=== PATIENT | female | born 1940 | race Caucasian/White ===

== ENCOUNTER 2020-11-16 15:15 | Emergency (ER) | payer MEDICARE, OTHER, SELFPAY ==
[2020-11-16 15:23] VITALS: BP 130/79; BP 136/78; PULSE 88; PULSE 90; RESP 20; TEMP 37.1; O2SAT 94; O2SAT 98; BMI 28.2
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
[2020-11-16 16:03] LABS: Basophils Percent Auto 0.2 % (0-2); Eosinophils Percent Auto 0.1 % (0-4); Hematocrit 34.3 % (37-47); Hemoglobin 11.1 g/dl (12.0-16.0); Imm Gran Abs Auto 0.04 X10*3/uL (0.00-0.03); Imm Gran Pct Auto 0.4 % (0.0-0.4); Lymphocytes Absolute Auto 0.5 X10*3/uL (1.2-4.9); Lymphocytes Percent Auto 5.9 % (20-40); MANUAL DIFF FLAG SCAN; Mean Corpuscular HGB Conc 32.4 g/dl (31.0-35.0); Mean Corpuscular Hemoglobin 31.4 pg (27.0-33.0); Mean Corpuscular Volume 96.9 fL (80-98); Mean Platelet Volume 9.4 fL (9.4-12.3); Monocytes Absolute Auto 0.5 X10*3/uL (0.1-1.2); Monocytes Percent Auto 5.6 % (2-11); Neutrophils Absolute Auto 8.1 X10*3/uL (2.0-8.3); Neutrophils Percent Auto 87.8 % (45-73); Platelet Count 226 X10*3/uL (160-400); Red Blood Count 3.54 X10*6/uL (4.20-5.50); SCAN SMEAR FLAG 1; White Blood Count 9.2 X10*3/uL (4.8-10.8)
[2020-11-16 16:23] LABS: SLIDE REVIEW VERIFIED
[2020-11-16 16:26] LABS: Prothrombin Time 118.8 SEC (10.8-13.0)
[2020-11-16 16:30] LABS: INTERNATIONAL NORM RATIO 9.8 (0.9-1.1); Partial Thromboplastin Time 73.5 SEC (24.1-38.0)
[2020-11-16 16:50] LABS: B Type Natriuretic Peptide 361 pg/mL (<100)
--- NOTE | 2020-11-16 16:56 | ECG_ITS ---
Test Reason : TACHYCARDIA Blood Pressure : / mmHG Vent. Rate : 103 BPM Atrial Rate : 141 BPM P-R Int : 000 ms QRS Dur : 148 ms QT Int : 406 ms P-R-T Axes : 000 083 -41 degrees QTc Int : 531 ms Atrial fibrillation with rapid ventricular response Right bundle branch block T wave abnormality, consider lateral ischemia Abnormal ECG No previous ECGs available Referred By: Shanique Ferguson Electronically Signed By:Dougie Mckeon
[2020-11-16 17:10] VITALS: BP 105/61; PULSE 107; RESP 20; O2SAT 95
[2020-11-16 17:25] VITALS: PULSE 125
[2020-11-16] MEDS: Metoprolol Tartrate 25 MG TABLET PO (17:25)
[2020-11-16] MEDS: Phytonadione (Vit K1) Oral 10 MG/ML AMPUL 2.5 MG PO (17:33)
[2020-11-16 18:17] VITALS: PULSE 99
--- NOTE | 2020-11-16 19:37 | MHC.CM.ED ---
Met with pt. Alert and orientated x3. Pt lives with and daughter in apartment with bedrooms and bathroom on second floor. States uses a walker ,cane and has a wheelchair. Has psoriastic arthritis. HAs difficulty with stairs and sometimes stays in her room upstairs and her family brings her food. Can ambulate short distance to BR. Pt states she has a very difficult time ambulating. Fell on stairs and bruised her elbow. INR 10. Thought she could rent a hospital bed for tomorrow. CM called [facility]- rental of hospital bed $185-$250/month. Can order through insurance, but that requires prescription, assessments and forms completed by PCP. Cannot deliver a bed to pt until Thursday or Thursday of next week. Pt agreeable to PT assessment in the am. Pt is homebound and will need VNA with INR checks every 2 days. Pt agreeable to [facility] and possible Home PT if recommended. Shanique SOSA aware and agreeable to plan. Will given hospital bed rental information to pt to consider. Pt unsure if she will rent or stay in her room upstairs. Pt tells CM they are looking for an apartment on one floor and her has an appointment with [facility] on Thursday for assistance. Pt requests an ambulance for transport home, so they can bring her into her room. Pt aware that insurance will not cover the cost of an ambulance home. Informed it could cost as much as $800. Pt states she will pay the bill. Referrals placed with [facility]. CM to follow for d/c needs.
[2020-11-16 20:45] VITALS: BP 115/67; PULSE 98; RESP 18; O2SAT 97
[2020-11-16 21:32] LABS: Alanine Aminotransferase 9 U/L (0-31); Albumin Level 3.1 g/dL (3.5-5.0); Alkaline Phosphatase 107 U/L (39-117); Anion Gap 12 (12-20); Aspartate Amino Transferase 15 U/L (5-31); Bilirubin Direct 0.3 mg/dL (0.0-0.5); Bilirubin Total 0.7 mg/dL (0.0-1.0); Blood Urea Nitrogen 23 mg/dL (9-16); Calcium 7.4 mg/dL (8.4-10.2); Carbon Dioxide 32 mmol/L (22-29); Chloride 99 mmol/L (96-108); Creatinine Clr Calc Pharmacy 55.9; Estimated Glomerular Filt Rate > 60; Glucose Random 142 mg/dL (60-115); Magnesium 1.8 mg/dL (1.6-2.6); Potassium 2.7 mmol/L (3.3-5.1); Sodium 140 mmol/L (135-145); Total Protein 5.6 g/dL (6.5-8.0)
--- NOTE | 2020-11-16 22:01 | MHC.CM.ED ---
Referrals made to [facility] for fci, INR checks every 2 days, medication management, chronic disease management and possible PT pending evaluation in am. Pt is homebound. Given CM contact card and information on hospital bed rentals from [facility]. Pt will need BLS transport home. Understands she may be billed. CM to follow for d/c needs.
[2020-11-17 00:39] VITALS: BP 101/54; PULSE 99; RESP 15; TEMP 37.1; O2SAT 96
[2020-11-17 00:46] LABS: Glucose Urine UA NEG (NEG); Leukocyte Esterase Urine 2+ (NEG); Nitrite Urine POS (NEG); Specific Gravity - Urine 1.015 (1.005-1.025); UACC Culture Trigger YES; Urine Blood TRACE (NEG); Urine Ketones NEG (NEG); Urine Protein NEG (NEG-TRACE)
[2020-11-17 00:47] LABS: Appearance Urine HAZY; Color Urine YELLOW
[2020-11-17 00:55] LABS: Bacteria Urine 3+ /LPF; RBC Urine 0-2 /HPF (0); Squamous Epithelial Cell Urine 1+ /LPF
[2020-11-17 00:56] LABS: Mucus Urine TRACE /LPF
[2020-11-17 02:00] VITALS: BP 101/54; PULSE 93; RESP 20; O2SAT 100
[2020-11-17 03:22] VITALS: BP 101/64; PULSE 90; RESP 18; O2SAT 100
[2020-11-17 04:00] VITALS: BP 84/53; PULSE 95; RESP 14; O2SAT 96
[2020-11-17 05:35] VITALS: BP 98/66; PULSE 100; RESP 16; O2SAT 96
[2020-11-17 06:30] LABS: MANUAL DIFF FLAG NO
[2020-11-17 06:32] LABS: Basophils Percent Auto 0.2 % (0-2); Eosinophils Absolute Auto 0.1 X10*3/uL (0.0-0.4); Eosinophils Percent Auto 1.5 % (0-4); Hemoglobin 9.9 g/dl (12.0-16.0); Imm Gran Abs Auto 0.01 X10*3/uL (0.00-0.03); Imm Gran Pct Auto 0.2 % (0.0-0.4); Lymphocytes Absolute Auto 0.8 X10*3/uL (1.2-4.9); Lymphocytes Percent Auto 13.2 % (20-40); Mean Corpuscular HGB Conc 31.9 g/dl (31.0-35.0); Mean Corpuscular Hemoglobin 31.2 pg (27.0-33.0); Mean Corpuscular Volume 97.8 fL (80-98); Mean Platelet Volume 9.3 fL (9.4-12.3); Monocytes Absolute Auto 0.5 X10*3/uL (0.1-1.2); Monocytes Percent Auto 9.3 % (2-11); Neutrophils Absolute Auto 4.4 X10*3/uL (2.0-8.3); Neutrophils Percent Auto 75.6 % (45-73); Platelet Count 197 X10*3/uL (160-400); Red Blood Count 3.17 X10*6/uL (4.20-5.50); White Blood Count 5.8 X10*3/uL (4.8-10.8)
[2020-11-17 06:37] LABS: INTERNATIONAL NORM RATIO 2.3 (0.9-1.1); Prothrombin Time 27.7 SEC (10.8-13.0)
[2020-11-17] MEDS: Bumetanide 1 MG TABLET 3 MG PO (10:21)
[2020-11-17] MEDS: Potassium Chloride ER 20 MEQ TAB.ER.PRT 40 MEQ PO ×2 (10:21)
[2020-11-17 10:22] VITALS: BP 110/62; PULSE 98
[2020-11-17] MEDS: Metoprolol Tartrate 25 MG TABLET PO (10:22)
[2020-11-17 11:26] LABS: INTERNATIONAL NORM RATIO 1.7 (0.9-1.1); Prothrombin Time 20.2 SEC (10.8-13.0)
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
[2020-11-17 13:48] LABS: Potassium 3.3 mmol/L (3.3-5.1)
== END 2020-11-17 16:13 | disposition home or self-care (01) ==
PROVIDERS: Physician Assistant; Emergency Provider Emergency Medicine
DX: R79.89 Other specified abnormal findings of blood chemistry (principal); M79.605 Pain in left leg; M79.604 Pain in right leg; F41.1 Generalized anxiety disorder; F43.0 Acute stress reaction; Z79.899 Other long term (current) drug therapy
CPT/HCPCS: 36415; 80048; 80076; 81001; 81003; 83735; 83880; 84132; 85025; 85610; 85730; 86850; 86900; 86901; 87086; 93005; 97162; 99285; J3430

== ENCOUNTER 2021-02-22 15:42 | Outpatient (REF) | payer MEDICARE, OTHER, SELFPAY ==
[2021-02-22 16:05] LABS: Potassium 3.4 mmol/L (3.3-5.1)
== END 2021-02-22 15:43 | disposition home or self-care (01) ==
LOC: HO.LNP 15:42
PROVIDERS: Visit Provider Family Medicine
DX: E78.6 Lipoprotein deficiency (principal)
CPT/HCPCS: 84132

== ENCOUNTER 2022-02-19 10:55 | Inpatient (IN) | payer MEDICARE, OTHER, SELFPAY ==
[2022-02-19] VITALS (8 sets, daily range): BP systolic 72–150; BP diastolic 29–90; PULSE 80–123; RESP 11–20; TEMP 36.8–36.9; O2SAT 92–98; BMI 28.9
--- NOTE | ~2022-02-19 | XR_ITS ---
EXAMINATION: XR CHEST CLINICAL INFORMATION: Weakness COMPARISON: 02/20/2022 and 11/22/2018 TECHNIQUE: AP and lateral in 4 parts FINDINGS: Persistent abnormal opacity in the lower left hemithorax. Hyperlucent left upper lung suggests partial collapse of the left lower lobe. Suspect a combination of left lower lobe disease and effusion. Right lung is grossly clear. Heart and mediastinum are prominent and shifted to the left but grossly stable. Old healed right rib fractures. XR/XR chest 2V IMPRESSION: Persistent abnormal opacity at the left lung base, likely consolidation, collapse and effusion.
--- NOTE | ~2022-02-19 | CT_ITS ---
EXAMINATION: CT ANGIOGRAM OF THE CHEST WITH AND WITHOUT CONTRAST (CT PULMONARY ANGIOGRAM FOR PE) CLINICAL INFORMATION: Reason for Exam r/o PE, SOB COMPARISON: CT chest 02/21/2022 TECHNIQUE: Prior to contrast administration, noncontrast localization images were obtained. Subsequently, multidetector volumetric imaging was performed from the thoracic inlet to below the diaphragms following the administration of 75 mL Omnipaque 350 intravenous contrast. No contrast reaction reported Sagittal, coronal, and MIP oblique sagittal reformatted images were obtained on the CT workstation, uploaded to PACS, and reviewed. This CT examination was performed using dose optimization techniques as appropriate, variously including the following: *Automated exposure control *Adjustment of mA and/or kV according to patient size (this includes techniques or standardized protocols for targeted exams where dose is matched to indication/reason for exam; i.e. extremities or head) *Use of iterative reconstruction technique Total exam dose-length product 573 mGy-cm FINDINGS: QUALITY OF STUDY/CONTRAST BOLUS: Satisfactory. PULMONARY ARTERIES: No central or segmental pulmonary emboli. Main pulmonary artery is 4.2 cm diameter suggesting pulmonary hypertension. THORACIC AORTA: No aneurysm or dissection. LUNGS and PLEURA: Bilateral pleural effusions are seen, increased in size since 02/21/2022. There is collapse of the entire left lower lobe with only a small amount of aerated lung remaining at the left apex, significantly worse when compared to 02/21/2022. Bullous formation is seen indicative of COPD. On the right, lower lobe atelectasis is present. The right upper lobe and right middle lobe aerated. No suspicious lung masses are seen. PLEURA: No pleural effusion or pneumothorax. MEDIASTINUM: Normal heart size. ET tube present about 2 cm above the ryan. No pericardial effusion. No hilar or mediastinal lymphadenopathy. No evidence of septal bowing or right heart strain. CHEST WALL/AXILLA: No axillary or internal mammary lymphadenopathy. OSSEOUS STRUCTURES: Marked kyphoscoliosis is seen with osteopenia and near vertebral plana involving the T12 vertebral body UPPER ABDOMEN: An NG tube is present with its tip beyond the [id number]. No reflux of contrast into the hepatic veins to suggest elevated right heart pressures. CT/CT angio chest PE protocol IMPRESSION: 1. No evidence of pulmonary emboli. 2. Bilateral pleural effusions with complete collapse of the left lower lobe and partial atelectasis right lower lobe. 3. Underlying COPD. VTE: negative.
--- NOTE | ~2022-02-19 | CT_ITS ---
EXAMINATION: CT CHEST WITHOUT CONTRAST CLINICAL INFORMATION: Bacteremia. Abnormal chest x-ray. COMPARISON: Previous chest x-ray most recent from yesterday TECHNIQUE: Multidetector volumetric CT imaging of the chest was done. Axial MIP volume rendering provided. Sagittal and coronal reformatted images were obtained. This CT examination was performed using dose optimization techniques as appropriate, variously including the following: *Automated exposure control *Adjustment of mA and/or kV according to patient size (this includes techniques or standardized protocols for targeted exams where dose is matched to indication/reason for exam; i.e. extremities or head) *Use of iterative reconstruction technique DLP: 268 mGy-cm FINDINGS: LUNGS: There is volume loss to the left hemithorax with shift of the central mediastinal structures to the left. There is angular atelectasis/consolidation. There are patchy areas of left lower lobe atelectasis and consolidation. No endobronchial or endotracheal lesion is. There is right apical pleural thickening. There are small clustered nodules in the superior segment of the right lower lobe that are partially calcified, largest measuring 3 mm axial image 158 series 8. There are larger clustered calcified and noncalcified right lower lobe nodules, largest measuring 7 mm axial image 412 series 8. Clustered appearance favors an infectious or inflammatory process. MEDIASTINUM: There is a small nodule in the lower left thyroid lobe measuring 1 cm. There is question of a larger 2 x 3 cm nodule lower pole of the right lobe.. The heart is enlarged. There is coronary artery calcification. There is no pericardial effusion. Pulmonary arteries are enlarged, main pulmonary artery measuring 4.5 cm suggestive of pulmonary artery hypertension. There are small mediastinal lymph nodes. Evaluation for hilar adenopathy is limited without contrast. PLEURA: There is a tiny left pleural effusion. There is no right pleural effusion. AXILLA: No lymphadenopathy. UPPER ABDOMEN: There is a small stone in the upper pole of the right kidney. There may be fatty infiltration of the pancreas. There is a small left adrenal calcification. The left adrenal gland appears enlarged and low in attenuation suggestive of adenomatous change or hyperplasia. OSSEOUS STRUCTURES: There is increased thoracic kyphosis. There is a severe old-appearing T12 vertebral body compression fracture. There is an old mild compression fracture of the L2 vertebral body. There is question of an old manubrial fracture versus motion artifact. There is arthritis at the shoulders. CT/CT chest wo con IMPRESSION: Volume loss left hemithorax with shift of the central mediastinal structures to the left. Patchy areas of lingula and left lower lobe atelectasis/consolidation and tiny left pleural effusion. Small clustered calcified and noncalcified right pulmonary nodules in the right upper and right lower lobes. Clustered appearance favors an infectious or inflammatory process. Enlarged heart. Coronary artery calcification. Enlarged pulmonary arteries suggestive of pulmonary artery hypertension. Question bilateral thyroid nodules. Follow-up thyroid ultrasound should be considered. Increased thoracic kyphosis. T12 severe vertebral body compression fracture. Question old manubrial fracture. Fleischner guidelines were followed.
--- NOTE | ~2022-02-19 | XR_ITS ---
EXAMINATION: XR CHEST CLINICAL INFORMATION: Left lung collapse. COMPARISON: Chest radiograph dated 05/11/2022 and 02/20/2022, chest CT scan dated 02/21/2022. TECHNIQUE: Frontal view of the chest was obtained. FINDINGS: Endotracheal tube with tip terminating approximately 4.5 cm proximal to ryan. Right-sided internal jugular catheter with tip terminating in the superior vena cava. Rotated and kyphotic positioning is suboptimal. There are increased pulmonary vascular markings with mild bibasilar opacification. Cardiomegaly mediastinal shift to left is again seen with mild cardiac enlargement. XR/XR chest 1V IMPRESSION: 1. Left lung volume loss with atelectasis seen on the previous CT scan. Overall appearance is similar. 2. Increased pulmonary vascular markings with small bilateral pleural effusions similar to the previous study suggesting CHF. This represents interval worsening from the [facility] radiograph.
--- NOTE | ~2022-02-19 | XR_ITS ---
EXAMINATION: XR CHEST CLINICAL INFORMATION: Post right thoracentesis. COMPARISON: May 12, 2022. TECHNIQUE: Portable AP view of the chest was obtained. XR/XR chest 1V FINDINGS/IMPRESSION: The study is limited by portable technique, rotation, low lung volumes, and patient body habitus. Findings suggest decreased pleural fluid compared with 4 days prior. No gross pneumothorax is seen, reportedly status post right thoracentesis. Moderate left basilar hazy density suggests pleural fluid, atelectasis, infiltrate, and/or mass, unchanged. The cardiac silhouette is poorly evaluated. The aorta is atherosclerotic. There are old, healed right rib fractures. The tip of a presumed right internal jugular central venous line projects over the junction of the superior vena cava and right atrium.
--- NOTE | ~2022-02-19 | XR_ITS ---
EXAMINATION: XR CHEST CLINICAL INFORMATION: Shortness of breath. COMPARISON: 11/22/2018 TECHNIQUE: Frontal AP portable view of the chest was obtained. FINDINGS: Patient is rotated to the left on both images. Assessment of the left lung base is limited as a result. Opacification of the left base may be due to a combination of overlying structures and elevation of the hemidiaphragm. Consolidation and left-sided effusion are possible. The right lung is hyperexpanded with flattened a flattened hemidiaphragm, consistent with COPD. No pneumothoraces. No right-sided pleural effusion. Calcific atherosclerosis is present in the thoracic aorta. Cardiac silhouette appears prominent, though assessment is limited by positioning. Bones are osteopenic. No acute osseous findings. XR/XR chest 1V IMPRESSION: Opacification of the left lung base which may correspond to a combination of overlying structures, effusion, atelectasis, or consolidation. Assessment is limited by the patient rotation. Consider repeat PA and lateral views when able.
--- NOTE | ~2022-02-19 | XR_ITS ---
EXAMINATION: XR CHEST CLINICAL INFORMATION: Intubation and orogastric tube placement. COMPARISON: Multiple priors with the last chest x-ray of 02/20/[address] of 02/21/2022. TECHNIQUE: Frontal view of the chest was obtained. FINDINGS: The patient is rotated to the left. An endotracheal tube terminates 2.9 cm above the ryan. An enteric tube courses below the diaphragm, the tip is external to the field of view. Right central venous catheter tip projects over the expected location of the lower SVC considering patient's rotation. Considering significant patient rotation, the cardiomediastinal silhouette is likely unchanged. Diffuse haziness with patchy interstitial and airspace opacities are noted in the right lung with apparent worsened aeration. The visualized left upper lung zone demonstrates mild vascular prominence. No pneumothorax is noted in the visualized chest. No acute osseous abnormality. XR/XR chest 1V IMPRESSION: An endotracheal tube terminates 2.9 cm above the ryan. An orogastric tube courses below the diaphragm, the tip is external to the [id number]. Significant leftward rotation of the patient somewhat limits evaluation. There is haziness with decreased aeration in the right lung compared to the last study. Cardiomegaly. Recommend repeat chest x-ray with proper patient positioning.
--- NOTE | ~2022-02-19 | US_ITS ---
EXAMINATION: ULTRASOUND-GUIDED PORTABLE DIAGNOSTIC RIGHT THORACENTESIS CLINICAL INFORMATION: Loculated right pleural effusion. COMPARISON: None. TECHNIQUE: Following explaining ultrasound-guided right thoracentesis procedure, benefits and risks, a written consent was obtained from the patient's son by phone in presence of ultrasound technologists [place]. Patient was lying in semi-(this view on ICU bed with preliminary ultrasound imaging was obtained through the right posterior chest. An optimal site was selected, marked and draped in usual sterile manner. 1% lidocaine was injected along the marked site posterolateral a. Through a small skin incision a 4 [place] Yueh catheter was advanced into the pleural space. Moderate amount of fluid was removed in a suction bottle. Following drainage of fluid and observing normal fluid return, catheter was withdrawn and complete hemostasis achieved at the puncture site. Sterile dressing was applied postprocedure. Patient tolerated the procedure extremely well. Chest x-ray inspiration and expiration was obtained. FINDINGS: On preliminary ultrasound imaging there is moderate right pleural effusion. Approximately 500 mL of clear yellowish pleural fluid was removed. All of this fluid was held in patients known for fluid to be sent to lab part of physicians orders. US/US thoracentesis IMPRESSION: Successful ultrasound-guided portable right thoracentesis was performed with approximately 500 mL of yellowish fluid removed.
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
[2022-02-19 11:46] LABS: MANUAL DIFF FLAG NO
[2022-02-19 11:50] LABS: Basophils Percent Auto 0.4 % (0-2); Eosinophils Absolute Auto 0.1 X10*3/uL (0.0-0.4); Eosinophils Percent Auto 0.9 % (0-4); Hematocrit 36.6 % (37.0-47.0); Hemoglobin 12.1 g/dl (12.0-16.0); Imm Gran Abs Auto 0.01 X10*3/uL (0.00-0.03); Imm Gran Pct Auto 0.2 % (0.0-0.4); Lymphocytes Absolute Auto 0.9 X10*3/uL (1.2-4.9); Lymphocytes Percent Auto 16.1 % (20-40); Mean Corpuscular HGB Conc 33.1 g/dl (31.0-35.0); Mean Corpuscular Hemoglobin 30.1 pg (27.0-33.0); Mean Platelet Volume 9.2 fL (9.4-12.3); Monocytes Absolute Auto 0.4 X10*3/uL (0.1-1.2); Neutrophils Absolute Auto 4.1 x10*3/uL (2.0-8.3); Neutrophils Percent Auto 75.4 % (45-73); Platelet Count 232 X10*3/uL (160-400); Red Blood Count 4.02 X10*6/uL (4.20-5.50); Red Cell Distribution Width 12.9 % (11.0-16.0); White Blood Count 5.4 X10*3/uL (4.8-10.8)
[2022-02-19 11:52] LABS: INTERNATIONAL NORM RATIO 3.3 (0.9-1.1); Prothrombin Time 39.3 SEC (10.0-13.1)
[2022-02-19 12:00] LABS: COVID-19 Test Negative (Negative); IDNOW Serial# 16C4AD1C
[2022-02-19 12:19] LABS: Alanine Aminotransferase < 6 U/L (0-31); Alkaline Phosphatase 58 U/L (39-117); Anion Gap 14 (12-20); Aspartate Amino Transferase 11 U/L (5-31); Bilirubin Direct 0.3 mg/dL (0.0-0.5); Bilirubin Total 0.5 mg/dL (0.0-1.0); Blood Urea Nitrogen 18 mg/dL (9-16); Calcium 7.6 mg/dL (8.4-10.2); Carbon Dioxide 33 mmol/L (22-29); Chloride 99 mmol/L (96-108); Creatinine Clr Calc Pharmacy 60.5; Estimated Glomerular Filt Rate > 60; Glucose Random 110 mg/dL (60-115); Magnesium 1.5 mg/dL (1.6-2.6); Potassium 2.8 mmol/L (3.3-5.1); Sodium 143 mmol/L (135-145); Total Protein 5.5 g/dL (6.5-8.0)
--- NOTE | 2022-02-19 12:25 | ECG_ITS ---
Test Reason : Weakness Blood Pressure : / mmHG Vent. Rate : 104 BPM Atrial Rate : 000 BPM P-R Int : 000 ms QRS Dur : 168 ms QT Int : 408 ms P-R-T Axes : 000 082 -10 degrees QTc Int : 536 ms Atrial fibrillation with rapid ventricular response with premature ventricular or aberrantly conducted complexes Right bundle branch block Abnormal ECG When compared with ECG of 16-NOV-2020 16:46, No significant change was found Referred By: Liana Summers Electronically Signed By:HERI MOORE
[2022-02-19] MEDS: Potassium Chloride/H20 10 MEQ/100 ML PIGGYBACK 100 MEQ IV ×2 (12:45→15:00)
[2022-02-19] MEDS: Potassium Chloride ER 20 MEQ TAB.ER.PRT 40 MEQ PO (12:45)
--- NOTE | 2022-02-19 12:46 | PHA.MEDREC ---
Pharmacy Consult ? Medication Reconciliation Pharmacy has completed the medication reconciliation.
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
[2022-02-19] MEDS: HYDROcodone Bit/Acetam 5/325 TABLET 1 TAB PO (14:17)
[2022-02-19] MEDS: 0.9 % Sodium Chloride 1,000 ML 999 ML IVCONT (16:46)
[2022-02-19] MEDS: Magnesium Sulfate/H2O 2 GM/50 ML PIGGYBACK IV (17:35)
--- NOTE | 2022-02-19 18:41 | PC.NURSE ---
Pt was changed and repositioned @1842
[2022-02-19 19:06] LABS: Appearance Urine Clear; Color Urine Dark Yellow; Glucose Urine UA Negative (Negative); Leukocyte Esterase Urine Moderate (2+) (Negative); Nitrite Urine Positive (Negative); UACC Culture Trigger YES; Urine Blood Moderate (2+) (Negative); Urine Ketones Trace mg/dL (Negative); Urine Protein Trace mg/dL (Neg-Trace)
[2022-02-19 19:13] LABS: Bacteria Urine 3+ (None Seen); Hyaline Casts Urine 0-2 /LPF (0-2)
[2022-02-19 19:15] LABS: WBC Urine 21-50 /HPF (0-5)
[2022-02-19 21:51] LABS: Magnesium 1.9 mg/dL (1.6-2.6); Potassium 3.1 mmol/L (3.3-5.1)
[2022-02-19] MEDS: traMADoL HCL 50 MG TABLET PO (22:55)
[2022-02-19] MEDS: Potassium Chloride Packet 20 MEQ PACKET 40 MEQ PO (22:57)
--- NOTE | 2022-02-19 22:59 | PC.NURSE ---
Soft BP readings reported to Dr. Wilson 72-109/36-70, P 90-94-per MD continue to monitor BP's and pulse report to MD systolic BP below 85.
[2022-02-20] VITALS: BP 94/49; PULSE 127; RESP 17; TEMP 36.7; O2SAT 97
[2022-02-20 00:18] LABS: Potassium 3.7 mmol/L (3.3-5.1)
[2022-02-20 02:54] VITALS: BP 90/44; PULSE 85; RESP 16; TEMP 36.1; O2SAT 93
[2022-02-20 03:50] LABS: Anion Gap 16 (12-20); Blood Urea Nitrogen 19 mg/dL (9-16); Calcium 7.6 mg/dL (8.4-10.2); Carbon Dioxide 30 mmol/L (22-29); Chloride 102 mmol/L (96-108); Creatinine Clr Calc Pharmacy 58.3; Estimated Glomerular Filt Rate > 60; Glucose Random 93 mg/dL (60-115); Potassium 3.6 mmol/L (3.3-5.1); Sodium 144 mmol/L (135-145)
[2022-02-20] MEDS: 0.9 % Sodium Chloride 500 ML 999 ML IV (05:11)
[2022-02-20] MEDS: cefTRIAXone sodium 1 GM in 0.9 % Sodium Chloride 50 ML IV (05:53)
[2022-02-20 05:54] VITALS: BP 100/47; PULSE 83; RESP 16; TEMP 36.7; O2SAT 96
[2022-02-20 06:01] LABS: Lactic Acid 1.7 mmol/L (0.5-2.0)
[2022-02-20 06:12] LABS: B Type Natriuretic Peptide 141 pg/mL (<100); Troponin-I High Sensitivity 17.2 ng/L (<3.5-17.0)
[2022-02-20 08:00] VITALS: BP 97/45; PULSE 100; RESP 16; O2SAT 98
[2022-02-20] MEDS: Bumetanide 1 MG TABLET 3 MG PO (08:29)
[2022-02-20] MEDS: cephALEXin 500 MG CAPSULE PO (08:29)
[2022-02-20] MEDS: Metoprolol Tartrate 25 MG TABLET PO (08:30)
[2022-02-20] MEDS: traMADoL HCL 50 MG TABLET 25 MG PO (08:30)
[2022-02-20] MEDS: Potassium Chloride ER 20 MEQ TAB.ER.PRT 60 MEQ PO (08:30)
[2022-02-20 08:45] LABS: INTERNATIONAL NORM RATIO 2.9 (0.9-1.1); Prothrombin Time 34.7 SEC (10.0-13.1)
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
--- NOTE | 2022-02-20 11:11 | P.HPHOSP_ITS ---
History of Present Illness Date of Service: 02/20/22 Chief Complaint: anxiety / home stress This is a 81 yo F with a PMH of A. fib (presumed persistent), CHF (unspecified), amongst others who is bed bound presented to [facility] ED on 02/19/22 with complaints of anxiety and increased stress relating to her who is current is a resident at local alf facility. She reports that her is to be released from SNF soon and that has increased her anxiety (see case mgmt note for full details). She presented seeking inability to care for herself at home. She reports she currently lives alone, but her daughter helps out. Medically, she reports that she has been bed bound for >1 year now. She reports she is reliant on all ADLs. She denies any current complaints, but when asked specifically about symptoms, she reports incontinence but denies any dysuria/urgency/frequency. She denies any fevers or chills. She reports a decreased appetite. She was worked up in the ED with plans for case mgmt consult for placement. However, on the morning of admission, she was noted to be hypotensive with a p ositive UA. Hence, she will be admitted for further treatment. Review of Systems Review of Systems: negative except HPI [facility] Medical History (Updated 02/20/22 @ 10:05 by SHEILA Lowery) Afib Anxiety CHF (congestive heart failure) Pertinent family history: CAD in mother and father Surgical History (Updated 02/20/22 @ 11:18 by Willem Grayson MD) H/O hernia repair History of orthopedic surgery Social History (Updated 02/20/22 @ 11:18 by Willem Grayson MD) Alcohol intake: never Patient Tobacco Use Status: Never used Tobacco Use of substances other than those prescribed or required for medical reasons: No Advance Directives: No Advance Directives Information Provided: Yes Meds Allergies Allergy/AdvReac Type Severity Reaction Status Date / Time No Known Allergies Allergy Unverified 03/22/20 19:41 [No Known Allergies*] Active Medications: Current Medications Acetaminophen (Acetaminophen 325 Mg Tablet) 650 mg PO Q6H PRN PRN Reason: Pain, Mild (Pain Scale 1-3) Bumetanide (Bumetanide 1 Mg Tablet) 3 mg PO BID COUNTS INCLUDE 234 BEDS AT THE [facility]; Protocol Last Admin: 02/20/22 08:29 Dose: 3 mg Cephalexin HCl (Cephalexin 500 Mg Capsule) 500 mg PO Q12H COUNTS INCLUDE 234 BEDS AT THE [facility] Stop: 02/25/22 07:29 Last Admin: 02/20/22 08:29 Dose: 500 mg Metoprolol Tartrate (Metoprolol Tartrate 25 Mg Tablet) 25 mg PO BID COUNTS INCLUDE 234 BEDS AT THE [facility]; Protocol Last Admin: 02/20/22 08:30 Dose: 25 mg Ondansetron HCl (Ondansetron Hcl 4 Mg/2 Ml Vial) 4 mg IVPUSH Q8H PRN PRN Reason: Nausea and Vomiting Pharmacy Consult (Consult Rx Perform Med Rec) 1 each MISCELLANE ONCE PRN PRN Reason: Consult order Potassium Chloride (Potassium Chloride Er 20 Meq Tab.Er.Prt) 60 meq PO DAILY COUNTS INCLUDE 234 BEDS AT THE [facility] Last Admin: 02/20/22 08:30 Dose: 60 meq Sertraline HCl (Sertraline Hcl 100 Mg Tablet) 100 mg PO BEDTIME COUNTS INCLUDE 234 BEDS AT THE [facility] Sodium Chloride (0.9 % Sodium Chloride Flush 3 Ml Syringe) 3 ml IVFLUSH QSHIFT COUNTS INCLUDE 234 BEDS AT THE [facility] Warfarin Sodium (Warfarin Sodium 1 Mg Tablet) 1 mg PO MOTUWETHFR@1800 COUNTS INCLUDE 234 BEDS AT THE [facility] Warfarin Sodium (Warfarin Sodium 2 Mg Tablet) 2 mg PO SUSA@1800 COUNTS INCLUDE 234 BEDS AT THE [facility] Home Medications Medication Instructions Recorded Confirmed Last Taken Type bumetanide 1 mg tablet 3 mg PO BID 11/16/20 02/19/22 02/18/22 History metoprolol tartrate 25 mg tablet 25 mg PO BID 11/16/20 02/19/22 02/18/22 History potassium chloride 20 mEq 3 tab PO DAILY 11/16/20 02/19/22 02/18/22 History tablet,extended release(part/cryst) sertraline 100 mg tablet 1 tab PO BEDTIME 11/16/20 02/19/22 02/18/22 History warfarin 1 mg tablet 1 mg PO MOTUWETHFR@1800 11/16/20 02/19/22 02/18/22 History acetaminophen 325 mg tablet 650 mg PO Q6H PRN Pain 02/19/22 02/19/22 Unknown History (Tylenol) cranberry fruit concentrate 250 mg 250 mg PO TID 02/19/22 02/19/22 Unknown History chewable tablet (Azo Cranberry) loperamide 2 mg tablet 2 mg PO Q6H PRN Diarrhea 02/19/22 02/19/22 Unknown History warfarin 1 mg tablet 2 mg PO SUSA@1800 02/19/22 02/19/22 02/16/22 History Physical Exam Vital Signs and Narrative: Vital Signs: Last Vital Signs Temp 98.1 F 02/20/22 05:54 Pulse 100 02/20/22 08:00 Resp 16 02/20/22 08:00 BP 97/45 L 02/20/22 08:00 Pulse Ox 98 02/20/22 08:00 O2 Del Method 02/20/22 08:00 BMI result Body Mass Index 28.9 Const: Other: Constitutional - Awake and Alert, No apparent distress Eyes - PERRLA, EOMI Cardiovascular - IRR, S1S2; no JVD appreciated Respiratory - Normal lung expansion, Normal respiratory effort, No respiratory distress, CTA bilaterally Gastrointestinal - NT / ND; +BS; No rebound or guarding - No CVA tenderness Extremities - no calf tenderness bilaterally, no swelling Musculoskeletal - contracted b/l LE Skin - Warm/Dry, no decub ulcers Neurological - Alert & oriented x3, No focal deficit Psychological - Appropriate affect Results Labs CBC and Chem 7: 02/19/22 11:41 02/20/22 03:27 Labs: Laboratory Results - last 24 hr 02/19/22 02/19/22 02/19/22 11:41 11:41 11:41 MCV 91.0 MCH 30.1 MCHC 33.1 RDW 12.9 Plt Count 232 MPV 9.2 L Immature Gran % (Auto) 0.2 Neut % (Auto) 75.4 H Lymph % (Auto) 16.1 L Phillips % (Auto) 7.0 Eos % (Auto) 0.9 Baso % (Auto) 0.4 Lymph # (Auto) 0.9 L Phillips # (Auto) 0.4 Eos # (Auto) 0.1 Baso # (Auto) 0.0 Abs Immat Gran (auto) 0.01 Absolute Neuts (auto) 4.1 Absolute Nucleated RBC 0.000 Nucleated RBC % (auto) 0.0 PT 39.3 H INR 3.3 H Anion Gap 14 Estim Creat Clear Calc 60.5 Estimated GFR > 60 Random Glucose 110 Lactic Acid Calcium 7.6 L Magnesium 1.5 L Total Bilirubin 0.5 Direct Bilirubin 0.3 AST 11 ALT < 6 Alkaline Phosphatase 58 D B-Natriuretic Peptide Total Protein 5.5 L Albumin 3.0 L Urine Color Urine Appearance Urine pH Ur Specific Colony Urine Protein Urine Glucose (UA) Urine Ketones Urine Blood Urine Nitrite Ur Leukocyte Esterase Urine RBC Urine WBC Ur Squamous Epith Cells Urine Bacteria Hyaline Casts COVID-19 (JASWANT) COVID-19 Clin Com 02/19/22 02/19/22 02/19/22 11:41 18:54 21:23 MCV MCH MCHC RDW Plt Count MPV Immature Gran % (Auto) Neut % (Auto) Lymph % (Auto) Phillips % (Auto) Eos % (Auto) Baso % (Auto) Lymph # (Auto) Phillips # (Auto) Eos # (Auto) Baso # (Auto) Abs Immat Gran (auto) Absolute Neuts (auto) Absolute Nucleated RBC Nucleated RBC % (auto) PT INR Anion Gap Estim Creat Clear Calc Estimated GFR Random Glucose Lactic Acid Calcium Magnesium 1.9 Total Bilirubin Direct Bilirubin AST ALT Alkaline Phosphatase B-Natriuretic Peptide Total Protein Albumin Urine Color Dark Yellow Urine Appearance Clear Urine pH 6.0 Ur Specific Colony 1.020 Urine Protein Trace Urine Glucose (UA) Negative Urine Ketones Trace Urine Blood Moderate (2+) H Urine Nitrite Positive H Ur Leukocyte Esterase Moderate (2+) H Urine RBC 11-20 H Urine WBC 21-50 H Ur Squamous Epith Cells 6-10 Urine Bacteria 3+ Hyaline Casts 0-2 COVID-19 (JASWANT) Negative COVID-19 [employer] [place] Com See Note 02/20/22 02/20/22 02/20/22 03:27 05:41 05:42 MCV MCH MCHC RDW Plt Count MPV Immature Gran % (Auto) Neut % (Auto) Lymph % (Auto) Phillips % (Auto) Eos % (Auto) Baso % (Auto) Lymph # (Auto) Phillips # (Auto) Eos # (Auto) Baso # (Auto) Abs Immat Gran (auto) Absolute Neuts (auto) Absolute Nucleated RBC Nucleated RBC % (auto) PT INR Anion Gap 16 Estim Creat Clear Calc 58.3 Estimated GFR > 60 Random Glucose 93 Lactic Acid 1.7 Calcium 7.6 L Magnesium Total Bilirubin Direct Bilirubin AST ALT Alkaline Phosphatase B-Natriuretic Peptide 141 H Total Protein Albumin Urine Color Urine Appearance Urine pH Ur Specific Colony Urine Protein Urine Glucose (UA) Urine Ketones Urine Blood Urine Nitrite Ur Leukocyte Esterase Urine RBC Urine WBC Ur Squamous Epith Cells Urine Bacteria Hyaline Casts COVID-19 (JASWANT) COVID-19 Clin Com 02/20/22 08:28 MCV MCH MCHC RDW Plt Count MPV Immature Gran % (Auto) Neut % (Auto) Lymph % (Auto) Phillips % (Auto) Eos % (Auto) Baso % (Auto) Lymph # (Auto) Phillips # (Auto) Eos # (Auto) Baso # (Auto) Abs Immat Gran (auto) Absolute Neuts (auto) Absolute Nucleated RBC Nucleated RBC % (auto) PT 34.7 H INR 2.9 H Anion Gap Estim Creat Clear Calc Estimated GFR Random Glucose Lactic Acid Calcium Magnesium Total Bilirubin Direct Bilirubin AST ALT Alkaline Phosphatase B-Natriuretic Peptide Total Protein Albumin Urine Color Urine Appearance Urine pH Ur Specific Colony Urine Protein Urine Glucose (UA) Urine Ketones Urine Blood Urine Nitrite Ur Leukocyte Esterase Urine RBC Urine WBC Ur Squamous Epith Cells Urine Bacteria Hyaline Casts COVID-19 (JASWANT) COVID-19 Clin Com Imaging Radiologist's Impressions: Impressions Chest X-Ray 02/20/22 05:06 IMPRESSION: Opacification of the left lung base which may correspond to a combination of overlying structures, effusion, atelectasis, or consolidation. Assessment is limited by the patient rotation. Consider repeat PA and lateral views when able. Assessment and Plan (1) Acute UTI: Status: Acute (2) Acute hypotension: Status: Acute Plan This is a 81 year old female with a PMH of A. fib (presumed persistent), chronic CHF (no recent echo in system), anxiety who presented to [facility] ED on 02/19/22 initially for psychosocial reasons. She was initially a case mgmt consult for placement but she has become increasing hypotensive with a positive UA. Hence, she will be admitted for further care. 1. Hypotension asymptomatic and improving suspected hypovoluemic and no due to severe sepsis/septic shock has been given 2L IVF since ED arrival, will given gentle hydration in light of her CHF history 2. UTI UA positive and symptoms of incontinence IV rocephin f/u cultures pt is not severely septic at this time 3. A. Fib (presumed persistent) continue coumadin -- INR daily hold metoprolol in light of her hyoptension if RVR, may need dig / cardiology consult 4. Chronic CHF, unspecified hold bumex monitor respiratory status judiciously while receiving IVF 5. Mood continue baseline meds 6. HypoK/hypoMg repleted and improved monitor daily continue baseline potassium Full Code DVT pptx Endorses her daughter as her HCP. Due to the patients baseline history of CHF and current hypotension + UTI, I anticipate she will require judicious use of IVF so as to not put her in fluid overload. Furthermore, she will require IV antitibiotics for UTI and bacteremia will need to be ruled out. Due to these reasons, I anticipiate she will need a medically necessary inpatient hospitalization which is likely to require at least 2 midnights in the hospital. This cannot be completed in a less acute setting. Quality Stroke Does the patient have a stroke diagnosis?: No VTE Prior VTE?: No VTE Risk Level:: Medical - moderate - high VTE Device Contraindication: Treatment Not Indicated VTE Drug Contraindication: Treatment Not Indicated
[2022-02-20 11:41] LABS: Troponin-I High Sensitivity 13.5 ng/L (<3.5-17.0)
[2022-02-20 13:58] VITALS: BP 100/44; PULSE 98; RESP 16; O2SAT 94
[2022-02-20] MEDS: HYDROcodone Bit/Acetam 5/325 TABLET 1 TAB PO (15:36)
[2022-02-20] MEDS: 0.9 % Sodium Chloride Flush 3 ML SYRINGE IVFLUSH (15:37)
--- NOTE | 2022-02-20 17:07 | PC.NURSE ---
Pt placed in hospital bed.
[2022-02-20] MEDS: Warfarin Sodium 1 MG TABLET PO (20:21)
[2022-02-20] MEDS: Sertraline HCL 100 MG TABLET PO (20:21)
[2022-02-20 23:51] VITALS: BP 94/51; PULSE 96; RESP 16; TEMP 36.5; O2SAT 94
[2022-02-21] VITALS (9 sets, daily range): BP systolic 95–112; BP diastolic 42–74; PULSE 96–142; RESP 14–20; TEMP 36.4–36.7; O2SAT 90–96; BMI 28.9
[2022-02-21] MEDS: cefTRIAXone sodium 1 GM in 0.9 % Sodium Chloride 50 ML IV (05:32)
[2022-02-21 07:14] LABS: Anion Gap 13 (12-20); Blood Urea Nitrogen 20 mg/dL (9-16); Calcium 8.1 mg/dL (8.4-10.2); Carbon Dioxide 31 mmol/L (22-29); Chloride 104 mmol/L (96-108); Creatinine Clr Calc Pharmacy 52.1; Estimated Glomerular Filt Rate 57; Glucose Random 91 mg/dL (60-115); Potassium 4.2 mmol/L (3.3-5.1); Sodium 144 mmol/L (135-145)
--- NOTE | 2022-02-21 08:47 | PC.NURSE ---
Lab called to report blood culture results: Gram positive cocci & clusters on 2nd set of cultures.
[2022-02-21] MEDS: Potassium Chloride ER 20 MEQ TAB.ER.PRT 60 MEQ PO (09:20)
[2022-02-21] MEDS: 0.9 % Sodium Chloride Flush 3 ML SYRINGE IVFLUSH ×2 (09:20→20:13)
[2022-02-21 09:29] LABS: INTERNATIONAL NORM RATIO 2.2 (0.9-1.1); Prothrombin Time 26.1 SEC (10.0-13.1)
[2022-02-21] MEDS: Acetaminophen 325 MG TABLET 650 MG PO ×3 (10:10→22:27)
[2022-02-21] MEDS: traMADoL HCL 50 MG TABLET 25 MG PO ×3 (11:16→22:28)
[2022-02-21] MEDS: vancomycin HCL 1,500 MG in 0.9 % Sodium Chloride 500 ML 333.33 MG IV (11:17)
--- NOTE | 2022-02-21 12:18 | MHC.CM.PN ---
Lab reports + blood cultures: pt on IV ATB. PT eval does not support skilled rehab needs noting pt has developing contractures and is a desi transfer. Pt has been bedbound for over a year and states it was easier for her dtr to care for her if she remained in bed. STR referrals are pending - no offers as yet. Pt may be more appropriate for LTC however, she lacks a secondary payor. [facility] financial has been contacted. Pt will need to provide financial documents - her spouse is a resident of [facility] and her daughter is unable to be reached by phone despite messages left daily. CM to continue to contact dtr Haley to discuss d/c options and to assist with documents needed for [employer] application. CM will update SNF referrals with PT eval and + blood cx results.
--- NOTE | 2022-02-21 12:54 | P.PNIM_ITS ---
Subjective Subjective Date of Service: 02/21/22 Interval History: seen and examined this morning Follow-up for possible UTI, inability care for herself Now with positive blood cultures Denies abdominal pain, nausea, vomiting, fever, chills Does report lower extremity pain which he reports is chronic in nature Review of Systems Review of Systems: Yes all other systems are reviewed and are negative Constitutional Constitutional: Denies chills and Denies fever(s) Cardiovascular Cardiovascular: Denies chest pain, Denies palpitations and Denies dyspnea Respiratory Respiratory: Denies cough and Denies dyspnea Gastrointestinal Gastrointestinal: Denies abdominal pain, Denies nausea and Denies vomiting Genitourinary Genitourinary: Denies dysuria Endocrine Endocrine: Denies palpitations Physical Exam Vital Signs: Vital Signs: Last Vital Signs Temp 98.1 F 02/21/22 07:32 Pulse 97 02/21/22 11:52 Resp 18 02/21/22 11:52 BP 101/59 L 02/21/22 11:52 Pulse Ox 94 02/21/22 11:52 O2 Del Method 02/21/22 11:52 BMI result Body Mass Index 28.9 Const: General: comfortable, alert and awake Nutritional Appearance: overweight Orientation/consciousness: patient oriented x3 Resp: Effort & Inspection: normal respiratory effort and able to speak in complete sentences Auscultation: clear to auscultation bilaterally Cardio: Rate: regular rate Heart sounds: S1 normal heart sound present and S2 normal heart sound present GI: Inspection: No distended Palpation (GI): not soft and nontender Neuro: General: patient oriented x3 and CN's II-XI intact bilaterally Extrem: Other: left foot deformity -chronic Objective Data Active Medications Acetaminophen (Acetaminophen 325 Mg Tablet) 650 mg PO Q6H PRN PRN Reason: Pain, Mild (Pain Scale 1-3) Last Admin: 02/21/22 10:10 Dose: 650 mg Documented By: CHELA Bumetanide (Bumetanide 1 Mg Tablet) 3 mg PO BID [facility]; Protocol Last Admin: 02/20/22 08:29 Dose: 3 mg Documented By: MIMA Ceftriaxone Sodium 1 gm/ (Sodium Chloride) 50 mls @ 100 mls/hr IV Q24H [facility] Last Infusion: 02/21/22 06:11 Dose: 100 mls/hr Documented By: ERICKSON Vancomycin HCl 1,000 mg/ (Sodium Chloride) 270 mls @ 270 mls/hr IV Q24H [facility] Metoprolol Tartrate (Metoprolol Tartrate 25 Mg Tablet) 25 mg PO BID [facility]; Protocol Last Admin: 02/20/22 08:30 Dose: 25 mg Documented By: MIMA Ondansetron HCl (Ondansetron Hcl 4 Mg/2 Ml Vial) 4 mg IVPUSH Q8H PRN PRN Reason: Nausea and Vomiting Pharmacy Consult (Consult Rx Perform Med Rec) 1 each MISCELLANE ONCE PRN PRN Reason: Consult order Pharmacy Consult (Consult Rx Vancomycin Dosing) 1 each MISCELLANE DAILY PRN PRN Reason: Consult order Potassium Chloride (Potassium Chloride Er 20 Meq Tab.Er.Prt) 60 meq PO DAILY [facility] Last Admin: 02/21/22 09:20 Dose: 60 meq Documented By: CHELA Comments: I had scanned the meds and submitted it, but it did not save for some reason. Sertraline HCl (Sertraline Hcl 100 Mg Tablet) 100 mg PO BEDTIME [facility] Last Admin: 02/20/22 20:21 Dose: 100 mg Documented By: CARLOS Sodium Chloride (0.9 % Sodium Chloride Flush 3 Ml Syringe) 3 ml IVFLUSH QSHIFT [facility] Last Admin: 02/21/22 09:20 Dose: 3 ml Documented By: CHELA Comments: scanned, but system didn't save. unknown reason. Tramadol HCl (Tramadol Hcl 50 Mg Tablet) 25 mg PO Q6H PRN PRN Reason: Pain, Moderate (Pain Scale 4-6 Last Admin: 02/21/22 11:16 Dose: 25 mg Documented By: CHELA Warfarin Sodium (Warfarin Sodium 1 Mg Tablet) 1 mg PO MOTUWETHFR@1800 [facility] Last Admin: 02/20/22 20:21 Dose: 1 mg Warfarin Sodium (Warfarin Sodium 2 Mg Tablet) 2 mg PO SUSA@1800 [facility] Labs CBC & Chem 7: 02/19/22 11:41 02/21/22 06:02 Labs: Laboratory Results - last 24 hr 02/21/22 02/21/22 06:02 09:05 PT 26.1 H INR 2.2 H Anion Gap 13 Estim Creat Clear Calc 52.1 Estimated GFR 57 Random Glucose 91 Calcium 8.1 L D Microbiology Microbiology Results: Microbiology 02/19/22 18:54 Urine Culture - Final Urine clean catch - Urine cardona top 02/20/22 05:43 Blood Culture - Preliminary Blood - Venous Prelim: GPC Gram Stain only 02/20/22 05:43 Blood Culture - Preliminary Blood - Venous Prelim: GPC Gram Stain only Assessment and Plan (1) Acute hypokalemia: Status: Acute (2) Gram-positive bacteremia: Status: Acute Plan This is a 81 year old female with a PMH of A. fib (presumed persistent), chronic CHF (no recent echo in system), anxiety who presented to [facility] [place] on 02/19/22 initially for psychosocial reasons. She was initially a case mgmt consult for placement but she has become increasing hypotensive with a positive UA. Hence, she will be admitted for further care. gram-positive cocci bacteremia empiric dose of vanco given no skin infection seen; cxr showing opacity at left lung base, pt asymptomatic - will obtain chest CT for further characterization - echo pending - ID consult pending Hypotension asymptomatic and improving suspected hypovoluemia and not due to severe sepsis/septic shock BP improving UTI UA positive and symptoms of incontinence urine culture-mixed bacterial carlos a characteristic of contamination - d/c ceftriaxone A. Fib (presumed persistent) continue coumadin -- INR daily hold metoprolol in light of her hyoptension - resume SBP about if RVR, may need dig / cardiology consult Chronic CHF, unspecified hold bumex- resume as BP allows monitor respiratory status Mood continue baseline meds HypoK/hypoMg repleted and improved monitor daily continue baseline potassium Full Code DVT pptx - coumadin Endorses her daughter as her HCP. attending - dr. romero requires ongoing inpatient hospitalization due to Gram-positive bacteremia and management for the same Quality Stroke Does the patient have a stroke diagnosis?: No VTE Prior VTE?: No VTE Risk Level:: Medical - moderate - high VTE Device Contraindication: Treatment Not Indicated VTE Drug Contraindication: Treatment Not Indicated
--- NOTE | 2022-02-21 13:03 | CA_ITS ---
Transthoracic Echocardiogram Patient (Last, First, Middle): Tobias Anguiano, Gender: Female Date of : 1940 Age: 81 Procedure Date: 02/21/2022 Procedure Type: Transthoracic Echocardiogram Location: ER Height: 167.64 cm Weight: 81.19 kg BSA: 1.91 m2 Heart Rate: 119 bpm BP: 101 / 58 mmHg Counterintelligence Agent: SB Referring MD: Alexandria SOSA Symptoms: gram + bacteremia Study Quality: Adequate ECG Rhythm: Atrial Fibrillation Conclusions: - Normal left ventricular size and systolic function. There is mildly increased left ventricular wall thickness. The visually estimated ejection fraction is between 60-65%. - Normal right ventricular cavity size and systolic function. - The left atrium is severely dilated. The right atrium is mildly dilated. Findings Left Ventricle Normal left ventricular size and systolic function. There is mildly increased left ventricular wall thickness. The visually estimated ejection fraction is between 60-65%. There is no evidence of regional wall motion abnormalities. Diastolic function is indeterminate on the basis of available data. There is severe septal asymmetric hypertrophy. Right Ventricle Normal right ventricular cavity size and systolic function. Atria The left atrium is severely dilated. The right atrium is mildly dilated. Aortic Valve The aortic valve was not well visualized. There is no aortic valve stenosis. There is no aortic valve regurgitation. Mitral Valve Normal mitral valve structure and function. There is trace mitral valve regurgitation. There is no mitral valve stenosis. Pulmonic Valve The pulmonic valve is likely normal. Tricuspid Valve Likely normal tricuspid valve structure and function. Normal right atrial pressure. There is no evidence of pulmonary hypertension. Great Vessels There is mild dilatation of the ascending aorta measuring 3.60 cm. Venous The inferior vena cava is normal in size and collapses greater than 50% with inspiration. Pericardium/Pleural There is no evidence of pericardial effusion. Prior Study Comparison No prior study available for comparison. Measurements 2D Linear Measurements IVSd: 1.43 0.6-0.9/0.6-1.0 cm LVIDd: 4.28 3.9-5.3/4.2-5.9 cm LVIDd Index: 2.24 2.4-3.2/2.2-3.1 cm/m2 LVIDs: 2.28 2.0-3.6 cm LVPWd: 0.96 0.7-1.1 cm LA Diam: 5.10 2.7-3.8/3.0-4.0 cm LAIDs Index: 2.67 1.5-2.3 cm/m2 LV Mass: 227.63 67-162/88-224 g LV Mass Index: 119.18 43-95/49-115 g/m2 LVOT Diam: 2.10 3.0+(-)1.3 cm 2D Systolic Function EF 4C: 67.70 >55% EF 2C: 58.00 >55% EF BiP: 63.60 >55% Mitral Valve MV Pk E: 0.91 Aortic Valve AoV Pk Kota: 1.27 AoV Mn Kota: 0.88 AoV VTI: 0.19 AoV Pk Grad: 6.00 Aov Mn Grad: 4.00 ARTHUR Cont.VTI: 2.81 LVOT LVOT Pk Kota: 0.93 LVOT Mn Kota: 0.59 LVOT VTI: 0.15 LVOT Pk Grad: 3.00 LVOT Mn Grad: 2.00 LVOT Diam: 2.10 LVOT Area: 3.46 Diastolic Function MV Pk E: 0.91 Right Ventricle TAPSE (mm): 7.00 TVS' Kota: 6.40 Tricuspid Valve TR Pk Kota: 2.89 TR Pk Grad: 33.00 RA Press: 3.00 RVSP: 36.00 Great Vessels Aorta Sinus of Valsalva: 3.10 2.0-3.5 cm Ao Asc: 3.60 2.1-3.4 cm Pulmonary Valve PV Pk Kota: 0.93 Peak PV Grad: 3.00 Updated in Other Vendor System with Status of Final Dougie Mckeon MD electronically signed on 02/22/2022 11:26:13 PM with status of Final
--- NOTE | 2022-02-21 15:47 | MHC.CM.PN ---
Received call from pt's dtr, Haley. Updated her on d/c plans for pt including + blood cx results, PT eval and barriers to placement. Prior to [facility] admission, pt resided with dtr who served as her primary career advisor 26/01 - not compensated. Pt remained in bed and was incontinent x 2 d/t inability to use a bedpan. Conversation was extremely difficult d/t Haley's extremes in behavior. When hearing information that she found upsetting, she would yell, become paranoid (stated this CM was conspiring with [facility] to refuse rehab for pt) and threatening to pursue litigation. At other times, she was apologetic and understanding. Conversation had to be continuously redirected to focus on the pt's needs and barriers and not Haley's. Haley states she cannot care for pt at home and cannot afford private care services. She said she would not provide incontinence care or use a desi to transfer pt. She needs to be in a assisted, what more can I tell you! She had [facility] and [facility] in the past but states she refused services for various reasons including concerns of safety and theft. Haley informs CM that pt has 2 sons - one is estranged and the other is useless Haley admits to a restraining order against her father (pt's spouse) who is presently in a SNF. She is d/t return to court for a continuance soon. Haley states she is willing to assist [facility] financial with documents to [facility]. She understands that a SNF search may need to broaden to include [place] and [facility] or out of state. Pt is also aware of this d/t current barriers. Pt continues to meet INPT LOC at this time and efforts for placement are ongoing. No offers for SNF as of this note. Clinical updated to show + Blood CX. CM to follow.
--- NOTE | 2022-02-21 16:19 | PC.NURSE ---
PATIENT WAS HELP TO BEDPAN ,BUT DID NOT DO ANYTHING .
--- NOTE | 2022-02-21 16:53 | P.CNID_ITS ---
History of Present Illness Data of Consult Service Date: 02/21/22 Requesting physician: Alexandria Grigsby Primary Care Provider: Unknown Physician HPI Reason for consult: bacteremia She presents to hospital with fatigue and chills. She has gram positive cocci. There is LLL infiltrates. Review of Systems Review of Systems: Yes all other systems are reviewed and are negative PMFSH Past Medical History Medical History Afib Anxiety CHF (congestive heart failure) Family History Family history: reviewed and not pertinent Surgical History Surgical History H/O hernia repair History of orthopedic surgery Social History Social History Alcohol intake: never Patient Tobacco Use Status: Never used Tobacco Use of substances other than those prescribed or required for medical reasons: No Advance Directives: No Advance Directives Information Provided: Yes service: No Current occupational status: retired [employer] Allergies Allergy/AdvReac Type Severity Reaction Status Date / Time No Known Allergies Allergy Unverified 03/22/20 19:41 [No Known Allergies*] Active Medications: Current Medications Acetaminophen (Acetaminophen 325 Mg Tablet) 650 mg PO Q6H PRN PRN Reason: Pain, Mild (Pain Scale 1-3) Last Admin: 02/21/22 15:41 Dose: 650 mg Bumetanide (Bumetanide 1 Mg Tablet) 3 mg PO BID [facility]; Protocol Last Admin: 02/20/22 08:29 Dose: 3 mg Vancomycin HCl 1,000 mg/ (Sodium Chloride) 270 mls @ 270 mls/hr IV Q24H [facility] Metoprolol Tartrate (Metoprolol Tartrate 25 Mg Tablet) 25 mg PO BID [facility]; Protocol Last Admin: 02/20/22 08:30 Dose: 25 mg Ondansetron HCl (Ondansetron Hcl 4 Mg/2 Ml Vial) 4 mg IVPUSH Q8H PRN PRN Reason: Nausea and Vomiting Pharmacy Consult (Consult Rx Perform Med Rec) 1 each MISCELLANE ONCE PRN PRN Reason: Consult order Pharmacy Consult (Consult Rx Vancomycin Dosing) 1 each MISCELLANE DAILY PRN PRN Reason: Consult order Potassium Chloride (Potassium Chloride Er 20 Meq Tab.Er.Prt) 60 meq PO DAILY [facility] Last Admin: 02/21/22 09:20 Dose: 60 meq Sertraline HCl (Sertraline Hcl 100 Mg Tablet) 100 mg PO BEDTIME [facility] Last Admin: 02/20/22 20:21 Dose: 100 mg Sodium Chloride (0.9 % Sodium Chloride Flush 3 Ml Syringe) 3 ml IVFLUSH QSHIFT [facility] Last Admin: 02/21/22 15:35 Dose: Not Given Tramadol HCl (Tramadol Hcl 50 Mg Tablet) 25 mg PO Q6H PRN PRN Reason: Pain, Moderate (Pain Scale 4-6 Last Admin: 02/21/22 11:16 Dose: 25 mg Warfarin Sodium (Warfarin Sodium 1 Mg Tablet) 1 mg PO MOTUWETHFR@1800 [facility] Last Admin: 02/20/22 20:21 Dose: 1 mg Warfarin Sodium (Warfarin Sodium 2 Mg Tablet) 2 mg PO SUSA@1800 [facility] Home Medications Medication Instructions Recorded Confirmed Last Taken Type bumetanide 1 mg tablet 3 mg PO BID 11/16/20 02/19/22 02/18/22 History metoprolol tartrate 25 mg tablet 25 mg PO BID 11/16/20 02/19/22 02/18/22 History potassium chloride 20 mEq 3 tab PO DAILY 11/16/20 02/19/22 02/18/22 History tablet,extended release(part/cryst) sertraline 100 mg tablet 1 tab PO BEDTIME 11/16/20 02/19/22 02/18/22 History warfarin 1 mg tablet 1 mg PO MOTUWETHFR@1800 11/16/20 02/19/22 02/18/22 History acetaminophen 325 mg tablet 650 mg PO Q6H PRN Pain 02/19/22 02/19/22 Unknown History (Tylenol) cranberry fruit concentrate 250 mg 250 mg PO TID 02/19/22 02/19/22 Unknown History chewable tablet (Azo Cranberry) loperamide 2 mg tablet 2 mg PO Q6H PRN Diarrhea 02/19/22 02/19/22 Unknown History warfarin 1 mg tablet 2 mg PO SUSA@1800 02/19/22 02/19/22 02/16/22 History Physical Exam Vital Signs: Vital Signs: Last Vital Signs Temp 97.6 F 02/21/22 16:00 Pulse 104 H 02/21/22 16:00 Resp 16 02/21/22 16:00 BP 105/58 L 02/21/22 16:00 Pulse Ox 96 02/21/22 16:00 O2 Del Method 02/21/22 16:00 BMI result Body Mass Index 28.9 Const: General: cooperative HEENT: Head: Yes normal to inspection Face and sinus: Yes normal facial exam Mouth: Normal oral and palatal mucosa present Teeth and gingiva: dentition normal Eyes: General: appearance normal, both eyes and all related structures Pupils: Equal, round and reactive pupils present Resp: Other: decreased respiratory effort Effort & Inspection: normal respiratory effort Cardio: Rate: regular rate Rhythm: regular rhythm GI: Palpation (GI): Soft to palpation and nontender : General: Yes no CVA tenderness Back/Spine/Pelvis: Back: no CVA tenderness Skin: General skin exam: no rashes or lesions noted Neuro: General: moves all extremities Cranial nerves: Yes Equal, round and reactive pupils present Extrem: General: Yes normal to inspection Psych: Appearance: grossly normal Results Labs CBC & Chem 7: 02/19/22 11:41 02/21/22 06:02 Labs: BMP 02/21/22 06:02 Sodium 144 Potassium 4.2 Chloride 104 Carbon Dioxide 31 H BUN 20 H Creatinine 0.94 Calcium 8.1 L D Microbiology Microbiology Results: Microbiology 02/19/22 18:54 Urine clean catch - Urine cardona top Urine Culture - Final 02/20/22 05:43 Blood - Venous Blood Culture - Preliminary Prelim: GPC Gram Stain only 02/20/22 05:43 Blood - Venous Blood Culture - Preliminary Prelim: GPC Gram Stain only Assessment and Plan (1) Gram-positive bacteremia: Status: Acute She has lung probable source. (2) Anxiety: Status: Acute Plan Continue current antibiotics Await cultures.
[2022-02-21] MEDS: Warfarin Sodium 1 MG TABLET PO (18:04)
[2022-02-21] MEDS: Sertraline HCL 100 MG TABLET PO (20:13)
[2022-02-22 03:47] VITALS: BP 92/56; PULSE 100; RESP 20; TEMP 36.7; O2SAT 97
[2022-02-22 06:57] LABS: INTERNATIONAL NORM RATIO 1.7 (0.9-1.1)
[2022-02-22 07:11] LABS: Creatinine Clr Calc Pharmacy 61.3; Estimated Glomerular Filt Rate > 60
[2022-02-22 07:15] VITALS: BP 125/66; PULSE 101; RESP 20; TEMP 37; O2SAT 93
--- NOTE | 2022-02-22 08:05 | HE.PHANOTE ---
PT cr improved, 1gm q24 provides therapeutic auc of 424 and trough of 11.3
[2022-02-22] MEDS: traMADoL HCL 50 MG TABLET 25 MG PO ×2 (09:14→15:07)
[2022-02-22] MEDS: 0.9 % Sodium Chloride Flush 3 ML SYRINGE IVFLUSH ×3 (09:14→20:06)
[2022-02-22] MEDS: Potassium Chloride ER 20 MEQ TAB.ER.PRT 60 MEQ PO (09:15)
[2022-02-22 12:00] VITALS: BP 117/68; PULSE 100; RESP 20; TEMP 37; O2SAT 95
--- NOTE | 2022-02-22 12:09 | ECG_ITS ---
Test Reason : cp Blood Pressure : / mmHG Vent. Rate : 109 BPM Atrial Rate : 000 BPM P-R Int : 000 ms QRS Dur : 140 ms QT Int : 382 ms P-R-T Axes : 000 078 022 degrees QTc Int : 514 ms Atrial fibrillation with rapid ventricular response Right bundle branch block Abnormal ECG When compared with ECG of 19-FEB-2022 13:22, QRS duration has decreased Referred By: Ann-Marie Henderson Electronically Signed By:HERI MOORE
[2022-02-22] MEDS: vancomycin HCL 1,000 MG in 0.9 % Sodium Chloride 250 ML 270 MG IV (12:34)
[2022-02-22] MEDS: Acetaminophen 325 MG TABLET 650 MG PO (15:08)
--- NOTE | 2022-02-22 15:15 | P.PNIM_ITS ---
Subjective Subjective Date of Service: 02/22/22 Review of Systems Follow up Gram pos bacteremia Pain in back and left leg denies chest pain, sob, cough Physical Exam Vital Signs: Vital Signs: Last Vital Signs Temp 98.6 F 02/22/22 12:00 Pulse 100 02/22/22 12:00 Resp 20 02/22/22 12:00 BP 117/68 02/22/22 12:00 Pulse Ox 95 02/22/22 12:00 O2 Del Method 02/22/22 12:00 FiO2 99 02/22/22 03:47 BMI result Body Mass Index 28.9 Appearing in no acute distress lung sounds are clear to auscultation heart regular rate rhythm, clear S1, S2 positive bowel sounds, abdomen is soft, nontender neuro patient is alert x3, no focal deficits contracted LE limbs Objective Data Active Medications Acetaminophen (Acetaminophen 325 Mg Tablet) 650 mg PO Q6H PRN PRN Reason: Pain, Mild (Pain Scale 1-3) Last Admin: 02/21/22 22:27 Dose: 650 mg Documented By: MAJO Bumetanide (Bumetanide 1 Mg Tablet) 3 mg PO BID [facility]; Protocol Last Admin: 02/20/22 08:29 Dose: 3 mg Documented By: MIMA Vancomycin HCl 1,000 mg/ (Sodium Chloride) 270 mls @ 270 mls/hr IV Q24H [facility] Last Infusion: 02/22/22 14:22 Dose: 0 mls/hr Documented By: RON Metoprolol Tartrate (Metoprolol Tartrate 25 Mg Tablet) 25 mg PO BID [facility]; Protocol Last Admin: 02/20/22 08:30 Dose: 25 mg Documented By: MIMA Ondansetron HCl (Ondansetron Hcl 4 Mg/2 Ml Vial) 4 mg IVPUSH Q8H PRN PRN Reason: Nausea and Vomiting Pharmacy Consult (Consult Rx Perform Med Rec) 1 each MISCELLANE ONCE PRN PRN Reason: Consult order Pharmacy Consult (Consult Rx Vancomycin Dosing) 1 each MISCELLANE DAILY PRN PRN Reason: Consult order Potassium Chloride (Potassium Chloride Er 20 Meq Tab.Er.Prt) 60 meq PO DAILY [facility] Last Admin: 02/22/22 09:15 Dose: 60 meq Documented By: SANDRA Sertraline HCl (Sertraline Hcl 100 Mg Tablet) 100 mg PO BEDTIME [facility] Last Admin: 02/21/22 20:13 Dose: 100 mg Documented By: EMILIANO Sodium Chloride (0.9 % Sodium Chloride Flush 3 Ml Syringe) 3 ml IVFLUSH QSHIFT [facility] Last Admin: 02/22/22 09:14 Dose: 3 ml Documented By: SANDRA Tramadol HCl (Tramadol Hcl 50 Mg Tablet) 25 mg PO Q6H PRN PRN Reason: Pain, Moderate (Pain Scale 4-6 Last Admin: 02/22/22 09:14 Dose: 25 mg Documented By: SANDRA Warfarin Sodium (Warfarin Sodium 1 Mg Tablet) 1 mg PO MOTUWETHFR@1800 [facility] Last Admin: 02/21/22 18:04 Dose: 1 mg Documented By: MICHELLE Warfarin Sodium (Warfarin Sodium 2 Mg Tablet) 2 mg PO SUSA@1800 [facility] Labs CBC & Chem 7: 02/19/22 11:41 02/22/22 06:36 Labs: Laboratory Results - last 24 hr 02/22/22 02/22/22 06:36 06:36 PT 20.0 H INR 1.7 H Estim Creat Clear Calc 61.3 Estimated GFR > 60 Microbiology Microbiology Results: Microbiology 02/21/22 12:42 Blood Culture - Preliminary Blood - Venous No growth after 24 hours. 02/21/22 12:36 Blood Culture - Preliminary Blood - Venous No growth after 24 hours. 02/20/22 05:43 Blood Culture - Preliminary Blood - Venous Staphylococcus species 02/20/22 05:43 Blood Culture - Preliminary Blood - Venous Staphylococcus species Assessment and Plan (1) Acute hypokalemia: Status: Acute (2) Gram-positive bacteremia: Status: Acute Plan This is a 81 year old female with a PMH of A. fib (presumed persistent), chronic CHF (no recent echo in system), anxiety who presented to [facility] ED on 02/19/22 initially for psychosocial reasons. She was initially a case mgmt consult for placement but she has become increasing hypotensive with a positive UA. Hence, she will be admitted for further care. Gram-positive cocci bacteremia/staph species follow final cx continue vancomycin for now no skin infection seen; cxr showing opacity at left lung base, pt asymptomatic - will obtain chest CT for further characterization echo pending ID consult pending Hypotension asymptomatic and improving suspected hypovolemia and not due to severe sepsis/septic shock BP improving UTI UA positive and symptoms of incontinence urine culture-mixed bacterial carlos a characteristic of contamination - d/c ceftriaxone A. Fib (presumed persistent) with RVR HR up and down continue coumadin -- INR daily continue metoprolol may need dig in light of hypotension / cardiology consult Chronic CHF, unspecified hold bumex- resume as BP allows monitor respiratory status Mood continue baseline meds HypoK/hypoMg repleted and improved monitor daily continue baseline potassium Full Code DVT pptx - coumadin attending - dr. Alvarez requires ongoing inpatient hospitalization due to Gram-positive bacteremia and management for the same, pending cx Quality Stroke Does the patient have a stroke diagnosis?: No VTE Prior VTE?: No VTE Risk Level:: Medical - moderate - high VTE Device Contraindication: Treatment Not Indicated VTE Drug Contraindication: Treatment Not Indicated
[2022-02-22 15:20] VITALS: BP 93/65; PULSE 94; RESP 20; TEMP 37.3; O2SAT 93
[2022-02-22] MEDS: Warfarin Sodium 2 MG TABLET PO (17:05)
[2022-02-22] MEDS: HYDROcodone Bit/Acetam 5/325 TABLET 1 TAB PO ×2 (18:34→22:48)
[2022-02-22 18:55] VITALS: BP 101/60; PULSE 112; RESP 20; TEMP 37.6; O2SAT 96
[2022-02-22] MEDS: Metoprolol Tartrate 25 MG TABLET PO (20:06)
[2022-02-22] MEDS: Sertraline HCL 100 MG TABLET PO (20:06)
[2022-02-23] VITALS: BP 155/69; PULSE 70; RESP 20; TEMP 36.6; O2SAT 92
[2022-02-23] MEDS: traMADoL HCL 50 MG TABLET 25 MG PO ×2 (01:00→21:09)
[2022-02-23 03:11] VITALS: BP 166/55; PULSE 83; RESP 20; TEMP 36.9; O2SAT 92
[2022-02-23] MEDS: HYDROcodone Bit/Acetam 5/325 TABLET 1 TAB PO ×4 (06:09→21:11)
[2022-02-23 06:34] LABS: INTERNATIONAL NORM RATIO 1.3 (0.9-1.1); Prothrombin Time 14.9 SEC (10.0-13.1)
[2022-02-23 07:00] LABS: Creatinine Clr Calc Pharmacy 53.3; Estimated Glomerular Filt Rate 59
[2022-02-23] MEDS: Potassium Chloride ER 20 MEQ TAB.ER.PRT 60 MEQ PO (07:33)
[2022-02-23 07:40] VITALS: BP 113/64; PULSE 77; RESP 16; TEMP 36.8; O2SAT 94
[2022-02-23] MEDS: Metoprolol Tartrate 25 MG TABLET PO ×2 (07:41→21:11)
--- NOTE | 2022-02-23 07:57 | HE.PHANOTE ---
Patient cr increased slighlty 0.8->0.92, auc still within range 478, trough tomorrow 02/24@0900
[2022-02-23] MEDS: 0.9 % Sodium Chloride Flush 3 ML SYRINGE IVFLUSH ×3 (09:57→21:12)
--- NOTE | 2022-02-23 11:24 | HO.PM.IMPN ---
Subjective Subjective Date of Service: 02/23/22 Review of Systems Follow up Gram pos bacteremia Pain in back and left leg denies chest pain, sob, cough Physical Exam Vital Signs: Vital Signs: Last Vital Signs Temp 98.3 F 02/23/22 07:40 Pulse 77 02/23/22 07:40 Resp 16 02/23/22 07:40 BP 113/64 02/23/22 07:40 Pulse Ox 94 02/23/22 07:40 O2 Del Method 02/23/22 07:40 FiO2 99 02/22/22 03:47 BMI result Body Mass Index 28.9 Appearing in no acute distress lung sounds are clear to auscultation heart regular rate rhythm, clear S1, S2 positive bowel sounds, abdomen is soft, nontender neuro patient is alert x3, no focal deficits Bilat leg contractures Objective Data Active Medications Acetaminophen (Acetaminophen 325 Mg Tablet) 650 mg PO Q6H PRN PRN Reason: Pain, Mild (Pain Scale 1-3) Last Admin: 02/22/22 15:08 Dose: 650 mg Documented By: RON Hydrocodone Bitart/Acetaminophen (Hydrocodone Bit/Acetam 5/325 Tablet) 1 tab PO Q4H PRN PRN Reason: Pain, Moderate (Pain Scale 4-6 Last Admin: 02/23/22 06:09 Dose: 1 tab Documented By: TIMOTHY Bumetanide (Bumetanide 1 Mg Tablet) 3 mg PO BID [facility]; Protocol Last Admin: 02/20/22 08:29 Dose: 3 mg Documented By: MIMA Vancomycin HCl 1,000 mg/ (Sodium Chloride) 270 mls @ 270 mls/hr IV Q24H [facility] Last Infusion: 02/22/22 14:22 Dose: 0 mls/hr Documented By: RON Metoprolol Tartrate (Metoprolol Tartrate 25 Mg Tablet) 25 mg PO BID [facility]; Protocol Last Admin: 02/23/22 07:41 Dose: 25 mg Documented By: SANDAR Ondansetron HCl (Ondansetron Hcl 4 Mg/2 Ml Vial) 4 mg IVPUSH Q8H PRN PRN Reason: Nausea and Vomiting Pharmacy Consult (Consult Rx Perform Med Rec) 1 each MISCELLANE ONCE PRN PRN Reason: Consult order Pharmacy Consult (Consult Rx Vancomycin Dosing) 1 each MISCELLANE DAILY PRN PRN Reason: Consult order Potassium Chloride (Potassium Chloride Er 20 Meq Tab.Er.Prt) 60 meq PO DAILY [facility] Last Admin: 02/23/22 07:33 Dose: 60 meq Documented By: SANDRA Sertraline HCl (Sertraline Hcl 100 Mg Tablet) 100 mg PO BEDTIME [facility] Last Admin: 02/22/22 20:06 Dose: 100 mg Documented By: CHELLE Sodium Chloride (0.9 % Sodium Chloride Flush 3 Ml Syringe) 3 ml IVFLUSH QSHIFT [facility] Last Admin: 02/23/22 09:57 Dose: 3 ml Documented By: RON Tramadol HCl (Tramadol Hcl 50 Mg Tablet) 25 mg PO Q6H PRN PRN Reason: Pain, Moderate (Pain Scale 4-6 Last Admin: 02/23/22 01:00 Dose: 25 mg Documented By: FABRIZIO Warfarin Sodium (Warfarin Sodium 1 Mg Tablet) 1.5 mg PO MOTUWETHFR@1800 [facility] Warfarin Sodium (Warfarin Sodium 2 Mg Tablet) 2 mg PO SUSA@1800 [facility] Warfarin Sodium (Warfarin Sodium 3 Mg Tablet) 3 mg PO ONCE@1800 ONE Stop: 02/23/22 18:01 Labs CBC & Chem 7: 02/19/22 11:41 02/23/22 06:17 Labs: Laboratory Results - last 24 hr 02/23/22 02/23/22 06:17 06:17 PT 14.9 H INR 1.3 H Estim Creat Clear Calc 53.3 Estimated GFR 59 Microbiology Microbiology Results: Microbiology 02/20/22 05:43 Blood Culture - Final Blood - Venous Coag negative Staphylococcus 02/20/22 05:43 Blood Culture - Final Blood - Venous Coag negative Staphylococcus 02/21/22 12:42 Blood Culture - Preliminary Blood - Venous No growth after 24 hours. 02/21/22 12:36 Blood Culture - Preliminary Blood - Venous No growth after 24 hours. Assessment and Plan (1) Acute hypokalemia: Status: Acute (2) Gram-positive bacteremia: Status: Acute Plan This is a 81 year old female with a PMH of A. fib (presumed persistent), chronic CHF (no recent echo in system), anxiety who presented to [facility] ED on 02/19/22 initially for psychosocial reasons. She was initially a case mgmt consult for placement but she has become increasing hypotensive with a positive UA. Hence, she will be admitted for further care. Gram-positive cocci bacteremia/staph species follow final cx continue vancomycin for now no skin infection seen; cxr showing opacity at left lung base, pt asymptomatic - will obtain chest CT for further characterization echo normal EF, no vegetation ID following Hypotension. Better today asymptomatic and improving suspected hypovolemia and not due to severe sepsis/septic shock UTI UA positive and symptoms of incontinence urine culture-mixed bacterial carlos a characteristic of contamination - d/c ceftriaxone A. Fib (presumed persistent) with RVR HR up and down but better today continue coumadin -- INR daily continue metoprolol may need dig in light of hypotension / cardiology consult Chronic CHF, unspecified hold bumex- resume as BP allows monitor respiratory status Mood continue baseline meds HypoK/hypoMg repleted and improved monitor daily continue baseline potassium Full Code DVT pptx - coumadin attending - dr. Montenegro requires ongoing inpatient hospitalization due to Gram-positive bacteremia and management for the same, pending cx Quality Stroke Does the patient have a stroke diagnosis?: No VTE Prior VTE?: No VTE Risk Level:: Medical - moderate - high VTE Device Contraindication: Treatment Not Indicated VTE Drug Contraindication: Treatment Not Indicated
[2022-02-23 11:49] VITALS: BP 102/58; PULSE 83; RESP 16; TEMP 36.5; O2SAT 95
--- NOTE | 2022-02-23 12:02 | PM.CNCAR ---
History of Present Illness History of Present Illness Date of Service: 02/23/22 Requesting physician: Ann-Marie Henderson Chief complaint: Afib Narrative: 81-year-old female with background history of atrial fibrillation on Coumadin, diastolic heart failure who presented with fevers and chills and has been found to have Gram-positive bacteremia. She also has a left lower lobe infiltrate on x-ray and is being treated for that with antibiotics. Her blood pressures were soft and given atrial fibrillation we were asked to help manage AFib. Patient is denying any palpitations and in fact does not feel when she develops atrial fibrillation. Currently he is unclear whether she has persistent atrial fibrillation or this is paroxysmal. She is saying her breathing is better. Her medications were on hold but her blood pressure is better now and she is receiving beta-tony now. Her Bumex is still on hold currently. INR is 1.3. [facility] Past Medical History Medical History (Updated 02/23/22 @ 12:50 by Dougie Mckeon MD) Afib Anxiety CHF (congestive heart failure) Family History Family history: reviewed and not pertinent Surgical History Surgical History H/O hernia repair History of orthopedic surgery Social History Social History Household Members: Spouse and Children Do you presently have visiting nurse or other home services: No Alcohol intake: never Patient Tobacco Use Status: Never used Tobacco service: No Current occupational status: retired Meds Allergies Allergy/AdvReac Type Severity Reaction Status Date / Time No Known Allergies Allergy Unverified 03/22/20 19:41 [No Known Allergies*] Active Medications: Current Medications Acetaminophen (Acetaminophen 325 Mg Tablet) 650 mg PO Q6H PRN PRN Reason: Pain, Mild (Pain Scale 1-3) Last Admin: 02/22/22 15:08 Dose: 650 mg Hydrocodone Bitart/Acetaminophen (Hydrocodone Bit/Acetam 5/325 Tablet) 1 tab PO Q4H PRN PRN Reason: Pain, Moderate (Pain Scale 4-6 Last Admin: 02/23/22 06:09 Dose: 1 tab Bumetanide (Bumetanide 1 Mg Tablet) 3 mg PO BID [facility]; Protocol Last Admin: 02/20/22 08:29 Dose: 3 mg Vancomycin HCl 1,000 mg/ (Sodium Chloride) 270 mls @ 270 mls/hr IV Q24H [facility] Last Infusion: 02/22/22 14:22 Dose: Infused Metoprolol Tartrate (Metoprolol Tartrate 25 Mg Tablet) 25 mg PO BID [facility]; Protocol Last Admin: 02/23/22 07:41 Dose: 25 mg Ondansetron HCl (Ondansetron Hcl 4 Mg/2 Ml Vial) 4 mg IVPUSH Q8H PRN PRN Reason: Nausea and Vomiting Pharmacy Consult (Consult Rx Perform Med Rec) 1 each MISCELLANE ONCE PRN PRN Reason: Consult order Pharmacy Consult (Consult Rx Vancomycin Dosing) 1 each MISCELLANE DAILY PRN PRN Reason: Consult order Potassium Chloride (Potassium Chloride Er 20 Meq Tab.Er.Prt) 60 meq PO DAILY [facility] Last Admin: 02/23/22 07:33 Dose: 60 meq Sertraline HCl (Sertraline Hcl 100 Mg Tablet) 100 mg PO BEDTIME [facility] Last Admin: 02/22/22 20:06 Dose: 100 mg Sodium Chloride (0.9 % Sodium Chloride Flush 3 Ml Syringe) 3 ml IVFLUSH QSHIFT [facility] Last Admin: 02/23/22 09:57 Dose: 3 ml Tramadol HCl (Tramadol Hcl 50 Mg Tablet) 25 mg PO Q6H PRN PRN Reason: Pain, Moderate (Pain Scale 4-6 Last Admin: 02/23/22 01:00 Dose: 25 mg Warfarin Sodium (Warfarin Sodium 1 Mg Tablet) 1.5 mg PO MOTUWETHFR@1800 [facility] Warfarin Sodium (Warfarin Sodium 2 Mg Tablet) 2 mg PO SUSA@1800 [facility] Warfarin Sodium (Warfarin Sodium 3 Mg Tablet) 3 mg PO ONCE@1800 ONE Stop: 02/23/22 18:01 Home Medications Medication Instructions Recorded Confirmed Last Taken Type bumetanide 1 mg tablet 3 mg PO BID 11/16/20 02/19/22 02/18/22 History metoprolol tartrate 25 mg tablet 25 mg PO BID 11/16/20 02/19/22 02/18/22 History potassium chloride 20 mEq 3 tab PO DAILY 11/16/20 02/19/22 02/18/22 History tablet,extended release(part/cryst) sertraline 100 mg tablet 1 tab PO BEDTIME 11/16/20 02/19/22 02/18/22 History warfarin 1 mg tablet 1 mg PO MOTUWETHFR@1800 11/16/20 02/19/22 02/18/22 History acetaminophen 325 mg tablet 650 mg PO Q6H PRN Pain 02/19/22 02/19/22 Unknown History (Tylenol) cranberry fruit concentrate 250 mg 250 mg PO TID 02/19/22 02/19/22 Unknown History chewable tablet (Azo Cranberry) loperamide 2 mg tablet 2 mg PO Q6H PRN Diarrhea 02/19/22 02/19/22 Unknown History warfarin 1 mg tablet 2 mg PO SUSA@1800 02/19/22 02/19/22 02/16/22 History Physical Exam Vital Signs: Vital Signs: Last Vital Signs Temp 97.7 F 02/23/22 11:49 Pulse 83 02/23/22 11:49 Resp 16 02/23/22 11:49 BP 102/58 L 02/23/22 11:49 Pulse Ox 95 02/23/22 11:49 O2 Del Method 02/23/22 11:49 FiO2 99 02/22/22 03:47 BMI result Body Mass Index 28.9 GENERAL APPEARANCE: in no acute distress, significant joint deformities due to psoriatic arthritis. NECK: no carotid bruit, while jugular venous distention. SKIN: no suspicious lesions, warm and dry. HEART: no murmurs, irregularly irregular rhythm. LUNGS: clear to auscultation anteriorly. ABDOMEN: soft, nontender. EXTREMITIES: no edema. PERIPHERAL PULSES: equal. NEUROLOGIC: No gross deficits, AAO X 3 Objective Labs and Meds Result diagrams: 02/19/22 11:41 02/23/22 06:17 Lab results: Laboratory Results - last 24 hr 02/23/22 02/23/22 06:17 06:17 PT 14.9 H INR 1.3 H Creatinine 0.92 Estim Creat Clear Calc 53.3 Estimated GFR 59 Assessment and Plan (1) Gram-positive bacteremia: Status: Acute (2) Afib: Status: Acute (3) Chronic heart failure: Status: Acute Plan Pleasant 81 year female who has chronic diastolic heart failure, atrial fibrillation and psoriatic arthritis. She is presenting for fevers and Gram-positive organism in her blood. She is on antibiotics appropriately. There is a left lower lobe infiltrate. She was hypotensive due to sepsis. With antibiotics her blood pressure is improving. Agree with resuming beta-tony. She has mild JVD and I think Bumex can be resumed at a little lower dose of 2 mg twice a day. Overall does not look in overt heart failure currently but would need close monitoring given sepsis and risk of decompensation. Heart rate is well controlled with blockers currently. No further changes in medication required. Thank you for allowing me to participate in the care of your patient. Please feel free to contact me if you have any questions. Procedures Date of Service Date of Service: 02/23/22
[2022-02-23] MEDS: vancomycin HCL 1,000 MG in 0.9 % Sodium Chloride 250 ML 270 MG IV (12:17)
[2022-02-23 16:00] VITALS: BP 112/72; PULSE 88; RESP 16; TEMP 36.8; O2SAT 93
[2022-02-23] MEDS: Warfarin Sodium 3 MG TABLET PO (16:45)
[2022-02-23] MEDS: Sertraline HCL 100 MG TABLET PO (21:09)
[2022-02-23 23:09] VITALS: BP 123/81; PULSE 81; RESP 18; TEMP 36.8; O2SAT 95
[2022-02-24] MEDS: HYDROcodone Bit/Acetam 5/325 TABLET 1 TAB PO ×3 (01:00→10:57)
[2022-02-24 03:45] VITALS: BP 132/67; PULSE 78; RESP 20; TEMP 36.5; O2SAT 92
[2022-02-24 07:37] LABS: Estimated Glomerular Filt Rate 55
[2022-02-24 07:39] LABS: INTERNATIONAL NORM RATIO 1.3 (0.9-1.1); Prothrombin Time 15.1 SEC (10.0-13.1)
[2022-02-24 08:00] VITALS: BP 92/59; PULSE 93; RESP 20; TEMP 36.4; O2SAT 93
[2022-02-24] MEDS: traMADoL HCL 50 MG TABLET 25 MG PO ×2 (09:03→15:28)
[2022-02-24] MEDS: Potassium Chloride ER 20 MEQ TAB.ER.PRT 60 MEQ PO (09:04)
[2022-02-24] MEDS: 0.9 % Sodium Chloride Flush 3 ML SYRINGE IVFLUSH ×3 (09:05→21:02)
[2022-02-24] MEDS: Metoprolol Tartrate 25 MG TABLET PO ×2 (09:05→20:59)
[2022-02-24] MEDS: Bumetanide 1 MG TABLET 2 MG PO ×2 (09:09→21:00)
--- NOTE | 2022-02-24 10:06 | P.PNIM_ITS ---
Subjective Subjective Date of Service: 02/24/22 Review of Systems Follow up Gram pos bacteremia/coag neg staph Pain in back and left leg denies chest pain, sob, cough Physical Exam Vital Signs: Vital Signs: Last Vital Signs Temp 97.5 F 02/24/22 08:00 Pulse 93 02/24/22 08:00 Resp 20 02/24/22 08:00 BP 92/59 L 02/24/22 08:00 Pulse Ox 93 02/24/22 08:00 O2 Del Method 02/24/22 08:00 FiO2 99 02/22/22 03:47 BMI result Body Mass Index 28.9 Appearing in no acute distress lung sounds are clear to auscultation heart regular rate rhythm, clear S1, S2 positive bowel sounds, abdomen is soft, nontender neuro patient is alert x3, no focal deficits MSK contractures to LE Objective Data Active Medications Acetaminophen (Acetaminophen 325 Mg Tablet) 650 mg PO Q6H PRN PRN Reason: Pain, Mild (Pain Scale 1-3) Last Admin: 02/22/22 15:08 Dose: 650 mg Documented By: RON Hydrocodone Bitart/Acetaminophen (Hydrocodone Bit/Acetam 5/325 Tablet) 1 tab PO Q4H PRN PRN Reason: Pain, Moderate (Pain Scale 4-6 Last Admin: 02/24/22 05:35 Dose: 1 tab Documented By: MARANDA Bumetanide (Bumetanide 1 Mg Tablet) 2 mg PO BID [facility]; Protocol Last Admin: 02/24/22 09:09 Dose: 2 mg Documented By: MICHELLE Comments: recheck BP 114/69 Metoprolol Tartrate (Metoprolol Tartrate 25 Mg Tablet) 25 mg PO BID [facility]; Protocol Last Admin: 02/24/22 09:05 Dose: 25 mg Documented By: MICHELLE Ondansetron HCl (Ondansetron Hcl 4 Mg/2 Ml Vial) 4 mg IVPUSH Q8H PRN PRN Reason: Nausea and Vomiting Pharmacy Consult (Consult Rx Perform Med Rec) 1 each MISCELLANE ONCE PRN PRN Reason: Consult order Pharmacy Consult (Consult Rx Vancomycin Dosing) 1 each MISCELLANE DAILY PRN PRN Reason: Consult order Potassium Chloride (Potassium Chloride Er 20 Meq Tab.Er.Prt) 60 meq PO DAILY [facility] Last Admin: 02/24/22 09:04 Dose: 60 meq Documented By: MICHELLE Sertraline HCl (Sertraline Hcl 100 Mg Tablet) 100 mg PO BEDTIME [facility] Last Admin: 02/23/22 21:09 Dose: 100 mg Documented By: MARANDA Sodium Chloride (0.9 % Sodium Chloride Flush 3 Ml Syringe) 3 ml IVFLUSH QSHIFT [facility] Last Admin: 02/24/22 09:05 Dose: 3 ml Documented By: MICHELLE Tramadol HCl (Tramadol Hcl 50 Mg Tablet) 25 mg PO Q6H PRN PRN Reason: Pain, Moderate (Pain Scale 4-6 Last Admin: 02/24/22 09:03 Dose: 25 mg Documented By: MICHELLE Warfarin Sodium (Warfarin Sodium 1 Mg Tablet) 1.5 mg PO MOTUWETHFR@1800 [facility] Warfarin Sodium (Warfarin Sodium 2 Mg Tablet) 2 mg PO SUSA@1800 [facility] Labs CBC & Chem 7: 02/19/22 11:41 02/24/22 06:48 Labs: Laboratory Results - last 24 hr 02/24/22 02/24/22 06:48 06:48 PT 15.1 H INR 1.3 H Estim Creat Clear Calc 50.0 Estimated GFR 55 Microbiology Microbiology Results: Microbiology 02/21/22 12:42 Blood Culture - Preliminary Blood - Venous No growth after 48 hours. 02/21/22 12:36 Blood Culture - Preliminary Blood - Venous No growth after 48 hours. 02/20/22 05:43 Blood Culture - Final Blood - Venous Coag negative Staphylococcus 02/20/22 05:43 Blood Culture - Final Blood - Venous Coag negative Staphylococcus Assessment and Plan (1) Acute hypokalemia: Status: Acute (2) Gram-positive bacteremia: Status: Acute Plan This is a 81 year old female with a PMH of A. fib (presumed persistent), chronic CHF (no recent echo in system), anxiety who presented to [facility] on 02/19/22 initially for psychosocial reasons. She was initially a case mgmt consult for placement but she has become increasing hypotensive with a positive UA. Hence, she will be admitted for further care. Coag negative staph stop vancomycin no skin infection seen; cxr showing opacity at left lung base, pt asymptomatic echo normal EF, no vegetation ID following Hypotension. Better today asymptomatic and improving suspected hypovolemia and not due to severe sepsis/septic shock UTI UA positive and symptoms of incontinence urine culture-mixed bacterial carlos a characteristic of contamination - d/c ceftriaxone subtherapeutic INR 1.3 Increase warfarin Follow-up PT INR daily A. Fib (presumed persistent) with RVR HR up and down but better today continue coumadin -- INR daily continue metoprolol may need dig in light of hypotension / cardiology consult Chronic HFpEF, unspecified no exacerbation bumex resumed, blood pressure more stable Mood continue baseline meds HypoK/hypoMg repleted and improved monitor daily continue baseline potassium Full Code DVT pptx - coumadin attending - Dr. Grayson DISPO PT rec LTC as patient is unable to participate in PT (she is bedbound). [facility], Daughter is stating that she is unable to care for her at home and patient is unable to care for herself requires ongoing inpatient hospitalization due to Gram-positive bacteremia and management for the same, pending cx and safe discharge Quality Stroke Does the patient have a stroke diagnosis?: No VTE Prior VTE?: No VTE Risk Level:: Medical - moderate - high VTE Device Contraindication: Treatment Not Indicated VTE Drug Contraindication: Treatment Not Indicated
[2022-02-24 11:29] VITALS: BP 90/58; PULSE 92; RESP 20; TEMP 36.7; O2SAT 92
--- NOTE | 2022-02-24 11:59 | MHC.CM.PN ---
Per ROUNDS discussion, Patient is medically cleared for dc to SNF/LTC(PT'S RECOMMENDATION). Per Financial/Brandi, she awaits a return call from Daughter/HCP/Haley @ [phone] to assist her complete the LTC/[facility] that will be needed before Patient can dc to LTC. CM will follow.
[2022-02-24] MEDS: Acetaminophen 325 MG TABLET 650 MG PO (13:27)
--- NOTE | 2022-02-24 13:41 | MHC.CLN ---
NUTRITION DIET CHANGED FROM REGULAR TO CARDIAC. PATIENT WITH HX CHF AND TAKES BUMEX. STAGE II WOULD TO LEFT BUTTOCK. ADDING ENSURE BID TO PROMOTE WOUND HEALING. PROVIDES ADDITIONAL 700 KCALS, 40 G PROTEIN.
[2022-02-24 13:44] VITALS: BMI 28.9
[2022-02-24 15:15] VITALS: BP 103/49; PULSE 78; RESP 18; TEMP 36.7; O2SAT 97
[2022-02-24 16:12] LABS: Glucose, Whole Blood 86 mg/dL (60-115)
[2022-02-24] MEDS: Warfarin Sodium 2 MG TABLET PO (17:57)
[2022-02-24] MEDS: LORazepam 0.5 MG TABLET 0.25 MG PO (17:57)
[2022-02-24] MEDS: oxyCODONE HCl Immed Release 5 MG TABLET PO (17:59)
[2022-02-24 20:00] VITALS: BP 119/70; PULSE 79; RESP 18; TEMP 36.4; O2SAT 94
[2022-02-24] MEDS: Sertraline HCL 100 MG TABLET PO (20:59)
[2022-02-25] MEDS: LORazepam 0.5 MG TABLET 0.25 MG PO ×3 (01:40→22:11)
[2022-02-25] MEDS: oxyCODONE HCl Immed Release 5 MG TABLET PO ×3 (01:41→22:12)
[2022-02-25 03:57] VITALS: BP 95/53; PULSE 88; RESP 20; TEMP 36.6; O2SAT 95
--- NOTE | 2022-02-25 07:03 | P.CDIC_ITS ---
CDI Concurrent Query Documentation Clarification: PHYSICIAN'S DOCUMENTATION REQUEST Date of Query: 02/25/22 0704 Patient Name: Tobias Anguiano Admit Date: 02/20/22 Dear Doctor, A review of the medical record indicates additional documentation may be needed. Please review below and update the documentation accordingly. Clinical Indicators: The following diagnoses or signs and symptoms were noted in the patient record: Risk Factors/Clinical Indicators/Treatments per MD note 02/24/22: patient is unable to participate in PT (she is bedbound) contractures to LE per nursing flow sheets, requires total ADL assist PT recommendation is for LTC Which, if any, of the following is a likely etiology of the above abnormalities and treatment rendered: * Functional quadriplegia (complete immobility due to severe physical disability or [id number] cause) * Age related weakness or frailty - without complete immobility * Generalized weakness - indicate known or suspected etiology * Other etiology ? please specify * Unable to determine Use of terms such as suspected, likely, concern for, or probable (associated with a specific diagnosis that is being evaluated, monitored, or treated as if it exists) are acceptable and can be coded in the inpatient setting, when documented at the time of discharge. Thank you, Sania Dash RN Extension: [phone] Please use your independent medical judgment in providing your response. THIS QUERY IS PART OF THE PERMANENT MEDICAL RECORD Other Diagnosis: Other
--- NOTE | 2022-02-25 07:14 | P.CDIC_ITS ---
CDI Concurrent Query Documentation Clarification: PHYSICIAN'S DOCUMENTATION REQUEST Date of Query: 02/25/22 0715 Patient Name: Tobias Anguiano Admit Date: 02/20/22 Dear Doctor, A review of the medical record indicates additional documentation may be indicated. Please review below and update the documentation accordingly. Clinical Indicators: Risk Factors/Clinical Indicators/Treatments Per nursing wound assessment 02/22/22 -02/25/22 stage 2 L buttock noted 02/22/22 foam dsg Based on the above, could you please provide, in the Progress Notes, further information regarding the ulcer/wound: * Location of the ulcer/wound, including laterality * Type (etiology) of ulcer/wound * Pressure (decubitus) ulcer * Traumatic wound * Other * Unable to determine * For a non-pressure ulcer, please indicate the depth/severity: * Limited to the breakdown of skin * With fat layer exposed * With necrosis of muscle * With necrosis of bone * Other * Unable to determine * If a pressure ulcer, please also include the stage* of the ulcer: * Stage 1 - Skin intact, non-blanchable redness * Stage 2 - Partial thickness loss of dermis, includes intact or open blister * Stage 3 - Full thickness tissue not including bone, tendon, or muscle * Stage 4 - Full thickness tissue loss, including exposed bones, tendon, or muscle * Unstageable - Full thickness tissue loss in which the base of the ulcer is covered by slough (yellow, gaines, cardona, green or brown) and/or eschar (gaines, brown, or black) in the wound bed. * Suspected deep tissue injury - Purple or maroon localized area of discolored intact skin or blood-filled blister due to damage of underlying soft tissues from pressure and/or shear. The area may be preceded by tissue that is painful, firm, mushy, boggy, warmer, or cooler as compare to adjacent tissue. * Unable to determine *Source: National Pressure Ulcer Advisory Panel (NPUAP) Use of terms such as suspected, likely, concern for, or probable (associated with a specific diagnosis that is being evaluated, monitored, or treated as if it exists) are acceptable and can be coded in the inpatient setting, when documented at the time of discharge. Thank you, Sania Dash RN Extension: [phone] Please use your independent medical judgment in providing your response. THIS QUERY IS PART OF THE PERMANENT MEDICAL RECORD Other Diagnosis: pressure ulcer
--- NOTE | 2022-02-25 07:14 | MHC.CDI.CONC ---
CDI Concurrent Query Documentation Clarification: PHYSICIAN'S DOCUMENTATION REQUEST Date of Query: 02/25/22 0715 Patient Name: Tobias Anguiano Admit Date: 02/20/22 Dear Doctor, A review of the medical record indicates additional documentation may be indicated. Please review below and update the documentation accordingly. Clinical Indicators: Risk Factors/Clinical Indicators/Treatments Per nursing wound assessment 02/22/22 -02/25/22 stage 2 L buttock noted 02/22/22 foam dsg Based on the above, could you please provide, in the Progress Notes, further information regarding the ulcer/wound: Location of the ulcer/wound, including laterality Type (etiology) of ulcer/wound Pressure (decubitus) ulcer Traumatic wound Other Unable to determine For a non-pressure ulcer, please indicate the depth/severity: Limited to the breakdown of skin With fat layer exposed With necrosis of muscle With necrosis of bone Other Unable to determine If a pressure ulcer, please also include the stage* of the ulcer: Stage 1 - Skin intact, non-blanchable redness Stage 2 - Partial thickness loss of dermis, includes intact or open blister Stage 3 - Full thickness tissue not including bone, tendon, or muscle Stage 4 - Full thickness tissue loss, including exposed bones, tendon, or muscle Unstageable - Full thickness tissue loss in which the base of the ulcer is covered by slough (yellow, gaines, cardona, green or brown) and/or eschar (gaines, brown, or black) in the wound bed. Suspected deep tissue injury - Purple or maroon localized area of discolored intact skin or blood-filled blister due to damage of underlying soft tissues from pressure and/or shear. The area may be preceded by tissue that is painful, firm, mushy, boggy, warmer, or cooler as compare to adjacent tissue. Unable to determine *Source: National Pressure Ulcer Advisory Panel (NPUAP) Use of terms such as suspected, likely, concern for, or probable (associated with a specific diagnosis that is being evaluated, monitored, or treated as if it exists) are acceptable and can be coded in the inpatient setting, when documented at the time of discharge. Thank you, Sania Dash RN Extension: [phone] Please use your independent medical judgment in providing your response. THIS QUERY IS PART OF THE PERMANENT MEDICAL RECORD Other Diagnosis: pressure ulcer
[2022-02-25 08:00] VITALS: BP 115/78; PULSE 79; RESP 20; TEMP 36.5; O2SAT 99
[2022-02-25] MEDS: Potassium Chloride ER 20 MEQ TAB.ER.PRT 60 MEQ PO (10:44)
[2022-02-25] MEDS: Metoprolol Tartrate 25 MG TABLET PO ×2 (10:44→22:13)
[2022-02-25] MEDS: Bumetanide 1 MG TABLET 2 MG PO ×2 (10:44→22:13)
[2022-02-25] MEDS: 0.9 % Sodium Chloride Flush 3 ML SYRINGE IVFLUSH ×3 (10:45→22:14)
[2022-02-25 11:13] LABS: INTERNATIONAL NORM RATIO 1.5 (0.9-1.1); Prothrombin Time 17.4 SEC (10.0-13.1)
--- NOTE | 2022-02-25 11:20 | P.PNIM_ITS ---
Subjective Subjective Date of Service: 02/25/22 Review of Systems Follow up Gram pos bacteremia/coag neg staph Pain in back and left leg denies chest pain, sob, cough Physical Exam Vital Signs: Vital Signs: Last Vital Signs Temp 97.7 F 02/25/22 08:00 Pulse 79 02/25/22 08:00 Resp 20 02/25/22 08:00 BP 115/78 02/25/22 08:00 Pulse Ox 99 02/25/22 08:00 O2 Del Method 02/25/22 08:00 O2 Flow Rate 2 02/25/22 03:57 FiO2 99 02/22/22 03:47 BMI result Body Mass Index 28.9 Appearing in no acute distress lung sounds are clear to auscultation heart regular rate rhythm, clear S1, S2 positive bowel sounds, abdomen is soft, nontender neuro patient is alert x3, no focal deficits contractures of lower extremities Objective Data Active Medications Acetaminophen (Acetaminophen 325 Mg Tablet) 650 mg PO Q6H PRN PRN Reason: Pain, Mild (Pain Scale 1-3) Last Admin: 02/24/22 13:27 Dose: 650 mg Documented By: MICHELLE Bumetanide (Bumetanide 1 Mg Tablet) 2 mg PO BID [facility]; Protocol Last Admin: 02/25/22 10:44 Dose: 2 mg Documented By: EUGENIO Lorazepam (Lorazepam 0.5 Mg Tablet) 0.25 mg PO Q8H PRN PRN Reason: anxiety Last Admin: 02/25/22 01:40 Dose: 0.25 mg Documented By: MARANDA Metoprolol Tartrate (Metoprolol Tartrate 25 Mg Tablet) 25 mg PO BID [facility]; Protocol Last Admin: 02/25/22 10:44 Dose: 25 mg Documented By: EUGENIO Ondansetron HCl (Ondansetron Hcl 4 Mg/2 Ml Vial) 4 mg IVPUSH Q8H PRN PRN Reason: Nausea and Vomiting Oxycodone HCl (Oxycodone Hcl Immed Release 5 Mg Tablet) 5 mg PO Q6H PRN PRN Reason: Pain, Moderate (Pain Scale 4-6 Last Admin: 02/25/22 10:48 Dose: 5 mg Documented By: EUGENIO Pharmacy Consult (Consult Rx Perform Med Rec) 1 each MISCELLANE ONCE PRN PRN Reason: Consult order Pharmacy Consult (Consult Rx Vancomycin Dosing) 1 each MISCELLANE DAILY PRN PRN Reason: Consult order Potassium Chloride (Potassium Chloride Er 20 Meq Tab.Er.Prt) 60 meq PO DAILY [facility] Last Admin: 02/25/22 10:44 Dose: 60 meq Documented By: EUGENIO Sertraline HCl (Sertraline Hcl 100 Mg Tablet) 100 mg PO BEDTIME [facility] Last Admin: 02/24/22 20:59 Dose: 100 mg Documented By: MARANDA Sodium Chloride (0.9 % Sodium Chloride Flush 3 Ml Syringe) 3 ml IVFLUSH QSHIFT [facility] Last Admin: 02/25/22 10:45 Dose: 3 ml Documented By: EUGENIO Tramadol HCl (Tramadol Hcl 50 Mg Tablet) 25 mg PO Q6H PRN PRN Reason: Pain, Moderate (Pain Scale 4-6 Last Admin: 02/24/22 15:28 Dose: 25 mg Documented By: MICHELLE Warfarin Sodium (Warfarin Sodium 2 Mg Tablet) 2 mg PO SUSA@1800 [facility] Warfarin Sodium (Warfarin Sodium 2 Mg Tablet) 2 mg PO MOTUWETHFR@1800 [facility] Last Admin: 02/24/22 17:57 Dose: 2 mg Documented By: MICHELLE Labs CBC & Chem 7: 02/19/22 11:41 02/24/22 06:48 Labs: Laboratory Results - last 24 hr 02/24/22 02/25/22 03:54 10:28 PT 17.4 H INR 1.5 H POC Glucose 86 Assessment and Plan (1) Acute hypokalemia: Status: Acute (2) Gram-positive bacteremia: Status: Acute Plan This is a 81 year old female with a PMH of A. fib (presumed persistent), chronic CHF (no recent echo in system), anxiety who presented to [facility] [place] on 02/19/22 initially for psychosocial reasons. She was initially a case mgmt consult for placement but she has become increasing hypotensive with a positive UA. Hence, she will be admitted for further care. Coag negative staph stop vancomycin no skin infection seen; cxr showing opacity at left lung base, pt asymptomatic echo normal EF, no vegetation ID following Hypotension. Better today asymptomatic and improving suspected hypovolemia and not due to severe sepsis/septic shock UTI UA positive and symptoms of incontinence urine culture-mixed bacterial carlos a characteristic of contamination - d/c ceftriaxone subtherapeutic INR 1.5 Increase warfarin Follow-up PT INR daily A. Fib (presumed persistent) with RVR HR up and down but better today continue coumadin -- INR daily continue metoprolol may need dig in light of hypotension / cardiology consult Chronic HFpEF, unspecified no exacerbation bumex resumed, blood pressure more stable Mood continue baseline meds HypoK/hypoMg repleted and improved monitor daily continue baseline potassium Full Code DVT pptx - coumadin attending - Dr. Grayson DISPO PT rec LTC as patient is unable to participate in PT (she is bedbound). She needs [employer] coverage for LTC, Daughter is stating that she is unable to care for her at home and patient is unable to care for herself requires ongoing inpatient hospitalization due to Gram-positive bacteremia and management for the same, pending cx and safe discharge Quality Stroke Does the patient have a stroke diagnosis?: No VTE Prior VTE?: No VTE Risk Level:: Medical - moderate - high VTE Device Contraindication: Treatment Not Indicated VTE Drug Contraindication: Treatment Not Indicated
[2022-02-25 11:21] LABS: Creatinine Clr Calc Pharmacy 59.1; Estimated Glomerular Filt Rate > 60
[2022-02-25 11:40] VITALS: BP 124/74; PULSE 99; RESP 20; TEMP 36.4; O2SAT 96
[2022-02-25] MEDS: traMADoL HCL 50 MG TABLET 25 MG PO ×2 (12:22→22:11)
[2022-02-25 14:57] VITALS: BP 102/58; PULSE 80; RESP 18; TEMP 36.4; O2SAT 95
[2022-02-25] MEDS: Warfarin Sodium 2 MG TABLET PO (18:10)
[2022-02-25 19:23] VITALS: BP 94/55; PULSE 97; RESP 17; TEMP 36.6; O2SAT 99
[2022-02-25] MEDS: Sertraline HCL 100 MG TABLET PO (22:12)
[2022-02-25] MEDS: Acetaminophen 325 MG TABLET 650 MG PO (22:13)
[2022-02-25 23:48] VITALS: BP 95/52; PULSE 67; RESP 20; TEMP 36.7; O2SAT 96
[2022-02-26] MEDS: oxyCODONE HCl Immed Release 5 MG TABLET PO ×2 (04:12→10:17)
[2022-02-26] MEDS: Acetaminophen 325 MG TABLET 650 MG PO ×2 (06:06→13:29)
[2022-02-26] MEDS: traMADoL HCL 50 MG TABLET 25 MG PO (06:06)
[2022-02-26 06:59] LABS: INTERNATIONAL NORM RATIO 1.4 (0.9-1.1); Prothrombin Time 16.6 SEC (10.0-13.1)
[2022-02-26 07:25] LABS: Creatinine Clr Calc Pharmacy 52.1; Estimated Glomerular Filt Rate 57
[2022-02-26 07:34] VITALS: BP 108/60; PULSE 88; RESP 17; TEMP 37.3; O2SAT 97
[2022-02-26 09:09] LABS: Magnesium 1.8 mg/dL (1.6-2.6); Potassium 4.5 mmol/L (3.3-5.1)
[2022-02-26] MEDS: Potassium Chloride ER 20 MEQ TAB.ER.PRT 60 MEQ PO (10:07)
[2022-02-26] MEDS: 0.9 % Sodium Chloride Flush 3 ML SYRINGE IVFLUSH ×2 (10:07→16:50)
[2022-02-26] MEDS: Bumetanide 1 MG TABLET 2 MG PO ×2 (10:07→21:14)
[2022-02-26] MEDS: Metoprolol Tartrate 25 MG TABLET PO ×2 (10:07→21:15)
--- NOTE | 2022-02-26 10:19 | MHC.CM.PN ---
CM Note 02/26/22 Female 81 DX AFIB PT recommends LTC. Multiple referrals have been sent out. All of the facilities have declined the patient. She does not have a secondary payor for LTC. She does not qualify for STR. Financial services working with the pt's son, to complete the [employer] application. DP LTC via BLS.
[2022-02-26 11:04] VITALS: BP 109/65; PULSE 74; RESP 17; TEMP 36.7; O2SAT 97
--- NOTE | 2022-02-26 14:17 | P.PNIM_ITS ---
Subjective Subjective Date of Service: 02/26/22 Interval History: ventricular rate controlled no chest pain, palpitations, lightheadedness, or dyspnea c/o pain in feet and hands from psoriatic arthritis Review of Systems Review of Systems: Yes all other systems are reviewed and are negative Physical Exam Vital Signs: Vital Signs: Last Vital Signs Temp 98.1 F 02/26/22 11:04 Pulse 74 02/26/22 11:04 Resp 17 02/26/22 11:04 BP 109/65 02/26/22 11:04 Pulse Ox 97 02/26/22 11:04 O2 Del Method 02/26/22 11:04 O2 Flow Rate 2 02/26/22 11:04 FiO2 99 02/22/22 03:47 BMI result Body Mass Index 28.9 Gen: in no acute distress HEENT: sclera anicteric, moist mucus membranes Neck: supple Lungs: clear to auscultation bilaterally Heart: irregularly irregular Abd: soft, non-tender, non-distended Ext: deformities in joints of hands and feet Skin: warm/well-perfused Neuro: alert and oriented x3, no focal findings Psych: appropriate affect Objective Data Active Medications Acetaminophen (Acetaminophen 325 Mg Tablet) 650 mg PO Q6H PRN PRN Reason: Pain, Mild (Pain Scale 1-3) Last Admin: 02/26/22 13:29 Dose: 650 mg Documented By: GINNA Bumetanide (Bumetanide 1 Mg Tablet) 2 mg PO BID [facility]; Protocol Last Admin: 02/26/22 10:07 Dose: 2 mg Documented By: GINNA Comments: BP-108/60 Lorazepam (Lorazepam 0.5 Mg Tablet) 0.25 mg PO Q8H PRN PRN Reason: anxiety Last Admin: 02/25/22 22:11 Dose: 0.25 mg Documented By: CANDACE Metoprolol Tartrate (Metoprolol Tartrate 25 Mg Tablet) 25 mg PO BID [facility]; Protocol Last Admin: 02/26/22 10:07 Dose: 25 mg Documented By: GINNA Comments: BP-108/60 Ondansetron HCl (Ondansetron Hcl 4 Mg/2 Ml Vial) 4 mg IVPUSH Q8H PRN PRN Reason: Nausea and Vomiting Oxycodone HCl (Oxycodone Hcl Immed Release 5 Mg Tablet) 5 mg PO Q6H PRN PRN Reason: Pain, Moderate (Pain Scale 4-6 Last Admin: 02/26/22 10:17 Dose: 5 mg Documented By: GINNA Pharmacy Consult (Consult Rx Perform Med Rec) 1 each MISCELLANE ONCE PRN PRN Reason: Consult order Pharmacy Consult (Consult Rx Vancomycin Dosing) 1 each MISCELLANE DAILY PRN PRN Reason: Consult order Potassium Chloride (Potassium Chloride Er 20 Meq Tab.Er.Prt) 60 meq PO DAILY [facility] Last Admin: 02/26/22 10:07 Dose: 60 meq Documented By: GINNA Sertraline HCl (Sertraline Hcl 100 Mg Tablet) 100 mg PO BEDTIME [facility] Last Admin: 02/25/22 22:12 Dose: 100 mg Documented By: CANDACE Sodium Chloride (0.9 % Sodium Chloride Flush 3 Ml Syringe) 3 ml IVFLUSH QSHIFT [facility] Last Admin: 02/26/22 10:07 Dose: 3 ml Documented By: GINNA Warfarin Sodium (Warfarin Sodium 2 Mg Tablet) 2 mg PO SUSA@1800 [facility] Warfarin Sodium (Warfarin Sodium 2 Mg Tablet) 2 mg PO MOTUWETHFR@1800 [facility] Last Admin: 02/25/22 18:10 Dose: 2 mg Documented By: EUGENIO Labs CBC & Chem 7: 02/19/22 11:41 02/26/22 06:33 Labs: Laboratory Results - last 24 hr 02/26/22 02/26/22 06:11 06:33 PT 16.6 H INR 1.4 H Estim Creat Clear Calc 52.1 Estimated GFR 57 Magnesium 1.8 Assessment and Plan (1) Acute hypokalemia: Status: Acute (2) Gram-positive bacteremia: Status: Acute Plan hospital d#7 81yo F with AF (persistent?) + HFpEF, initially was awaiting for LTC placement but became hypotensive and had positive UA concerning for infection, though ultimately grew coag-neg staph from urine and blood thought to be contaminant # hypotension - improved after IV fluids, suspect hypovolemia, not sepsis # AF - continue metoprolol for rate control - INR subtherapeutic, will increase warfarin and follow INR daily # chronic HFpEF - continue bumetanide, metoprolol # hypoK - repleted # hypoMg - repleted # anxiety - continue lorazepam # psoriatic arthritis - prn oxycodone- increase dose # VTE ppx: warfarin In my clinical judgment, the patient requires continued hospitalization for the following reasons: LTC placement, safe disposition Quality Stroke Does the patient have a stroke diagnosis?: No VTE Prior VTE?: No VTE Risk Level:: Medical - moderate - high VTE Device Contraindication: Treatment Not Indicated VTE Drug Contraindication: Treatment Not Indicated
[2022-02-26 15:36] VITALS: BP 113/52; PULSE 88; RESP 20; TEMP 36.1; O2SAT 96
[2022-02-26] MEDS: Warfarin Sodium 2 MG TABLET PO (16:50)
[2022-02-26] MEDS: oxyCODONE HCl Immed Release 5 MG TABLET 7.5 MG PO (18:52)
[2022-02-26 19:17] VITALS: BP 162/85; PULSE 88; RESP 20; TEMP 36.6; O2SAT 95
--- NOTE | 2022-02-26 20:09 | MHC.CLN ---
F/U DIET=CARDIAC. PATIENT WITH HX CHF AND TAKES BUMEX. STAGE II WOULD TO LEFT BUTTOCK. SUPPLEMENT BID TO PROMOTE WOUND HEALING (700 KCALS, 40 G PROTEIN). FOLLOW FOR INTAKE AND WOUND.
[2022-02-26] MEDS: Sertraline HCL 100 MG TABLET PO (21:14)
[2022-02-26 23:19] VITALS: BP 103/51; PULSE 80; RESP 18; TEMP 36.6; O2SAT 97
[2022-02-27] VITALS (7 sets, daily range): BP systolic 90–125; BP diastolic 48–66; PULSE 75–95; RESP 16–20; TEMP 36.5–37.3; O2SAT 92–97
[2022-02-27 06:20] LABS: INTERNATIONAL NORM RATIO 1.7 (0.9-1.1); Prothrombin Time 19.6 SEC (10.0-13.1)
[2022-02-27 06:45] LABS: Creatinine Clr Calc Pharmacy 55.1; Estimated Glomerular Filt Rate > 60
[2022-02-27] MEDS: oxyCODONE HCl Immed Release 5 MG TABLET 7.5 MG PO ×2 (08:35→14:56)
[2022-02-27] MEDS: Potassium Chloride ER 20 MEQ TAB.ER.PRT 60 MEQ PO (08:37)
[2022-02-27] MEDS: Metoprolol Tartrate 25 MG TABLET PO (08:37)
[2022-02-27] MEDS: 0.9 % Sodium Chloride Flush 3 ML SYRINGE IVFLUSH ×3 (08:37→23:40)
[2022-02-27] MEDS: Bumetanide 1 MG TABLET 2 MG PO (08:37)
[2022-02-27] MEDS: LORazepam 0.5 MG TABLET 0.25 MG PO (12:07)
[2022-02-27] MEDS: Lidocaine 4 % Patch ADH..PATCH 1 PATCH TRANSDERMA (12:08)
--- NOTE | 2022-02-27 12:41 | HO.PM.IMPN ---
Subjective Subjective Date of Service: 02/27/22 Interval History: no lightheadedness no palpitations hand and foot pain slightly better but worst in L foot Review of Systems Review of Systems: Yes all other systems are reviewed and are negative Physical Exam Vital Signs: Vital Signs: Last Vital Signs Temp 97.8 F 02/27/22 11:03 Pulse 78 02/27/22 11:03 Resp 20 02/27/22 11:03 BP 121/60 02/27/22 11:03 Pulse Ox 92 02/27/22 11:03 O2 Del Method 02/27/22 11:03 O2 Flow Rate 2 02/27/22 11:03 FiO2 99 02/22/22 03:47 BMI result Body Mass Index 28.9 Gen: in no acute distress HEENT: sclera anicteric, moist mucus membranes Neck: supple Lungs: clear to auscultation bilaterally Heart: irregularly irregular Abd: soft, non-tender, non-distended Ext: deformities in joints of hands and feet Skin: warm/well-perfused Neuro: alert and oriented x3, no focal findings Psych: appropriate affect Objective Data Active Medications Acetaminophen (Acetaminophen 325 Mg Tablet) 650 mg PO Q6H PRN PRN Reason: Pain, Mild (Pain Scale 1-3) Last Admin: 02/26/22 13:29 Dose: 650 mg Documented By: GINNA Bumetanide (Bumetanide 1 Mg Tablet) 2 mg PO BID [facility]; Protocol Last Admin: 02/27/22 08:37 Dose: 2 mg Documented By: RON Lidocaine (Lidocaine 4 % Patch Adh..Patch) 1 patch TRANSDERMA DAILY [facility]; Protocol Last Admin: 02/27/22 12:08 Dose: 1 patch Documented By: RON Lorazepam (Lorazepam 0.5 Mg Tablet) 0.25 mg PO Q8H PRN PRN Reason: anxiety Last Admin: 02/27/22 12:07 Dose: 0.25 mg Documented By: RON Metoprolol Tartrate (Metoprolol Tartrate 25 Mg Tablet) 25 mg PO BID [facility]; Protocol Last Admin: 02/27/22 08:37 Dose: 25 mg Documented By: RON Ondansetron HCl (Ondansetron Hcl 4 Mg/2 Ml Vial) 4 mg IVPUSH Q8H PRN PRN Reason: Nausea and Vomiting Oxycodone HCl (Oxycodone Hcl Immed Release 5 Mg Tablet) 7.5 mg PO Q6H PRN PRN Reason: Pain, Moderate (Pain Scale 4-6 Last Admin: 02/27/22 08:35 Dose: 7.5 mg Documented By: RON Pharmacy Consult (Consult Rx Perform Med Rec) 1 each MISCELLANE ONCE PRN PRN Reason: Consult order Pharmacy Consult (Consult Rx Vancomycin Dosing) 1 each MISCELLANE DAILY PRN PRN Reason: Consult order Potassium Chloride (Potassium Chloride Er 20 Meq Tab.Er.Prt) 60 meq PO DAILY [facility] Last Admin: 02/27/22 08:37 Dose: 60 meq Documented By: RON Sertraline HCl (Sertraline Hcl 100 Mg Tablet) 100 mg PO BEDTIME [facility] Last Admin: 02/26/22 21:14 Dose: 100 mg Documented By: EUGENIO Sodium Chloride (0.9 % Sodium Chloride Flush 3 Ml Syringe) 3 ml IVFLUSH QSHIFT [facility] Last Admin: 02/27/22 08:37 Dose: 3 ml Documented By: RON Warfarin Sodium (Warfarin Sodium 2 Mg Tablet) 2 mg PO SUSA@1800 [facility] Warfarin Sodium (Warfarin Sodium 2 Mg Tablet) 2 mg PO MOTUWETHFR@1800 [facility] Last Admin: 02/26/22 16:50 Dose: 2 mg Documented By: CHAN Labs CBC & Chem 7: 02/19/22 11:41 02/27/22 05:51 Labs: Laboratory Results - last 24 hr 02/27/22 02/27/22 05:51 05:51 PT 19.6 H INR 1.7 H Estim Creat Clear Calc 55.1 Estimated GFR > 60 Microbiology Microbiology Results: Microbiology 02/21/22 12:42 Blood Culture - Final Blood - Venous No growth after 5 days. 02/21/22 12:36 Blood Culture - Final Blood - Venous No growth after 5 days. Assessment and Plan (1) Acute hypokalemia: Status: Acute (2) Gram-positive bacteremia: Status: Acute Plan hospital d#8 81yo F with AF (persistent?) + HFpEF, initially was awaiting for LTC placement but became hypotensive and had positive UA concerning for infection, though ultimately grew coag-neg staph from urine and blood thought to be contaminant # hypotension - resolved after IV fluids, suspect hypovolemia, not sepsis # AF - continue metoprolol for rate control - warfarin resumed, INR not quite yet therapeutic # chronic HFpEF - continue bumetanide, metoprolol # hypoK - repleted # hypoMg - repleted # anxiety - continue lorazepam # psoriatic arthritis - prn oxycodone, add lidocaine patch # VTE ppx: warfarin In my clinical judgment, the patient requires continued hospitalization for the following reasons: LTC placement, safe disposition Quality Stroke Does the patient have a stroke diagnosis?: No VTE Prior VTE?: No VTE Risk Level:: Medical - moderate - high VTE Device Contraindication: Treatment Not Indicated VTE Drug Contraindication: Treatment Not Indicated
[2022-02-27] MEDS: Acetaminophen 325 MG TABLET 650 MG PO ×2 (14:56→23:35)
[2022-02-27] MEDS: Warfarin Sodium 2 MG TABLET PO ×2 (16:41→17:27)
[2022-02-28 03:37] VITALS: RESP 17
[2022-02-28 04:06] VITALS: BP 106/58; PULSE 108; RESP 19; TEMP 36.8; O2SAT 93
[2022-02-28 06:46] LABS: INTERNATIONAL NORM RATIO 1.7 (0.9-1.1); Prothrombin Time 19.5 SEC (10.0-13.1)
[2022-02-28 07:45] VITALS: BP 121/58; PULSE 82; RESP 20; TEMP 36.2; O2SAT 98
[2022-02-28] MEDS: 0.9 % Sodium Chloride Flush 3 ML SYRINGE IVFLUSH ×3 (09:43→20:26)
[2022-02-28] MEDS: Lidocaine 4 % Patch ADH..PATCH 1 PATCH TRANSDERMA (09:43)
[2022-02-28] MEDS: Bumetanide 1 MG TABLET 2 MG PO (09:44)
[2022-02-28] MEDS: Metoprolol Tartrate 25 MG TABLET PO (09:44)
[2022-02-28] MEDS: Potassium Chloride ER 20 MEQ TAB.ER.PRT 60 MEQ PO (09:44)
[2022-02-28] MEDS: oxyCODONE HCl Immed Release 5 MG TABLET 7.5 MG PO ×3 (09:57→23:22)
[2022-02-28 11:34] VITALS: BP 102/62; PULSE 84; RESP 16; TEMP 36.7; O2SAT 96
--- NOTE | 2022-02-28 12:24 | P.PNIM_ITS ---
Subjective Subjective Date of Service: 02/28/22 Interval History: HR controlled foot pain improved Review of Systems Review of Systems: Yes all other systems are reviewed and are negative Physical Exam Vital Signs: Vital Signs: Last Vital Signs Temp 98.0 F 02/28/22 11:34 Pulse 84 02/28/22 11:34 Resp 16 02/28/22 11:34 BP 102/62 02/28/22 11:34 Pulse Ox 96 02/28/22 11:34 O2 Del Method 02/28/22 11:34 O2 Flow Rate 2 02/28/22 11:34 FiO2 99 02/22/22 03:47 BMI result Body Mass Index 28.9 Gen: in no acute distress HEENT: sclera anicteric, moist mucus membranes Neck: supple Lungs: clear to auscultation bilaterally Heart: irregularly irregular Abd: soft, non-tender, non-distended Ext: deformities in joints of hands and feet Skin: warm/well-perfused Neuro: alert and oriented x3, no focal findings Psych: appropriate affect Objective Data Active Medications Acetaminophen (Acetaminophen 325 Mg Tablet) 650 mg PO Q6H PRN PRN Reason: Pain, Mild (Pain Scale 1-3) Last Admin: 02/27/22 23:35 Dose: 650 mg Documented By: MAJO Bumetanide (Bumetanide 1 Mg Tablet) 2 mg PO BID [facility]; Protocol Last Admin: 02/28/22 09:44 Dose: 2 mg Documented By: TASHA Lidocaine (Lidocaine 4 % Patch Adh..Patch) 1 patch TRANSDERMA DAILY [facility]; Protocol Last Admin: 02/28/22 09:43 Dose: 1 patch Documented By: TASHA Lorazepam (Lorazepam 0.5 Mg Tablet) 0.25 mg PO Q8H PRN PRN Reason: anxiety Last Admin: 02/27/22 12:07 Dose: 0.25 mg Documented By: RON Metoprolol Tartrate (Metoprolol Tartrate 25 Mg Tablet) 25 mg PO BID [facility]; Protocol Last Admin: 02/28/22 09:44 Dose: 25 mg Documented By: TASHA Ondansetron HCl (Ondansetron Hcl 4 Mg/2 Ml Vial) 4 mg IVPUSH Q8H PRN PRN Reason: Nausea and Vomiting Oxycodone HCl (Oxycodone Hcl Immed Release 5 Mg Tablet) 7.5 mg PO Q6H PRN PRN Reason: Pain, Moderate (Pain Scale 4-6 Last Admin: 02/28/22 09:57 Dose: 7.5 mg Documented By: TASHA Pharmacy Consult (Consult Rx Perform Med Rec) 1 each MISCELLANE ONCE PRN PRN Reason: Consult order Pharmacy Consult (Consult Rx Vancomycin Dosing) 1 each MISCELLANE DAILY PRN PRN Reason: Consult order Potassium Chloride (Potassium Chloride Er 20 Meq Tab.Er.Prt) 60 meq PO DAILY [facility] Last Admin: 02/28/22 09:44 Dose: 60 meq Documented By: TASHA Sertraline HCl (Sertraline Hcl 100 Mg Tablet) 100 mg PO BEDTIME [facility] Last Admin: 02/27/22 21:02 Dose: Not Given Documented By: MAJO Non-Admin Reason: Decreased Blood Pressure Sodium Chloride (0.9 % Sodium Chloride Flush 3 Ml Syringe) 3 ml IVFLUSH QSHIFT [facility] Last Admin: 02/28/22 09:43 Dose: 3 ml Documented By: TASHA Warfarin Sodium (Warfarin Sodium 2 Mg Tablet) 2 mg PO MOTUWETHFR@1800 [facility] Last Admin: 02/27/22 17:27 Dose: 2 mg Documented By: RON Warfarin Sodium (Warfarin Sodium 3 Mg Tablet) 3 mg PO SUSA@1800 [facility] Labs CBC & Chem 7: 02/19/22 11:41 02/27/22 05:51 Labs: Laboratory Results - last 24 hr 02/28/22 06:16 PT 19.5 H INR 1.7 H Assessment and Plan (1) Acute hypokalemia: Status: Acute (2) Gram-positive bacteremia: Status: Acute Plan hospital d#9 81yo F with AF (persistent?) + HFpEF, initially was awaiting for LTC placement but became hypotensive and had positive UA concerning for infection, though ultimately grew coag-neg staph from urine and blood thought to be contaminant # hypotension - resolved after IV fluids, suspect hypovolemia, not sepsis # AF - continue metoprolol for rate control - warfarin resumed, INR not quite yet therapeutic # chronic HFpEF - continue bumetanide, metoprolol # hypoK - repleted # hypoMg - repleted # anxiety - continue lorazepam # psoriatic arthritis - prn oxycodone, add lidocaine patch # VTE ppx: warfarin In my clinical judgment, the patient requires continued hospitalization for the following reasons: LTC placement, safe disposition Quality Stroke Does the patient have a stroke diagnosis?: No VTE Prior VTE?: No VTE Risk Level:: Medical - moderate - high VTE Device Contraindication: Treatment Not Indicated VTE Drug Contraindication: Treatment Not Indicated
--- NOTE | 2022-02-28 13:36 | MHC.CLN ---
F/U DIET=CARDIAC-APPROPRIATE. VARIABLE INTAKE, 25-75%. STAGE II WOULD TO LEFT BUTTOCK. SUPPLEMENT ENSURE BID TO PROMOTE WOUND HEALING (700 KCALS, 40 G PROTEIN). FOLLOW FOR INTAKE AND WOUND.
--- NOTE | 2022-02-28 15:30 | MHC.CM.PN ---
Addendum entered by Alma Fournier 02/28/22 16:07: T/W called dtr Haley this afternoon. Haley states that she has obtained all of the info that has been requested. A [place] text has been sent to Deepika with Jean contact info. Original Note: DP Per PT rec LTC. Patient does not have a secondary payor. Financial [place] consult in progress. Update from Kitty. requested. Deepika reports that She has not been able to reach the pts dtr. She plans to reach out again today.
[2022-02-28 15:35] VITALS: BP 113/60; PULSE 102; RESP 16; TEMP 36.4; O2SAT 90
[2022-02-28] MEDS: Warfarin Sodium 2 MG TABLET PO (18:15)
[2022-02-28 19:25] VITALS: BP 99/54; PULSE 88; RESP 18; TEMP 37.2; O2SAT 96
[2022-02-28] MEDS: Sertraline HCL 100 MG TABLET PO (20:23)
[2022-02-28] MEDS: LORazepam 0.5 MG TABLET 0.25 MG PO (20:24)
[2022-02-28] MEDS: Acetaminophen 325 MG TABLET 650 MG PO (20:24)
[2022-03-01] VITALS: BP 90/53; PULSE 90; RESP 20; TEMP 36.4; O2SAT 97
[2022-03-01 07:40] VITALS: BP 103/61; PULSE 97; RESP 20; TEMP 36.6; O2SAT 95
[2022-03-01] MEDS: LORazepam 0.5 MG TABLET 0.25 MG PO (09:31)
[2022-03-01] MEDS: Bumetanide 1 MG TABLET 2 MG PO ×2 (09:31→21:08)
[2022-03-01] MEDS: Potassium Chloride ER 20 MEQ TAB.ER.PRT 60 MEQ PO (09:31)
[2022-03-01] MEDS: Metoprolol Tartrate 25 MG TABLET PO ×2 (09:31→21:11)
[2022-03-01] MEDS: 0.9 % Sodium Chloride Flush 3 ML SYRINGE IVFLUSH ×2 (09:32→15:10)
[2022-03-01] MEDS: oxyCODONE HCl Immed Release 5 MG TABLET 7.5 MG PO ×3 (09:32→21:08)
[2022-03-01] MEDS: Lidocaine 4 % Patch ADH..PATCH 1 PATCH TRANSDERMA (09:33)
[2022-03-01 09:55] LABS: INTERNATIONAL NORM RATIO 1.6 (0.9-1.1); Prothrombin Time 19.3 SEC (10.0-13.1)
--- NOTE | 2022-03-01 11:38 | P.PNIM_ITS ---
Subjective Subjective Date of Service: 03/01/22 Interval History: c/o foot pain no palpitations no chest pain no dyspnea Review of Systems Review of Systems: Yes all other systems are reviewed and are negative Physical Exam Vital Signs: Vital Signs: Last Vital Signs Temp 97.9 F 03/01/22 07:40 Pulse 97 03/01/22 07:40 Resp 20 03/01/22 07:40 BP 103/61 03/01/22 07:40 Pulse Ox 95 03/01/22 07:40 O2 Del Method 03/01/22 07:40 O2 Flow Rate 2.0 02/28/22 19:25 FiO2 99 02/22/22 03:47 BMI result Body Mass Index 28.9 Gen: in no acute distress HEENT: sclera anicteric, moist mucus membranes Neck: supple Lungs: clear to auscultation bilaterally Heart: irregularly irregular Abd: soft, non-tender, non-distended Ext: deformities in joints of hands and feet Skin: warm/well-perfused Neuro: alert and oriented x3, no focal findings Psych: appropriate affect Objective Data Active Medications Acetaminophen (Acetaminophen 325 Mg Tablet) 650 mg PO Q6H PRN PRN Reason: Pain, Mild (Pain Scale 1-3) Last Admin: 02/28/22 20:24 Dose: 650 mg Documented By: MARANDA Bumetanide (Bumetanide 1 Mg Tablet) 2 mg PO BID [facility]; Protocol Last Admin: 03/01/22 09:31 Dose: 2 mg Documented By: ABIMAEL Lidocaine (Lidocaine 4 % Patch Adh..Patch) 1 patch TRANSDERMA DAILY [facility]; Protocol Last Admin: 03/01/22 09:33 Dose: 1 patch Documented By: ABIMAEL Lorazepam (Lorazepam 0.5 Mg Tablet) 0.25 mg PO Q8H PRN PRN Reason: anxiety Last Admin: 03/01/22 09:31 Dose: 0.25 mg Documented By: ABIMAEL Metoprolol Tartrate (Metoprolol Tartrate 25 Mg Tablet) 25 mg PO BID [facility]; Protocol Last Admin: 03/01/22 09:31 Dose: 25 mg Documented By: ABIMAEL Ondansetron HCl (Ondansetron Hcl 4 Mg/2 Ml Vial) 4 mg IVPUSH Q8H PRN PRN Reason: Nausea and Vomiting Oxycodone HCl (Oxycodone Hcl Immed Release 5 Mg Tablet) 7.5 mg PO Q6H PRN PRN Reason: Pain, Moderate (Pain Scale 4-6 Last Admin: 03/01/22 09:32 Dose: 7.5 mg Documented By: ABIMAEL Pharmacy Consult (Consult Rx Perform Med Rec) 1 each MISCELLANE ONCE PRN PRN Reason: Consult order Pharmacy Consult (Consult Rx Vancomycin Dosing) 1 each MISCELLANE DAILY PRN PRN Reason: Consult order Potassium Chloride (Potassium Chloride Er 20 Meq Tab.Er.Prt) 60 meq PO DAILY [facility] Last Admin: 03/01/22 09:31 Dose: 60 meq Documented By: ABIMAEL Sertraline HCl (Sertraline Hcl 100 Mg Tablet) 100 mg PO BEDTIME [facility] Last Admin: 02/28/22 20:23 Dose: 100 mg Documented By: MARANDA Sodium Chloride (0.9 % Sodium Chloride Flush 3 Ml Syringe) 3 ml IVFLUSH QSHIFT [facility] Last Admin: 03/01/22 09:32 Dose: 3 ml Documented By: ABIMAEL Warfarin Sodium (Warfarin Sodium 2 Mg Tablet) 2 mg PO MOTUWETHFR@1800 [facility] Last Admin: 02/28/22 18:15 Dose: 2 mg Documented By: TASHA Warfarin Sodium (Warfarin Sodium 3 Mg Tablet) 3 mg PO SUSA@1800 [facility] Labs CBC & Chem 7: 02/19/22 11:41 02/27/22 05:51 Labs: Laboratory Results - last 24 hr 03/01/22 09:38 PT 19.3 H INR 1.6 H Assessment and Plan (1) Acute hypokalemia: Status: Acute (2) Gram-positive bacteremia: Status: Acute Plan hospital d#10 81yo F with AF (persistent?) + HFpEF, initially was awaiting for LTC placement but became hypotensive and had positive UA concerning for infection, though ultimately grew coag-neg staph from urine and blood determined to be contaminant # hypotension - resolved after IV fluids, suspect hypovolemia, not sepsis # AF - continue metoprolol for rate control - warfarin resumed, INR not quite yet therapeutic # chronic HFpEF - continue bumetanide, metoprolol # hypoK - repleted # hypoMg - repleted # anxiety - continue lorazepam # psoriatic arthritis - prn oxycodone, lidocaine patch # VTE ppx: warfarin In my clinical judgment, the patient requires continued hospitalization for the following reasons: LTC placement, safe disposition Quality Stroke Does the patient have a stroke diagnosis?: No VTE Prior VTE?: No VTE Risk Level:: Medical - moderate - high VTE Device Contraindication: Treatment Not Indicated VTE Drug Contraindication: Treatment Not Indicated
[2022-03-01 12:00] VITALS: BP 102/70; PULSE 90; RESP 22; TEMP 36.8; O2SAT 97
[2022-03-01 15:14] VITALS: BP 105/71; PULSE 101; RESP 18; TEMP 36.7; O2SAT 96
[2022-03-01] MEDS: Nystatin Powder 15 GM BOTTLE 1 APPL TOPICAL (18:57)
[2022-03-01 19:09] VITALS: BP 99/51; PULSE 82; RESP 18; TEMP 36.7; O2SAT 96
[2022-03-01] MEDS: Warfarin Sodium 3 MG TABLET PO (19:28)
[2022-03-01] MEDS: Sertraline HCL 100 MG TABLET PO (21:08)
[2022-03-01 23:13] VITALS: BP 99/54; PULSE 60; RESP 18; TEMP 36.7; O2SAT 97
[2022-03-02] VITALS (7 sets, daily range): BP systolic 90–122; BP diastolic 52–74; PULSE 76–93; RESP 16–20; TEMP 36.1–37.1; O2SAT 92–98
[2022-03-02] MEDS: oxyCODONE HCl Immed Release 5 MG TABLET 7.5 MG PO ×3 (02:28→18:31)
[2022-03-02] MEDS: 0.9 % Sodium Chloride Flush 3 ML SYRINGE IVFLUSH ×4 (02:31→23:54)
[2022-03-02 07:38] LABS: INTERNATIONAL NORM RATIO 1.6 (0.9-1.1)
[2022-03-02] MEDS: Lidocaine 4 % Patch ADH..PATCH 1 PATCH TRANSDERMA (07:56)
[2022-03-02] MEDS: Potassium Chloride ER 20 MEQ TAB.ER.PRT 60 MEQ PO (07:57)
[2022-03-02] MEDS: Bumetanide 1 MG TABLET 2 MG PO ×2 (07:57→21:02)
[2022-03-02] MEDS: Metoprolol Tartrate 25 MG TABLET PO ×2 (07:57→21:02)
[2022-03-02] MEDS: Nystatin Powder 15 GM BOTTLE 1 APPL TOPICAL ×2 (08:08→21:02)
--- NOTE | 2022-03-02 10:30 | P.PNIM_ITS ---
Subjective Subjective Date of Service: 03/02/22 Interval History: Chronic foot pain No cardiac complaints Review of Systems Review of Systems: Yes all other systems are reviewed and are negative Physical Exam Vital Signs: Vital Signs: Last Vital Signs Temp 97.5 F 03/02/22 08:42 Pulse 83 03/02/22 08:42 Resp 16 03/02/22 08:42 BP 99/55 L 03/02/22 08:42 Pulse Ox 98 03/02/22 08:42 O2 Del Method 03/02/22 08:42 O2 Flow Rate 2 03/02/22 07:09 FiO2 99 02/22/22 03:47 BMI result Body Mass Index 28.9 Gen: in no acute distress HEENT: sclera anicteric, moist mucus membranes Neck: supple Lungs: clear to auscultation bilaterally Heart: irregularly irregular, rate-controlled Abd: soft, non-tender, non-distended Ext: deformities in joints of hands and feet Skin: warm/well-perfused Neuro: alert and oriented x3, no focal findings Psych: appropriate affect Objective Data Active Medications Acetaminophen (Acetaminophen 325 Mg Tablet) 650 mg PO Q6H PRN PRN Reason: Pain, Mild (Pain Scale 1-3) Last Admin: 02/28/22 20:24 Dose: 650 mg Documented By: MARANDA Bumetanide (Bumetanide 1 Mg Tablet) 2 mg PO BID [facility]; Protocol Last Admin: 03/02/22 07:57 Dose: 2 mg Documented By: NAGA Lidocaine (Lidocaine 4 % Patch Adh..Patch) 1 patch TRANSDERMA DAILY [facility]; Protocol Last Admin: 03/02/22 07:56 Dose: 1 patch Documented By: NAGA Metoprolol Tartrate (Metoprolol Tartrate 25 Mg Tablet) 25 mg PO BID [facility]; Protocol Last Admin: 03/02/22 07:57 Dose: 25 mg Documented By: NAGA Nystatin (Nystatin Powder 15 Gm Bottle) 1 appl TOPICAL TID [facility]; Protocol Last Admin: 03/02/22 08:08 Dose: 1 appl Documented By: NAGA Ondansetron HCl (Ondansetron Hcl 4 Mg/2 Ml Vial) 4 mg IVPUSH Q8H PRN PRN Reason: Nausea and Vomiting Oxycodone HCl (Oxycodone Hcl Immed Release 5 Mg Tablet) 7.5 mg PO Q6H PRN PRN Reason: Pain, Moderate (Pain Scale 4-6 Last Admin: 03/02/22 02:28 Dose: 7.5 mg Documented By: KRUNAL Pharmacy Consult (Consult Rx Perform Med Rec) 1 each MISCELLANE ONCE PRN PRN Reason: Consult order Pharmacy Consult (Consult Rx Vancomycin Dosing) 1 each MISCELLANE DAILY PRN PRN Reason: Consult order Potassium Chloride (Potassium Chloride Er 20 Meq Tab.Er.Prt) 60 meq PO DAILY [facility] Last Admin: 03/02/22 07:57 Dose: 60 meq Documented By: NAGA Sertraline HCl (Sertraline Hcl 100 Mg Tablet) 100 mg PO BEDTIME [facility] Last Admin: 03/01/22 21:08 Dose: 100 mg Documented By: CHAN Sodium Chloride (0.9 % Sodium Chloride Flush 3 Ml Syringe) 3 ml IVFLUSH QSHIFT [facility] Last Admin: 03/02/22 07:56 Dose: 3 ml Documented By: NAGA Warfarin Sodium (Warfarin Sodium 2 Mg Tablet) 2 mg PO MOTUWETHFR@1800 [facility] Last Admin: 02/28/22 18:15 Dose: 2 mg Documented By: TASHA Warfarin Sodium (Warfarin Sodium 3 Mg Tablet) 3 mg PO SUSA@1800 [facility] Last Admin: 03/01/22 19:28 Dose: 3 mg Documented By: CHAN Labs CBC & Chem 7: 02/19/22 11:41 02/27/22 05:51 Labs: Laboratory Results - last 24 hr 03/02/22 06:37 PT 19.0 H INR 1.6 H Assessment and Plan (1) Acute hypokalemia: Status: Acute (2) Gram-positive bacteremia: Status: Acute Plan hospital d#11 81yo F with AF (persistent?) + HFpEF, initially was awaiting for LTC placement but became hypotensive and had positive UA concerning for infection, though ultimately grew coag-neg staph from urine and blood determined to be contaminant # hypotension - resolved after IV fluids, suspect hypovolemia, not sepsis # AF - continue metoprolol for rate control - warfarin resumed, INR not quite yet therapeutic, increase dose # chronic HFpEF - continue bumetanide, metoprolol # hypoK - repleted # hypoMg - repleted # anxiety - continue lorazepam # psoriatic arthritis - prn oxycodone, lidocaine patch # VTE ppx: warfarin In my clinical judgment, the patient requires continued hospitalization for the following reasons: LTC placement, safe disposition Quality Stroke Does the patient have a stroke diagnosis?: No VTE Prior VTE?: No VTE Risk Level:: Medical - moderate - high VTE Device Contraindication: Treatment Not Indicated VTE Drug Contraindication: Treatment Not Indicated
[2022-03-02] MEDS: Acetaminophen 325 MG TABLET 650 MG PO ×2 (11:46→18:30)
[2022-03-02] MEDS: Warfarin Sodium 4 MG TABLET PO (17:47)
[2022-03-02] MEDS: Sertraline HCL 100 MG TABLET PO (21:02)
[2022-03-03] MEDS: oxyCODONE HCl Immed Release 5 MG TABLET 7.5 MG PO ×3 (00:50→20:17)
[2022-03-03 04:00] VITALS: BP 107/55; PULSE 91; RESP 16; TEMP 36.2; O2SAT 92
[2022-03-03 06:14] LABS: INTERNATIONAL NORM RATIO 2.1 (0.9-1.1); Prothrombin Time 24.8 SEC (10.0-13.1)
[2022-03-03 08:00] VITALS: BP 130/71; PULSE 78; RESP 20; TEMP 36.4; O2SAT 92
[2022-03-03] MEDS: 0.9 % Sodium Chloride Flush 3 ML SYRINGE IVFLUSH ×3 (09:31→20:18)
[2022-03-03] MEDS: Metoprolol Tartrate 25 MG TABLET PO ×2 (09:32→20:17)
[2022-03-03] MEDS: Potassium Chloride ER 20 MEQ TAB.ER.PRT 60 MEQ PO (09:32)
--- NOTE | 2022-03-03 09:32 | MHC.CM.PN ---
Female 81 DX AFIB. Patient is cleared to discharge. Spoke with dtr Thursday. She states that she has all info needed. [facility] notified that the Dtr is waiting for call. Contact info provided. Anticipate DC early this week if application complete.
[2022-03-03] MEDS: Lidocaine 4 % Patch ADH..PATCH 1 PATCH TRANSDERMA (09:33)
[2022-03-03] MEDS: Nystatin Powder 15 GM BOTTLE 1 APPL TOPICAL ×3 (09:33→20:18)
[2022-03-03] MEDS: Bumetanide 1 MG TABLET 2 MG PO (09:42)
[2022-03-03 11:52] VITALS: BP 99/57; PULSE 87; RESP 20; TEMP 36.6; O2SAT 94
--- NOTE | 2022-03-03 13:17 | HO.PM.IMPN ---
Subjective Subjective Date of Service: 03/03/22 Interval History: complaining of left foot pain on oxycodone 7.5 every 6 hours, denies shortness of breath, no dizziness, no headache, complaining of significant stress related to her daughter, tolerating diet no nausea , no vomiting. Review of Systems Review of Systems: Yes all other systems are reviewed and are negative Physical Exam Vital Signs: Vital Signs: Last Vital Signs Temp 97.9 F 03/03/22 11:52 Pulse 87 03/03/22 11:52 Resp 20 03/03/22 11:52 BP 99/57 L 03/03/22 11:52 Pulse Ox 94 03/03/22 11:52 O2 Del Method 03/03/22 11:52 O2 Flow Rate 94 03/02/22 12:00 FiO2 99 02/22/22 03:47 BMI result Body Mass Index 28.9 Const: Other: Gen: in no acute distress Neck: supple Lungs: clear to auscultation bilaterally Heart: irregularly irregular, rate-controlled Abd: soft, non-tender, non-distended Ext: significant deformities in joints of hands and feet Skin: warm/well-perfused Neuro: alert and oriented x3, no focal findings Psych: appropriate affect ? Objective Data Active Medications Acetaminophen (Acetaminophen 325 Mg Tablet) 650 mg PO Q6H PRN PRN Reason: Pain, Mild (Pain Scale 1-3) Last Admin: 03/02/22 18:30 Dose: 650 mg Documented By: NAGA Bumetanide (Bumetanide 1 Mg Tablet) 2 mg PO BID [facility]; Protocol Last Admin: 03/03/22 09:42 Dose: 2 mg Documented By: TASHA Lidocaine (Lidocaine 4 % Patch Adh..Patch) 1 patch TRANSDERMA DAILY [facility]; Protocol Last Admin: 03/03/22 09:33 Dose: 1 patch Documented By: TASHA Metoprolol Tartrate (Metoprolol Tartrate 25 Mg Tablet) 25 mg PO BID [facility]; Protocol Last Admin: 03/03/22 09:32 Dose: 25 mg Documented By: TASHA Nystatin (Nystatin Powder 15 Gm Bottle) 1 appl TOPICAL TID [facility]; Protocol Last Admin: 03/03/22 09:33 Dose: 1 appl Documented By: TASHA Ondansetron HCl (Ondansetron Hcl 4 Mg/2 Ml Vial) 4 mg IVPUSH Q8H PRN PRN Reason: Nausea and Vomiting Oxycodone HCl (Oxycodone Hcl Immed Release 5 Mg Tablet) 7.5 mg PO Q6H PRN PRN Reason: Pain, Moderate (Pain Scale 4-6 Last Admin: 03/03/22 09:31 Dose: 7.5 mg Documented By: TASHA Pharmacy Consult (Consult Rx Perform Med Rec) 1 each MISCELLANE ONCE PRN PRN Reason: Consult order Potassium Chloride (Potassium Chloride Er 20 Meq Tab.Er.Prt) 60 meq PO DAILY [facility] Last Admin: 03/03/22 09:32 Dose: 60 meq Documented By: TASHA Sertraline HCl (Sertraline Hcl 100 Mg Tablet) 100 mg PO BEDTIME [facility] Last Admin: 03/02/22 21:02 Dose: 100 mg Documented By: CHAN Sodium Chloride (0.9 % Sodium Chloride Flush 3 Ml Syringe) 3 ml IVFLUSH QSHIFT [facility] Last Admin: 03/03/22 09:31 Dose: 3 ml Documented By: TASHA Warfarin Sodium (Warfarin Sodium 2 Mg Tablet) 2 mg PO MOTUWETHFR@1800 [facility] Last Admin: 02/28/22 18:15 Dose: 2 mg Documented By: TASHA Warfarin Sodium (Warfarin Sodium 4 Mg Tablet) 4 mg PO SUSA@1800 [facility] Last Admin: 03/02/22 17:47 Dose: 4 mg Documented By: NAGA Labs CBC & Chem 7: 02/19/22 11:41 02/27/22 05:51 Labs: Laboratory Results - last 24 hr 03/03/22 05:41 PT 24.8 H INR 2.1 H Assessment and Plan (1) Acute hypokalemia: Status: Acute (2) Gram-positive bacteremia: Status: Acute Plan hospital d#11 81yo F with AF (persistent?) + HFpEF, initially was awaiting for LTC placement but became hypotensive and had positive UA concerning for infection, though ultimately grew coag-neg staph from urine and blood determined to be contaminant # hypotension resolved status post IV fluid - noted to have soft blood pressures will reduce dose of Bumex # AF - continue metoprolol for rate control - warfarin resumed, INR 2.1 continue current dose and follow PT INR # chronic HFpEF - appears euvolemic ,continue bumetanide dose reduced to 2 mg daily, continue, metoprolol # hypoK - repleted # hypoMg - repleted # anxiety - will add as needed Xanax # psoriatic arthritis - prn oxycodone, lidocaine patch and add prn celebrex # VTE ppx: warfarin In my clinical judgment, the patient requires continued hospitalization for the following reasons: LTC placement, safe disposition Quality Stroke Does the patient have a stroke diagnosis?: No VTE Prior VTE?: No VTE Risk Level:: Medical - moderate - high VTE Device Contraindication: Treatment Not Indicated VTE Drug Contraindication: Treatment Not Indicated
--- NOTE | 2022-03-03 14:38 | MHC.CLN ---
F/U PO INTAKE 25-50% DIET RX: CARDIAC-APPROPRIATE SUPPLEMENT ENSURE BID IN PLACE TO PROMOTE WOUND HEALING PROVIDES 700 KCALS, 40 G PROTEIN MONITOR PO INTAKE CLOSELY
[2022-03-03] MEDS: Celecoxib 100 MG CAPSULE PO (14:58)
[2022-03-03 15:16] VITALS: BP 94/56; PULSE 80; RESP 18; TEMP 36.4; O2SAT 94
[2022-03-03] MEDS: Warfarin Sodium 2 MG TABLET PO (18:30)
[2022-03-03 19:16] VITALS: BP 109/50; PULSE 114; RESP 18; TEMP 36.1; O2SAT 96
[2022-03-03] MEDS: Sertraline HCL 100 MG TABLET PO (20:17)
[2022-03-04] VITALS: BP 93/51; PULSE 90; RESP 17; TEMP 36.7; O2SAT 97
[2022-03-04] MEDS: Acetaminophen 325 MG TABLET 650 MG PO ×2 (01:28→13:40)
[2022-03-04] MEDS: ALPRAZolam 0.25 MG TABLET 0.125 MG PO ×2 (01:28→13:41)
[2022-03-04] MEDS: oxyCODONE HCl Immed Release 5 MG TABLET 7.5 MG PO ×2 (04:21→11:00)
[2022-03-04 07:05] LABS: INTERNATIONAL NORM RATIO 2.4 (0.9-1.1)
[2022-03-04 07:18] VITALS: BP 91/54; PULSE 74; RESP 17; TEMP 36.3; O2SAT 97
[2022-03-04 10:54] VITALS: BP 101/54; PULSE 93
[2022-03-04 10:56] VITALS: BP 101/54; PULSE 82; RESP 17; TEMP 36.9; O2SAT 96
[2022-03-04] MEDS: Potassium Chloride ER 20 MEQ TAB.ER.PRT 60 MEQ PO (11:02)
[2022-03-04] MEDS: Metoprolol Tartrate 25 MG TABLET PO (11:03)
[2022-03-04] MEDS: Bumetanide 1 MG TABLET 2 MG PO (11:04)
[2022-03-04] MEDS: Lidocaine 4 % Patch ADH..PATCH 1 PATCH TRANSDERMA (11:04)
[2022-03-04] MEDS: 0.9 % Sodium Chloride Flush 3 ML SYRINGE IVFLUSH ×2 (11:05→15:39)
[2022-03-04] MEDS: Nystatin Powder 15 GM BOTTLE 1 APPL TOPICAL ×2 (11:08→15:39)
--- NOTE | 2022-03-04 13:19 | P.PNIM_ITS ---
Subjective Subjective Date of Service: 03/04/22 Interval History: Complaining of pain few hours after effect of oxycodone wears off, otherwise no other acute issues, is not on home oxygen, wishes to be weaned off of O2 has been using incentive spirometry, has been bed-bound for 1 year. Review of Systems Review of Systems: Yes all other systems are reviewed and are negative Physical Exam Vital Signs: Vital Signs: Last Vital Signs Temp 98.4 F 03/04/22 10:56 Pulse 82 03/04/22 10:56 Resp 17 03/04/22 10:56 BP 101/54 L 03/04/22 10:56 Pulse Ox 96 03/04/22 10:56 O2 Del Method 03/04/22 10:56 O2 Flow Rate 2 03/04/22 10:56 FiO2 99 02/22/22 03:47 BMI result Body Mass Index 28.9 Const: Other: Gen: in no acute distress Neck: supple Lungs: clear to auscultation bilaterally Heart: irregularly irregular, rate-controlled Abd: soft, non-tender, non-distended Ext:? significant deformities in joints of hands and feet Skin: warm/well-perfused Neuro: alert and oriented x3, no focal findings Psych: appropriate affect Objective Data Active Medications Acetaminophen (Acetaminophen 325 Mg Tablet) 650 mg PO Q6H PRN PRN Reason: Pain, Mild (Pain Scale 1-3) Last Admin: 03/04/22 01:28 Dose: 650 mg Documented By: CANDACE Hydrocodone Bitart/Acetaminophen (Hydrocodone Bit/Acetam 7.5/325 Tablet) 1 tab PO Q6H PRN PRN Reason: Pain, Severe (Pain Scale 7-10) Alprazolam (Alprazolam 0.25 Mg Tablet) 0.125 mg PO BID PRN PRN Reason: Anxiety Last Admin: 03/04/22 01:28 Dose: 0.125 mg Documented By: CANDACE Bumetanide (Bumetanide 1 Mg Tablet) 2 mg PO DAILY [facility]; Protocol Last Admin: 03/04/22 11:04 Dose: 2 mg Documented By: SANDRA Lidocaine (Lidocaine 4 % Patch Adh..Patch) 1 patch TRANSDERMA DAILY [facility]; Protocol Last Admin: 03/04/22 11:04 Dose: 1 patch Documented By: SANDRA Metoprolol Tartrate (Metoprolol Tartrate 25 Mg Tablet) 25 mg PO BID [facility]; Protocol Last Admin: 03/04/22 11:03 Dose: 25 mg Documented By: SANDRA Nystatin (Nystatin Powder 15 Gm Bottle) 1 appl TOPICAL TID [facility]; Protocol Last Admin: 03/04/22 11:08 Dose: 1 appl Documented By: SANDRA Ondansetron HCl (Ondansetron Hcl 4 Mg/2 Ml Vial) 4 mg IVPUSH Q8H PRN PRN Reason: Nausea and Vomiting Pharmacy Consult (Consult Rx Perform Med Rec) 1 each MISCELLANE ONCE PRN PRN Reason: Consult order Potassium Chloride (Potassium Chloride Er 20 Meq Tab.Er.Prt) 60 meq PO DAILY [facility] Last Admin: 03/04/22 11:02 Dose: 60 meq Documented By: SANDRA Sertraline HCl (Sertraline Hcl 100 Mg Tablet) 100 mg PO BEDTIME [facility] Last Admin: 03/03/22 20:17 Dose: 100 mg Documented By: CANDACE Sodium Chloride (0.9 % Sodium Chloride Flush 3 Ml Syringe) 3 ml IVFLUSH QSHIFT [facility] Last Admin: 03/04/22 11:05 Dose: 3 ml Documented By: SANDRA Warfarin Sodium (Warfarin Sodium 2 Mg Tablet) 2 mg PO MOTUWETHFR@1800 [facility] Last Admin: 03/03/22 18:30 Dose: 2 mg Documented By: TASHA Warfarin Sodium (Warfarin Sodium 4 Mg Tablet) 4 mg PO SUSA@1800 [facility] Last Admin: 03/02/22 17:47 Dose: 4 mg Documented By: NAGA Labs CBC & Chem 7: 02/19/22 11:41 02/27/22 05:51 Labs: Laboratory Results - last 24 hr 03/04/22 06:52 PT 29.0 H INR 2.4 H Assessment and Plan (1) Acute hypokalemia: Status: Acute (2) Gram-positive bacteremia: Status: Acute Plan 81yo F with AF (persistent?) + HFpEF, initially was awaiting for LTC placement but became hypotensive and had positive UA concerning for infection, though ultimately grew coag-neg staph from urine and blood determined to be contaminant # hypotension resolved status post IV fluid - noted to have soft blood pressures , dose of Bumex changed to 2 mg once daily, continue to follow BP closely # AF - continue metoprolol for rate control - warfarin resumed, INR 2.4 continue current dose and follow PT INR daily noted to have significant jump in INR will reduce dose of Coumadin # chronic HFpEF - appears euvolemic ,continue bumetanide dose reduced to 2 mg daily, continue, metoprolol # hypoK - repleted # hypoMg - repleted # anxiety - will add as needed Xanax # psoriatic arthritis - will change oxycodone to Lorcet 7.5/325, continue lidocaine patch and prn celebrex # VTE ppx: warfarin In my clinical judgment, the patient requires continued hospitalization for the following reasons: LTC placement, safe disposition Quality Stroke Does the patient have a stroke diagnosis?: No VTE Prior VTE?: No VTE Risk Level:: Medical - moderate - high VTE Device Contraindication: Treatment Not Indicated VTE Drug Contraindication: Treatment Not Indicated
[2022-03-04 15:28] VITALS: BP 98/51; PULSE 82; RESP 18; TEMP 36.4; O2SAT 95
[2022-03-04] MEDS: HYDROcodone Bit/Acetam 7.5/325 TABLET 1 TAB PO (15:36)
[2022-03-04] MEDS: Warfarin Sodium 2 MG TABLET PO (17:19)
[2022-03-04 20:00] VITALS: PULSE 77; RESP 17
[2022-03-05 02:56] VITALS: BP 105/59; PULSE 86; RESP 16; TEMP 36.8; O2SAT 99
[2022-03-05] MEDS: HYDROcodone Bit/Acetam 7.5/325 TABLET 1 TAB PO ×4 (03:46→22:16)
[2022-03-05 07:01] LABS: INTERNATIONAL NORM RATIO 2.2 (0.9-1.1); Prothrombin Time 26.1 SEC (10.0-13.1)
[2022-03-05 07:05] LABS: Hematocrit 31.6 % (37.0-47.0); Hemoglobin 10.1 g/dl (12.0-16.0); Mean Corpuscular Hemoglobin 30.7 pg (27.0-33.0); Mean Platelet Volume 9.6 fL (9.4-12.3); Platelet Count 189 X10*3/uL (160-400); Red Blood Count 3.29 X10*6/uL (4.20-5.50); Red Cell Distribution Width 13.5 % (11.0-16.0); White Blood Count 5.7 X10*3/uL (4.8-10.8)
[2022-03-05 07:10] LABS: Anion Gap 13 (12-20); Blood Urea Nitrogen 33 mg/dL (9-16); Calcium 8.1 mg/dL (8.4-10.2); Carbon Dioxide 30 mmol/L (22-29); Chloride 104 mmol/L (96-108); Creatinine Clr Calc Pharmacy 45.4; Estimated Glomerular Filt Rate 49; Glucose Random 120 mg/dL (60-115); Potassium 4.8 mmol/L (3.3-5.1); Sodium 142 mmol/L (135-145)
[2022-03-05 07:16] VITALS: BP 100/62; PULSE 83; RESP 19; TEMP 36.7; O2SAT 99
[2022-03-05] MEDS: Lidocaine 4 % Patch ADH..PATCH 1 PATCH TRANSDERMA (08:52)
[2022-03-05] MEDS: Nystatin Powder 15 GM BOTTLE 1 APPL TOPICAL ×2 (08:53→16:04)
[2022-03-05] MEDS: Potassium Chloride ER 20 MEQ TAB.ER.PRT 60 MEQ PO (08:53)
[2022-03-05] MEDS: Bumetanide 1 MG TABLET 2 MG PO (08:53)
[2022-03-05] MEDS: Metoprolol Tartrate 25 MG TABLET PO (08:53)
[2022-03-05] MEDS: 0.9 % Sodium Chloride Flush 3 ML SYRINGE IVFLUSH ×2 (08:54→18:51)
--- NOTE | 2022-03-05 11:16 | HO.PM.IMPN ---
Subjective Subjective Date of Service: 03/05/22 Interval History: Complaining of left foot pain, requesting for podiatry, no other acute events overnight, oxygenation remains stable, tolerating diet. Wishes to be seen by Psychiatry for ongoing anxiety although does not want medications that will affect her cognition. Review of Systems [employer] no headache no dizziness CVS no chest pain Respiratory no cough, no shortness of breath Review of Systems: Yes all other systems are reviewed and are negative Physical Exam Vital Signs: Vital Signs: Last Vital Signs Temp 98.1 F 03/05/22 07:16 Pulse 83 03/05/22 07:16 Resp 19 03/05/22 07:16 BP 100/62 03/05/22 07:16 Pulse Ox 99 03/05/22 07:16 O2 Del Method 03/05/22 07:16 O2 Flow Rate 2.5 03/05/22 07:16 FiO2 99 02/22/22 03:47 BMI result Body Mass Index 28.9 Const: Other: Gen: in no acute distress Neck: supple Lungs: clear to auscultation bilaterally Heart: irregularly irregular, rate-controlled Abd: soft, non-tender, non-distended Ext:? significant deformities in joints of hands and feet Skin: warm/well-perfused Neuro: alert and oriented x3, no focal findings Psych: appropriate affect Objective Data Active Medications Acetaminophen (Acetaminophen 325 Mg Tablet) 650 mg PO Q6H PRN PRN Reason: Pain, Mild (Pain Scale 1-3) Last Admin: 03/04/22 13:40 Dose: 650 mg Documented By: RON Hydrocodone Bitart/Acetaminophen (Hydrocodone Bit/Acetam 7.5/325 Tablet) 1 tab PO Q6H PRN PRN Reason: Pain, Severe (Pain Scale 7-10) Last Admin: 03/05/22 09:51 Dose: 1 tab Documented By: GURPREET Alprazolam (Alprazolam 0.25 Mg Tablet) 0.125 mg PO BID PRN PRN Reason: Anxiety Last Admin: 03/04/22 13:41 Dose: 0.125 mg Documented By: RON Bumetanide (Bumetanide 1 Mg Tablet) 2 mg PO DAILY [facility]; Protocol Last Admin: 03/05/22 08:53 Dose: 2 mg Documented By: GURPREET Lidocaine (Lidocaine 4 % Patch Adh..Patch) 1 patch TRANSDERMA DAILY [facility]; Protocol Last Admin: 03/05/22 08:52 Dose: 1 patch Documented By: GURPREET Metoprolol Tartrate (Metoprolol Tartrate 25 Mg Tablet) 25 mg PO BID [facility]; Protocol Last Admin: 03/05/22 08:53 Dose: 25 mg Documented By: GURPREET Nystatin (Nystatin Powder 15 Gm Bottle) 1 appl TOPICAL TID [facility]; Protocol Last Admin: 03/05/22 08:53 Dose: 1 appl Documented By: GURPREET Ondansetron HCl (Ondansetron Hcl 4 Mg/2 Ml Vial) 4 mg IVPUSH Q8H PRN PRN Reason: Nausea and Vomiting Pharmacy Consult (Consult Rx Perform Med Rec) 1 each MISCELLANE ONCE PRN PRN Reason: Consult order Potassium Chloride (Potassium Chloride Er 20 Meq Tab.Er.Prt) 60 meq PO DAILY [facility] Last Admin: 03/05/22 08:53 Dose: 60 meq Documented By: GURPREET Sertraline HCl (Sertraline Hcl 100 Mg Tablet) 100 mg PO BEDTIME [facility] Last Admin: 03/05/22 03:29 Dose: Not Given Documented By: CANDACE Non-Admin Reason: Patient Refused Sodium Chloride (0.9 % Sodium Chloride Flush 3 Ml Syringe) 3 ml IVFLUSH QSHIFT [facility] Last Admin: 03/05/22 08:54 Dose: 3 ml Documented By: GURPREET Warfarin Sodium (Warfarin Sodium 2 Mg Tablet) 2 mg PO MOTUWETHFR@1800 [facility] Last Admin: 03/04/22 17:19 Dose: 2 mg Documented By: SANDRA Warfarin Sodium (Warfarin Sodium 4 Mg Tablet) 4 mg PO SUSA@1800 [facility] Last Admin: 03/02/22 17:47 Dose: 4 mg Documented By: NAGA Labs CBC & Chem 7: 03/05/22 06:20 03/05/22 06:20 Labs: Laboratory Results - last 24 hr 03/05/22 03/05/22 03/05/22 06:20 06:20 06:20 MCV 96.0 MCH 30.7 MCHC 32.0 RDW 13.5 Plt Count 189 MPV 9.6 Absolute Nucleated RBC 0.000 Nucleated RBC % (auto) 0.0 PT 26.1 H INR 2.2 H Anion Gap 13 Estim Creat Clear Calc 45.4 Estimated GFR 49 Random Glucose 120 H Calcium 8.1 L Assessment and Plan (1) Acute hypokalemia: Status: Acute (2) Gram-positive bacteremia: Status: Acute Plan 81yo F with AF (persistent?) + HFpEF, initially was awaiting for LTC placement but became hypotensive and had positive UA concerning for infection, though ultimately grew coag-neg staph from urine and blood determined to be contaminant # hypotension resolved status post IV fluid - BP remains soft, continue Bumex 2 mg appears euvolemic, follow BP # AF - continue metoprolol for rate control - warfarin resumed, INR 2.2 continue current dose and follow PT INR daily # chronic HFpEF - appears euvolemic ,continue bumetanide dose reduced to 2 mg daily, continue, metoprolol # hypoK - repleted, will reduce dose of potassium to 40 mg since dose of Bumex reduced # hypoMg - repleted # anxiety - patient wishes to be seen by psych, continue Xanax as needed , psych consult obtain # psoriatic arthritis - on Lorcet 7.5/325, continue lidocaine patch and prn celebrex, obtain OT eval # VTE ppx: warfarin In my clinical judgment, the patient requires continued hospitalization for LTC placement, safe disposition Quality Stroke Does the patient have a stroke diagnosis?: No VTE Prior VTE?: No VTE Risk Level:: Medical - moderate - high VTE Device Contraindication: Treatment Not Indicated VTE Drug Contraindication: Treatment Not Indicated
[2022-03-05 11:36] VITALS: BP 110/69; PULSE 83; RESP 18; TEMP 36.9; O2SAT 98
--- NOTE | 2022-03-05 11:55 | MHC.CLN ---
F/U PO INTAKE 50% DIET RX: CARDIAC-APPROPRIATE SUPPLEMENT ENSURE BID IN PLACE TO PROMOTE WOUND HEALING PROVIDES 700 KCALS, 40 G PROTEIN CONTINUE TO MONITOR PO INTAKE CLOSELY
--- NOTE | 2022-03-05 12:06 | MHC.CM.PN ---
Female 81 reported to T/W that she is anxious and overwhelmed. She requested to speak with someone. Dr Plasencia was notified . She stated that she would order psych eval. Patient's dtr Haley met with the Financial field assembly supervisor yesterday afternoon. Per F.C. The patients dtr may have difficulty obtaining the info needed. F.C. plans to contact [facility], the facility where the Pts spouse is admitted. She plans to obtain the info thru the patients .
[2022-03-05] MEDS: Acetaminophen 325 MG TABLET 650 MG PO (14:39)
[2022-03-05 15:11] VITALS: BP 94/52; PULSE 89; RESP 16; TEMP 37; O2SAT 96
--- NOTE | 2022-03-05 18:17 | P.CNPS_ITS ---
History of Present Illness Date of Service: 03/05/2022 Chief Complaint: Afib Reason for Consult: medication Requesting physician: Colin Plasencia Discussed with referring provider: Yes Sources of Information: patient interviewed and chart reviewed HPI Narrative: Tobias is a 81 yo female with a PMH of afib on coumadin, psoriatic arthritis, CHF, bed bound x over a year. Pt arrived to [facility] ED requesting placement, as she states she resides at home with her daughter and while her daughter takes care of her, she is nervous because her abusive is coming back home from a local [facility] facility. Pt is reliant on all ADLs. While in the ED, pt was found to be hypotensive with a positive UA. She was admitted for further treatment. She was given fluids and started on bumex for hypotension. Continued on metoprolol for afib, warfarin.? Consult placed for anxiety, as pt is highly anxious, called 911 while inpatient saying no one is helping her, seeking out staff frequently. She was started on low dose xanax PRN and is continued on sertraline 100 mg.? I spoke with pt this evening and she reports ?I have awful anxiety.? She reports multiple stressors, including that her daughter is bipolar and unmedicated and her has extensive medical issues. For her daughter, pt says ?I just worry about her.? She has been manic, says she recently paid 16,[address] a [address] in [place]. Sleep is ?not that great,? but says she doesnt like sleeping pills, has had nightmares on hypnotics, ?causes me more distress.? Denies fatigue in the day. Says she has been on zoloft for ?quite a while? and ?I dont think it does anything.? Denies efficacy on xanax. Pt is perseverative on her worried thoughts about her daughter. Says she is ?absolutely depressed? and ?waiting for god to take me somewhere else.? Denies active SI/SIB and says she feels safe.? Medical Evaluation Reviewed: Yes [facility] Medical History (Updated 02/23/22 @ 12:50 by Dougie Mckeon MD) Afib Anxiety CHF (congestive heart failure) Surgical History H/O hernia repair History of orthopedic surgery Diagnostics Vital Signs (24Hr): Vital Signs - 24 hr 03/04/22 20:00 03/05/22 02:56 03/05/22 07:16 Temperature 98.2 F 98.1 F Pulse Rate 77 86 83 Respiratory Rate 17 16 19 Blood Pressure 105/59 L 100/62 Pulse Oximetry 99 99 Oxygen Delivery Method Nasal Cannula Nasal Cannula Oxygen Flow Rate 2.5 2.5 03/05/22 11:36 03/05/22 15:11 Temperature 98.5 F 98.6 F Pulse Rate 83 89 Respiratory Rate 18 16 Blood Pressure 110/69 94/52 L Pulse Oximetry 98 96 Oxygen Delivery Method Nasal Cannula Nasal Cannula Oxygen Flow Rate 2.5 BMI result Body Mass Index 28.9 Labs Results: 03/05/22 06:20 03/05/22 06:20 Labs: Laboratory Results - last 48 hr 03/04/22 03/05/22 03/05/22 06:52 06:20 06:20 WBC 5.7 RBC 3.29 L Hgb 10.1 L Hct 31.6 L MCV 96.0 MCH 30.7 MCHC 32.0 RDW 13.5 Plt Count 189 MPV 9.6 Absolute Nucleated RBC 0.000 Nucleated RBC % (auto) 0.0 PT 29.0 H 26.1 H INR 2.4 H 2.2 H Sodium Potassium Chloride Carbon Dioxide Anion Gap BUN Creatinine Estim Creat Clear Calc Estimated GFR Random Glucose Calcium 03/05/22 06:20 WBC RBC Hgb Hct MCV MCH MCHC RDW Plt Count MPV Absolute Nucleated RBC Nucleated RBC % (auto) PT INR Sodium 142 Potassium 4.8 Chloride 104 Carbon Dioxide 30 H Anion Gap 13 BUN 33 H D Creatinine 1.08 Estim Creat Clear Calc 45.4 Estimated GFR 49 Random Glucose 120 H Calcium 8.1 L Imaging Radiology Impressions: ITS Impressions Chest X-Ray 02/20/22 05:06 IMPRESSION: Opacification of the left lung base which may correspond to a combination of overlying structures, effusion, atelectasis, or consolidation. Assessment is limited by the patient rotation. Consider repeat PA and lateral views when able. Chest X-Ray 02/20/22 11:27 IMPRESSION: Persistent abnormal opacity at the left lung base, likely consolidation, collapse and effusion. Chest CT 02/21/22 14:07 IMPRESSION: Volume loss left hemithorax with shift of the central mediastinal structures to the left. Patchy areas of lingula and left lower lobe atelectasis/consolidation and tiny left pleural effusion. Small clustered calcified and noncalcified right pulmonary nodules in the right upper and right lower lobes. Clustered appearance favors an infectious or inflammatory process. Enlarged heart. Coronary artery calcification. Enlarged pulmonary arteries suggestive of pulmonary artery hypertension. Question bilateral thyroid nodules. Follow-up thyroid ultrasound should be considered. Increased thoracic kyphosis. T12 severe vertebral body compression fracture. Question old manubrial fracture. Fleischner guidelines were followed. Mental Status Exam Mental Status Exam Narrative: A&O. In hospital attire, overweight, appears older than stated age. Good eye contact, attentive. Has tremors. No abnormal involuntary movements. Anxious, cooperative, engaged. Non-pressured speech, spontaneous with regular rate and rhythm, normal volume and prosody. No prolonged speech latency or dysarthria. Mood is ?anxious, depressed,? affect is congruent. Denies active SI/SIB/HI upon inquiry. Denies A/VH or delusional thought content. Thoughts are persever ative. No known cognitive or memory impairment. Insight/ Judgment limited. Medications Medications Current Medications Acetaminophen (Acetaminophen 325 Mg Tablet) 650 mg PO Q6H PRN PRN Reason: Pain, Mild (Pain Scale 1-3) Last Admin: 03/05/22 14:39 Dose: 650 mg Hydrocodone Bitart/Acetaminophen (Hydrocodone Bit/Acetam 7.5/325 Tablet) 1 tab PO Q6H PRN PRN Reason: Pain, Severe (Pain Scale 7-10) Last Admin: 03/05/22 15:57 Dose: 1 tab Alprazolam (Alprazolam 0.25 Mg Tablet) 0.125 mg PO BID PRN PRN Reason: Anxiety Last Admin: 03/04/22 13:41 Dose: 0.125 mg Bumetanide (Bumetanide 1 Mg Tablet) 2 mg PO DAILY [facility]; Protocol Last Admin: 03/05/22 08:53 Dose: 2 mg Lidocaine (Lidocaine 4 % Patch Adh..Patch) 1 patch TRANSDERMA DAILY [facility]; Pr otocol Last Admin: 03/05/22 08:52 Dose: 1 patch Metoprolol Tartrate (Metoprolol Tartrate 25 Mg Tablet) 25 mg PO BID [facility]; Protocol Last Admin: 03/05/22 08:53 Dose: 25 mg Nystatin (Nystatin Powder 15 Gm Bottle) 1 appl TOPICAL TID [facility]; Protocol Last Admin: 03/05/22 16:04 Dose: 1 appl Ondansetron HCl (Ondansetron Hcl 4 Mg/2 Ml Vial) 4 mg IVPUSH Q8H PRN PRN Reason: Nausea and Vomiting Pharmacy Consult (Consult Rx Perform Med Rec) 1 each MISCELLANE ONCE PRN PRN Reason: Consult order Potassium Chloride (Potassium Chloride Er 20 Meq Tab.Er.Prt) 40 meq PO DAILY [facility] Sertraline HCl (Sertraline Hcl 100 Mg Tablet) 100 mg PO BEDTIME [facility] Last Admin: 03/05/22 03:29 Dose: Not Given Sodium Chloride (0.9 % Sodium Chloride Flush 3 Ml Syringe) 3 ml IVFLUSH QSHIFT [facility] Last Admin: 03/05/22 08:54 Dose: 3 ml Warfarin Sodium (Warfarin Sodium 2 Mg Tablet) 2 mg PO MOTUWETHFR@1800 [facility] Last Admin: 03/04/22 17:19 Dose: 2 mg Warfarin Sodium (Warfarin Sodium 4 Mg Tablet) 4 mg PO SUSA@1800 [facility] Last Admin: 03/02/22 17:47 Dose: 4 mg Allergies Allergies Allergy/AdvReac Type Severity Reaction Status Date / Time No Known Allergies Allergy Unverified 03/22/20 19:41 [No Known Allergies*] Assessment & Plan Assessment & Plan (1) Chronic heart failure: Status: Acute Code(s): I50.9 - Heart failure, unspecified (2) Afib: Status: Acute Code(s): I48.91 - Unspecified atrial fibrillation Plan Plan: D/C sertraline 100 mg and start escitalopram 10 mg for depression and anxiety. Start seroquel 12.5 mg BID PRN for anxiety, poor sleep. I have shared this with Dr. Plasencia Thank you for this consultation. If you have any questions or concerns, please do not hesitate to contact psychiatry service. I spent minutes with the patient and/or on the patient floor today, greater than?50% of which was spent counseling/coordinating care. Patient educated on: diagnosis, medication risk/benefits and therapeutic strategies
[2022-03-05] MEDS: Warfarin Sodium 2 MG TABLET PO (18:50)
[2022-03-05 19:04] VITALS: BP 85/54; PULSE 87; RESP 20; TEMP 37.2; O2SAT 96
[2022-03-05] MEDS: QUEtiapine Fumarate 25 MG TABLET 12.5 MG PO (22:32)
[2022-03-06] VITALS: BP 87/53; PULSE 93; RESP 16; TEMP 36.8; O2SAT 94
[2022-03-06 06:54] LABS: INTERNATIONAL NORM RATIO 2.2 (0.9-1.1); Prothrombin Time 26.6 SEC (10.0-13.1)
[2022-03-06 07:21] VITALS: BP 94/50; PULSE 83; RESP 17; TEMP 36.4; O2SAT 97
[2022-03-06] MEDS: Lidocaine 4 % Patch ADH..PATCH 1 PATCH TRANSDERMA (09:22)
[2022-03-06] MEDS: Potassium Chloride ER 20 MEQ TAB.ER.PRT 40 MEQ PO (09:22)
[2022-03-06] MEDS: HYDROcodone Bit/Acetam 7.5/325 TABLET 1 TAB PO ×3 (09:23→20:48)
[2022-03-06] MEDS: QUEtiapine Fumarate 25 MG TABLET 12.5 MG PO ×2 (09:23→20:47)
[2022-03-06] MEDS: Escitalopram Oxalate 10 MG TABLET PO (09:23)
[2022-03-06] MEDS: 0.9 % Sodium Chloride Flush 3 ML SYRINGE IVFLUSH ×3 (09:23→20:48)
[2022-03-06] MEDS: Metoprolol Tartrate 25 MG TABLET PO ×2 (09:24→20:48)
[2022-03-06] MEDS: Nystatin Powder 15 GM BOTTLE 1 APPL TOPICAL ×3 (09:25→20:48)
[2022-03-06 11:10] VITALS: BP 83/53; PULSE 84; RESP 16; TEMP 36.7; O2SAT 93
--- NOTE | 2022-03-06 14:55 | P.PNIM_ITS ---
Subjective Subjective Date of Service: 03/06/22 Interval History: Offers no acute complaints this morning, resting comfortably, stable foot pain, no acute issues overnight, complaining of anxiety. Review of Systems [employer] no headache no dizziness CVS no chest pain, no palpitation Respiratory no shortness of breath Review of Systems: Yes all other systems are reviewed and are negative Physical Exam Vital Signs: Vital Signs: Last Vital Signs Temp 98.0 F 03/06/22 11:10 Pulse 84 03/06/22 11:10 Resp 16 03/06/22 11:10 BP 83/53 L 03/06/22 11:10 Pulse Ox 93 03/06/22 11:10 O2 Del Method 03/06/22 11:10 O2 Flow Rate 2 03/06/22 11:10 FiO2 99 02/22/22 03:47 BMI result Body Mass Index 28.9 Const: Other: Gen: in no acute d istress Neck: supp le Lungs: clear to auscultation bila terally Heart: irr egularly irregular , rate-controlled Abd: soft, non-ten car, non-distended Ext:? significant deformities in leonard ints of hands and feet Skin: warm/we ll-perfused Neuro: alert and oriente d x3, no focal fin dings Psych: appro priate affect Objective Data Active Medications Acetaminophen (Acetaminophen 325 Mg Tablet) 650 mg PO Q6H PRN PRN Reason: Pain, Mild (Pain Scale 1-3) Last Admin: 03/05/22 14:39 Dose: 650 mg Documented By: SARAH Hydrocodone Bitart/Acetaminophen (Hydrocodone Bit/Acetam 7.5/325 Tablet) 1 tab PO Q6H PRN PRN Reason: Pain, Severe (Pain Scale 7-10) Last Admin: 03/06/22 09:23 Dose: 1 tab Documented By: ABIMAEL Bumetanide (Bumetanide 1 Mg Tablet) 2 mg PO DAILY [facility]; Protocol Last Admin: 03/05/22 08:53 Dose: 2 mg Documented By: GURPREET Escitalopram Oxalate (Escitalopram Oxalate 10 Mg Tablet) 10 mg PO DAILY [facility] Last Admin: 03/06/22 09:23 Dose: 10 mg Documented By: ABIMAEL Lidocaine (Lidocaine 4 % Patch Adh..Patch) 1 patch TRANSDERMA DAILY [facility]; Protocol Last Admin: 03/06/22 09:22 Dose: 1 patch Documented By: ABIMAEL Metoprolol Tartrate (Metoprolol Tartrate 25 Mg Tablet) 25 mg PO BID [facility]; Protocol Last Admin: 03/06/22 09:24 Dose: 25 mg Documented By: ABIMAEL Nystatin (Nystatin Powder 15 Gm Bottle) 1 appl TOPICAL TID [facility]; Protocol Last Admin: 03/06/22 09:25 Dose: 1 appl Documented By: ABIMAEL Ondansetron HCl (Ondansetron Hcl 4 Mg/2 Ml Vial) 4 mg IVPUSH Q8H PRN PRN Reason: Nausea and Vomiting Pharmacy Consult (Consult Rx Perform Med Rec) 1 each MISCELLANE ONCE PRN PRN Reason: Consult order Potassium Chloride (Potassium Chloride Er 20 Meq Tab.Er.Prt) 40 meq PO DAILY [facility] Last Admin: 03/06/22 09:22 Dose: 40 meq Documented By: ABIMAEL Quetiapine Fumarate (Quetiapine Fumarate 25 Mg Tablet) 12.5 mg PO BID PRN PRN Reason: anxiety, agitation Last Admin: 03/06/22 09:23 Dose: 12.5 mg Documented By: ABIMAEL Sodium Chloride (0.9 % Sodium Chloride Flush 3 Ml Syringe) 3 ml IVFLUSH QSHIFT [facility] Last Admin: 03/06/22 09:23 Dose: 3 ml Documented By: ABIMAEL Warfarin Sodium (Warfarin Sodium 2 Mg Tablet) 2 mg PO MOTUWETHFR@1800 [facility] Last Admin: 03/05/22 18:50 Dose: 2 mg Documented By: BROAldo Warfarin Sodium (Warfarin Sodium 4 Mg Tablet) 4 mg PO SUSA@1800 [facility] Last Admin: 03/02/22 17:47 Dose: 4 mg Documented By: NAGA Labs CBC & Chem 7: 03/05/22 06:20 03/05/22 06:20 Labs: Laboratory Results - last 24 hr 03/06/22 06:25 PT 26.6 H INR 2.2 H Assessment and Plan (1) Acute hypokalemia: Status: Acute (2) Gram-positive bacteremia: Status: Acute Plan 81yo F with AF (persistent?) + HFpEF, initially was awaiting for LTC placement but became hypotensive and had positive UA concerning for infection, though ultimately grew coag-neg staph from urine and blood determined to be contaminant # hypotension noted to have low blood pressures, will hold Bumex give IV fluid follow BP closely # AF - continue metoprolol for rate control - warfarin resumed, INR 2.2 continue current dose and follow PT INR closely # chronic HFpEF - appears euvolemic , BUN trending up with low blood pressure therefore will hold Bumex, continue metoprolol # hypoK - repleted, on potassium 40 mg follow BMP # hypoMg - repleted # anxiety - seen by Psychiatry follow the recommendation # psoriatic arthritis - on Lorcet 7.5/325, continue lidocaine patch , follow OT eval # VTE ppx: warfarin In my clinical judgment, the patient requires continued hospitalization for LTC placement, safe disposition Quality Stroke Does the patient have a stroke diagnosis?: No VTE Prior VTE?: No VTE Risk Level:: Medical - moderate - high VTE Device Contraindication: Treatment Not Indicated VTE Drug Contraindication: Treatment Not Indicated
[2022-03-06] MEDS: 0.9 % Sodium Chloride 1,000 ML 80 ML IVCONT (15:06)
[2022-03-06 15:27] VITALS: BP 114/63; PULSE 107; RESP 18; TEMP 37.3; O2SAT 95
[2022-03-06] MEDS: Warfarin Sodium 2 MG TABLET PO (17:24)
[2022-03-06 19:27] VITALS: BP 91/54; PULSE 101; RESP 17; TEMP 36.9; O2SAT 96
[2022-03-07] VITALS (8 sets, daily range): BP systolic 89–136; BP diastolic 52–67; PULSE 74–98; RESP 18–20; TEMP 36.2–36.8; O2SAT 93–99
[2022-03-07] MEDS: HYDROcodone Bit/Acetam 7.5/325 TABLET 1 TAB PO ×4 (04:26→21:27)
[2022-03-07 07:23] LABS: Anion Gap 14 (12-20); Blood Urea Nitrogen 34 mg/dL (9-16); Calcium 8.1 mg/dL (8.4-10.2); Carbon Dioxide 25 mmol/L (22-29); Chloride 107 mmol/L (96-108); Estimated Glomerular Filt Rate 52; Glucose Random 90 mg/dL (60-115); Potassium 4.8 mmol/L (3.3-5.1); Sodium 141 mmol/L (135-145)
[2022-03-07] MEDS: Potassium Chloride ER 20 MEQ TAB.ER.PRT 40 MEQ PO (09:10)
[2022-03-07] MEDS: QUEtiapine Fumarate 25 MG TABLET 12.5 MG PO (09:10)
[2022-03-07] MEDS: Lidocaine 4 % Patch ADH..PATCH 1 PATCH TRANSDERMA (09:10)
[2022-03-07] MEDS: 0.9 % Sodium Chloride Flush 3 ML SYRINGE IVFLUSH ×3 (09:10→21:31)
[2022-03-07] MEDS: Nystatin Powder 15 GM BOTTLE 1 APPL TOPICAL ×3 (09:11→21:30)
[2022-03-07] MEDS: Metoprolol Tartrate 25 MG TABLET PO (09:11)
[2022-03-07] MEDS: Escitalopram Oxalate 10 MG TABLET PO (09:11)
--- NOTE | 2022-03-07 11:21 | HO.PM.IMPN ---
Subjective Subjective Date of Service: 03/07/22 Interval History: No new complaints this morning complain of persistent foot pain, no bowel and bladder issues, BP improved after 1 L of fluid, no acute overnight events. Review of Systems [employer] no headache no dizziness CVS no chest pain, no palpitation Respiratory no shortness of breath, no cough Review of Systems: Yes all other systems are reviewed and are negative Physical Exam Vital Signs: Vital Signs: Last Vital Signs Temp 98.1 F 03/07/22 07:48 Pulse 92 03/07/22 07:48 Resp 18 03/07/22 07:48 BP 100/66 03/07/22 07:48 Pulse Ox 95 03/07/22 07:48 O2 Del Method 03/07/22 07:48 O2 Flow Rate 1 03/07/22 07:48 FiO2 99 02/22/22 03:47 BMI result Body Mass Index 28.9 Const: Other: Gen: in no acute distress Neck: supple Lungs: clear to auscultation bilaterally Heart: irregularly irregular, rate-controlled Abd: soft, non-tender, non-distended Ext:? significant deformities in joints of hands and feet Skin: warm/well-perfused Neuro: alert and oriented x3, no focal findings Psych: appropriate affect Objective Data Active Medications Acetaminophen (Acetaminophen 325 Mg Tablet) 650 mg PO Q6H PRN PRN Reason: Pain, Mild (Pain Scale 1-3) Last Admin: 03/05/22 14:39 Dose: 650 mg Documented By: SARAH Hydrocodone Bitart/Acetaminophen (Hydrocodone Bit/Acetam 7.5/325 Tablet) 1 tab PO Q6H PRN PRN Reason: Pain, Severe (Pain Scale 7-10) Last Admin: 03/07/22 09:11 Dose: 1 tab Documented By: ABIMAEL Bumetanide (Bumetanide 1 Mg Tablet) 2 mg PO DAILY [facility]; Protocol Last Admin: 03/05/22 08:53 Dose: 2 mg Documented By: GURPREET Escitalopram Oxalate (Escitalopram Oxalate 10 Mg Tablet) 10 mg PO DAILY [facility] Last Admin: 03/07/22 09:11 Dose: 10 mg Documented By: ABIMAEL Lidocaine (Lidocaine 4 % Patch Adh..Patch) 1 patch TRANSDERMA DAILY [facility]; Protocol Last Admin: 03/07/22 09:10 Dose: 1 patch Documented By: ABIMAEL Metoprolol Tartrate (Metoprolol Tartrate 25 Mg Tablet) 25 mg PO BID [facility]; Protocol Last Admin: 03/07/22 09:11 Dose: 25 mg Documented By: ABIMAEL Nystatin (Nystatin Powder 15 Gm Bottle) 1 appl TOPICAL TID [facility]; Protocol Last Admin: 03/07/22 09:11 Dose: 1 appl Documented By: ABIMAEL Ondansetron HCl (Ondansetron Hcl 4 Mg/2 Ml Vial) 4 mg IVPUSH Q8H PRN PRN Reason: Nausea and Vomiting Pharmacy Consult (Consult Rx Perform Med Rec) 1 each MISCELLANE ONCE PRN PRN Reason: Consult order Potassium Chloride (Potassium Chloride Er 20 Meq Tab.Er.Prt) 40 meq PO DAILY [facility] Last Admin: 03/07/22 09:10 Dose: 40 meq Documented By: ABIMAEL Quetiapine Fumarate (Quetiapine Fumarate 25 Mg Tablet) 12.5 mg PO BID PRN PRN Reason: anxiety, agitation Last Admin: 03/07/22 09:10 Dose: 12.5 mg Documented By: ABIMAEL Sodium Chloride (0.9 % Sodium Chloride Flush 3 Ml Syringe) 3 ml IVFLUSH QSHIFT [facility] Last Admin: 03/07/22 09:10 Dose: 3 ml Documented By: ABIMAEL Warfarin Sodium (Warfarin Sodium 2 Mg Tablet) 2 mg PO DAILY@1800 [facility] Last Admin: 03/06/22 17:24 Dose: 2 mg Documented By: ABIMAEL Labs CBC & Chem 7: 03/05/22 06:20 03/07/22 06:22 Labs: Laboratory Results - last 24 hr 03/07/22 06:22 Anion Gap 14 Estim Creat Clear Calc 48.0 Estimated GFR 52 Random Glucose 90 Calcium 8.1 L Assessment and Plan (1) Acute hypokalemia: Status: Acute (2) Gram-positive bacteremia: Status: Acute Plan 81yo F with AF (persistent?) + HFpEF, initially was awaiting for LTC placement but became hypotensive and had positive UA concerning for infection, though ultimately grew coag-neg staph from urine and blood determined to be contaminant # hypotension resolved BP improved status post IV fluids Bumex 2 mg by mouth daily resumed, previously was on 2 mg b.i.d. # AF - continue metoprolol for rate control - warfarin resumed, INR 2.2 continue current dose and follow PT INR closely # chronic HFpEF - appears euvolemic , continue Bumex 2 mg daily and continue metoprolol, dose of Bumex reduced from 2 mg b.i.d. due to low blood pressure and elevated BUN # hypoK - repleted, on potassium 40 mg follow BMP, potassium 4.8 # hypoMg - repleted # anxiety - seen by Psychiatry started on Lexapro 10 mg daily Seroquel discontinued and placed on Seroquel b.i.d. as needed # psoriatic arthritis - persistent foot pain on Lorcet 7.5/325, pain reoccurs after few hours of Lorcet therefore will change dose to Q 4h, continue lidocaine patch , follow OT eval # VTE ppx: warfarin In my clinical judgment, the patient requires continued hospitalization for LTC placement, safe disposition Quality Stroke Does the patient have a stroke diagnosis?: No VTE Prior VTE?: No VTE Risk Level:: Medical - moderate - high VTE Device Contraindication: Treatment Not Indicated VTE Drug Contraindication: Treatment Not Indicated
--- NOTE | 2022-03-07 11:27 | MHC.CM.BRN ---
[facility] has continued to update CM regarding [facility] application progress. CM awaits word that [facility] is in place, with goal of LTC placement.
--- NOTE | 2022-03-07 12:39 | MHC.CLN ---
F/U PO INTAKE 50%-100%; SLIGHTLY IMPROVED DIET RX: CARDIAC-APPROPRIATE SUPPLEMENT ENSURE BID IN PLACE TO PROMOTE WOUND HEALING PROVIDES 700 KCALS, 40 G PROTEIN CONTINUE TO MONITOR PO INTAKE CLOSELY
[2022-03-07] MEDS: Warfarin Sodium 2 MG TABLET PO (18:39)
[2022-03-08] VITALS (7 sets, daily range): BP systolic 88–123; BP diastolic 51–82; PULSE 80–99; RESP 14–20; TEMP 36.6–37.3; O2SAT 94–98
[2022-03-08] MEDS: HYDROcodone Bit/Acetam 7.5/325 TABLET 1 TAB PO ×4 (02:22→21:46)
[2022-03-08] MEDS: Metoprolol Tartrate 25 MG TABLET PO ×2 (09:13→19:55)
[2022-03-08] MEDS: Potassium Chloride ER 20 MEQ TAB.ER.PRT 40 MEQ PO (09:13)
[2022-03-08] MEDS: Escitalopram Oxalate 10 MG TABLET PO (09:13)
[2022-03-08] MEDS: Nystatin Powder 15 GM BOTTLE 1 APPL TOPICAL ×3 (09:14→19:55)
[2022-03-08] MEDS: Lidocaine 4 % Patch ADH..PATCH 1 PATCH TRANSDERMA (09:14)
[2022-03-08] MEDS: 0.9 % Sodium Chloride Flush 3 ML SYRINGE IVFLUSH ×3 (09:14→19:55)
--- NOTE | 2022-03-08 12:44 | HO.PM.IMPN ---
Subjective Subjective Date of Service: 03/08/22 Interval History: Feeling better this morning less foot pain no other acute issues overnight, denies fever chills admits to have chronically low blood pressure below 100 at baseline, denies lightheadedness or dizziness, no shortness of breath no PND, no orthopnea. Review of Systems Review of Systems: Yes all other systems are reviewed and are negative Physical Exam Vital Signs: Vital Signs: Last Vital Signs Temp 98.3 F 03/08/22 11:36 Pulse 80 03/08/22 11:36 Resp 16 03/08/22 11:36 BP 123/82 03/08/22 11:36 Pulse Ox 96 03/08/22 11:36 O2 Del Method 03/08/22 11:36 O2 Flow Rate 1 03/08/22 11:36 FiO2 99 02/22/22 03:47 BMI result Body Mass Index 28.9 Const: Other: Gen: in no acute d istress Neck: supp le Lungs: clear to auscultation bila terally Heart: irr egularly irregular , rate-controlled Abd: soft, non-ten car, non-distended Ext:? significant deformities in leonard ints of hands and feet Long toe nail s, left foot flexi on deformity of to es, small growth i n between 3rd and 4th dose question callus versus wart Skin: warm/well-p erfused Neuro: shellie rt and oriented x3 , no focal finding s Psych: appropria te affect Objective Data Active Medications Acetaminophen (Acetaminophen 325 Mg Tablet) 650 mg PO Q6H PRN PRN Reason: Pain, Mild (Pain Scale 1-3) Last Admin: 03/05/22 14:39 Dose: 650 mg Documented By: SARAH Hydrocodone Bitart/Acetaminophen (Hydrocodone Bit/Acetam 7.5/325 Tablet) 1 tab PO Q4H PRN PRN Reason: Pain, Severe (Pain Scale 7-10) Last Admin: 03/08/22 09:13 Dose: 1 tab Documented By: RODNEY Bumetanide (Bumetanide 1 Mg Tablet) 1 mg PO DAILY [facility]; Protocol Escitalopram Oxalate (Escitalopram Oxalate 10 Mg Tablet) 10 mg PO DAILY [facility] Last Admin: 03/08/22 09:13 Dose: 10 mg Documented By: RODNEY Lidocaine (Lidocaine 4 % Patch Adh..Patch) 1 patch TRANSDERMA DAILY [facility]; Protocol Last Admin: 03/08/22 09:14 Dose: 1 patch Documented By: RODNEY Metoprolol Tartrate (Metoprolol Tartrate 25 Mg Tablet) 25 mg PO BID [facility]; Protocol Last Admin: 03/08/22 09:13 Dose: 25 mg Documented By: RODNEY Nystatin (Nystatin Powder 15 Gm Bottle) 1 appl TOPICAL TID [facility]; Protocol Last Admin: 03/08/22 09:14 Dose: 1 appl Documented By: RODNEY Ondansetron HCl (Ondansetron Hcl 4 Mg/2 Ml Vial) 4 mg IVPUSH Q8H PRN PRN Reason: Nausea and Vomiting Pharmacy Consult (Consult Rx Perform Med Rec) 1 each MISCELLANE ONCE PRN PRN Reason: Consult order Potassium Chloride (Potassium Chloride Er 20 Meq Tab.Er.Prt) 40 meq PO DAILY [facility] Last Admin: 03/08/22 09:13 Dose: 40 meq Documented By: RODNEY Quetiapine Fumarate (Quetiapine Fumarate 25 Mg Tablet) 12.5 mg PO BID PRN PRN Reason: anxiety, agitation Last Admin: 03/07/22 09:10 Dose: 12.5 mg Documented By: ABIMAEL Sodium Chloride (0.9 % Sodium Chloride Flush 3 Ml Syringe) 3 ml IVFLUSH QSHIFT [facility] Last Admin: 03/08/22 09:14 Dose: 3 ml Documented By: RODNEY Warfarin Sodium (Warfarin Sodium 2 Mg Tablet) 2 mg PO DAILY@1800 [facility] Last Admin: 03/07/22 18:39 Dose: 2 mg Documented By: ABIMAEL Labs CBC & Chem 7: 03/05/22 06:20 03/07/22 06:22 Assessment and Plan (1) Acute hypokalemia: Status: Acute (2) Gram-positive bacteremia: Status: Acute Plan 81yo F with AF (persistent?) + HFpEF, initially was awaiting for LTC placement but became hypotensive and had positive UA concerning for infection, though ultimately grew coag-neg staph from urine and blood determined to be contaminant # hypotension seems chronic, on metoprolol 25 mg b.i.d. and Bumex 2 mg daily will reduce dose to 1 mg daily since appear dry. As per patient was on Bumex 2 mg twice daily for last 3 years was given a prescription of 3 mg twice daily PCP # AF - continue metoprolol for rate control - warfarin resumed, INR 2.2 continue current dose Coumadin 2 mg daily, and follow PT INR closely # chronic HFpEF - appears euvolemic /dry, lying flat with no symptoms of shortness of breath, no orthopnea, no PND will reduce dose of Bumex to 1 mg daily, follow clinical course Echo showed EF 60-65% dilated left atrium, indeterminate diastolic function no wall motion abnormality # hypoK - repleted, on potassium 40 mg follow BMP, potassium 4.8, follow potassium closely since dose of Bumex being gradually lowered # hypoMg - repleted # anxiety - seen by Psychiatry started on Lexapro 10 mg daily zoloftl discontinued and placed on Seroquel b.i.d. as needed # psoriatic arthritis - persistent foot pain on Lorcet 7.5/325 q.4 hours as needed, continue lidocaine patch , seen by PT they recommend long-term care since patient unable to return to living independently , since not appropriate for skilled therapy Patient is bed ridden for [address] patient on OxyContin 10 mg daily at bedtime to minimize use of as needed meds # VTE ppx: warfarin In my clinical judgment, the patient requires continued hospitalization for LTC placement, safe disposition Quality Stroke Does the patient have a stroke diagnosis?: No VTE Prior VTE?: No VTE Risk Level:: Medical - moderate - high VTE Device Contraindication: Treatment Not Indicated VTE Drug Contraindication: Treatment Not Indicated
[2022-03-08 14:39] LABS: INTERNATIONAL NORM RATIO 1.5 (0.9-1.1); Prothrombin Time 17.6 SEC (10.0-13.1)
[2022-03-08] MEDS: Warfarin Sodium 2.5 MG TABLET PO (18:33)
[2022-03-08] MEDS: oxyCODONE HCl ER 10 MG TAB.ER.12H PO (19:54)
[2022-03-08] MEDS: QUEtiapine Fumarate 25 MG TABLET 12.5 MG PO (20:43)
[2022-03-09] VITALS (8 sets, daily range): BP systolic 97–120; BP diastolic 53–75; PULSE 76–80; RESP 16–18; TEMP 36.3–36.8; O2SAT 91–98
[2022-03-09] MEDS: HYDROcodone Bit/Acetam 7.5/325 TABLET 1 TAB PO ×4 (03:41→21:33)
[2022-03-09 07:01] LABS: INTERNATIONAL NORM RATIO 1.6 (0.9-1.1); Prothrombin Time 18.2 SEC (10.0-13.1)
[2022-03-09 07:27] LABS: Anion Gap 12 (12-20); Blood Urea Nitrogen 28 mg/dL (9-16); Calcium 8.2 mg/dL (8.4-10.2); Carbon Dioxide 25 mmol/L (22-29); Chloride 109 mmol/L (96-108); Creatinine Clr Calc Pharmacy 53.9; Estimated Glomerular Filt Rate 60; Glucose Random 80 mg/dL (60-115); Potassium 4.9 mmol/L (3.3-5.1); Sodium 141 mmol/L (135-145)
[2022-03-09] MEDS: Metoprolol Tartrate 25 MG TABLET PO ×2 (09:10→21:32)
[2022-03-09] MEDS: 0.9 % Sodium Chloride Flush 3 ML SYRINGE IVFLUSH ×3 (09:10→21:33)
[2022-03-09] MEDS: Lidocaine 4 % Patch ADH..PATCH 1 PATCH TRANSDERMA (09:11)
[2022-03-09] MEDS: Bumetanide 1 MG TABLET PO (09:12)
[2022-03-09] MEDS: Escitalopram Oxalate 10 MG TABLET PO (09:12)
[2022-03-09] MEDS: Nystatin Powder 15 GM BOTTLE 1 APPL TOPICAL ×3 (09:20→21:39)
[2022-03-09] MEDS: Potassium Chloride ER 20 MEQ TAB.ER.PRT 40 MEQ PO (09:27)
--- NOTE | 2022-03-09 15:14 | HO.PM.IMPN ---
Subjective Subjective Date of Service: 03/09/22 Interval History: no acute issues overnight Review of Systems denies chest pain Denies fever chills Denies shortness of breath Denies nausea vomiting diarrhea Physical Exam Vital Signs: Vital Signs: Last Vital Signs Temp 98.3 F 03/09/22 12:00 Pulse 77 03/09/22 12:00 Resp 16 03/09/22 12:00 BP 98/53 L 03/09/22 12:00 Pulse Ox 96 03/09/22 12:00 O2 Del Method 03/09/22 12:00 O2 Flow Rate 2 03/09/22 12:00 FiO2 99 02/22/22 03:47 BMI result Body Mass Index 28.9 Const: Other: no acute issue Resp: Other: clear to auscultation bilaterally no rales rhonchi or wheezes Cardio: Other: no S4; positive S1-S2; no S3 murmurs rubs or gallops Extrem: Other: no edema bilateral Objective Data Active Medications Acetaminophen (Acetaminophen 325 Mg Tablet) 650 mg PO Q6H PRN PRN Reason: Pain, Mild (Pain Scale 1-3) Last Admin: 03/05/22 14:39 Dose: 650 mg Documented By: SARAH Hydrocodone Bitart/Acetaminophen (Hydrocodone Bit/Acetam 7.5/325 Tablet) 1 tab PO Q5H PRN PRN Reason: Pain, Severe (Pain Scale 7-10) Last Admin: 03/09/22 15:00 Dose: 1 tab Documented By: RODNEY Bumetanide (Bumetanide 1 Mg Tablet) 1 mg PO DAILY [facility]; Protocol Last Admin: 03/09/22 09:12 Dose: 1 mg Documented By: RODNEY Escitalopram Oxalate (Escitalopram Oxalate 10 Mg Tablet) 10 mg PO DAILY [facility] Last Admin: 03/09/22 09:12 Dose: 10 mg Documented By: RODNEY Lidocaine (Lidocaine 4 % Patch Adh..Patch) 1 patch TRANSDERMA DAILY [facility]; Protocol Last Admin: 03/09/22 09:11 Dose: 1 patch Documented By: RODNEY Metoprolol Tartrate (Metoprolol Tartrate 25 Mg Tablet) 25 mg PO BID [facility]; Protocol Last Admin: 03/09/22 09:10 Dose: 25 mg Documented By: RODNEY Nystatin (Nystatin Powder 15 Gm Bottle) 1 appl TOPICAL TID [facility]; Protocol Last Admin: 03/09/22 15:01 Dose: 1 appl Documented By: RODNEY Ondansetron HCl (Ondansetron Hcl 4 Mg/2 Ml Vial) 4 mg IVPUSH Q8H PRN PRN Reason: Nausea and Vomiting Oxycodone HCl (Oxycodone Hcl Er 10 Mg Tab.Er.12h) 10 mg PO BEDTIME [facility] Last Admin: 03/08/22 19:54 Dose: 10 mg Documented By: FABRIZIO Pharmacy Consult (Consult Rx Perform Med Rec) 1 each MISCELLANE ONCE PRN PRN Reason: Consult order Potassium Chloride (Potassium Chloride Er 20 Meq Tab.Er.Prt) 40 meq PO DAILY [facility] Last Admin: 03/09/22 09:27 Dose: 40 meq Documented By: RODNEY Quetiapine Fumarate (Quetiapine Fumarate 25 Mg Tablet) 12.5 mg PO BID PRN PRN Reason: anxiety, agitation Last Admin: 03/08/22 20:43 Dose: 12.5 mg Documented By: FABRIZIO Sodium Chloride (0.9 % Sodium Chloride Flush 3 Ml Syringe) 3 ml IVFLUSH QSHIFT [facility] Last Admin: 03/09/22 15:01 Dose: 3 ml Documented By: RODNEY Warfarin Sodium (Warfarin Sodium 2.5 Mg Tablet) 2.5 mg PO DAILY@1800 [facility] Last Admin: 03/08/22 18:33 Dose: 2.5 mg Documented By: RODNEY Labs CBC & Chem 7: 03/05/22 06:20 03/09/22 06:35 Labs: Laboratory Results - last 24 hr 03/09/22 03/09/22 06:35 06:35 PT 18.2 H INR 1.6 H Anion Gap 12 Estim Creat Clear Calc 53.9 Estimated GFR 60 Random Glucose 80 Calcium 8.2 L Assessment and Plan (1) Afib: Status: Acute (2) Chronic heart failure: Status: Acute Plan 81yo F with AF (persistent?) + HFpEF, initially was awaiting for LTC placement but became hypotensive and had positive UA concerning for infection, though ultimately grew coag-neg staph from urine and blood determined to be contaminant 1.Hypotension (chronic) -meds adjusted...follow clinically 2.Chronic AFib - acceptable rate control on beta blockade - warfarin resumed, INR 2.2 continue current dose Coumadin 2 mg daily- -PT/ INR daily 3.Chronic HFpEF - asymptomatic - continue current therapies 4.Psoriatic arthritis - Lorcet 7.5/325 q.4 hours as needed, -adjust as indicated VTE ppx: warfarin In my clinical judgment, the patient requires continued hospitalization for LTC placement, safe disposition Quality Stroke Does the patient have a stroke diagnosis?: No VTE Prior VTE?: No VTE Risk Level:: Medical - moderate - high VTE Device Contraindication: Treatment Not Indicated VTE Drug Contraindication: Treatment Not Indicated
[2022-03-09] MEDS: Warfarin Sodium 2.5 MG TABLET PO (18:51)
[2022-03-09] MEDS: oxyCODONE HCl ER 10 MG TAB.ER.12H PO (21:33)
[2022-03-09] MEDS: QUEtiapine Fumarate 25 MG TABLET 12.5 MG PO (21:33)
[2022-03-10 03:53] VITALS: BP 88/52; PULSE 68; RESP 20; TEMP 37; O2SAT 97
[2022-03-10 06:34] LABS: INTERNATIONAL NORM RATIO 1.7 (0.9-1.1); Prothrombin Time 19.7 SEC (10.0-13.1)
[2022-03-10 07:45] VITALS: BP 114/61; PULSE 71; RESP 16; TEMP 36.4; O2SAT 98
[2022-03-10] MEDS: Lidocaine 4 % Patch ADH..PATCH 1 PATCH TRANSDERMA (09:15)
[2022-03-10] MEDS: HYDROcodone Bit/Acetam 7.5/325 TABLET 1 TAB PO ×2 (09:15→18:28)
[2022-03-10] MEDS: Bumetanide 1 MG TABLET PO (09:16)
[2022-03-10] MEDS: Escitalopram Oxalate 10 MG TABLET PO (09:16)
[2022-03-10] MEDS: Potassium Chloride ER 20 MEQ TAB.ER.PRT 40 MEQ PO (09:16)
[2022-03-10] MEDS: 0.9 % Sodium Chloride Flush 3 ML SYRINGE IVFLUSH ×2 (09:17→21:14)
[2022-03-10] MEDS: Metoprolol Tartrate 25 MG TABLET PO ×2 (09:17→21:13)
[2022-03-10] MEDS: QUEtiapine Fumarate 25 MG TABLET 12.5 MG PO ×2 (09:17→21:12)
[2022-03-10] MEDS: Nystatin Powder 15 GM BOTTLE 1 APPL TOPICAL ×2 (09:35→21:11)
[2022-03-10 11:55] VITALS: BP 100/55; PULSE 84; RESP 16; TEMP 36.7; O2SAT 99
--- NOTE | 2022-03-10 12:33 | HO.PM.IMPN ---
Subjective Subjective Date of Service: 03/10/22 Interval History: no acute issues overnight Review of Systems denies chest pain Denies fever chills Denies shortness of breath Denies nausea vomiting diarrhea Physical Exam Vital Signs: Vital Signs: Last Vital Signs Temp 98.1 F 03/10/22 11:55 Pulse 84 03/10/22 11:55 Resp 16 03/10/22 11:55 BP 100/55 L 03/10/22 11:55 Pulse Ox 99 03/10/22 11:55 O2 Del Method 03/10/22 11:55 O2 Flow Rate 2 03/10/22 11:55 FiO2 99 02/22/22 03:47 BMI result Body Mass Index 28.9 Const: Other: no acute issue Resp: Other: clear to auscultation bilaterally no rales rhonchi or wheezes Cardio: Other: no S4; positive S1-S2; no S3 murmurs rubs or gallops Extrem: Other: no edema bilateral Objective Data Active Medications Acetaminophen (Acetaminophen 325 Mg Tablet) 650 mg PO Q6H PRN PRN Reason: Pain, Mild (Pain Scale 1-3) Last Admin: 03/05/22 14:39 Dose: 650 mg Documented By: SARAH Hydrocodone Bitart/Acetaminophen (Hydrocodone Bit/Acetam 7.5/325 Tablet) 1 tab PO Q5H PRN PRN Reason: Pain, Severe (Pain Scale 7-10) Last Admin: 03/10/22 09:15 Dose: 1 tab Documented By: JOHN Bumetanide (Bumetanide 1 Mg Tablet) 1 mg PO DAILY [facility]; Protocol Last Admin: 03/10/22 09:16 Dose: 1 mg Documented By: JOHN Escitalopram Oxalate (Escitalopram Oxalate 10 Mg Tablet) 10 mg PO DAILY [facility] Last Admin: 03/10/22 09:16 Dose: 10 mg Documented By: JOHN Lidocaine (Lidocaine 4 % Patch Adh..Patch) 1 patch TRANSDERMA DAILY [facility]; Protocol Last Admin: 03/10/22 09:15 Dose: 1 patch Documented By: JOHN Metoprolol Tartrate (Metoprolol Tartrate 25 Mg Tablet) 25 mg PO BID [facility]; Protocol Last Admin: 03/10/22 09:17 Dose: 25 mg Documented By: JOHN Nystatin (Nystatin Powder 15 Gm Bottle) 1 appl TOPICAL TID [facility]; Protocol Last Admin: 03/10/22 09:35 Dose: 1 appl Documented By: JOHN Ondansetron HCl (Ondansetron Hcl 4 Mg/2 Ml Vial) 4 mg IVPUSH Q8H PRN PRN Reason: Nausea and Vomiting Oxycodone HCl (Oxycodone Hcl Er 10 Mg Tab.Er.12h) 10 mg PO BEDTIME [facility] Last Admin: 03/09/22 21:33 Dose: 10 mg Documented By: ANTOIC Pharmacy Consult (Consult Rx Perform Med Rec) 1 each MISCELLANE ONCE PRN PRN Reason: Consult order Potassium Chloride (Potassium Chloride Er 20 Meq Tab.Er.Prt) 40 meq PO DAILY [facility] Last Admin: 03/10/22 09:16 Dose: 40 meq Documented By: JOHN Quetiapine Fumarate (Quetiapine Fumarate 25 Mg Tablet) 12.5 mg PO BID PRN PRN Reason: anxiety, agitation Last Admin: 03/10/22 09:17 Dose: 12.5 mg Documented By: JOHN Sodium Chloride (0.9 % Sodium Chloride Flush 3 Ml Syringe) 3 ml IVFLUSH QSHIFT [facility] Last Admin: 03/10/22 09:17 Dose: 3 ml Documented By: JOHN Warfarin Sodium (Warfarin Sodium 3 Mg Tablet) 3 mg PO DAILY@1800 [facility] Labs CBC & Chem 7: 03/05/22 06:20 03/09/22 06:35 Labs: Laboratory Results - last 24 hr 03/10/22 06:18 PT 19.7 H INR 1.7 H Assessment and Plan (1) Acute hypotension: Status: Acute (2) Chronic heart failure: Status: Acute (3) Afib: Status: Acute Plan 81yo F with AF (persistent?) + HFpEF, initially was awaiting for LTC placement but became hypotensive and had positive UA concerning for infection, though ultimately grew coag-neg staph from urine and blood determined to be contaminant 1.Hypotension (chronic) -meds adjusted...follow clinically 2.Chronic AFib - acceptable rate control on beta blockade - warfarin resumed, INR 1.7 Coumadin adjusted -PT/ INR daily 3.Chronic HFpEF - asymptomatic - continue current therapies 4.Psoriatic arthritis - Lorcet 7.5/325 q.4 hours as needed, -adjust as indicated VTE ppx: warfarin In my clinical judgment, the patient requires continued hospitalization for LTC placement, safe disposition Quality Stroke Does the patient have a stroke diagnosis?: No VTE Prior VTE?: No VTE Risk Level:: Medical - moderate - high VTE Device Contraindication: Treatment Not Indicated VTE Drug Contraindication: Treatment Not Indicated
[2022-03-10 16:00] VITALS: BP 91/54; PULSE 77; RESP 17; TEMP 37.2; O2SAT 98
[2022-03-10] MEDS: Warfarin Sodium 3 MG TABLET PO (17:34)
[2022-03-10 19:25] VITALS: BP 103/57; PULSE 85; RESP 18; TEMP 37; O2SAT 96
[2022-03-10] MEDS: oxyCODONE HCl ER 10 MG TAB.ER.12H PO (21:13)
[2022-03-11] MEDS: HYDROcodone Bit/Acetam 7.5/325 TABLET 1 TAB PO ×4 (02:03→20:21)
[2022-03-11 06:14] VITALS: BP 117/72; PULSE 85; RESP 18; TEMP 37.1; O2SAT 98
[2022-03-11 07:08] LABS: Prothrombin Time 23.5 SEC (10.0-13.1)
[2022-03-11] MEDS: Lidocaine 4 % Patch ADH..PATCH 1 PATCH TRANSDERMA (07:27)
[2022-03-11] MEDS: Bumetanide 1 MG TABLET PO (07:28)
[2022-03-11] MEDS: Escitalopram Oxalate 10 MG TABLET PO (07:28)
[2022-03-11] MEDS: Metoprolol Tartrate 25 MG TABLET PO ×2 (07:28→20:22)
[2022-03-11] MEDS: Potassium Chloride ER 20 MEQ TAB.ER.PRT 40 MEQ PO (07:28)
[2022-03-11 08:00] VITALS: BP 99/63; PULSE 82; RESP 20; TEMP 36.7; O2SAT 100
[2022-03-11] MEDS: Nystatin Powder 15 GM BOTTLE 1 APPL TOPICAL ×2 (10:14→20:25)
[2022-03-11 11:47] VITALS: BP 103/59; PULSE 83; RESP 20; TEMP 36.8; O2SAT 99
--- NOTE | 2022-03-11 13:38 | MHC.CLN ---
F/U PO INTAKE 75-100% DIET RX: CARDIAC-APPROPRIATE SUPPLEMENT ENSURE BID IN PLACE TO PROMOTE WOUND HEALING PROVIDES 700 KCALS, 40 G PROTEIN CONTINUE TO MONITOR PO INTAKE CLOSELY
[2022-03-11 15:47] VITALS: BP 112/59; PULSE 85; RESP 18; TEMP 37; O2SAT 93
--- NOTE | 2022-03-11 16:09 | HO.PM.IMPN ---
Subjective Subjective Date of Service: 03/11/22 Interval History: no acute issues overnight Review of Systems denies chest pain Denies fever chills Denies shortness of breath Denies nausea vomiting diarrhea Physical Exam Vital Signs: Vital Signs: Last Vital Signs Temp 98.6 F 03/11/22 15:47 Pulse 85 03/11/22 15:47 Resp 18 03/11/22 15:47 BP 112/59 L 03/11/22 15:47 Pulse Ox 93 03/11/22 15:47 O2 Del Method 03/11/22 15:47 O2 Flow Rate 2 03/11/22 11:47 FiO2 99 02/22/22 03:47 BMI result Body Mass Index 28.9 Const: Other: no acute issue Resp: Other: clear to auscultation bilaterally no rales rhonchi or wheezes Cardio: Other: no S4; positive S1-S2; no S3 murmurs rubs or gallops Extrem: Other: no edema bilateral Objective Data Active Medications Acetaminophen (Acetaminophen 325 Mg Tablet) 650 mg PO Q6H PRN PRN Reason: Pain, Mild (Pain Scale 1-3) Last Admin: 03/05/22 14:39 Dose: 650 mg Documented By: SARAH Hydrocodone Bitart/Acetaminophen (Hydrocodone Bit/Acetam 7.5/325 Tablet) 1 tab PO Q5H PRN PRN Reason: Pain, Severe (Pain Scale 7-10) Last Admin: 03/11/22 14:19 Dose: 1 tab Documented By: TASHA Bumetanide (Bumetanide 1 Mg Tablet) 1 mg PO DAILY [facility]; Protocol Last Admin: 03/11/22 07:28 Dose: 1 mg Documented By: TASHA Escitalopram Oxalate (Escitalopram Oxalate 10 Mg Tablet) 10 mg PO DAILY [facility] Last Admin: 03/11/22 07:28 Dose: 10 mg Documented By: TASHA Lidocaine (Lidocaine 4 % Patch Adh..Patch) 1 patch TRANSDERMA DAILY [facility]; Protocol Last Admin: 03/11/22 07:27 Dose: 1 patch Documented By: TASHA Metoprolol Tartrate (Metoprolol Tartrate 25 Mg Tablet) 25 mg PO BID [facility]; Protocol Last Admin: 03/11/22 07:28 Dose: 25 mg Documented By: TASHA Nystatin (Nystatin Powder 15 Gm Bottle) 1 appl TOPICAL TID [facility]; Protocol Last Admin: 03/11/22 10:14 Dose: 1 appl Documented By: TASHA Ondansetron HCl (Ondansetron Hcl 4 Mg/2 Ml Vial) 4 mg IVPUSH Q8H PRN PRN Reason: Nausea and Vomiting Oxycodone HCl (Oxycodone Hcl Er 10 Mg Tab.Er.12h) 10 mg PO BEDTIME [facility] Last Admin: 03/10/22 21:13 Dose: 10 mg Documented By: MARANDA Pharmacy Consult (Consult Rx Perform Med Rec) 1 each MISCELLANE ONCE PRN PRN Reason: Consult order Potassium Chloride (Potassium Chloride Er 20 Meq Tab.Er.Prt) 40 meq PO DAILY [facility] Last Admin: 03/11/22 07:28 Dose: 40 meq Documented By: TASHA Quetiapine Fumarate (Quetiapine Fumarate 25 Mg Tablet) 12.5 mg PO BID PRN PRN Reason: anxiety, agitation Last Admin: 03/10/22 21:12 Dose: 12.5 mg Documented By: MARANDA Sodium Chloride (0.9 % Sodium Chloride Flush 3 Ml Syringe) 3 ml IVFLUSH QSHIFT [facility] Last Admin: 03/11/22 09:09 Dose: Not Given Documented By: TASHA Non-Admin Reason: No Access Warfarin Sodium (Warfarin Sodium 3 Mg Tablet) 3 mg PO DAILY@1800 [facility] Last Admin: 03/10/22 17:34 Dose: 3 mg Documented By: JOHN Labs CBC & Chem 7: 03/05/22 06:20 03/09/22 06:35 Labs: Laboratory Results - last 24 hr 03/11/22 06:29 PT 23.5 H INR 2.0 H Assessment and Plan (1) Acute hypotension: Status: Acute (2) Afib: Status: Acute (3) Chronic heart failure: Status: Acute Plan 81yo F with AF (persistent?) + HFpEF, initially was awaiting for LTC placement but became hypotensive and had positive UA concerning for infection, though ultimately grew coag-neg staph from urine and blood determined to be contaminant 1.Hypotension (chronic) -meds adjusted...follow clinically 2.Chronic AFib - acceptable rate control on beta blockade - warfarin resumed, INR 1.7 Coumadin adjusted -PT/ INR daily 3.Chronic HFpEF - asymptomatic - continue current therapies 4.Psoriatic arthritis - Lorcet 7.5/325 q.4 hours as needed, -adjust as indicated VTE ppx: warfarin In my clinical judgment, the patient requires continued hospitalization for LTC placement, safe disposition Quality Stroke Does the patient have a stroke diagnosis?: No VTE Prior VTE?: No VTE Risk Level:: Medical - moderate - high VTE Device Contraindication: Treatment Not Indicated VTE Drug Contraindication: Treatment Not Indicated
[2022-03-11] MEDS: Warfarin Sodium 3 MG TABLET PO (18:07)
[2022-03-11 20:00] VITALS: BP 110/70; PULSE 91; RESP 18; TEMP 37; O2SAT 95
[2022-03-11] MEDS: QUEtiapine Fumarate 25 MG TABLET 12.5 MG PO (20:21)
[2022-03-11] MEDS: oxyCODONE HCl ER 10 MG TAB.ER.12H PO (20:21)
[2022-03-11] MEDS: 0.9 % Sodium Chloride Flush 3 ML SYRINGE IVFLUSH (20:23)
[2022-03-11 23:31] VITALS: BP 133/68; PULSE 83; RESP 18; TEMP 37.1; O2SAT 98
[2022-03-12] MEDS: HYDROcodone Bit/Acetam 7.5/325 TABLET 1 TAB PO (02:24)
[2022-03-12 03:31] VITALS: BP 118/76; PULSE 84; RESP 20; TEMP 37.1; O2SAT 96
[2022-03-12 06:57] LABS: INTERNATIONAL NORM RATIO 2.4 (0.9-1.1); Prothrombin Time 29.1 SEC (10.0-13.1)
[2022-03-12 07:31] VITALS: BP 104/55; PULSE 109; RESP 18; TEMP 36.7; O2SAT 98
[2022-03-12] MEDS: Lidocaine 4 % Patch ADH..PATCH 1 PATCH TRANSDERMA (08:04)
[2022-03-12] MEDS: Bumetanide 1 MG TABLET PO (08:04)
[2022-03-12] MEDS: Potassium Chloride ER 20 MEQ TAB.ER.PRT 40 MEQ PO (08:04)
[2022-03-12] MEDS: Escitalopram Oxalate 10 MG TABLET PO (08:04)
[2022-03-12] MEDS: Metoprolol Tartrate 25 MG TABLET PO ×2 (08:04→20:26)
[2022-03-12 10:29] VITALS: BP 96/58; PULSE 86; RESP 17; TEMP 5375; TEMP 9707; O2SAT 96
[2022-03-12] MEDS: Acetaminophen 325 MG TABLET 650 MG PO (10:40)
[2022-03-12] MEDS: Nystatin Powder 15 GM BOTTLE 1 APPL TOPICAL ×2 (10:41→20:29)
[2022-03-12 11:08] VITALS: BP 126/64; PULSE 92; RESP 18; TEMP 37.1; O2SAT 92
--- NOTE | 2022-03-12 13:13 | MHC.CLN ---
F/U PO INTAKE CONSISTENTLY 75-100% DIET RX: CARDIAC-APPROPRIATE SUPPLEMENT ENSURE BID IN PLACE TO PROMOTE WOUND HEALING PROVIDES 700 KCALS, 40 G PROTEIN (PT PREFERS [facility]) CONTINUE TO MONITOR PO INTAKE CLOSELY
--- NOTE | 2022-03-12 13:18 | MHC.CM.PN ---
[facility] [employer] continues to work with family toward completing the [employer] that Patient will need for the recommended LTC. CM will follow.
--- NOTE | 2022-03-12 14:12 | P.PNIM_ITS ---
Subjective Subjective Date of Service: 03/12/22 Interval History: no acute events overnight Review of Systems denies chest pain Denies fever chills Denies shortness of breath Denies nausea vomiting diarrhea Physical Exam Vital Signs: Vital Signs: Last Vital Signs Temp 98.7 F 03/12/22 11:08 Pulse 92 03/12/22 11:08 Resp 18 03/12/22 11:08 BP 126/64 03/12/22 11:08 Pulse Ox 92 03/12/22 11:08 O2 Del Method 03/12/22 11:08 O2 Flow Rate 2 03/11/22 11:47 FiO2 99 02/22/22 03:47 BMI result Body Mass Index 28.9 Const: Other: no acute issue Resp: Other: clear to auscultation bilaterally no rales rhonchi or wheezes Cardio: Other: no S4; positive S1-S2; no S3 murmurs rubs or gallops Extrem: Other: no edema bilateral Objective Data Active Medications Acetaminophen (Acetaminophen 325 Mg Tablet) 650 mg PO Q6H PRN PRN Reason: Pain, Mild (Pain Scale 1-3) Last Admin: 03/12/22 10:40 Dose: 650 mg Documented By: SARAH Hydrocodone Bitart/Acetaminophen (Hydrocodone Bit/Acetam 7.5/325 Tablet) 1 tab PO Q5H PRN PRN Reason: Pain, Severe (Pain Scale 7-10) Last Admin: 03/12/22 02:24 Dose: 1 tab Documented By: MARANDA Bumetanide (Bumetanide 1 Mg Tablet) 1 mg PO DAILY [facility]; Protocol Last Admin: 03/12/22 08:04 Dose: 1 mg Documented By: SARAH Escitalopram Oxalate (Escitalopram Oxalate 10 Mg Tablet) 10 mg PO DAILY [facility] Last Admin: 03/12/22 08:04 Dose: 10 mg Documented By: SARAH Lidocaine (Lidocaine 4 % Patch Adh..Patch) 1 patch TRANSDERMA DAILY [facility]; Protocol Last Admin: 03/12/22 08:04 Dose: 1 patch Documented By: SARAH Metoprolol Tartrate (Metoprolol Tartrate 25 Mg Tablet) 25 mg PO BID [facility]; Protocol Last Admin: 03/12/22 08:04 Dose: 25 mg Documented By: SARAH Nystatin (Nystatin Powder 15 Gm Bottle) 1 appl TOPICAL TID [facility]; Protocol Last Admin: 03/12/22 10:41 Dose: 1 appl Documented By: SARAH Ondansetron HCl (Ondansetron Hcl 4 Mg/2 Ml Vial) 4 mg IVPUSH Q8H PRN PRN Reason: Nausea and Vomiting Oxycodone HCl (Oxycodone Hcl Er 10 Mg Tab.Er.12h) 10 mg PO BEDTIME [facility] Last Admin: 03/11/22 20:21 Dose: 10 mg Documented By: MARANDA Pharmacy Consult (Consult Rx Perform Med Rec) 1 each MISCELLANE ONCE PRN PRN Reason: Consult order Potassium Chloride (Potassium Chloride Er 20 Meq Tab.Er.Prt) 40 meq PO DAILY [facility] Last Admin: 03/12/22 08:04 Dose: 40 meq Documented By: SARAH Quetiapine Fumarate (Quetiapine Fumarate 25 Mg Tablet) 12.5 mg PO BID PRN PRN Reason: anxiety, agitation Last Admin: 03/11/22 20:21 Dose: 12.5 mg Documented By: MARANDA Sodium Chloride (0.9 % Sodium Chloride Flush 3 Ml Syringe) 3 ml IVFLUSH QSHIFT [facility] Last Admin: 03/12/22 08:05 Dose: Not Given Documented By: SARAH Non-Admin Reason: No Access Warfarin Sodium (Warfarin Sodium 3 Mg Tablet) 3 mg PO DAILY@1800 [facility] Last Admin: 03/11/22 18:07 Dose: 3 mg Documented By: TASHA Labs CBC & Chem 7: 03/05/22 06:20 03/09/22 06:35 Labs: Laboratory Results - last 24 hr 03/12/22 05:58 PT 29.1 H INR 2.4 H Assessment and Plan (1) Acute hypotension: Status: Acute (2) Chronic atrial fibrillation: Status: Acute (3) Chronic heart failure: Status: Acute Plan 81yo F with AF (persistent?) + HFpEF, initially was awaiting for LTC placement but became hypotensive and had positive UA concerning for infection, though ultimately grew coag-neg staph from urine and blood determined to be contaminant 1.Hypotension (chronic) -meds adjusted...follow clinically 2.Chronic AFib - acceptable rate control on beta blockade - warfarin resumed, INR 2.4... no changes -PT/ INR daily 3.Chronic HFpEF - asymptomatic - continue current therapies 4.Psoriatic arthritis - Lorcet 7.5/325 q.4 hours as needed, -adjust as indicated VTE ppx: warfarin In my clinical judgment, the patient requires continued hospitalization for LTC placement, safe disposition Quality Stroke Does the patient have a stroke diagnosis?: No VTE Prior VTE?: No VTE Risk Level:: Medical - moderate - high VTE Device Contraindication: Treatment Not Indicated VTE Drug Contraindication: Treatment Not Indicated
[2022-03-12 15:42] VITALS: BP 133/82; PULSE 131; RESP 18; TEMP 36.7; O2SAT 93
[2022-03-12] MEDS: Warfarin Sodium 3 MG TABLET PO (17:18)
[2022-03-12] MEDS: QUEtiapine Fumarate 25 MG TABLET PO (17:19)
[2022-03-12 20:00] VITALS: BP 137/80; PULSE 96; RESP 18; TEMP 36.7; O2SAT 99
[2022-03-12] MEDS: oxyCODONE HCl ER 10 MG TAB.ER.12H PO (20:26)
[2022-03-12] MEDS: QUEtiapine Fumarate 25 MG TABLET 12.5 MG PO (20:30)
[2022-03-13] VITALS (7 sets, daily range): BP systolic 96–136; BP diastolic 58–83; PULSE 80–106; RESP 16–18; TEMP 36.3–36.9; O2SAT 92–99
[2022-03-13] MEDS: HYDROcodone Bit/Acetam 7.5/325 TABLET 1 TAB PO ×2 (02:53→11:31)
[2022-03-13 06:53] LABS: INTERNATIONAL NORM RATIO 3.2 (0.9-1.1); Prothrombin Time 38.6 SEC (10.0-13.1)
[2022-03-13] MEDS: Bumetanide 1 MG TABLET PO (11:30)
[2022-03-13] MEDS: Lidocaine 4 % Patch ADH..PATCH 1 PATCH TRANSDERMA (11:30)
[2022-03-13] MEDS: Nystatin Powder 15 GM BOTTLE 1 APPL TOPICAL ×2 (11:31→21:50)
[2022-03-13] MEDS: Escitalopram Oxalate 10 MG TABLET PO (11:31)
[2022-03-13] MEDS: Metoprolol Tartrate 25 MG TABLET PO ×2 (11:31→21:50)
[2022-03-13] MEDS: Potassium Chloride ER 20 MEQ TAB.ER.PRT 40 MEQ PO (11:31)
[2022-03-13] MEDS: 0.9 % Sodium Chloride Flush 3 ML SYRINGE IVFLUSH ×2 (11:41→21:52)
--- NOTE | 2022-03-13 14:15 | P.PNIM_ITS ---
Subjective Subjective Date of Service: 03/13/22 Interval History: No acute issues overnight Review of Systems denies chest pain Denies fever chills Denies shortness of breath Denies nausea vomiting diarrhea Physical Exam Vital Signs: Vital Signs: Last Vital Signs Temp 98.5 F 03/13/22 10:59 Pulse 80 03/13/22 10:59 Resp 18 03/13/22 10:59 BP 136/73 03/13/22 10:59 Pulse Ox 95 03/13/22 10:59 O2 Del Method 03/13/22 10:59 O2 Flow Rate 2 03/13/22 01:25 FiO2 99 02/22/22 03:47 BMI result Body Mass Index 28.9 Const: Other: no acute issue Resp: Other: clear to auscultation bilaterally no rales rhonchi or wheezes Cardio: Other: no S4; positive S1-S2; no S3 murmurs rubs or gallops Extrem: Other: no edema bilateral Objective Data Active Medications Acetaminophen (Acetaminophen 325 Mg Tablet) 650 mg PO Q6H PRN PRN Reason: Pain, Mild (Pain Scale 1-3) Last Admin: 03/12/22 10:40 Dose: 650 mg Documented By: SARAH Bumetanide (Bumetanide 1 Mg Tablet) 1 mg PO DAILY [facility]; Protocol Last Admin: 03/13/22 11:30 Dose: 1 mg Documented By: COLT Escitalopram Oxalate (Escitalopram Oxalate 10 Mg Tablet) 10 mg PO DAILY [facility] Last Admin: 03/13/22 11:31 Dose: 10 mg Documented By: COLT Lidocaine (Lidocaine 4 % Patch Adh..Patch) 1 patch TRANSDERMA DAILY [facility]; Protocol Last Admin: 03/13/22 11:30 Dose: 1 patch Documented By: COLT Metoprolol Tartrate (Metoprolol Tartrate 25 Mg Tablet) 25 mg PO BID [facility]; Protocol Last Admin: 03/13/22 11:31 Dose: 25 mg Documented By: COLT Nystatin (Nystatin Powder 15 Gm Bottle) 1 appl TOPICAL TID [facility]; Protocol Last Admin: 03/13/22 11:31 Dose: 1 appl Documented By: COLT Ondansetron HCl (Ondansetron Hcl 4 Mg/2 Ml Vial) 4 mg IVPUSH Q8H PRN PRN Reason: Nausea and Vomiting Oxycodone HCl (Oxycodone Hcl Er 10 Mg Tab.Er.12h) 10 mg PO BEDTIME [facility] Last Admin: 03/12/22 20:26 Dose: 10 mg Documented By: TIMOTHY Pharmacy Consult (Consult Rx Perform Med Rec) 1 each MISCELLANE ONCE PRN PRN Reason: Consult order Potassium Chloride (Potassium Chloride Er 20 Meq Tab.Er.Prt) 40 meq PO DAILY [facility] Last Admin: 03/13/22 11:31 Dose: 40 meq Documented By: COLT Quetiapine Fumarate (Quetiapine Fumarate 25 Mg Tablet) 12.5 mg PO BID PRN PRN Reason: anxiety, agitation Last Admin: 03/12/22 20:30 Dose: 12.5 mg Documented By: TIMOTHY Sodium Chloride (0.9 % Sodium Chloride Flush 3 Ml Syringe) 3 ml IVFLUSH QSHIFT [facility] Last Admin: 03/13/22 11:41 Dose: 3 ml Documented By: COLT Warfarin Sodium (Warfarin Sodium 3 Mg Tablet) 3 mg PO DAILY@1800 [facility] Last Admin: 03/12/22 17:18 Dose: 3 mg Documented By: SARAH Warfarin Sodium (Warfarin Sodium 0.5 Mg Halftab) 1.5 mg PO ONCE ONE Stop: 03/13/22 18:01 Labs CBC & Chem 7: 03/05/22 06:20 03/09/22 06:35 Labs: Laboratory Results - last 24 hr 03/13/22 05:50 PT 38.6 H INR 3.2 H Assessment and Plan (1) Acute hypotension: Status: Acute (2) Chronic atrial fibrillation: Status: Acute (3) Chronic heart failure: Status: Acute Plan 81yo F with AF (persistent?) + HFpEF, initially was awaiting for LTC placement but became hypotensive and had positive UA concerning for infection, though ultimately grew coag-neg staph from urine and blood determined to be contaminant 1.Hypotension (chronic) -meds adjusted...follow clinically 2.Chronic AFib - acceptable rate control on beta blockade - warfarin resumed, INR 2.4... no changes -PT/ INR daily 3.Chronic HFpEF - asymptomatic - continue current therapies 4.Psoriatic arthritis - Lorcet 7.5/325 q.4 hours as needed, -adjust as indicated VTE ppx: warfarin In my clinical judgment, the patient requires continued hospitalization for LTC placement, safe disposition Quality Stroke Does the patient have a stroke diagnosis?: No VTE Prior VTE?: No VTE Risk Level:: Medical - moderate - high VTE Device Contraindication: Treatment Not Indicated VTE Drug Contraindication: Treatment Not Indicated
--- NOTE | 2022-03-13 15:01 | MHC.CM.PN ---
CM met with Patient at bedside to updated her on the dc plan. Patient is in agreement with LTC and is aware that her Daughter is working with [facility] [employer] to secure a Payer/[facility] [employer] for LTC. CM will continue to follow.
[2022-03-13] MEDS: Warfarin Sodium 0.5 MG HALFTAB 1.5 MG PO (18:43)
[2022-03-13] MEDS: oxyCODONE HCl ER 10 MG TAB.ER.12H PO (21:49)
[2022-03-13] MEDS: polyethylene glycoL 3350 17 GM POWD.PACK PO (21:59)
[2022-03-13] MEDS: QUEtiapine Fumarate 25 MG TABLET 12.5 MG PO (22:43)
[2022-03-13] MEDS: HYDROcodone Bit/Acetam 5/325 TABLET 1 TAB PO (22:46)
[2022-03-14] MEDS: HYDROcodone Bit/Acetam 5/325 TABLET 1 TAB PO ×4 (06:26→22:47)
[2022-03-14 06:55] LABS: Prothrombin Time 23.9 SEC (10.0-13.1)
[2022-03-14 07:50] VITALS: BP 109/67; PULSE 90; RESP 20; TEMP 37; O2SAT 94
[2022-03-14] MEDS: Potassium Chloride ER 20 MEQ TAB.ER.PRT 40 MEQ PO (10:10)
[2022-03-14] MEDS: Lidocaine 4 % Patch ADH..PATCH 1 PATCH TRANSDERMA (10:10)
[2022-03-14] MEDS: Bumetanide 1 MG TABLET PO (10:10)
[2022-03-14] MEDS: Escitalopram Oxalate 10 MG TABLET PO (10:11)
[2022-03-14] MEDS: Nystatin Powder 15 GM BOTTLE 1 APPL TOPICAL ×2 (10:11→19:27)
[2022-03-14] MEDS: Metoprolol Tartrate 25 MG TABLET PO ×2 (10:11→19:26)
[2022-03-14 11:45] VITALS: BP 110/70; PULSE 90; RESP 20; TEMP 36.4; O2SAT 95
--- NOTE | 2022-03-14 11:49 | MHC.CLN ---
F/U PO INTAKE REMAINS CONSISTENTLY 75-100% DIET RX: CARDIAC-APPROPRIATE SUPPLEMENT ENSURE BID IN PLACE TO PROMOTE WOUND HEALING PROVIDES 700 KCALS, 40 G PROTEIN (PT PREFERS VANILLA) CONTINUE TO MONITOR PO INTAKE CLOSELY GOAL IMPROVED WOUND HEALING RD TO FOLLOW WEEKLY
--- NOTE | 2022-03-14 11:55 | MHC.CM.PN ---
PT AWAITING [facility] COVERAGE FOR LTC PLACEMENT
--- NOTE | 2022-03-14 14:16 | HO.PM.IMPN ---
Subjective Subjective Date of Service: 03/14/22 Interval History: No acute issues overnight Review of Systems denies chest pain Denies fever chills Denies shortness of breath Denies nausea vomiting diarrhea Physical Exam Vital Signs: Vital Signs: Last Vital Signs Temp 97.6 F 03/14/22 11:45 Pulse 90 03/14/22 11:45 Resp 20 03/14/22 11:45 BP 110/70 03/14/22 11:45 Pulse Ox 95 03/14/22 11:45 O2 Del Method 03/14/22 11:45 O2 Flow Rate 2 03/13/22 23:09 FiO2 99 02/22/22 03:47 BMI result Body Mass Index 28.9 Const: Other: no acute issue Resp: Other: clear to auscultation bilaterally no rales rhonchi or wheezes Cardio: Other: no S4; positive S1-S2; no S3 murmurs rubs or gallops Extrem: Other: no edema bilateral Objective Data Active Medications Acetaminophen (Acetaminophen 325 Mg Tablet) 650 mg PO Q6H PRN PRN Reason: Pain, Mild (Pain Scale 1-3) Last Admin: 03/12/22 10:40 Dose: 650 mg Documented By: SARAH Hydrocodone Bitart/Acetaminophen (Hydrocodone Bit/Acetam 5/325 Tablet) 1 tab PO Q4H PRN PRN Reason: Pain, Severe (Pain Scale 7-10) Last Admin: 03/14/22 13:17 Dose: 1 tab Documented By: TASHA Bumetanide (Bumetanide 1 Mg Tablet) 1 mg PO DAILY [facility]; Protocol Last Admin: 03/14/22 10:10 Dose: 1 mg Documented By: TASHA Escitalopram Oxalate (Escitalopram Oxalate 10 Mg Tablet) 10 mg PO DAILY [facility] Last Admin: 03/14/22 10:11 Dose: 10 mg Documented By: TASHA Lidocaine (Lidocaine 4 % Patch Adh..Patch) 1 patch TRANSDERMA DAILY [facility]; Protocol Last Admin: 03/14/22 10:10 Dose: 1 patch Documented By: TASHA Metoprolol Tartrate (Metoprolol Tartrate 25 Mg Tablet) 25 mg PO BID [facility]; Protocol Last Admin: 03/14/22 10:11 Dose: 25 mg Documented By: TASHA Nystatin (Nystatin Powder 15 Gm Bottle) 1 appl TOPICAL TID [facility]; Protocol Last Admin: 03/14/22 10:11 Dose: 1 appl Documented By: TASHA Ondansetron HCl (Ondansetron Hcl 4 Mg/2 Ml Vial) 4 mg IVPUSH Q8H PRN PRN Reason: Nausea and Vomiting Oxycodone HCl (Oxycodone Hcl Er 10 Mg Tab.Er.12h) 10 mg PO BEDTIME [facility] Last Admin: 03/13/22 21:49 Dose: 10 mg Documented By: FABRIZIO Pharmacy Consult (Consult Rx Perform Med Rec) 1 each MISCELLANE ONCE PRN PRN Reason: Consult order Polyethylene Glycol (Polyethylene Glycol 3350 17 Gm Powd.Pack) 17 gm PO DAILY PRN PRN Reason: constipation Last Admin: 03/13/22 21:59 Dose: 17 gm Documented By: FABRIZIO Potassium Chloride (Potassium Chloride Er 20 Meq Tab.Er.Prt) 40 meq PO DAILY [facility] Last Admin: 03/14/22 10:10 Dose: 40 meq Documented By: TASHA Quetiapine Fumarate (Quetiapine Fumarate 25 Mg Tablet) 12.5 mg PO BID PRN PRN Reason: anxiety, agitation Last Admin: 03/13/22 22:43 Dose: 12.5 mg Documented By: FABRIZIO Sodium Chloride (0.9 % Sodium Chloride Flush 3 Ml Syringe) 3 ml IVFLUSH QSHIFT [facility] Last Admin: 03/14/22 10:06 Dose: Not Given Documented By: TASHA Non-Admin Reason: No Access Warfarin Sodium (Warfarin Sodium 3 Mg Tablet) 3 mg PO DAILY@1800 [facility] Last Admin: 03/12/22 17:18 Dose: 3 mg Documented By: SARAH Labs CBC & Chem 7: 03/05/22 06:20 03/09/22 06:35 Labs: Laboratory Results - last 24 hr 03/14/22 05:58 PT 23.9 H INR 2.0 H Assessment and Plan (1) Acute hypotension: Status: Acute (2) Chronic atrial fibrillation: Status: Acute (3) Chronic heart failure: Status: Acute Plan 81yo F with AF (persistent?) + HFpEF, initially was awaiting for LTC placement but became hypotensive and had positive UA concerning for infection, though ultimately grew coag-neg staph from urine and blood determined to be contaminant 1.Hypotension (chronic) -meds adjusted...follow clinically 2.Chronic AFib - acceptable rate control on beta blockade - warfarin resumed, INR 2.4... no changes -PT/ INR daily 3.Chronic HFpEF - asymptomatic - continue current therapies 4.Psoriatic arthritis - Lorcet 7.5/325 q.4 hours as needed, -adjust as indicated VTE ppx: warfarin In my clinical judgment, the patient requires continued hospitalization for LTC placement, safe disposition Quality Stroke Does the patient have a stroke diagnosis?: No VTE Prior VTE?: No VTE Risk Level:: Medical - moderate - high VTE Device Contraindication: Treatment Not Indicated VTE Drug Contraindication: Treatment Not Indicated
[2022-03-14 16:00] VITALS: BP 124/74; PULSE 90; RESP 16; TEMP 36.6; O2SAT 91
[2022-03-14] MEDS: Warfarin Sodium 3 MG TABLET PO (18:18)
[2022-03-14 19:12] VITALS: BP 120/64; PULSE 102; RESP 20; TEMP 37.2; O2SAT 93
[2022-03-14] MEDS: oxyCODONE HCl ER 10 MG TAB.ER.12H PO (19:26)
[2022-03-14] MEDS: QUEtiapine Fumarate 25 MG TABLET 12.5 MG PO (22:47)
[2022-03-14 23:27] VITALS: BP 99/71; PULSE 89; RESP 20; TEMP 36.6; O2SAT 95
[2022-03-15] VITALS (7 sets, daily range): BP systolic 98–106; BP diastolic 54–69; PULSE 71–111; RESP 16–20; TEMP 36.3–36.9; O2SAT 91–96
[2022-03-15] MEDS: HYDROcodone Bit/Acetam 5/325 TABLET 1 TAB PO ×2 (06:30→11:30)
[2022-03-15 07:18] LABS: INTERNATIONAL NORM RATIO 1.9 (0.9-1.1); Prothrombin Time 22.3 SEC (10.0-13.1)
[2022-03-15] MEDS: Lidocaine 4 % Patch ADH..PATCH 1 PATCH TRANSDERMA (10:00)
[2022-03-15] MEDS: Nystatin Powder 15 GM BOTTLE 1 APPL TOPICAL ×3 (10:02→21:23)
[2022-03-15] MEDS: Potassium Chloride ER 20 MEQ TAB.ER.PRT 40 MEQ PO (10:02)
[2022-03-15] MEDS: Metoprolol Tartrate 25 MG TABLET PO ×2 (10:02→21:23)
[2022-03-15] MEDS: Escitalopram Oxalate 10 MG TABLET PO (10:02)
[2022-03-15] MEDS: Bumetanide 1 MG TABLET PO (10:03)
[2022-03-15] MEDS: 0.9 % Sodium Chloride Flush 3 ML SYRINGE IVFLUSH (10:03)
--- NOTE | 2022-03-15 12:24 | HO.PM.IMPN ---
Subjective Subjective Date of Service: 03/15/22 Interval History: no palpitations or lightheadedness Physical Exam Vital Signs: Vital Signs: Last Vital Signs Temp 97.3 F 03/15/22 08:00 Pulse 93 03/15/22 08:00 Resp 20 03/15/22 08:00 BP 106/69 03/15/22 08:00 Pulse Ox 93 03/15/22 08:00 O2 Del Method 03/15/22 08:00 O2 Flow Rate 2 03/13/22 23:09 FiO2 99 02/22/22 03:47 BMI result Body Mass Index 28.9 Gen: in no acute distress Lungs: clear to auscultation bilaterally Heart: irregularly irregular, rate-controlled Abd: soft, non-tender, non-distended Ext: deformities in joints of hands and feet Skin: warm/well-perfused Neuro: alert and oriented x3, no focal findings Psych: appropriate affect Objective Data Active Medications Acetaminophen (Acetaminophen 325 Mg Tablet) 650 mg PO Q6H PRN PRN Reason: Pain, Mild (Pain Scale 1-3) Last Admin: 03/12/22 10:40 Dose: 650 mg Documented By: SARAH Hydrocodone Bitart/Acetaminophen (Hydrocodone Bit/Acetam 5/325 Tablet) 1 tab PO Q4H PRN PRN Reason: Pain, Severe (Pain Scale 7-10) Last Admin: 03/15/22 11:30 Dose: 1 tab Documented By: RU Bumetanide (Bumetanide 1 Mg Tablet) 1 mg PO DAILY [facility]; Protocol Last Admin: 03/15/22 10:03 Dose: 1 mg Documented By: RU Escitalopram Oxalate (Escitalopram Oxalate 10 Mg Tablet) 10 mg PO DAILY [facility] Last Admin: 03/15/22 10:02 Dose: 10 mg Documented By: RU Lidocaine (Lidocaine 4 % Patch Adh..Patch) 1 patch TRANSDERMA DAILY [facility]; Protocol Last Admin: 03/15/22 10:00 Dose: 1 patch Documented By: RU Metoprolol Tartrate (Metoprolol Tartrate 25 Mg Tablet) 25 mg PO BID [facility]; Protocol Last Admin: 03/15/22 10:02 Dose: 25 mg Documented By: RU Nystatin (Nystatin Powder 15 Gm Bottle) 1 appl TOPICAL TID [facility]; Protocol Last Admin: 03/15/22 10:02 Dose: 1 appl Documented By: RU Ondansetron HCl (Ondansetron Hcl 4 Mg/2 Ml Vial) 4 mg IVPUSH Q8H PRN PRN Reason: Nausea and Vomiting Oxycodone HCl (Oxycodone Hcl Er 10 Mg Tab.Er.12h) 10 mg PO BEDTIME [facility] Last Admin: 03/14/22 19:26 Dose: 10 mg Documented By: LATHA Pharmacy Consult (Consult Rx Perform Med Rec) 1 each MISCELLANE ONCE PRN PRN Reason: Consult order Polyethylene Glycol (Polyethylene Glycol 3350 17 Gm Powd.Pack) 17 gm PO DAILY PRN PRN Reason: constipation Last Admin: 03/13/22 21:59 Dose: 17 gm Documented By: FABRIZIO Potassium Chloride (Potassium Chloride Er 20 Meq Tab.Er.Prt) 40 meq PO DAILY [facility] Last Admin: 03/15/22 10:02 Dose: 40 meq Documented By: RU Quetiapine Fumarate (Quetiapine Fumarate 25 Mg Tablet) 12.5 mg PO BID PRN PRN Reason: anxiety, agitation Last Admin: 03/14/22 22:47 Dose: 12.5 mg Documented By: LATHA Sodium Chloride (0.9 % Sodium Chloride Flush 3 Ml Syringe) 3 ml IVFLUSH QSHIFT [facility] Last Admin: 03/15/22 10:03 Dose: 3 ml Documented By: RU Warfarin Sodium (Warfarin Sodium 3 Mg Tablet) 3 mg PO DAILY@1800 [facility] Last Admin: 03/14/22 18:18 Dose: 3 mg Documented By: TASHA Labs CBC & Chem 7: 03/05/22 06:20 03/09/22 06:35 Labs: Laboratory Results - last 24 hr 03/15/22 06:01 PT 22.3 H INR 1.9 H Assessment and Plan (1) Chronic atrial fibrillation: Status: Acute Plan hospital d#24 81yo F with AF (persistent?) + HFpEF, initially was awaiting for LTC placement but became hypotensive and had positive UA concerning for infection, though ultimately grew coag-neg staph from urine and blood determined to be contaminant # hypotension - resolved after IV fluids, suspect hypovolemia, not sepsis, runs slightly low chronically # AF - continue metoprolol for rate control - warfarin; daily INR monitoring # chronic HFpEF - continue bumetanide, metoprolol # hypoK - repleted # hypoMg - repleted # anxiety - continue lorazepam # psoriatic arthritis - prn oxycodone, lidocaine patch # VTE ppx: warfarin In my clinical judgment, the patient requires continued hospitalization for the following reasons: LTC placement, safe disposition Quality Stroke Does the patient have a stroke diagnosis?: No VTE Prior VTE?: No VTE Risk Level:: Medical - moderate - high VTE Device Contraindication: Treatment Not Indicated VTE Drug Contraindication: Treatment Not Indicated
[2022-03-15] MEDS: QUEtiapine Fumarate 25 MG TABLET 12.5 MG PO (17:22)
[2022-03-15] MEDS: Warfarin Sodium 3 MG TABLET PO (17:23)
[2022-03-15] MEDS: oxyCODONE HCl Immed Release 5 MG TABLET 10 MG PO (18:31)
[2022-03-16] MEDS: HYDROcodone Bit/Acetam 5/325 TABLET 1 TAB PO ×4 (00:59→22:43)
[2022-03-16 03:38] VITALS: BP 110/60; PULSE 84; RESP 20; TEMP 37.1; O2SAT 95
[2022-03-16] MEDS: oxyCODONE HCl Immed Release 5 MG TABLET 10 MG PO ×2 (05:24→14:53)
[2022-03-16 06:52] LABS: INTERNATIONAL NORM RATIO 2.1 (0.9-1.1); Prothrombin Time 25.3 SEC (10.0-13.1)
[2022-03-16 07:24] VITALS: BP 94/58; PULSE 73; RESP 20; TEMP 36.4; O2SAT 93
[2022-03-16] MEDS: Lidocaine 4 % Patch ADH..PATCH 1 PATCH TRANSDERMA (10:31)
[2022-03-16] MEDS: Potassium Chloride ER 20 MEQ TAB.ER.PRT 40 MEQ PO (10:32)
[2022-03-16] MEDS: Metoprolol Tartrate 25 MG TABLET PO ×2 (10:32→21:34)
[2022-03-16] MEDS: Escitalopram Oxalate 10 MG TABLET PO (10:32)
[2022-03-16] MEDS: Bumetanide 1 MG TABLET PO (10:32)
[2022-03-16] MEDS: Nystatin Powder 15 GM BOTTLE 1 APPL TOPICAL ×3 (10:33→22:43)
[2022-03-16 11:42] VITALS: BP 120/64; PULSE 100; RESP 20; TEMP 36.9; O2SAT 96
--- NOTE | 2022-03-16 11:57 | P.PNIM_ITS ---
Subjective Subjective Date of Service: 03/16/22 Interval History: no new complaints no chest pain or palpitations Review of Systems Review of Systems: Yes all other systems are reviewed and are negative Physical Exam Vital Signs: Vital Signs: Last Vital Signs Temp 98.4 F 03/16/22 11:42 Pulse 100 03/16/22 11:42 Resp 20 03/16/22 11:42 BP 120/64 03/16/22 11:42 Pulse Ox 96 03/16/22 11:42 O2 Del Method 03/16/22 11:42 O2 Flow Rate 2 03/13/22 23:09 FiO2 99 02/22/22 03:47 BMI result Body Mass Index 28.9 Gen: in no acute distress Lungs: clear to auscultation bilaterally Heart: irregularly irregular, rate-controlled Abd: soft, non-tender, non-distended Ext: deformities in joints of hands and feet Skin: warm/well-perfused Neuro: alert and oriented x3, no focal findings Psych: appropriate affect Objective Data Active Medications Acetaminophen (Acetaminophen 325 Mg Tablet) 650 mg PO Q6H PRN PRN Reason: Pain, Mild (Pain Scale 1-3) Last Admin: 03/12/22 10:40 Dose: 650 mg Documented By: SARAH Hydrocodone Bitart/Acetaminophen (Hydrocodone Bit/Acetam 5/325 Tablet) 1 tab PO Q4H PRN PRN Reason: Pain, Severe (Pain Scale 7-10) Last Admin: 03/16/22 10:31 Dose: 1 tab Documented By: RU Bumetanide (Bumetanide 1 Mg Tablet) 1 mg PO DAILY [facility]; Protocol Last Admin: 03/16/22 10:32 Dose: 1 mg Documented By: RU Escitalopram Oxalate (Escitalopram Oxalate 10 Mg Tablet) 10 mg PO DAILY [facility] Last Admin: 03/16/22 10:32 Dose: 10 mg Documented By: RU Lidocaine (Lidocaine 4 % Patch Adh..Patch) 1 patch TRANSDERMA DAILY [facility]; Pro tocol Last Admin: 03/16/22 10:31 Dose: 1 patch Documented By: RU Metoprolol Tartrate (Metoprolol Tartrate 25 Mg Tablet) 25 mg PO BID [facility]; Protocol Last Admin: 03/16/22 10:32 Dose: 25 mg Documented By: RU Nystatin (Nystatin Powder 15 Gm Bottle) 1 appl TOPICAL TID [facility]; Protocol Last Admin: 03/16/22 10:33 Dose: 1 appl Documented By: RU Ondansetron HCl (Ondansetron Hcl 4 Mg/2 Ml Vial) 4 mg IVPUSH Q8H PRN PRN Reason: Nausea and Vomiting Oxycodone HCl (Oxycodone Hcl Immed Release 5 Mg Tablet) 10 mg PO Q8H PRN PRN Reason: severe pain Last Admin: 03/16/22 05:24 Dose: 10 mg Documented By: NIA Pharmacy Consult (Consult Rx Perform Med Rec) 1 each MISCELLANE ONCE PRN PRN Reason: Consult order Polyethylene Glycol (Polyethylene Glycol 3350 17 Gm Powd.Pack) 17 gm PO DAILY PRN PRN Reason: constipation Last Admin: 03/13/22 21:59 Dose: 17 gm Documented By: FABRIZIO Potassium Chloride (Potassium Chloride Er 20 Meq Tab.Er.Prt) 40 meq PO DAILY [facility] Last Admin: 03/16/22 10:32 Dose: 40 meq Documented By: RU Quetiapine Fumarate (Quetiapine Fumarate 25 Mg Tablet) 12.5 mg PO BID PRN PRN Reason: anxiety, agitation Last Admin: 03/15/22 17:22 Dose: 12.5 mg Documented By: RU Sodium Chloride (0.9 % Sodium Chloride Flush 3 Ml Syringe) 3 ml IVFLUSH QSHIFT [facility] Last Admin: 03/16/22 10:33 Dose: Not Given Documented By: RU Non-Admin Reason: No Access Warfarin Sodium (Warfarin Sodium 3 Mg Tablet) 3 mg PO DAILY@1800 [facility] Last Admin: 03/15/22 17:23 Dose: 3 mg Documented By: RU Labs CBC & Chem 7: 03/05/22 06:20 03/09/22 06:35 Labs: Laboratory Results - last 24 hr 03/16/22 06:01 PT 25.3 H INR 2.1 H Assessment and Plan (1) Chronic atrial fibrillation: Status: Acute Plan hospital d#24 81yo F with AF (persistent?) + HFpEF, initially was awaiting for LTC placement but became hypotensive and had positive UA concerning for infection, though ultimately grew coag-neg staph from urine and blood determined to be contaminant # hypotension - resolved after IV fluids, suspect hypovolemia, not sepsis, runs slightly low chronically # AF - continue metoprolol for rate control - warfarin; daily INR monitoring, therapeutic today # chronic HFpEF - continue bumetanide, metoprolol # hypoK - repleted # hypoMg - repleted # anxiety - continue lorazepam # psoriatic arthritis - prn oxycodone, lidocaine patch # VTE ppx: warfarin In my clinical judgment, the patient requires continued hospitalization for the following reasons: LTC placement, safe disposition Quality Stroke Does the patient have a stroke diagnosis?: No VTE Prior VTE?: No VTE Risk Level:: Medical - moderate - high VTE Device Contraindication: Treatment Not Indicated VTE Drug Contraindication: Treatment Not Indicated
[2022-03-16 16:00] VITALS: BP 135/65; PULSE 105; RESP 18; TEMP 36.7; O2SAT 93
[2022-03-16] MEDS: Warfarin Sodium 3 MG TABLET PO (17:22)
[2022-03-16] MEDS: QUEtiapine Fumarate 25 MG TABLET 12.5 MG PO (19:30)
[2022-03-16 20:00] VITALS: BP 115/72; PULSE 95; RESP 19; TEMP 36.6; O2SAT 95
[2022-03-16] MEDS: Acetaminophen 325 MG TABLET 650 MG PO (21:34)
[2022-03-17] VITALS (7 sets, daily range): BP systolic 89–118; BP diastolic 47–70; PULSE 69–96; RESP 16–20; TEMP 35.7–36.9; O2SAT 93–98
[2022-03-17] MEDS: HYDROcodone Bit/Acetam 5/325 TABLET 1 TAB PO ×4 (05:13→20:06)
[2022-03-17 06:21] LABS: INTERNATIONAL NORM RATIO 2.4 (0.9-1.1); Prothrombin Time 28.9 SEC (10.0-13.1)
[2022-03-17] MEDS: Bumetanide 1 MG TABLET PO (08:51)
[2022-03-17] MEDS: Potassium Chloride ER 20 MEQ TAB.ER.PRT 40 MEQ PO (08:51)
[2022-03-17] MEDS: Metoprolol Tartrate 25 MG TABLET PO (08:51)
[2022-03-17] MEDS: Escitalopram Oxalate 10 MG TABLET PO (08:51)
[2022-03-17] MEDS: Lidocaine 4 % Patch ADH..PATCH 1 PATCH TRANSDERMA (08:51)
[2022-03-17] MEDS: Nystatin Powder 15 GM BOTTLE 1 APPL TOPICAL ×3 (08:52→20:09)
--- NOTE | 2022-03-17 10:00 | P.PNIM_ITS ---
Subjective Subjective Date of Service: 03/17/22 Interval History: no palpitations no dyspnea Review of Systems Review of Systems: Yes all other systems are reviewed and are negative Physical Exam Vital Signs: Vital Signs: Last Vital Signs Temp 97.6 F 03/17/22 07:35 Pulse 82 03/17/22 07:35 Resp 19 03/17/22 07:35 BP 118/59 L 03/17/22 07:35 Pulse Ox 97 03/17/22 07:35 O2 Del Method 03/17/22 07:35 O2 Flow Rate 2 03/17/22 07:35 FiO2 99 02/22/22 03:47 BMI result Body Mass Index 28.9 Gen: in no acute distress Lungs: clear to auscultation bilaterally Heart: irregularly irregular, rate-controlled Abd: soft, non-tender, non-distended Ext: deformities in joints of hands and feet Skin: warm/well-perfused Neuro: alert and oriented x3, no focal findings Psych: appropriate affect Objective Data Active Medications Acetaminophen (Acetaminophen 325 Mg Tablet) 650 mg PO Q6H PRN PRN Reason: Pain, Mild (Pain Scale 1-3) Last Admin: 03/16/22 21:34 Dose: 650 mg Documented By: HOLLY Hydrocodone Bitart/Acetaminophen (Hydrocodone Bit/Acetam 5/325 Tablet) 1 tab PO Q4H PRN PRN Reason: Pain, Severe (Pain Scale 7-10) Last Admin: 03/17/22 05:13 Dose: 1 tab Documented By: RADHA Bumetanide (Bumetanide 1 Mg Tablet) 1 mg PO DAILY [facility]; Protocol Last Admin: 03/17/22 08:51 Dose: 1 mg Documented By: SHAN Escitalopram Oxalate (Escitalopram Oxalate 10 Mg Tablet) 10 mg PO DAILY [facility] Last Admin: 03/17/22 08:51 Dose: 10 mg Documented By: SHAN Lidocaine (Lidocaine 4 % Patch Adh..Patch) 1 patch TRANSDERMA DAILY [facility]; Protocol Last Admin: 03/17/22 08:51 Dose: 1 patch Documented By: SHAN Metoprolol Tartrate (Metoprolol Tartrate 25 Mg Tablet) 25 mg PO BID [facility]; Protocol Last Admin: 03/17/22 08:51 Dose: 25 mg Documented By: SHAN Nystatin (Nystatin Powder 15 Gm Bottle) 1 appl TOPICAL TID [facility]; Protocol Last Admin: 03/17/22 08:52 Dose: 1 appl Documented By: SHAN Ondansetron HCl (Ondansetron Hcl 4 Mg/2 Ml Vial) 4 mg IVPUSH Q8H PRN PRN Reason: Nausea and Vomiting Oxycodone HCl (Oxycodone Hcl Immed Release 5 Mg Tablet) 10 mg PO Q8H PRN PRN Reason: severe pain Last Admin: 03/16/22 14:53 Dose: 10 mg Documented By: RU Pharmacy Consult (Consult Rx Perform Med Rec) 1 each MISCELLANE ONCE PRN PRN Reason: Consult order Polyethylene Glycol (Polyethylene Glycol 3350 17 Gm Powd.Pack) 17 gm PO DAILY PRN PRN Reason: constipation Last Admin: 03/13/22 21:59 Dose: 17 gm Documented By: FABRIZIO Potassium Chloride (Potassium Chloride Er 20 Meq Tab.Er.Prt) 40 meq PO DAILY [facility] Last Admin: 03/17/22 08:51 Dose: 40 meq Documented By: SHAN Quetiapine Fumarate (Quetiapine Fumarate 25 Mg Tablet) 12.5 mg PO BID PRN PRN Reason: anxiety, agitation Last Admin: 03/16/22 19:30 Dose: 12.5 mg Documented By: MITCH Sodium Chloride (0.9 % Sodium Chloride Flush 3 Ml Syringe) 3 ml IVFLUSH QSHIFT [facility] Last Admin: 03/17/22 07:27 Dose: Not Given Documented By: SHAN Non-Admin Reason: No Access Warfarin Sodium (Warfarin Sodium 3 Mg Tablet) 3 mg PO DAILY@1800 [facility] Last Admin: 03/16/22 17:22 Dose: 3 mg Documented By: HOLLY Labs CBC & Chem 7: 03/05/22 06:20 03/09/22 06:35 Labs: Laboratory Results - last 24 hr 03/17/22 05:22 PT 28.9 H INR 2.4 H Assessment and Plan (1) Chronic atrial fibrillation: Status: Acute Plan hospital d#26 81yo F with AF + HFpEF, initially was awaiting for LTC placement but became hypotensive and had positive UA concerning for infection, though ultimately grew coag-neg staph from urine and blood determined to be contaminant # hypotension - resolved after IV fluids, suspect hypovolemia, not sepsis, runs slightly low chronically # persistent AF - continue metoprolol for rate control - warfarin; weekly INR monitoring, therapeutic today # chronic HFpEF - continue bumetanide, metoprolol # hypoK - repleted # hypoMg - repleted # anxiety - continue lorazepam # psoriatic arthritis - prn oxycodone, lidocaine patch # VTE ppx: warfarin In my clinical judgment, the patient requires continued hospitalization for the following reasons: LTC placement, safe disposition Quality Stroke Does the patient have a stroke diagnosis?: No VTE Prior VTE?: No VTE Risk Level:: Medical - moderate - high VTE Device Contraindication: Treatment Not Indicated VTE Drug Contraindication: Treatment Not Indicated
[2022-03-17] MEDS: oxyCODONE HCl Immed Release 5 MG TABLET 10 MG PO ×2 (12:32→21:07)
[2022-03-17] MEDS: polyethylene glycoL 3350 17 GM POWD.PACK PO (12:33)
[2022-03-17] MEDS: QUEtiapine Fumarate 25 MG TABLET 12.5 MG PO ×2 (12:37→21:07)
--- NOTE | 2022-03-17 12:52 | MHC.CM.PN ---
CONTINUE TO WAIT FOR [facility] FOR LTC PLACEMENT/SAFE DISPOSITION. DAUGHTER WORKING WITH [employer] [facility] [place] [employer]. CM WILL CONTINUE TO FOLLOW FOR D/C NEEDS.
[2022-03-17] MEDS: Warfarin Sodium 3 MG TABLET PO (18:08)
[2022-03-17] MEDS: Acetaminophen 325 MG TABLET 650 MG PO (18:08)
[2022-03-18] VITALS (7 sets, daily range): BP systolic 85–135; BP diastolic 52–85; PULSE 65–98; RESP 13–20; TEMP 36.1–36.9; O2SAT 95–98
[2022-03-18 06:03] LABS: INTERNATIONAL NORM RATIO 2.5 (0.9-1.1); Prothrombin Time 29.5 SEC (10.0-13.1)
[2022-03-18] MEDS: HYDROcodone Bit/Acetam 5/325 TABLET 1 TAB PO (07:38)
[2022-03-18] MEDS: Escitalopram Oxalate 10 MG TABLET PO (07:38)
[2022-03-18] MEDS: Potassium Chloride ER 20 MEQ TAB.ER.PRT 40 MEQ PO (07:38)
[2022-03-18] MEDS: Lidocaine 4 % Patch ADH..PATCH 1 PATCH TRANSDERMA (07:40)
[2022-03-18] MEDS: Nystatin Powder 15 GM BOTTLE 1 APPL TOPICAL ×3 (07:40→20:42)
[2022-03-18] MEDS: Metoprolol Tartrate 25 MG TABLET PO (09:48)
--- NOTE | 2022-03-18 10:23 | HO.PM.IMPN ---
Subjective Subjective Date of Service: 03/18/22 Interval History: BP a little low overnight a little lightheaded c/o joint pain Review of Systems Review of Systems: Yes all other systems are reviewed and are negative Physical Exam Vital Signs: Vital Signs: Last Vital Signs Temp 97.5 F 03/18/22 07:22 Pulse 98 03/18/22 07:22 Resp 20 03/18/22 07:22 BP 96/52 L 03/18/22 07:22 Pulse Ox 95 03/18/22 07:22 O2 Del Method 03/18/22 07:22 O2 Flow Rate 2 03/18/22 07:22 FiO2 99 02/22/22 03:47 BMI result Body Mass Index 28.9 Gen: in no acute distress Lungs: clear to auscultation bilaterally Heart: irregularly irregular, rate-controlled Abd: soft, non-tender, non-distended Ext: deformities in joints of hands and feet Skin: warm/well-perfused Neuro: alert and oriented x3, no focal findings Psych: appropriate affect Objective Data Active Medications Acetaminophen (Acetaminophen 325 Mg Tablet) 650 mg PO Q6H PRN PRN Reason: Pain, Mild (Pain Scale 1-3) Last Admin: 03/17/22 18:08 Dose: 650 mg Documented By: SHAN Hydrocodone Bitart/Acetaminophen (Hydrocodone Bit/Acetam 5/325 Tablet) 1 tab PO Q4H PRN PRN Reason: Pain, Severe (Pain Scale 7-10) Last Admin: 03/18/22 07:38 Dose: 1 tab Documented By: SHAN Bumetanide (Bumetanide 1 Mg Tablet) 1 mg PO DAILY [facility]; Protocol Last Admin: 03/18/22 09:49 Dose: Not Given Documented By: SHAN Non-Admin Reason: Physician Approved Escitalopram Oxalate (Escitalopram Oxalate 10 Mg Tablet) 10 mg PO DAILY [facility] Last Admin: 03/18/22 07:38 Dose: 10 mg Documented By: SHAN Lidocaine (Lidocaine 4 % Patch Adh..Patch) 1 patch TRANSDERMA DAILY [facility]; Protocol Last Admin: 03/18/22 07:40 Dose: 1 patch Documented By: SHAN Metoprolol Tartrate (Metoprolol Tartrate 25 Mg Tablet) 25 mg PO BID [facility]; Protocol Last Admin: 03/18/22 09:48 Dose: 25 mg Documented By: SHAN Nystatin (Nystatin Powder 15 Gm Bottle) 1 appl TOPICAL TID [facility]; Protocol Last Admin: 03/18/22 07:40 Dose: 1 appl Documented By: SHAN Ondansetron HCl (Ondansetron Hcl 4 Mg/2 Ml Vial) 4 mg IVPUSH Q8H PRN PRN Reason: Nausea and Vomiting Oxycodone HCl (Oxycodone Hcl Immed Release 5 Mg Tablet) 10 mg PO Q8H PRN PRN Reason: severe pain Last Admin: 03/17/22 21:07 Dose: 10 mg Documented By: MITCH Pharmacy Consult (Consult Rx Perform Med Rec) 1 each MISCELLANE ONCE PRN PRN Reason: Consult order Polyethylene Glycol (Polyethylene Glycol 3350 17 Gm Powd.Pack) 17 gm PO DAILY PRN PRN Reason: constipation Last Admin: 03/17/22 12:33 Dose: 17 gm Documented By: SHAN Potassium Chloride (Potassium Chloride Er 20 Meq Tab.Er.Prt) 40 meq PO DAILY [facility] Last Admin: 03/18/22 07:38 Dose: 40 meq Documented By: SHAN Quetiapine Fumarate (Quetiapine Fumarate 25 Mg Tablet) 12.5 mg PO BID PRN PRN Reason: anxiety, agitation Last Admin: 03/17/22 21:07 Dose: 12.5 mg Documented By: MITCH Sodium Chloride (0.9 % Sodium Chloride Flush 3 Ml Syringe) 3 ml IVFLUSH QSHIFT [facility] Last Admin: 03/18/22 07:17 Dose: Not Given Documented By: SHAN Non-Admin Reason: No Access Warfarin Sodium (Warfarin Sodium 3 Mg Tablet) 3 mg PO DAILY@1800 [facility] Last Admin: 03/17/22 18:08 Dose: 3 mg Documented By: SHAN Labs CBC & Chem 7: 03/05/22 06:20 03/09/22 06:35 Labs: Laboratory Results - last 24 hr 03/18/22 05:44 PT 29.5 H INR 2.5 H Assessment and Plan (1) Chronic atrial fibrillation: Status: Acute Plan hospital d#27 81yo F with AF + HFpEF, initially was awaiting for LTC placement but became hypotensive and had positive UA concerning for infection, though ultimately grew coag-neg staph from urine and blood determined to be contaminant # hypotension - will hold diuretic today and give 500 mL NS and recheck BP # persistent AF - continue metoprolol for rate control - warfarin; weekly INR monitoring, therapeutic today # chronic HFpEF - hold bumetanide, continue metoprolol # hypoK - repleted # hypoMg - repleted # anxiety - continue lorazepam # psoriatic arthritis - prn oxycodone, lidocaine patch # VTE ppx: warfarin In my clinical judgment, the patient requires continued hospitalization for the following reasons: LTC placement, safe disposition Quality Stroke Does the patient have a stroke diagnosis?: No VTE Prior VTE?: No VTE Risk Level:: Medical - moderate - high VTE Device Contraindication: Treatment Not Indicated VTE Drug Contraindication: Treatment Not Indicated
[2022-03-18] MEDS: 0.9 % Sodium Chloride 500 ML 250 ML IVCONT (10:59)
[2022-03-18] MEDS: oxyCODONE HCl Immed Release 5 MG TABLET 10 MG PO ×2 (11:47→20:42)
[2022-03-18] MEDS: QUEtiapine Fumarate 25 MG TABLET 12.5 MG PO ×2 (11:47→22:41)
--- NOTE | 2022-03-18 14:37 | MHC.CM.PN ---
PATIENT'S DAUGHTER REQUESTED TO SPEAK WITH CM... DAUGHTER CRYING AND SOUNDED FRUSTRATED WITH SITUATION. REPORTS ON ONE HAS CALLED HER TO GIVE HER AN UPDATE ON HER MOM. NURSE INFORMED HER HE HAS REACHED OUT TO THE MD FOLLOWING PATIENT AND HE WILL BE BY TO SPEAK WITH HER IN A FEW MINUTES. SHE REPORTS SHE HAS PROVIDED, SHERYL, FROM FINAN[employer] THE DOCUMENTATION FOR [employer]; HOWEVER, SHERYL IS ON VACATION THIS WEEK AND WON'T GET TO IT UNTIL NEXT WEEK. SHE REPORTS SHE IS OKAY WITH THAT. SHE WANTED TO TALK ABOUT EVERYTHING SHE HAS DONE FOR HER MOTHER, BEGAN TO CRY SHE CONTINUED TO SHARE FAMILY DYNAMICS. CM REASSURED HER MOM WAS IN GOOD HANDS. CM PROVIDED HER WITH TIME, UNDERSTANDING, AND EMPATHY.
[2022-03-18] MEDS: Acetaminophen 325 MG TABLET 650 MG PO ×2 (16:19→22:37)
[2022-03-18] MEDS: 0.9 % Sodium Chloride Flush 3 ML SYRINGE IVFLUSH (16:20)
[2022-03-18] MEDS: Warfarin Sodium 3 MG TABLET PO (17:30)
[2022-03-18] MEDS: Metoprolol Tartrate 12.5 MG HALFTAB PO (20:41)
[2022-03-19 04:00] VITALS: BP 125/60; PULSE 75; RESP 17; TEMP 36.7; O2SAT 97
[2022-03-19 06:20] LABS: Anion Gap 13 (12-20); Blood Urea Nitrogen 23 mg/dL (9-16); Carbon Dioxide 29 mmol/L (22-29); Chloride 106 mmol/L (96-108); Creatinine Clr Calc Pharmacy 53.3; Estimated Glomerular Filt Rate 59; Glucose Random 84 mg/dL (60-115); Potassium 5.8 mmol/L (3.3-5.1); Sodium 142 mmol/L (135-145)
[2022-03-19 07:12] VITALS: BP 98/50; PULSE 91; RESP 18; TEMP 36.8; O2SAT 97
[2022-03-19 09:37] LABS: INTERNATIONAL NORM RATIO 2.1 (0.9-1.1); Prothrombin Time 25.2 SEC (10.0-13.1)
--- NOTE | 2022-03-19 09:42 | P.PNIM_ITS ---
Subjective Subjective Date of Service: 03/19/22 Interval History: BP improved not lightheaded no chest pain no dyspnea anxious K slightly high at 5.8 Review of Systems Review of Systems: Yes all other systems are reviewed and are negative Physical Exam Vital Signs: Vital Signs: Last Vital Signs Temp 98.3 F 03/19/22 07:12 Pulse 91 03/19/22 07:12 Resp 18 03/19/22 07:12 BP 98/50 L 03/19/22 07:12 Pulse Ox 97 03/19/22 07:12 O2 Del Method 03/19/22 07:12 O2 Flow Rate 2 03/19/22 07:12 FiO2 99 02/22/22 03:47 BMI result Body Mass Index 28.9 Gen: in no acute distress Lungs: clear to auscultation bilaterally Heart: irregularly irregular, rate-controlled Abd: soft, non-tender, non-distended Ext: deformities in joints of hands and feet Skin: warm/well-perfused Neuro: alert and oriented x3, no focal findings Psych: appropriate affect Objective Data Active Medications Acetaminophen (Acetaminophen 325 Mg Tablet) 650 mg PO Q6H PRN PRN Reason: Pain, Mild (Pain Scale 1-3) Last Admin: 03/18/22 22:37 Dose: 650 mg Documented By: HOLLY Bumetanide (Bumetanide 1 Mg Tablet) 1 mg PO DAILY [facility]; Protocol Last Admin: 03/18/22 09:49 Dose: Not Given Documented By: SHAN Non-Admin Reason: Physician Approved Escitalopram Oxalate (Escitalopram Oxalate 10 Mg Tablet) 10 mg PO DAILY [facility] Last Admin: 03/18/22 07:38 Dose: 10 mg Documented By: SHAN Lidocaine (Lidocaine 4 % Patch Adh..Patch) 1 patch TRANSDERMA DAILY [facility]; Protocol Last Admin: 03/18/22 07:40 Dose: 1 patch Documented By: SHAN Metoprolol Tartrate (Metoprolol Tartrate 12.5 Mg Halftab) 12.5 mg PO BID [facility]; Protocol Last Admin: 03/18/22 20:41 Dose: 12.5 mg Documented By: HOLLY Nystatin (Nystatin Powder 15 Gm Bottle) 1 appl TOPICAL TID [facility]; Protocol Last Admin: 03/18/22 20:42 Dose: 1 appl Documented By: HOLLY Ondansetron HCl (Ondansetron Hcl 4 Mg/2 Ml Vial) 4 mg IVPUSH Q8H PRN PRN Reason: Nausea and Vomiting Oxycodone HCl (Oxycodone Hcl Immed Release 5 Mg Tablet) 10 mg PO Q6H PRN PRN Reason: severe pain Last Admin: 03/18/22 20:42 Dose: 10 mg Documented By: HOLLY Pharmacy Consult (Consult Rx Perform Med Rec) 1 each MISCELLANE ONCE PRN PRN Reason: Consult order Polyethylene Glycol (Polyethylene Glycol 3350 17 Gm Powd.Pack) 17 gm PO DAILY PRN PRN Reason: constipation Last Admin: 03/17/22 12:33 Dose: 17 gm Documented By: SHAN Potassium Chloride (Potassium Chloride Er 20 Meq Tab.Er.Prt) 40 meq PO DAILY [facility] Last Admin: 03/18/22 07:38 Dose: 40 meq Documented By: HSAN Quetiapine Fumarate (Quetiapine Fumarate 25 Mg Tablet) 12.5 mg PO BID PRN PRN Reason: anxiety, agitation Last Admin: 03/18/22 22:41 Dose: 12.5 mg Documented By: HOLLY Sodium Chloride (0.9 % Sodium Chloride Flush 3 Ml Syringe) 3 ml IVFLUSH QSHIFT [facility] Last Admin: 03/19/22 00:17 Dose: Not Given Documented By: NIA Non-Admin Reason: No Access Warfarin Sodium (Warfarin Sodium 3 Mg Tablet) 3 mg PO DAILY@1800 [facility] Last Admin: 03/18/22 17:30 Dose: 3 mg Documented By: JOSE LUIS Labs CBC & Chem 7: 03/05/22 06:20 03/19/22 05:19 Labs: Laboratory Results - last 24 hr 03/19/22 03/19/22 05:19 09:20 PT 25.2 H INR 2.1 H Anion Gap 13 Estim Creat Clear Calc 53.3 Estimated GFR 59 Random Glucose 84 Calcium 8.0 L Assessment and Plan (1) Chronic atrial fibrillation: Status: Acute Plan hospital d#28 81yo F with AF + HFpEF, initially was awaiting for LTC placement but became hypotensive and had positive UA concerning for infection, though ultimately grew coag-neg staph from urine and blood determined to be contaminant # hypotension - runs chronically slightly low, held diuretic yesterday and given 500 mL NS, resume diuretic today and monitor carefully # hyperK, mild [previously hypokalemic] - give 1 dose SZC + recheck BMP in AM; d/c K supplementation # persistent AF - continue metoprolol for rate control - warfarin; weekly INR monitoring, therapeutic today # chronic HFpEF - hold bumetanide, continue metoprolol # hypoMg - repleted # anxiety - continue lorazepam # psoriatic arthritis - prn oxycodone, lidocaine patch # VTE ppx: warfarin In my clinical judgment, the patient requires continued hospitalization for the following reasons: LTC placement, safe disposition Pt's daughter Haley updated at bedside yesterday Quality Stroke Does the patient have a stroke diagnosis?: No VTE Prior VTE?: No VTE Risk Level:: Medical - moderate - high VTE Device Contraindication: Treatment Not Indicated VTE Drug Contraindication: Treatment Not Indicated
[2022-03-19] MEDS: Sodium Zirconium Cyclosilicate 10 GM POWD.PACK PO (09:50)
[2022-03-19] MEDS: Escitalopram Oxalate 10 MG TABLET PO (09:51)
[2022-03-19] MEDS: Lidocaine 4 % Patch ADH..PATCH 1 PATCH TRANSDERMA (09:51)
[2022-03-19] MEDS: oxyCODONE HCl Immed Release 5 MG TABLET 10 MG PO ×2 (09:51→18:51)
[2022-03-19] MEDS: Bumetanide 1 MG TABLET PO (09:51)
[2022-03-19] MEDS: Metoprolol Tartrate 12.5 MG HALFTAB PO ×2 (09:51→21:40)
[2022-03-19] MEDS: 0.9 % Sodium Chloride Flush 3 ML SYRINGE IVFLUSH ×3 (09:52→23:38)
[2022-03-19] MEDS: Nystatin Powder 15 GM BOTTLE 1 APPL TOPICAL ×3 (10:03→21:41)
[2022-03-19 11:06] VITALS: BP 97/52; PULSE 94; RESP 18; TEMP 36.6; O2SAT 96
--- NOTE | 2022-03-19 11:57 | MHC.CLN ---
NUTRITION CONSULT CONSULT FOR SKIN ISSUE. STAGE II RIGHT BUTTOCK IDENTIFIED 03/19. STAGE II LEFT BUTTOCK IDENTIFIED 02/22. DIET=CARDIAC-APPROPRIATE SUPPLEMENT ENSURE BID IN PLACE TO PROMOTE WOUND HEALING. PROVIDES 700 KCALS, 40 G PROTEIN (PT PREFERS VANILLA). INTAKE AT MEALS VARIABLE, 25-100%. CONTINUE TO FOLLOW FOR INTAKE AND WOUND HEALING. RD TO FOLLOW WEEKLY.
--- NOTE | 2022-03-19 14:17 | MHC.CM.PN ---
Spoke with patient's daughter today who expressed concerns that she was not being called regularly by care team for updates. Informed daughter that @ this time patient is still her own person and the team will continue to discuss plan with patient. Daughter can be called n per request by patient. This automotive service writer spoke with Brandi Ayala in financial services, she is still awaiting paperwork from daughter for [employer] application and placed call to her today w/ reminders re: information needed.
[2022-03-19] MEDS: Acetaminophen 325 MG TABLET 650 MG PO (14:25)
[2022-03-19 16:00] VITALS: BP 107/65; PULSE 97; RESP 16; TEMP 36.9; O2SAT 97
[2022-03-19] MEDS: Warfarin Sodium 3 MG TABLET PO (18:12)
[2022-03-19 19:48] VITALS: BP 139/73; PULSE 96; RESP 18; TEMP 36.4; O2SAT 95
[2022-03-19 23:30] VITALS: BP 98/55; PULSE 95; RESP 20; TEMP 36.2; O2SAT 95
[2022-03-20] MEDS: oxyCODONE HCl Immed Release 5 MG TABLET 10 MG PO ×3 (02:13→22:26)
[2022-03-20 04:00] VITALS: BP 108/57; PULSE 94; RESP 16; TEMP 36.4; O2SAT 99
[2022-03-20 06:45] LABS: Anion Gap 11 (12-20); Blood Urea Nitrogen 23 mg/dL (9-16); Calcium 8.2 mg/dL (8.4-10.2); Carbon Dioxide 32 mmol/L (22-29); Chloride 103 mmol/L (96-108); Creatinine Clr Calc Pharmacy 59.8; Estimated Glomerular Filt Rate > 60; Glucose Random 103 mg/dL (60-115); Potassium 4.7 mmol/L (3.3-5.1); Sodium 141 mmol/L (135-145)
[2022-03-20 07:27] VITALS: BP 120/67; PULSE 109; RESP 18; TEMP 36.7; O2SAT 99
[2022-03-20 09:29] LABS: Prothrombin Time 23.8 SEC (10.0-13.1)
[2022-03-20] MEDS: Potassium Chloride ER 20 MEQ TAB.ER.PRT 40 MEQ PO (10:15)
[2022-03-20] MEDS: Lidocaine 4 % Patch ADH..PATCH 1 PATCH TRANSDERMA (10:16)
[2022-03-20] MEDS: Metoprolol Tartrate 12.5 MG HALFTAB PO ×2 (10:16→20:53)
[2022-03-20] MEDS: Bumetanide 1 MG TABLET PO (10:16)
[2022-03-20] MEDS: Escitalopram Oxalate 10 MG TABLET PO (10:16)
[2022-03-20] MEDS: 0.9 % Sodium Chloride Flush 3 ML SYRINGE IVFLUSH ×2 (10:17→20:54)
[2022-03-20] MEDS: Nystatin Powder 15 GM BOTTLE 1 APPL TOPICAL ×3 (10:26→20:53)
[2022-03-20 11:42] VITALS: BP 132/67; PULSE 106; RESP 18; TEMP 36.6; O2SAT 99
--- NOTE | 2022-03-20 13:52 | HO.PM.IMPN ---
Subjective Subjective Date of Service: 03/20/22 Interval History: No acute issues Review of Systems Denies chest pain Denies shortness of breath Denies nausea vomiting diarrhea Denies fever chills Physical Exam Vital Signs: Vital Signs: Last Vital Signs Temp 97.9 F 03/20/22 11:42 Pulse 106 H 03/20/22 11:42 Resp 18 03/20/22 11:42 BP 132/67 03/20/22 11:42 Pulse Ox 99 03/20/22 11:42 O2 Del Method 03/20/22 11:42 O2 Flow Rate 4 03/20/22 11:42 FiO2 99 02/22/22 03:47 BMI result Body Mass Index 28.9 Const: Other: no acute issue Resp: Other: clear to auscultation bilaterally no rales rhonchi or wheezes Cardio: Other: no S4; positive S1-S2; no S3 murmurs rubs or gallops Extrem: Other: no edema bilateral Objective Data Active Medications Acetaminophen (Acetaminophen 325 Mg Tablet) 650 mg PO Q6H PRN PRN Reason: Pain, Mild (Pain Scale 1-3) Last Admin: 03/19/22 14:25 Dose: 650 mg Documented By: SIERRA Bumetanide (Bumetanide 1 Mg Tablet) 1 mg PO DAILY [facility]; Protocol Last Admin: 03/20/22 10:16 Dose: 1 mg Documented By: JENNYFER Escitalopram Oxalate (Escitalopram Oxalate 10 Mg Tablet) 10 mg PO DAILY [facility] Last Admin: 03/20/22 10:16 Dose: 10 mg Documented By: JENNYFER Lidocaine (Lidocaine 4 % Patch Adh..Patch) 1 patch TRANSDERMA DAILY [facility]; Protocol Last Admin: 03/20/22 10:16 Dose: 1 patch Documented By: JENNYFER Metoprolol Tartrate (Metoprolol Tartrate 12.5 Mg Halftab) 12.5 mg PO BID [facility]; Protocol Last Admin: 03/20/22 10:16 Dose: 12.5 mg Documented By: JENNYFER Nystatin (Nystatin Powder 15 Gm Bottle) 1 appl TOPICAL TID [facility]; Protocol Last Admin: 03/20/22 10:26 Dose: 1 appl Documented By: JENNYFER Ondansetron HCl (Ondansetron Hcl 4 Mg/2 Ml Vial) 4 mg IVPUSH Q8H PRN PRN Reason: Nausea and Vomiting Oxycodone HCl (Oxycodone Hcl Immed Release 5 Mg Tablet) 10 mg PO Q6H PRN PRN Reason: severe pain Last Admin: 03/20/22 02:13 Dose: 10 mg Documented By: NIA Pharmacy Consult (Consult Rx Perform Med Rec) 1 each MISCELLANE ONCE PRN PRN Reason: Consult order Polyethylene Glycol (Polyethylene Glycol 3350 17 Gm Powd.Pack) 17 gm PO DAILY PRN PRN Reason: constipation Last Admin: 03/17/22 12:33 Dose: 17 gm Documented By: SHAN Potassium Chloride (Potassium Chloride Er 20 Meq Tab.Er.Prt) 40 meq PO DAILY [facility] Last Admin: 03/20/22 10:15 Dose: 40 meq Documented By: JENNYFER Quetiapine Fumarate (Quetiapine Fumarate 25 Mg Tablet) 12.5 mg PO BID PRN PRN Reason: anxiety, agitation Last Admin: 03/18/22 22:41 Dose: 12.5 mg Documented By: HOLLY Sodium Chloride (0.9 % Sodium Chloride Flush 3 Ml Syringe) 3 ml IVFLUSH QSHIFT [facility] Last Admin: 03/20/22 10:17 Dose: 3 ml Documented By: JENNYFER Warfarin Sodium (Warfarin Sodium 3 Mg Tablet) 3 mg PO DAILY@1800 [facility] Last Admin: 03/19/22 18:12 Dose: 3 mg Documented By: CHAN Labs CBC & Chem 7: 03/05/22 06:20 03/20/22 05:27 Labs: Laboratory Results - last 24 hr 03/20/22 03/20/22 05:27 07:51 PT 23.8 H INR 2.0 H Anion Gap 11 L Estim Creat Clear Calc 59.8 Estimated GFR > 60 Random Glucose 103 Calcium 8.2 L Assessment and Plan (1) Acute hypotension: Status: Acute (2) Chronic atrial fibrillation: Status: Acute (3) Chronic heart failure: Status: Acute Plan 81yo F with AF (persistent?) + HFpEF, initially was awaiting for LTC placement but became hypotensive and had positive UA concerning for infection, though ultimately grew coag-neg staph from urine and blood determined to be contaminant 1.Hypotension (chronic) -meds adjusted...follow clinically 2.Chronic AFib - acceptable rate control on beta blockade - warfarin resumed, INR 2.4... no changes -PT/ INR daily 3.Chronic HFpEF - asymptomatic - continue current therapies 4.Psoriatic arthritis - Lorcet 7.5/325 q.4 hours as needed, -adjust as indicated VTE ppx: warfarin In my clinical judgment, the patient requires continued hospitalization for LTC placement, safe disposition Quality Stroke Does the patient have a stroke diagnosis?: No VTE Prior VTE?: No VTE Risk Level:: Medical - moderate - high VTE Device Contraindication: Treatment Not Indicated VTE Drug Contraindication: Treatment Not Indicated
[2022-03-20 15:22] VITALS: BP 101/61; PULSE 94; RESP 15; TEMP 36.4; O2SAT 98
[2022-03-20] MEDS: Warfarin Sodium 3 MG TABLET PO (18:22)
[2022-03-20 19:38] VITALS: BP 97/53; PULSE 99; RESP 16; TEMP 36.1; O2SAT 100
[2022-03-20] MEDS: Acetaminophen 325 MG TABLET 650 MG PO (22:25)
[2022-03-20 23:37] VITALS: BP 98/51; PULSE 88; RESP 18; TEMP 36.4; O2SAT 94
[2022-03-21] VITALS (8 sets, daily range): BP systolic 88–171; BP diastolic 52–87; PULSE 88–114; RESP 16–19; TEMP 36.1–36.6; O2SAT 91–99
[2022-03-21 06:30] LABS: INTERNATIONAL NORM RATIO 2.3 (0.9-1.1); Prothrombin Time 27.7 SEC (10.0-13.1)
[2022-03-21] MEDS: oxyCODONE HCl Immed Release 5 MG TABLET 10 MG PO ×3 (09:09→23:26)
[2022-03-21] MEDS: Potassium Chloride ER 20 MEQ TAB.ER.PRT 40 MEQ PO (09:10)
[2022-03-21] MEDS: Lidocaine 4 % Patch ADH..PATCH 1 PATCH TRANSDERMA (09:10)
[2022-03-21] MEDS: Metoprolol Tartrate 12.5 MG HALFTAB PO (09:10)
[2022-03-21] MEDS: Bumetanide 1 MG TABLET PO (09:10)
[2022-03-21] MEDS: Acetaminophen 325 MG TABLET 650 MG PO ×2 (09:10→15:59)
[2022-03-21] MEDS: Escitalopram Oxalate 10 MG TABLET PO (09:11)
[2022-03-21] MEDS: Nystatin Powder 15 GM BOTTLE 1 APPL TOPICAL ×2 (09:11→21:33)
[2022-03-21] MEDS: 0.9 % Sodium Chloride Flush 3 ML SYRINGE IVFLUSH (09:11)
--- NOTE | 2022-03-21 11:34 | HO.PM.IMPN ---
Subjective Subjective Date of Service: 03/21/22 Interval History: No acute issues overnight Review of Systems Denies chest pain Denies shortness of breath Denies nausea vomiting diarrhea Denies fever chills Physical Exam Vital Signs: Vital Signs: Last Vital Signs Temp 97.0 F 03/21/22 08:00 Pulse 88 03/21/22 09:30 Resp 18 03/21/22 08:00 BP 122/61 03/21/22 09:30 Pulse Ox 99 03/21/22 08:00 O2 Del Method Nasal Cannula 03/21/22 08:00 O2 Flow Rate 4 03/20/22 23:37 FiO2 99 02/22/22 03:47 BMI result Body Mass Index 28.9 Const: Other: no acute issue Resp: Other: clear to auscultation bilaterally no rales rhonchi or wheezes Cardio: Other: no S4; positive S1-S2; no S3 murmurs rubs or gallops Extrem: Other: no edema bilateral Objective Data Active Medications Acetaminophen (Acetaminophen 325 Mg Tablet) 650 mg PO Q6H PRN PRN Reason: Pain, Mild (Pain Scale 1-3) Last Admin: 03/21/22 09:10 Dose: 650 mg Documented By: SIERRA Bumetanide (Bumetanide 1 Mg Tablet) 1 mg PO DAILY [facility]; Protocol Last Admin: 03/21/22 09:10 Dose: 1 mg Documented By: SIERRA Escitalopram Oxalate (Escitalopram Oxalate 10 Mg Tablet) 10 mg PO DAILY [facility] Last Admin: 03/21/22 09:11 Dose: 10 mg Documented By: SIERRA Lidocaine (Lidocaine 4 % Patch Adh..Patch) 1 patch TRANSDERMA DAILY [facility]; Protocol Last Admin: 03/21/22 09:10 Dose: 1 patch Documented By: SIERRA Metoprolol Tartrate (Metoprolol Tartrate 12.5 Mg Halftab) 12.5 mg PO BID [facility]; Protocol Last Admin: 03/21/22 09:10 Dose: 12.5 mg Documented By: SIERRA Nystatin (Nystatin Powder 15 Gm Bottle) 1 appl TOPICAL TID [facility]; Protocol Last Admin: 03/21/22 09:11 Dose: 1 appl Documented By: SIERRA Ondansetron HCl (Ondansetron Hcl 4 Mg/2 Ml Vial) 4 mg IVPUSH Q8H PRN PRN Reason: Nausea and Vomiting Oxycodone HCl (Oxycodone Hcl Immed Release 5 Mg Tablet) 10 mg PO Q6H PRN PRN Reason: severe pain Last Admin: 03/21/22 09:09 Dose: 10 mg Documented By: SIERRA Pharmacy Consult (Consult Rx Perform Med Rec) 1 each MISCELLANE ONCE PRN PRN Reason: Consult order Polyethylene Glycol (Polyethylene Glycol 3350 17 Gm Powd.Pack) 17 gm PO DAILY PRN PRN Reason: constipation Last Admin: 03/17/22 12:33 Dose: 17 gm Documented By: SHAN Potassium Chloride (Potassium Chloride Er 20 Meq Tab.Er.Prt) 40 meq PO DAILY [facility] Last Admin: 03/21/22 09:10 Dose: 40 meq Documented By: SIERRA Quetiapine Fumarate (Quetiapine Fumarate 25 Mg Tablet) 12.5 mg PO BID PRN PRN Reason: anxiety, agitation Last Admin: 03/18/22 22:41 Dose: 12.5 mg Documented By: HOLLY Sodium Chloride (0.9 % Sodium Chloride Flush 3 Ml Syringe) 3 ml IVFLUSH QSHIFT [facility] Last Admin: 03/21/22 09:11 Dose: 3 ml Documented By: SIERRA Warfarin Sodium (Warfarin Sodium 3 Mg Tablet) 3 mg PO DAILY@1800 [facility] Last Admin: 03/20/22 18:22 Dose: 3 mg Documented By: CHAN Labs CBC & Chem 7: 03/05/22 06:20 03/20/22 05:27 Labs: Laboratory Results - last 24 hr 03/21/22 05:25 PT 27.7 H INR 2.3 H Assessment and Plan (1) Chronic atrial fibrillation: Status: Acute (2) Chronic heart failure: Status: Acute (3) Psoriatic arthritis: Status: Acute Plan 81yo F with AF (persistent?) + HFpEF, initially was awaiting for LTC placement but became hypotensive and had positive UA concerning for infection, though ultimately grew coag-neg staph from urine and blood determined to be contaminant 1Chronic AFib -acceptable rate control on beta blockade -warfarin resumed, INR 2.3... no changes -PT/ INR daily 2.Chronic HFpEF - asymptomatic - continue current therapies 4.Psoriatic arthritis - Lorcet 7.5/325 q.4 hours as needed, -adjust as indicated VTE ppx: warfarin In my clinical judgment, the patient requires continued hospitalization for LTC placement, safe disposition Quality Stroke Does the patient have a stroke diagnosis?: No VTE Prior VTE?: No VTE Risk Level:: Medical - moderate - high VTE Device Contraindication: Treatment Not Indicated VTE Drug Contraindication: Treatment Not Indicated
[2022-03-21] MEDS: Warfarin Sodium 3 MG TABLET PO (18:29)
[2022-03-22 03:48] VITALS: BP 102/56; PULSE 107; RESP 17; TEMP 36.1; O2SAT 97
[2022-03-22 06:18] LABS: INTERNATIONAL NORM RATIO 2.8 (0.9-1.1)
[2022-03-22 07:45] VITALS: BP 124/72; PULSE 97; RESP 18; TEMP 36.6; O2SAT 99
--- NOTE | 2022-03-22 07:48 | P.PNIM_ITS ---
Subjective Subjective Date of Service: 03/22/22 Interval History: No acute issues overnight Review of Systems Denies chest pain Denies shortness of breath Denies nausea vomiting diarrhea Denies fever chills Physical Exam Vital Signs: Vital Signs: Last Vital Signs Temp 98 F 03/22/22 07:45 Pulse 97 03/22/22 07:45 Resp 18 03/22/22 07:45 BP 124/72 03/22/22 07:45 Pulse Ox 99 03/22/22 07:45 O2 Del Method 03/22/22 07:45 O2 Flow Rate 2 03/22/22 07:45 FiO2 99 02/22/22 03:47 BMI result Body Mass Index 28.9 Const: Other: no acute issue Resp: Other: clear to auscultation bilaterally no rales rhonchi or wheezes Cardio: Other: no S4; positive S1-S2; no S3 murmurs rubs or gallops Extrem: Other: no edema bilateral Objective Data Active Medications Acetaminophen (Acetaminophen 325 Mg Tablet) 650 mg PO Q6H PRN PRN Reason: Pain, Mild (Pain Scale 1-3) Last Admin: 03/21/22 15:59 Dose: 650 mg Documented By: HOLLY Bumetanide (Bumetanide 1 Mg Tablet) 1 mg PO DAILY [facility]; Protocol Last Admin: 03/21/22 09:10 Dose: 1 mg Documented By: SIERRA Escitalopram Oxalate (Escitalopram Oxalate 10 Mg Tablet) 10 mg PO DAILY [facility] Last Admin: 03/21/22 09:11 Dose: 10 mg Documented By: SIERRA Lidocaine (Lidocaine 4 % Patch Adh..Patch) 1 patch TRANSDERMA DAILY [facility]; Protocol Last Admin: 03/21/22 09:10 Dose: 1 patch Documented By: SIERRA Metoprolol Tartrate (Metoprolol Tartrate 12.5 Mg Halftab) 12.5 mg PO BID [facility]; Protocol Last Admin: 03/21/22 21:40 Dose: Not Given Documented By: HOLLY Non-Admin Reason: BP 92/54 pulse 91,hold per dr. Bledsoe Nystatin (Nystatin Powder 15 Gm Bottle) 1 appl TOPICAL TID [facility]; Protocol Last Admin: 03/21/22 21:33 Dose: 1 appl Documented By: HOLLY Ondansetron HCl (Ondansetron Hcl 4 Mg/2 Ml Vial) 4 mg IVPUSH Q8H PRN PRN Reason: Nausea and Vomiting Oxycodone HCl (Oxycodone Hcl Immed Release 5 Mg Tablet) 10 mg PO Q6H PRN PRN Reason: severe pain Last Admin: 03/21/22 23:26 Dose: 10 mg Documented By: FRANCISCO Pharmacy Consult (Consult Rx Perform Med Rec) 1 each MISCELLANE ONCE PRN PRN Reason: Consult order Polyethylene Glycol (Polyethylene Glycol 3350 17 Gm Powd.Pack) 17 gm PO DAILY PRN PRN Reason: constipation Last Admin: 03/17/22 12:33 Dose: 17 gm Documented By: SHAN Potassium Chloride (Potassium Chloride Er 20 Meq Tab.Er.Prt) 40 meq PO DAILY [facility] Last Admin: 03/21/22 09:10 Dose: 40 meq Documented By: SIERRA Quetiapine Fumarate (Quetiapine Fumarate 25 Mg Tablet) 12.5 mg PO BID PRN PRN Reason: anxiety, agitation Last Admin: 03/18/22 22:41 Dose: 12.5 mg Documented By: HOLLY Sodium Chloride (0.9 % Sodium Chloride Flush 3 Ml Syringe) 3 ml IVFLUSH QSHIFT [facility] Last Admin: 03/22/22 02:16 Dose: Not Given Documented By: FRANCISCO Non-Admin Reason: No Access Warfarin Sodium (Warfarin Sodium 3 Mg Tablet) 3 mg PO DAILY@1800 [facility] Last Admin: 03/21/22 18:29 Dose: 3 mg Documented By: HOLLY Labs CBC & Chem 7: 03/05/22 06:20 03/20/22 05:27 Labs: Laboratory Results - last 24 hr 03/22/22 05:58 PT 33.0 H INR 2.8 H Assessment and Plan (1) Chronic atrial fibrillation: Status: Acute (2) Chronic heart failure: Status: Acute (3) Psoriatic arthritis: Status: Acute Plan 81yo F with AF (persistent?) + HFpEF, initially was awaiting for LTC placement but became hypotensive and had positive UA concerning for infection, though ultimately grew coag-neg staph from urine and blood determined to be contaminant 1Chronic AFib -acceptable rate control on beta blockade -warfarin resumed, INR 2.8... no changes -PT/ INR daily 2.Chronic HFpEF - asymptomatic - continue current therapies 3.Psoriatic arthritis - Lorcet 7.5/325 q.4 hours as needed, -adjust as indicated VTE ppx: warfarin In my clinical judgment, the patient requires continued hospitalization for LTC placement, safe disposition Quality Stroke Does the patient have a stroke diagnosis?: No VTE Prior VTE?: No VTE Risk Level:: Medical - moderate - high VTE Device Contraindication: Treatment Not Indicated VTE Drug Contraindication: Treatment Not Indicated
[2022-03-22] MEDS: Lidocaine 4 % Patch ADH..PATCH 1 PATCH TRANSDERMA (08:52)
[2022-03-22] MEDS: Bumetanide 1 MG TABLET PO (08:52)
[2022-03-22] MEDS: Escitalopram Oxalate 10 MG TABLET PO (08:52)
[2022-03-22] MEDS: Potassium Chloride ER 20 MEQ TAB.ER.PRT 40 MEQ PO (08:52)
[2022-03-22] MEDS: Metoprolol Tartrate 12.5 MG HALFTAB PO ×2 (08:52→20:35)
[2022-03-22] MEDS: Nystatin Powder 15 GM BOTTLE 1 APPL TOPICAL ×3 (08:53→20:35)
[2022-03-22 10:59] VITALS: BP 98/58; PULSE 95; RESP 19; TEMP 36.1; O2SAT 99
[2022-03-22] MEDS: oxyCODONE HCl Immed Release 5 MG TABLET 10 MG PO ×2 (11:00→17:55)
[2022-03-22] MEDS: polyethylene glycoL 3350 17 GM POWD.PACK PO (11:01)
[2022-03-22 15:21] VITALS: BP 108/58; PULSE 110; RESP 14; TEMP 36.3; O2SAT 95
[2022-03-22] MEDS: Acetaminophen 325 MG TABLET 650 MG PO (15:40)
[2022-03-22] MEDS: Warfarin Sodium 3 MG TABLET PO (18:00)
[2022-03-22 19:31] VITALS: BP 108/62; PULSE 121; RESP 18; TEMP 36.2; O2SAT 96
[2022-03-22 23:39] VITALS: BP 112/58; PULSE 92; RESP 18; TEMP 36.3; O2SAT 98
[2022-03-23] MEDS: oxyCODONE HCl Immed Release 5 MG TABLET 10 MG PO (01:13)
[2022-03-23] MEDS: 0.9 % Sodium Chloride Flush 3 ML SYRINGE IVFLUSH (03:49)
[2022-03-23 03:53] VITALS: BP 99/57; PULSE 109; RESP 18; TEMP 36.3; O2SAT 98
[2022-03-23 06:11] LABS: INTERNATIONAL NORM RATIO 2.3 (0.9-1.1); Prothrombin Time 27.9 SEC (10.0-13.1)
[2022-03-23 07:39] VITALS: BP 99/61; PULSE 99; RESP 19; TEMP 36.1; O2SAT 97
[2022-03-23] MEDS: Acetaminophen 325 MG TABLET 650 MG PO ×2 (08:27→16:42)
[2022-03-23] MEDS: Escitalopram Oxalate 10 MG TABLET PO (08:27)
[2022-03-23] MEDS: Potassium Chloride ER 20 MEQ TAB.ER.PRT 40 MEQ PO (08:27)
[2022-03-23] MEDS: Bumetanide 1 MG TABLET PO (08:27)
[2022-03-23] MEDS: Nystatin Powder 15 GM BOTTLE 1 APPL TOPICAL ×3 (08:28→21:03)
[2022-03-23] MEDS: Lidocaine 4 % Patch ADH..PATCH 1 PATCH TRANSDERMA (08:28)
[2022-03-23] MEDS: Metoprolol Tartrate 12.5 MG HALFTAB PO ×2 (08:28→21:03)
[2022-03-23 11:12] VITALS: BP 108/63; PULSE 109; RESP 19; TEMP 36.3; O2SAT 98
[2022-03-23] MEDS: QUEtiapine Fumarate 25 MG TABLET 12.5 MG PO (13:42)
--- NOTE | 2022-03-23 13:59 | HO.PM.IMPN ---
Subjective Subjective Date of Service: 03/23/22 Interval History: No acute issues overnight Review of Systems Denies chest pain Denies shortness of breath Denies nausea vomiting diarrhea Denies fever chills Physical Exam Vital Signs: Vital Signs: Last Vital Signs Temp 97.4 F 03/23/22 11:12 Pulse 109 H 03/23/22 11:12 Resp 19 03/23/22 11:12 BP 108/63 03/23/22 11:12 Pulse Ox 98 03/23/22 11:12 O2 Del Method 03/23/22 11:12 O2 Flow Rate 2 03/23/22 07:39 FiO2 99 02/22/22 03:47 BMI result Body Mass Index 28.9 Const: Other: no acute issue Resp: Other: clear to auscultation bilaterally no rales rhonchi or wheezes Cardio: Other: no S4; positive S1-S2; no S3 murmurs rubs or gallops Extrem: Other: no edema bilateral Objective Data Active Medications Acetaminophen (Acetaminophen 325 Mg Tablet) 650 mg PO Q6H PRN PRN Reason: Pain, Mild (Pain Scale 1-3) Last Admin: 03/23/22 08:27 Dose: 650 mg Documented By: SHAN Bumetanide (Bumetanide 1 Mg Tablet) 1 mg PO DAILY [facility]; Protocol Last Admin: 03/23/22 08:27 Dose: 1 mg Documented By: SHAN Escitalopram Oxalate (Escitalopram Oxalate 10 Mg Tablet) 10 mg PO DAILY [facility] Last Admin: 03/23/22 08:27 Dose: 10 mg Documented By: SHAN Lidocaine (Lidocaine 4 % Patch Adh..Patch) 1 patch TRANSDERMA DAILY [facility]; Protocol Last Admin: 03/23/22 08:28 Dose: 1 patch Documented By: SHAN Metoprolol Tartrate (Metoprolol Tartrate 12.5 Mg Halftab) 12.5 mg PO BID [facility]; Protocol Last Admin: 03/23/22 08:28 Dose: 12.5 mg Documented By: SHAN Nystatin (Nystatin Powder 15 Gm Bottle) 1 appl TOPICAL TID [facility]; Protocol Last Admin: 03/23/22 08:28 Dose: 1 appl Documented By: SHAN Ondansetron HCl (Ondansetron Odt 4 Mg Tab.Rapdis) 4 mg TRANSLINGU Q6H PRN PRN Reason: Nausea and Vomiting Pharmacy Consult (Consult Rx Perform Med Rec) 1 each MISCELLANE ONCE PRN PRN Reason: Consult order Polyethylene Glycol (Polyethylene Glycol 3350 17 Gm Powd.Pack) 17 gm PO DAILY PRN PRN Reason: constipation Last Admin: 03/22/22 11:01 Dose: 17 gm Documented By: SHAN Potassium Chloride (Potassium Chloride Er 20 Meq Tab.Er.Prt) 40 meq PO DAILY [facility] Last Admin: 03/23/22 08:27 Dose: 40 meq Documented By: SHAN Quetiapine Fumarate (Quetiapine Fumarate 25 Mg Tablet) 12.5 mg PO BID PRN PRN Reason: anxiety, agitation Last Admin: 03/23/22 13:42 Dose: 12.5 mg Documented By: SHAN Sodium Chloride (0.9 % Sodium Chloride Flush 3 Ml Syringe) 3 ml IVFLUSH QSHIFT [facility] Last Admin: 03/23/22 08:18 Dose: Not Given Documented By: SHAN Non-Admin Reason: No Access Warfarin Sodium (Warfarin Sodium 3 Mg Tablet) 3 mg PO DAILY@1800 [facility] Last Admin: 03/22/22 18:00 Dose: 3 mg Documented By: SHAN Labs CBC & Chem 7: 03/05/22 06:20 03/20/22 05:27 Labs: Laboratory Results - last 24 hr 03/23/22 05:32 PT 27.9 H INR 2.3 H Assessment and Plan (1) Chronic atrial fibrillation: Status: Acute (2) Chronic heart failure: Status: Acute (3) Psoriatic arthritis: Status: Acute Plan 81yo F with AF (persistent?) + HFpEF, initially was awaiting for LTC placement but became hypotensive and had positive UA concerning for infection, though ultimately grew coag-neg staph from urine and blood determined to be contaminant 1Chronic AFib -acceptable rate control on beta blockade -warfarin resumed, INR 2.3... no changes -PT/ INR daily 2.Chronic HFpEF - asymptomatic - continue current therapies 3.Psoriatic arthritis - Lorcet 7.5/325 q.4 hours as needed, -adjust as indicated VTE ppx: warfarin In my clinical judgment, the patient requires continued hospitalization for LTC placement, safe disposition Quality Stroke Does the patient have a stroke diagnosis?: No VTE Prior VTE?: No VTE Risk Level:: Medical - moderate - high VTE Device Contraindication: Treatment Not Indicated VTE Drug Contraindication: Treatment Not Indicated
--- NOTE | 2022-03-23 14:54 | MHC.CM.PN ---
PATIENT REPORTEDLY FEELING SOME EMOTIONAL UPSET FOLLOWING A VISIT FROM DAUGHTER RUDDY. PATIENT AGREES TO SPEAK WITH T/W PATIENT STATES THERE IS NOTHING I CAN DO FOR HER UNTIL I GET OUT OF HERE PATIENT REPORTS THAT RUDDY LIVES WITH HER AND HER SPOUSE, BUT THAT SPOUSE IS CURRENTLY AT [facility] [place] ([facility]) PATIENT IS AWARE THAT IF AT ANYTIME DURING HER STAY, SHE FEELS THAT SHE DOES NOT WANT ANY VISITORS, SHE CAN INFORM ANY STAFF MEMBER TO NOTIFY THE UNIT SHE IS ALSO AWARE THAT T/W WILL INFORM COVERING MANUFACTURING DIRECTOR OF CONVERSATION AND PATIENT IS AGREEABLE TO THIS PLAN.
[2022-03-23 16:00] VITALS: BP 122/66; PULSE 108; RESP 19; TEMP 37.1; O2SAT 96
[2022-03-23] MEDS: oxyCODONE HCl Immed Release 5 MG TABLET PO ×2 (16:43→21:03)
[2022-03-23] MEDS: Warfarin Sodium 3 MG TABLET PO (16:43)
[2022-03-23 19:28] VITALS: BP 100/52; PULSE 96; RESP 17; TEMP 37.1; O2SAT 96
[2022-03-23 23:40] VITALS: BP 98/61; PULSE 90; RESP 18; TEMP 36; O2SAT 99
[2022-03-24 04:00] VITALS: BP 110/64; PULSE 88; RESP 18; TEMP 36.3; O2SAT 93
[2022-03-24] MEDS: oxyCODONE HCl Immed Release 5 MG TABLET PO ×3 (05:37→20:07)
[2022-03-24 06:34] LABS: INTERNATIONAL NORM RATIO 2.3 (0.9-1.1); Prothrombin Time 27.1 SEC (10.0-13.1)
[2022-03-24 07:48] VITALS: BP 102/65; PULSE 90; RESP 16; TEMP 36.4; O2SAT 99
[2022-03-24] MEDS: Potassium Chloride ER 20 MEQ TAB.ER.PRT 40 MEQ PO (07:57)
[2022-03-24] MEDS: Bumetanide 1 MG TABLET PO (07:57)
[2022-03-24] MEDS: Metoprolol Tartrate 12.5 MG HALFTAB PO (07:57)
[2022-03-24] MEDS: Escitalopram Oxalate 10 MG TABLET PO (07:57)
[2022-03-24] MEDS: Nystatin Powder 15 GM BOTTLE 1 APPL TOPICAL ×3 (07:57→20:08)
[2022-03-24] MEDS: Lidocaine 4 % Patch ADH..PATCH 1 PATCH TRANSDERMA (07:58)
--- NOTE | 2022-03-24 10:27 | P.PNIM_ITS ---
Subjective Subjective Date of Service: 03/24/22 Interval History: No acute issues overnight Review of Systems Denies chest pain Denies shortness of breath Denies nausea vomiting diarrhea Denies fever chills Physical Exam Vital Signs: Vital Signs: Last Vital Signs Temp 97.5 F 03/24/22 07:48 Pulse 90 03/24/22 07:48 Resp 16 03/24/22 07:48 BP 102/65 03/24/22 07:48 Pulse Ox 99 03/24/22 07:48 O2 Del Method 03/24/22 07:48 O2 Flow Rate 2 03/24/22 07:48 FiO2 99 02/22/22 03:47 BMI result Body Mass Index 28.9 Const: Other: no acute issue Resp: Other: clear to auscultation bilaterally no rales rhonchi or wheezes Cardio: Other: no S4; positive S1-S2; no S3 murmurs rubs or gallops Extrem: Other: no edema bilateral Objective Data Active Medications Acetaminophen (Acetaminophen 325 Mg Tablet) 650 mg PO Q6H PRN PRN Reason: Pain, Mild (Pain Scale 1-3) Last Admin: 03/23/22 16:42 Dose: 650 mg Documented By: SHAN Bumetanide (Bumetanide 1 Mg Tablet) 1 mg PO DAILY [facility]; Protocol Last Admin: 03/24/22 07:57 Dose: 1 mg Documented By: DIMPLE Escitalopram Oxalate (Escitalopram Oxalate 10 Mg Tablet) 10 mg PO DAILY [facility] Last Admin: 03/24/22 07:57 Dose: 10 mg Documented By: DIMPLE Lidocaine (Lidocaine 4 % Patch Adh..Patch) 1 patch TRANSDERMA DAILY [facility]; Protocol Last Admin: 03/24/22 07:58 Dose: 1 patch Documented By: DIMPLE Metoprolol Tartrate (Metoprolol Tartrate 12.5 Mg Halftab) 12.5 mg PO BID [facility]; Protocol Last Admin: 03/24/22 07:57 Dose: 12.5 mg Documented By: DIMPLE Nystatin (Nystatin Powder 15 Gm Bottle) 1 appl TOPICAL TID [facility]; Protocol Last Admin: 03/24/22 07:57 Dose: 1 appl Documented By: DIMPLE Ondansetron HCl (Ondansetron Odt 4 Mg Tab.Rapdis) 4 mg TRANSLINGU Q6H PRN PRN Reason: Nausea and Vomiting Oxycodone HCl (Oxycodone Hcl Immed Release 5 Mg Tablet) 5 mg PO Q4H PRN PRN Reason: Pain, Moderate (Pain Scale 4-6 Last Admin: 03/24/22 05:37 Dose: 5 mg Documented By: FRANCISCO Pharmacy Consult (Consult Rx Perform Med Rec) 1 each MISCELLANE ONCE PRN PRN Reason: Consult order Polyethylene Glycol (Polyethylene Glycol 3350 17 Gm Powd.Pack) 17 gm PO DAILY PRN PRN Reason: constipation Last Admin: 03/22/22 11:01 Dose: 17 gm Documented By: SHAN Potassium Chloride (Potassium Chloride Er 20 Meq Tab.Er.Prt) 40 meq PO DAILY [facility] Last Admin: 03/24/22 07:57 Dose: 40 meq Documented By: DIMPLE Quetiapine Fumarate (Quetiapine Fumarate 25 Mg Tablet) 12.5 mg PO BID PRN PRN Reason: anxiety, agitation Last Admin: 03/23/22 13:42 Dose: 12.5 mg Documented By: SHAN Sodium Chloride (0.9 % Sodium Chloride Flush 3 Ml Syringe) 3 ml IVFLUSH QSHIFT [facility] Last Admin: 03/24/22 08:09 Dose: Not Given Documented By: DIMPLE Non-Admin Reason: No Access Warfarin Sodium (Warfarin Sodium 3 Mg Tablet) 3 mg PO DAILY@1800 [facility] Last Admin: 03/23/22 16:43 Dose: 3 mg Documented By: SHAN Labs CBC & Chem 7: 03/05/22 06:20 03/20/22 05:27 Labs: Laboratory Results - last 24 hr 03/24/22 05:22 PT 27.1 H INR 2.3 H Assessment and Plan (1) Chronic atrial fibrillation: Status: Acute (2) Chronic heart failure: Status: Acute (3) Psoriatic arthritis: Status: Acute Plan 81yo F with AF (persistent?) + HFpEF, initially was awaiting for LTC placement but became hypotensive and had positive UA concerning for infection, though ultimately grew coag-neg staph from urine and blood determined to be contaminant 1Chronic AFib -acceptable rate control on beta blockade -warfarin resumed, INR 2.3... no changes -PT/ INR daily 2.Chronic HFpEF - asymptomatic - continue current therapies 3.Psoriatic arthritis - Lorcet 7.5/325 q.4 hours as needed, -adjust as indicated VTE ppx: warfarin In my clinical judgment, the patient requires continued hospitalization for LTC placement, safe disposition Quality Stroke Does the patient have a stroke diagnosis?: No VTE Prior VTE?: No VTE Risk Level:: Medical - moderate - high VTE Device Contraindication: Treatment Not Indicated VTE Drug Contraindication: Treatment Not Indicated
[2022-03-24 11:07] VITALS: BP 96/58; PULSE 86; RESP 18; TEMP 36.1; O2SAT 98
--- NOTE | 2022-03-24 13:59 | MHC.CM.PN ---
EMR REVIEWED, PER HOSPITALIST PLAN FOR LTC AND SAFE D/C PLAN, SNF REFERRAL UPDATED, NO BED OFFERS AT THIS TIME, CM WILL CONT TO FOLLOW D/C NEEDS.
[2022-03-24 15:16] VITALS: BP 107/61; PULSE 97; RESP 16; TEMP 36.4; O2SAT 97
[2022-03-24] MEDS: Warfarin Sodium 3 MG TABLET PO (17:57)
[2022-03-24 19:32] VITALS: BP 94/54; PULSE 95; RESP 18; TEMP 36.7; O2SAT 97
[2022-03-24] MEDS: Acetaminophen 325 MG TABLET 650 MG PO (20:07)
[2022-03-24] MEDS: QUEtiapine Fumarate 25 MG TABLET 12.5 MG PO (20:08)
[2022-03-24 23:46] VITALS: BP 100/62; PULSE 57; RESP 18; TEMP 36.1; O2SAT 100
[2022-03-25 03:34] VITALS: BP 103/53; PULSE 78; RESP 18; TEMP 36.1; O2SAT 96
[2022-03-25] MEDS: oxyCODONE HCl Immed Release 5 MG TABLET PO ×4 (05:38→22:23)
[2022-03-25 06:35] LABS: INTERNATIONAL NORM RATIO 2.6 (0.9-1.1); Prothrombin Time 30.6 SEC (10.0-13.1)
[2022-03-25 07:09] VITALS: BP 103/52; PULSE 84; RESP 18; TEMP 36; O2SAT 99
[2022-03-25] MEDS: Lidocaine 4 % Patch ADH..PATCH 1 PATCH TRANSDERMA (08:54)
[2022-03-25] MEDS: Bumetanide 1 MG TABLET PO (08:55)
[2022-03-25] MEDS: Metoprolol Tartrate 12.5 MG HALFTAB PO ×2 (08:55→21:03)
[2022-03-25] MEDS: Escitalopram Oxalate 10 MG TABLET PO (08:55)
[2022-03-25] MEDS: Nystatin Powder 15 GM BOTTLE 1 APPL TOPICAL ×3 (08:56→21:33)
[2022-03-25] MEDS: 0.9 % Sodium Chloride Flush 3 ML SYRINGE IVFLUSH ×2 (08:56→16:43)
[2022-03-25 12:00] VITALS: BP 123/65; PULSE 87; RESP 19; TEMP 36.4; O2SAT 95
--- NOTE | 2022-03-25 13:07 | P.PNIM_ITS ---
Subjective Subjective Date of Service: 03/26/22 Interval History: no new issues. Review of Systems Denies any chest pain or shortness of breath or abdominal pain. Physical Exam Vital Signs: Vital Signs: Last Vital Signs Temp 97.6 F 03/25/22 12:00 Pulse 87 03/25/22 12:00 Resp 19 03/25/22 12:00 BP 123/65 03/25/22 12:00 Pulse Ox 95 03/25/22 12:00 O2 Del Method 03/25/22 12:00 O2 Flow Rate 2 03/25/22 12:00 FiO2 99 02/22/22 03:47 BMI result Body Mass Index 28.9 Appearance: Alert.? Oriented,? not in distress.? cvs: [id number], [id number] res: fair air entry, no rales or wheezing abd: no rebound or guarding ,nt, bs present. ext pulses present , no cyanosis . Objective Data Active Medications Acetaminophen (Acetaminophen 325 Mg Tablet) 650 mg PO Q6H PRN PRN Reason: Pain, Mild (Pain Scale 1-3) Last Admin: 03/24/22 20:07 Dose: 650 mg Documented By: MITCH Bumetanide (Bumetanide 1 Mg Tablet) 1 mg PO DAILY [facility]; Protocol Last Admin: 03/25/22 08:55 Dose: 1 mg Documented By: ROSALINE Escitalopram Oxalate (Escitalopram Oxalate 10 Mg Tablet) 10 mg PO DAILY [facility] Last Admin: 03/25/22 08:55 Dose: 10 mg Documented By: ROSALINE Lidocaine (Lidocaine 4 % Patch Adh..Patch) 1 patch TRANSDERMA DAILY [facility]; Protocol Last Admin: 03/25/22 08:54 Dose: 1 patch Documented By: ROSALINE Metoprolol Tartrate (Metoprolol Tartrate 12.5 Mg Halftab) 12.5 mg PO BID [facility]; Protocol Last Admin: 03/25/22 08:55 Dose: 12.5 mg Documented By: ROSALINE Nystatin (Nystatin Powder 15 Gm Bottle) 1 appl TOPICAL TID [facility]; Protocol Last Admin: 03/25/22 08:56 Dose: 1 appl Documented By: ROSALINE Ondansetron HCl (Ondansetron Odt 4 Mg Tab.Rapdis) 4 mg TRANSLINGU Q6H PRN PRN Reason: Nausea and Vomiting Oxycodone HCl (Oxycodone Hcl Immed Release 5 Mg Tablet) 5 mg PO Q4H PRN PRN Reason: Pain, Moderate (Pain Scale 4-6 Last Admin: 03/25/22 11:43 Dose: 5 mg Documented By: ROSALINE Pharmacy Consult (Consult Rx Perform Med Rec) 1 each MISCELLANE ONCE PRN PRN Reason: Consult order Polyethylene Glycol (Polyethylene Glycol 3350 17 Gm Powd.Pack) 17 gm PO DAILY PRN PRN Reason: constipation Last Admin: 03/22/22 11:01 Dose: 17 gm Documented By: SHAN Potassium Chloride (Potassium Chloride Er 20 Meq Tab.Er.Prt) 40 meq PO DAILY [facility] Last Admin: 03/24/22 07:57 Dose: 40 meq Documented By: DIMPLE Quetiapine Fumarate (Quetiapine Fumarate 25 Mg Tablet) 12.5 mg PO BID PRN PRN Reason: anxiety, agitation Last Admin: 03/24/22 20:08 Dose: 12.5 mg Documented By: MITCH Sodium Chloride (0.9 % Sodium Chloride Flush 3 Ml Syringe) 3 ml IVFLUSH QSHIFT [facility] Last Admin: 03/25/22 08:56 Dose: 3 ml Documented By: ROSALINE Warfarin Sodium (Warfarin Sodium 3 Mg Tablet) 3 mg PO DAILY@1800 [facility] Last Admin: 03/24/22 17:57 Dose: 3 mg Documented By: DIMPLE Labs CBC & Chem 7: 03/05/22 06:20 03/20/22 05:27 Labs: Laboratory Results - last 24 hr 03/25/22 05:46 PT 30.6 H INR 2.6 H Assessment and Plan (1) Chronic atrial fibrillation: Status: Acute (2) Chronic heart failure: Status: Acute (3) Psoriatic arthritis: Status: Acute Plan 81yo F with AF (persistent?) + HFpEF, initially was awaiting for LTC placement but became hypotensive and had positive UA concerning for infection, though ultimately grew coag-neg staph from urine and blood determined to be contaminant 1Chronic AFib -acceptable rate control on beta blockade -warfarin resumed, INR 2.3... no changes -PT/ INR daily 2.Chronic HFpEF - asymptomatic - continue current therapies 3.Psoriatic arthritis - Lorcet 7.5/325 q.4 hours as needed, -adjust as indicated VTE ppx: warfarin inpatient need: LTC placement, safe disposition Quality Stroke Does the patient have a stroke diagnosis?: No VTE Prior VTE?: No VTE Risk Level:: Medical - moderate - high VTE Device Contraindication: Treatment Not Indicated VTE Drug Contraindication: Treatment Not Indicated
[2022-03-25] MEDS: Acetaminophen 325 MG TABLET 650 MG PO ×2 (13:51→21:36)
[2022-03-25 16:00] VITALS: BP 149/85; PULSE 85; RESP 16; TEMP 36.8; O2SAT 96
[2022-03-25] MEDS: Warfarin Sodium 3 MG TABLET PO (17:43)
[2022-03-25 20:00] VITALS: BP 105/58; PULSE 87; RESP 18; TEMP 36.4; O2SAT 99
[2022-03-25 23:26] VITALS: BP 95/55; PULSE 98; RESP 16; TEMP 36.2; O2SAT 97
[2022-03-26] MEDS: QUEtiapine Fumarate 25 MG TABLET 12.5 MG PO ×2 (00:16→16:37)
[2022-03-26 03:18] VITALS: BP 107/65; PULSE 79; RESP 16; TEMP 36; O2SAT 95
[2022-03-26 06:33] LABS: INTERNATIONAL NORM RATIO 2.7 (0.9-1.1); Prothrombin Time 32.5 SEC (10.0-13.1)
[2022-03-26 07:20] VITALS: BP 110/58; PULSE 84; RESP 16; TEMP 36.2; O2SAT 97
[2022-03-26] MEDS: Lidocaine 4 % Patch ADH..PATCH 1 PATCH TRANSDERMA (08:53)
[2022-03-26] MEDS: Metoprolol Tartrate 12.5 MG HALFTAB PO ×2 (08:54→21:31)
[2022-03-26] MEDS: Escitalopram Oxalate 10 MG TABLET PO (08:54)
[2022-03-26] MEDS: Bumetanide 1 MG TABLET PO (08:54)
[2022-03-26] MEDS: Nystatin Powder 15 GM BOTTLE 1 APPL TOPICAL ×3 (08:54→21:35)
[2022-03-26] MEDS: oxyCODONE HCl Immed Release 5 MG TABLET PO ×4 (08:54→21:31)
--- NOTE | 2022-03-26 11:03 | MHC.CLN ---
F/U DIET=CARDIAC. SUPPLEMENT ENSURE BID PROVIDES ADDITIONAL 700 KCALS, 40 G PROTEIN. SKIN WITH STGE II TO BILATEAL BUTTOCKS. SUPPLEMENT APPROPROITE TO PROMOTE WOUND HEALING. INTAKE APPEARS GOOD WITH MOST MEALS 75-100%. CONTINUE TO FOLLOW FOR INTAKE AND WOUND HEALING. RD TO FOLLOW WEEKLY.
[2022-03-26 11:23] VITALS: BP 116/68; PULSE 93; RESP 18; TEMP 36.2; O2SAT 98
--- NOTE | 2022-03-26 12:52 | P.PNIM_ITS ---
Subjective Subjective Date of Service: 03/26/22 Interval History: no new issues. Review of Systems Denies any chest pain or shortness of breath or abdominal pain. Physical Exam Vital Signs: Vital Signs: Last Vital Signs Temp 97.1 F 03/26/22 11:23 Pulse 93 03/26/22 11:23 Resp 18 03/26/22 11:23 BP 116/68 03/26/22 11:23 Pulse Ox 98 03/26/22 11:23 O2 Del Method 03/26/22 11:23 O2 Flow Rate 2 03/26/22 11:23 FiO2 99 02/22/22 03:47 BMI result Body Mass Index 28.9 Appearance: Alert.? Oriented,? not in distress.? cvs: [id number], [id number] res: fair air entry, no rales or wheezing abd: no rebound or guarding ,nt, bs present. ext pulses present , no cyanosis . ? Objective Data Active Medications Acetaminophen (Acetaminophen 325 Mg Tablet) 650 mg PO Q6H PRN PRN Reason: Pain, Mild (Pain Scale 1-3) Last Admin: 03/25/22 21:36 Dose: 650 mg Documented By: OMEGA Bumetanide (Bumetanide 1 Mg Tablet) 1 mg PO DAILY [facility]; Protocol Last Admin: 03/26/22 08:54 Dose: 1 mg Documented By: ROSALINE Escitalopram Oxalate (Escitalopram Oxalate 10 Mg Tablet) 10 mg PO DAILY [facility] Last Admin: 03/26/22 08:54 Dose: 10 mg Documented By: ROSALINE Lidocaine (Lidocaine 4 % Patch Adh..Patch) 1 patch TRANSDERMA DAILY [facility]; Protocol Last Admin: 03/26/22 08:53 Dose: 1 patch Documented By: ROSALINE Metoprolol Tartrate (Metoprolol Tartrate 12.5 Mg Halftab) 12.5 mg PO BID [facility]; Protocol Last Admin: 03/26/22 08:54 Dose: 12.5 mg Documented By: ROSALINE Nystatin (Nystatin Powder 15 Gm Bottle) 1 appl TOPICAL TID [facility]; Protocol Last Admin: 03/26/22 08:54 Dose: 1 appl Documented By: ROSALINE Ondansetron HCl (Ondansetron Odt 4 Mg Tab.Rapdis) 4 mg TRANSLINGU Q6H PRN PRN Reason: Nausea and Vomiting Oxycodone HCl (Oxycodone Hcl Immed Release 5 Mg Tablet) 5 mg PO Q4H PRN PRN Reason: Pain, Moderate (Pain Scale 4-6 Last Admin: 03/26/22 08:54 Dose: 5 mg Documented By: ROSALINE Pharmacy Consult (Consult Rx Perform Med Rec) 1 each MISCELLANE ONCE PRN PRN Reason: Consult order Polyethylene Glycol (Polyethylene Glycol 3350 17 Gm Powd.Pack) 17 gm PO DAILY PRN PRN Reason: constipation Last Admin: 03/22/22 11:01 Dose: 17 gm Documented By: SHAN Potassium Chloride (Potassium Chloride Er 20 Meq Tab.Er.Prt) 40 meq PO DAILY [facility] Last Admin: 03/24/22 07:57 Dose: 40 meq Documented By: DIMPLE Quetiapine Fumarate (Quetiapine Fumarate 25 Mg Tablet) 12.5 mg PO BID PRN PRN Reason: anxiety, agitation Last Admin: 03/26/22 00:16 Dose: 12.5 mg Documented By: CHANDRAKANTRINDalila Sodium Chloride (0.9 % Sodium Chloride Flush 3 Ml Syringe) 3 ml IVFLUSH QSHIFT [facility] Last Admin: 03/26/22 08:59 Dose: Not Given Documented By: ROSALINE Non-Admin Reason: No Access Warfarin Sodium (Warfarin Sodium 3 Mg Tablet) 3 mg PO DAILY@1800 [facility] Last Admin: 03/25/22 17:43 Dose: 3 mg Documented By: ROSALINE Labs CBC & Chem 7: 03/05/22 06:20 03/20/22 05:27 Labs: Laboratory Results - last 24 hr 03/26/22 05:31 PT 32.5 H INR 2.7 H Assessment and Plan (1) Chronic atrial fibrillation: Status: Acute Plan 81yo F with AF (persistent?) + HFpEF, initially was awaiting for LTC placement but became hypotensive and had positive UA concerning for infection, though ultimately grew coag-neg staph from urine and blood determined to be contaminant 1Chronic AFib -acceptable rate control on beta blockade -warfarin resumed, INR 2.3... no changes -PT/ INR daily 2.Chronic HFpEF -? asymptomatic - continue current therapies 3.Psoriatic arthritis - Lorcet 7.5/325 q.4 hours as needed, -adjust as indicated VTE ppx: warfarin inpatient need: LTC placement, safe disposition Quality Stroke Does the patient have a stroke diagnosis?: No VTE Prior VTE?: No VTE Risk Level:: Medical - moderate - high VTE Device Contraindication: Treatment Not Indicated VTE Drug Contraindication: Treatment Not Indicated
--- NOTE | 2022-03-26 14:50 | MHC.CM.PN ---
Addendum entered by Ashwini Cardoso 03/26/22 15:57: PER SHERYL MALONE IN FINANCIAL, STILL AWAITING COMPLETED DOCUMENTS FROM FAMILY FOR MH APPLICATION Original Note: EMR REVIEWED PT STILL AWAITING LTC BED OFFER, CM AWAITING RESPONSE FROM FINANCIAL SERVICES ON STATUS OF MH APPLICATION
[2022-03-26 15:14] VITALS: BP 85/58; PULSE 85; RESP 17; TEMP 36.1; O2SAT 92
[2022-03-26] MEDS: Warfarin Sodium 3 MG TABLET PO (17:33)
[2022-03-26 19:53] VITALS: BP 146/82; PULSE 82; RESP 20; TEMP 36.3; O2SAT 92
[2022-03-26] MEDS: Erythromycin Base 0.5% Oph Oin 1 GM TUBE 1 CM EYE-LEFT (21:31)
[2022-03-27] VITALS (7 sets, daily range): BP systolic 88–108; BP diastolic 50–60; PULSE 56–82; RESP 16–19; TEMP 35.9–37.1; O2SAT 94–99
[2022-03-27] MEDS: oxyCODONE HCl Immed Release 5 MG TABLET PO ×5 (01:27→21:54)
[2022-03-27 06:34] LABS: INTERNATIONAL NORM RATIO 2.8 (0.9-1.1); Prothrombin Time 33.9 SEC (10.0-13.1)
[2022-03-27] MEDS: Bumetanide 1 MG TABLET PO (07:55)
[2022-03-27] MEDS: Metoprolol Tartrate 12.5 MG HALFTAB PO (07:55)
[2022-03-27] MEDS: Escitalopram Oxalate 10 MG TABLET PO (07:56)
[2022-03-27] MEDS: Lidocaine 4 % Patch ADH..PATCH 1 PATCH TRANSDERMA (07:56)
[2022-03-27] MEDS: Erythromycin Base 0.5% Oph Oin 1 GM TUBE 1 CM EYE-LEFT ×4 (07:57→20:35)
[2022-03-27] MEDS: Nystatin Powder 15 GM BOTTLE 1 APPL TOPICAL ×3 (07:57→20:35)
--- NOTE | 2022-03-27 12:32 | HO.PM.IMPN ---
Subjective Subjective Date of Service: 03/27/22 Interval History: no new issues. Review of Systems Denies any chest pain or shortness of breath or abdominal pain. left eye possible subconjuctval haemorrage due to cough Physical Exam Vital Signs: Vital Signs: Last Vital Signs Temp 97.0 F 03/27/22 11:44 Pulse 73 03/27/22 11:44 Resp 18 03/27/22 11:44 BP 93/52 L 03/27/22 11:44 Pulse Ox 99 03/27/22 11:44 O2 Del Method 03/27/22 11:44 O2 Flow Rate 2 03/27/22 11:44 FiO2 99 02/22/22 03:47 BMI result Body Mass Index 28.9 ?Appearance: Alert.? Oriented,? not in distress.? eye : left eye possible subconjuctval haemorrage cvs: [id number], [id number] res: fair air entry, no rales or wheezing abd: no rebound or guarding ,nt, bs present. ext pulses present , no cyanosis . ? Objective Data Active Medications Acetaminophen (Acetaminophen 325 Mg Tablet) 650 mg PO Q6H PRN PRN Reason: Pain, Mild (Pain Scale 1-3) Last Admin: 03/25/22 21:36 Dose: 650 mg Documented By: CHANDRAKANTRINDalila Bumetanide (Bumetanide 1 Mg Tablet) 1 mg PO DAILY [facility]; Protocol Last Admin: 03/27/22 07:55 Dose: 1 mg Documented By: VALDEZ Erythromycin (Erythromycin Base 0.5% Oph Oin 1 Gm Tube) 1 cm EYE-LEFT QID [facility] Stop: 04/02/22 17:01 Last Admin: 03/27/22 07:57 Dose: 1 cm Documented By: VALDEZ Escitalopram Oxalate (Escitalopram Oxalate 10 Mg Tablet) 10 mg PO DAILY [facility] Last Admin: 03/27/22 07:56 Dose: 10 mg Documented By: VALDEZ Lidocaine (Lidocaine 4 % Patch Adh..Patch) 1 patch TRANSDERMA DAILY [facility]; Protocol Last Admin: 03/27/22 07:56 Dose: 1 patch Documented By: VALDEZ Metoprolol Tartrate (Metoprolol Tartrate 12.5 Mg Halftab) 12.5 mg PO BID [facility]; Protocol Last Admin: 03/27/22 07:55 Dose: 12.5 mg Documented By: VALDEZ Nystatin (Nystatin Powder 15 Gm Bottle) 1 appl TOPICAL TID [facility]; Protocol Last Admin: 03/27/22 07:57 Dose: 1 appl Documented By: VALDEZ Ondansetron HCl (Ondansetron Odt 4 Mg Tab.Rapdis) 4 mg TRANSLINGU Q6H PRN PRN Reason: Nausea and Vomiting Oxycodone HCl (Oxycodone Hcl Immed Release 5 Mg Tablet) 5 mg PO Q4H PRN PRN Reason: Pain, Moderate (Pain Scale 4-6 Last Admin: 03/27/22 08:56 Dose: 5 mg Documented By: VALDEZ Pharmacy Consult (Consult Rx Perform Med Rec) 1 each MISCELLANE ONCE PRN PRN Reason: Consult order Polyethylene Glycol (Polyethylene Glycol 3350 17 Gm Powd.Pack) 17 gm PO DAILY PRN PRN Reason: constipation Last Admin: 03/22/22 11:01 Dose: 17 gm Documented By: SHAN Potassium Chloride (Potassium Chloride Er 20 Meq Tab.Er.Prt) 40 meq PO DAILY [facility] Last Admin: 03/24/22 07:57 Dose: 40 meq Documented By: DIMPLE Quetiapine Fumarate (Quetiapine Fumarate 25 Mg Tablet) 12.5 mg PO BID PRN PRN Reason: anxiety, agitation Last Admin: 03/26/22 16:37 Dose: 12.5 mg Documented By: ROSALINE Sodium Chloride (0.9 % Sodium Chloride Flush 3 Ml Syringe) 3 ml IVFLUSH QSHIFT [facility] Last Admin: 03/27/22 07:57 Dose: Not Given Documented By: VALDEZ Non-Admin Reason: No Access Warfarin Sodium (Warfarin Sodium 3 Mg Tablet) 3 mg PO DAILY@1800 [facility] Last Admin: 03/26/22 17:33 Dose: 3 mg Documented By: ROSALINE Labs CBC & Chem 7: 03/05/22 06:20 03/20/22 05:27 Labs: Laboratory Results - last 24 hr 03/27/22 05:36 PT 33.9 H INR 2.8 H Assessment and Plan (1) Chronic atrial fibrillation: Status: Acute (2) Subconjunctival hemorrhage: Status: Acute Plan 81yo F with AF (persistent?) + HFpEF, initially was awaiting for LTC placement but became hypotensive and had positive UA concerning for infection, though ultimately grew coag-neg staph from urine and blood determined to be contaminant 1Chronic AFib -acceptable rate control on beta blockade -warfarin resumed, INR 2.3... no changes -PT/ INR daily 2.Chronic HFpEF -? asymptomatic - continue current therapies 3.Psoriatic arthritis - Lorcet 7.5/325 q.4 hours as needed, -adjust as indicated 4. left eye possible subconjuctval haemorrage : asymptomatic continue to moniter VTE ppx: warfarin inpatient need: LTC placement, safe disposition Quality Stroke Does the patient have a stroke diagnosis?: No VTE Prior VTE?: No VTE Risk Level:: Medical - moderate - high VTE Device Contraindication: Treatment Not Indicated VTE Drug Contraindication: Treatment Not Indicated
[2022-03-27] MEDS: Warfarin Sodium 3 MG TABLET PO (17:37)
[2022-03-28] VITALS (7 sets, daily range): BP systolic 88–114; BP diastolic 53–72; PULSE 71–96; RESP 16–20; TEMP 36–36.7; O2SAT 96–99
[2022-03-28] MEDS: oxyCODONE HCl Immed Release 5 MG TABLET PO ×5 (02:00→22:27)
[2022-03-28 06:34] LABS: INTERNATIONAL NORM RATIO 2.4 (0.9-1.1); Prothrombin Time 28.6 SEC (10.0-13.1)
[2022-03-28] MEDS: Metoprolol Tartrate 12.5 MG HALFTAB PO ×2 (07:48→20:43)
[2022-03-28] MEDS: Escitalopram Oxalate 10 MG TABLET PO (07:49)
[2022-03-28] MEDS: Bumetanide 1 MG TABLET PO (07:49)
[2022-03-28] MEDS: Lidocaine 4 % Patch ADH..PATCH 1 PATCH TRANSDERMA (07:50)
[2022-03-28] MEDS: Erythromycin Base 0.5% Oph Oin 1 GM TUBE 1 CM EYE-LEFT (07:50)
[2022-03-28 08:41] LABS: Anion Gap 13 (12-20); Blood Urea Nitrogen 19 mg/dL (9-16); Carbon Dioxide 32 mmol/L (22-29); Chloride 101 mmol/L (96-108); Creatinine Clr Calc Pharmacy 68.1; Estimated Glomerular Filt Rate > 60; Glucose Random 90 mg/dL (60-115); Potassium 3.9 mmol/L (3.3-5.1); Sodium 142 mmol/L (135-145)
[2022-03-28] MEDS: Nystatin Powder 15 GM BOTTLE 1 APPL TOPICAL ×3 (09:39→20:45)
--- NOTE | 2022-03-28 13:58 | MHC.CM.PN ---
CM MET WITH PT TODAY WHO REPORTS BEING CONCERNED ABOUT HER MH APPLICATION CM EXPLAINED THERE WERE NO UPDATES AT THIS TIME SHE REPORTS SHE JUST WANTED TO BE SURE THAT THERE WAS NOTHING SHE NEEDED TO DO CM ASSURED HER IF THERE WAS ANYTHING NEEDED, SHE WOULD BE INFORMED CURRENT PLAN IS SNF PLACEMENT PENDING MH ACCEPTANCE
--- NOTE | 2022-03-28 15:32 | HO.PM.IMPN ---
Subjective Subjective Date of Service: 03/28/22 Interval History: no new issues. Review of Systems Denies any chest pain or shortness of breath or abdominal pain. left eye possible subconjuctval haemorrage improving Physical Exam Vital Signs: Vital Signs: Last Vital Signs Temp 97.5 F 03/28/22 11:36 Pulse 77 03/28/22 11:36 Resp 18 03/28/22 11:36 BP 108/63 03/28/22 11:36 Pulse Ox 98 03/28/22 11:36 O2 Del Method 03/28/22 11:36 O2 Flow Rate 2 03/28/22 11:36 FiO2 99 02/22/22 03:47 BMI result Body Mass Index 28.9 Appearance: Alert.? Oriented,? not in distress.? eye : left eye possible subconjuctval haemorrage cvs: [id number], [id number] res: fair air entry, no rales or wheezing abd: no rebound or guarding ,nt, bs present. ext pulses present , no cyanosis . ? Objective Data Active Medications Acetaminophen (Acetaminophen 325 Mg Tablet) 650 mg PO Q6H PRN PRN Reason: Pain, Mild (Pain Scale 1-3) Last Admin: 03/25/22 21:36 Dose: 650 mg Documented By: MORRINL Bumetanide (Bumetanide 1 Mg Tablet) 1 mg PO DAILY [facility]; Protocol Last Admin: 03/28/22 07:49 Dose: 1 mg Documented By: VALDEZ Erythromycin (Erythromycin Base 0.5% Oph Oin 1 Gm Tube) 1 cm EYE-LEFT QID [facility] Stop: 04/02/22 17:01 Last Admin: 03/28/22 07:50 Dose: 1 cm Documented By: VALDEZ Escitalopram Oxalate (Escitalopram Oxalate 10 Mg Tablet) 10 mg PO DAILY [facility] Last Admin: 03/28/22 07:49 Dose: 10 mg Documented By: VALDEZ Lidocaine (Lidocaine 4 % Patch Adh..Patch) 1 patch TRANSDERMA DAILY [facility]; Protocol Last Admin: 03/28/22 07:50 Dose: 1 patch Documented By: VALDEZ Metoprolol Tartrate (Metoprolol Tartrate 12.5 Mg Halftab) 12.5 mg PO BID [facility]; Protocol Last Admin: 03/28/22 07:48 Dose: 12.5 mg Documented By: VALDEZ Nystatin (Nystatin Powder 15 Gm Bottle) 1 appl TOPICAL TID [facility]; Protocol Last Admin: 03/28/22 09:39 Dose: 1 appl Documented By: VALDEZ Ondansetron HCl (Ondansetron Odt 4 Mg Tab.Rapdis) 4 mg TRANSLINGU Q6H PRN PRN Reason: Nausea and Vomiting Oxycodone HCl (Oxycodone Hcl Immed Release 5 Mg Tablet) 5 mg PO Q4H PRN PRN Reason: Pain, Moderate (Pain Scale 4-6 Last Admin: 03/28/22 13:53 Dose: 5 mg Documented By: VALDEZ Pharmacy Consult (Consult Rx Perform Med Rec) 1 each MISCELLANE ONCE PRN PRN Reason: Consult order Polyethylene Glycol (Polyethylene Glycol 3350 17 Gm Powd.Pack) 17 gm PO DAILY PRN PRN Reason: constipation Last Admin: 03/22/22 11:01 Dose: 17 gm Documented By: SHAN Potassium Chloride (Potassium Chloride Er 20 Meq Tab.Er.Prt) 40 meq PO DAILY [facility] Last Admin: 03/24/22 07:57 Dose: 40 meq Documented By: DIMPLE Quetiapine Fumarate (Quetiapine Fumarate 25 Mg Tablet) 12.5 mg PO BID PRN PRN Reason: anxiety, agitation Last Admin: 03/26/22 16:37 Dose: 12.5 mg Documented By: ROSALINE Sodium Chloride (0.9 % Sodium Chloride Flush 3 Ml Syringe) 3 ml IVFLUSH QSHIFT [facility] Last Admin: 03/28/22 07:48 Dose: Not Given Documented By: VALDEZ Non-Admin Reason: No Access Warfarin Sodium (Warfarin Sodium 3 Mg Tablet) 3 mg PO DAILY@1800 [facility] Last Admin: 03/27/22 17:37 Dose: 3 mg Documented By: VALDEZ Labs CBC & Chem 7: 03/05/22 06:20 03/28/22 07:46 Labs: Laboratory Results - last 24 hr 03/28/22 03/28/22 05:38 07:46 PT 28.6 H INR 2.4 H Anion Gap 13 Estim Creat Clear Calc 68.1 Estimated GFR > 60 Random Glucose 90 Calcium 8.0 L Assessment and Plan (1) Subconjunctival hemorrhage: Status: Acute (2) Chronic atrial fibrillation: Status: Acute Plan 81yo F with AF (persistent?) + HFpEF, initially was awaiting for LTC placement but became hypotensive and had positive UA concerning for infection, though ultimately grew coag-neg staph from urine and blood determined to be contaminant 1Chronic AFib -acceptable rate control on beta blockade -warfarin resumed, INR 2.3... no changes -PT/ INR daily 2.Chronic HFpEF -? asymptomatic - continue current therapies 3.Psoriatic arthritis - Lorcet 7.5/325 q.4 hours as needed, -adjust as indicated 4. left eye possible subconjuctval haemorrage : asymptomatic continue to moniter, tearop. VTE ppx: warfarin inpatient need: LTC placement, safe disposition Quality Stroke Does the patient have a stroke diagnosis?: No VTE Prior VTE?: No VTE Risk Level:: Medical - moderate - high VTE Device Contraindication: Treatment Not Indicated VTE Drug Contraindication: Treatment Not Indicated
[2022-03-28] MEDS: Warfarin Sodium 3 MG TABLET PO (17:52)
[2022-03-28] MEDS: Acetaminophen 325 MG TABLET 650 MG PO (20:43)
[2022-03-28] MEDS: QUEtiapine Fumarate 25 MG TABLET 12.5 MG PO (20:44)
[2022-03-29 03:10] VITALS: BP 115/55; PULSE 88; RESP 16; TEMP 36.2; O2SAT 98
[2022-03-29] MEDS: Acetaminophen 325 MG TABLET 650 MG PO ×3 (03:53→15:13)
[2022-03-29] MEDS: oxyCODONE HCl Immed Release 5 MG TABLET PO ×5 (05:47→22:51)
[2022-03-29 05:57] LABS: INTERNATIONAL NORM RATIO 2.5 (0.9-1.1); Prothrombin Time 30.4 SEC (10.0-13.1)
[2022-03-29 07:47] VITALS: BP 99/58; PULSE 77; RESP 17; TEMP 36.4; O2SAT 98
[2022-03-29] MEDS: Lidocaine 4 % Patch ADH..PATCH 1 PATCH TRANSDERMA (07:47)
[2022-03-29] MEDS: Nystatin Powder 15 GM BOTTLE 1 APPL TOPICAL ×3 (07:48→21:08)
[2022-03-29] MEDS: Escitalopram Oxalate 10 MG TABLET PO (07:49)
[2022-03-29] MEDS: Bumetanide 1 MG TABLET PO (07:51)
[2022-03-29] MEDS: Metoprolol Tartrate 12.5 MG HALFTAB PO (07:51)
--- NOTE | 2022-03-29 10:27 | HO.PM.IMPN ---
Subjective Subjective Date of Service: 03/29/22 Interval History: no new issues. Review of Systems Denies any chest pain or shortness of breath or abdominal pain. left eye possible subconjuctval haemorrage improving Physical Exam Vital Signs: Vital Signs: Last Vital Signs Temp 97.5 F 03/29/22 07:47 Pulse 77 03/29/22 07:47 Resp 17 03/29/22 07:47 BP 99/58 L 03/29/22 07:47 Pulse Ox 98 03/29/22 07:47 O2 Del Method 03/29/22 07:47 O2 Flow Rate 2.0 03/29/22 07:47 FiO2 99 02/22/22 03:47 BMI result Body Mass Index 28.9 Appearance: Alert.? Oriented,? not in distress.? eye : left eye possible subconjuctval haemorrage seems improving cvs: [id number], [id number] res: fair air entry, no rales or wheezing abd: no rebound or guarding ,nt, bs present. ext pulses present , no cyanosis . Objective Data Active Medications Acetaminophen (Acetaminophen 325 Mg Tablet) 650 mg PO Q6H PRN PRN Reason: Pain, Mild (Pain Scale 1-3) Last Admin: 03/29/22 09:33 Dose: 650 mg Documented By: JOHN Artificial Tears (Artificial Tears 15 Ml Drops) 1 drop EYE-BOTH Q4H PRN PRN Reason: Dry Eyes Bumetanide (Bumetanide 1 Mg Tablet) 1 mg PO DAILY [facility]; Protocol Last Admin: 03/29/22 07:51 Dose: 1 mg Documented By: JOHN Escitalopram Oxalate (Escitalopram Oxalate 10 Mg Tablet) 10 mg PO DAILY [facility] Last Admin: 03/29/22 07:49 Dose: 10 mg Documented By: JOHN Lidocaine (Lidocaine 4 % Patch Adh..Patch) 1 patch TRANSDERMA DAILY [facility]; Protocol Last Admin: 03/29/22 07:47 Dose: 1 patch Documented By: JOHN Metoprolol Tartrate (Metoprolol Tartrate 12.5 Mg Halftab) 12.5 mg PO BID [facility]; Protocol Last Admin: 03/29/22 07:51 Dose: 12.5 mg Documented By: JOHN Nystatin (Nystatin Powder 15 Gm Bottle) 1 appl TOPICAL TID [facility]; Protocol Last Admin: 03/29/22 07:48 Dose: 1 appl Documented By: JOHN Ondansetron HCl (Ondansetron Odt 4 Mg Tab.Rapdis) 4 mg TRANSLINGU Q6H PRN PRN Reason: Nausea and Vomiting Oxycodone HCl (Oxycodone Hcl Immed Release 5 Mg Tablet) 5 mg PO Q4H PRN PRN Reason: Pain, Moderate (Pain Scale 4-6 Last Admin: 03/29/22 09:33 Dose: 5 mg Documented By: JOHN Pharmacy Consult (Consult Rx Perform Med Rec) 1 each MISCELLANE ONCE PRN PRN Reason: Consult order Polyethylene Glycol (Polyethylene Glycol 3350 17 Gm Powd.Pack) 17 gm PO DAILY PRN PRN Reason: constipation Last Admin: 03/22/22 11:01 Dose: 17 gm Documented By: SHAN Potassium Chloride (Potassium Chloride Er 20 Meq Tab.Er.Prt) 40 meq PO DAILY [facility] Last Admin: 03/24/22 07:57 Dose: 40 meq Documented By: DIMPLE Quetiapine Fumarate (Quetiapine Fumarate 25 Mg Tablet) 12.5 mg PO BID PRN PRN Reason: anxiety, agitation Last Admin: 03/28/22 20:44 Dose: 12.5 mg Documented By: CASTILGenevieve Sodium Chloride (0.9 % Sodium Chloride Flush 3 Ml Syringe) 3 ml IVFLUSH QSHIFT [facility] Last Admin: 03/29/22 07:48 Dose: Not Given Documented By: JOHN Non-Admin Reason: No Access Warfarin Sodium (Warfarin Sodium 3 Mg Tablet) 3 mg PO DAILY@1800 [facility] Last Admin: 03/28/22 17:52 Dose: 3 mg Documented By: VALDEZ Labs CBC & Chem 7: 03/05/22 06:20 03/28/22 07:46 Labs: Laboratory Results - last 24 hr 03/29/22 05:27 PT 30.4 H INR 2.5 H Assessment and Plan (1) Subconjunctival hemorrhage: Status: Acute (2) Chronic atrial fibrillation: Status: Acute Plan 81yo F with AF (persistent?) + HFpEF, initially was awaiting for LTC placement but became hypotensive and had positive UA concerning for infection, though ultimately grew coag-neg staph from urine and blood determined to be contaminant 1Chronic AFib -acceptable rate control on beta blockade -warfarin resumed, INR 2.3... no changes -PT/ INR daily 2.Chronic HFpEF -? asymptomatic - continue current therapies 3.Psoriatic arthritis - Lorcet 7.5/325 q.4 hours as needed, -adjust as indicated 4. left eye possible subconjuctval haemorrage : asymptomatic continue to moniter, teardrop. VTE ppx: warfarin inpatient need: LTC placement, safe disposition Quality Stroke Does the patient have a stroke diagnosis?: No VTE Prior VTE?: No VTE Risk Level:: Medical - moderate - high VTE Device Contraindication: Treatment Not Indicated VTE Drug Contraindication: Treatment Not Indicated
[2022-03-29 11:34] VITALS: BP 89/50; PULSE 76; RESP 15; TEMP 36.6; O2SAT 98
[2022-03-29 15:21] VITALS: BP 92/52; PULSE 87; RESP 18; TEMP 36.4; O2SAT 91
[2022-03-29] MEDS: Warfarin Sodium 3 MG TABLET PO (17:20)
[2022-03-29 19:28] VITALS: BP 93/50; PULSE 80; RESP 17; TEMP 36.2; O2SAT 93
[2022-03-29] MEDS: QUEtiapine Fumarate 25 MG TABLET 12.5 MG PO (20:50)
[2022-03-29] MEDS: polyethylene glycoL 3350 17 GM POWD.PACK PO (23:02)
--- NOTE | 2022-03-29 23:29 | PC.NURSE ---
Noted pt's BP with systolic on the 90s since 7a, and 1 x 80s at noon, rest of vitals WNL, Dr. Shearer was informed whether or not to give scheduled Metoprolol, Manfred Weinstein said to hold med, encouraged po fluids. Pt also noticed to be asking for bedpan frequently to move her bowels but unsuccessful, Dr. Dhillon was notified, Miralax prn ordered, pt complied, awaiting for good effect.
[2022-03-30] VITALS (8 sets, daily range): BP systolic 90–118; BP diastolic 34–68; PULSE 75–99; RESP 14–18; TEMP 36.1–37.4; O2SAT 95–99
[2022-03-30] MEDS: oxyCODONE HCl Immed Release 5 MG TABLET PO ×5 (04:47→20:57)
[2022-03-30 07:20] LABS: INTERNATIONAL NORM RATIO 2.6 (0.9-1.1); Prothrombin Time 31.6 SEC (10.0-13.1)
[2022-03-30 08:20] LABS: INTERNATIONAL NORM RATIO 2.5 (0.9-1.1)
[2022-03-30] MEDS: Lidocaine 4 % Patch ADH..PATCH 1 PATCH TRANSDERMA (08:36)
[2022-03-30] MEDS: Metoprolol Tartrate 12.5 MG HALFTAB PO (08:36)
[2022-03-30] MEDS: Bumetanide 1 MG TABLET PO (08:36)
[2022-03-30] MEDS: Escitalopram Oxalate 10 MG TABLET PO (08:36)
[2022-03-30] MEDS: Nystatin Powder 15 GM BOTTLE 1 APPL TOPICAL ×3 (08:41→20:58)
--- NOTE | 2022-03-30 12:07 | P.PNIM_ITS ---
Subjective Subjective Date of Service: 03/30/22 Interval History: no new issues. Review of Systems Denies any chest pain or shortness of breath or abdominal pain. left eye possible subconjuctval haemorrage improving Physical Exam Vital Signs: Vital Signs: Last Vital Signs Temp 97.9 F 03/30/22 11:21 Pulse 75 03/30/22 11:21 Resp 18 03/30/22 11:21 BP 98/68 03/30/22 11:21 Pulse Ox 97 03/30/22 11:21 O2 Del Method 03/30/22 11:21 O2 Flow Rate 2.0 03/30/22 11:21 FiO2 99 02/22/22 03:47 BMI result Body Mass Index 28.9 Appearance: Alert.? Oriented,? not in distress.? eye : left eye possible subconjuctval haemorrage seems improving cvs: [id number], [id number] res: fair air entry, no rales or wheezing abd: no rebound or guarding ,nt, bs present. ext pulses present , no cyanosis . Objective Data Active Medications Acetaminophen (Acetaminophen 325 Mg Tablet) 650 mg PO Q6H PRN PRN Reason: Pain, Mild (Pain Scale 1-3) Last Admin: 03/29/22 15:13 Dose: 650 mg Documented By: JOHN Artificial Tears (Artificial Tears 15 Ml Drops) 1 drop EYE-BOTH Q4H PRN PRN Reason: Dry Eyes Bumetanide (Bumetanide 1 Mg Tablet) 1 mg PO DAILY [facility]; Protocol Last Admin: 03/30/22 08:36 Dose: 1 mg Documented By: ROSALINE Escitalopram Oxalate (Escitalopram Oxalate 10 Mg Tablet) 10 mg PO DAILY [facility] Last Admin: 03/30/22 08:36 Dose: 10 mg Documented By: ROSALINE Lidocaine (Lidocaine 4 % Patch Adh..Patch) 1 patch TRANSDERMA DAILY [facility]; Protocol Last Admin: 03/30/22 08:36 Dose: 1 patch Documented By: ROSALINE Metoprolol Tartrate (Metoprolol Tartrate 12.5 Mg Halftab) 12.5 mg PO BID [facility]; Protocol Last Admin: 03/30/22 08:36 Dose: 12.5 mg Documented By: ROSALINE Nystatin (Nystatin Powder 15 Gm Bottle) 1 appl TOPICAL TID [facility]; Protocol Last Admin: 03/30/22 08:41 Dose: 1 appl Documented By: ROSALINE Ondansetron HCl (Ondansetron Odt 4 Mg Tab.Rapdis) 4 mg TRANSLINGU Q6H PRN PRN Reason: Nausea and Vomiting Oxycodone HCl (Oxycodone Hcl Immed Release 5 Mg Tablet) 5 mg PO Q4H PRN PRN Reason: Pain, Moderate (Pain Scale 4-6 Last Admin: 03/30/22 08:36 Dose: 5 mg Documented By: ROSALINE Pharmacy Consult (Consult Rx Perform Med Rec) 1 each MISCELLANE ONCE PRN PRN Reason: Consult order Polyethylene Glycol (Polyethylene Glycol 3350 17 Gm Powd.Pack) 17 gm PO DAILY PRN PRN Reason: constipation Last Admin: 03/29/22 23:02 Dose: 17 gm Documented By: YOVANY Polyethylene Glycol (Polyethylene Glycol 3350 17 Gm Powd.Pack) 17 gm PO DAILY PRN PRN Reason: Constipation Potassium Chloride (Potassium Chloride Er 20 Meq Tab.Er.Prt) 40 meq PO DAILY [facility] Last Admin: 03/24/22 07:57 Dose: 40 meq Documented By: DIMPLE Quetiapine Fumarate (Quetiapine Fumarate 25 Mg Tablet) 12.5 mg PO BID PRN PRN Reason: anxiety, agitation Last Admin: 03/29/22 20:50 Dose: 12.5 mg Documented By: YOVANY Sodium Chloride (0.9 % Sodium Chloride Flush 3 Ml Syringe) 3 ml IVFLUSH QSHIFT [facility] Last Admin: 03/30/22 09:09 Dose: Not Given Documented By: ROSALINE Non-Admin Reason: No Access Warfarin Sodium (Warfarin Sodium 3 Mg Tablet) 3 mg PO DAILY@1800 [facility] Last Admin: 03/29/22 17:20 Dose: 3 mg Documented By: JOHN Labs CBC & Chem 7: 03/05/22 06:20 03/28/22 07:46 Labs: Laboratory Results - last 24 hr 03/30/22 03/30/22 06:02 07:49 PT 31.6 H 30.0 H INR 2.6 H 2.5 H Assessment and Plan (1) Subconjunctival hemorrhage: Status: Acute (2) Chronic atrial fibrillation: Status: Acute Plan 81yo F with AF (persistent?) + HFpEF, initially was awaiting for LTC placement but became hypotensive and had positive UA concerning for infection, though ultimately grew coag-neg staph from urine and blood determined to be contaminant 1Chronic AFib -acceptable rate control on beta blockade -warfarin resumed, INR 2.3... no changes -PT/ INR daily 2.Chronic HFpEF -? asymptomatic - continue current therapies 3.Psoriatic arthritis - Lorcet 7.5/325 q.4 hours as needed, -adjust as indicated 4. left eye possible subconjuctval haemorrage : asymptomatic continue to moniter, teardrop. VTE ppx: warfarin inpatient need: LTC placement, safe disposition Quality Stroke Does the patient have a stroke diagnosis?: No VTE Prior VTE?: No VTE Risk Level:: Medical - moderate - high VTE Device Contraindication: Treatment Not Indicated VTE Drug Contraindication: Treatment Not Indicated
[2022-03-30] MEDS: Acetaminophen 325 MG TABLET 650 MG PO ×2 (13:59→23:55)
[2022-03-30] MEDS: Warfarin Sodium 3 MG TABLET PO (17:11)
[2022-03-31] VITALS (7 sets, daily range): BP systolic 95–113; BP diastolic 51–65; PULSE 74–96; RESP 16–18; TEMP 36.3–36.8; O2SAT 94–97
[2022-03-31] MEDS: oxyCODONE HCl Immed Release 5 MG TABLET PO ×5 (01:01→20:18)
[2022-03-31 07:04] LABS: INTERNATIONAL NORM RATIO 2.5 (0.9-1.1); Prothrombin Time 30.1 SEC (10.0-13.1)
[2022-03-31] MEDS: Escitalopram Oxalate 10 MG TABLET PO (08:57)
[2022-03-31] MEDS: Bumetanide 1 MG TABLET PO (08:58)
[2022-03-31] MEDS: Lidocaine 4 % Patch ADH..PATCH 1 PATCH TRANSDERMA (08:58)
[2022-03-31] MEDS: Nystatin Powder 15 GM BOTTLE 1 APPL TOPICAL ×3 (08:59→20:55)
--- NOTE | 2022-03-31 11:05 | HO.PM.IMPN ---
Subjective Subjective Date of Service: 03/31/22 Interval History: no new issues. Review of Systems Denies any chest pain or shortness of breath or abdominal pain. left eye possible subconjuctval haemorrage improving Physical Exam Vital Signs: Vital Signs: Last Vital Signs Temp 97.8 F 03/31/22 07:19 Pulse 86 03/31/22 07:19 Resp 18 03/31/22 07:19 BP 95/51 L 03/31/22 07:19 Pulse Ox 97 03/31/22 07:19 O2 Del Method 03/31/22 07:19 O2 Flow Rate 2 03/31/22 07:19 FiO2 99 02/22/22 03:47 BMI result Body Mass Index 28.9 Appearance: Alert.? Oriented,? not in distress.? eye : left eye possible subconjuctval haemorrage seems improving cvs: [id number], [id number] res: fair air entry, no rales or wheezing abd: no rebound or guarding ,nt, bs present. ext pulses present , no cyanosis . Objective Data Active Medications Acetaminophen (Acetaminophen 325 Mg Tablet) 650 mg PO Q6H PRN PRN Reason: Pain, Mild (Pain Scale 1-3) Last Admin: 03/30/22 23:55 Dose: 650 mg Documented By: DEREK Artificial Tears (Artificial Tears 15 Ml Drops) 1 drop EYE-BOTH Q4H PRN PRN Reason: Dry Eyes Bumetanide (Bumetanide 1 Mg Tablet) 1 mg PO DAILY [facility]; Protocol Last Admin: 03/31/22 08:58 Dose: 1 mg Documented By: VALDEZ Escitalopram Oxalate (Escitalopram Oxalate 10 Mg Tablet) 10 mg PO DAILY [facility] Last Admin: 03/31/22 08:57 Dose: 10 mg Documented By: VALDEZ Lidocaine (Lidocaine 4 % Patch Adh..Patch) 1 patch TRANSDERMA DAILY [facility]; Protocol Last Admin: 03/31/22 08:58 Dose: 1 patch Documented By: VALDEZ Metoprolol Tartrate (Metoprolol Tartrate 12.5 Mg Halftab) 12.5 mg PO BID [facility]; Protocol Last Admin: 03/31/22 08:58 Dose: Not Given Documented By: VALDEZ Non-Admin Reason: BP decreased Nystatin (Nystatin Powder 15 Gm Bottle) 1 appl TOPICAL TID [facility]; Protocol Last Admin: 03/31/22 08:59 Dose: 1 appl Documented By: VALDEZ Ondansetron HCl (Ondansetron Odt 4 Mg Tab.Rapdis) 4 mg TRANSLINGU Q6H PRN PRN Reason: Nausea and Vomiting Oxycodone HCl (Oxycodone Hcl Immed Release 5 Mg Tablet) 5 mg PO Q4H PRN PRN Reason: Pain, Moderate (Pain Scale 4-6 Last Admin: 03/31/22 08:57 Dose: 5 mg Documented By: VALDEZ Pharmacy Consult (Consult Rx Perform Med Rec) 1 each MISCELLANE ONCE PRN PRN Reason: Consult order Polyethylene Glycol (Polyethylene Glycol 3350 17 Gm Powd.Pack) 17 gm PO DAILY PRN PRN Reason: constipation Last Admin: 03/29/22 23:02 Dose: 17 gm Documented By: YOVANY Polyethylene Glycol (Polyethylene Glycol 3350 17 Gm Powd.Pack) 17 gm PO DAILY PRN PRN Reason: Constipation Potassium Chloride (Potassium Chloride Er 20 Meq Tab.Er.Prt) 40 meq PO DAILY [facility] Last Admin: 03/24/22 07:57 Dose: 40 meq Documented By: DIMPLE Quetiapine Fumarate (Quetiapine Fumarate 25 Mg Tablet) 12.5 mg PO BID PRN PRN Reason: anxiety, agitation Last Admin: 03/29/22 20:50 Dose: 12.5 mg Documented By: YOVANY Sodium Chloride (0.9 % Sodium Chloride Flush 3 Ml Syringe) 3 ml IVFLUSH QSHIFT [facility] Last Admin: 03/31/22 07:30 Dose: Not Given Documented By: VALDEZ Non-Admin Reason: No Access Warfarin Sodium (Warfarin Sodium 3 Mg Tablet) 3 mg PO DAILY@1800 [facility] Last Admin: 03/30/22 17:11 Dose: 3 mg Documented By: ROSALINE Labs CBC & Chem 7: 03/05/22 06:20 03/28/22 07:46 Labs: Laboratory Results - last 24 hr 03/31/22 05:11 PT 30.1 H INR 2.5 H Assessment and Plan (1) Subconjunctival hemorrhage: Status: Acute (2) Chronic atrial fibrillation: Status: Acute Plan 81yo F with AF (persistent?) + HFpEF, initially was awaiting for LTC placement but became hypotensive and had positive UA concerning for infection, though ultimately grew coag-neg staph from urine and blood determined to be contaminant 1Chronic AFib -acceptable rate control on beta blockade -warfarin resumed, INR 2.3... no changes -PT/ INR daily 2.Chronic HFpEF -? asymptomatic - continue current therapies 3.Psoriatic arthritis - Lorcet 7.5/325 q.4 hours as needed, -adjust as indicated 4. left eye possible subconjuctval haemorrage : asymptomatic continue to valarie garcia. VTE ppx: warfarin inpatient need: LTC placement, safe disposition Quality Stroke Does the patient have a stroke diagnosis?: No VTE Prior VTE?: No VTE Risk Level:: Medical - moderate - high VTE Device Contraindication: Treatment Not Indicated VTE Drug Contraindication: Treatment Not Indicated
[2022-03-31] MEDS: Warfarin Sodium 3 MG TABLET PO (17:40)
[2022-03-31] MEDS: Acetaminophen 325 MG TABLET 650 MG PO (19:29)
[2022-03-31] MEDS: Metoprolol Tartrate 12.5 MG HALFTAB PO (20:55)
[2022-03-31] MEDS: polyethylene glycoL 3350 17 GM POWD.PACK PO (21:38)
[2022-04-01] MEDS: oxyCODONE HCl Immed Release 5 MG TABLET PO ×4 (00:57→21:28)
[2022-04-01 03:54] VITALS: BP 115/60; PULSE 52; RESP 17; TEMP 36.3; O2SAT 95
[2022-04-01 06:23] LABS: INTERNATIONAL NORM RATIO 2.4 (0.9-1.1); Prothrombin Time 28.3 SEC (10.0-13.1)
[2022-04-01 07:13] VITALS: BP 102/59; PULSE 83; RESP 18; TEMP 36.2; O2SAT 98
[2022-04-01] MEDS: Metoprolol Tartrate 12.5 MG HALFTAB PO (08:57)
[2022-04-01] MEDS: Escitalopram Oxalate 10 MG TABLET PO (08:58)
[2022-04-01] MEDS: Bumetanide 1 MG TABLET PO (08:58)
[2022-04-01] MEDS: Lidocaine 4 % Patch ADH..PATCH 1 PATCH TRANSDERMA (08:58)
[2022-04-01] MEDS: 0.9 % Sodium Chloride Flush 3 ML SYRINGE IVFLUSH (08:59)
[2022-04-01] MEDS: Nystatin Powder 15 GM BOTTLE 1 APPL TOPICAL ×3 (08:59→21:34)
--- NOTE | 2022-04-01 10:21 | HO.PM.IMPN ---
Subjective Subjective Date of Service: 04/01/22 Interval History: the patient was seen and evaluated this morning Laying in bed, feels comfortable Denies shortness of breath, take care of the oxygen and monitor No reported other overnight events. Systemic review: No fever, chills or weakness No chest pain, palpitation No shortness of breath or coughing No abdominal pain, nausea or vomiting No urinary symptoms No any rash or wounds Physical Exam Vital Signs: Vital Signs: Last Vital Signs Temp 97.1 F 04/01/22 07:13 Pulse 83 04/01/22 07:13 Resp 18 04/01/22 07:13 BP 102/59 L 04/01/22 07:13 Pulse Ox 98 04/01/22 07:13 O2 Del Method 04/01/22 07:13 O2 Flow Rate 2 04/01/22 07:13 FiO2 99 02/22/22 03:47 BMI result Body Mass Index 28.9 Const: Other: Constitutional : Alert, interactive, not in distress Neck : Normal inspection, Supple Cardiovascular : RRR, no JVP, no lower extremity edema Respiratory : fair bilateral air entry, no crackles, wheezes or rhonchi, with oxygen supplement Gastrointestinal: soft, lax, Normal bowel sounds, Non tender Skin : Warm, Dry skin Neurological : Alert & oriented to self and place, No focal deficit Objective Data Active Medications Acetaminophen (Acetaminophen 325 Mg Tablet) 650 mg PO Q6H PRN PRN Reason: Pain, Mild (Pain Scale 1-3) Last Admin: 03/31/22 19:29 Dose: 650 mg Documented By: DEREK Artificial Tears (Artificial Tears 15 Ml Drops) 1 drop EYE-BOTH Q4H PRN PRN Reason: Dry Eyes Bumetanide (Bumetanide 1 Mg Tablet) 1 mg PO DAILY [facility]; Protocol Last Admin: 04/01/22 08:58 Dose: 1 mg Documented By: VALDEZ Escitalopram Oxalate (Escitalopram Oxalate 10 Mg Tablet) 10 mg PO DAILY NORM Last Admin: 04/01/22 08:58 Dose: 10 mg Documented By: VALDEZ Lidocaine (Lidocaine 4 % Patch Adh..Patch) 1 patch TRANSDERMA DAILY [facility]; Protocol Last Admin: 04/01/22 08:58 Dose: 1 patch Documented By: VALDEZ Metoprolol Tartrate (Metoprolol Tartrate 12.5 Mg Halftab) 12.5 mg PO BID [facility]; Protocol Last Admin: 04/01/22 08:57 Dose: 12.5 mg Documented By: VALDEZ Nystatin (Nystatin Powder 15 Gm Bottle) 1 appl TOPICAL TID [facility]; Protocol Last Admin: 04/01/22 08:59 Dose: 1 appl Documented By: VALDEZ Ondansetron HCl (Ondansetron Odt 4 Mg Tab.Rapdis) 4 mg TRANSLINGU Q6H PRN PRN Reason: Nausea and Vomiting Oxycodone HCl (Oxycodone Hcl Immed Release 5 Mg Tablet) 5 mg PO Q4H PRN PRN Reason: Pain, Moderate (Pain Scale 4-6 Last Admin: 04/01/22 08:57 Dose: 5 mg Documented By: VALDEZ Pharmacy Consult (Consult Rx Perform Med Rec) 1 each MISCELLANE ONCE PRN PRN Reason: Consult order Polyethylene Glycol (Polyethylene Glycol 3350 17 Gm Powd.Pack) 17 gm PO DAILY PRN PRN Reason: constipation Last Admin: 03/31/22 21:38 Dose: 17 gm Documented By: DEREK Polyethylene Glycol (Polyethylene Glycol 3350 17 Gm Powd.Pack) 17 gm PO DAILY PRN PRN Reason: Constipation Potassium Chloride (Potassium Chloride Er 20 Meq Tab.Er.Prt) 40 meq PO DAILY [facility] Last Admin: 03/24/22 07:57 Dose: 40 meq Documented By: DIMPLE Quetiapine Fumarate (Quetiapine Fumarate 25 Mg Tablet) 12.5 mg PO BID PRN PRN Reason: anxiety, agitation Last Admin: 03/29/22 20:50 Dose: 12.5 mg Documented By: YOVANY Sodium Chloride (0.9 % Sodium Chloride Flush 3 Ml Syringe) 3 ml IVFLUSH QSHIFT [facility] Last Admin: 04/01/22 08:59 Dose: 3 ml Documented By: VALDEZ Warfarin Sodium (Warfarin Sodium 3 Mg Tablet) 3 mg PO DAILY@1800 [facility] Last Admin: 03/31/22 17:40 Dose: 3 mg Documented By: VALDEZ Labs CBC & Chem 7: 03/05/22 06:20 03/28/22 07:46 Labs: Laboratory Results - last 24 hr 04/01/22 04/01/22 05:20 05:20 PT 29.0 H 28.3 H INR 2.4 H 2.4 H Assessment and Plan (1) Subconjunctival hemorrhage: Status: Acute (2) Psoriatic arthritis: Status: Acute (3) Chronic atrial fibrillation: Status: Acute Plan 81yo F with AF (persistent?) + HFpEF, initially was awaiting for LTC placement but became hypotensive and had positive UA concerning for infection, though ultimately grew coag-neg staph from urine and blood determined to be contaminant # Chronic AFib Rate controlled on beta blockade Continue warfarin PT/ INR daily # Chronic HFpEF Not in exacerbation Bumex dose decreased to 1 mg daily from 3 mg b.i.d. at home for more than 3 weeks now continue current therapies # Psoriatic arthritis Pain medication as needed adjust as indicated # left eye possible subconjuctval haemorrage asymptomatic continue to moniter, teardrop. VTE ppx warfarin inpatient need: LTC placement, safe disposition Quality Stroke Does the patient have a stroke diagnosis?: No VTE Prior VTE?: No VTE Risk Level:: Medical - moderate - high VTE Device Contraindication: Treatment Not Indicated VTE Drug Contraindication: Treatment Not Indicated
[2022-04-01 11:28] VITALS: BP 104/52; PULSE 90; RESP 18; TEMP 37.1; O2SAT 92
[2022-04-01] MEDS: Acetaminophen 325 MG TABLET 650 MG PO ×2 (12:03→17:54)
[2022-04-01 15:20] VITALS: BP 92/58; PULSE 83; RESP 18; TEMP 37; O2SAT 95
[2022-04-01] MEDS: Warfarin Sodium 3 MG TABLET PO (17:54)
[2022-04-01 20:00] VITALS: BP 99/53; PULSE 93; RESP 17; TEMP 36.3; O2SAT 95
[2022-04-02] VITALS: BP 120/61; PULSE 87; RESP 17; TEMP 36.1; O2SAT 95
[2022-04-02] MEDS: Acetaminophen 325 MG TABLET 650 MG PO ×2 (00:51→22:04)
[2022-04-02] MEDS: oxyCODONE HCl Immed Release 5 MG TABLET PO ×3 (02:01→16:03)
[2022-04-02 06:04] LABS: INTERNATIONAL NORM RATIO 3.1 (0.9-1.1); Prothrombin Time 37.6 SEC (10.0-13.1)
[2022-04-02 07:30] VITALS: BP 115/62; PULSE 82; RESP 18; TEMP 37.1; O2SAT 94
--- NOTE | 2022-04-02 08:48 | MHC.CLN ---
F/U DIET=CARDIAC. SUPPLEMENT ENSURE BID PROVIDES ADDITIONAL 700 KCALS, 40 G PROTEIN. SKIN WITH STAGE II TO BILATERAL BUTTOCKS. SUPPLEMENT APPROPRIATE TO PROMOTE WOUND HEALING. INTAKE APPEARS GOOD WITH MOST MEALS 75-100%. CONTINUE TO FOLLOW FOR INTAKE AND WOUND HEALING. RD TO FOLLOW WEEKLY.
[2022-04-02] MEDS: polyethylene glycoL 3350 17 GM POWD.PACK PO (10:33)
[2022-04-02] MEDS: Bumetanide 1 MG TABLET PO (10:34)
[2022-04-02] MEDS: Lidocaine 4 % Patch ADH..PATCH 1 PATCH TRANSDERMA (10:34)
[2022-04-02] MEDS: Metoprolol Tartrate 12.5 MG HALFTAB PO ×2 (10:34→22:02)
[2022-04-02] MEDS: Escitalopram Oxalate 10 MG TABLET PO (10:34)
[2022-04-02] MEDS: Nystatin Powder 15 GM BOTTLE 1 APPL TOPICAL ×3 (10:35→22:04)
[2022-04-02 11:09] VITALS: BP 120/68; PULSE 89; RESP 18; TEMP 36.8; O2SAT 93
--- NOTE | 2022-04-02 11:20 | HO.PM.IMPN ---
Subjective Subjective Date of Service: 04/02/22 Interval History: the patient was seen and evaluated this morning Laying in bed, feels comfortable Denies shortness of breath, take care of the oxygen and monitor No reported other overnight events. Systemic review: No fever, chills or weakness No chest pain, palpitation No shortness of breath or coughing No abdominal pain, nausea or vomiting No urinary symptoms No any rash or wounds Physical Exam Vital Signs: Vital Signs: Last Vital Signs Temp 98.2 F 04/02/22 11:09 Pulse 89 04/02/22 11:09 Resp 18 04/02/22 11:09 BP 120/68 04/02/22 11:09 Pulse Ox 93 04/02/22 11:09 O2 Del Method 04/02/22 11:09 O2 Flow Rate 2 04/02/22 00:00 FiO2 99 02/22/22 03:47 BMI result Body Mass Index 28.9 Const: Other: Constitutional : Alert, interactive, not in distress Neck : Normal inspection, Supple Cardiovascular : RRR, no JVP, no lower extremity edema Respiratory : fair bilateral air entry, no crackles, wheezes or rhonchi, with oxygen supplement Gastrointestinal: soft, lax, Normal bowel sounds, Non tender Skin : Warm, Dry skin Neurological : Alert & oriented to self and place, No focal deficit Objective Data Active Medications Acetaminophen (Acetaminophen 325 Mg Tablet) 650 mg PO Q6H PRN PRN Reason: Pain, Mild (Pain Scale 1-3) Last Admin: 04/02/22 00:51 Dose: 650 mg Documented By: BA Artificial Tears (Artificial Tears 15 Ml Drops) 1 drop EYE-BOTH Q4H PRN PRN Reason: Dry Eyes Bumetanide (Bumetanide 1 Mg Tablet) 1 mg PO DAILY [facility]; Protocol Last Admin: 04/02/22 10:34 Dose: 1 mg Documented By: SIERRA Escitalopram Oxalate (Escitalopram Oxalate 10 Mg Tablet) 10 mg PO DAILY NORM Last Admin: 04/02/22 10:34 Dose: 10 mg Documented By: SIERRA Lidocaine (Lidocaine 4 % Patch Adh..Patch) 1 patch TRANSDERMA DAILY [facility]; Protocol Last Admin: 04/02/22 10:34 Dose: 1 patch Documented By: SIERRA Metoprolol Tartrate (Metoprolol Tartrate 12.5 Mg Halftab) 12.5 mg PO BID [facility]; Protocol Last Admin: 04/02/22 10:34 Dose: 12.5 mg Documented By: SIERRA Nystatin (Nystatin Powder 15 Gm Bottle) 1 appl TOPICAL TID [facility]; Protocol Last Admin: 04/02/22 10:35 Dose: 1 appl Documented By: SIERRA Ondansetron HCl (Ondansetron Odt 4 Mg Tab.Rapdis) 4 mg TRANSLINGU Q6H PRN PRN Reason: Nausea and Vomiting Oxycodone HCl (Oxycodone Hcl Immed Release 5 Mg Tablet) 5 mg PO Q4H PRN PRN Reason: Pain, Moderate (Pain Scale 4-6 Last Admin: 04/02/22 10:34 Dose: 5 mg Documented By: SIERRA Pharmacy Consult (Consult Rx Perform Med Rec) 1 each MISCELLANE ONCE PRN PRN Reason: Consult order Polyethylene Glycol (Polyethylene Glycol 3350 17 Gm Powd.Pack) 17 gm PO DAILY PRN PRN Reason: constipation Last Admin: 04/02/22 10:33 Dose: 17 gm Documented By: SIERRA Polyethylene Glycol (Polyethylene Glycol 3350 17 Gm Powd.Pack) 17 gm PO DAILY PRN PRN Reason: Constipation Potassium Chloride (Potassium Chloride Er 20 Meq Tab.Er.Prt) 40 meq PO DAILY [facility] Last Admin: 03/24/22 07:57 Dose: 40 meq Documented By: DIMPLE Quetiapine Fumarate (Quetiapine Fumarate 25 Mg Tablet) 12.5 mg PO BID PRN PRN Reason: anxiety, agitation Last Admin: 03/29/22 20:50 Dose: 12.5 mg Documented By: YOVANY Sodium Chloride (0.9 % Sodium Chloride Flush 3 Ml Syringe) 3 ml IVFLUSH QSHIFT [facility] Last Admin: 04/02/22 10:27 Dose: Not Given Documented By: SIERRA Non-Admin Reason: No Access Warfarin Sodium (Warfarin Sodium 3 Mg Tablet) 3 mg PO DAILY@1800 [facility] Last Admin: 04/01/22 17:54 Dose: 3 mg Documented By: VALDEZ Warfarin Sodium (Warfarin Sodium 0.5 Mg Halftab) 1.5 mg PO ONCE@1800 ONE Stop: 04/02/22 18:01 Labs CBC & Chem 7: 03/05/22 06:20 03/28/22 07:46 Labs: Laboratory Results - last 24 hr 04/02/22 05:26 PT 37.6 H INR 3.1 H Assessment and Plan (1) Subconjunctival hemorrhage: Status: Acute (2) Psoriatic arthritis: Status: Acute (3) Chronic atrial fibrillation: Status: Acute Plan 81yo F with AF (persistent?) + HFpEF, initially was awaiting for LTC placement but became hypotensive and had positive UA concerning for infection, though ultimately grew coag-neg staph from urine and blood determined to be contaminant # Chronic AFib Rate controlled on beta blockade Continue warfarin PT/ INR daily # Chronic HFpEF Not in exacerbation Bumex dose decreased to 1 mg daily from 3 mg b.i.d. at home continue current therapies # Psoriatic arthritis Pain medication as needed adjust as indicated # left eye possible subconjuctval haemorrage asymptomatic continue to moniter, teardrop. VTE ppx warfarin inpatient need: LTC placement, safe disposition Quality Stroke Does the patient have a stroke diagnosis?: No VTE Prior VTE?: No VTE Risk Level:: Medical - moderate - high VTE Device Contraindication: Treatment Not Indicated VTE Drug Contraindication: Treatment Not Indicated
--- NOTE | 2022-04-02 15:06 | MHC.CM.PN ---
VICENTE SPOKE WITH SHERYL DELGADILLO FROM [employer] WHO REPORTS SHE HAS NOT RECEIVED ANY OF THE NECESSARY PAPERWORK FROM PT'S DAUGHTER TO COMPLETE MH APPLICATION. PER CM DIRECTOR D/T HER DAUGHTER NOT PROVIDING THE FINANCIAL DOCUMENTS NEEDED AFTER 5 WEEKS, [facility] WILL BE GOING FOR CONSERVATORSHIP
[2022-04-02 15:27] VITALS: BP 114/64; PULSE 99; RESP 18; TEMP 36.1; O2SAT 94
[2022-04-02] MEDS: Warfarin Sodium 0.5 MG HALFTAB 1.5 MG PO (17:39)
[2022-04-02 19:21] VITALS: BP 117/71; RESP 89; TEMP 36.7; O2SAT 93
[2022-04-02 23:16] VITALS: BP 104/55; PULSE 110; RESP 16; TEMP 36.1; O2SAT 94
[2022-04-03] VITALS (7 sets, daily range): BP systolic 96–137; BP diastolic 51–91; PULSE 69–97; RESP 16–18; TEMP 36–37.1; O2SAT 92–97
[2022-04-03] MEDS: QUEtiapine Fumarate 25 MG TABLET 12.5 MG PO (00:23)
[2022-04-03] MEDS: 0.9 % Sodium Chloride Flush 3 ML SYRINGE IVFLUSH (00:59)
[2022-04-03] MEDS: Ondansetron ODT 4 MG TAB.RAPDIS TRANSLINGU (04:51)
[2022-04-03 06:25] LABS: INTERNATIONAL NORM RATIO 2.2 (0.9-1.1); Prothrombin Time 25.8 SEC (10.0-13.1)
--- NOTE | 2022-04-03 09:37 | HO.PM.IMPN ---
Subjective Subjective Date of Service: 04/03/22 Interval History: the patient was seen and evaluated this morning Laying in bed, feels comfortable Denies shortness of breath, take care of the oxygen and monitor No reported other overnight events. Systemic review: No fever, chills or weakness No chest pain, palpitation No shortness of breath or coughing No abdominal pain, nausea or vomiting No urinary symptoms No any rash or wounds Physical Exam Vital Signs: Vital Signs: Last Vital Signs Temp 96.9 F 04/03/22 07:26 Pulse 85 04/03/22 07:26 Resp 18 04/03/22 07:26 BP 121/71 04/03/22 07:26 Pulse Ox 97 04/03/22 07:26 O2 Del Method 04/03/22 07:26 O2 Flow Rate 1 04/03/22 07:26 FiO2 99 02/22/22 03:47 BMI result Body Mass Index 28.9 Const: Other: Constitutional : Alert, interactive, not in distress Neck : Normal inspection, Supple Cardiovascular : RRR, no JVP, no lower extremity edema Respiratory : fair bilateral air entry, no crackles, wheezes or rhonchi, with oxygen supplement Gastrointestinal: soft, lax, Normal bowel sounds, Non tender Skin : Warm, Dry skin Neurological : Alert & oriented to self and place, No focal deficit Objective Data Active Medications Acetaminophen (Acetaminophen 325 Mg Tablet) 650 mg PO Q6H PRN PRN Reason: Pain, Mild (Pain Scale 1-3) Last Admin: 04/02/22 22:04 Dose: 650 mg Documented By: HOLLY Artificial Tears (Artificial Tears 15 Ml Drops) 1 drop EYE-BOTH Q4H PRN PRN Reason: Dry Eyes Bumetanide (Bumetanide 1 Mg Tablet) 1 mg PO DAILY [facility]; Protocol Last Admin: 04/02/22 10:34 Dose: 1 mg Documented By: SIERRA Escitalopram Oxalate (Escitalopram Oxalate 10 Mg Tablet) 10 mg PO DAILY [facility] Last Admin: 04/02/22 10:34 Dose: 10 mg Documented By: SIERRA Lidocaine (Lidocaine 4 % Patch Adh..Patch) 1 patch TRANSDERMA DAILY [facility]; Protocol Last Admin: 04/02/22 10:34 Dose: 1 patch Documented By: SIERRA Metoprolol Tartrate (Metoprolol Tartrate 12.5 Mg Halftab) 12.5 mg PO BID [facility]; Protocol Last Admin: 04/02/22 22:02 Dose: 12.5 mg Documented By: HOLLY Nystatin (Nystatin Powder 15 Gm Bottle) 1 appl TOPICAL TID [facility]; Protocol Last Admin: 04/02/22 22:04 Dose: 1 appl Documented By: HOLLY Ondansetron HCl (Ondansetron Odt 4 Mg Tab.Rapdis) 4 mg TRANSLINGU Q6H PRN PRN Reason: Nausea and Vomiting Last Admin: 04/03/22 04:51 Dose: 4 mg Documented By: DANE Pharmacy Consult (Consult Rx Perform Med Rec) 1 each MISCELLANE ONCE PRN PRN Reason: Consult order Polyethylene Glycol (Polyethylene Glycol 3350 17 Gm Powd.Pack) 17 gm PO DAILY PRN PRN Reason: constipation Last Admin: 04/02/22 10:33 Dose: 17 gm Documented By: SIERRA Polyethylene Glycol (Polyethylene Glycol 3350 17 Gm Powd.Pack) 17 gm PO DAILY PRN PRN Reason: Constipation Potassium Chloride (Potassium Chloride Er 20 Meq Tab.Er.Prt) 40 meq PO DAILY [facility] Last Admin: 03/24/22 07:57 Dose: 40 meq Documented By: DIMPLE Quetiapine Fumarate (Quetiapine Fumarate 25 Mg Tablet) 12.5 mg PO BID PRN PRN Reason: anxiety, agitation Last Admin: 04/03/22 00:23 Dose: 12.5 mg Documented By: DANE Sodium Chloride (0.9 % Sodium Chloride Flush 3 Ml Syringe) 3 ml IVFLUSH QSHIFT [facility] Last Admin: 04/03/22 09:05 Dose: Not Given Documented By: SIERRA Non-Admin Reason: No Access Warfarin Sodium (Warfarin Sodium 3 Mg Tablet) 3 mg PO DAILY@1800 [facility] Last Admin: 04/01/22 17:54 Dose: 3 mg Documented By: VALDEZ Labs CBC & Chem 7: 03/05/22 06:20 03/28/22 07:46 Labs: Laboratory Results - last 24 hr 04/03/22 05:45 PT 25.8 H INR 2.2 H Assessment and Plan (1) Subconjunctival hemorrhage: Status: Acute (2) Psoriatic arthritis: Status: Acute (3) Chronic atrial fibrillation: Status: Acute Plan 81yo F with AF (persistent?) + HFpEF, initially was awaiting for LTC placement but became hypotensive and had positive UA concerning for infection, though ultimately grew coag-neg staph from urine and blood determined to be contaminant # Chronic AFib Rate controlled on beta blockade Continue warfarin PT/ INR daily # Chronic HFpEF Not in exacerbation Bumex dose decreased to 1 mg daily from 3 mg b.i.d. at home continue current therapies # Psoriatic arthritis Pain medication as needed adjust as indicated # left eye possible subconjuctval haemorrage asymptomatic continue to [employer]. VTE ppx warfarin inpatient need: LTC placement, safe disposition Quality Stroke Does the patient have a stroke diagnosis?: No VTE Prior VTE?: No VTE Risk Level:: Medical - moderate - high VTE Device Contraindication: Treatment Not Indicated VTE Drug Contraindication: Treatment Not Indicated
[2022-04-03] MEDS: Metoprolol Tartrate 12.5 MG HALFTAB PO ×2 (10:13→20:33)
[2022-04-03] MEDS: Bumetanide 1 MG TABLET PO (10:13)
[2022-04-03] MEDS: Lidocaine 4 % Patch ADH..PATCH 1 PATCH TRANSDERMA (10:13)
[2022-04-03] MEDS: Escitalopram Oxalate 10 MG TABLET PO (10:13)
[2022-04-03] MEDS: Nystatin Powder 15 GM BOTTLE 1 APPL TOPICAL ×2 (10:17→20:34)
[2022-04-03] MEDS: oxyCODONE HCl Immed Release 5 MG TABLET PO ×3 (12:06→20:33)
[2022-04-03] MEDS: Acetaminophen 325 MG TABLET 650 MG PO (14:02)
[2022-04-03] MEDS: Warfarin Sodium 3 MG TABLET PO (16:37)
[2022-04-04 04:00] VITALS: BP 103/59; PULSE 76; RESP 18; TEMP 36; O2SAT 95
[2022-04-04] MEDS: oxyCODONE HCl Immed Release 5 MG TABLET PO ×4 (06:37→22:41)
[2022-04-04 06:42] LABS: INTERNATIONAL NORM RATIO 2.3 (0.9-1.1); Prothrombin Time 27.4 SEC (10.0-13.1)
[2022-04-04 07:18] VITALS: BP 104/62; PULSE 83; RESP 16; TEMP 36; O2SAT 98
[2022-04-04] MEDS: Acetaminophen 325 MG TABLET 650 MG PO ×2 (09:04→21:52)
[2022-04-04] MEDS: Bumetanide 1 MG TABLET PO (09:04)
[2022-04-04] MEDS: Escitalopram Oxalate 10 MG TABLET PO (09:04)
[2022-04-04] MEDS: Metoprolol Tartrate 12.5 MG HALFTAB PO (09:04)
[2022-04-04] MEDS: Lidocaine 4 % Patch ADH..PATCH 1 PATCH TRANSDERMA (09:05)
[2022-04-04] MEDS: Nystatin Powder 15 GM BOTTLE 1 APPL TOPICAL ×3 (09:06→19:59)
[2022-04-04 11:20] VITALS: BP 117/65; PULSE 76; RESP 18; TEMP 36.2; O2SAT 97
--- NOTE | 2022-04-04 11:33 | HO.PM.IMPN ---
Subjective Subjective Date of Service: 04/04/22 Interval History: the patient was seen and evaluated this morning Laying in bed, feels comfortable Denies shortness of breath, take care of the oxygen and monitor No reported other overnight events. Systemic review: No fever, chills or weakness No chest pain, palpitation No shortness of breath or coughing No abdominal pain, nausea or vomiting No urinary symptoms No any rash or wounds Physical Exam Vital Signs: Vital Signs: Last Vital Signs Temp 97.1 F 04/04/22 11:20 Pulse 76 04/04/22 11:20 Resp 70 H 04/04/22 11:20 BP 117/65 04/04/22 11:20 Pulse Ox 97 04/04/22 11:20 O2 Del Method 04/04/22 11:20 O2 Flow Rate 1 04/04/22 11:20 FiO2 99 02/22/22 03:47 BMI result Body Mass Index 28.9 Const: Other: Constitutional : Alert, interactive, not in distress Neck : Normal inspection, Supple Cardiovascular : RRR, no JVP, no lower extremity edema Respiratory : fair bilateral air entry, no crackles, wheezes or rhonchi, with oxygen supplement Gastrointestinal: soft, lax, Normal bowel sounds, Non tender Skin : Warm, Dry skin Neurological : Alert & oriented to self and place, No focal deficit Objective Data Active Medications Acetaminophen (Acetaminophen 325 Mg Tablet) 650 mg PO Q6H PRN PRN Reason: Pain, Mild (Pain Scale 1-3) Last Admin: 04/04/22 09:04 Dose: 650 mg Documented By: MILLIE Artificial Tears (Artificial Tears 15 Ml Drops) 1 drop EYE-BOTH Q4H PRN PRN Reason: Dry Eyes Bumetanide (Bumetanide 1 Mg Tablet) 1 mg PO DAILY [facility]; Protocol Last Admin: 04/04/22 09:04 Dose: 1 mg Documented By: MILLIE Escitalopram Oxalate (Escitalopram Oxalate 10 Mg Tablet) 10 mg PO DAILY [facility] Last Admin: 04/04/22 09:04 Dose: 10 mg Documented By: MILLIE Lidocaine (Lidocaine 4 % Patch Adh..Patch) 1 patch TRANSDERMA DAILY [facility]; Protocol Last Admin: 04/04/22 09:05 Dose: 1 patch Documented By: MILLIE Metoprolol Tartrate (Metoprolol Tartrate 12.5 Mg Halftab) 12.5 mg PO BID [facility]; Protocol Last Admin: 04/04/22 09:04 Dose: 12.5 mg Documented By: MILLIE Nystatin (Nystatin Powder 15 Gm Bottle) 1 appl TOPICAL TID [facility]; Protocol Last Admin: 04/04/22 09:06 Dose: 1 appl Documented By: MILLIE Ondansetron HCl (Ondansetron Odt 4 Mg Tab.Rapdis) 4 mg TRANSLINGU Q6H PRN PRN Reason: Nausea and Vomiting Last Admin: 04/03/22 04:51 Dose: 4 mg Documented By: DANE Oxycodone HCl (Oxycodone Hcl Immed Release 5 Mg Tablet) 5 mg PO Q4H PRN PRN Reason: moderate pain Last Admin: 04/04/22 06:37 Dose: 5 mg Documented By: ERICKSON Pharmacy Consult (Consult Rx Perform Med Rec) 1 each MISCELLANE ONCE PRN PRN Reason: Consult order Polyethylene Glycol (Polyethylene Glycol 3350 17 Gm Powd.Pack) 17 gm PO DAILY PRN PRN Reason: constipation Last Admin: 04/02/22 10:33 Dose: 17 gm Documented By: SIERRA Polyethylene Glycol (Polyethylene Glycol 3350 17 Gm Powd.Pack) 17 gm PO DAILY PRN PRN Reason: Constipation Potassium Chloride (Potassium Chloride Er 20 Meq Tab.Er.Prt) 40 meq PO DAILY [facility] Last Admin: 03/24/22 07:57 Dose: 40 meq Documented By: DIMPLE Quetiapine Fumarate (Quetiapine Fumarate 25 Mg Tablet) 12.5 mg PO BID PRN PRN Reason: anxiety, agitation Last Admin: 04/03/22 00:23 Dose: 12.5 mg Documented By: DANE Sodium Chloride (0.9 % Sodium Chloride Flush 3 Ml Syringe) 3 ml IVFLUSH QSHIFT [facility] Last Admin: 04/04/22 09:05 Dose: Not Given Documented By: MILLIE Non-Admin Reason: No Access Warfarin Sodium (Warfarin Sodium 3 Mg Tablet) 3 mg PO DAILY@1800 [facility] Last Admin: 04/03/22 16:37 Dose: 3 mg Documented By: HOLLY Labs CBC & Chem 7: 03/05/22 06:20 03/28/22 07:46 Labs: Laboratory Results - last 24 hr 04/04/22 05:35 PT 27.4 H INR 2.3 H Assessment and Plan (1) Subconjunctival hemorrhage: Status: Acute (2) Psoriatic arthritis: Status: Acute (3) Chronic atrial fibrillation: Status: Acute Plan 81yo F with AF (persistent?) + HFpEF, initially was awaiting for LTC placement but became hypotensive and had positive UA concerning for infection, though ultimately grew coag-neg staph from urine and blood determined to be contaminant # Chronic AFib Rate controlled on beta blockade Continue warfarin PT/ INR daily # Chronic HFpEF Not in exacerbation Bumex dose decreased to 1 mg daily from 3 mg b.i.d. at home continue current therapies # Psoriatic arthritis Pain medication as needed adjust as indicated # left eye possible subconjuctval haemorrage asymptomatic continue to monit[employer]. VTE ppx warfarin inpatient need: LTC placement, safe disposition Quality Stroke Does the patient have a stroke diagnosis?: No VTE Prior VTE?: No VTE Risk Level:: Medical - moderate - high VTE Device Contraindication: Treatment Not Indicated VTE Drug Contraindication: Treatment Not Indicated
--- NOTE | 2022-04-04 13:56 | MHC.CM.PN ---
CM MET W/PT TO DISCUSS DISPO HER IS AT [facility] AND D/T DTRS RESTRAINING ORDER AGAINST PT'S DTR WOULD NOT BE ABLE TO VISIT, PER PT SHE DOES NOT WANT TO BE IN THE SAME SNF HER AND WILL WANT TO GO SOMEWHERE HER DTR IS ABLE TO VISIT, PT ALSO REPORTS HER DTR DID SUBMIT DOCUMENTS TO AND CM AWAITING TO HEAR FROM FS THEY HAD PREVIOUSLY REPORTED NOTHING HAD BEEN SUBMITTED, PER CM DIRECTOR IF PAPERWORK NOT SUBMITTED [facility] WILL GO FOR CONSERVATORSHIP. CM WILL CONT TO FOLLOW
[2022-04-04 15:21] VITALS: BP 106/58; PULSE 98; RESP 19; TEMP 36.2; O2SAT 95
[2022-04-04] MEDS: Warfarin Sodium 3 MG TABLET PO (18:12)
[2022-04-04 19:36] VITALS: BP 93/55; PULSE 79; RESP 17; TEMP 36.6; O2SAT 97
[2022-04-04 23:31] VITALS: BP 93/53; PULSE 82; RESP 17; TEMP 36.3; O2SAT 96
[2022-04-05 04:00] VITALS: RESP 18
[2022-04-05] MEDS: oxyCODONE HCl Immed Release 5 MG TABLET PO ×4 (06:03→20:54)
[2022-04-05 07:26] VITALS: BP 100/55; PULSE 81; RESP 18; TEMP 36.1; O2SAT 97
--- NOTE | 2022-04-05 09:02 | P.PNIM_ITS ---
Subjective Subjective Date of Service: 04/05/22 Interval History: the patient was seen and evaluated this morning Laying in bed, feels comfortable Denies shortness of breath, take care of the oxygen and monitor No reported other overnight events. Systemic review: No fever, chills or weakness No chest pain, palpitation No shortness of breath or coughing No abdominal pain, nausea or vomiting No urinary symptoms No any rash or wounds Physical Exam Vital Signs: Vital Signs: Last Vital Signs Temp 96.9 F 04/05/22 07:26 Pulse 81 04/05/22 07:26 Resp 18 04/05/22 07:26 BP 100/55 L 04/05/22 07:26 Pulse Ox 97 04/05/22 07:26 O2 Del Method 04/05/22 07:26 O2 Flow Rate 1 04/05/22 07:26 FiO2 99 02/22/22 03:47 BMI result Body Mass Index 28.9 Const: Other: Constitutional : Alert, interactive, not in distress Neck : Normal inspection, Supple Cardiovascular : RRR, no JVP, no lower extremity edema Respiratory : fair bilateral air entry, no crackles, wheezes or rhonchi, with oxygen supplement Gastrointestinal: soft, lax, Normal bowel sounds, Non tender Skin : Warm, Dry skin Neurological : Alert & oriented to self and place, No focal deficit Objective Data Active Medications Acetaminophen (Acetaminophen 325 Mg Tablet) 650 mg PO Q6H PRN PRN Reason: Pain, Mild (Pain Scale 1-3) Last Admin: 04/04/22 21:52 Dose: 650 mg Documented By: ERICKSON Artificial Tears (Artificial Tears 15 Ml Drops) 1 drop EYE-BOTH Q4H PRN PRN Reason: Dry Eyes Bumetanide (Bumetanide 1 Mg Tablet) 1 mg PO DAILY [facility]; Protocol Last Admin: 04/04/22 09:04 Dose: 1 mg Documented By: MILLIE Escitalopram Oxalate (Escitalopram Oxalate 10 Mg Tablet) 10 mg PO DAILY [facility] Last Admin: 04/04/22 09:04 Dose: 10 mg Documented By: MILLIE Lidocaine (Lidocaine 4 % Patch Adh..Patch) 1 patch TRANSDERMA DAILY [facility]; Protocol Last Admin: 04/04/22 09:05 Dose: 1 patch Documented By: MILLIE Metoprolol Tartrate (Metoprolol Tartrate 12.5 Mg Halftab) 12.5 mg PO BID [facility]; Protocol Last Admin: 04/04/22 20:44 Dose: Not Given Documented By: ERICKSON Non-Admin Reason: low bps Nystatin (Nystatin Powder 15 Gm Bottle) 1 appl TOPICAL TID [facility]; Protocol Last Admin: 04/04/22 19:59 Dose: 1 appl Documented By: ERICKSON Ondansetron HCl (Ondansetron Odt 4 Mg Tab.Rapdis) 4 mg TRANSLINGU Q6H PRN PRN Reason: Nausea and Vomiting Last Admin: 04/03/22 04:51 Dose: 4 mg Documented By: DANE Oxycodone HCl (Oxycodone Hcl Immed Release 5 Mg Tablet) 5 mg PO Q4H PRN PRN Reason: moderate pain Last Admin: 04/05/22 06:03 Dose: 5 mg Documented By: ERICKSON Pharmacy Consult (Consult Rx Perform Med Rec) 1 each MISCELLANE ONCE PRN PRN Reason: Consult order Polyethylene Glycol (Polyethylene Glycol 3350 17 Gm Powd.Pack) 17 gm PO DAILY PRN PRN Reason: constipation Last Admin: 04/02/22 10:33 Dose: 17 gm Documented By: SIERRA Polyethylene Glycol (Polyethylene Glycol 3350 17 Gm Powd.Pack) 17 gm PO DAILY PRN PRN Reason: Constipation Potassium Chloride (Potassium Chloride Er 20 Meq Tab.Er.Prt) 40 meq PO DAILY [facility] Last Admin: 03/24/22 07:57 Dose: 40 meq Documented By: DIMPLE Quetiapine Fumarate (Quetiapine Fumarate 25 Mg Tablet) 12.5 mg PO BID PRN PRN Reason: anxiety, agitation Last Admin: 04/03/22 00:23 Dose: 12.5 mg Documented By: DANE Sodium Chloride (0.9 % Sodium Chloride Flush 3 Ml Syringe) 3 ml IVFLUSH QSHIFT [facility] Last Admin: 04/04/22 20:56 Dose: Not Given Documented By: ERICKSON Non-Admin Reason: on iv access Warfarin Sodium (Warfarin Sodium 3 Mg Tablet) 3 mg PO DAILY@1800 [facility] Last Admin: 04/04/22 18:12 Dose: 3 mg Documented By: MILLIE Labs CBC & Chem 7: 03/05/22 06:20 03/28/22 07:46 Labs: Laboratory Results - last 24 hr 04/05/22 05:47 PT 36.0 H INR 3.0 H Assessment and Plan (1) Subconjunctival hemorrhage: Status: Acute (2) Psoriatic arthritis: Status: Acute (3) Chronic atrial fibrillation: Status: Acute Plan 81yo F with AF (persistent?) + HFpEF, initially was awaiting for LTC placement but became hypotensive and had positive UA concerning for infection, though ultimately grew coag-neg staph from urine and blood determined to be contaminant # Chronic AFib Rate controlled on beta blockade Continue warfarin PT/ INR daily # Chronic HFpEF Not in exacerbation Bumex dose decreased to 1 mg daily from 3 mg b.i.d. at home continue current therapies # Psoriatic arthritis Pain medication as needed adjust as indicated # left eye possible subconjuctval haemorrage asymptomatic continue to moniter, teardrop. VTE ppx warfarin inpatient need: LTC placement, safe disposition Quality Stroke Does the patient have a stroke diagnosis?: No VTE Prior VTE?: No VTE Risk Level:: Medical - moderate - high VTE Device Contraindication: Treatment Not Indicated VTE Drug Contraindication: Treatment Not Indicated
[2022-04-05] MEDS: Lidocaine 4 % Patch ADH..PATCH 1 PATCH TRANSDERMA (09:22)
[2022-04-05] MEDS: Metoprolol Tartrate 12.5 MG HALFTAB PO ×2 (09:22→20:52)
[2022-04-05] MEDS: Bumetanide 1 MG TABLET PO (09:22)
[2022-04-05] MEDS: Escitalopram Oxalate 10 MG TABLET PO (09:22)
[2022-04-05] MEDS: 0.9 % Sodium Chloride Flush 3 ML SYRINGE IVFLUSH ×2 (09:23→17:04)
[2022-04-05] MEDS: Nystatin Powder 15 GM BOTTLE 1 APPL TOPICAL ×3 (09:30→20:59)
[2022-04-05 11:34] VITALS: BP 98/58; PULSE 87; RESP 18; TEMP 36.1; O2SAT 99
[2022-04-05 15:47] VITALS: BP 92/53; PULSE 89; RESP 18; TEMP 36.1; O2SAT 98
[2022-04-05] MEDS: Warfarin Sodium 3 MG TABLET PO (17:04)
[2022-04-05 20:01] VITALS: BP 103/58; PULSE 75; RESP 19; TEMP 36.7; O2SAT 98
[2022-04-05] MEDS: QUEtiapine Fumarate 25 MG TABLET 12.5 MG PO (20:52)
[2022-04-06] VITALS: BP 92/50; PULSE 76; RESP 18; TEMP 36.6; O2SAT 98
[2022-04-06] MEDS: oxyCODONE HCl Immed Release 5 MG TABLET PO ×3 (03:40→18:13)
[2022-04-06] MEDS: Acetaminophen 325 MG TABLET 650 MG PO (06:10)
[2022-04-06 06:16] LABS: INTERNATIONAL NORM RATIO 3.2 (0.9-1.1); Prothrombin Time 38.3 SEC (10.0-13.1)
[2022-04-06 07:31] VITALS: BP 104/59; PULSE 74; RESP 18; TEMP 36.3; O2SAT 98
--- NOTE | 2022-04-06 08:27 | HO.PM.IMPN ---
Subjective Subjective Date of Service: 04/06/22 Interval History: the patient was seen and evaluated this morning Laying in bed, feels comfortable Denies shortness of breath, take care of the oxygen and monitor No reported other overnight events. Systemic review: No fever, chills or weakness No chest pain, palpitation No shortness of breath or coughing No abdominal pain, nausea or vomiting No urinary symptoms No any rash or wounds Physical Exam Vital Signs: Vital Signs: Last Vital Signs Temp 97.3 F 04/06/22 07:31 Pulse 74 04/06/22 07:31 Resp 18 04/06/22 07:31 BP 104/59 L 04/06/22 07:31 Pulse Ox 98 04/06/22 07:31 O2 Del Method 04/06/22 07:31 O2 Flow Rate 1 04/06/22 07:31 FiO2 99 02/22/22 03:47 BMI result Body Mass Index 28.9 Const: Other: Constitutional : Alert, interactive, not in distress Neck : Normal inspection, Supple Cardiovascular : RRR, no JVP, no lower extremity edema Respiratory : fair bilateral air entry, no crackles, wheezes or rhonchi, with oxygen supplement Gastrointestinal: soft, lax, Normal bowel sounds, Non tender Skin : Warm, Dry skin Neurological : Alert & oriented to self and place, No focal deficit Objective Data Active Medications Acetaminophen (Acetaminophen 325 Mg Tablet) 650 mg PO Q6H PRN PRN Reason: Pain, Mild (Pain Scale 1-3) Last Admin: 04/06/22 06:10 Dose: 650 mg Documented By: ERICKSON Artificial Tears (Artificial Tears 15 Ml Drops) 1 drop EYE-BOTH Q4H PRN PRN Reason: Dry Eyes Bumetanide (Bumetanide 1 Mg Tablet) 1 mg PO DAILY [facility]; Protocol Last Admin: 04/05/22 09:22 Dose: 1 mg Documented By: PIPE Escitalopram Oxalate (Escitalopram Oxalate 10 Mg Tablet) 10 mg PO DAILY [facility] Last Admin: 04/05/22 09:22 Dose: 10 mg Documented By: PIPE Lidocaine (Lidocaine 4 % Patch Adh..Patch) 1 patch TRANSDERMA DAILY [facility]; Protocol Last Admin: 04/05/22 09:22 Dose: 1 patch Documented By: PIPE Metoprolol Tartrate (Metoprolol Tartrate 12.5 Mg Halftab) 12.5 mg PO BID [facility]; Protocol Last Admin: 04/05/22 20:52 Dose: 12.5 mg Documented By: ERICKSON Nystatin (Nystatin Powder 15 Gm Bottle) 1 appl TOPICAL TID [facility]; Protocol Last Admin: 04/05/22 20:59 Dose: 1 appl Documented By: ERICKSON Ondansetron HCl (Ondansetron Odt 4 Mg Tab.Rapdis) 4 mg TRANSLINGU Q6H PRN PRN Reason: Nausea and Vomiting Last Admin: 04/03/22 04:51 Dose: 4 mg Documented By: DANE Oxycodone HCl (Oxycodone Hcl Immed Release 5 Mg Tablet) 5 mg PO Q4H PRN PRN Reason: moderate pain Last Admin: 04/06/22 03:40 Dose: 5 mg Documented By: ERICKSON Pharmacy Consult (Consult Rx Perform Med Rec) 1 each MISCELLANE ONCE PRN PRN Reason: Consult order Polyethylene Glycol (Polyethylene Glycol 3350 17 Gm Powd.Pack) 17 gm PO DAILY PRN PRN Reason: constipation Last Admin: 04/02/22 10:33 Dose: 17 gm Documented By: SIERRA Polyethylene Glycol (Polyethylene Glycol 3350 17 Gm Powd.Pack) 17 gm PO DAILY PRN PRN Reason: Constipation Potassium Chloride (Potassium Chloride Er 20 Meq Tab.Er.Prt) 40 meq PO DAILY [facility] Last Admin: 03/24/22 07:57 Dose: 40 meq Documented By: DIMPLE Quetiapine Fumarate (Quetiapine Fumarate 25 Mg Tablet) 12.5 mg PO BID PRN PRN Reason: anxiety, agitation Last Admin: 04/05/22 20:52 Dose: 12.5 mg Documented By: ERICKSON Sodium Chloride (0.9 % Sodium Chloride Flush 3 Ml Syringe) 3 ml IVFLUSH QSHIFT [facility] Last Admin: 04/05/22 23:21 Dose: Not Given Documented By: ERICKSON Non-Admin Reason: No Access Warfarin Sodium (Warfarin Sodium 3 Mg Tablet) 3 mg PO DAILY@1800 [facility] Last Admin: 04/05/22 17:04 Dose: 3 mg Documented By: PIPE Labs CBC & Chem 7: 03/05/22 06:20 03/28/22 07:46 Labs: Laboratory Results - last 24 hr 04/06/22 05:55 PT 38.3 H INR 3.2 H Assessment and Plan (1) Subconjunctival hemorrhage: Status: Acute (2) Psoriatic arthritis: Status: Acute (3) Chronic atrial fibrillation: Status: Acute Plan 81yo F with AF (persistent?) + HFpEF, initially was awaiting for LTC placement but became hypotensive and had positive UA concerning for infection, though ultimately grew coag-neg staph from urine and blood determined to be contaminant # Chronic AFib Rate controlled on beta blockade Continue warfarin PT/ INR daily # Chronic HFpEF Not in exacerbation Bumex dose decreased to 1 mg daily from 3 mg b.i.d. at home continue current therapies # Psoriatic arthritis Pain medication as needed adjust as indicated # left eye possible subconjuctval haemorrage asymptomatic continue to moniter, teardrop. VTE ppx warfarin inpatient need: LTC placement, safe disposition Quality Stroke Does the patient have a stroke diagnosis?: No VTE Prior VTE?: No VTE Risk Level:: Medical - moderate - high VTE Device Contraindication: Treatment Not Indicated VTE Drug Contraindication: Treatment Not Indicated
[2022-04-06] MEDS: Bumetanide 1 MG TABLET PO (09:18)
[2022-04-06] MEDS: Metoprolol Tartrate 12.5 MG HALFTAB PO ×2 (09:18→19:40)
[2022-04-06] MEDS: Escitalopram Oxalate 10 MG TABLET PO (09:18)
[2022-04-06] MEDS: Lidocaine 4 % Patch ADH..PATCH 1 PATCH TRANSDERMA (09:18)
[2022-04-06] MEDS: Nystatin Powder 15 GM BOTTLE 1 APPL TOPICAL ×3 (09:19→21:12)
[2022-04-06 11:47] VITALS: BP 104/55; PULSE 78; RESP 18; TEMP 36.5; O2SAT 96
[2022-04-06 15:26] VITALS: BP 106/70; PULSE 75; RESP 19; TEMP 36.6; O2SAT 96
[2022-04-06 19:27] VITALS: BP 109/59; PULSE 87; RESP 16; TEMP 36.4; O2SAT 97
[2022-04-06] MEDS: QUEtiapine Fumarate 25 MG TABLET 12.5 MG PO (19:40)
[2022-04-06 23:22] VITALS: BP 101/58; PULSE 81; RESP 16; TEMP 36.2; O2SAT 96
[2022-04-07 03:17] VITALS: BP 101/52; PULSE 75; RESP 16; TEMP 36.2; O2SAT 95
[2022-04-07] MEDS: oxyCODONE HCl Immed Release 5 MG TABLET PO ×3 (06:42→17:11)
[2022-04-07 06:54] LABS: Prothrombin Time 36.2 SEC (10.0-13.1)
[2022-04-07 07:34] VITALS: BP 100/65; PULSE 90; RESP 18; TEMP 36.4; O2SAT 96
[2022-04-07] MEDS: Lidocaine 4 % Patch ADH..PATCH 1 PATCH TRANSDERMA (07:43)
[2022-04-07] MEDS: Escitalopram Oxalate 10 MG TABLET PO (07:43)
[2022-04-07] MEDS: Metoprolol Tartrate 12.5 MG HALFTAB PO ×2 (07:43→19:26)
[2022-04-07] MEDS: Bumetanide 1 MG TABLET PO (07:43)
[2022-04-07] MEDS: Nystatin Powder 15 GM BOTTLE 1 APPL TOPICAL ×3 (07:45→19:27)
--- NOTE | 2022-04-07 08:44 | HO.PM.IMPN ---
Subjective Subjective Date of Service: 04/07/22 Interval History: the patient was seen and evaluated this morning Laying in bed, feels comfortable Denies shortness of breath, take care of the oxygen and monitor No reported other overnight events. Systemic review: No fever, chills or weakness No chest pain, palpitation No shortness of breath or coughing No abdominal pain, nausea or vomiting No urinary symptoms No any rash or wounds Physical Exam Vital Signs: Vital Signs: Last Vital Signs Temp 97.6 F 04/07/22 07:34 Pulse 90 04/07/22 07:34 Resp 18 04/07/22 07:34 BP 100/65 04/07/22 07:34 Pulse Ox 96 04/07/22 07:34 O2 Del Method 04/07/22 07:34 O2 Flow Rate 1 04/07/22 07:34 FiO2 99 02/22/22 03:47 BMI result Body Mass Index 28.9 Const: Other: Constitutional : Alert, interactive, not in distress Neck : Normal inspection, Supple Cardiovascular : RRR, no JVP, no lower extremity edema Respiratory : fair bilateral air entry, no crackles, wheezes or rhonchi, with oxygen supplement Gastrointestinal: soft, lax, Normal bowel sounds, Non tender Skin : Warm, Dry skin Neurological : Alert & oriented to self and place, No focal deficit Objective Data Active Medications Acetaminophen (Acetaminophen 325 Mg Tablet) 650 mg PO Q6H PRN PRN Reason: Pain, Mild (Pain Scale 1-3) Last Admin: 04/06/22 06:10 Dose: 650 mg Documented By: ERICKSON Artificial Tears (Artificial Tears 15 Ml Drops) 1 drop EYE-BOTH Q4H PRN PRN Reason: Dry Eyes Bumetanide (Bumetanide 1 Mg Tablet) 1 mg PO DAILY [facility]; Protocol Last Admin: 04/07/22 07:43 Dose: 1 mg Documented By: MILLIE Escitalopram Oxalate (Escitalopram Oxalate 10 Mg Tablet) 10 mg PO DAILY [facility] Last Admin: 04/07/22 07:43 Dose: 10 mg Documented By: MILLIE Lidocaine (Lidocaine 4 % Patch Adh..Patch) 1 patch TRANSDERMA DAILY [facility]; Protocol Last Admin: 04/07/22 07:43 Dose: 1 patch Documented By: MILLIE Metoprolol Tartrate (Metoprolol Tartrate 12.5 Mg Halftab) 12.5 mg PO BID [facility]; Protocol Last Admin: 04/07/22 07:43 Dose: 12.5 mg Documented By: MILLIE Nystatin (Nystatin Powder 15 Gm Bottle) 1 appl TOPICAL TID [facility]; Protocol Last Admin: 04/07/22 07:45 Dose: 1 appl Documented By: MILLIE Ondansetron HCl (Ondansetron Odt 4 Mg Tab.Rapdis) 4 mg TRANSLINGU Q6H PRN PRN Reason: Nausea and Vomiting Last Admin: 04/03/22 04:51 Dose: 4 mg Documented By: DANE Oxycodone HCl (Oxycodone Hcl Immed Release 5 Mg Tablet) 5 mg PO Q4H PRN PRN Reason: moderate pain Last Admin: 04/07/22 06:42 Dose: 5 mg Documented By: YOVANY Pharmacy Consult (Consult Rx Perform Med Rec) 1 each MISCELLANE ONCE PRN PRN Reason: Consult order Polyethylene Glycol (Polyethylene Glycol 3350 17 Gm Powd.Pack) 17 gm PO DAILY PRN PRN Reason: constipation Last Admin: 04/02/22 10:33 Dose: 17 gm Documented By: SIERRA Polyethylene Glycol (Polyethylene Glycol 3350 17 Gm Powd.Pack) 17 gm PO DAILY PRN PRN Reason: Constipation Potassium Chloride (Potassium Chloride Er 20 Meq Tab.Er.Prt) 40 meq PO DAILY [facility] Last Admin: 03/24/22 07:57 Dose: 40 meq Documented By: DIMPLE Quetiapine Fumarate (Quetiapine Fumarate 25 Mg Tablet) 12.5 mg PO BID PRN PRN Reason: anxiety, agitation Last Admin: 04/06/22 19:40 Dose: 12.5 mg Documented By: YOVANY Sodium Chloride (0.9 % Sodium Chloride Flush 3 Ml Syringe) 3 ml IVFLUSH QSHIFT [facility] Last Admin: 04/07/22 07:14 Dose: Not Given Documented By: MILLIE Non-Admin Reason: No Access Warfarin Sodium (Warfarin Sodium 3 Mg Tablet) 3 mg PO DAILY@1800 [facility] Last Admin: 04/06/22 15:40 Dose: Not Given Documented By: VALDEZ Non-Admin Reason: INR 3.2 MD aware Labs CBC & Chem 7: 03/05/22 06:20 03/28/22 07:46 Labs: Laboratory Results - last 24 hr 04/07/22 05:39 PT 36.2 H INR 3.0 H Assessment and Plan (1) Subconjunctival hemorrhage: Status: Acute (2) Psoriatic arthritis: Status: Acute (3) Chronic atrial fibrillation: Status: Acute Plan 81yo F with AF (persistent?) + HFpEF, initially was awaiting for LTC placement but became hypotensive and had positive UA concerning for infection, though ultimately grew coag-neg staph from urine and blood determined to be contaminant # Chronic AFib Rate controlled on beta blockade Continue warfarin PT/ INR daily # Chronic HFpEF Not in exacerbation Bumex dose decreased to 1 mg daily from 3 mg b.i.d. at home continue current therapies # Psoriatic arthritis Pain medication as needed adjust as indicated # left eye possible subconjuctval haemorrage asymptomatic continue to moniter, teardrop. VTE ppx warfarin inpatient need: LTC placement, safe disposition Quality Stroke Does the patient have a stroke diagnosis?: No VTE Prior VTE?: No VTE Risk Level:: Medical - moderate - high VTE Device Contraindication: Treatment Not Indicated VTE Drug Contraindication: Treatment Not Indicated
[2022-04-07 11:20] VITALS: BP 109/57; PULSE 77; RESP 18; TEMP 36.3; O2SAT 94
[2022-04-07 15:06] VITALS: BP 106/51; PULSE 76; RESP 15; TEMP 37.1; O2SAT 98
[2022-04-07] MEDS: 0.9 % Sodium Chloride Flush 3 ML SYRINGE IVFLUSH (16:18)
[2022-04-07] MEDS: Warfarin Sodium 3 MG TABLET PO (17:11)
[2022-04-07 19:02] VITALS: BP 113/51; PULSE 81; RESP 15; TEMP 36.7; O2SAT 97
[2022-04-07] MEDS: QUEtiapine Fumarate 25 MG TABLET 12.5 MG PO (19:27)
[2022-04-07 23:20] VITALS: BP 99/58; PULSE 65; RESP 16; TEMP 36.1; O2SAT 96
[2022-04-08 02:53] VITALS: BP 110/52; PULSE 75; RESP 18; TEMP 36.8; O2SAT 96
[2022-04-08] MEDS: oxyCODONE HCl Immed Release 5 MG TABLET PO ×4 (05:07→22:07)
--- NOTE | 2022-04-08 06:57 | HO.PM.IMPN ---
Subjective Subjective Date of Service: 04/08/22 Interval History: the patient was seen and evaluated this morning Laying in bed, feels comfortable Denies shortness of breath, take care of the oxygen and monitor No reported other overnight events. Systemic review: No fever, chills or weakness No chest pain, palpitation No shortness of breath or coughing No abdominal pain, nausea or vomiting No urinary symptoms No any rash or wounds Physical Exam Vital Signs: Vital Signs: Last Vital Signs Temp 98.3 F 04/08/22 02:53 Pulse 75 04/08/22 02:53 Resp 18 04/08/22 02:53 BP 110/52 L 04/08/22 02:53 Pulse Ox 96 04/08/22 02:53 O2 Del Method 04/08/22 02:53 O2 Flow Rate 1 04/08/22 02:53 FiO2 99 02/22/22 03:47 BMI result Body Mass Index 28.9 Const: Other: Constitutional : Alert, interactive, not in distress Neck : Normal inspection, Supple Cardiovascular : RRR, no JVP, no lower extremity edema Respiratory : fair bilateral air entry, no crackles, wheezes or rhonchi, with oxygen supplement Gastrointestinal: soft, lax, Normal bowel sounds, Non tender Skin : Warm, Dry skin Neurological : Alert & oriented to self and place, No focal deficit Objective Data Active Medications Acetaminophen (Acetaminophen 325 Mg Tablet) 650 mg PO Q6H PRN PRN Reason: Pain, Mild (Pain Scale 1-3) Last Admin: 04/06/22 06:10 Dose: 650 mg Documented By: ERICKSON Artificial Tears (Artificial Tears 15 Ml Drops) 1 drop EYE-BOTH Q4H PRN PRN Reason: Dry Eyes Bumetanide (Bumetanide 1 Mg Tablet) 1 mg PO DAILY [facility]; Protocol Last Admin: 04/07/22 07:43 Dose: 1 mg Documented By: MILLIE Escitalopram Oxalate (Escitalopram Oxalate 10 Mg Tablet) 10 mg PO DAILY [facility] Last Admin: 04/07/22 07:43 Dose: 10 mg Documented By: MILLIE Lidocaine (Lidocaine 4 % Patch Adh..Patch) 1 patch TRANSDERMA DAILY [facility]; Protocol Last Admin: 04/07/22 07:43 Dose: 1 patch Documented By: MILLIE Metoprolol Tartrate (Metoprolol Tartrate 12.5 Mg Halftab) 12.5 mg PO BID [facility]; Protocol Last Admin: 04/07/22 19:26 Dose: 12.5 mg Documented By: YOVANY Comments: eo=079/51 h=83 Nystatin (Nystatin Powder 15 Gm Bottle) 1 appl TOPICAL TID [facility]; Protocol Last Admin: 04/07/22 19:27 Dose: 1 appl Documented By: YOVANY Ondansetron HCl (Ondansetron Odt 4 Mg Tab.Rapdis) 4 mg TRANSLINGU Q6H PRN PRN Reason: Nausea and Vomiting Last Admin: 04/03/22 04:51 Dose: 4 mg Documented By: DANE Oxycodone HCl (Oxycodone Hcl Immed Release 5 Mg Tablet) 5 mg PO Q4H PRN PRN Reason: moderate pain Last Admin: 04/08/22 05:07 Dose: 5 mg Documented By: YOVANY Pharmacy Consult (Consult Rx Perform Med Rec) 1 each MISCELLANE ONCE PRN PRN Reason: Consult order Polyethylene Glycol (Polyethylene Glycol 3350 17 Gm Powd.Pack) 17 gm PO DAILY PRN PRN Reason: constipation Last Admin: 04/02/22 10:33 Dose: 17 gm Documented By: SIERRA Polyethylene Glycol (Polyethylene Glycol 3350 17 Gm Powd.Pack) 17 gm PO DAILY PRN PRN Reason: Constipation Potassium Chloride (Potassium Chloride Er 20 Meq Tab.Er.Prt) 40 meq PO DAILY [facility] Last Admin: 03/24/22 07:57 Dose: 40 meq Documented By: DIMPLE Quetiapine Fumarate (Quetiapine Fumarate 25 Mg Tablet) 12.5 mg PO BID PRN PRN Reason: anxiety, agitation Last Admin: 04/07/22 19:27 Dose: 12.5 mg Documented By: YOVANY Sodium Chloride (0.9 % Sodium Chloride Flush 3 Ml Syringe) 3 ml IVFLUSH QSHIFT [facility] Last Admin: 04/08/22 01:01 Dose: Not Given Documented By: YOVANY Non-Admin Reason: No Access Warfarin Sodium (Warfarin Sodium 3 Mg Tablet) 3 mg PO DAILY@1800 [facility] Last Admin: 04/07/22 17:11 Dose: 3 mg Documented By: MILLIE Labs CBC & Chem 7: 03/05/22 06:03/28/22 07:46 Assessment and Plan (1) Subconjunctival hemorrhage: Status: Acute (2) Psoriatic arthritis: Status: Acute (3) Chronic atrial fibrillation: Status: Acute Plan 81yo F with AF (persistent?) + HFpEF, initially was awaiting for LTC placement but became hypotensive and had positive UA concerning for infection, though ultimately grew coag-neg staph from urine and blood determined to be contaminant # Chronic AFib Rate controlled on beta blockade Continue warfarin PT/ INR daily # Chronic HFpEF Not in exacerbation Bumex dose decreased to 1 mg daily from 3 mg b.i.d. at home continue current therapies # Psoriatic arthritis Pain medication as needed adjust as indicated # left eye possible subconjuctval haemorrage asymptomatic continue to moniter, tearop. VTE ppx warfarin inpatient need: LTC placement, safe disposition Quality Stroke Does the patient have a stroke diagnosis?: No VTE Prior VTE?: No VTE Risk Level:: Medical - moderate - high VTE Device Contraindication: Treatment Not Indicated VTE Drug Contraindication: Treatment Not Indicated
[2022-04-08 07:01] LABS: INTERNATIONAL NORM RATIO 2.5 (0.9-1.1); Prothrombin Time 30.3 SEC (10.0-13.1)
[2022-04-08 07:14] VITALS: BP 113/58; PULSE 74; RESP 18; TEMP 36.6; O2SAT 99
[2022-04-08] MEDS: Escitalopram Oxalate 10 MG TABLET PO (08:15)
[2022-04-08] MEDS: Metoprolol Tartrate 12.5 MG HALFTAB PO ×2 (08:15→19:58)
[2022-04-08] MEDS: Lidocaine 4 % Patch ADH..PATCH 1 PATCH TRANSDERMA (08:15)
[2022-04-08] MEDS: Bumetanide 1 MG TABLET PO (08:15)
[2022-04-08] MEDS: Nystatin Powder 15 GM BOTTLE 1 APPL TOPICAL ×3 (08:17→20:00)
[2022-04-08 11:33] VITALS: BP 120/64; PULSE 77; RESP 18; TEMP 36.8; O2SAT 99
[2022-04-08 15:36] VITALS: BP 95/50; PULSE 70; RESP 17; TEMP 36.2; O2SAT 95
[2022-04-08] MEDS: Warfarin Sodium 3 MG TABLET PO (18:04)
[2022-04-08 18:46] VITALS: BP 108/55; PULSE 82; RESP 18; TEMP 36.9; O2SAT 97
[2022-04-08] MEDS: 0.9 % Sodium Chloride Flush 3 ML SYRINGE IVFLUSH (20:02)
[2022-04-08 23:11] VITALS: BP 90/52; PULSE 72; RESP 18; TEMP 36.6; O2SAT 94
[2022-04-09] MEDS: oxyCODONE HCl Immed Release 5 MG TABLET PO ×5 (02:02→21:45)
[2022-04-09 03:26] VITALS: BP 89/50; PULSE 77; RESP 18; TEMP 36.6; O2SAT 95
[2022-04-09 06:25] LABS: INTERNATIONAL NORM RATIO 2.3 (0.9-1.1); Prothrombin Time 27.6 SEC (10.0-13.1)
[2022-04-09] MEDS: Metoprolol Tartrate 12.5 MG HALFTAB PO ×2 (07:31→21:45)
[2022-04-09] MEDS: Escitalopram Oxalate 10 MG TABLET PO (07:32)
[2022-04-09] MEDS: Bumetanide 1 MG TABLET PO (07:32)
[2022-04-09] MEDS: Lidocaine 4 % Patch ADH..PATCH 1 PATCH TRANSDERMA (07:32)
[2022-04-09] MEDS: Nystatin Powder 15 GM BOTTLE 1 APPL TOPICAL ×3 (07:33→21:45)
[2022-04-09 07:45] VITALS: BP 101/57; PULSE 78; RESP 18; TEMP 36.8; O2SAT 93
--- NOTE | 2022-04-09 09:56 | MHC.CLN ---
F/U DIET=CARDIAC. SUPPLEMENT ENSURE BID PROVIDES ADDITIONAL 700 KCALS, 40 G PROTEIN. SKIN WITH STAGE II TO BILATERAL BUTTOCKS. SUPPLEMENT APPROPRIATE TO PROMOTE WOUND HEALING. INTAKE APPEARS GOOD WITH MOST MEALS 100%. INTAKE OCCASIONALLY LOWER. CONTINUE TO FOLLOW FOR INTAKE AND WOUND HEALING. RD TO FOLLOW WEEKLY.
--- NOTE | 2022-04-09 11:06 | MHC.CM.PN ---
Cm received call from [facility] and they reported dtr has yet to submit required documentation for pt's MH application, cm met w/pt and pt is aware she will not likely be able to txfr to LTC until FS receives documents and MH ezio submitted, referrals have been placed however no bed offers at this time and not likely until ltc payer in place.
[2022-04-09 11:15] VITALS: BP 92/50; PULSE 75; RESP 18; TEMP 36.7; O2SAT 96
--- NOTE | 2022-04-09 12:31 | P.PNIM_ITS ---
Subjective Subjective Date of Service: 04/09/22 Interval History: the patient was seen and evaluated this morning Laying in bed, feels comfortable Daughter at the bedside Denies shortness of breath, On 1 L oxygen supplement No reported other overnight events. Systemic review: No fever, chills or weakness No chest pain, palpitation No shortness of breath or coughing No abdominal pain, nausea or vomiting No urinary symptoms No any rash or wounds Physical Exam Vital Signs: Vital Signs: Last Vital Signs Temp 98.1 F 04/09/22 11:15 Pulse 75 04/09/22 11:15 Resp 18 04/09/22 11:15 BP 92/50 L 04/09/22 11:15 Pulse Ox 96 04/09/22 11:15 O2 Del Method 04/09/22 11:15 O2 Flow Rate 1 04/09/22 11:15 FiO2 99 02/22/22 03:47 BMI result Body Mass Index 28.9 Const: Other: Constitutional : Alert, interactive, not in distress Neck : Normal inspection, Supple Cardiovascular : RRR, no JVP, no lower extremity edema Respiratory : fair bilateral air entry, no crackles, wheezes or rhonchi, with oxygen supplement Gastrointestinal: soft, lax, Normal bowel sounds, Non tender Skin : Warm, Dry skin Extremities: no erythema or swelling noted, chronic deformity to left ankle and foot Neurological : Alert & oriented to self and place, No focal deficit Objective Data Active Medications Acetaminophen (Acetaminophen 325 Mg Tablet) 650 mg PO Q6H PRN PRN Reason: Pain, Mild (Pain Scale 1-3) Last Admin: 04/06/22 06:10 Dose: 650 mg Documented By: ERICKSON Artificial Tears (Artificial Tears 15 Ml Drops) 1 drop EYE-BOTH Q4H PRN PRN Reason: Dry Eyes Bumetanide (Bumetanide 1 Mg Tablet) 1 mg PO DAILY [facility]; Protocol Last Admin: 04/09/22 07:32 Dose: 1 mg Documented By: DIMPLE Escitalopram Oxalate (Escitalopram Oxalate 10 Mg Tablet) 10 mg PO DAILY [facility] Last Admin: 04/09/22 07:32 Dose: 10 mg Documented By: DIMPLE Lidocaine (Lidocaine 4 % Patch Adh..Patch) 1 patch TRANSDERMA DAILY [facility]; Protocol Last Admin: 04/09/22 07:32 Dose: 1 patch Documented By: DIMPLE Metoprolol Tartrate (Metoprolol Tartrate 12.5 Mg Halftab) 12.5 mg PO BID [facility]; Protocol Last Admin: 04/09/22 07:31 Dose: 12.5 mg Documented By: DIMPLE Nystatin (Nystatin Powder 15 Gm Bottle) 1 appl TOPICAL TID [facility]; Protocol Last Admin: 04/09/22 07:33 Dose: 1 appl Documented By: DIMPLE Ondansetron HCl (Ondansetron Odt 4 Mg Tab.Rapdis) 4 mg TRANSLINGU Q6H PRN PRN Reason: Nausea and Vomiting Last Admin: 04/03/22 04:51 Dose: 4 mg Documented By: DANE Oxycodone HCl (Oxycodone Hcl Immed Release 5 Mg Tablet) 5 mg PO Q4H PRN PRN Reason: moderate pain Last Admin: 04/09/22 06:35 Dose: 5 mg Documented By: ALLIE Pharmacy Consult (Consult Rx Perform Med Rec) 1 each MISCELLANE ONCE PRN PRN Reason: Consult order Polyethylene Glycol (Polyethylene Glycol 3350 17 Gm Powd.Pack) 17 gm PO DAILY PRN PRN Reason: constipation Last Admin: 04/02/22 10:33 Dose: 17 gm Documented By: SIERRA Polyethylene Glycol (Polyethylene Glycol 3350 17 Gm Powd.Pack) 17 gm PO DAILY PRN PRN Reason: Constipation Potassium Chloride (Potassium Chloride Er 20 Meq Tab.Er.Prt) 40 meq PO DAILY [facility] Last Admin: 03/24/22 07:57 Dose: 40 meq Documented By: DIMPLE Quetiapine Fumarate (Quetiapine Fumarate 25 Mg Tablet) 12.5 mg PO BID PRN PRN Reason: anxiety, agitation Last Admin: 04/07/22 19:27 Dose: 12.5 mg Documented By: CASTILGenevieve Sodium Chloride (0.9 % Sodium Chloride Flush 3 Ml Syringe) [facility] Last Admin: 04/09/22 07:41 Dose: Not Given Documented By: DIMPLE Non-Admin Reason: No Access Warfarin Sodium (Warfarin Sodium 3 Mg Tablet) 3 mg PO DAILY@1800 [facility] Last Admin: 04/08/22 18:04 Dose: 3 mg Documented By: MILLIE Labs CBC & Chem 7: 03/05/22 06:20 09/23/22 07:46 Labs: Laboratory Results - last 24 hr 04/09/22 05:25 PT 27.6 H INR 2.3 H Assessment and Plan (1) Psoriatic arthritis: Status: Acute (2) Hypomagnesemia: Status: Acute (3) Acute hypotension: Status: Acute Plan 81yo F with AF (persistent?) + HFpEF, initially was awaiting for LTC placement but became hypotensive and had positive UA concerning for infection, though ultimately grew coag-neg staph from urine and blood determined to be contaminant # hypertension Seems asymptomatic, chronically solved looking back Likely related to decrease body tune and being on beta-tony and diuretics continue to monitor and consider midodrine # Chronic AFib Rate controlled on beta blockade Continue warfarin PT/ INR daily # Chronic HFpEF Not in exacerbation Bumex dose decreased to 1 mg daily from 3 mg b.i.d. at home continue current therapies # Psoriatic arthritis Pain medication as needed adjust as indicated # left eye possible subconjuctval haemorrage asymptomatic continue to moniter, teardrop. VTE ppx warfarin inpatient need: LTC placement, safe disposition Quality Stroke Does the patient have a stroke diagnosis?: No VTE Prior VTE?: No VTE Risk Level:: Medical - moderate - high VTE Device Contraindication: Treatment Not Indicated VTE Drug Contraindication: Treatment Not Indicated
[2022-04-09 15:05] VITALS: BP 111/60; PULSE 82; RESP 18; TEMP 37.1; O2SAT 98
[2022-04-09] MEDS: Warfarin Sodium 3 MG TABLET PO (17:25)
[2022-04-09 19:19] VITALS: BP 149/66; PULSE 76; RESP 18; TEMP 36.7; O2SAT 95
[2022-04-09 23:58] VITALS: BP 106/55; PULSE 77; RESP 18; TEMP 36.5; O2SAT 97
[2022-04-10] MEDS: oxyCODONE HCl Immed Release 5 MG TABLET PO ×4 (02:41→20:10)
[2022-04-10 04:00] VITALS: BP 93/58; PULSE 70; RESP 18; TEMP 36.3; O2SAT 97
[2022-04-10 07:56] VITALS: BP 110/58; PULSE 70; RESP 18; TEMP 36.3; O2SAT 98
[2022-04-10] MEDS: Lidocaine 4 % Patch ADH..PATCH 1 PATCH TRANSDERMA (09:20)
[2022-04-10] MEDS: Escitalopram Oxalate 10 MG TABLET PO (09:21)
[2022-04-10] MEDS: Bumetanide 1 MG TABLET PO (09:21)
[2022-04-10] MEDS: Metoprolol Tartrate 12.5 MG HALFTAB PO ×2 (09:21→22:35)
[2022-04-10] MEDS: Nystatin Powder 15 GM BOTTLE 1 APPL TOPICAL ×3 (09:21→22:36)
[2022-04-10 11:18] VITALS: BP 154/98; PULSE 70; RESP 18; TEMP 36.8; O2SAT 94
[2022-04-10 11:31] LABS: INTERNATIONAL NORM RATIO 2.2 (0.9-1.1); Prothrombin Time 26.4 SEC (10.0-13.1)
--- NOTE | 2022-04-10 11:58 | HO.PM.IMPN ---
Subjective Subjective Date of Service: 04/10/22 Interval History: the patient was seen and evaluated this morning Laying? in bed, feels comfortable Daughter at the bedside Denies shortness of breath, taken off oxygen No reported other overnight events. Systemic review: No fever, chills or weakness No chest pain, palpitation No shortness of breath or coughing No abdominal pain, nausea or vomiting No urinary symptoms No any rash or wounds Physical Exam Vital Signs: Vital Signs: Last Vital Signs Temp 98.2 F 04/10/22 11:18 Pulse 70 04/10/22 11:18 Resp 18 04/10/22 11:18 BP 154/98 H 04/10/22 11:18 Pulse Ox 94 04/10/22 11:18 O2 Del Method 04/10/22 11:18 O2 Flow Rate 1 04/10/22 11:18 FiO2 99 02/22/22 03:47 BMI result Body Mass Index 28.9 Const: Other: Constitutional : Alert, interactive, not in distress Neck : Normal inspection, Supple Cardiovascular : RRR, no JVP, no lower extremity edema Respiratory : fair bilateral air entry,? no crackles, wheezes or rhonchi, with oxygen supplement Gastrointestinal:? soft, lax, Normal bowel sounds, Non tender Skin : Warm, Dry skin Extremities:? no erythema or swelling noted, chronic deformity to left ankle and foot Neurological : Alert & oriented to self and place, not moving lower extremity use much weaker on the left side Objective Data Active Medications Acetaminophen (Acetaminophen 325 Mg Tablet) 650 mg PO Q6H PRN PRN Reason: Pain, Mild (Pain Scale 1-3) Last Admin: 04/06/22 06:10 Dose: 650 mg Documented By: ERICKSON Artificial Tears (Artificial Tears 15 Ml Drops) 1 drop EYE-BOTH Q4H PRN PRN Reason: Dry Eyes Bumetanide (Bumetanide 1 Mg Tablet) 1 mg PO DAILY [facility]; Protocol Last Admin: 04/10/22 09:21 Dose: 1 mg Documented By: VALDEZ Escitalopram Oxalate (Escitalopram Oxalate 10 Mg Tablet) 10 mg PO DAILY [facility] Last Admin: 04/10/22 09:21 Dose: 10 mg Documented By: VALDEZ Lidocaine (Lidocaine 4 % Patch Adh..Patch) 1 patch TRANSDERMA DAILY [facility]; Protocol Last Admin: 04/10/22 09:20 Dose: 1 patch Documented By: VALDEZ Metoprolol Tartrate (Metoprolol Tartrate 12.5 Mg Halftab) 12.5 mg PO BID [facility]; Protocol Last Admin: 04/10/22 09:21 Dose: 12.5 mg Documented By: VALDEZ Nystatin (Nystatin Powder 15 Gm Bottle) 1 appl TOPICAL TID [facility]; Protocol Last Admin: 04/10/22 09:21 Dose: 1 appl Documented By: VALDEZ Ondansetron HCl (Ondansetron Odt 4 Mg Tab.Rapdis) 4 mg TRANSLINGU Q6H PRN PRN Reason: Nausea and Vomiting Last Admin: 04/03/22 04:51 Dose: 4 mg Documented By: DANE Oxycodone HCl (Oxycodone Hcl Immed Release 5 Mg Tablet) 5 mg PO Q4H PRN PRN Reason: moderate pain Last Admin: 04/10/22 10:03 Dose: 5 mg Documented By: VALDEZ Pharmacy Consult (Consult Rx Perform Med Rec) 1 each MISCELLANE ONCE PRN PRN Reason: Consult order Polyethylene Glycol (Polyethylene Glycol 3350 17 Gm Powd.Pack) 17 gm PO DAILY PRN PRN Reason: constipation Last Admin: 04/02/22 10:33 Dose: 17 gm Documented By: SIERRA Polyethylene Glycol (Polyethylene Glycol 3350 17 Gm Powd.Pack) 17 gm PO DAILY PRN PRN Reason: Constipation Potassium Chloride (Potassium Chloride Er 20 Meq Tab.Er.Prt) 40 meq PO DAILY [facility] Last Admin: 03/24/22 07:57 Dose: 40 meq Documented By: DIMPLE Quetiapine Fumarate (Quetiapine Fumarate 25 Mg Tablet) 12.5 mg PO BID PRN PRN Reason: anxiety, agitation Last Admin: 04/07/22 19:27 Dose: 12.5 mg Documented By: CASTILGenevieve Sodium Chloride (0.9 % Sodium Chloride Flush 3 Ml Syringe) 3 ml IVFLUSH QSHIFT [facility] Last Admin: 04/10/22 09:21 Dose: Not Given Documented By: VALDEZ Non-Admin Reason: No Access Warfarin Sodium (Warfarin Sodium 3 Mg Tablet) 3 mg PO DAILY@1800 [facility] Last Admin: 04/09/22 17:25 Dose: 3 mg Documented By: DIMPLE Labs CBC & Chem 7: 03/05/22 06:20 03/28/22 07:46 Labs: Laboratory Results - last 24 hr 04/10/22 11:14 PT 26.4 H INR 2.2 H Assessment and Plan (1) Psoriatic arthritis: Status: Acute (2) Chronic heart failure: Status: Acute Plan 81yo F with AF (persistent?) + HFpEF, initially was awaiting for LTC placement but became hypotensive and had positive UA concerning for infection, though ultimately grew coag-neg staph from urine and blood determined to be contaminant #? hypertension Seems asymptomatic, chronically? solved looking back Likely related to decrease body tune and being on beta-tony and? diuretics continue to monitor and consider midodrine # Chronic AFib Rate controlled on beta blockade Continue warfarin PT/ INR daily # Chronic HFpEF Not in exacerbation Bumex dose decreased to 1 mg daily from 3 mg b.i.d. at home continue current therapies # Psoriatic arthritis Pain medication as needed adjust as indicated # left eye subconjuctval haemorrage asymptomatic, resolved VTE ppx warfarin inpatient need: pending LTC placement, safe disposition Quality Stroke Does the patient have a stroke diagnosis?: No VTE Prior VTE?: No VTE Risk Level:: Medical - moderate - high VTE Device Contraindication: Treatment Not Indicated VTE Drug Contraindication: Treatment Not Indicated
--- NOTE | 2022-04-10 12:54 | P.CDIC_ITS ---
CDI Concurrent Query Documentation Clarification: PHYSICIAN'S DOCUMENTATION REQUEST Date of Query: 04/10/22 1255 Patient Name: Tobias Anguiano Admit Date: 02/20/22 Dear Doctor, A review of the medical record indicates additional documentation may be indicated. Please review below and update the documentation accordingly. Clinical Indicators: Risk Factors/Clinical Indicators/Treatments Per nursing note 03/16/22: R buttock wound, foam dressing intact Based on the above, could you please provide, in the Progress Notes, further information regarding the ulcer/wound: * Location of the ulcer/wound, including laterality * Type (etiology) of ulcer/wound: * Pressure (decubitus) ulcer * Other * Unable to determine * For a non-pressure ulcer, please indicate the depth/severity: * Limited to the breakdown of skin * With fat layer exposed * With necrosis of muscle * With necrosis of bone * Other * Unable to determine * If a pressure ulcer, please also include the stage* of the ulcer: * Stage 1 - Skin intact, non-blanchable redness * Stage 2 - Partial thickness loss of dermis, includes intact or open blister * Stage 3 - Full thickness tissue not including bone, tendon, or muscle * Stage 4 - Full thickness tissue loss, including exposed bones, tendon, or muscle * Unstageable - Full thickness tissue loss in which the base of the ulcer is covered by slough (yellow, gaines, cardona, green or brown) and/or eschar (gaines, brown, or black) in the wound bed. * Suspected deep tissue injury - Purple or maroon localized area of discolored intact skin or blood-filled blister due to damage of underlying soft tissues from pressure and/or shear. The area may be preceded by tissue that is painful, firm, mushy, boggy, warmer, or cooler as compare to adjacent tissue. * Unable to determine *Source: National Pressure Ulcer Advisory Panel (NPUAP) Use of terms such as suspected, likely, concern for, or probable (associated with a specific diagnosis that is being evaluated, monitored, or treated as if it exists) are acceptable and can be coded in the inpatient setting, when documented at the time of discharge. Thank you, Sania Dash RN Extension: [phone] Please use your independent medical judgment in providing your response. THIS QUERY IS PART OF THE PERMANENT MEDICAL RECORD Provider Response: Other Other Diagnosis: stage I pressure wound right buttock
--- NOTE | 2022-04-10 12:54 | MHC.CDI.CONC ---
CDI Concurrent Query Documentation Clarification: PHYSICIAN'S DOCUMENTATION REQUEST Date of Query: 04/10/22 1255 Patient Name: Tobias Anguiano Admit Date: 02/20/22 Dear Doctor, A review of the medical record indicates additional documentation may be indicated. Please review below and update the documentation accordingly. Clinical Indicators: Risk Factors/Clinical Indicators/Treatments Per nursing note 03/16/22: R buttock wound, foam dressing intact Based on the above, could you please provide, in the Progress Notes, further information regarding the ulcer/wound: Location of the ulcer/wound, including laterality Type (etiology) of ulcer/wound: Pressure (decubitus) ulcer Other Unable to determine For a non-pressure ulcer, please indicate the depth/severity: Limited to the breakdown of skin With fat layer exposed With necrosis of muscle With necrosis of bone Other Unable to determine If a pressure ulcer, please also include the stage* of the ulcer: Stage 1 - Skin intact, non-blanchable redness Stage 2 - Partial thickness loss of dermis, includes intact or open blister Stage 3 - Full thickness tissue not including bone, tendon, or muscle Stage 4 - Full thickness tissue loss, including exposed bones, tendon, or muscle Unstageable - Full thickness tissue loss in which the base of the ulcer is covered by slough (yellow, gaines, cardona, green or brown) and/or eschar (gaines, brown, or black) in the wound bed. Suspected deep tissue injury - Purple or maroon localized area of discolored intact skin or blood-filled blister due to damage of underlying soft tissues from pressure and/or shear. The area may be preceded by tissue that is painful, firm, mushy, boggy, warmer, or cooler as compare to adjacent tissue. Unable to determine *Source: National Pressure Ulcer Advisory Panel (NPUAP) Use of terms such as suspected, likely, concern for, or probable (associated with a specific diagnosis that is being evaluated, monitored, or treated as if it exists) are acceptable and can be coded in the inpatient setting, when documented at the time of discharge. Thank you, Sania Dash RN Extension: [phone] Please use your independent medical judgment in providing your response. THIS QUERY IS PART OF THE PERMANENT MEDICAL RECORD Provider Response: Other Other Diagnosis: stage I pressure wound right buttock
[2022-04-10] MEDS: Acetaminophen 325 MG TABLET 650 MG PO (13:37)
[2022-04-10 15:18] VITALS: BP 109/53; PULSE 79; RESP 18; TEMP 36.8; O2SAT 96
[2022-04-10] MEDS: Warfarin Sodium 3 MG TABLET PO (18:32)
[2022-04-10 19:36] VITALS: BP 136/75; PULSE 72; RESP 18; TEMP 36.8; O2SAT 93
[2022-04-11] VITALS (7 sets, daily range): BP systolic 97–120; BP diastolic 52–71; PULSE 64–96; RESP 16–18; TEMP 36–36.9; O2SAT 92–98
[2022-04-11] MEDS: oxyCODONE HCl Immed Release 5 MG TABLET PO ×5 (01:04→21:09)
[2022-04-11] MEDS: Acetaminophen 325 MG TABLET 650 MG PO (02:57)
[2022-04-11 06:08] LABS: INTERNATIONAL NORM RATIO 2.4 (0.9-1.1); Prothrombin Time 28.9 SEC (10.0-13.1)
[2022-04-11 06:21] LABS: Anion Gap 11 (12-20); Blood Urea Nitrogen 21 mg/dL (9-16); Calcium 8.2 mg/dL (8.4-10.2); Carbon Dioxide 36 mmol/L (22-29); Chloride 97 mmol/L (96-108); Creatinine Clr Calc Pharmacy 65.4; Estimated Glomerular Filt Rate > 60; Glucose Random 84 mg/dL (60-115); Potassium 3.4 mmol/L (3.3-5.1); Sodium 141 mmol/L (135-145)
[2022-04-11] MEDS: Lidocaine 4 % Patch ADH..PATCH 1 PATCH TRANSDERMA (11:18)
[2022-04-11] MEDS: Metoprolol Tartrate 12.5 MG HALFTAB PO ×2 (11:19→19:29)
[2022-04-11] MEDS: Bumetanide 1 MG TABLET PO (11:19)
[2022-04-11] MEDS: Escitalopram Oxalate 10 MG TABLET PO (11:20)
[2022-04-11] MEDS: Nystatin Powder 15 GM BOTTLE 1 APPL TOPICAL ×3 (11:20→19:36)
--- NOTE | 2022-04-11 13:27 | MHC.CM.PN ---
EMR REVIEWED, PT MEDICALLY CLEARED FOR D/C HOWEVER IN NEED OF LTC PLACEMENT, PER PT HER SON HERI ARIAS [phone] IS WILLING TO BE POA AND ASSIST W/DOCUMENTS NEEDED DTR HAD NOT BROUGHT IN NEEDED DOCUMENTS/PROVIDED INFO FOR [facility], PLAN FOR SON HERI TO COME IN NEXT THURSDAY AT 2PM TO SIGN POA W/ADVERTISING DIRECTOR. CM WILL EMAIL HERI AT . CM WAS ABLE TO CONTACT FS LIAISON REPORTED THAT DTR DID BRING IN SOME DOCUMENTS AND COMPLETED MAJORITY OF [facility] HOWEVER STILL NEEDS 5YRS OF BANK STATEMENTS OF PT'S BANK ACCT AND JOINT ACCT W/PT'S AND TO ANSWER MORE QUESTIONS. CM REQUESTED FS CONTACT PT'S SON HERI TO ANSWER REMAINDER OF QUESTIONS. CM WILL CONT TO FOLLOW.
--- NOTE | 2022-04-11 13:43 | P.PNIM_ITS ---
Subjective Subjective Date of Service: 04/11/22 Interval History: the patient was seen and evaluated this morning Laying? in bed, feels comfortable Denies shortness of breath No reported other overnight events. Systemic review: No fever, chills or weakness No chest pain, palpitation No shortness of breath or coughing No abdominal pain, nausea or vomiting No urinary symptoms No any rash or wounds Physical Exam Vital Signs: Vital Signs: Last Vital Signs Temp 96.9 F 04/11/22 12:00 Pulse 96 04/11/22 12:00 Resp 18 04/11/22 12:00 BP 120/60 04/11/22 12:00 Pulse Ox 92 04/11/22 12:00 O2 Del Method 04/11/22 12:00 O2 Flow Rate 1 04/11/22 12:00 FiO2 99 02/22/22 03:47 BMI result Body Mass Index 28.9 Const: Other: Constitutional : Alert, interactive, not in distress Neck : Normal inspection, Supple Cardiovascular : RRR, no JVP, no lower extremity edema Respiratory : fair bilateral air entry,? no crackles, wheezes or rhonchi, with oxygen supplement Gastrointestinal:? soft, lax, Normal bowel sounds, Non tender Skin : Warm, Dry skin Extremities:? no erythema or swelling noted, chronic deformity to left ankle and foot Neurological : Alert & oriented to self and place, not moving lower extremity use much weaker on the left side Objective Data Active Medications Acetaminophen (Acetaminophen 325 Mg Tablet) 650 mg PO Q6H PRN PRN Reason: Pain, Mild (Pain Scale 1-3) Last Admin: 04/11/22 02:57 Dose: 650 mg Documented By: DEREK Artificial Tears (Artificial Tears 15 Ml Drops) 1 drop EYE-BOTH Q4H PRN PRN Reason: Dry Eyes Bumetanide (Bumetanide 1 Mg Tablet) 1 mg PO DAILY [facility]; Protocol Last Admin: 04/11/22 11:19 Dose: 1 mg Documented By: VALDEZ Escitalopram Oxalate (Escitalopram Oxalate 10 Mg Tablet) 10 mg PO DAILY [facility] Last Admin: 04/11/22 11:20 Dose: 10 mg Documented By: VALDEZ Lidocaine (Lidocaine 4 % Patch Adh..Patch) 1 patch TRANSDERMA DAILY [facility]; Protocol Last Admin: 04/11/22 11:18 Dose: 1 patch Documented By: VALDEZ Metoprolol Tartrate (Metoprolol Tartrate 12.5 Mg Halftab) 12.5 mg PO BID [facility]; Protocol Last Admin: 04/11/22 11:19 Dose: 12.5 mg Documented By: VALDEZ Nystatin (Nystatin Powder 15 Gm Bottle) 1 appl TOPICAL TID [facility]; Protocol Last Admin: 04/11/22 11:20 Dose: 1 appl Documented By: VALDEZ Ondansetron HCl (Ondansetron Odt 4 Mg Tab.Rapdis) 4 mg TRANSLINGU Q6H PRN PRN Reason: Nausea and Vomiting Last Admin: 04/03/22 04:51 Dose: 4 mg Documented By: DANE Oxycodone HCl (Oxycodone Hcl Immed Release 5 Mg Tablet) 5 mg PO Q4H PRN PRN Reason: moderate pain Last Admin: 04/11/22 11:19 Dose: 5 mg Documented By: VALDEZ Pharmacy Consult (Consult Rx Perform Med Rec) 1 each MISCELLANE ONCE PRN PRN Reason: Consult order Polyethylene Glycol (Polyethylene Glycol 3350 17 Gm Powd.Pack) 17 gm PO DAILY PRN PRN Reason: constipation Last Admin: 04/02/22 10:33 Dose: 17 gm Documented By: SIERRA Polyethylene Glycol (Polyethylene Glycol 3350 17 Gm Powd.Pack) 17 gm PO DAILY PRN PRN Reason: Constipation Potassium Chloride (Potassium Chloride Er 20 Meq Tab.Er.Prt) 40 meq PO DAILY [facility] Last Admin: 03/24/22 07:57 Dose: 40 meq Documented By: DIMPLE Quetiapine Fumarate (Quetiapine Fumarate 25 Mg Tablet) 12.5 mg PO BID PRN PRN Reason: anxiety, agitation Last Admin: 04/07/22 19:27 Dose: 12.5 mg Documented By: CASTILGenevieve Sodium Chloride (0.9 % Sodium Chloride Flush 3 Ml Syringe) 3 ml IVFLUSH QSHIFT [facility] Last Admin: 04/11/22 07:04 Dose: Not Given Documented By: VALDEZ Non-Admin Reason: No Access Warfarin Sodium (Warfarin Sodium 3 Mg Tablet) 3 mg PO DAILY@1800 [facility] Last Admin: 04/10/22 18:32 Dose: 3 mg Documented By: VALDEZ Labs CBC & Chem 7: 03/05/22 06:20 04/11/22 05:21 Labs: Laboratory Results - last 24 hr 04/11/22 04/11/22 05:21 05:21 PT 28.9 H INR 2.4 H Anion Gap 11 L Estim Creat Clear Calc 65.4 Estimated GFR > 60 Random Glucose 84 Calcium 8.2 L Assessment and Plan (1) Chronic heart failure: Status: Acute (2) Psoriatic arthritis: Status: Acute Plan 81yo F with AF (persistent?) + HFpEF, initially was awaiting for LTC placement but became hypotensive and had positive UA concerning for infection, though ultimately grew coag-neg staph from urine and blood determined to be contaminant #? hypertension Seems asymptomatic, chronically? solved looking back Likely related to decrease body tune and being on beta-tony and? diuretics continue to monitor and consider midodrine # Chronic AFib Rate controlled on beta blockade Continue warfarin PT/ INR daily # Chronic HFpEF Not in exacerbation Bumex dose decreased to 1 mg daily from 3 mg b.i.d. at home continue current therapies # Psoriatic arthritis Pain medication as needed adjust as indicated # left eye subconjuctval haemorrage asymptomatic, resolved VTE ppx warfarin inpatient need: pending LTC placement, safe disposition Quality Stroke Does the patient have a stroke diagnosis?: No VTE Prior VTE?: No VTE Risk Level:: Medical - moderate - high VTE Device Contraindication: Treatment Not Indicated VTE Drug Contraindication: Treatment Not Indicated
[2022-04-11] MEDS: Warfarin Sodium 3 MG TABLET PO (19:28)
[2022-04-11] MEDS: QUEtiapine Fumarate 25 MG TABLET 12.5 MG PO (19:29)
[2022-04-12 03:34] VITALS: BP 108/58; PULSE 73; RESP 17; TEMP 37.1; O2SAT 97
[2022-04-12] MEDS: oxyCODONE HCl Immed Release 5 MG TABLET PO (04:57)
[2022-04-12 07:40] VITALS: BP 127/67; PULSE 71; RESP 17; TEMP 36.7; O2SAT 100
[2022-04-12] MEDS: Metoprolol Tartrate 12.5 MG HALFTAB PO ×2 (08:53→22:20)
[2022-04-12] MEDS: Lidocaine 4 % Patch ADH..PATCH 1 PATCH TRANSDERMA (08:53)
[2022-04-12] MEDS: Bumetanide 1 MG TABLET PO (08:53)
[2022-04-12] MEDS: Escitalopram Oxalate 10 MG TABLET PO (08:53)
[2022-04-12] MEDS: Nystatin Powder 15 GM BOTTLE 1 APPL TOPICAL ×2 (08:56→22:21)
[2022-04-12] MEDS: Acetaminophen 325 MG TABLET 650 MG PO (10:29)
--- NOTE | 2022-04-12 10:34 | HO.PM.IMPN ---
Subjective Subjective Date of Service: 04/12/22 Interval History: the patient was seen and evaluated this morning Laying? in bed, feels comfortable Denies shortness of breath No reported other overnight events. Systemic review: No fever, chills or weakness No chest pain, palpitation No shortness of breath or coughing No abdominal pain, nausea or vomiting No urinary symptoms No any rash or wounds Physical Exam Vital Signs: Vital Signs: Last Vital Signs Temp 98.1 F 04/12/22 07:40 Pulse 71 04/12/22 07:40 Resp 17 04/12/22 07:40 BP 127/67 04/12/22 07:40 Pulse Ox 100 04/12/22 07:40 O2 Del Method 04/12/22 07:40 O2 Flow Rate 2.0 04/12/22 07:40 FiO2 99 02/22/22 03:47 BMI result Body Mass Index 28.9 Const: Other: Constitutional : Alert, interactive, not in distress Neck : Normal inspection, Supple Cardiovascular : RRR, no JVP, no lower extremity edema Respiratory : fair bilateral air entry,? no crackles, wheezes or rhonchi, with oxygen supplement Gastrointestinal:? soft, lax, Normal bowel sounds, Non tender Skin : Warm, Dry skin Extremities:? no erythema or swelling noted, chronic deformity to left ankle and foot Neurological : Alert & oriented to self and place, not moving lower extremity use much weaker on the left side Objective Data Active Medications Acetaminophen (Acetaminophen 325 Mg Tablet) 650 mg PO Q6H PRN PRN Reason: Pain, Mild (Pain Scale 1-3) Last Admin: 04/11/22 02:57 Dose: 650 mg Documented By: DEREK Artificial Tears (Artificial Tears 15 Ml Drops) 1 drop EYE-BOTH Q4H PRN PRN Reason: Dry Eyes Bumetanide (Bumetanide 1 Mg Tablet) 1 mg PO DAILY [facility]; Protocol Last Admin: 04/12/22 08:53 Dose: 1 mg Documented By: ASHELY Escitalopram Oxalate (Escitalopram Oxalate 10 Mg Tablet) 10 mg PO DAILY [facility] Last Admin: 04/12/22 08:53 Dose: 10 mg Documented By: ASHELY Lidocaine (Lidocaine 4 % Patch Adh..Patch) 1 patch TRANSDERMA DAILY [facility]; Protocol Last Admin: 04/12/22 08:53 Dose: 1 patch Documented By: ASHELY Metoprolol Tartrate (Metoprolol Tartrate 12.5 Mg Halftab) 12.5 mg PO BID [facility]; Protocol Last Admin: 04/12/22 08:53 Dose: 12.5 mg Documented By: ASHELY Nystatin (Nystatin Powder 15 Gm Bottle) 1 appl TOPICAL TID [facility]; Protocol Last Admin: 04/12/22 08:56 Dose: 1 appl Documented By: ASHELY Ondansetron HCl (Ondansetron Odt 4 Mg Tab.Rapdis) 4 mg TRANSLINGU Q6H PRN PRN Reason: Nausea and Vomiting Last Admin: 04/03/22 04:51 Dose: 4 mg Documented By: DANE Pharmacy Consult (Consult Rx Perform Med Rec) 1 each MISCELLANE ONCE PRN PRN Reason: Consult order Polyethylene Glycol (Polyethylene Glycol 3350 17 Gm Powd.Pack) 17 gm PO DAILY PRN PRN Reason: constipation Last Admin: 04/02/22 10:33 Dose: 17 gm Documented By: SIERRA Polyethylene Glycol (Polyethylene Glycol 3350 17 Gm Powd.Pack) 17 gm PO DAILY PRN PRN Reason: Constipation Potassium Chloride (Potassium Chloride Er 20 Meq Tab.Er.Prt) 40 meq PO DAILY [facility] Last Admin: 03/24/22 07:57 Dose: 40 meq Documented By: DIMPLE Quetiapine Fumarate (Quetiapine Fumarate 25 Mg Tablet) 12.5 mg PO BID PRN PRN Reason: anxiety, agitation Last Admin: 04/11/22 19:29 Dose: 12.5 mg Documented By: YOVANY Warfarin Sodium (Warfarin Sodium 3 Mg Tablet) 3 mg PO DAILY@1800 [facility] Last Admin: 04/11/22 19:28 Dose: 3 mg Documented By: YOVANY Comments: not given by previous RN as verified, INR=2.4 Labs CBC & Chem 7: 03/05/22 06:20 04/11/22 05:21 Assessment and Plan (1) Chronic heart failure: Status: Acute (2) Acute UTI: Status: Acute Plan 81yo F with AF (persistent?) + HFpEF, initially was awaiting for LTC placement but became hypotensive and had positive UA concerning for infection, though ultimately grew coag-neg staph from urine and blood determined to be contaminant # UTI finished antibiotic course #? hypertension Seems asymptomatic, chronically? solved looking back Likely related to decrease body tune and being on beta-tony and? diuretics continue to monitor and consider midodrine # Chronic AFib Rate controlled on beta blockade Continue warfarin PT/ INR daily # Chronic HFpEF Not in exacerbation Bumex dose decreased to 1 mg daily from 3 mg b.i.d. at home continue current therapies # Psoriatic arthritis Pain medication as needed adjust as indicated # left eye subconjuctval haemorrage asymptomatic, resolved VTE ppx warfarin inpatient need: pending LTC placement, safe disposition Quality Stroke Does the patient have a stroke diagnosis?: No VTE Prior VTE?: No VTE Risk Level:: Medical - moderate - high VTE Device Contraindication: Treatment Not Indicated VTE Drug Contraindication: Treatment Not Indicated
[2022-04-12] MEDS: oxyCODONE HCl Immed Release 5 MG TABLET 2.5 MG PO ×3 (10:53→23:58)
[2022-04-12 11:05] LABS: INTERNATIONAL NORM RATIO 2.3 (0.9-1.1)
[2022-04-12 11:35] VITALS: BP 114/65; PULSE 70; RESP 18; TEMP 36.8; O2SAT 95
[2022-04-12] MEDS: Gabapentin 100 MG CAPSULE PO ×2 (14:38→22:21)
[2022-04-12 15:27] VITALS: BP 112/57; PULSE 76; RESP 16; TEMP 36.6; O2SAT 93
[2022-04-12] MEDS: Warfarin Sodium 3 MG TABLET PO (17:20)
[2022-04-12 19:53] VITALS: BP 115/59; PULSE 71; RESP 17; TEMP 36.5; O2SAT 95
[2022-04-12] MEDS: QUEtiapine Fumarate 25 MG TABLET 12.5 MG PO (22:20)
[2022-04-12 23:47] VITALS: BP 154/56; PULSE 82; RESP 17; TEMP 36.2; O2SAT 93
[2022-04-13] VITALS (7 sets, daily range): BP systolic 98–135; BP diastolic 56–82; PULSE 68–88; RESP 16–20; TEMP 36.2–37; O2SAT 84–97
[2022-04-13 06:19] LABS: INTERNATIONAL NORM RATIO 2.5 (0.9-1.1); Prothrombin Time 29.3 SEC (10.0-13.1)
[2022-04-13] MEDS: Bumetanide 1 MG TABLET PO (07:23)
[2022-04-13] MEDS: Escitalopram Oxalate 10 MG TABLET PO (07:24)
[2022-04-13] MEDS: Gabapentin 100 MG CAPSULE PO ×2 (07:24→22:40)
[2022-04-13] MEDS: Metoprolol Tartrate 12.5 MG HALFTAB PO ×2 (07:24→22:43)
[2022-04-13] MEDS: Acetaminophen 325 MG TABLET 650 MG PO ×3 (07:24→22:39)
[2022-04-13] MEDS: QUEtiapine Fumarate 25 MG TABLET 12.5 MG PO (07:25)
[2022-04-13] MEDS: oxyCODONE HCl Immed Release 5 MG TABLET 2.5 MG PO ×3 (07:26→22:39)
--- NOTE | 2022-04-13 11:11 | HO.PM.IMPN ---
Subjective Subjective Date of Service: 04/13/22 Interval History: the patient was seen and evaluated this morning Laying? in bed, feels comfortable but complaining of ankle pain Denies shortness of breath No reported other overnight events. Systemic review: No fever, chills or weakness No chest pain, palpitation No shortness of breath or coughing No abdominal pain, nausea or vomiting No urinary symptoms No any rash or wounds Physical Exam Vital Signs: Vital Signs: Last Vital Signs Temp 97.1 F 04/13/22 08:00 Pulse 68 04/13/22 08:00 Resp 18 04/13/22 08:00 BP 106/61 04/13/22 08:00 Pulse Ox 90 L 04/13/22 08:00 O2 Del Method 04/13/22 08:00 O2 Flow Rate 1 04/13/22 03:29 FiO2 99 02/22/22 03:47 BMI result Body Mass Index 28.9 Const: Other: Constitutional : Alert, interactive, not in distress Neck : Normal inspection, Supple Cardiovascular : RRR, no JVP, no lower extremity edema Respiratory : fair bilateral air entry,? no crackles, wheezes or rhonchi, with oxygen supplement Gastrointestinal:? soft, lax, Normal bowel sounds, Non tender Skin : Warm, Dry skin Extremities:? no erythema or swelling noted, chronic deformity to left ankle and foot Neurological : Alert & oriented to self and place, not moving lower extremity use much weaker on the left side Objective Data Active Medications Acetaminophen (Acetaminophen 325 Mg Tablet) 650 mg PO Q6H PRN PRN Reason: Pain, Mild (Pain Scale 1-3) Last Admin: 04/13/22 07:24 Dose: 650 mg Documented By: ASHELY Artificial Tears (Artificial Tears 15 Ml Drops) 1 drop EYE-BOTH Q4H PRN PRN Reason: Dry Eyes Bumetanide (Bumetanide 1 Mg Tablet) 1 mg PO DAILY [facility]; Protocol Last Admin: 04/13/22 07:23 Dose: 1 mg Documented By: ASHELY Escitalopram Oxalate (Escitalopram Oxalate 10 Mg Tablet) 10 mg PO DAILY [facility] Last Admin: 04/13/22 07:24 Dose: 10 mg Documented By: ASHELY Gabapentin (Gabapentin 100 Mg Capsule) 100 mg PO BID [facility] Last Admin: 04/13/22 07:24 Dose: 100 mg Documented By: ASHELY Lidocaine (Lidocaine 4 % Patch Adh..Patch) 1 patch TRANSDERMA DAILY [facility]; Protocol Last Admin: 04/13/22 07:29 Dose: Not Given Documented By: ASHELY Non-Admin Reason: Patient Refused Metoprolol Tartrate (Metoprolol Tartrate 12.5 Mg Halftab) 12.5 mg PO BID [facility]; Protocol Last Admin: 04/13/22 07:24 Dose: 12.5 mg Documented By: ASHELY Nystatin (Nystatin Powder 15 Gm Bottle) 1 appl TOPICAL TID [facility]; Protocol Last Admin: 04/13/22 07:28 Dose: Not Given Documented By: ASHELY Non-Admin Reason: no rash Ondansetron HCl (Ondansetron Odt 4 Mg Tab.Rapdis) 4 mg TRANSLINGU Q6H PRN PRN Reason: Nausea and Vomiting Last Admin: 04/03/22 04:51 Dose: 4 mg Documented By: DANE Oxycodone HCl (Oxycodone Hcl Immed Release 5 Mg Tablet) 2.5 mg PO Q6H PRN PRN Reason: Pain, Severe (Pain Scale 7-10) Last Admin: 04/13/22 07:26 Dose: 2.5 mg Documented By: ASHELY Pharmacy Consult (Consult Rx Perform Med Rec) 1 each MISCELLANE ONCE PRN PRN Reason: Consult order Polyethylene Glycol (Polyethylene Glycol 3350 17 Gm Powd.Pack) 17 gm PO DAILY PRN PRN Reason: constipation Last Admin: 04/02/22 10:33 Dose: 17 gm Documented By: SIERRA Polyethylene Glycol (Polyethylene Glycol 3350 17 Gm Powd.Pack) 17 gm PO DAILY PRN PRN Reason: Constipation Potassium Chloride (Potassium Chloride Er 20 Meq Tab.Er.Prt) 40 meq PO DAILY [facility] Last Admin: 03/24/22 07:57 Dose: 40 meq Documented By: DIMPLE Quetiapine Fumarate (Quetiapine Fumarate 25 Mg Tablet) 12.5 mg PO BID PRN PRN Reason: anxiety, agitation Last Admin: 04/13/22 07:25 Dose: 12.5 mg Documented By: ASHELY Warfarin Sodium (Warfarin Sodium 3 Mg Tablet) 3 mg PO DAILY@1800 [facility] Last Admin: 04/12/22 17:20 Dose: 3 mg Documented By: JOSE LUIS Labs CBC & Chem 7: 03/05/22 06:20 04/11/22 05:21 Labs: Laboratory Results - last 24 hr 04/13/22 05:46 PT 29.3 H INR 2.5 H Assessment and Plan (1) Psoriatic arthritis: Status: Acute (2) Chronic heart failure: Status: Acute Plan 81yo F with AF (persistent?) + HFpEF, initially was awaiting for LTC placement but became hypotensive and had positive UA concerning for infection, though ultimately grew coag-neg staph from urine and blood determined to be contaminant # UTI finished antibiotic course #? hypertension Seems asymptomatic, chronically? solved looking back Likely related to decrease body tune and being on beta-tony and? diuretics continue to monitor and consider midodrine # Chronic AFib Rate controlled on beta blockade Continue warfarin PT/ INR daily # Chronic HFpEF Not in exacerbation Bumex dose decreased to 1 mg daily from 3 mg b.i.d. at home continue current therapies # Psoriatic arthritis Pain medication as needed adjust as indicated # left eye subconjuctval haemorrage asymptomatic, resolved # ankle pain Started gabapentin 100 mg b.i.d. Oxycodone 2.5 mg q.i.d. as needed VTE ppx warfarin inpatient need: pending LTC placement, safe disposition Quality Stroke Does the patient have a stroke diagnosis?: No VTE Prior VTE?: No VTE Risk Level:: Medical - moderate - high VTE Device Contraindication: Treatment Not Indicated VTE Drug Contraindication: Treatment Not Indicated
[2022-04-13] MEDS: Warfarin Sodium 3 MG TABLET PO (17:46)
[2022-04-14 03:15] VITALS: BP 91/50; PULSE 62; RESP 18; TEMP 36.4; O2SAT 94
[2022-04-14 05:55] VITALS: BP 103/57; PULSE 80
[2022-04-14] MEDS: oxyCODONE HCl Immed Release 5 MG TABLET 2.5 MG PO ×3 (05:58→20:47)
[2022-04-14 08:00] VITALS: BP 122/58; PULSE 82; RESP 16; TEMP 36.3; O2SAT 92
[2022-04-14] MEDS: Bumetanide 1 MG TABLET PO (09:14)
[2022-04-14] MEDS: Lidocaine 4 % Patch ADH..PATCH 1 PATCH TRANSDERMA (09:15)
[2022-04-14] MEDS: Gabapentin 100 MG CAPSULE PO (09:15)
[2022-04-14] MEDS: Escitalopram Oxalate 10 MG TABLET PO (09:15)
[2022-04-14] MEDS: Metoprolol Tartrate 12.5 MG HALFTAB PO ×2 (09:15→20:48)
[2022-04-14] MEDS: polyethylene glycoL 3350 17 GM POWD.PACK PO (09:23)
[2022-04-14 10:27] LABS: INTERNATIONAL NORM RATIO 2.9 (0.9-1.1); Prothrombin Time 35.3 SEC (10.0-13.1)
--- NOTE | 2022-04-14 11:13 | P.PNIM_ITS ---
Subjective Subjective Date of Service: 04/14/22 Interval History: the patient was seen and evaluated this morning Laying? in bed, feels comfortable but complaining of ankle pain Denies shortness of breath No reported other overnight events. Systemic review: No fever, chills or weakness No chest pain, palpitation No shortness of breath or coughing No abdominal pain, nausea or vomiting No urinary symptoms No any rash or wounds Physical Exam Vital Signs: Vital Signs: Last Vital Signs Temp 97.4 F 04/14/22 08:00 Pulse 82 04/14/22 08:00 Resp 16 04/14/22 08:00 BP 122/58 L 04/14/22 08:00 Pulse Ox 92 04/14/22 08:00 O2 Del Method 04/14/22 08:00 O2 Flow Rate 1 04/13/22 22:51 FiO2 99 02/22/22 03:47 BMI result Body Mass Index 28.9 Const: Other: Constitutional : Alert, interactive, not in distress Neck : Normal inspection, Supple Cardiovascular : RRR, no JVP, no lower extremity edema Respiratory : fair bilateral air entry,? no crackles, wheezes or rhonchi, with oxygen supplement Gastrointestinal:? soft, lax, Normal bowel sounds, Non tender Skin : Warm, Dry skin Extremities:? no erythema or swelling noted, chronic deformity to left ankle and foot Neurological : Alert & oriented to self and place, not moving lower extremity use much weaker on the left side Objective Data Active Medications Acetaminophen (Acetaminophen 325 Mg Tablet) 650 mg PO Q6H PRN PRN Reason: Pain, Mild (Pain Scale 1-3) Last Admin: 04/13/22 22:39 Dose: 650 mg Documented By: KEKE Artificial Tears (Artificial Tears 15 Ml Drops) 1 drop EYE-BOTH Q4H PRN PRN Reason: Dry Eyes Bumetanide (Bumetanide 1 Mg Tablet) 1 mg PO DAILY [facility]; Protocol Last Admin: 04/14/22 09:14 Dose: 1 mg Documented By: MILLIE Escitalopram Oxalate (Escitalopram Oxalate 10 Mg Tablet) 10 mg PO DAILY [facility] Last Admin: 04/14/22 09:15 Dose: 10 mg Documented By: MILLIE Gabapentin (Gabapentin 100 Mg Capsule) 200 mg PO BID [facility] Lidocaine (Lidocaine 4 % Patch Adh..Patch) 1 patch TRANSDERMA DAILY [facility]; Protocol Last Admin: 04/14/22 09:15 Dose: 1 patch Documented By: MILLIE Metoprolol Tartrate (Metoprolol Tartrate 12.5 Mg Halftab) 12.5 mg PO BID [facility]; Protocol Last Admin: 04/14/22 09:15 Dose: 12.5 mg Documented By: MILLIE Nystatin (Nystatin Powder 15 Gm Bottle) 1 appl TOPICAL TID [facility]; Protocol Last Admin: 04/14/22 09:16 Dose: Not Given Documented By: MILLIE Non-Admin Reason: rash improved Ondansetron HCl (Ondansetron Odt 4 Mg Tab.Rapdis) 4 mg TRANSLINGU Q6H PRN PRN Reason: Nausea and Vomiting Last Admin: 04/03/22 04:51 Dose: 4 mg Documented By: DANE Oxycodone HCl (Oxycodone Hcl Immed Release 5 Mg Tablet) 2.5 mg PO Q6H PRN PRN Reason: Pain, Severe (Pain Scale 7-10) Last Admin: 04/14/22 05:58 Dose: 2.5 mg Documented By: KEKE Pharmacy Consult (Consult Rx Perform Med Rec) 1 each MISCELLANE ONCE PRN PRN Reason: Consult order Polyethylene Glycol (Polyethylene Glycol 3350 17 Gm Powd.Pack) 17 gm PO DAILY PRN PRN Reason: constipation Last Admin: 04/14/22 09:23 Dose: 17 gm Documented By: MILLIE Polyethylene Glycol (Polyethylene Glycol 3350 17 Gm Powd.Pack) 17 gm PO DAILY PRN PRN Reason: Constipation Quetiapine Fumarate (Quetiapine Fumarate 25 Mg Tablet) 12.5 mg PO BID PRN PRN Reason: anxiety, agitation Last Admin: 04/13/22 07:25 Dose: 12.5 mg Documented By: ASHELY Warfarin Sodium (Warfarin Sodium 3 Mg Tablet) 3 mg PO DAILY@1800 [facility] Last Admin: 04/13/22 17:46 Dose: 3 mg Documented By: DESIREE Labs CBC & Chem 7: 03/05/22 06:20 04/11/22 05:21 Labs: Laboratory Results - last 24 hr 04/14/22 10:02 PT 35.3 H INR 2.9 H Assessment and Plan (1) Chronic heart failure: Status: Acute (2) Chronic atrial fibrillation: Status: Acute Plan 81yo F with AF (persistent?) + HFpEF, initially was awaiting for LTC placement but became hypotensive and had positive UA concerning for infection, though ultimately grew coag-neg staph from urine and blood determined to be contaminant # ankle pain increase gabapentin to 200 mg b.i.d. Oxycodone 2.5 mg q.i.d. as needed # UTI finished antibiotic course #? hypertension Seems asymptomatic, chronically? solved looking back Likely related to decrease body tune and being on beta-tony and? diuretics continue to monitor and consider midodrine # Chronic AFib Rate controlled on beta blockade Continue warfarin PT/ INR daily # Chronic HFpEF Not in exacerbation Bumex dose decreased to 1 mg daily from 3 mg b.i.d. at home continue current therapies # Psoriatic arthritis Pain medication as needed adjust as indicated # left eye subconjuctval haemorrage asymptomatic, resolved VTE ppx warfarin inpatient need: pending LTC placement, safe disposition Quality Stroke Does the patient have a stroke diagnosis?: No VTE Prior VTE?: No VTE Risk Level:: Medical - moderate - high VTE Device Contraindication: Treatment Not Indicated VTE Drug Contraindication: Treatment Not Indicated
[2022-04-14 12:00] VITALS: BP 140/77; PULSE 74; RESP 17; TEMP 36.3; O2SAT 95
[2022-04-14] MEDS: Acetaminophen 325 MG TABLET 650 MG PO (15:43)
[2022-04-14 15:58] VITALS: BP 118/61; PULSE 86; RESP 16; TEMP 36.6; O2SAT 94
[2022-04-14] MEDS: Warfarin Sodium 3 MG TABLET PO (17:49)
[2022-04-14 19:16] VITALS: BP 106/55; PULSE 85; RESP 17; TEMP 36.7; O2SAT 98
[2022-04-14] MEDS: Gabapentin 100 MG CAPSULE 200 MG PO (20:47)
[2022-04-15] VITALS: BP 109/59; PULSE 74; RESP 17; TEMP 36.6; O2SAT 94
[2022-04-15 03:54] VITALS: BP 105/56; PULSE 84; RESP 17; TEMP 36.1; O2SAT 94
[2022-04-15 06:41] LABS: INTERNATIONAL NORM RATIO 2.1 (0.9-1.1); Prothrombin Time 25.1 SEC (10.0-13.1)
[2022-04-15 08:00] VITALS: BP 127/61; PULSE 69; RESP 16; TEMP 36.2; O2SAT 95
[2022-04-15] MEDS: Gabapentin 100 MG CAPSULE 200 MG PO ×2 (08:46→20:24)
[2022-04-15] MEDS: Escitalopram Oxalate 10 MG TABLET PO (08:46)
[2022-04-15] MEDS: Bumetanide 1 MG TABLET PO (08:46)
[2022-04-15] MEDS: Metoprolol Tartrate 12.5 MG HALFTAB PO (08:47)
--- NOTE | 2022-04-15 10:58 | P.PNIM_ITS ---
Subjective Subjective Date of Service: 04/15/22 Interval History: the patient was seen and evaluated this morning Laying? in bed, feels comfortable complaining of ankle pain left leg No reported other overnight events. Systemic review: No fever, chills or weakness No chest pain, palpitation No shortness of breath or coughing No abdominal pain, nausea or vomiting No urinary symptoms No any rash or wounds Physical Exam Vital Signs: Vital Signs: Last Vital Signs Temp 97.1 F 04/15/22 08:00 Pulse 69 04/15/22 08:00 Resp 16 04/15/22 08:00 BP 127/61 04/15/22 08:00 Pulse Ox 95 04/15/22 08:00 O2 Del Method 04/15/22 08:00 O2 Flow Rate 1 04/15/22 03:54 FiO2 99 02/22/22 03:47 BMI result Body Mass Index 28.9 Const: Other: Constitutional : Alert, interactive, not in distress Neck : Normal inspection, Supple Cardiovascular : RRR, no JVP, no lower extremity edema Respiratory : fair bilateral air entry,? no crackles, wheezes or rhonchi, on room air Gastrointestinal:? soft, lax, Normal bowel sounds, Non tender Skin : Warm, Dry skin Extremities:? no erythema or swelling noted, chronic deformity to left ankle and foot Neurological : Alert & oriented to self and place, not moving lower extremity use much weaker on the left side Objective Data Active Medications Acetaminophen (Acetaminophen 325 Mg Tablet) 650 mg PO Q6H PRN PRN Reason: Pain, Mild (Pain Scale 1-3) Last Admin: 04/14/22 15:43 Dose: 650 mg Documented By: MILLIE Artificial Tears (Artificial Tears 15 Ml Drops) 1 drop EYE-BOTH Q4H PRN PRN Reason: Dry Eyes Bumetanide (Bumetanide 1 Mg Tablet) 1 mg PO DAILY [facility]; Protocol Last Admin: 04/15/22 08:46 Dose: 1 mg Documented By: JOSE LUIS Escitalopram Oxalate (Escitalopram Oxalate 10 Mg Tablet) 10 mg PO DAILY [facility] Last Admin: 04/15/22 08:46 Dose: 10 mg Documented By: JOSE LUIS Gabapentin (Gabapentin 100 Mg Capsule) 200 mg PO BID [facility] Last Admin: 04/15/22 08:46 Dose: 200 mg Documented By: JOSE LUIS Lidocaine (Lidocaine 4 % Patch Adh..Patch) 1 patch TRANSDERMA DAILY [facility]; Protocol Last Admin: 04/15/22 09:50 Dose: Not Given Documented By: JOSE LUIS Non-Admin Reason: Patient Refused Metoprolol Tartrate (Metoprolol Tartrate 12.5 Mg Halftab) 12.5 mg PO BID [facility]; Protocol Last Admin: 04/15/22 08:47 Dose: 12.5 mg Documented By: JOSE LUIS Nystatin (Nystatin Powder 15 Gm Bottle) 1 appl TOPICAL TID [facility]; Protocol Last Admin: 04/15/22 09:50 Dose: Not Given Documented By: JOSE LUIS Non-Admin Reason: Patient Refused Ondansetron HCl (Ondansetron Odt 4 Mg Tab.Rapdis) 4 mg TRANSLINGU Q6H PRN PRN Reason: Nausea and Vomiting Last Admin: 04/03/22 04:51 Dose: 4 mg Documented By: DANE Oxycodone HCl (Oxycodone Hcl Immed Release 5 Mg Tablet) 2.5 mg PO Q6H PRN PRN Reason: Pain, Severe (Pain Scale 7-10) Last Admin: 04/14/22 20:47 Dose: 2.5 mg Documented By: RAYMOND Pharmacy Consult (Consult Rx Perform Med Rec) 1 each MISCELLANE ONCE PRN PRN Reason: Consult order Polyethylene Glycol (Polyethylene Glycol 3350 17 Gm Powd.Pack) 17 gm PO DAILY PRN PRN Reason: constipation Last Admin: 04/14/22 09:23 Dose: 17 gm Documented By: MILLIE Polyethylene Glycol (Polyethylene Glycol 3350 17 Gm Powd.Pack) 17 gm PO DAILY PRN PRN Reason: Constipation Quetiapine Fumarate (Quetiapine Fumarate 25 Mg Tablet) 12.5 mg PO BID PRN PRN Reason: anxiety, agitation Last Admin: 04/13/22 07:25 Dose: 12.5 mg Documented By: ASHELY Warfarin Sodium (Warfarin Sodium 3 Mg Tablet) 3 mg PO DAILY@1800 [facility] Last Admin: 04/14/22 17:49 Dose: 3 mg Documented By: MILLIE Labs CBC & Chem 7: 03/05/22 06:20 04/11/22 05:21 Labs: Laboratory Results - last 24 hr 04/15/22 05:55 PT 25.1 H INR 2.1 H Assessment and Plan (1) Chronic heart failure: Status: Acute (2) Psoriatic arthritis: Status: Acute Plan 81yo F with AF (persistent?) + HFpEF, initially was awaiting for LTC placement but became hypotensive and had positive UA concerning for infection, though ultimately grew coag-neg staph from urine and blood determined to be contaminant # ankle pain increase gabapentin to 200 mg b.i.d. Oxycodone 2.5 mg q.i.d. as needed # UTI finished antibiotic course #? hypertension Seems asymptomatic, chronically? solved looking back Likely related to decrease body tune and being on beta-tony and? diuretics continue to monitor and consider midodrine # Chronic AFib Rate controlled on beta blockade Continue warfarin PT/ INR daily # Chronic HFpEF Not in exacerbation Bumex dose decreased to 1 mg daily from 3 mg b.i.d. at home continue current therapies # Psoriatic arthritis Pain medication as needed adjust as indicated # left eye subconjuctval haemorrage asymptomatic, resolved VTE ppx warfarin inpatient need: pending LTC placement, safe disposition Quality Stroke Does the patient have a stroke diagnosis?: No VTE Prior VTE?: No VTE Risk Level:: Medical - moderate - high VTE Device Contraindication: Treatment Not Indicated VTE Drug Contraindication: Treatment Not Indicated
[2022-04-15] MEDS: oxyCODONE HCl Immed Release 5 MG TABLET 2.5 MG PO ×3 (11:02→23:37)
[2022-04-15 11:55] VITALS: BP 135/64; PULSE 73; RESP 16; TEMP 37.1; O2SAT 95
[2022-04-15 15:08] VITALS: BP 97/55; PULSE 78; RESP 17; TEMP 36.8; O2SAT 94
--- NOTE | 2022-04-15 16:18 | MHC.CM.PN ---
CM MET W/SON ON UNIT, SON REPORTS HE DID NOT READ CM'S EMAIL WITH REQUEST FOR HIM TO COME IN MONDAY 04/16 INSTEAD OF THURSDAY, HERI REPORTS HE CAN NOT MAKE IT TOMORROW HOWEVER HE WILL CALL CM TOMORROW W/KEYANA, HERI AWARE WE ARE LOOKING FOR THE LAST 5YRS OF BANK STATEMENTS FOR PT'S ACCT AND PT'S JOINT ACCOUNT W/, HERI REPORTS HE WILL ATTEMPT TO ASSIST HIS SISTER IN OBTAINING RECORDS. PT CONT'S TO HAVE NO BED OFFERS SHE HAS NO LTC PAYOR.
[2022-04-15] MEDS: Warfarin Sodium 3 MG TABLET PO (17:08)
[2022-04-15 19:37] VITALS: BP 109/51; PULSE 69; RESP 17; TEMP 36.6; O2SAT 95
[2022-04-15] MEDS: Acetaminophen 325 MG TABLET 650 MG PO (23:35)
[2022-04-16] VITALS: BP 109/57; PULSE 80; RESP 17; TEMP 36.4; O2SAT 96
[2022-04-16 04:00] VITALS: BP 102/58; PULSE 70; RESP 18; TEMP 36.4; O2SAT 98
[2022-04-16] MEDS: Acetaminophen 325 MG TABLET 650 MG PO (06:11)
[2022-04-16 07:13] VITALS: BP 97/53; PULSE 66; RESP 16; TEMP 35.9; O2SAT 97
[2022-04-16 07:17] LABS: INTERNATIONAL NORM RATIO 2.4 (0.9-1.1); Prothrombin Time 28.8 SEC (10.0-13.1)
[2022-04-16] MEDS: Bumetanide 1 MG TABLET PO (08:55)
[2022-04-16] MEDS: Metoprolol Tartrate 12.5 MG HALFTAB PO ×2 (08:55→20:22)
[2022-04-16] MEDS: Escitalopram Oxalate 10 MG TABLET PO (08:55)
[2022-04-16] MEDS: Gabapentin 100 MG CAPSULE 200 MG PO ×2 (08:55→20:23)
--- NOTE | 2022-04-16 09:52 | HO.PM.IMPN ---
Subjective Subjective Date of Service: 04/16/22 Interval History: the patient was seen and evaluated this morning Laying? in bed, feels comfortable complaining of ankle pain left leg No reported other overnight events. Systemic review: No fever, chills or weakness No chest pain, palpitation No shortness of breath or coughing No abdominal pain, nausea or vomiting No urinary symptoms No any rash or wounds Physical Exam Vital Signs: Vital Signs: Last Vital Signs Temp 96.6 F L 04/16/22 07:13 Pulse 66 04/16/22 07:13 Resp 16 04/16/22 07:13 BP 97/53 L 04/16/22 07:13 Pulse Ox 97 04/16/22 07:13 O2 Del Method 04/16/22 07:13 O2 Flow Rate 1 04/16/22 07:13 FiO2 99 02/22/22 03:47 BMI result Body Mass Index 28.9 Const: Other: Constitutional : Alert, interactive, not in distress Neck : Normal inspection, Supple Cardiovascular : RRR, no JVP, no lower extremity edema Respiratory : fair bilateral air entry,? no crackles, wheezes or rhonchi, on room air Gastrointestinal:? soft, lax, Normal bowel sounds, Non tender Skin : Warm, Dry skin Extremities:? no erythema or swelling noted, chronic deformity to left ankle and foot Neurological : Alert & oriented to self and place, not moving lower extremity use much weaker on the left side Objective Data Active Medications Acetaminophen (Acetaminophen 325 Mg Tablet) 650 mg PO Q6H PRN PRN Reason: Pain, Mild (Pain Scale 1-3) Last Admin: 04/16/22 06:11 Dose: 650 mg Documented By: TACOS Artificial Tears (Artificial Tears 15 Ml Drops) 1 drop EYE-BOTH Q4H PRN PRN Reason: Dry Eyes Bumetanide (Bumetanide 1 Mg Tablet) 1 mg PO DAILY [facility]; Protocol Last Admin: 04/16/22 08:55 Dose: 1 mg Documented By: JOSE LUIS Escitalopram Oxalate (Escitalopram Oxalate 10 Mg Tablet) 10 mg PO DAILY [facility] Last Admin: 04/16/22 08:55 Dose: 10 mg Documented By: JOSE LUIS Gabapentin (Gabapentin 100 Mg Capsule) 200 mg PO BID [facility] Last Admin: 04/16/22 08:55 Dose: 200 mg Documented By: JOSE LUIS Lidocaine (Lidocaine 4 % Patch Adh..Patch) 1 patch TRANSDERMA DAILY [facility]; Protocol Last Admin: 04/16/22 08:56 Dose: Not Given Documented By: JOSE LUIS Non-Admin Reason: Patient Refused Metoprolol Tartrate (Metoprolol Tartrate 12.5 Mg Halftab) 12.5 mg PO BID [facility]; Protocol Last Admin: 04/16/22 08:55 Dose: 12.5 mg Documented By: JOSE LUIS Nystatin (Nystatin Powder 15 Gm Bottle) 1 appl TOPICAL TID [facility]; Protocol Last Admin: 04/16/22 08:57 Dose: Not Given Documented By: JOSE LUIS Non-Admin Reason: Patient Refused Ondansetron HCl (Ondansetron Odt 4 Mg Tab.Rapdis) 4 mg TRANSLINGU Q6H PRN PRN Reason: Nausea and Vomiting Last Admin: 04/03/22 04:51 Dose: 4 mg Documented By: DANE Oxycodone HCl (Oxycodone Hcl Immed Release 5 Mg Tablet) 2.5 mg PO Q6H PRN PRN Reason: Pain, Severe (Pain Scale 7-10) Last Admin: 04/15/22 23:37 Dose: 2.5 mg Documented By: TACOS Pharmacy Consult (Consult Rx Perform Med Rec) 1 each MISCELLANE ONCE PRN PRN Reason: Consult order Polyethylene Glycol (Polyethylene Glycol 3350 17 Gm Powd.Pack) 17 gm PO DAILY PRN PRN Reason: constipation Last Admin: 04/14/22 09:23 Dose: 17 gm Documented By: MILLIE Polyethylene Glycol (Polyethylene Glycol 3350 17 Gm Powd.Pack) 17 gm PO DAILY PRN PRN Reason: Constipation Quetiapine Fumarate (Quetiapine Fumarate 25 Mg Tablet) 12.5 mg PO BID PRN PRN Reason: anxiety, agitation Last Admin: 04/13/22 07:25 Dose: 12.5 mg Documented By: ASHELY Warfarin Sodium (Warfarin Sodium 3 Mg Tablet) 3 mg PO DAILY@1800 [facility] Last Admin: 04/15/22 17:08 Dose: 3 mg Documented By: JOSE LUIS Labs CBC & Chem 7: 03/05/22 06:20 04/11/22 05:21 Labs: Laboratory Results - last 24 hr 04/16/22 06:11 PT 28.8 H INR 2.4 H Assessment and Plan (1) Chronic heart failure: Status: Acute (2) Psoriatic arthritis: Status: Acute Plan 81yo F with AF (persistent?) + HFpEF, initially was awaiting for LTC placement but became hypotensive and had positive UA concerning for infection, though ultimately grew coag-neg staph from urine and blood determined to be contaminant ankle pain increase gabapentin to 200 mg b.i.d. Oxycodone 2.5 mg q.i.d. as needed UTI finished antibiotic course hypotension Seems asymptomatic, chronically? solved looking back Likely related to decrease body tune and being on beta-tony and?diuretics Chronic AFib Rate controlled on beta blockade Continue warfarin PT/ INR daily Chronic HFpEF Not in exacerbation Bumex dose decreased to 1 mg daily from 3 mg b.i.d. at home continue current therapies Psoriatic arthritis Pain medication as needed adjust as indicated left eye subconjuctval haemorrage asymptomatic, resolved VTE ppx warfarin inpatient need: pending LTC placement, safe disposition Quality Stroke Does the patient have a stroke diagnosis?: No VTE Prior VTE?: No VTE Risk Level:: Medical - moderate - high VTE Device Contraindication: Treatment Not Indicated VTE Drug Contraindication: Treatment Not Indicated
[2022-04-16 11:30] VITALS: BP 106/60; PULSE 75; RESP 17; TEMP 36.7; O2SAT 97
--- NOTE | 2022-04-16 12:53 | MHC.CLN ---
F/U DIET=CARDIAC. SUPPLEMENT ENSURE BID PROVIDES ADDITIONAL 700 KCALS, 40 G PROTEIN. SKIN NOW WITH REDNESS TO BUTTOCKS. SUPPLEMENT APPROPRIATE TO PROMOTE SKIN INTEGRITY. INTAKE APPEARS GOOD WITH MOST MEALS 100%. CONTINUE TO FOLLOW FOR INTAKE AND SKIN INTEGRITY. RD TO FOLLOW WEEKLY.
[2022-04-16 15:27] VITALS: BP 115/57; PULSE 78; RESP 17; TEMP 36.3; O2SAT 98
[2022-04-16] MEDS: Warfarin Sodium 3 MG TABLET PO (17:44)
[2022-04-16] MEDS: oxyCODONE HCl Immed Release 5 MG TABLET 2.5 MG PO (18:41)
[2022-04-16 19:11] VITALS: BP 130/65; PULSE 86; RESP 16; TEMP 36.6; O2SAT 96
[2022-04-17] VITALS: BP 95/53; PULSE 69; RESP 17; TEMP 36.4; O2SAT 96
[2022-04-17] MEDS: Acetaminophen 325 MG TABLET 650 MG PO ×3 (03:26→17:42)
[2022-04-17] MEDS: oxyCODONE HCl Immed Release 5 MG TABLET 2.5 MG PO ×2 (03:27→10:33)
[2022-04-17 05:59] LABS: Hematocrit 29.3 % (37.0-47.0); Hemoglobin 9.3 g/dl (12.0-16.0); Mean Corpuscular HGB Conc 31.7 g/dl (31.0-35.0); Mean Corpuscular Hemoglobin 30.7 pg (27.0-33.0); Mean Corpuscular Volume 96.7 fL (80.0-98.0); Mean Platelet Volume 9.3 fL (9.4-12.3); Platelet Count 179 X10*3/uL (160-400); Red Blood Count 3.03 X10*6/uL (4.20-5.50); Red Cell Distribution Width 14.6 % (11.0-16.0); White Blood Count 4.5 X10*3/uL (4.8-10.8)
[2022-04-17 06:05] LABS: INTERNATIONAL NORM RATIO 2.7 (0.9-1.1); Prothrombin Time 32.7 SEC (10.0-13.1)
[2022-04-17 06:20] LABS: Anion Gap 9 (12-20); Blood Urea Nitrogen 21 mg/dL (9-16); Calcium 7.8 mg/dL (8.4-10.2); Carbon Dioxide 37 mmol/L (22-29); Chloride 99 mmol/L (96-108); Creatinine Clr Calc Pharmacy 62.1; Estimated Glomerular Filt Rate > 60; Glucose Fasting 99 mg/dL (60-99); Sodium 142 mmol/L (135-145)
[2022-04-17 07:43] VITALS: BP 108/56; PULSE 80; RESP 18; TEMP 36.2; O2SAT 92
[2022-04-17] MEDS: Lidocaine 4 % Patch ADH..PATCH 1 PATCH TRANSDERMA (08:51)
[2022-04-17] MEDS: Bumetanide 1 MG TABLET PO (08:51)
[2022-04-17] MEDS: Gabapentin 100 MG CAPSULE 200 MG PO ×2 (08:51→19:35)
[2022-04-17] MEDS: Escitalopram Oxalate 10 MG TABLET PO (08:51)
[2022-04-17] MEDS: Metoprolol Tartrate 12.5 MG HALFTAB PO ×2 (08:51→19:36)
--- NOTE | 2022-04-17 08:54 | P.PNIM_ITS ---
Subjective Subjective Date of Service: 04/17/22 Interval History: the patient was seen and evaluated this morning Laying? in bed, feels comfortable No reported other overnight events. Systemic review: No fever, chills or weakness No chest pain, palpitation No shortness of breath or coughing No abdominal pain, nausea or vomiting No urinary symptoms No any rash or wounds Physical Exam Vital Signs: Vital Signs: Last Vital Signs Temp 97.1 F 04/17/22 07:43 Pulse 80 04/17/22 07:43 Resp 18 04/17/22 07:43 BP 108/56 L 04/17/22 07:43 Pulse Ox 92 04/17/22 07:43 O2 Del Method 04/17/22 07:43 O2 Flow Rate 1 04/17/22 07:43 FiO2 99 02/22/22 03:47 BMI result Body Mass Index 28.9 Const: Other: Constitutional : Alert, interactive, not in distress Neck : Normal inspection, Supple Cardiovascular : RRR, no JVP, no lower extremity edema Respiratory : fair bilateral air entry,? no crackles, wheezes or rhonchi, on room air Gastrointestinal:? soft, lax, Normal bowel sounds, Non tender Skin : Warm, Dry skin Extremities:? no erythema or swelling noted, chronic deformity to left ankle and foot Neurological : Alert & oriented to self and place, not moving lower extremity use much weaker on the left side Objective Data Active Medications Acetaminophen (Acetaminophen 325 Mg Tablet) 650 mg PO Q6H PRN PRN Reason: Pain, Mild (Pain Scale 1-3) Last Admin: 04/17/22 03:26 Dose: 650 mg Documented By: BA Artificial Tears (Artificial Tears 15 Ml Drops) 1 drop EYE-BOTH Q4H PRN PRN Reason: Dry Eyes Bumetanide (Bumetanide 1 Mg Tablet) 1 mg PO DAILY [facility]; Protocol Last Admin: 04/17/22 08:51 Dose: 1 mg Documented By: DESIREE Escitalopram Oxalate (Escitalopram Oxalate 10 Mg Tablet) 10 mg PO DAILY [facility] Last Admin: 04/17/22 08:51 Dose: 10 mg Documented By: DSEIREE Gabapentin (Gabapentin 100 Mg Capsule) 200 mg PO BID [facility] Last Admin: 04/17/22 08:51 Dose: 200 mg Documented By: DESIREE Lidocaine (Lidocaine 4 % Patch Adh..Patch) 1 patch TRANSDERMA DAILY [facility]; Protocol Last Admin: 04/17/22 08:51 Dose: 1 patch Documented By: DESIREE Metoprolol Tartrate (Metoprolol Tartrate 12.5 Mg Halftab) 12.5 mg PO BID [facility]; Protocol Last Admin: 04/17/22 08:51 Dose: 12.5 mg Documented By: DESIREE Nystatin (Nystatin Powder 15 Gm Bottle) 1 appl TOPICAL TID [facility]; Protocol Last Admin: 04/17/22 08:52 Dose: Not Given Documented By: DESIREE Non-Admin Reason: Patient Refused Ondansetron HCl (Ondansetron Odt 4 Mg Tab.Rapdis) 4 mg TRANSLINGU Q6H PRN PRN Reason: Nausea and Vomiting Last Admin: 04/03/22 04:51 Dose: 4 mg Documented By: DANE Oxycodone HCl (Oxycodone Hcl Immed Release 5 Mg Tablet) 2.5 mg PO Q6H PRN PRN Reason: Pain, Severe (Pain Scale 7-10) Last Admin: 04/17/22 03:27 Dose: 2.5 mg Documented By: BA Pharmacy Consult (Consult Rx Perform Med Rec) 1 each MISCELLANE ONCE PRN PRN Reason: Consult order Polyethylene Glycol (Polyethylene Glycol 3350 17 Gm Powd.Pack) 17 gm PO DAILY PRN PRN Reason: constipation Last Admin: 04/14/22 09:23 Dose: 17 gm Documented By: MILLIE Polyethylene Glycol (Polyethylene Glycol 3350 17 Gm Powd.Pack) 17 gm PO DAILY PRN PRN Reason: Constipation Quetiapine Fumarate (Quetiapine Fumarate 25 Mg Tablet) 12.5 mg PO BID PRN PRN Reason: anxiety, agitation Last Admin: 04/13/22 07:25 Dose: 12.5 mg Documented By: ASHELY Warfarin Sodium (Warfarin Sodium 3 Mg Tablet) 3 mg PO DAILY@1800 N[facility] Last Admin: 04/16/22 17:44 Dose: 3 mg Documented By: JOSE LUIS Labs CBC & Chem 7: 04/17/22 05:13 04/17/22 05:13 Labs: Laboratory Results - last 24 hr 04/17/22 04/17/22 04/17/22 05:13 05:13 05:13 MCV 96.7 MCH 30.7 MCHC 31.7 RDW 14.6 Plt Count 179 MPV 9.3 L Absolute Nucleated RBC 0.000 Nucleated RBC % (auto) 0.0 PT 32.7 H INR 2.7 H Anion Gap 9 L Estim Creat Clear Calc 62.1 Estimated GFR > 60 Fasting Glucose 99 Calcium 7.8 L Assessment and Plan (1) Chronic heart failure: Status: Acute (2) Psoriatic arthritis: Status: Acute Plan 81yo F with AF (persistent?) + HFpEF, initially was awaiting for LTC placement but became hypotensive and had positive UA concerning for infection, though ultimately grew coag-neg staph from urine and blood determined to be contaminant ankle pain increase gabapentin to 200 mg b.i.d. Oxycodone 2.5 mg q.i.d. as needed UTI finished antibiotic course hypotension Seems asymptomatic, chronically? solved looking back Likely related to decrease body tune and being on beta-tony and?diuretics Chronic AFib Rate controlled on beta blockade Continue warfarin PT/ INR daily Chronic HFpEF Not in exacerbation Bumex dose decreased to 1 mg daily from 3 mg b.i.d. at home continue current therapies Psoriatic arthritis Pain medication as needed adjust as indicated left eye subconjuctval haemorrage asymptomatic, resolved VTE ppx warfarin inpatient need: pending LTC placement, safe disposition Quality Stroke Does the patient have a stroke diagnosis?: No VTE Prior VTE?: No VTE Risk Level:: Medical - moderate - high VTE Device Contraindication: Treatment Not Indicated VTE Drug Contraindication: Treatment Not Indicated
[2022-04-17 11:05] VITALS: BP 96/54; PULSE 70; RESP 18; TEMP 36.2; O2SAT 98
--- NOTE | 2022-04-17 13:45 | MHC.CM.PN ---
EMR REVIEWED, PER [employer] NEITHER SON NOR DTR HAS BROUGHT IN ADDITIONAL BANK STATEMENTS FOR PT, SON HERI WAS SUPPOSED TO FOLLOW UP W/CM YESTERDAY 04/16 REGARDING SCHEDULE HOWEVER DID NOT, CM ATTEMPTED TO CONTACT HERI AT 1:45PM AT NUMBER ON FILE W/NO ANSWER, MESSAGE LEFT W/CM CONTACT INFO. CM WILL CONT TO FOLLOW.
[2022-04-17 15:13] VITALS: BP 114/60; PULSE 101; RESP 18; TEMP 36.3; O2SAT 93
[2022-04-17] MEDS: Warfarin Sodium 3 MG TABLET PO (17:20)
[2022-04-17 19:34] VITALS: BP 115/57; PULSE 100; RESP 18; TEMP 36.7; O2SAT 97
[2022-04-17] MEDS: oxyCODONE HCl Immed Release 15 MG TABLET 2.5 MG PO (20:30)
[2022-04-18] VITALS (9 sets, daily range): BP systolic 87–115; BP diastolic 50–67; PULSE 63–97; RESP 16–18; TEMP 36.6–37.1; O2SAT 95–98
[2022-04-18 06:22] LABS: INTERNATIONAL NORM RATIO 2.4 (0.9-1.1); Prothrombin Time 28.6 SEC (10.0-13.1)
[2022-04-18] MEDS: Acetaminophen 325 MG TABLET 650 MG PO (06:38)
[2022-04-18] MEDS: Bumetanide 1 MG TABLET PO (08:33)
[2022-04-18] MEDS: Gabapentin 100 MG CAPSULE 200 MG PO ×2 (08:34→21:34)
[2022-04-18] MEDS: Escitalopram Oxalate 10 MG TABLET PO (08:34)
[2022-04-18] MEDS: Metoprolol Tartrate 12.5 MG HALFTAB PO ×2 (08:34→21:34)
--- NOTE | 2022-04-18 08:42 | P.PNIM_ITS ---
Subjective Subjective Date of Service: 04/18/22 Interval History: the patient was seen and evaluated this morning Laying? in bed, feels comfortable No reported other overnight events. Systemic review: No fever, chills or weakness No chest pain, palpitation No shortness of breath or coughing No abdominal pain, nausea or vomiting No urinary symptoms No any rash or wounds Physical Exam Vital Signs: Vital Signs: Last Vital Signs Temp 98.4 F 04/18/22 07:46 Pulse 77 04/18/22 07:46 Resp 16 04/18/22 07:46 BP 115/64 04/18/22 07:46 Pulse Ox 96 04/18/22 07:46 O2 Del Method 04/18/22 07:46 O2 Flow Rate 1.0 04/18/22 07:46 FiO2 99 02/22/22 03:47 BMI result Body Mass Index 28.9 Const: Other: Constitutional : Alert, interactive, not in distress Neck : Normal inspection, Supple Cardiovascular : RRR, no JVP, no lower extremity edema Respiratory : fair bilateral air entry,? no crackles, wheezes or rhonchi, on room air Gastrointestinal:? soft, lax, Normal bowel sounds, Non tender Skin : Warm, Dry skin Extremities:? no erythema or swelling noted, chronic deformity to left ankle and foot Neurological : Alert & oriented to self and place, not moving lower extremity use much weaker on the left side Objective Data Active Medications Acetaminophen (Acetaminophen 325 Mg Tablet) 650 mg PO Q6H PRN PRN Reason: Pain, Mild (Pain Scale 1-3) Last Admin: 04/18/22 06:38 Dose: 650 mg Documented By: CHARI Artificial Tears (Artificial Tears 15 Ml Drops) 1 drop EYE-BOTH Q4H PRN PRN Reason: Dry Eyes Bumetanide (Bumetanide 1 Mg Tablet) 1 mg PO DAILY [facility]; Protocol Last Admin: 04/18/22 08:33 Dose: 1 mg Documented By: AAKASH Escitalopram Oxalate (Escitalopram Oxalate 10 Mg Tablet) 10 mg PO DAILY [facility] Last Admin: 04/18/22 08:34 Dose: 10 mg Documented By: AAKASH Gabapentin (Gabapentin 100 Mg Capsule) 200 mg PO BID [facility] Last Admin: 04/18/22 08:34 Dose: 200 mg Documented By: AAKASH Lidocaine (Lidocaine 4 % Patch Adh..Patch) 1 patch TRANSDERMA DAILY [facility]; Protocol Last Admin: 04/18/22 08:34 Dose: Not Given Documented By: AAKASH Non-Admin Reason: Patient Refused Metoprolol Tartrate (Metoprolol Tartrate 12.5 Mg Halftab) 12.5 mg PO BID [facility]; Protocol Last Admin: 04/18/22 08:34 Dose: 12.5 mg Documented By: AAKASH Nystatin (Nystatin Powder 15 Gm Bottle) 1 appl TOPICAL TID [facility]; Protocol Last Admin: 04/18/22 08:41 Dose: Not Given Documented By: AAKASH Non-Admin Reason: Patient Refused Ondansetron HCl (Ondansetron Odt 4 Mg Tab.Rapdis) 4 mg TRANSLINGU Q6H PRN PRN Reason: Nausea and Vomiting Last Admin: 04/03/22 04:51 Dose: 4 mg Documented By: DANE Oxycodone HCl (Oxycodone Hcl Immed Release 15 Mg Tablet) 2.5 mg PO Q6H PRN PRN Reason: Pain, Moderate (Pain Scale 4-6 Last Admin: 04/17/22 20:30 Dose: 2.5 mg Documented By: CHARI Pharmacy Consult (Consult Rx Perform Med Rec) 1 each MISCELLANE ONCE PRN PRN Reason: Consult order Polyethylene Glycol (Polyethylene Glycol 3350 17 Gm Powd.Pack) 17 gm PO DAILY PRN PRN Reason: constipation Last Admin: 04/14/22 09:23 Dose: 17 gm Documented By: MILLIE Polyethylene Glycol (Polyethylene Glycol 3350 17 Gm Powd.Pack) 17 gm PO DAILY PRN PRN Reason: Constipation Quetiapine Fumarate (Quetiapine Fumarate 25 Mg Tablet) 12.5 mg PO BID PRN PRN Reason: anxiety, agitation Last Admin: 04/13/22 07:25 Dose: 12.5 mg Documented By: ASHELY Warfarin Sodium (Warfarin Sodium 3 Mg Tablet) 3 mg PO DAILY@1800 [facility] Last Admin: 04/17/22 17:20 Dose: 3 mg Documented By: DESIREE Labs CBC & Chem 7: 04/17/22 05:13 04/17/22 05:13 Labs: Laboratory Results - last 24 hr 04/18/22 05:48 PT 28.6 H INR 2.4 H Assessment and Plan (1) Chronic heart failure: Status: Acute (2) Psoriatic arthritis: Status: Acute Plan 81yo F with AF (persistent?) + HFpEF, initially was awaiting for LTC placement but became hypotensive and had positive UA concerning for infection, though ultimately grew coag-neg staph from urine and blood determined to be contaminant ankle pain increase gabapentin to 200 mg b.i.d. Oxycodone 2.5 mg q.i.d. as needed UTI finished antibiotic course hypotension Seems asymptomatic, chronically? solved looking back Likely related to decrease body tune and being on beta-tony and?diuretics Chronic AFib Rate controlled on beta blockade Continue warfarin PT/ INR daily Chronic HFpEF Not in exacerbation Bumex dose decreased to 1 mg daily from 3 mg b.i.d. at home continue current therapies Psoriatic arthritis Pain medication as needed adjust as indicated left eye subconjuctval haemorrage asymptomatic, resolved VTE ppx warfarin inpatient need: pending LTC placement, safe disposition Quality Stroke Does the patient have a stroke diagnosis?: No VTE Prior VTE?: No VTE Risk Level:: Medical - moderate - high VTE Device Contraindication: Treatment Not Indicated VTE Drug Contraindication: Treatment Not Indicated
[2022-04-18] MEDS: oxyCODONE HCl Immed Release 5 MG TABLET 2.5 MG PO ×2 (15:44→21:55)
[2022-04-18] MEDS: Warfarin Sodium 3 MG TABLET PO (17:38)
[2022-04-18] MEDS: Nystatin Powder 15 GM BOTTLE 1 APPL TOPICAL (21:42)
[2022-04-19] VITALS (8 sets, daily range): BP systolic 95–115; BP diastolic 55–65; PULSE 72–88; RESP 17–18; TEMP 36.2–37; O2SAT 96–99
[2022-04-19 05:59] LABS: INTERNATIONAL NORM RATIO 2.2 (0.9-1.1); Prothrombin Time 26.4 SEC (10.0-13.1)
[2022-04-19] MEDS: Metoprolol Tartrate 12.5 MG HALFTAB PO ×2 (08:46→20:21)
[2022-04-19] MEDS: Bumetanide 1 MG TABLET PO (08:46)
[2022-04-19] MEDS: Gabapentin 100 MG CAPSULE 200 MG PO ×2 (08:46→21:05)
[2022-04-19] MEDS: Escitalopram Oxalate 10 MG TABLET PO (08:46)
--- NOTE | 2022-04-19 09:53 | HO.PM.IMPN ---
Subjective Subjective Date of Service: 04/19/22 Interval History: the patient was seen and evaluated this morning Laying? in bed, feels comfortable No reported other overnight events. Systemic review: No fever, chills or weakness No chest pain, palpitation No shortness of breath or coughing No abdominal pain, nausea or vomiting No urinary symptoms No any rash or wounds Physical Exam Vital Signs: Vital Signs: Last Vital Signs Temp 98.6 F 04/19/22 08:00 Pulse 80 04/19/22 08:00 Resp 18 04/19/22 08:00 BP 114/57 L 04/19/22 08:00 Pulse Ox 98 04/19/22 08:00 O2 Del Method 04/19/22 08:00 O2 Flow Rate 1 04/19/22 08:00 FiO2 99 02/22/22 03:47 BMI result Body Mass Index 28.9 Const: Other: Constitutional : Alert, interactive, not in distress Neck : Normal inspection, Supple Cardiovascular : RRR, no JVP, no lower extremity edema Respiratory : fair bilateral air entry,? no crackles, wheezes or rhonchi, on room air Gastrointestinal:? soft, lax, Normal bowel sounds, Non tender Skin : Warm, Dry skin Extremities:? no erythema or swelling noted, chronic deformity to left ankle and foot Neurological : Alert & oriented to self and place, not moving lower extremity use much weaker on the left side Objective Data Active Medications Acetaminophen (Acetaminophen 325 Mg Tablet) 650 mg PO Q6H PRN PRN Reason: Pain, Mild (Pain Scale 1-3) Last Admin: 04/18/22 06:38 Dose: 650 mg Documented By: CHARI Artificial Tears (Artificial Tears 15 Ml Drops) 1 drop EYE-BOTH Q4H PRN PRN Reason: Dry Eyes Bumetanide (Bumetanide 1 Mg Tablet) 1 mg PO DAILY [facility]; Protocol Last Admin: 04/19/22 08:46 Dose: 1 mg Documented By: JOSE LUIS Escitalopram Oxalate (Escitalopram Oxalate 10 Mg Tablet) 10 mg PO DAILY [facility] Last Admin: 04/19/22 08:46 Dose: 10 mg Documented By: JOSE LUIS Gabapentin (Gabapentin 100 Mg Capsule) 200 mg PO BID [facility] Last Admin: 04/19/22 08:46 Dose: 200 mg Documented By: JOSE LUIS Lidocaine (Lidocaine 4 % Patch Adh..Patch) 1 patch TRANSDERMA DAILY [facility]; Protocol Last Admin: 04/19/22 08:50 Dose: Not Given Documented By: JOSE LUIS Non-Admin Reason: Patient Refused Metoprolol Tartrate (Metoprolol Tartrate 12.5 Mg Halftab) 12.5 mg PO BID [facility]; Protocol Last Admin: 04/19/22 08:46 Dose: 12.5 mg Documented By: JOSE LUIS Nystatin (Nystatin Powder 15 Gm Bottle) 1 appl TOPICAL TID [facility]; Protocol Last Admin: 04/19/22 08:46 Dose: Not Given Documented By: JOSE LUIS Non-Admin Reason: Patient Refused Ondansetron HCl (Ondansetron Odt 4 Mg Tab.Rapdis) 4 mg TRANSLINGU Q6H PRN PRN Reason: Nausea and Vomiting Last Admin: 04/03/22 04:51 Dose: 4 mg Documented By: DANE Oxycodone HCl (Oxycodone Hcl Immed Release 5 Mg Tablet) 2.5 mg PO Q6H PRN PRN Reason: Pain, Moderate (Pain Scale 4-6 Last Admin: 04/18/22 21:55 Dose: 2.5 mg Documented By: DEREK Oxycodone HCl (Oxycodone Hcl Immed Release 5 Mg Tablet) 2.5 mg PO Q6H PRN PRN Reason: Pain, Moderate (Pain Scale 4-6 Pharmacy Consult (Consult Rx Perform Med Rec) 1 each MISCELLANE ONCE PRN PRN Reason: Consult order Polyethylene Glycol (Polyethylene Glycol 3350 17 Gm Powd.Pack) 17 gm PO DAILY PRN PRN Reason: constipation Last Admin: 04/14/22 09:23 Dose: 17 gm Documented By: MILLIE Polyethylene Glycol (Polyethylene Glycol 3350 17 Gm Powd.Pack) 17 gm PO DAILY PRN PRN Reason: Constipation Quetiapine Fumarate (Quetiapine Fumarate 25 Mg Tablet) 12.5 mg PO BID PRN PRN Reason: anxiety, agitation Last Admin: 04/13/22 07:25 Dose: 12.5 mg Documented By: ASHELY Warfarin Sodium (Warfarin Sodium 3 Mg Tablet) 3 mg PO DAILY@1800 NORM Last Admin: 04/18/22 17:38 Dose: 3 mg Documented By: AAKASH Labs CBC & Chem 7: 04/17/22 05:13 04/17/22 05:13 Labs: Laboratory Results - last 24 hr 04/19/22 05:43 PT 26.4 H INR 2.2 H Assessment and Plan (1) Chronic heart failure: Status: Acute (2) Psoriatic arthritis: Status: Acute Plan 81yo F with AF (persistent?) + HFpEF, initially was awaiting for LTC placement but became hypotensive and had positive UA concerning for infection, though ultimately grew coag-neg staph from urine and blood determined to be contaminant ankle pain increase gabapentin to 200 mg b.i.d. Oxycodone 2.5 mg q.i.d. as needed UTI finished antibiotic course hypotension Seems asymptomatic, chronically? solved looking back Likely related to decrease body tune and being on beta-tony and?diuretics Chronic AFib Rate controlled on beta blockade Continue warfarin PT/ INR daily Chronic HFpEF Not in exacerbation Bumex dose decreased to 1 mg daily from 3 mg b.i.d. at home continue current therapies Psoriatic arthritis Pain medication as needed adjust as indicated left eye subconjuctval haemorrage asymptomatic, resolved VTE ppx warfarin inpatient need: pending LTC placement, safe disposition Quality Stroke Does the patient have a stroke diagnosis?: No VTE Prior VTE?: No VTE Risk Level:: Medical - moderate - high VTE Device Contraindication: Treatment Not Indicated VTE Drug Contraindication: Treatment Not Indicated
[2022-04-19] MEDS: oxyCODONE HCl Immed Release 5 MG TABLET 2.5 MG PO (16:58)
[2022-04-19] MEDS: Warfarin Sodium 3 MG TABLET PO (16:59)
[2022-04-19] MEDS: Nystatin Powder 15 GM BOTTLE 1 APPL TOPICAL (21:05)
[2022-04-20] VITALS: BP 103/50; PULSE 82; RESP 17; TEMP 36.1; O2SAT 96
[2022-04-20] MEDS: QUEtiapine Fumarate 25 MG TABLET 12.5 MG PO (00:02)
[2022-04-20] MEDS: oxyCODONE HCl Immed Release 5 MG TABLET 2.5 MG PO ×3 (00:03→17:38)
[2022-04-20 06:18] LABS: INTERNATIONAL NORM RATIO 2.2 (0.9-1.1); Prothrombin Time 25.5 SEC (10.0-13.1)
[2022-04-20 08:00] VITALS: BP 107/57; PULSE 84; RESP 18; TEMP 36.7; O2SAT 94
--- NOTE | 2022-04-20 08:12 | P.PNIM_ITS ---
Subjective Subjective Date of Service: 04/20/22 Interval History: the patient was seen and evaluated this morning Laying? in bed, feels comfortable No reported other overnight events. Systemic review: No fever, chills or weakness No chest pain, palpitation No shortness of breath or coughing No abdominal pain, nausea or vomiting No urinary symptoms No any rash or wounds Physical Exam Vital Signs: Vital Signs: Last Vital Signs Temp 97 F 04/20/22 00:00 Pulse 82 04/20/22 00:00 Resp 17 04/20/22 00:00 BP 103/50 L 04/20/22 00:00 Pulse Ox 96 04/20/22 00:00 O2 Del Method 04/20/22 00:00 O2 Flow Rate 1 04/20/22 00:00 FiO2 99 02/22/22 03:47 BMI result Body Mass Index 28.9 Const: Other: Constitutional : Alert, interactive, not in distress Neck : Normal inspection, Supple Cardiovascular : RRR, no JVP, no lower extremity edema Respiratory : fair bilateral air entry,? no crackles, wheezes or rhonchi, on room air Gastrointestinal:? soft, lax, Normal bowel sounds, Non tender Skin : Warm, Dry skin Extremities:? no erythema or swelling noted, chronic deformity to left ankle and foot Neurological : Alert & oriented to self and place, not moving lower extremity use much weaker on the left side Objective Data Active Medications Acetaminophen (Acetaminophen 325 Mg Tablet) 650 mg PO Q6H PRN PRN Reason: Pain, Mild (Pain Scale 1-3) Last Admin: 04/18/22 06:38 Dose: 650 mg Documented By: CHARI Artificial Tears (Artificial Tears 15 Ml Drops) 1 drop EYE-BOTH Q4H PRN PRN Reason: Dry Eyes Bumetanide (Bumetanide 1 Mg Tablet) 1 mg PO DAILY [facility]; Protocol Last Admin: 04/19/22 08:46 Dose: 1 mg Documented By: JOSE LUIS Escitalopram Oxalate (Escitalopram Oxalate 10 Mg Tablet) 10 mg PO DAILY [facility] Last Admin: 04/19/22 08:46 Dose: 10 mg Documented By: JOSE LUIS Gabapentin (Gabapentin 100 Mg Capsule) 200 mg PO BID [facility] Last Admin: 04/19/22 21:05 Dose: 200 mg Documented By: MEKHI Lidocaine (Lidocaine 4 % Patch Adh..Patch) 1 patch TRANSDERMA DAILY [facility]; Protocol Last Admin: 04/19/22 08:50 Dose: Not Given Documented By: JOSE LUIS Non-Admin Reason: Patient Refused Metoprolol Tartrate (Metoprolol Tartrate 12.5 Mg Halftab) 12.5 mg PO BID [facility]; Protocol Last Admin: 04/19/22 20:36 Dose: 12.5 mg Documented By: MEKHI Nystatin (Nystatin Powder 15 Gm Bottle) 1 appl TOPICAL TID [facility]; Protocol Last Admin: 04/19/22 21:05 Dose: 1 appl Documented By: MEKHI Ondansetron HCl (Ondansetron Odt 4 Mg Tab.Rapdis) 4 mg TRANSLINGU Q6H PRN PRN Reason: Nausea and Vomiting Last Admin: 04/03/22 04:51 Dose: 4 mg Documented By: DANE Oxycodone HCl (Oxycodone Hcl Immed Release 5 Mg Tablet) 2.5 mg PO Q6H PRN PRN Reason: Pain, Moderate (Pain Scale 4-6 Last Admin: 04/20/22 00:03 Dose: 2.5 mg Documented By: MEKHI Oxycodone HCl (Oxycodone Hcl Immed Release 5 Mg Tablet) 2.5 mg PO Q6H PRN PRN Reason: Pain, Moderate (Pain Scale 4-6 Pharmacy Consult (Consult Rx Perform Med Rec) 1 each MISCELLANE ONCE PRN PRN Reason: Consult order Polyethylene Glycol (Polyethylene Glycol 3350 17 Gm Powd.Pack) 17 gm PO DAILY PRN PRN Reason: constipation Last Admin: 04/14/22 09:23 Dose: 17 gm Documented By: MILLIE Polyethylene Glycol (Polyethylene Glycol 3350 17 Gm Powd.Pack) 17 gm PO DAILY PRN PRN Reason: Constipation Quetiapine Fumarate (Quetiapine Fumarate 25 Mg Tablet) 12.5 mg PO BID PRN PRN Reason: anxiety, agitation Last Admin: 04/20/22 00:02 Dose: 12.5 mg Documented By: MEKHI Warfarin Sodium (Warfarin Sodium 3 Mg Tablet) 3 mg PO DAILY@1800 [facility] Last Admin: 04/19/22 16:59 Dose: 3 mg Documented By: JOSE LUIS Labs CBC & Chem 7: 04/17/22 05:13 04/17/22 05:13 Labs: Laboratory Results - last 24 hr 04/20/22 06:05 PT 25.5 H INR 2.2 H Assessment and Plan (1) Chronic heart failure: Status: Acute (2) Psoriatic arthritis: Status: Acute Plan 81yo F with AF (persistent?) + HFpEF, initially was awaiting for LTC placement but became hypotensive and had positive UA concerning for infection, though ultimately grew coag-neg staph from urine and blood determined to be contaminant ankle pain increase gabapentin to 200 mg b.i.d. Oxycodone 2.5 mg q.i.d. as needed UTI finished antibiotic course hypotension Seems asymptomatic, chronically? solved looking back Likely related to decrease body tune and being on beta-tony and?diuretics Chronic AFib Rate controlled on beta blockade Continue warfarin PT/ INR daily Chronic HFpEF Not in exacerbation Bumex dose decreased to 1 mg daily from 3 mg b.i.d. at home continue current therapies Psoriatic arthritis Pain medication as needed adjust as indicated left eye subconjuctval haemorrage asymptomatic, resolved VTE ppx warfarin inpatient need: pending LTC placement, safe disposition Quality Stroke Does the patient have a stroke diagnosis?: No VTE Prior VTE?: No VTE Risk Level:: Medical - moderate - high VTE Device Contraindication: Treatment Not Indicated VTE Drug Contraindication: Treatment Not Indicated
[2022-04-20] MEDS: Bumetanide 1 MG TABLET PO (09:18)
[2022-04-20] MEDS: Gabapentin 100 MG CAPSULE 200 MG PO ×2 (09:18→19:22)
[2022-04-20] MEDS: Escitalopram Oxalate 10 MG TABLET PO (09:18)
[2022-04-20] MEDS: Nystatin Powder 15 GM BOTTLE 1 APPL TOPICAL ×2 (09:22→19:24)
[2022-04-20] MEDS: Metoprolol Tartrate 12.5 MG HALFTAB PO ×2 (09:44→19:22)
[2022-04-20 11:39] VITALS: BP 106/57; PULSE 76; RESP 18; TEMP 36; O2SAT 100
[2022-04-20 15:42] VITALS: BP 117/56; PULSE 70; RESP 16; TEMP 36.3; O2SAT 94
[2022-04-20] MEDS: Warfarin Sodium 3 MG TABLET PO (17:08)
[2022-04-20 19:20] VITALS: BP 102/69; PULSE 72; RESP 17; TEMP 36.5; O2SAT 90
[2022-04-20] MEDS: Acetaminophen 325 MG TABLET 650 MG PO (19:22)
[2022-04-21] VITALS (7 sets, daily range): BP systolic 99–118; BP diastolic 50–70; PULSE 63–87; RESP 16–20; TEMP 36.1–36.9; O2SAT 94–100
[2022-04-21] MEDS: oxyCODONE HCl Immed Release 5 MG TABLET 2.5 MG PO ×2 (02:22→18:17)
[2022-04-21 05:53] LABS: INTERNATIONAL NORM RATIO 2.7 (0.9-1.1); Prothrombin Time 32.8 SEC (10.0-13.1)
[2022-04-21] MEDS: Acetaminophen 325 MG TABLET 650 MG PO ×2 (05:58→23:22)
--- NOTE | 2022-04-21 08:41 | P.PNIM_ITS ---
Subjective Subjective Date of Service: 04/21/22 Interval History: the patient was seen and evaluated this morning Laying? in bed, feels comfortable No reported other overnight events. Systemic review: No fever, chills or weakness No chest pain, palpitation No shortness of breath or coughing No abdominal pain, nausea or vomiting No urinary symptoms No any rash or wounds Physical Exam Vital Signs: Vital Signs: Last Vital Signs Temp 97.6 F 04/21/22 07:40 Pulse 63 04/21/22 07:40 Resp 20 04/21/22 07:40 BP 118/60 04/21/22 07:40 Pulse Ox 98 04/21/22 07:40 O2 Del Method 04/21/22 07:40 O2 Flow Rate 1 04/21/22 07:40 FiO2 99 02/22/22 03:47 BMI result Body Mass Index 28.9 Const: Other: Constitutional : Alert, interactive, not in distress Neck : Normal inspection, Supple Cardiovascular : RRR, no JVP, no lower extremity edema Respiratory : fair bilateral air entry,? no crackles, wheezes or rhonchi, on room air Gastrointestinal:? soft, lax, Normal bowel sounds, Non tender Skin : Warm, Dry skin Extremities:? no erythema or swelling noted, chronic deformity to left ankle and foot Neurological : Alert & oriented to self and place, not moving lower extremity use much weaker on the left side Objective Data Active Medications Acetaminophen (Acetaminophen 325 Mg Tablet) 650 mg PO Q6H PRN PRN Reason: Pain, Mild (Pain Scale 1-3) Last Admin: 04/21/22 05:58 Dose: 650 mg Documented By: ERICKSON Artificial Tears (Artificial Tears 15 Ml Drops) 1 drop EYE-BOTH Q4H PRN PRN Reason: Dry Eyes Bumetanide (Bumetanide 1 Mg Tablet) 1 mg PO DAILY [facility]; Protocol Last Admin: 04/20/22 09:18 Dose: 1 mg Documented By: JOSE LUIS Escitalopram Oxalate (Escitalopram Oxalate 10 Mg Tablet) 10 mg PO DAILY [facility] Last Admin: 04/20/22 09:18 Dose: 10 mg Documented By: JOSE LUIS Gabapentin (Gabapentin 100 Mg Capsule) 200 mg PO BID [facility] Last Admin: 04/20/22 19:22 Dose: 200 mg Documented By: ERICKSON Lidocaine (Lidocaine 4 % Patch Adh..Patch) 1 patch TRANSDERMA DAILY [facility]; Protocol Last Admin: 04/20/22 09:23 Dose: Not Given Documented By: JOSE LUIS Non-Admin Reason: Patient Refused Metoprolol Tartrate (Metoprolol Tartrate 12.5 Mg Halftab) 12.5 mg PO BID [facility]; Protocol Last Admin: 04/20/22 19:22 Dose: 12.5 mg Documented By: ERICKSON Comments: pt is awake now Nystatin (Nystatin Powder 15 Gm Bottle) 1 appl TOPICAL TID [facility]; Protocol Last Admin: 04/20/22 19:24 Dose: 1 appl Documented By: ERICKSON Ondansetron HCl (Ondansetron Odt 4 Mg Tab.Rapdis) 4 mg TRANSLINGU Q6H PRN PRN Reason: Nausea and Vomiting Last Admin: 04/03/22 04:51 Dose: 4 mg Documented By: DANE Oxycodone HCl (Oxycodone Hcl Immed Release 5 Mg Tablet) 2.5 mg PO Q6H PRN PRN Reason: Pain, Moderate (Pain Scale 4-6 Last Admin: 04/21/22 02:22 Dose: 2.5 mg Documented By: ERICKSON Oxycodone HCl (Oxycodone Hcl Immed Release 5 Mg Tablet) 2.5 mg PO Q6H PRN PRN Reason: Pain, Moderate (Pain Scale 4-6 Pharmacy Consult (Consult Rx Perform Med Rec) 1 each MISCELLANE ONCE PRN PRN Reason: Consult order Polyethylene Glycol (Polyethylene Glycol 3350 17 Gm Powd.Pack) 17 gm PO DAILY PRN PRN Reason: constipation Last Admin: 04/14/22 09:23 Dose: 17 gm Documented By: MILLIE Polyethylene Glycol (Polyethylene Glycol 3350 17 Gm Powd.Pack) 17 gm PO DAILY PRN PRN Reason: Constipation Quetiapine Fumarate (Quetiapine Fumarate 25 Mg Tablet) 12.5 mg PO BID PRN PRN Reason: anxiety, agitation Last Admin: 04/20/22 00:02 Dose: 12.5 mg Documented By: MEKHI Warfarin Sodium (Warfarin Sodium 3 Mg Tablet) 3 mg PO DAILY@1800 NORM Last Admin: 04/20/22 17:08 Dose: 3 mg Documented By: JOSE LUIS Labs CBC & Chem 7: 04/17/22 05:13 04/17/22 05:13 Labs: Laboratory Results - last 24 hr 04/21/22 05:19 PT 32.8 H INR 2.7 H Assessment and Plan (1) Chronic heart failure: Status: Acute (2) Psoriatic arthritis: Status: Acute Plan 81yo F with AF (persistent?) + HFpEF, initially was awaiting for LTC placement but became hypotensive and had positive UA concerning for infection, though ultimately grew coag-neg staph from urine and blood determined to be contaminant ankle pain increase gabapentin to 200 mg b.i.d. Oxycodone 2.5 mg q.i.d. as needed UTI finished antibiotic course hypotension Seems asymptomatic, chronically? solved looking back Likely related to decrease body tune and being on beta-tony and?diuretics Chronic AFib Rate controlled on beta blockade Continue warfarin PT/ INR daily Chronic HFpEF Not in exacerbation Bumex dose decreased to 1 mg daily from 3 mg b.i.d. at home continue current therapies Psoriatic arthritis Pain medication as needed adjust as indicated left eye subconjuctval haemorrage asymptomatic, resolved VTE ppx warfarin inpatient need: pending LTC placement, safe disposition Quality Stroke Does the patient have a stroke diagnosis?: No VTE Prior VTE?: No VTE Risk Level:: Medical - moderate - high VTE Device Contraindication: Treatment Not Indicated VTE Drug Contraindication: Treatment Not Indicated
[2022-04-21] MEDS: Bumetanide 1 MG TABLET PO (10:22)
[2022-04-21] MEDS: Metoprolol Tartrate 12.5 MG HALFTAB PO (10:22)
[2022-04-21] MEDS: Lidocaine 4 % Patch ADH..PATCH 1 PATCH TRANSDERMA (10:23)
[2022-04-21] MEDS: Gabapentin 100 MG CAPSULE 200 MG PO ×2 (10:23→19:24)
[2022-04-21] MEDS: Escitalopram Oxalate 10 MG TABLET PO (10:23)
[2022-04-21] MEDS: Nystatin Powder 15 GM BOTTLE 1 APPL TOPICAL ×2 (14:47→19:26)
--- NOTE | 2022-04-21 16:21 | MHC.CM.PN ---
EMR REVIEWED, PT REMAINS MEDICALLY STABLE FOR D/C HOWEVER FS STILL AWAITING FAMILY TO BRING IN BANK STATEMENTS, PT'S SON HERI REPORTED HE IS HAVING DIFFICULTY GETTING BANK STATEMENTS ON THURSDAY AND NEVER CALLED TO RESCHEDULE MTG W/PT AND NOTAR PUBLIC FROM MISSED APPT LAST WEEK. CM WILL FOLLOW UP IN AM. PT WILL NOT BE PLACEABLE UNTIL [facility] IS AT LEAST PENDING
[2022-04-21] MEDS: Warfarin Sodium 3 MG TABLET PO (18:14)
[2022-04-21] MEDS: QUEtiapine Fumarate 25 MG TABLET 12.5 MG PO (19:23)
[2022-04-22] MEDS: oxyCODONE HCl Immed Release 5 MG TABLET 2.5 MG PO ×3 (01:13→19:30)
[2022-04-22 05:54] LABS: INTERNATIONAL NORM RATIO 3.4 (0.9-1.1); Prothrombin Time 40.7 SEC (10.0-13.1)
[2022-04-22 07:37] VITALS: BP 108/53; PULSE 81; RESP 17; TEMP 36.3; O2SAT 99
[2022-04-22] MEDS: Bumetanide 1 MG TABLET PO (08:19)
[2022-04-22] MEDS: Escitalopram Oxalate 10 MG TABLET PO (08:19)
[2022-04-22] MEDS: Gabapentin 100 MG CAPSULE 200 MG PO ×2 (08:19→19:17)
[2022-04-22] MEDS: Metoprolol Tartrate 12.5 MG HALFTAB PO (08:20)
[2022-04-22] MEDS: Nystatin Powder 15 GM BOTTLE 1 APPL TOPICAL ×3 (08:21→19:26)
--- NOTE | 2022-04-22 09:14 | P.PNIM_ITS ---
Subjective Subjective Date of Service: 04/22/22 Interval History: the patient was seen and evaluated this morning Laying? in bed, feels comfortable No reported other overnight events. Systemic review: No fever, chills or weakness No chest pain, palpitation No shortness of breath or coughing No abdominal pain, nausea or vomiting No urinary symptoms No any rash or wounds Physical Exam Vital Signs: Vital Signs: Last Vital Signs Temp 97.4 F 04/22/22 07:37 Pulse 81 04/22/22 07:37 Resp 17 04/22/22 07:37 BP 108/53 L 04/22/22 07:37 Pulse Ox 99 04/22/22 07:37 O2 Del Method 04/22/22 07:37 O2 Flow Rate 1.0 04/22/22 07:37 FiO2 99 02/22/22 03:47 BMI result Body Mass Index 28.9 Const: Other: Constitutional : Alert, interactive, not in distress Neck : Normal inspection, Supple Cardiovascular : RRR, no JVP, no lower extremity edema Respiratory : fair bilateral air entry,? no crackles, wheezes or rhonchi, on room air Gastrointestinal:? soft, lax, Normal bowel sounds, Non tender Skin : Warm, Dry skin Extremities:? no erythema or swelling noted, chronic deformity to left ankle and foot Neurological : Alert & oriented to self and place, not moving lower extremity use much weaker on the left side Objective Data Active Medications Acetaminophen (Acetaminophen 325 Mg Tablet) 650 mg PO Q6H PRN PRN Reason: Pain, Mild (Pain Scale 1-3) Last Admin: 04/21/22 23:22 Dose: 650 mg Documented By: AB Artificial Tears (Artificial Tears 15 Ml Drops) 1 drop EYE-BOTH Q4H PRN PRN Reason: Dry Eyes Bumetanide (Bumetanide 1 Mg Tablet) 1 mg PO DAILY [facility]; Protocol Last Admin: 04/22/22 08:19 Dose: 1 mg Documented By: MILLIE Escitalopram Oxalate (Escitalopram Oxalate 10 Mg Tablet) 10 mg PO DAILY [facility] Last Admin: 04/22/22 08:19 Dose: 10 mg Documented By: MILLIE Gabapentin (Gabapentin 100 Mg Capsule) 200 mg PO BID [facility] Last Admin: 04/22/22 08:19 Dose: 200 mg Documented By: MILLIE Lidocaine (Lidocaine 4 % Patch Adh..Patch) 1 patch TRANSDERMA DAILY [facility]; Protocol Last Admin: 04/22/22 08:23 Dose: Not Given Documented By: MILLIE Non-Admin Reason: Patient Refused Metoprolol Tartrate (Metoprolol Tartrate 12.5 Mg Halftab) 12.5 mg PO BID [facility]; Protocol Last Admin: 04/22/22 08:20 Dose: 12.5 mg Documented By: MILLIE Nystatin (Nystatin Powder 15 Gm Bottle) 1 appl TOPICAL TID [facility]; Protocol Last Admin: 04/22/22 08:21 Dose: 1 appl Documented By: MILLIE Ondansetron HCl (Ondansetron Odt 4 Mg Tab.Rapdis) 4 mg TRANSLINGU Q6H PRN PRN Reason: Nausea and Vomiting Last Admin: 04/03/22 04:51 Dose: 4 mg Documented By: DANE Oxycodone HCl (Oxycodone Hcl Immed Release 5 Mg Tablet) 2.5 mg PO Q6H PRN PRN Reason: Pain, Moderate (Pain Scale 4-6 Last Admin: 04/22/22 01:13 Dose: 2.5 mg Documented By: BA Oxycodone HCl (Oxycodone Hcl Immed Release 5 Mg Tablet) 2.5 mg PO Q6H PRN PRN Reason: Pain, Moderate (Pain Scale 4-6 Pharmacy Consult (Consult Rx Perform Med Rec) 1 each MISCELLANE ONCE PRN PRN Reason: Consult order Polyethylene Glycol (Polyethylene Glycol 3350 17 Gm Powd.Pack) 17 gm PO DAILY PRN PRN Reason: constipation Last Admin: 04/14/22 09:23 Dose: 17 gm Documented By: MILLIE Polyethylene Glycol (Polyethylene Glycol 3350 17 Gm Powd.Pack) 17 gm PO DAILY PRN PRN Reason: Constipation Quetiapine Fumarate (Quetiapine Fumarate 25 Mg Tablet) 12.5 mg PO BID PRN PRN Reason: anxiety, agitation Last Admin: 04/21/22 19:23 Dose: 12.5 mg Documented By: BA Warfarin Sodium (Warfarin Sodium 3 Mg Tablet) 3 mg PO DAILY@1800 NORM Last Admin: 04/21/22 18:14 Dose: 3 mg Documented By: MILLIE Labs CBC & Chem 7: 04/17/22 05:13 04/17/22 05:13 Labs: Laboratory Results - last 24 hr 04/22/22 05:20 PT 40.7 H INR 3.4 H Assessment and Plan (1) Chronic heart failure: Status: Acute (2) Psoriatic arthritis: Status: Acute Plan 81yo F with AF (persistent?) + HFpEF, initially was awaiting for LTC placement but became hypotensive and had positive UA concerning for infection, though ultimately grew coag-neg staph from urine and blood determined to be contaminant ankle pain increase gabapentin to 200 mg b.i.d. Oxycodone 2.5 mg q.i.d. as needed UTI finished antibiotic course hypotension Seems asymptomatic, chronically? solved looking back Likely related to decrease body tune and being on beta-tony and?diuretics Chronic AFib Rate controlled on beta blockade Continue warfarin PT/ INR daily Chronic HFpEF Not in exacerbation Bumex dose decreased to 1 mg daily from 3 mg b.i.d. at home continue current therapies Psoriatic arthritis Pain medication as needed adjust as indicated left eye subconjuctval haemorrage asymptomatic, resolved VTE ppx warfarin inpatient need: pending LTC placement, safe disposition Quality Stroke Does the patient have a stroke diagnosis?: No VTE Prior VTE?: No VTE Risk Level:: Medical - moderate - high VTE Device Contraindication: Treatment Not Indicated VTE Drug Contraindication: Treatment Not Indicated
[2022-04-22 12:00] VITALS: BP 104/58; PULSE 79; RESP 16; TEMP 36.6; O2SAT 99
[2022-04-22 15:14] VITALS: BP 98/56; PULSE 76; RESP 16; TEMP 36.9; O2SAT 98
[2022-04-22 18:57] VITALS: BP 102/57; PULSE 90; RESP 16; TEMP 37; O2SAT 97
[2022-04-22] MEDS: Acetaminophen 325 MG TABLET 650 MG PO (19:24)
[2022-04-23] VITALS: BP 100/44; PULSE 60; RESP 16; TEMP 36.3; O2SAT 96
[2022-04-23] MEDS: Acetaminophen 325 MG TABLET 650 MG PO ×3 (01:24→20:35)
[2022-04-23] MEDS: oxyCODONE HCl Immed Release 5 MG TABLET 2.5 MG PO ×4 (01:25→23:01)
[2022-04-23 06:35] LABS: Prothrombin Time 36.5 SEC (10.0-13.1)
[2022-04-23 07:34] VITALS: BP 117/69; PULSE 68; RESP 18; TEMP 36.2; O2SAT 96
[2022-04-23] MEDS: Bumetanide 1 MG TABLET PO (09:50)
[2022-04-23] MEDS: Metoprolol Tartrate 12.5 MG HALFTAB PO (09:50)
[2022-04-23] MEDS: Escitalopram Oxalate 10 MG TABLET PO (09:50)
[2022-04-23] MEDS: Nystatin Powder 15 GM BOTTLE 1 APPL TOPICAL ×3 (09:51→20:36)
[2022-04-23] MEDS: Gabapentin 100 MG CAPSULE 200 MG PO ×2 (09:51→20:35)
--- NOTE | 2022-04-23 10:26 | MHC.CLN ---
F/U DIET=CARDIAC. SUPPLEMENT ENSURE BID PROVIDES ADDITIONAL 700 KCALS, 40 G PROTEIN. SKIN WITH REDNESS TO BUTTOCKS. SUPPLEMENT APPROPRIATE TO PROMOTE SKIN INTEGRITY. INTAKE APPEARS GOOD WITH MOST MEALS 100%. CONTINUE TO FOLLOW FOR INTAKE AND SKIN INTEGRITY. RD TO FOLLOW WEEKLY.
--- NOTE | 2022-04-23 10:43 | HO.PM.IMPN ---
Subjective Subjective Date of Service: 04/23/22 Interval History: the patient was seen and evaluated this morning Laying? in bed, feels comfortable but still complaining of ankle pain left leg No reported other overnight events. Systemic review: No fever, chills or weakness No chest pain, palpitation No shortness of breath or coughing No abdominal pain, nausea or vomiting No urinary symptoms No rash Physical Exam Vital Signs: Vital Signs: Last Vital Signs Temp 97.2 F 04/23/22 07:34 Pulse 68 04/23/22 07:34 Resp 18 04/23/22 07:34 BP 117/69 04/23/22 07:34 Pulse Ox 96 04/23/22 07:34 O2 Del Method 04/23/22 07:34 O2 Flow Rate 1 04/23/22 07:34 FiO2 99 02/22/22 03:47 BMI result Body Mass Index 28.9 Const: Other: Constitutional : Alert, interactive, not in distress Neck : Normal inspection, Supple Cardiovascular : RRR, no JVP, no lower extremity edema Respiratory : fair bilateral air entry,? no crackles, wheezes or rhonchi, on room air Gastrointestinal:? soft, lax, Normal bowel sounds, Non tender Skin : Warm, Dry skin Extremities:? no erythema or swelling noted, chronic deformity to left ankle and foot Neurological : Alert & oriented to self and place, not moving lower extremity use much weaker on the left side Objective Data Active Medications Acetaminophen (Acetaminophen 325 Mg Tablet) 650 mg PO Q6H PRN PRN Reason: Pain, Mild (Pain Scale 1-3) Last Admin: 04/23/22 01:24 Dose: 650 mg Documented By: BA Artificial Tears (Artificial Tears 15 Ml Drops) 1 drop EYE-BOTH Q4H PRN PRN Reason: Dry Eyes Bumetanide (Bumetanide 1 Mg Tablet) 1 mg PO DAILY [facility]; Protocol Last Admin: 04/23/22 09:50 Dose: 1 mg Documented By: VALDEZ Escitalopram Oxalate (Escitalopram Oxalate 10 Mg Tablet) 10 mg PO DAILY [facility] Last Admin: 04/23/22 09:50 Dose: 10 mg Documented By: VALDEZ Gabapentin (Gabapentin 100 Mg Capsule) 200 mg PO BID [facility] Last Admin: 04/23/22 09:51 Dose: 200 mg Documented By: VALDEZ Lidocaine (Lidocaine 4 % Patch Adh..Patch) 1 patch TRANSDERMA DAILY [facility]; Protocol Last Admin: 04/23/22 09:51 Dose: Not Given Documented By: VALDEZ Non-Admin Reason: Patient Refused Metoprolol Tartrate (Metoprolol Tartrate 12.5 Mg Halftab) 12.5 mg PO BID [facility]; Protocol Last Admin: 04/23/22 09:50 Dose: 12.5 mg Documented By: VALDEZ Nystatin (Nystatin Powder 15 Gm Bottle) 1 appl TOPICAL TID [facility]; Protocol Last Admin: 04/23/22 09:51 Dose: 1 appl Documented By: VALDEZ Ondansetron HCl (Ondansetron Odt 4 Mg Tab.Rapdis) 4 mg TRANSLINGU Q6H PRN PRN Reason: Nausea and Vomiting Last Admin: 04/03/22 04:51 Dose: 4 mg Documented By: DANE Oxycodone HCl (Oxycodone Hcl Immed Release 5 Mg Tablet) 2.5 mg PO Q6H PRN PRN Reason: Pain, Moderate (Pain Scale 4-6 Last Admin: 04/23/22 09:49 Dose: 2.5 mg Documented By: VALDEZ Oxycodone HCl (Oxycodone Hcl Immed Release 5 Mg Tablet) 2.5 mg PO Q6H PRN PRN Reason: Pain, Moderate (Pain Scale 4-6 Pharmacy Consult (Consult Rx Perform Med Rec) 1 each MISCELLANE ONCE PRN PRN Reason: Consult order Polyethylene Glycol (Polyethylene Glycol 3350 17 Gm Powd.Pack) 17 gm PO DAILY PRN PRN Reason: constipation Last Admin: 04/14/22 09:23 Dose: 17 gm Documented By: MILLIE Polyethylene Glycol (Polyethylene Glycol 3350 17 Gm Powd.Pack) 17 gm PO DAILY PRN PRN Reason: Constipation Quetiapine Fumarate (Quetiapine Fumarate 25 Mg Tablet) 12.5 mg PO BID PRN PRN Reason: anxiety, agitation Last Admin: 04/21/22 19:23 Dose: 12.5 mg Documented By: BA Warfarin Sodium (Warfarin Sodium 3 Mg Tablet) 3 mg PO DAILY@1800 NORM Last Admin: 04/21/22 18:14 Dose: 3 mg Documented By: MILLIE Labs CBC & Chem 7: 04/17/22 05:13 10/13/22 05:13 Labs: Laboratory Results - last 24 hr 04/23/22 05:49 PT 36.5 H INR 3.0 H Assessment and Plan (1) Psoriatic arthritis: Status: Acute (2) Chronic heart failure: Status: Acute (3) Chronic atrial fibrillation: Status: Acute Plan 81yo F with AF (persistent?) + HFpEF, initially was awaiting for LTC placement but became hypotensive and had positive UA concerning for infection, though ultimately grew coag-neg staph from urine and blood determined to be contaminant ankle pain increase gabapentin to 200 mg b.i.d. Oxycodone 2.5 mg q.i.d. as needed UTI finished antibiotic course hypotension asymptomatic, chronic Likely related to decrease body tune and being on beta-tony and?diuretics Chronic AFib Rate controlled on beta blockade Continue warfarin PT/ INR daily Chronic HFpEF Not in exacerbation Bumex dose decreased to 1 mg daily from 3 mg b.i.d. at home continue current therapies Psoriatic arthritis Pain medication as needed adjust as indicated left eye subconjuctval haemorrage asymptomatic, resolved VTE ppx warfarin inpatient need: pending LTC placement, safe disposition Quality Stroke Does the patient have a stroke diagnosis?: No VTE Prior VTE?: No VTE Risk Level:: Medical - moderate - high VTE Device Contraindication: Treatment Not Indicated VTE Drug Contraindication: Treatment Not Indicated
[2022-04-23 11:18] VITALS: BP 112/65; PULSE 67; RESP 16; TEMP 36.1; O2SAT 95
[2022-04-23 15:28] VITALS: BP 116/73; PULSE 91; RESP 16; TEMP 36.9; O2SAT 96
[2022-04-23 19:15] VITALS: BP 99/55; PULSE 90; RESP 16; TEMP 36.4; O2SAT 97
[2022-04-24] VITALS (7 sets, daily range): BP systolic 92–125; BP diastolic 50–73; PULSE 67–86; RESP 16–18; TEMP 36.1–37.1; O2SAT 94–97
[2022-04-24] MEDS: oxyCODONE HCl Immed Release 5 MG TABLET 2.5 MG PO ×3 (04:46→19:12)
[2022-04-24 05:56] LABS: INTERNATIONAL NORM RATIO 2.1 (0.9-1.1); Prothrombin Time 24.6 SEC (10.0-13.1)
[2022-04-24] MEDS: Bumetanide 1 MG TABLET PO (09:14)
[2022-04-24] MEDS: Escitalopram Oxalate 10 MG TABLET PO (09:14)
[2022-04-24] MEDS: Acetaminophen 325 MG TABLET 650 MG PO ×2 (09:14→19:12)
[2022-04-24] MEDS: Gabapentin 100 MG CAPSULE 200 MG PO ×2 (09:14→20:08)
[2022-04-24] MEDS: Metoprolol Tartrate 12.5 MG HALFTAB PO ×2 (09:14→20:08)
[2022-04-24] MEDS: Lidocaine 4 % Patch ADH..PATCH 1 PATCH TRANSDERMA (09:15)
[2022-04-24] MEDS: Nystatin Powder 15 GM BOTTLE 1 APPL TOPICAL ×3 (09:16→20:17)
--- NOTE | 2022-04-24 09:39 | P.PNIM_ITS ---
Subjective Subjective Date of Service: 04/24/22 Interval History: the patient was seen and evaluated this morning Laying? in bed, sleepy but reports feeling ok ankle pain No reported other overnight events. Systemic review: No fever, chills or weakness No chest pain, palpitation No shortness of breath or coughing No abdominal pain, nausea or vomiting No urinary symptoms No rash Physical Exam Vital Signs: Vital Signs: Last Vital Signs Temp 96.9 F 04/24/22 07:34 Pulse 73 04/24/22 07:34 Resp 16 04/24/22 07:34 BP 125/73 04/24/22 07:34 Pulse Ox 95 04/24/22 07:34 O2 Del Method 04/24/22 07:34 O2 Flow Rate 1 04/24/22 07:34 FiO2 99 02/22/22 03:47 BMI result Body Mass Index 28.9 Const: Other: Constitutional : Alert, interactive, not in distress Neck : Normal inspection, Supple Cardiovascular : RRR, no JVP, no lower extremity edema Respiratory : fair bilateral air entry,? no crackles, wheezes or rhonchi, on room air Gastrointestinal:? soft, lax, Normal bowel sounds, Non tender Skin : Warm, Dry skin Extremities:? no erythema or swelling noted, chronic deformity to left ankle and foot Neurological : Alert & oriented to self and place, weaker on the left lower extremity Objective Data Active Medications Acetaminophen (Acetaminophen 325 Mg Tablet) 650 mg PO Q6H PRN PRN Reason: Pain, Mild (Pain Scale 1-3) Last Admin: 04/24/22 09:14 Dose: 650 mg Documented By: CELESTINE Artificial Tears (Artificial Tears 15 Ml Drops) 1 drop EYE-BOTH Q4H PRN PRN Reason: Dry Eyes Bumetanide (Bumetanide 1 Mg Tablet) 1 mg PO DAILY [facility]; Protocol Last Admin: 04/24/22 09:14 Dose: 1 mg Documented By: CELESTINE Escitalopram Oxalate (Escitalopram Oxalate 10 Mg Tablet) 10 mg PO DAILY [facility] Last Admin: 04/24/22 09:14 Dose: 10 mg Documented By: CELESTINE Gabapentin (Gabapentin 100 Mg Capsule) 200 mg PO BID [facility] Last Admin: 04/24/22 09:14 Dose: 200 mg Documented By: CELESTINE Lidocaine (Lidocaine 4 % Patch Adh..Patch) 1 patch TRANSDERMA DAILY [facility]; Protocol Last Admin: 04/24/22 09:15 Dose: 1 patch Documented By: CELESTINE Metoprolol Tartrate (Metoprolol Tartrate 12.5 Mg Halftab) 12.5 mg PO BID [facility]; Protocol Last Admin: 04/24/22 09:14 Dose: 12.5 mg Documented By: CELESTINE Nystatin (Nystatin Powder 15 Gm Bottle) 1 appl TOPICAL TID [facility]; Protocol Last Admin: 04/24/22 09:16 Dose: 1 appl Documented By: CELESTINE Ondansetron HCl (Ondansetron Odt 4 Mg Tab.Rapdis) 4 mg TRANSLINGU Q6H PRN PRN Reason: Nausea and Vomiting Last Admin: 04/03/22 04:51 Dose: 4 mg Documented By: DANE Oxycodone HCl (Oxycodone Hcl Immed Release 5 Mg Tablet) 2.5 mg PO Q6H PRN PRN Reason: Pain, Moderate (Pain Scale 4-6 Last Admin: 04/24/22 04:46 Dose: 2.5 mg Documented By: ALLIE Oxycodone HCl (Oxycodone Hcl Immed Release 5 Mg Tablet) 2.5 mg PO Q6H PRN PRN Reason: Pain, Moderate (Pain Scale 4-6 Pharmacy Consult (Consult Rx Perform Med Rec) 1 each MISCELLANE ONCE PRN PRN Reason: Consult order Polyethylene Glycol (Polyethylene Glycol 3350 17 Gm Powd.Pack) 17 gm PO DAILY PRN PRN Reason: constipation Last Admin: 04/14/22 09:23 Dose: 17 gm Documented By: MILLIE Polyethylene Glycol (Polyethylene Glycol 3350 17 Gm Powd.Pack) 17 gm PO DAILY PRN PRN Reason: Constipation Quetiapine Fumarate (Quetiapine Fumarate 25 Mg Tablet) 12.5 mg PO BID PRN PRN Reason: anxiety, agitation Last Admin: 04/21/22 19:23 Dose: 12.5 mg Documented By: BA Warfarin Sodium (Warfarin Sodium 3 Mg Tablet) 3 mg PO DAILY@1800 [facility] Last Admin: 04/21/22 18:14 Dose: 3 mg Documented By: MILLIE Labs CBC & Chem 7: 04/17/22 05:13 04/17/22 05:13 Labs: Laboratory Results - last 24 hr 04/24/22 05:29 PT 24.6 H INR 2.1 H Assessment and Plan (1) Chronic atrial fibrillation: Status: Acute (2) Chronic heart failure: Status: Acute (3) Ankle pain: Status: Acute Plan 81yo F with AF (persistent?) + HFpEF, initially was awaiting for LTC placement but became hypotensive and had positive UA concerning for infection, though ultimately grew coag-neg staph from urine and blood determined to be contaminant ankle pain increase gabapentin to 200 mg b.i.d. Oxycodone 2.5 mg q.i.d. as needed UTI finished antibiotic course hypotension asymptomatic, chronic Likely related to decrease body tune and being on beta-tony and?diuretics Chronic AFib Rate controlled on beta blockade Continue warfarin PT/ INR daily Chronic HFpEF Not in exacerbation Bumex dose decreased to 1 mg daily from 3 mg b.i.d. at home continue current therapies Psoriatic arthritis Pain medication as needed adjust as indicated left eye subconjuctval haemorrage asymptomatic, resolved VTE ppx warfarin inpatient need: pending LTC placement, safe disposition Quality Stroke Does the patient have a stroke diagnosis?: No VTE Prior VTE?: No VTE Risk Level:: Medical - moderate - high VTE Device Contraindication: Treatment Not Indicated VTE Drug Contraindication: Treatment Not Indicated
[2022-04-24] MEDS: Warfarin Sodium 3 MG TABLET PO (18:27)
[2022-04-25] MEDS: Acetaminophen 325 MG TABLET 650 MG PO ×4 (01:31→20:32)
[2022-04-25] MEDS: oxyCODONE HCl Immed Release 5 MG TABLET 2.5 MG PO ×4 (01:31→20:31)
[2022-04-25 05:58] LABS: INTERNATIONAL NORM RATIO 1.7 (0.9-1.1)
[2022-04-25 07:20] VITALS: BP 142/74; PULSE 72; RESP 19; TEMP 36.7; O2SAT 96
[2022-04-25] MEDS: Bumetanide 1 MG TABLET PO (08:06)
[2022-04-25] MEDS: Gabapentin 100 MG CAPSULE 200 MG PO ×2 (08:07→20:32)
[2022-04-25] MEDS: Metoprolol Tartrate 12.5 MG HALFTAB PO ×2 (08:08→20:32)
[2022-04-25] MEDS: Escitalopram Oxalate 10 MG TABLET PO (08:08)
[2022-04-25] MEDS: Lidocaine 4 % Patch ADH..PATCH 1 PATCH TRANSDERMA (08:11)
[2022-04-25 11:05] VITALS: BP 100/58; PULSE 82; RESP 19; TEMP 36.7; O2SAT 97
[2022-04-25] MEDS: polyethylene glycoL 3350 17 GM POWD.PACK PO (13:03)
[2022-04-25] MEDS: Nystatin Powder 15 GM BOTTLE 1 APPL TOPICAL ×2 (13:11→22:11)
--- NOTE | 2022-04-25 14:54 | HO.PM.IMPN ---
Subjective Subjective Date of Service: 04/25/22 Interval History: the patient was seen and evaluated this morning Laying? in bed, complaining of constipation Reporting ankle pain No reported other overnight events. Systemic review: No fever, chills or weakness No chest pain, palpitation No shortness of breath or coughing No abdominal pain, nausea or vomiting No urinary symptoms No rash Physical Exam Vital Signs: Vital Signs: Last Vital Signs Temp 98.1 F 04/25/22 11:05 Pulse 82 04/25/22 11:05 Resp 19 04/25/22 11:05 BP 100/58 L 04/25/22 11:05 Pulse Ox 97 04/25/22 11:05 O2 Del Method 04/25/22 11:05 O2 Flow Rate 2 04/25/22 11:05 FiO2 99 02/22/22 03:47 BMI result Body Mass Index 28.9 Const: Other: Constitutional : Alert, interactive, not in distress Neck : Normal inspection, Supple Cardiovascular : RRR, no JVP, no lower extremity edema Respiratory : fair bilateral air entry,? no crackles, wheezes or rhonchi, on room air Gastrointestinal:? soft, lax, Normal bowel sounds, Non tender Skin : Warm, Dry skin Extremities:? no erythema or swelling noted, chronic deformity to left ankle and foot Neurological : Alert & oriented to self and place, weaker on the left lower extremity Objective Data Active Medications Acetaminophen (Acetaminophen 325 Mg Tablet) 650 mg PO Q6H PRN PRN Reason: Pain, Mild (Pain Scale 1-3) Last Admin: 04/25/22 14:50 Dose: 650 mg Documented By: ELDA Artificial Tears (Artificial Tears 15 Ml Drops) 1 drop EYE-BOTH Q4H PRN PRN Reason: Dry Eyes Bumetanide (Bumetanide 1 Mg Tablet) 1 mg PO DAILY [facility]; Protocol Last Admin: 04/25/22 08:06 Dose: 1 mg Documented By: ELDA Escitalopram Oxalate (Escitalopram Oxalate 10 Mg Tablet) 10 mg PO DAILY [facility] Last Admin: 04/25/22 08:08 Dose: 10 mg Documented By: ELDA Gabapentin (Gabapentin 100 Mg Capsule) 200 mg PO BID [facility] Last Admin: 04/25/22 08:07 Dose: 200 mg Documented By: ELDA Lidocaine (Lidocaine 4 % Patch Adh..Patch) 1 patch TRANSDERMA DAILY [facility]; Protocol Last Admin: 04/25/22 08:11 Dose: 1 patch Documented By: ELDA Metoprolol Tartrate (Metoprolol Tartrate 12.5 Mg Halftab) 12.5 mg PO BID [facility]; Protocol Last Admin: 04/25/22 08:08 Dose: 12.5 mg Documented By: ELDA Nystatin (Nystatin Powder 15 Gm Bottle) 1 appl TOPICAL TID [facility]; Protocol Last Admin: 04/25/22 13:11 Dose: 1 appl Documented By: ELDA Ondansetron HCl (Ondansetron Odt 4 Mg Tab.Rapdis) 4 mg TRANSLINGU Q6H PRN PRN Reason: Nausea and Vomiting Last Admin: 04/03/22 04:51 Dose: 4 mg Documented By: DANE Oxycodone HCl (Oxycodone Hcl Immed Release 5 Mg Tablet) 2.5 mg PO Q6H PRN PRN Reason: Pain, Moderate (Pain Scale 4-6 Last Admin: 04/25/22 14:51 Dose: 2.5 mg Documented By: ELDA Pharmacy Consult (Consult Rx Perform Med Rec) 1 each MISCELLANE ONCE PRN PRN Reason: Consult order Polyethylene Glycol (Polyethylene Glycol 3350 17 Gm Powd.Pack) 17 gm PO DAILY PRN PRN Reason: constipation Last Admin: 04/14/22 09:23 Dose: 17 gm Documented By: MILLIE Polyethylene Glycol (Polyethylene Glycol 3350 17 Gm Powd.Pack) 17 gm PO DAILY PRN PRN Reason: Constipation Polyethylene Glycol (Polyethylene Glycol 3350 17 Gm Powd.Pack) 17 gm PO DAILY [facility] Last Admin: 04/25/22 13:03 Dose: 17 gm Documented By: ELDA Quetiapine Fumarate (Quetiapine Fumarate 25 Mg Tablet) 12.5 mg PO BID PRN PRN Reason: anxiety, agitation Last Admin: 04/21/22 19:23 Dose: 12.5 mg Documented By: BA Warfarin Sodium (Warfarin Sodium 3 Mg Tablet) 3 mg PO DAILY@1800 [facility] Last Admin: 04/24/22 18:27 Dose: 3 mg Documented By: JOSE LUIS Labs CBC & Chem 7: 04/17/22 05:13 04/17/22 05:13 Labs: Laboratory Results - last 24 hr 04/25/22 05:26 PT 20.0 H INR 1.7 H Assessment and Plan (1) Ankle pain: Status: Acute (2) Chronic heart failure: Status: Acute Plan 81yo F with AF (persistent?) + HFpEF, initially was awaiting for LTC placement but became hypotensive and had positive UA concerning for infection, though ultimately grew coag-neg staph from urine and blood determined to be contaminant ankle pain increase gabapentin to 200 mg b.i.d. Oxycodone 2.5 mg q.i.d. as needed MiraLax for constipation UTI finished antibiotic course hypotension asymptomatic, chronic Likely related to decrease body tune and being on beta-tony and?diuretics Chronic AFib Rate controlled on beta blockade Continue warfarin PT/ INR daily Chronic HFpEF Not in exacerbation Bumex dose decreased to 1 mg daily from 3 mg b.i.d. at home continue current therapies Psoriatic arthritis Pain medication as needed adjust as indicated left eye subconjuctval haemorrage asymptomatic, resolved VTE ppx warfarin inpatient need: pending LTC placement, safe disposition Quality Stroke Does the patient have a stroke diagnosis?: No VTE Prior VTE?: No VTE Risk Level:: Medical - moderate - high VTE Device Contraindication: Treatment Not Indicated VTE Drug Contraindication: Treatment Not Indicated
--- NOTE | 2022-04-25 15:39 | MHC.CM.PN ---
EMR REVIEWED, PER FS INITIAL MH MARCOS SENT AND FS SPOKE W/MH REP WHO REPORTS PT WILL BE ASSIGNED A MORTGAGE LOAN SPECIALIST IN THE NEXT FEW DAYS AND FS WILL FOLLOW UP W/MH ON SATURDAY 04/28, FS DID CC CM ON EMIAL TO PT'S SON VIOLETA WHO HAS BEEN TRYING TO OBTAIN BANK STATEMENTS, CM WILL FOLLOW FOR D/C NEEDS.
[2022-04-25 15:48] VITALS: BP 101/71; PULSE 83; RESP 19; TEMP 37.1; O2SAT 95
[2022-04-25] MEDS: Warfarin Sodium 3 MG TABLET PO (17:55)
[2022-04-25 19:36] VITALS: BP 112/54; PULSE 77; RESP 16; TEMP 37; O2SAT 96
[2022-04-25] MEDS: QUEtiapine Fumarate 25 MG TABLET 12.5 MG PO (20:32)
[2022-04-25 23:40] VITALS: BP 106/58; PULSE 83; RESP 16; TEMP 36.3; O2SAT 97
[2022-04-26 02:34] VITALS: PULSE 79; O2SAT 97
[2022-04-26 09:27] VITALS: BP 141/95; PULSE 91; RESP 18; O2SAT 93
[2022-04-26] MEDS: oxyCODONE HCl Immed Release 5 MG TABLET 2.5 MG PO ×3 (10:57→23:26)
[2022-04-26] MEDS: Metoprolol Tartrate 12.5 MG HALFTAB PO ×2 (10:58→21:47)
[2022-04-26] MEDS: Escitalopram Oxalate 10 MG TABLET PO (10:58)
[2022-04-26] MEDS: Lidocaine 4 % Patch ADH..PATCH 1 PATCH TRANSDERMA (10:58)
[2022-04-26] MEDS: Gabapentin 100 MG CAPSULE 200 MG PO ×2 (10:58→21:47)
[2022-04-26] MEDS: polyethylene glycoL 3350 17 GM POWD.PACK PO ×2 (10:58→11:01)
[2022-04-26] MEDS: Bumetanide 1 MG TABLET PO (10:58)
[2022-04-26] MEDS: Nystatin Powder 15 GM BOTTLE 1 APPL TOPICAL ×3 (11:01→21:50)
[2022-04-26 11:48] VITALS: BP 124/61; PULSE 90; RESP 20; TEMP 36.8; O2SAT 92
--- NOTE | 2022-04-26 13:14 | P.PNIM_ITS ---
Subjective Subjective Date of Service: 04/26/22 Interval History: the patient was seen and evaluated this morning Laying? in bed, waking up Reporting ankle pain fluctuates during day and night No reported other overnight events. Systemic review: No fever, chills or weakness No chest pain, palpitation No shortness of breath or coughing No abdominal pain, nausea or vomiting No urinary symptoms No rash Physical Exam Vital Signs: Vital Signs: Last Vital Signs Temp 98.3 F 04/26/22 11:48 Pulse 90 04/26/22 11:48 Resp 20 04/26/22 11:48 BP 124/61 04/26/22 11:48 Pulse Ox 92 04/26/22 11:48 O2 Del Method 04/26/22 11:48 O2 Flow Rate 1 04/26/22 11:48 FiO2 99 02/22/22 03:47 BMI result Body Mass Index 28.9 Const: Other: Constitutional : Alert, interactive, not in distress Neck : Normal inspection, Supple Cardiovascular : RRR, no JVP, no lower extremity edema Respiratory : fair bilateral air entry,? no crackles, wheezes or rhonchi, on room air Gastrointestinal:? soft, lax, Normal bowel sounds, Non tender Skin : Warm, Dry skin Extremities:? no erythema or swelling noted, chronic deformity to left ankle and foot Neurological : Alert & oriented to self and place, weaker on the left lower extremity Objective Data Active Medications Acetaminophen (Acetaminophen 325 Mg Tablet) 650 mg PO Q6H PRN PRN Reason: Pain, Mild (Pain Scale 1-3) Last Admin: 04/25/22 20:32 Dose: 650 mg Documented By: YOVANY Artificial Tears (Artificial Tears 15 Ml Drops) 1 drop EYE-BOTH Q4H PRN PRN Reason: Dry Eyes Bumetanide (Bumetanide 1 Mg Tablet) 1 mg PO DAILY [facility]; Protocol Last Admin: 04/26/22 10:58 Dose: 1 mg Documented By: SIERRA Escitalopram Oxalate (Escitalopram Oxalate 10 Mg Tablet) 10 mg PO DAILY [facility] Last Admin: 04/26/22 10:58 Dose: 10 mg Documented By: SIERRA Gabapentin (Gabapentin 100 Mg Capsule) 200 mg PO BID [facility] Last Admin: 04/26/22 10:58 Dose: 200 mg Documented By: SIERRA Lidocaine (Lidocaine 4 % Patch Adh..Patch) 1 patch TRANSDERMA DAILY [facility]; Protocol Last Admin: 04/26/22 10:58 Dose: 1 patch Documented By: SIERRA Metoprolol Tartrate (Metoprolol Tartrate 12.5 Mg Halftab) 12.5 mg PO BID [facility]; Protocol Last Admin: 04/26/22 10:58 Dose: 12.5 mg Documented By: SIERRA Nystatin (Nystatin Powder 15 Gm Bottle) 1 appl TOPICAL TID [facility]; Protocol Last Admin: 04/26/22 11:01 Dose: 1 appl Documented By: SIERRA Ondansetron HCl (Ondansetron Odt 4 Mg Tab.Rapdis) 4 mg TRANSLINGU Q6H PRN PRN Reason: Nausea and Vomiting Last Admin: 04/03/22 04:51 Dose: 4 mg Documented By: DANE Oxycodone HCl (Oxycodone Hcl Immed Release 5 Mg Tablet) 2.5 mg PO Q6H PRN PRN Reason: Pain, Moderate (Pain Scale 4-6 Last Admin: 04/26/22 10:57 Dose: 2.5 mg Documented By: SIERRA Pharmacy Consult (Consult Rx Perform Med Rec) 1 each MISCELLANE ONCE PRN PRN Reason: Consult order Polyethylene Glycol (Polyethylene Glycol 3350 17 Gm Powd.Pack) 17 gm PO DAILY PRN PRN Reason: constipation Last Admin: 04/26/22 10:58 Dose: 17 gm Documented By: SIERRA Polyethylene Glycol (Polyethylene Glycol 3350 17 Gm Powd.Pack) 17 gm PO DAILY PRN PRN Reason: Constipation Polyethylene Glycol (Polyethylene Glycol 3350 17 Gm Powd.Pack) 17 gm PO DAILY [facility] Last Admin: 04/26/22 11:01 Dose: 17 gm Documented By: SIERRA Quetiapine Fumarate (Quetiapine Fumarate 25 Mg Tablet) 12.5 mg PO BID PRN PRN Reason: anxiety, agitation Last Admin: 04/25/22 20:32 Dose: 12.5 mg Documented By: YOVANY Warfarin Sodium (Warfarin Sodium 3 Mg Tablet) 3 mg PO DAILY@1800 [facility] Last Admin: 04/25/22 17:55 Dose: 3 mg Documented By: JOSE LUIS Labs CBC & Chem 7: 04/17/22 05:13 04/17/22 05:13 Assessment and Plan (1) Ankle pain: Status: Acute Plan 81yo F with AF (persistent?) + HFpEF, initially was awaiting for LTC placement but became hypotensive and had positive UA concerning for infection, though ultimately grew coag-neg staph from urine and blood determined to be contaminant ankle pain increase gabapentin to 200 mg b.i.d. Oxycodone 2.5 mg q.i.d. as needed MiraLax for constipation UTI finished antibiotic course hypotension asymptomatic, chronic Likely related to decrease body tune and being on beta-tony and?diuretics Chronic AFib Rate controlled on beta blockade Continue warfarin PT/ INR daily Chronic HFpEF Not in exacerbation Bumex dose decreased to 1 mg daily from 3 mg b.i.d. at home continue current therapies Psoriatic arthritis Pain medication as needed adjust as indicated left eye subconjuctval haemorrage asymptomatic, resolved VTE ppx warfarin inpatient need: pending LTC placement, safe disposition Quality Stroke Does the patient have a stroke diagnosis?: No VTE Prior VTE?: No VTE Risk Level:: Medical - moderate - high VTE Device Contraindication: Treatment Not Indicated VTE Drug Contraindication: Treatment Not Indicated
[2022-04-26 13:48] LABS: INTERNATIONAL NORM RATIO 1.7 (0.9-1.1); Prothrombin Time 19.7 SEC (10.0-13.1)
[2022-04-26 16:00] VITALS: BP 98/56; PULSE 71; RESP 16; TEMP 36.7; O2SAT 97
[2022-04-26] MEDS: Warfarin Sodium 3 MG TABLET PO (16:32)
[2022-04-26 19:15] VITALS: BP 113/58; PULSE 95; RESP 18; TEMP 36.9; O2SAT 98
[2022-04-26] MEDS: Acetaminophen 325 MG TABLET 650 MG PO (23:36)
[2022-04-27] VITALS: BP 107/64; PULSE 99; RESP 16; TEMP 36.6; O2SAT 96
[2022-04-27 03:17] VITALS: BP 103/58; PULSE 82; RESP 16; TEMP 36.5; O2SAT 98
[2022-04-27 06:28] LABS: INTERNATIONAL NORM RATIO 1.9 (0.9-1.1); Prothrombin Time 21.9 SEC (10.0-13.1)
[2022-04-27 07:04] VITALS: BP 121/64; PULSE 90; RESP 18; TEMP 36.5; O2SAT 97
[2022-04-27] MEDS: oxyCODONE HCl Immed Release 5 MG TABLET 2.5 MG PO ×2 (08:46→21:03)
[2022-04-27] MEDS: Bumetanide 1 MG TABLET PO (08:47)
[2022-04-27] MEDS: Escitalopram Oxalate 10 MG TABLET PO (08:47)
[2022-04-27] MEDS: Lidocaine 4 % Patch ADH..PATCH 1 PATCH TRANSDERMA (08:47)
[2022-04-27] MEDS: Nystatin Powder 15 GM BOTTLE 1 APPL TOPICAL ×2 (08:47→21:14)
[2022-04-27] MEDS: polyethylene glycoL 3350 17 GM POWD.PACK PO (08:47)
[2022-04-27] MEDS: Gabapentin 100 MG CAPSULE 200 MG PO ×2 (08:47→20:59)
[2022-04-27] MEDS: Metoprolol Tartrate 12.5 MG HALFTAB PO ×2 (08:47→20:59)
--- NOTE | 2022-04-27 10:29 | P.PNIM_ITS ---
Subjective Subjective Date of Service: 04/27/22 Interval History: the patient was seen and evaluated this morning Laying? in bed, feels comfortable Reporting ankle pain No reported other overnight events. Systemic review: No fever, chills or weakness No chest pain, palpitation No shortness of breath or coughing No abdominal pain, nausea or vomiting No urinary symptoms No rash Physical Exam Vital Signs: Vital Signs: Last Vital Signs Temp 97.7 F 04/27/22 07:04 Pulse 90 04/27/22 07:04 Resp 18 04/27/22 07:04 BP 121/64 04/27/22 07:04 Pulse Ox 97 04/27/22 07:04 O2 Del Method 04/27/22 07:04 O2 Flow Rate 1 04/27/22 07:04 FiO2 99 02/22/22 03:47 BMI result Body Mass Index 28.9 Const: Other: Constitutional : Alert, interactive, not in distress Neck : Normal inspection, Supple Cardiovascular : RRR, no JVP, no lower extremity edema Respiratory : fair bilateral air entry,? no crackles, wheezes or rhonchi, on room air Gastrointestinal:? soft, lax, Normal bowel sounds, Non tender Skin : Warm, Dry skin Extremities:? no erythema or swelling noted, chronic deformity to left ankle and foot Neurological : Alert & oriented to self and place, weaker on the left lower extremity Objective Data Active Medications Acetaminophen (Acetaminophen 325 Mg Tablet) 650 mg PO Q6H PRN PRN Reason: Pain, Mild (Pain Scale 1-3) Last Admin: 04/26/22 23:36 Dose: 650 mg Documented By: CHELY Artificial Tears (Artificial Tears 15 Ml Drops) 1 drop EYE-BOTH Q4H PRN PRN Reason: Dry Eyes Bumetanide (Bumetanide 1 Mg Tablet) 1 mg PO DAILY [facility]; Protocol Last Admin: 04/27/22 08:47 Dose: 1 mg Documented By: SIERRA Escitalopram Oxalate (Escitalopram Oxalate 10 Mg Tablet) 10 mg PO DAILY [facility] Last Admin: 04/27/22 08:47 Dose: 10 mg Documented By: SIERRA Gabapentin (Gabapentin 100 Mg Capsule) 200 mg PO BID [facility] Last Admin: 04/27/22 08:47 Dose: 200 mg Documented By: SIERRA Lidocaine (Lidocaine 4 % Patch Adh..Patch) 1 patch TRANSDERMA DAILY [facility]; Protocol Last Admin: 04/27/22 08:47 Dose: 1 patch Documented By: SIERRA Metoprolol Tartrate (Metoprolol Tartrate 12.5 Mg Halftab) 12.5 mg PO BID [facility]; Protocol Last Admin: 04/27/22 08:47 Dose: 12.5 mg Documented By: SIERRA Nystatin (Nystatin Powder 15 Gm Bottle) 1 appl TOPICAL TID [facility]; Protocol Last Admin: 04/27/22 08:47 Dose: 1 appl Documented By: SIERRA Ondansetron HCl (Ondansetron Odt 4 Mg Tab.Rapdis) 4 mg TRANSLINGU Q6H PRN PRN Reason: Nausea and Vomiting Last Admin: 04/03/22 04:51 Dose: 4 mg Documented By: DANE Oxycodone HCl (Oxycodone Hcl Immed Release 5 Mg Tablet) 2.5 mg PO Q6H PRN PRN Reason: Pain, Moderate (Pain Scale 4-6 Last Admin: 04/27/22 08:46 Dose: 2.5 mg Documented By: SIERRA Pharmacy Consult (Consult Rx Perform Med Rec) 1 each MISCELLANE ONCE PRN PRN Reason: Consult order Polyethylene Glycol (Polyethylene Glycol 3350 17 Gm Powd.Pack) 17 gm PO DAILY PRN PRN Reason: constipation Last Admin: 04/26/22 10:58 Dose: 17 gm Documented By: SIERRA Polyethylene Glycol (Polyethylene Glycol 3350 17 Gm Powd.Pack) 17 gm PO DAILY PRN PRN Reason: Constipation Polyethylene Glycol (Polyethylene Glycol 3350 17 Gm Powd.Pack) 17 gm PO DAILY [facility] Last Admin: 04/27/22 08:47 Dose: 17 gm Documented By: SIERRA Quetiapine Fumarate (Quetiapine Fumarate 25 Mg Tablet) 12.5 mg PO BID PRN PRN Reason: anxiety, agitation Last Admin: 04/25/22 20:32 Dose: 12.5 mg Documented By: YOVANY Warfarin Sodium (Warfarin Sodium 3 Mg Tablet) 3 mg PO DAILY@1800 [facility] Last Admin: 04/26/22 16:32 Dose: 3 mg Documented By: SIERRA Labs CBC & Chem 7: 04/17/22 05:13 04/17/22 05:13 Labs: Laboratory Results - last 24 hr 04/26/22 04/27/22 13:12 05:50 PT 19.7 H 21.9 H INR 1.7 H 1.9 H Assessment and Plan (1) Ankle pain: Status: Acute (2) Chronic heart failure: Status: Acute Plan 81yo F with AF (persistent?) + HFpEF, initially was awaiting for LTC placement but became hypotensive and had positive UA concerning for infection, though ulti kennyly grew coag-neg staph from urine and blood determined to be contaminant ankle pain increase gabapentin to 200 mg b.i.d. Oxycodone 2.5 mg q.i.d. as needed MiraLax for constipation UTI finished antibiotic course hypotension asymptomatic, chronic Likely related to decrease body tune and being on beta-tony and?diuretics Chronic AFib Rate controlled on beta blockade Continue warfarin PT/ INR daily Chronic HFpEF Not in exacerbation Bumex dose decreased to 1 mg daily from 3 mg b.i.d. at home continue current therapies Psoriatic arthritis Pain medication as needed adjust as indicated left eye subconjuctval haemorrage asymptomatic, resolved VTE ppx warfarin inpatient need: pending LTC placement, safe disposition Quality Stroke Does the patient have a stroke diagnosis?: No VTE Prior VTE?: No VTE Risk Level:: Medical - moderate - high VTE Device Contraindication: Treatment Not Indicated VTE Drug Contraindication: Treatment Not Indicated
[2022-04-27 12:00] VITALS: BP 114/67; PULSE 69; RESP 18; TEMP 36.2; O2SAT 94
[2022-04-27] MEDS: Acetaminophen 325 MG TABLET 650 MG PO ×2 (12:39→17:54)
[2022-04-27 15:25] VITALS: BP 124/79; PULSE 92; RESP 18; TEMP 37.1; O2SAT 97
[2022-04-27] MEDS: Warfarin Sodium 3 MG TABLET PO (17:51)
--- NOTE | 2022-04-27 18:31 | PC.NURSE ---
pharmacy notified of 1.9 INR, noted it has been stable to maintain dose of 3mg
[2022-04-27 19:34] VITALS: BP 105/48; PULSE 100; RESP 18; TEMP 36.8; O2SAT 97
[2022-04-28] VITALS: BP 116/66; PULSE 85; RESP 17; TEMP 36.2; O2SAT 96
[2022-04-28] MEDS: oxyCODONE HCl Immed Release 5 MG TABLET 2.5 MG PO ×2 (05:00→17:25)
[2022-04-28 05:47] LABS: INTERNATIONAL NORM RATIO 2.2 (0.9-1.1); Prothrombin Time 25.8 SEC (10.0-13.1)
[2022-04-28 07:33] VITALS: BP 129/72; PULSE 95; RESP 18; TEMP 36.4; O2SAT 97
[2022-04-28] MEDS: Lidocaine 4 % Patch ADH..PATCH 1 PATCH TRANSDERMA (09:20)
[2022-04-28] MEDS: Bumetanide 1 MG TABLET PO (09:20)
[2022-04-28] MEDS: Metoprolol Tartrate 12.5 MG HALFTAB PO ×2 (09:20→21:21)
[2022-04-28] MEDS: Gabapentin 100 MG CAPSULE 200 MG PO ×2 (09:20→21:21)
[2022-04-28] MEDS: Escitalopram Oxalate 10 MG TABLET PO (09:20)
[2022-04-28 11:21] VITALS: BP 122/78; PULSE 69; RESP 18; TEMP 36.4; O2SAT 95
--- NOTE | 2022-04-28 12:54 | HO.PM.IMPN ---
Subjective Subjective Date of Service: 04/28/22 Interval History: the patient was seen and evaluated this morning Laying? in bed, feels comfortable Reporting ankle pain , annoyed by her big toe nail No reported other overnight events. Systemic review: No fever, chills or weakness No chest pain, palpitation No shortness of breath or coughing No abdominal pain, nausea or vomiting No urinary symptoms No rash Physical Exam Vital Signs: Vital Signs: Last Vital Signs Temp 97.6 F 04/28/22 11:21 Pulse 69 04/28/22 11:21 Resp 18 04/28/22 11:21 BP 122/78 04/28/22 11:21 Pulse Ox 95 04/28/22 11:21 O2 Del Method 04/28/22 11:21 O2 Flow Rate 1 04/28/22 11:21 FiO2 99 02/22/22 03:47 BMI result Body Mass Index 28.9 Const: Other: Constitutional : Alert, interactive, not in distress Neck : Normal inspection, Supple Cardiovascular : RRR, no JVP, no lower extremity edema Respiratory : fair bilateral air entry,? no crackles, wheezes or rhonchi, on room air Gastrointestinal:? soft, lax, Normal bowel sounds, Non tender Skin : Warm, Dry skin, prolonged nails in her toes specially left big toe Extremities:? no erythema or swelling noted, chronic deformity to left ankle and foot Neurological : Alert & oriented to self and place, weaker on the left lower extremity Objective Data Active Medications Acetaminophen (Acetaminophen 325 Mg Tablet) 650 mg PO Q6H PRN PRN Reason: Pain, Mild (Pain Scale 1-3) Last Admin: 04/27/22 17:54 Dose: 650 mg Documented By: EUGENIO Artificial Tears (Artificial Tears 15 Ml Drops) 1 drop EYE-BOTH Q4H PRN PRN Reason: Dry Eyes Bumetanide (Bumetanide 1 Mg Tablet) 1 mg PO DAILY [facility]; Protocol Last Admin: 04/28/22 09:20 Dose: 1 mg Documented By: JOSE LUIS Escitalopram Oxalate (Escitalopram Oxalate 10 Mg Tablet) 10 mg PO DAILY [facility] Last Admin: 04/28/22 09:20 Dose: 10 mg Documented By: JOSE LUIS Gabapentin (Gabapentin 100 Mg Capsule) 200 mg PO BID [facility] Last Admin: 04/28/22 09:20 Dose: 200 mg Documented By: JOSE LUIS Lidocaine (Lidocaine 4 % Patch Adh..Patch) 1 patch TRANSDERMA DAILY [facility]; Protocol Last Admin: 04/28/22 09:20 Dose: 1 patch Documented By: JOSE LUIS Metoprolol Tartrate (Metoprolol Tartrate 12.5 Mg Halftab) 12.5 mg PO BID [facility]; Protocol Last Admin: 04/28/22 09:20 Dose: 12.5 mg Documented By: JOSE LUIS Nystatin (Nystatin Powder 15 Gm Bottle) 1 appl TOPICAL TID [facility]; Protocol Last Admin: 04/28/22 09:22 Dose: Not Given Documented By: JOSE LUIS Non-Admin Reason: Patient Refused Ondansetron HCl (Ondansetron Odt 4 Mg Tab.Rapdis) 4 mg TRANSLINGU Q6H PRN PRN Reason: Nausea and Vomiting Last Admin: 04/03/22 04:51 Dose: 4 mg Documented By: DANE Oxycodone HCl (Oxycodone Hcl Immed Release 5 Mg Tablet) 2.5 mg PO Q6H PRN PRN Reason: Pain, Moderate (Pain Scale 4-6 Last Admin: 04/28/22 05:00 Dose: 2.5 mg Documented By: MEKHI Pharmacy Consult (Consult Rx Perform Med Rec) 1 each MISCELLANE ONCE PRN PRN Reason: Consult order Polyethylene Glycol (Polyethylene Glycol 3350 17 Gm Powd.Pack) 17 gm PO DAILY PRN PRN Reason: constipation Last Admin: 04/26/22 10:58 Dose: 17 gm Documented By: SIERRA Polyethylene Glycol (Polyethylene Glycol 3350 17 Gm Powd.Pack) 17 gm PO DAILY PRN PRN Reason: Constipation Polyethylene Glycol (Polyethylene Glycol 3350 17 Gm Powd.Pack) 17 gm PO DAILY [facility] Last Admin: 04/28/22 09:22 Dose: Not Given Documented By: JOSE LUIS Non-Admin Reason: Patient Refused Quetiapine Fumarate (Quetiapine Fumarate 25 Mg Tablet) 12.5 mg PO BID PRN PRN Reason: anxiety, agitation Last Admin: 04/25/22 20:32 Dose: 12.5 mg Documented By: YOVANY Warfarin Sodium (Warfarin Sodium 3 Mg Tablet) 3 mg PO DAILY@1800 [facility] Last Admin: 04/27/22 17:51 Dose: 3 mg Documented By: EUGENIO Labs CBC & Chem 7: 04/17/22 05:13 04/17/22 05:13 Labs: Laboratory Results - last 24 hr 04/28/22 05:18 PT 25.8 H INR 2.2 H Assessment and Plan (1) Ankle pain: Status: Acute (2) Psoriatic arthritis: Status: Acute Plan 81yo F with AF (persistent?) + HFpEF, initially was awaiting for LTC placement but became hypotensive and had positive UA concerning for infection, though ultimately grew coag-neg staph from urine and blood determined to be contaminant ankle pain Continue gabapentin to 200 mg b.i.d. Oxycodone 2.5 mg q.i.d. as needed MiraLax for constipation Will try to get inspector circuitry negative to help with cutting her toenails UTI finished antibiotic course hypotension asymptomatic, chronic Likely related to decrease body tune and being on beta-tony and?diuretics Chronic AFib Rate controlled on beta blockade Continue warfarin PT/ INR daily Chronic HFpEF Not in exacerbation Bumex dose decreased to 1 mg daily from 3 mg b.i.d. at home continue current therapies Psoriatic arthritis Pain medication as needed adjust as indicated left eye subconjuctval haemorrage asymptomatic, resolved VTE ppx warfarin inpatient need: pending LTC placement, safe disposition Quality Stroke Does the patient have a stroke diagnosis?: No VTE Prior VTE?: No VTE Risk Level:: Medical - moderate - high VTE Device Contraindication: Treatment Not Indicated VTE Drug Contraindication: Treatment Not Indicated
--- NOTE | 2022-04-28 13:46 | MHC.CM.PN ---
bed search continues for this pt as sghe is ready for dc
[2022-04-28 15:52] VITALS: BP 115/62; PULSE 88; RESP 17; TEMP 37.1; O2SAT 97
[2022-04-28] MEDS: Warfarin Sodium 3 MG TABLET PO (17:25)
[2022-04-28 19:31] VITALS: BP 103/59; PULSE 87; RESP 18; TEMP 36.7; O2SAT 96
[2022-04-28] MEDS: Acetaminophen 325 MG TABLET 650 MG PO (21:21)
[2022-04-28] MEDS: QUEtiapine Fumarate 25 MG TABLET 12.5 MG PO (21:22)
[2022-04-28 23:37] VITALS: BP 153/83; PULSE 64; RESP 17; TEMP 36.3; O2SAT 96
[2022-04-29 03:04] VITALS: BP 106/65; PULSE 90; RESP 18; TEMP 36.4; O2SAT 97
[2022-04-29] MEDS: oxyCODONE HCl Immed Release 5 MG TABLET 2.5 MG PO ×2 (03:13→14:34)
[2022-04-29 05:41] LABS: INTERNATIONAL NORM RATIO 2.4 (0.9-1.1); Prothrombin Time 28.1 SEC (10.0-13.1)
[2022-04-29 07:28] VITALS: BP 116/70; PULSE 75; RESP 16; TEMP 36.6; O2SAT 97
[2022-04-29] MEDS: Escitalopram Oxalate 10 MG TABLET PO (08:30)
[2022-04-29] MEDS: Gabapentin 100 MG CAPSULE 200 MG PO ×2 (08:30→20:05)
[2022-04-29] MEDS: Lidocaine 4 % Patch ADH..PATCH 1 PATCH TRANSDERMA (08:31)
[2022-04-29] MEDS: Bumetanide 1 MG TABLET PO (08:31)
[2022-04-29] MEDS: Metoprolol Tartrate 12.5 MG HALFTAB PO ×2 (08:31→20:06)
[2022-04-29] MEDS: Nystatin Powder 15 GM BOTTLE 1 APPL TOPICAL ×2 (08:43→20:49)
[2022-04-29 11:34] VITALS: BP 105/54; PULSE 75; RESP 18; TEMP 36.2; O2SAT 97
--- NOTE | 2022-04-29 11:54 | HO.PM.IMPN ---
Subjective Subjective Date of Service: 04/29/22 Interval History: the patient was seen and evaluated this morning Laying? in bed, feels comfortable Reporting ankle pain , annoyed by her big toe nail No reported other overnight events. Systemic review: No fever, chills or weakness No chest pain, palpitation No shortness of breath or coughing No abdominal pain, nausea or vomiting No urinary symptoms No rash Physical Exam Vital Signs: Vital Signs: Last Vital Signs Temp 97.2 F 04/29/22 11:34 Pulse 75 04/29/22 11:34 Resp 18 04/29/22 11:34 BP 105/54 L 04/29/22 11:34 Pulse Ox 97 04/29/22 11:34 O2 Del Method 04/29/22 11:34 O2 Flow Rate 2 04/29/22 11:34 FiO2 99 02/22/22 03:47 BMI result Body Mass Index 28.9 Const: Other: Constitutional : Alert, interactive, not in distress Neck : Normal inspection, Supple Cardiovascular : RRR, no JVP, no lower extremity edema Respiratory : fair bilateral air entry,? no crackles, wheezes or rhonchi, on room air Gastrointestinal:? soft, lax, Normal bowel sounds, Non tender Skin : Warm, Dry skin, prolonged nails in her toes specially left big toe Extremities:? no erythema or swelling noted, chronic deformity to left ankle and foot Neurological : Alert & oriented to self and place, weaker on the left lower extremity Objective Data Active Medications Acetaminophen (Acetaminophen 325 Mg Tablet) 650 mg PO Q6H PRN PRN Reason: Pain, Mild (Pain Scale 1-3) Last Admin: 04/28/22 21:21 Dose: 650 mg Documented By: VENKATA Artificial Tears (Artificial Tears 15 Ml Drops) 1 drop EYE-BOTH Q4H PRN PRN Reason: Dry Eyes Bumetanide (Bumetanide 1 Mg Tablet) 1 mg PO DAILY [facility]; Protocol Last Admin: 04/29/22 08:31 Dose: 1 mg Documented By: JOSE LUIS Escitalopram Oxalate (Escitalopram Oxalate 10 Mg Tablet) 10 mg PO DAILY [facility] Last Admin: 04/29/22 08:30 Dose: 10 mg Documented By: JOSE LUIS Gabapentin (Gabapentin 100 Mg Capsule) 200 mg PO BID [facility] Last Admin: 04/29/22 08:30 Dose: 200 mg Documented By: JOSE LUIS Lidocaine (Lidocaine 4 % Patch Adh..Patch) 1 patch TRANSDERMA DAILY [facility]; Protocol Last Admin: 04/29/22 08:31 Dose: 1 patch Documented By: JOSE LUIS Metoprolol Tartrate (Metoprolol Tartrate 12.5 Mg Halftab) 12.5 mg PO BID [facility]; Protocol Last Admin: 04/29/22 08:31 Dose: 12.5 mg Documented By: JOSE LUIS Nystatin (Nystatin Powder 15 Gm Bottle) 1 appl TOPICAL TID [facility]; Protocol Last Admin: 04/29/22 08:43 Dose: 1 appl Documented By: JOSE LUIS Ondansetron HCl (Ondansetron Odt 4 Mg Tab.Rapdis) 4 mg TRANSLINGU Q6H PRN PRN Reason: Nausea and Vomiting Last Admin: 04/03/22 04:51 Dose: 4 mg Documented By: DANE Oxycodone HCl (Oxycodone Hcl Immed Release 5 Mg Tablet) 2.5 mg PO Q6H PRN PRN Reason: Pain, Moderate (Pain Scale 4-6 Last Admin: 04/29/22 03:13 Dose: 2.5 mg Documented By: VENKATA Pharmacy Consult (Consult Rx Perform Med Rec) 1 each MISCELLANE ONCE PRN PRN Reason: Consult order Polyethylene Glycol (Polyethylene Glycol 3350 17 Gm Powd.Pack) 17 gm PO DAILY PRN PRN Reason: constipation Last Admin: 04/26/22 10:58 Dose: 17 gm Documented By: SIERRA Polyethylene Glycol (Polyethylene Glycol 3350 17 Gm Powd.Pack) 17 gm PO DAILY PRN PRN Reason: Constipation Polyethylene Glycol (Polyethylene Glycol 3350 17 Gm Powd.Pack) 17 gm PO DAILY [facility] Last Admin: 04/29/22 08:34 Dose: Not Given Documented By: JOSE LUIS Non-Admin Reason: Patient Refused Quetiapine Fumarate (Quetiapine Fumarate 25 Mg Tablet) 12.5 mg PO BID PRN PRN Reason: anxiety, agitation Last Admin: 04/28/22 21:22 Dose: 12.5 mg Documented By: VENKATA Warfarin Sodium (Warfarin Sodium 3 Mg Tablet) 3 mg PO DAILY@1800 [facility] Last Admin: 04/28/22 17:25 Dose: 3 mg Documented By: JOSE LUIS Labs CBC & Chem 7: 04/17/22 05:13 04/17/22 05:13 Labs: Laboratory Results - last 24 hr 04/29/22 05:14 PT 28.1 H INR 2.4 H Assessment and Plan (1) Ankle pain: Status: Acute (2) Psoriatic arthritis: Status: Acute Plan 81yo F with AF (persistent?) + HFpEF, initially was awaiting for LTC placement but became hypotensive and had positive UA concerning for infection, though ultimately grew coag-neg staph from urine and blood determined to be contaminant ankle pain Continue gabapentin to 200 mg b.i.d. Oxycodone 2.5 mg q.i.d. as needed MiraLax for constipation Will try to get java web developer to help with cutting her toenails UTI finished antibiotic course hypotension asymptomatic, chronic Likely related to decrease body tune and being on beta-tony and?diuretics Chronic AFib Rate controlled on beta blockade Continue warfarin PT/ INR daily Chronic HFpEF Not in exacerbation Bumex dose decreased to 1 mg daily from 3 mg b.i.d. at home continue current therapies Psoriatic arthritis Pain medication as needed adjust as indicated left eye subconjuctval haemorrage asymptomatic, resolved VTE ppx warfarin inpatient need: pending LTC placement, safe disposition Quality Stroke Does the patient have a stroke diagnosis?: No VTE Prior VTE?: No VTE Risk Level:: Medical - moderate - high VTE Device Contraindication: Treatment Not Indicated VTE Drug Contraindication: Treatment Not Indicated
[2022-04-29 16:00] VITALS: BP 104/65; PULSE 80; RESP 17; TEMP 36.7; O2SAT 96
[2022-04-29] MEDS: Warfarin Sodium 3 MG TABLET PO (17:23)
[2022-04-29] MEDS: Acetaminophen 325 MG TABLET 650 MG PO ×2 (17:23→23:34)
[2022-04-29 20:00] VITALS: BP 99/61; PULSE 87; RESP 16; TEMP 36.8; O2SAT 98
[2022-04-29] MEDS: QUEtiapine Fumarate 25 MG TABLET 12.5 MG PO (23:37)
[2022-04-29 23:56] VITALS: BP 98/54; PULSE 73; RESP 18; TEMP 36.3; O2SAT 97
[2022-04-30] VITALS (10 sets, daily range): BP systolic 85–149; BP diastolic 46–69; PULSE 67–95; RESP 16–19; TEMP 35.5–36.9; O2SAT 2–98
[2022-04-30] MEDS: oxyCODONE HCl Immed Release 5 MG TABLET 2.5 MG PO ×4 (01:06→22:06)
--- NOTE | 2022-04-30 05:14 | PC.NURSE ---
MD Garber contacted at 4:22 due to PT BP 85/46 manual. PT is asymptomatic. No new orders.
[2022-04-30 05:49] LABS: Hematocrit 29.5 % (37.0-47.0); Hemoglobin 9.2 g/dl (12.0-16.0); Mean Corpuscular HGB Conc 31.2 g/dl (31.0-35.0); Mean Corpuscular Hemoglobin 30.3 pg (27.0-33.0); Mean Platelet Volume 9.3 fL (9.4-12.3); Platelet Count 155 X10*3/uL (160-400); Red Blood Count 3.04 X10*6/uL (4.20-5.50); Red Cell Distribution Width 14.2 % (11.0-16.0); White Blood Count 3.8 X10*3/uL (4.8-10.8)
[2022-04-30 05:54] LABS: INTERNATIONAL NORM RATIO 2.6 (0.9-1.1); Prothrombin Time 30.5 SEC (10.0-13.1)
--- NOTE | 2022-04-30 06:07 | PC.NURSE ---
New order for IV Albumin, PT BP now 116/68 so MD Garber said to hold off on Albumin for now.
[2022-04-30 06:09] LABS: Anion Gap 9 (12-20); Blood Urea Nitrogen 19 mg/dL (9-16); Calcium 7.9 mg/dL (8.4-10.2); Chloride 95 mmol/L (96-108); Creatinine Clr Calc Pharmacy 71.1; Estimated Glomerular Filt Rate > 60; Glucose Random 93 mg/dL (60-115); Potassium 3.5 mmol/L (3.3-5.1); Sodium 141 mmol/L (135-145)
[2022-04-30 06:22] LABS: Carbon Dioxide 41 mmol/L (22-29)
[2022-04-30] MEDS: Bumetanide 1 MG TABLET PO (08:11)
[2022-04-30] MEDS: Metoprolol Tartrate 12.5 MG HALFTAB PO ×2 (08:11→19:36)
[2022-04-30] MEDS: Gabapentin 100 MG CAPSULE 200 MG PO ×2 (08:11→19:37)
[2022-04-30] MEDS: Escitalopram Oxalate 10 MG TABLET PO (08:12)
[2022-04-30] MEDS: Nystatin Powder 15 GM BOTTLE 1 APPL TOPICAL ×3 (08:14→19:38)
--- NOTE | 2022-04-30 09:02 | MHC.CM.PN ---
CM ATTEMPTED TO CONTACT FS VIA PHONE AND [employer] FOR UPDATE ON [facility] PROCESS AND TO SEE IF ALEJANDRO HAS FOLLOWED UP W/BANK STATEMENTS. CM AWAITING CALL BACK.
--- NOTE | 2022-04-30 09:42 | MHC.CLN ---
F/U DIET=CARDIAC. SUPPLEMENT ENSURE BID PROVIDES ADDITIONAL 700 KCALS, 40 G PROTEIN. SKIN WITH HEALING STAGE II TO BUTTOCKS. SUPPLEMENT APPROPRIATE TO PROMOTE SKIN INTEGRITY. INTAKE APPEARS GOOD WITH MOST MEALS 100%. CONTINUE TO FOLLOW FOR INTAKE AND SKIN INTEGRITY. RD TO FOLLOW WEEKLY.
--- NOTE | 2022-04-30 11:49 | HO.PM.IMPN ---
Subjective Subjective Date of Service: 04/30/22 Interval History: the patient was seen and evaluated this morning Laying? in bed, feels comfortable Reporting ankle pain , annoyed by her big toe nail No reported other overnight events. Systemic review: No fever, chills or weakness No chest pain, palpitation No shortness of breath or coughing No abdominal pain, nausea or vomiting No urinary symptoms No rash Physical Exam Vital Signs: Vital Signs: Last Vital Signs Temp 98.1 F 04/30/22 07:25 Pulse 67 04/30/22 07:25 Resp 18 04/30/22 07:25 BP 120/67 04/30/22 07:25 Pulse Ox 97 04/30/22 07:25 O2 Del Method 04/30/22 07:25 O2 Flow Rate 1 04/30/22 07:25 FiO2 99 02/22/22 03:47 BMI result Body Mass Index 28.9 Const: Other: Constitutional : Alert, interactive, not in distress Neck : Normal inspection, Supple Cardiovascular : RRR, no JVP, no lower extremity edema Respiratory : fair bilateral air entry,? no crackles, wheezes or rhonchi, on room air Gastrointestinal:? soft, lax, Normal bowel sounds, Non tender Skin : Warm, Dry skin, prolonged nails in her toes specially left big toe Extremities:? no erythema or swelling noted, chronic deformity to left ankle and foot Neurological : Alert & oriented to self and place, weaker on the left lower extremity Objective Data Active Medications Acetaminophen (Acetaminophen 325 Mg Tablet) 650 mg PO Q6H PRN PRN Reason: Pain, Mild (Pain Scale 1-3) Last Admin: 04/29/22 23:34 Dose: 650 mg Documented By: OMEGA Artificial Tears (Artificial Tears 15 Ml Drops) 1 drop EYE-BOTH Q4H PRN PRN Reason: Dry Eyes Bumetanide (Bumetanide 1 Mg Tablet) 1 mg PO DAILY [facility]; Protocol Last Admin: 04/30/22 08:11 Dose: 1 mg Documented By: DIMPLE Escitalopram Oxalate (Escitalopram Oxalate 10 Mg Tablet) 10 mg PO DAILY [facility] Last Admin: 04/30/22 08:12 Dose: 10 mg Documented By: DIMPLE Gabapentin (Gabapentin 100 Mg Capsule) 200 mg PO BID [facility] Last Admin: 04/30/22 08:11 Dose: 200 mg Documented By: DIMPLE Lidocaine (Lidocaine 4 % Patch Adh..Patch) 1 patch TRANSDERMA DAILY [facility]; Protocol Last Admin: 04/30/22 08:24 Dose: Not Given Documented By: DIMPLE Non-Admin Reason: Patient Refused Metoprolol Tartrate (Metoprolol Tartrate 12.5 Mg Halftab) 12.5 mg PO BID [facility]; Protocol Last Admin: 04/30/22 08:11 Dose: 12.5 mg Documented By: DIMPLE Nystatin (Nystatin Powder 15 Gm Bottle) 1 appl TOPICAL TID [facility]; Protocol Last Admin: 04/30/22 08:14 Dose: 1 appl Documented By: DIMPLE Ondansetron HCl (Ondansetron Odt 4 Mg Tab.Rapdis) 4 mg TRANSLINGU Q6H PRN PRN Reason: Nausea and Vomiting Last Admin: 04/03/22 04:51 Dose: 4 mg Documented By: DANE Oxycodone HCl (Oxycodone Hcl Immed Release 5 Mg Tablet) 2.5 mg PO Q6H PRN PRN Reason: Pain, Moderate (Pain Scale 4-6 Last Admin: 04/30/22 08:12 Dose: 2.5 mg Documented By: DIMPLE Pharmacy Consult (Consult Rx Perform Med Rec) 1 each MISCELLANE ONCE PRN PRN Reason: Consult order Polyethylene Glycol (Polyethylene Glycol 3350 17 Gm Powd.Pack) 17 gm PO DAILY PRN PRN Reason: constipation Last Admin: 04/26/22 10:58 Dose: 17 gm Documented By: SIERRA Polyethylene Glycol (Polyethylene Glycol 3350 17 Gm Powd.Pack) 17 gm PO DAILY PRN PRN Reason: Constipation Polyethylene Glycol (Polyethylene Glycol 3350 17 Gm Powd.Pack) 17 gm PO DAILY [facility] Last Admin: 04/30/22 08:25 Dose: Not Given Documented By: DIMPLE Non-Admin Reason: Patient Refused Quetiapine Fumarate (Quetiapine Fumarate 25 Mg Tablet) 12.5 mg PO BID PRN PRN Reason: anxiety, agitation Last Admin: 04/29/22 23:37 Dose: 12.5 mg Documented By: OMEGA Warfarin Sodium (Warfarin Sodium 3 Mg Tablet) 3 mg PO DAILY@1800 [facility] Last Admin: 04/29/22 17:23 Dose: 3 mg Documented By: JOSE LUIS Labs CBC & Chem 7: 04/30/22 05:02 04/30/22 05:02 Labs: Laboratory Results - last 24 hr 04/30/22 04/30/22 04/30/22 05:02 05:02 05:02 MCV 97.0 MCH 30.3 MCHC 31.2 RDW 14.2 Plt Count 155 L MPV 9.3 L Absolute Nucleated RBC 0.000 Nucleated RBC % (auto) 0.0 PT 30.5 H INR 2.6 H Anion Gap 9 L Estim Creat Clear Calc 71.1 Estimated GFR > 60 Random Glucose 93 Calcium 7.9 L Assessment and Plan (1) Ankle pain: Status: Acute (2) Psoriatic arthritis: Status: Acute Plan 81yo F with AF (persistent?) + HFpEF, initially was awaiting for LTC placement but became hypotensive and had positive UA concerning for infection, though ultimately grew coag-neg staph from urine and blood determined to be contaminant ankle pain Continue gabapentin to 200 mg b.i.d. Oxycodone 2.5 mg q.i.d. as needed MiraLax for constipation Will try to get electric motor repairing supervisor to help with cutting her toenails UTI finished antibiotic course hypotension asymptomatic, chronic Likely related to decrease body tune and being on beta-tony and?diuretics Chronic AFib Rate controlled on beta blockade Continue warfarin PT/ INR daily Chronic HFpEF Not in exacerbation Bumex dose decreased to 1 mg daily from 3 mg b.i.d. at home continue current therapies Psoriatic arthritis Pain medication as needed adjust as indicated left eye subconjuctval haemorrage asymptomatic, resolved VTE ppx warfarin inpatient need: pending LTC placement, safe disposition Quality Stroke Does the patient have a stroke diagnosis?: No VTE Prior VTE?: No VTE Risk Level:: Medical - moderate - high VTE Device Contraindication: Treatment Not Indicated VTE Drug Contraindication: Treatment Not Indicated
[2022-04-30] MEDS: Warfarin Sodium 3 MG TABLET PO (17:43)
[2022-04-30] MEDS: Acetaminophen 325 MG TABLET 650 MG PO (19:36)
[2022-05-01] MEDS: oxyCODONE HCl Immed Release 5 MG TABLET 2.5 MG PO ×3 (00:36→17:30)
[2022-05-01] MEDS: QUEtiapine Fumarate 25 MG TABLET 12.5 MG PO ×2 (00:36→20:22)
[2022-05-01 03:42] VITALS: BP 92/53; PULSE 72; RESP 17; TEMP 36.1; O2SAT 97
[2022-05-01 06:51] VITALS: BP 112/56; PULSE 78; RESP 19; TEMP 36.6; O2SAT 97
[2022-05-01 07:34] LABS: INTERNATIONAL NORM RATIO 2.4 (0.9-1.1); Prothrombin Time 28.5 SEC (10.0-13.1)
--- NOTE | 2022-05-01 08:58 | HO.PM.IMPN ---
Subjective Subjective Date of Service: 05/01/22 Interval History: the patient was seen and evaluated this morning Laying? in bed, feels comfortable Reporting ankle pain , annoyed by her big toe nail No reported other overnight events. Systemic review: No fever, chills or weakness No chest pain, palpitation No shortness of breath or coughing No abdominal pain, nausea or vomiting No urinary symptoms No rash Physical Exam Vital Signs: Vital Signs: Last Vital Signs Temp 98 F 05/01/22 06:51 Pulse 78 05/01/22 06:51 Resp 19 05/01/22 06:51 BP 112/56 L 05/01/22 06:51 Pulse Ox 97 05/01/22 06:51 O2 Del Method 05/01/22 06:51 O2 Flow Rate 2 05/01/22 06:51 FiO2 99 02/22/22 03:47 BMI result Body Mass Index 28.9 Const: Other: Constitutional : Alert, interactive, not in distress Neck : Normal inspection, Supple Cardiovascular : RRR, no JVP, no lower extremity edema Respiratory : fair bilateral air entry,? no crackles, wheezes or rhonchi, on room air Gastrointestinal:? soft, lax, Normal bowel sounds, Non tender Skin : Warm, Dry skin, prolonged nails in her toes specially left big toe Extremities:? no erythema or swelling noted, chronic deformity to left ankle and foot Neurological : Alert & oriented to self and place, weaker on the left lower extremity Objective Data Active Medications Acetaminophen (Acetaminophen 325 Mg Tablet) 650 mg PO Q6H PRN PRN Reason: Pain, Mild (Pain Scale 1-3) Last Admin: 04/30/22 19:36 Dose: 650 mg Documented By: SHAY Artificial Tears (Artificial Tears 15 Ml Drops) 1 drop EYE-BOTH Q4H PRN PRN Reason: Dry Eyes Bumetanide (Bumetanide 1 Mg Tablet) 1 mg PO DAILY [facility]; Protocol Last Admin: 04/30/22 08:11 Dose: 1 mg Documented By: DIMPLE Escitalopram Oxalate (Escitalopram Oxalate 10 Mg Tablet) 10 mg PO DAILY [facility] Last Admin: 04/30/22 08:12 Dose: 10 mg Documented By: DIMPLE Gabapentin (Gabapentin 100 Mg Capsule) 200 mg PO BID [facility] Last Admin: 04/30/22 19:37 Dose: 200 mg Documented By: SHAY Lidocaine (Lidocaine 4 % Patch Adh..Patch) 1 patch TRANSDERMA DAILY [facility]; Protocol Last Admin: 04/30/22 08:24 Dose: Not Given Documented By: DIMPLE Non-Admin Reason: Patient Refused Metoprolol Tartrate (Metoprolol Tartrate 12.5 Mg Halftab) 12.5 mg PO BID [facility]; Protocol Last Admin: 04/30/22 19:36 Dose: 12.5 mg Documented By: SHAY Nystatin (Nystatin Powder 15 Gm Bottle) 1 appl TOPICAL TID [facility]; Protocol Last Admin: 04/30/22 19:38 Dose: 1 appl Documented By: SHAY Ondansetron HCl (Ondansetron Odt 4 Mg Tab.Rapdis) 4 mg TRANSLINGU Q6H PRN PRN Reason: Nausea and Vomiting Last Admin: 04/03/22 04:51 Dose: 4 mg Documented By: DANE Oxycodone HCl (Oxycodone Hcl Immed Release 5 Mg Tablet) 2.5 mg PO Q6H PRN PRN Reason: Pain, Moderate (Pain Scale 4-6 Last Admin: 05/01/22 00:36 Dose: 2.5 mg Documented By: SHAY Pharmacy Consult (Consult Rx Perform Med Rec) 1 each MISCELLANE ONCE PRN PRN Reason: Consult order Polyethylene Glycol (Polyethylene Glycol 3350 17 Gm Powd.Pack) 17 gm PO DAILY PRN PRN Reason: constipation Last Admin: 04/26/22 10:58 Dose: 17 gm Documented By: SIERRA Polyethylene Glycol (Polyethylene Glycol 3350 17 Gm Powd.Pack) 17 gm PO DAILY PRN PRN Reason: Constipation Polyethylene Glycol (Polyethylene Glycol 3350 17 Gm Powd.Pack) 17 gm PO DAILY [facility] Last Admin: 04/30/22 08:25 Dose: Not Given Documented By: DIMPLE Non-Admin Reason: Patient Refused Quetiapine Fumarate (Quetiapine Fumarate 25 Mg Tablet) 12.5 mg PO BID PRN PRN Reason: anxiety, agitation Last Admin: 05/01/22 00:36 Dose: 12.5 mg Documented By: SHAY Warfarin Sodium (Warfarin Sodium 3 Mg Tablet) 3 mg PO DAILY@1800 [facility] Last Admin: 04/30/22 17:43 Dose: 3 mg Documented By: DIMPLE Labs CBC & Chem 7: 04/30/22 05:02 04/30/22 05:02 Labs: Laboratory Results - last 24 hr 05/01/22 05:43 PT 28.5 H INR 2.4 H Assessment and Plan (1) Ankle pain: Status: Acute (2) Psoriatic arthritis: Status: Acute Plan 81yo F with AF (persistent?) + HFpEF, initially was awaiting for LTC placement but became hypotensive and had positive UA concerning for infection, though ultimately grew coag-neg staph from urine and blood determined to be contaminant ankle pain Continue gabapentin to 200 mg b.i.d. Oxycodone 2.5 mg q.i.d. as needed MiraLax for constipation Will try to get platform material handling supervisor to help with cutting her toenails UTI finished antibiotic course hypotension asymptomatic, chronic Likely related to decrease body tune and being on beta-tony and?diuretics Chronic AFib Rate controlled on beta blockade Continue warfarin PT/ INR daily Chronic HFpEF Not in exacerbation Bumex dose decreased to 1 mg daily from 3 mg b.i.d. at home continue current therapies Psoriatic arthritis Pain medication as needed adjust as indicated left eye subconjuctval haemorrage asymptomatic, resolved VTE ppx warfarin inpatient need: pending LTC placement, safe disposition Quality Stroke Does the patient have a stroke diagnosis?: No VTE Prior VTE?: No VTE Risk Level:: Medical - moderate - high VTE Device Contraindication: Treatment Not Indicated VTE Drug Contraindication: Treatment Not Indicated
[2022-05-01] MEDS: Acetaminophen 325 MG TABLET 650 MG PO ×2 (10:16→20:21)
[2022-05-01] MEDS: Bumetanide 1 MG TABLET PO (10:17)
[2022-05-01] MEDS: Metoprolol Tartrate 12.5 MG HALFTAB PO ×2 (10:17→20:21)
[2022-05-01] MEDS: Gabapentin 100 MG CAPSULE 200 MG PO ×2 (10:17→20:21)
[2022-05-01] MEDS: Escitalopram Oxalate 10 MG TABLET PO (10:18)
[2022-05-01] MEDS: Lidocaine 4 % Patch ADH..PATCH 1 PATCH TRANSDERMA (10:18)
[2022-05-01] MEDS: polyethylene glycoL 3350 17 GM POWD.PACK PO (10:18)
[2022-05-01] MEDS: Nystatin Powder 15 GM BOTTLE 1 APPL TOPICAL ×2 (10:19→20:21)
[2022-05-01 11:08] VITALS: BP 127/77; PULSE 101; RESP 20; TEMP 36.1; O2SAT 93
[2022-05-01 15:29] VITALS: BP 91/55; PULSE 83; RESP 18; TEMP 36.5; O2SAT 96
[2022-05-01] MEDS: Warfarin Sodium 3 MG TABLET PO (17:29)
[2022-05-01 19:27] VITALS: BP 119/67; PULSE 85; RESP 18; TEMP 36.9; O2SAT 97
[2022-05-01 23:49] VITALS: BP 92/54; PULSE 74; RESP 16; TEMP 36.4; O2SAT 99
[2022-05-02] MEDS: oxyCODONE HCl Immed Release 5 MG TABLET 2.5 MG PO ×4 (01:39→18:02)
[2022-05-02 02:21] VITALS: BP 90/52; PULSE 65; RESP 16; TEMP 36.2; O2SAT 96
[2022-05-02 05:56] LABS: INTERNATIONAL NORM RATIO 2.1 (0.9-1.1); Prothrombin Time 24.9 SEC (10.0-13.1)
[2022-05-02 06:56] VITALS: BP 123/69; RESP 20; TEMP 36.6; O2SAT 98
--- NOTE | 2022-05-02 09:30 | HO.PM.IMPN ---
Subjective Subjective Date of Service: 05/02/22 Interval History: the patient was seen and evaluated this morning Laying? in bed, feels comfortable Reporting ankle pain , annoyed by her big toe nail No reported other overnight events. Systemic review: No fever, chills or weakness No chest pain, palpitation No shortness of breath or coughing No abdominal pain, nausea or vomiting No urinary symptoms No rash Physical Exam Vital Signs: Vital Signs: Last Vital Signs Temp 98 F 05/02/22 06:56 Pulse 65 05/02/22 02:21 Resp 20 05/02/22 06:56 BP 123/69 05/02/22 06:56 Pulse Ox 98 05/02/22 06:56 O2 Del Method 05/02/22 06:56 O2 Flow Rate 2 05/02/22 06:56 FiO2 99 02/22/22 03:47 BMI result Body Mass Index 28.9 Const: Other: Constitutional : Alert, interactive, not in distress Neck : Normal inspection, Supple Cardiovascular : RRR, no JVP, no lower extremity edema Respiratory : fair bilateral air entry,? no crackles, wheezes or rhonchi, on room air Gastrointestinal:? soft, lax, Normal bowel sounds, Non tender Skin : Warm, Dry skin, prolonged nails in her toes specially left big toe Extremities:? no erythema or swelling noted, chronic deformity to left ankle and foot Neurological : Alert & oriented to self and place, weaker on the left lower extremity Objective Data Active Medications Acetaminophen (Acetaminophen 325 Mg Tablet) 650 mg PO Q6H PRN PRN Reason: Pain, Mild (Pain Scale 1-3) Last Admin: 05/01/22 20:21 Dose: 650 mg Documented By: SHAY Artificial Tears (Artificial Tears 15 Ml Drops) 1 drop EYE-BOTH Q4H PRN PRN Reason: Dry Eyes Bumetanide (Bumetanide 1 Mg Tablet) 1 mg PO DAILY [facility]; Protocol Last Admin: 05/01/22 10:17 Dose: 1 mg Documented By: ASHELY Escitalopram Oxalate (Escitalopram Oxalate 10 Mg Tablet) 10 mg PO DAILY [facility] Last Admin: 05/01/22 10:18 Dose: 10 mg Documented By: ASHELY Gabapentin (Gabapentin 100 Mg Capsule) 200 mg PO BID [facility] Last Admin: 05/01/22 20:21 Dose: 200 mg Documented By: SHAY Lidocaine (Lidocaine 4 % Patch Adh..Patch) 1 patch TRANSDERMA DAILY [facility]; Protocol Last Admin: 05/01/22 10:18 Dose: 1 patch Documented By: ASHELY Metoprolol Tartrate (Metoprolol Tartrate 12.5 Mg Halftab) 12.5 mg PO BID [facility]; Protocol Last Admin: 05/01/22 20:21 Dose: 12.5 mg Documented By: SHAY Nystatin (Nystatin Powder 15 Gm Bottle) 1 appl TOPICAL TID [facility]; Protocol Last Admin: 05/01/22 20:21 Dose: 1 appl Documented By: SHAY Ondansetron HCl (Ondansetron Odt 4 Mg Tab.Rapdis) 4 mg TRANSLINGU Q6H PRN PRN Reason: Nausea and Vomiting Last Admin: 04/03/22 04:51 Dose: 4 mg Documented By: DANE Oxycodone HCl (Oxycodone Hcl Immed Release 5 Mg Tablet) 2.5 mg PO Q6H PRN PRN Reason: Pain, Moderate (Pain Scale 4-6 Last Admin: 05/02/22 01:39 Dose: 2.5 mg Documented By: SHAY Pharmacy Consult (Consult Rx Perform Med Rec) 1 each MISCELLANE ONCE PRN PRN Reason: Consult order Polyethylene Glycol (Polyethylene Glycol 3350 17 Gm Powd.Pack) 17 gm PO DAILY PRN PRN Reason: constipation Last Admin: 04/26/22 10:58 Dose: 17 gm Documented By: SIERRA Polyethylene Glycol (Polyethylene Glycol 3350 17 Gm Powd.Pack) 17 gm PO DAILY [facility] Last Admin: 05/01/22 10:18 Dose: 17 gm Documented By: ASHELY Quetiapine Fumarate (Quetiapine Fumarate 25 Mg Tablet) 12.5 mg PO BID PRN PRN Reason: anxiety, agitation Last Admin: 05/01/22 20:22 Dose: 12.5 mg Documented By: SHAY Warfarin Sodium (Warfarin Sodium 3 Mg Tablet) 3 mg PO DAILY@1800 [facility] Last Admin: 05/01/22 17:29 Dose: 3 mg Documented By: PAWAN Labs CBC & Chem 7: 04/30/22 05:02 04/30/22 05:02 Labs: Laboratory Results - last 24 hr 05/02/22 05:13 PT 24.9 H INR 2.1 H Assessment and Plan (1) Ankle pain: Status: Acute (2) Psoriatic arthritis: Status: Acute Plan 81yo F with AF (persistent?) + HFpEF, initially was awaiting for LTC placement but became hypotensive and had positive UA concerning for infection, though ultimately grew coag-neg staph from urine and blood determined to be contaminant ankle pain Continue gabapentin to 200 mg b.i.d. Oxycodone 2.5 mg q.i.d. as needed MiraLax for constipation Will try to get federal district clerk to help with cutting her toenails UTI finished antibiotic course hypotension asymptomatic, chronic Likely related to decrease body tune and being on beta-tony and?diuretics Chronic AFib Rate controlled on beta blockade Continue warfarin PT/ INR daily Chronic HFpEF Not in exacerbation Bumex dose decreased to 1 mg daily from 3 mg b.i.d. at home continue current therapies Psoriatic arthritis Pain medication as needed adjust as indicated left eye subconjuctval haemorrage asymptomatic, resolved VTE ppx warfarin inpatient need: pending LTC placement, safe disposition Quality Stroke Does the patient have a stroke diagnosis?: No VTE Prior VTE?: No VTE Risk Level:: Medical - moderate - high VTE Device Contraindication: Treatment Not Indicated VTE Drug Contraindication: Treatment Not Indicated
[2022-05-02] MEDS: Acetaminophen 325 MG TABLET 650 MG PO ×2 (09:42→21:29)
[2022-05-02] MEDS: Metoprolol Tartrate 12.5 MG HALFTAB PO ×2 (09:44→21:21)
[2022-05-02] MEDS: Lidocaine 4 % Patch ADH..PATCH 1 PATCH TRANSDERMA (09:44)
[2022-05-02] MEDS: Gabapentin 100 MG CAPSULE 200 MG PO ×2 (09:44→21:21)
[2022-05-02] MEDS: Escitalopram Oxalate 10 MG TABLET PO (09:45)
[2022-05-02] MEDS: Bumetanide 1 MG TABLET PO (09:45)
[2022-05-02 10:58] VITALS: BP 106/58; RESP 18; TEMP 36; O2SAT 96
[2022-05-02 15:12] VITALS: BP 113/68; PULSE 86; RESP 17; TEMP 36.4; O2SAT 92
[2022-05-02] MEDS: Warfarin Sodium 3 MG TABLET PO (17:52)
[2022-05-02 19:26] VITALS: BP 109/56; PULSE 80; RESP 17; TEMP 36.3; O2SAT 97
[2022-05-02] MEDS: QUEtiapine Fumarate 25 MG TABLET 12.5 MG PO (21:29)
[2022-05-02 23:33] VITALS: BP 92/58; PULSE 68; RESP 18; TEMP 36.9; O2SAT 100
[2022-05-03] VITALS (7 sets, daily range): BP systolic 85–115; BP diastolic 48–63; PULSE 69–99; RESP 16–18; TEMP 36–36.9; O2SAT 95–100
[2022-05-03 06:27] LABS: INTERNATIONAL NORM RATIO 2.1 (0.9-1.1); Prothrombin Time 24.3 SEC (10.0-13.1)
[2022-05-03] MEDS: oxyCODONE HCl Immed Release 5 MG TABLET 2.5 MG PO ×3 (06:36→21:03)
--- NOTE | 2022-05-03 08:58 | P.PNIM_ITS ---
Subjective Subjective Date of Service: 05/03/22 Interval History: the patient was seen and evaluated this morning Laying? in bed, feels comfortable Reporting ankle pain , annoyed by her big toe nail No reported other overnight events. Systemic review: No fever, chills or weakness No chest pain, palpitation No shortness of breath or coughing No abdominal pain, nausea or vomiting No urinary symptoms No rash Physical Exam Vital Signs: Vital Signs: Last Vital Signs Temp 96.8 F 05/03/22 07:22 Pulse 79 05/03/22 07:22 Resp 17 05/03/22 07:22 BP 115/60 05/03/22 07:22 Pulse Ox 96 05/03/22 07:22 O2 Del Method 05/03/22 07:22 O2 Flow Rate 3 05/03/22 07:22 FiO2 99 02/22/22 03:47 BMI result Body Mass Index 28.9 Const: Other: Constitutional : Alert, interactive, not in distress Neck : Normal inspection, Supple Cardiovascular : RRR, no JVP, no lower extremity edema Respiratory : fair bilateral air entry,? no crackles, wheezes or rhonchi, on room air Gastrointestinal:? soft, lax, Normal bowel sounds, Non tender Skin : Warm, Dry skin, prolonged nails in her toes specially left big toe Extremities:? no erythema or swelling noted, chronic deformity to left ankle and foot Neurological : Alert & oriented to self and place, weaker on the left lower extremity Objective Data Active Medications Acetaminophen (Acetaminophen 325 Mg Tablet) 650 mg PO Q6H PRN PRN Reason: Pain, Mild (Pain Scale 1-3) Last Admin: 05/02/22 21:29 Dose: 650 mg Documented By: CHAN Artificial Tears (Artificial Tears 15 Ml Drops) 1 drop EYE-BOTH Q4H PRN PRN Reason: Dry Eyes Bumetanide (Bumetanide 1 Mg Tablet) 1 mg PO DAILY [facility]; Protocol Last Admin: 05/02/22 09:45 Dose: 1 mg Documented By: ASHELY Escitalopram Oxalate (Escitalopram Oxalate 10 Mg Tablet) 10 mg PO DAILY [facility] Last Admin: 05/02/22 09:45 Dose: 10 mg Documented By: ASHELY Gabapentin (Gabapentin 100 Mg Capsule) 200 mg PO BID [facility] Last Admin: 05/02/22 21:21 Dose: 200 mg Documented By: CHAN Lidocaine (Lidocaine 4 % Patch Adh..Patch) 1 patch TRANSDERMA DAILY [facility]; Protocol Last Admin: 05/02/22 09:44 Dose: 1 patch Documented By: ASHELY Metoprolol Tartrate (Metoprolol Tartrate 12.5 Mg Halftab) 12.5 mg PO BID [facility]; Protocol Last Admin: 05/02/22 21:21 Dose: 12.5 mg Documented By: CHAN Nystatin (Nystatin Powder 15 Gm Bottle) 1 appl TOPICAL TID [facility]; Protocol Last Admin: 05/02/22 21:35 Dose: Not Given Documented By: CHAN Non-Admin Reason: Med Not Available Ondansetron HCl (Ondansetron Odt 4 Mg Tab.Rapdis) 4 mg TRANSLINGU Q6H PRN PRN Reason: Nausea and Vomiting Last Admin: 04/03/22 04:51 Dose: 4 mg Documented By: DANE Oxycodone HCl (Oxycodone Hcl Immed Release 5 Mg Tablet) 2.5 mg PO Q6H PRN PRN Reason: Pain, Severe (Pain Scale 7-10) Last Admin: 05/03/22 06:36 Dose: 2.5 mg Documented By: RADHA Pharmacy Consult (Consult Rx Perform Med Rec) 1 each MISCELLANE ONCE PRN PRN Reason: Consult order Polyethylene Glycol (Polyethylene Glycol 3350 17 Gm Powd.Pack) 17 gm PO DAILY PRN PRN Reason: constipation Last Admin: 04/26/22 10:58 Dose: 17 gm Documented By: SIERRA Polyethylene Glycol (Polyethylene Glycol 3350 17 Gm Powd.Pack) 17 gm PO DAILY [facility] Last Admin: 05/02/22 09:46 Dose: Not Given Documented By: ASHELY Non-Admin Reason: Patient Refused Quetiapine Fumarate (Quetiapine Fumarate 25 Mg Tablet) 12.5 mg PO BID PRN PRN Reason: anxiety, agitation Last Admin: 05/02/22 21:29 Dose: 12.5 mg Documented By: CHAN Warfarin Sodium (Warfarin Sodium 3 Mg Tablet) 3 mg PO DAILY@1800 [facility] Last Admin: 05/02/22 17:52 Dose: 3 mg Documented By: CHAN Labs CBC & Chem 7: 04/30/22 05:02 04/30/22 05:02 Labs: Laboratory Results - last 24 hr 05/03/22 05:48 PT 24.3 H INR 2.1 H Assessment and Plan (1) Ankle pain: Status: Acute (2) Psoriatic arthritis: Status: Acute Plan 81yo F with AF (persistent?) + HFpEF, initially was awaiting for LTC placement but became hypotensive and had positive UA concerning for infection, though u ltimately grew coag-neg staph from urine and blood determined to be contaminant ankle pain Continue gabapentin to 200 mg b.i.d. Oxycodone 2.5 mg q.i.d. as needed MiraLax for constipation Will try to get wound care rn to help with cutting her toenails UTI finished antibiotic course hypotension asymptomatic, chronic Likely related to decrease body tune and being on beta-tony and?diuretics Chronic AFib Rate controlled on beta blockade Continue warfarin PT/ INR daily Chronic HFpEF Not in exacerbation Bumex dose decreased to 1 mg daily from 3 mg b.i.d. at home continue current therapies Psoriatic arthritis Pain medication as needed adjust as indicated left eye subconjuctval haemorrage asymptomatic, resolved VTE ppx warfarin inpatient need: pending LTC placement, safe disposition Quality Stroke Does the patient have a stroke diagnosis?: No VTE Prior VTE?: No VTE Risk Level:: Medical - moderate - high VTE Device Contraindication: Treatment Not Indicated VTE Drug Contraindication: Treatment Not Indicated
[2022-05-03] MEDS: Acetaminophen 325 MG TABLET 650 MG PO ×2 (10:31→23:50)
[2022-05-03] MEDS: Escitalopram Oxalate 10 MG TABLET PO (10:32)
[2022-05-03] MEDS: Bumetanide 1 MG TABLET PO (10:32)
[2022-05-03] MEDS: Gabapentin 100 MG CAPSULE 200 MG PO ×2 (10:32→20:59)
[2022-05-03] MEDS: Lidocaine 4 % Patch ADH..PATCH 1 PATCH TRANSDERMA (10:33)
[2022-05-03] MEDS: Nystatin Powder 15 GM BOTTLE 1 APPL TOPICAL ×3 (10:34→21:08)
[2022-05-03] MEDS: Warfarin Sodium 3 MG TABLET PO (20:59)
[2022-05-03] MEDS: QUEtiapine Fumarate 25 MG TABLET 12.5 MG PO (23:51)
[2022-05-04] VITALS: BP 128/56; PULSE 87; RESP 18; TEMP 36.6; O2SAT 95
--- NOTE | 2022-05-04 00:58 | PC.NURSE ---
pt c/o a lot of pain in legs and feet.not due for oxycodone until 3am.medicated with tylenol at 2350 with little effect. notified and said to give an additional dose x1.
[2022-05-04] MEDS: oxyCODONE HCl Immed Release 5 MG TABLET 2.5 MG PO ×3 (01:04→18:44)
[2022-05-04 06:32] LABS: INTERNATIONAL NORM RATIO 2.1 (0.9-1.1); Prothrombin Time 24.7 SEC (10.0-13.1)
[2022-05-04] MEDS: Escitalopram Oxalate 10 MG TABLET PO (07:24)
[2022-05-04] MEDS: Lidocaine 4 % Patch ADH..PATCH 1 PATCH TRANSDERMA (07:24)
[2022-05-04] MEDS: Gabapentin 100 MG CAPSULE 200 MG PO ×2 (07:24→20:07)
[2022-05-04] MEDS: Bumetanide 1 MG TABLET PO (07:24)
[2022-05-04] MEDS: Metoprolol Tartrate 12.5 MG HALFTAB PO ×2 (07:24→20:06)
[2022-05-04] MEDS: polyethylene glycoL 3350 17 GM POWD.PACK PO (07:25)
[2022-05-04] MEDS: Nystatin Powder 15 GM BOTTLE 1 APPL TOPICAL ×3 (07:25→20:09)
[2022-05-04 08:00] VITALS: BP 100/53; PULSE 77; RESP 18; TEMP 36.2; O2SAT 96
--- NOTE | 2022-05-04 08:29 | P.PNIM_ITS ---
Subjective Subjective Date of Service: 05/04/22 Interval History: the patient was seen and evaluated this morning Laying? in bed, feels comfortable Reporting ankle pain , annoyed by her big toe nail No reported other overnight events. Systemic review: No fever, chills or weakness No chest pain, palpitation No shortness of breath or coughing No abdominal pain, nausea or vomiting No urinary symptoms No rash Physical Exam Vital Signs: Vital Signs: Last Vital Signs Temp 97.9 F 05/04/22 00:00 Pulse 87 05/04/22 00:00 Resp 18 05/04/22 00:00 BP 128/56 L 05/04/22 00:00 Pulse Ox 95 05/04/22 00:00 O2 Del Method 05/04/22 00:00 O2 Flow Rate 2 05/04/22 00:00 FiO2 99 02/22/22 03:47 BMI result Body Mass Index 28.9 Const: Other: Constitutional : Alert, interactive, not in distress Neck : Normal inspection, Supple Cardiovascular : RRR, no JVP, no lower extremity edema Respiratory : fair bilateral air entry,? no crackles, wheezes or rhonchi, on room air Gastrointestinal:? soft, lax, Normal bowel sounds, Non tender Skin : Warm, Dry skin, prolonged nails in her toes specially left big toe Extremities:? no erythema or swelling noted, chronic deformity to left ankle and foot Neurological : Alert & oriented to self and place, weaker on the left lower extremity Objective Data Active Medications Acetaminophen (Acetaminophen 325 Mg Tablet) 650 mg PO Q6H PRN PRN Reason: Pain, Mild (Pain Scale 1-3) Last Admin: 05/03/22 23:50 Dose: 650 mg Documented By: MILLY Artificial Tears (Artificial Tears 15 Ml Drops) 1 drop EYE-BOTH Q4H PRN PRN Reason: Dry Eyes Bumetanide (Bumetanide 1 Mg Tablet) 1 mg PO DAILY [facility]; Protocol Last Admin: 05/04/22 07:24 Dose: 1 mg Documented By: DIMPLE Escitalopram Oxalate (Escitalopram Oxalate 10 Mg Tablet) 10 mg PO DAILY [facility] Last Admin: 05/04/22 07:24 Dose: 10 mg Documented By: DIMPLE Gabapentin (Gabapentin 100 Mg Capsule) 200 mg PO BID [facility] Last Admin: 05/04/22 07:24 Dose: 200 mg Documented By: DIMPLE Lidocaine (Lidocaine 4 % Patch Adh..Patch) 1 patch TRANSDERMA DAILY [facility]; Protocol Last Admin: 05/04/22 07:24 Dose: 1 patch Documented By: DIMPLE Metoprolol Tartrate (Metoprolol Tartrate 12.5 Mg Halftab) 12.5 mg PO BID [facility]; Protocol Last Admin: 05/04/22 07:24 Dose: 12.5 mg Documented By: DIMPLE Nystatin (Nystatin Powder 15 Gm Bottle) 1 appl TOPICAL TID [facility]; Protocol Last Admin: 05/04/22 07:25 Dose: 1 appl Documented By: DIMPLE Ondansetron HCl (Ondansetron Odt 4 Mg Tab.Rapdis) 4 mg TRANSLINGU Q6H PRN PRN Reason: Nausea and Vomiting Last Admin: 04/03/22 04:51 Dose: 4 mg Documented By: DANE Oxycodone HCl (Oxycodone Hcl Immed Release 5 Mg Tablet) 2.5 mg PO Q6H PRN PRN Reason: Pain, Severe (Pain Scale 7-10) Last Admin: 05/04/22 07:37 Dose: 2.5 mg Documented By: DIMPLE Pharmacy Consult (Consult Rx Perform Med Rec) 1 each MISCELLANE ONCE PRN PRN Reason: Consult order Polyethylene Glycol (Polyethylene Glycol 3350 17 Gm Powd.Pack) 17 gm PO DAILY PRN PRN Reason: constipation Last Admin: 04/26/22 10:58 Dose: 17 gm Documented By: SIERRA Polyethylene Glycol (Polyethylene Glycol 3350 17 Gm Powd.Pack) 17 gm PO DAILY [facility] Last Admin: 05/04/22 07:25 Dose: 17 gm Documented By: DIMPLE Quetiapine Fumarate (Quetiapine Fumarate 25 Mg Tablet) 12.5 mg PO BID PRN PRN Reason: anxiety, agitation Last Admin: 05/03/22 23:51 Dose: 12.5 mg Documented By: MILLY Warfarin Sodium (Warfarin Sodium 3 Mg Tablet) 3 mg PO DAILY@1800 [facility] Last Admin: 05/03/22 20:59 Dose: 3 mg Documented By: MILLY Labs CBC & Chem 7: 04/30/22 05:02 04/30/22 05:02 Labs: Laboratory Results - last 24 hr 05/04/22 05:51 PT 24.7 H INR 2.1 H Assessment and Plan (1) Ankle pain: Status: Acute (2) Psoriatic arthritis: Status: Acute Plan 81yo F with AF (persistent?) + HFpEF, initially was awaiting for LTC placement but became hypotensive and had positive UA concerning for infection, though ultimately grew coag-neg staph from urine and blood determined to be contaminant ankle pain Continue gabapentin to 200 mg b.i.d. Oxycodone 2.5 mg q.i.d. as needed MiraLax for constipation Will try to get textile bag sewer to help with cutting her toenails UTI finished antibiotic course hypotension asymptomatic, chronic Likely related to decrease body tune and being on beta-tony and?diuretics Chronic AFib Rate controlled on beta blockade Continue warfarin PT/ INR daily Chronic HFpEF Not in exacerbation Bumex dose decreased to 1 mg daily from 3 mg b.i.d. at home continue current therapies Psoriatic arthritis Pain medication as needed adjust as indicated left eye subconjuctval haemorrage asymptomatic, resolved VTE ppx warfarin inpatient need: pending LTC placement, safe disposition Quality Stroke Does the patient have a stroke diagnosis?: No VTE Prior VTE?: No VTE Risk Level:: Medical - moderate - high VTE Device Contraindication: Treatment Not Indicated VTE Drug Contraindication: Treatment Not Indicated
[2022-05-04 12:00] VITALS: BP 99/60; PULSE 85; RESP 18; TEMP 37.2; O2SAT 97
[2022-05-04 16:00] VITALS: BP 91/54; PULSE 71; RESP 18; TEMP 36.2; O2SAT 97
[2022-05-04] MEDS: Warfarin Sodium 3 MG TABLET PO (17:57)
[2022-05-04 19:46] VITALS: BP 104/57; PULSE 85; RESP 17; TEMP 36.2; O2SAT 95
[2022-05-04] MEDS: QUEtiapine Fumarate 25 MG TABLET 12.5 MG PO (22:00)
[2022-05-04 23:58] VITALS: BP 98/55; PULSE 76; RESP 17; TEMP 36.2; O2SAT 95
[2022-05-05] MEDS: oxyCODONE HCl Immed Release 5 MG TABLET 2.5 MG PO ×3 (01:54→16:12)
[2022-05-05 04:00] VITALS: BP 102/63; PULSE 67; RESP 17; TEMP 36.1; O2SAT 96
[2022-05-05 05:43] LABS: INTERNATIONAL NORM RATIO 2.2 (0.9-1.1); Prothrombin Time 26.6 SEC (10.0-13.1)
[2022-05-05 08:05] VITALS: BP 105/58; PULSE 84; RESP 21; TEMP 36.6; O2SAT 96
[2022-05-05] MEDS: Metoprolol Tartrate 12.5 MG HALFTAB PO ×2 (08:58→19:29)
[2022-05-05] MEDS: polyethylene glycoL 3350 17 GM POWD.PACK PO (08:58)
[2022-05-05] MEDS: Bumetanide 1 MG TABLET PO (08:58)
[2022-05-05] MEDS: Gabapentin 100 MG CAPSULE 200 MG PO ×2 (08:58→19:28)
[2022-05-05] MEDS: Escitalopram Oxalate 10 MG TABLET PO (08:58)
[2022-05-05] MEDS: Lidocaine 4 % Patch ADH..PATCH 1 PATCH TRANSDERMA (08:58)
[2022-05-05] MEDS: Acetaminophen 325 MG TABLET 650 MG PO (08:59)
--- NOTE | 2022-05-05 09:17 | HO.PM.IMPN ---
Subjective Subjective Date of Service: 05/05/22 Interval History: the patient was seen and evaluated this morning Laying? in bed, feels comfortable Reporting ankle pain , annoyed by her big toe nail No reported other overnight events. Systemic review: No fever, chills or weakness No chest pain, palpitation No shortness of breath or coughing No abdominal pain, nausea or vomiting No urinary symptoms No rash Physical Exam Vital Signs: Vital Signs: Last Vital Signs Temp 97.8 F 05/05/22 08:05 Pulse 84 05/05/22 08:05 Resp 21 H 05/05/22 08:05 BP 105/58 L 05/05/22 08:05 Pulse Ox 96 05/05/22 08:05 O2 Del Method 05/05/22 08:05 O2 Flow Rate 2 05/05/22 08:05 FiO2 99 02/22/22 03:47 BMI result Body Mass Index 28.9 Const: Other: Constitutional : Alert, interactive, not in distress Neck : Normal inspection, Supple Cardiovascular : RRR, no JVP, no lower extremity edema Respiratory : fair bilateral air entry,? no crackles, wheezes or rhonchi, on room air Gastrointestinal:? soft, lax, Normal bowel sounds, Non tender Skin : Warm, Dry skin, prolonged nails in her toes specially left big toe Extremities:? no erythema or swelling noted, chronic deformity to left ankle and foot Neurological : Alert & oriented to self and place, weaker on the left lower extremity Objective Data Active Medications Acetaminophen (Acetaminophen 325 Mg Tablet) 650 mg PO Q6H PRN PRN Reason: Pain, Mild (Pain Scale 1-3) Last Admin: 05/05/22 08:59 Dose: 650 mg Documented By: ASHELY Artificial Tears (Artificial Tears 15 Ml Drops) 1 drop EYE-BOTH Q4H PRN PRN Reason: Dry Eyes Bumetanide (Bumetanide 1 Mg Tablet) 1 mg PO DAILY [facility]; Protocol Last Admin: 05/05/22 08:58 Dose: 1 mg Documented By: ASHELY Escitalopram Oxalate (Escitalopram Oxalate 10 Mg Tablet) 10 mg PO DAILY [facility] Last Admin: 05/05/22 08:58 Dose: 10 mg Documented By: ASHELY Gabapentin (Gabapentin 100 Mg Capsule) 200 mg PO BID [facility] Last Admin: 05/05/22 08:58 Dose: 200 mg Documented By: ASHELY Lidocaine (Lidocaine 4 % Patch Adh..Patch) 1 patch TRANSDERMA DAILY [facility]; Protocol Last Admin: 05/05/22 08:58 Dose: 1 patch Documented By: ASHELY Metoprolol Tartrate (Metoprolol Tartrate 12.5 Mg Halftab) 12.5 mg PO BID [facility]; Protocol Last Admin: 05/05/22 08:58 Dose: 12.5 mg Documented By: ASHELY Nystatin (Nystatin Powder 15 Gm Bottle) 1 appl TOPICAL TID [facility]; Protocol Last Admin: 05/05/22 09:06 Dose: Not Given Documented By: ASHELY Non-Admin Reason: [place]ingo Ondansetron HCl (Ondansetron Odt 4 Mg Tab.Rapdis) 4 mg TRANSLINGU Q6H PRN PRN Reason: Nausea and Vomiting Last Admin: 04/03/22 04:51 Dose: 4 mg Documented By: DANE Oxycodone HCl (Oxycodone Hcl Immed Release 5 Mg Tablet) 2.5 mg PO Q6H PRN PRN Reason: Pain, Severe (Pain Scale 7-10) Last Admin: 05/05/22 08:57 Dose: 2.5 mg Documented By: ASHELY Pharmacy Consult (Consult Rx Perform Med Rec) 1 each MISCELLANE ONCE PRN PRN Reason: Consult order Polyethylene Glycol (Polyethylene Glycol 3350 17 Gm Powd.Pack) 17 gm PO DAILY PRN PRN Reason: constipation Last Admin: 04/26/22 10:58 Dose: 17 gm Documented By: SIERRA Polyethylene Glycol (Polyethylene Glycol 3350 17 Gm Powd.Pack) 17 gm PO DAILY [facility] Last Admin: 05/05/22 08:58 Dose: 17 gm Documented By: ASHELY Quetiapine Fumarate (Quetiapine Fumarate 25 Mg Tablet) 12.5 mg PO BID PRN PRN Reason: anxiety, agitation Last Admin: 05/04/22 22:00 Dose: 12.5 mg Documented By: MILLY Warfarin Sodium (Warfarin Sodium 3 Mg Tablet) 3 mg PO DAILY@1800 [facility] Last Admin: 05/04/22 17:57 Dose: 3 mg Documented By: DIMPLE Labs CBC & Chem 7: 04/30/22 05:02 04/30/22 05:02 Labs: Laboratory Results - last 24 hr 05/05/22 05:12 PT 26.6 H INR 2.2 H Assessment and Plan (1) Ankle pain: Status: Acute (2) Psoriatic arthritis: Status: Acute Plan 81yo F with AF (persistent?) + HFpEF, initially was awaiting for LTC placement but became hypotensive and had positive UA concerning for infection, though ultimately grew coag-neg staph from urine and blood determined to be contaminant ankle pain Continue gabapentin to 200 mg b.i.d. Oxycodone 2.5 mg q.i.d. as needed MiraLax for constipation Will try to get restorative art embalmer to help with cutting her toenails UTI finished antibiotic course hypotension asymptomatic, chronic Likely related to decrease body tune and being on beta-tony and?diuretics Chronic AFib Rate controlled on beta blockade Continue warfarin PT/ INR daily Chronic HFpEF Not in exacerbation Bumex dose decreased to 1 mg daily from 3 mg b.i.d. at home continue current therapies Psoriatic arthritis Pain medication as needed adjust as indicated left eye subconjuctval haemorrage asymptomatic, resolved VTE ppx warfarin inpatient need: pending LTC placement, safe disposition Quality Stroke Does the patient have a stroke diagnosis?: No VTE Prior VTE?: No VTE Risk Level:: Medical - moderate - high VTE Device Contraindication: Treatment Not Indicated VTE Drug Contraindication: Treatment Not Indicated
[2022-05-05 11:29] VITALS: BP 93/50; PULSE 80; RESP 20; TEMP 36.5; O2SAT 95
[2022-05-05 15:24] VITALS: BP 112/66; PULSE 90; RESP 18; TEMP 36.5; O2SAT 97
[2022-05-05] MEDS: Warfarin Sodium 3 MG TABLET PO (18:25)
[2022-05-05 19:05] VITALS: BP 96/63; PULSE 88; RESP 17; TEMP 36.5; O2SAT 95
[2022-05-05] MEDS: Nystatin Powder 15 GM BOTTLE 1 APPL TOPICAL (19:29)
[2022-05-05] MEDS: QUEtiapine Fumarate 25 MG TABLET 12.5 MG PO (21:01)
[2022-05-06] VITALS: BP 92/53; PULSE 88; RESP 17; TEMP 36.2; O2SAT 95
[2022-05-06 05:45] LABS: INTERNATIONAL NORM RATIO 2.4 (0.9-1.1); Prothrombin Time 28.7 SEC (10.0-13.1)
[2022-05-06] MEDS: Acetaminophen 325 MG TABLET 650 MG PO ×3 (07:11→23:02)
[2022-05-06] MEDS: Metoprolol Tartrate 12.5 MG HALFTAB PO ×2 (07:11→23:02)
[2022-05-06] MEDS: Escitalopram Oxalate 10 MG TABLET PO (07:11)
[2022-05-06] MEDS: Gabapentin 100 MG CAPSULE 200 MG PO ×2 (07:12→23:02)
[2022-05-06] MEDS: oxyCODONE HCl Immed Release 5 MG TABLET 2.5 MG PO ×3 (07:12→23:03)
[2022-05-06] MEDS: Bumetanide 1 MG TABLET PO (07:12)
[2022-05-06] MEDS: Lidocaine 4 % Patch ADH..PATCH 1 PATCH TRANSDERMA (07:13)
[2022-05-06] MEDS: polyethylene glycoL 3350 17 GM POWD.PACK PO (07:14)
[2022-05-06 07:33] VITALS: BP 91/51; PULSE 102; RESP 18; TEMP 36.7; O2SAT 92
--- NOTE | 2022-05-06 08:48 | HO.PM.IMPN ---
Subjective Subjective Date of Service: 05/06/22 Interval History: the patient was seen and evaluated this morning Laying? in bed, feels comfortable Reporting ankle pain , annoyed by her big toe nail No reported other overnight events. Systemic review: No fever, chills or weakness No chest pain, palpitation No shortness of breath or coughing No abdominal pain, nausea or vomiting No urinary symptoms No rash Physical Exam Vital Signs: Vital Signs: Last Vital Signs Temp 98.1 F 05/06/22 07:33 Pulse 102 H 05/06/22 07:33 Resp 18 05/06/22 07:33 BP 91/51 L 05/06/22 07:33 Pulse Ox 92 05/06/22 07:33 O2 Del Method 05/06/22 07:33 O2 Flow Rate 1 05/06/22 07:33 FiO2 99 02/22/22 03:47 BMI result Body Mass Index 28.9 Const: Other: Constitutional : Alert, interactive, not in distress Neck : Normal inspection, Supple Cardiovascular : RRR, no JVP, no lower extremity edema Respiratory : fair bilateral air entry,? no crackles, wheezes or rhonchi, on room air Gastrointestinal:? soft, lax, Normal bowel sounds, Non tender Skin : Warm, Dry skin, prolonged nails in her toes specially left big toe Extremities:? no erythema or swelling noted, chronic deformity to left ankle and foot Neurological : Alert & oriented to self and place, weaker on the left lower extremity Objective Data Active Medications Acetaminophen (Acetaminophen 325 Mg Tablet) 650 mg PO Q6H PRN PRN Reason: Pain, Mild (Pain Scale 1-3) Last Admin: 05/06/22 07:11 Dose: 650 mg Documented By: ASHELY Artificial Tears (Artificial Tears 15 Ml Drops) 1 drop EYE-BOTH Q4H PRN PRN Reason: Dry Eyes Bumetanide (Bumetanide 1 Mg Tablet) 1 mg PO DAILY [facility]; Protocol Last Admin: 05/06/22 07:12 Dose: 1 mg Documented By: ASHELY Escitalopram Oxalate (Escitalopram Oxalate 10 Mg Tablet) 10 mg PO DAILY [facility] Last Admin: 05/06/22 07:11 Dose: 10 mg Documented By: ASHELY Gabapentin (Gabapentin 100 Mg Capsule) 200 mg PO BID [facility] Last Admin: 05/06/22 07:12 Dose: 200 mg Documented By: ASHELY Lidocaine (Lidocaine 4 % Patch Adh..Patch) 1 patch TRANSDERMA DAILY [facility]; Protocol Last Admin: 05/06/22 07:13 Dose: 1 patch Documented By: ASHELY Metoprolol Tartrate (Metoprolol Tartrate 12.5 Mg Halftab) 12.5 mg PO BID [facility]; Protocol Last Admin: 05/06/22 07:11 Dose: 12.5 mg Documented By: ASHELY Nystatin (Nystatin Powder 15 Gm Bottle) 1 appl TOPICAL TID [facility]; Protocol Last Admin: 05/06/22 07:20 Dose: Not Given Documented By: ASHELY Non-Admin Reason: Administered by Alternate Route Ondansetron HCl (Ondansetron Odt 4 Mg Tab.Rapdis) 4 mg TRANSLINGU Q6H PRN PRN Reason: Nausea and Vomiting Last Admin: 04/03/22 04:51 Dose: 4 mg Documented By: DANE Oxycodone HCl (Oxycodone Hcl Immed Release 5 Mg Tablet) 2.5 mg PO Q6H PRN PRN Reason: Pain, Severe (Pain Scale 7-10) Last Admin: 05/06/22 07:12 Dose: 2.5 mg Documented By: ASHELY Pharmacy Consult (Consult Rx Perform Med Rec) 1 each MISCELLANE ONCE PRN PRN Reason: Consult order Polyethylene Glycol (Polyethylene Glycol 3350 17 Gm Powd.Pack) 17 gm PO DAILY PRN PRN Reason: constipation Last Admin: 04/26/22 10:58 Dose: 17 gm Documented By: SIERRA Polyethylene Glycol (Polyethylene Glycol 3350 17 Gm Powd.Pack) 17 gm PO DAILY [facility] Last Admin: 05/06/22 07:14 Dose: 17 gm Documented By: ASHELY Quetiapine Fumarate (Quetiapine Fumarate 25 Mg Tablet) 12.5 mg PO BID PRN PRN Reason: anxiety, agitation Last Admin: 05/05/22 21:01 Dose: 12.5 mg Documented By: DANE Warfarin Sodium (Warfarin Sodium 3 Mg Tablet) 3 mg PO DAILY@1800 [facility] Last Admin: 05/05/22 18:25 Dose: 3 mg Documented By: MAJO Labs CBC & Chem 7: 04/30/22 05:02 04/30/22 05:02 Labs: Laboratory Results - last 24 hr 05/06/22 05:11 PT 28.7 H INR 2.4 H Assessment and Plan (1) Ankle pain: Status: Acute (2) Psoriatic arthritis: Status: Acute Plan 81yo F with AF (persistent?) + HFpEF, initially was awaiting for LTC placement but became hypotensive and had positive UA concerning for infection, though ultimately grew coag-neg staph from urine and blood determined to be contaminant ankle pain Continue gabapentin to 200 mg b.i.d. Oxycodone 2.5 mg q.i.d. as needed MiraLax for constipation Will try to get ecology professor to help with cutting her toenails UTI finished antibiotic course hypotension asymptomatic, chronic Likely related to decrease body tune and being on beta-tony and?diuretics Chronic AFib Rate controlled on beta blockade Continue warfarin PT/ INR daily Chronic HFpEF Not in exacerbation Bumex dose decreased to 1 mg daily from 3 mg b.i.d. at home continue current therapies Psoriatic arthritis Pain medication as needed adjust as indicated left eye subconjuctval haemorrage asymptomatic, resolved VTE ppx warfarin inpatient need: pending LTC placement, safe disposition Quality Stroke Does the patient have a stroke diagnosis?: No VTE Prior VTE?: No VTE Risk Level:: Medical - moderate - high VTE Device Contraindication: Treatment Not Indicated VTE Drug Contraindication: Treatment Not Indicated
[2022-05-06 11:28] VITALS: BP 106/51; PULSE 77; RESP 18; TEMP 36.2; O2SAT 92
[2022-05-06 15:08] VITALS: BP 114/64; PULSE 113; RESP 18; TEMP 36.6; O2SAT 96
[2022-05-06] MEDS: Warfarin Sodium 3 MG TABLET PO (18:30)
[2022-05-06 19:10] VITALS: BP 129/52; PULSE 104; RESP 17; TEMP 36.5; O2SAT 97
[2022-05-06] MEDS: Nystatin Powder 15 GM BOTTLE 1 APPL TOPICAL (23:07)
[2022-05-06 23:42] VITALS: BP 102/55; PULSE 89; RESP 18; TEMP 37.1; O2SAT 92
[2022-05-07 03:46] VITALS: BP 107/65; PULSE 84; RESP 18; TEMP 37.1; O2SAT 97
[2022-05-07 07:39] VITALS: BP 110/58; PULSE 85; RESP 18; TEMP 35.8; O2SAT 97
[2022-05-07 08:41] LABS: INTERNATIONAL NORM RATIO 2.8 (0.9-1.1)
[2022-05-07] MEDS: Acetaminophen 325 MG TABLET 650 MG PO ×2 (09:04→16:25)
[2022-05-07] MEDS: oxyCODONE HCl Immed Release 5 MG TABLET 2.5 MG PO ×3 (09:04→21:55)
[2022-05-07] MEDS: Metoprolol Tartrate 12.5 MG HALFTAB PO ×2 (09:05→21:55)
[2022-05-07] MEDS: polyethylene glycoL 3350 17 GM POWD.PACK PO (09:05)
[2022-05-07] MEDS: Gabapentin 100 MG CAPSULE 200 MG PO ×2 (09:05→21:55)
[2022-05-07] MEDS: Bumetanide 1 MG TABLET PO (09:05)
[2022-05-07] MEDS: Escitalopram Oxalate 10 MG TABLET PO (09:05)
[2022-05-07] MEDS: Lidocaine 4 % Patch ADH..PATCH 1 PATCH TRANSDERMA (09:09)
--- NOTE | 2022-05-07 09:53 | MHC.CLN ---
F/U DIET=CARDIAC. INTAKE AT MEALS USUALLY VERY GOOD, 75-100%. SUPPLEMENT DISCONTINUED PER PATIENT REQUEST. SKIN: HEALING STAGE II TO BUTTOCKS. CONTINUE TO FOLLOW FOR INTAKE. RD TO FOLLOW WEEKLY.
[2022-05-07 11:11] VITALS: BP 108/58; PULSE 80; RESP 18; TEMP 36.9; O2SAT 94
--- NOTE | 2022-05-07 13:32 | HO.PM.IMPN ---
Subjective Subjective Date of Service: 05/07/22 Interval History: the patient was seen and evaluated this morning Laying? in bed, reported being bed ridden and not getting out of the bed Reporting ankle pain , annoyed by her big toe nail No reported other overnight events. Systemic review: No fever, chills or weakness No chest pain, palpitation No shortness of breath or coughing No abdominal pain, nausea or vomiting No urinary symptoms No rash Physical Exam Vital Signs: Vital Signs: Last Vital Signs Temp 98.5 F 05/07/22 11:11 Pulse 80 05/07/22 11:11 Resp 18 05/07/22 11:11 BP 108/58 L 05/07/22 11:11 Pulse Ox 94 05/07/22 11:11 O2 Del Method 05/07/22 11:11 O2 Flow Rate 2 05/07/22 11:11 FiO2 99 02/22/22 03:47 BMI result Body Mass Index 28.9 Const: Other: Constitutional : Alert, interactive, not in distress Neck : Normal inspection, Supple Cardiovascular : RRR, no JVP, no lower extremity edema Respiratory : fair bilateral air entry,? no crackles, wheezes or rhonchi, on room air Gastrointestinal:? soft, lax, Normal bowel sounds, Non tender Skin : Warm, Dry skin, long nails in her toes specially left big toe Extremities:? no erythema or swelling noted, chronic deformity to left ankle and foot Neurological : Alert & oriented to self and place, weaker on the left lower extremity Objective Data Active Medications Acetaminophen (Acetaminophen 325 Mg Tablet) 650 mg PO Q6H PRN PRN Reason: Pain, Mild (Pain Scale 1-3) Last Admin: 05/07/22 09:04 Dose: 650 mg Documented By: ASHELY Artificial Tears (Artificial Tears 15 Ml Drops) 1 drop EYE-BOTH Q4H PRN PRN Reason: Dry Eyes Bumetanide (Bumetanide 1 Mg Tablet) 1 mg PO DAILY [facility]; Protocol Last Admin: 05/07/22 09:05 Dose: 1 mg Documented By: ASHELY Escitalopram Oxalate (Escitalopram Oxalate 10 Mg Tablet) 10 mg PO DAILY [facility] Last Admin: 05/07/22 09:05 Dose: 10 mg Documented By: ASHELY Gabapentin (Gabapentin 100 Mg Capsule) 200 mg PO BID [facility] Last Admin: 05/07/22 09:05 Dose: 200 mg Documented By: ASHELY Lidocaine (Lidocaine 4 % Patch Adh..Patch) 1 patch TRANSDERMA DAILY [facility]; Protocol Last Admin: 05/07/22 09:09 Dose: 1 patch Documented By: ASHELY Metoprolol Tartrate (Metoprolol Tartrate 12.5 Mg Halftab) 12.5 mg PO BID [facility]; Protocol Last Admin: 05/07/22 09:05 Dose: 12.5 mg Documented By: ASHELY Nystatin (Nystatin Powder 15 Gm Bottle) 1 appl TOPICAL TID [facility]; Protocol Last Admin: 05/07/22 10:20 Dose: Not Given Documented By: ASHELY Non-Admin Reason: n/a Ondansetron HCl (Ondansetron Odt 4 Mg Tab.Rapdis) 4 mg TRANSLINGU Q6H PRN PRN Reason: Nausea and Vomiting Last Admin: 04/03/22 04:51 Dose: 4 mg Documented By: DANE Oxycodone HCl (Oxycodone Hcl Immed Release 5 Mg Tablet) 2.5 mg PO Q6H PRN PRN Reason: Pain, Severe (Pain Scale 7-10) Last Admin: 05/07/22 09:04 Dose: 2.5 mg Documented By: ASHELY Pharmacy Consult (Consult Rx Perform Med Rec) 1 each MISCELLANE ONCE PRN PRN Reason: Consult order Polyethylene Glycol (Polyethylene Glycol 3350 17 Gm Powd.Pack) 17 gm PO DAILY PRN PRN Reason: constipation Last Admin: 04/26/22 10:58 Dose: 17 gm Documented By: SIERRA Polyethylene Glycol (Polyethylene Glycol 3350 17 Gm Powd.Pack) 17 gm PO DAILY [facility] Last Admin: 05/07/22 09:05 Dose: 17 gm Documented By: ASHELY Quetiapine Fumarate (Quetiapine Fumarate 25 Mg Tablet) 12.5 mg PO BID PRN PRN Reason: anxiety, agitation Last Admin: 05/05/22 21:01 Dose: 12.5 mg Documented By: DANE Warfarin Sodium (Warfarin Sodium 3 Mg Tablet) 3 mg PO DAILY@1800 [facility] Last Admin: 05/06/22 18:30 Dose: 3 mg Documented By: SHAN Labs CBC & Chem 7: 04/30/22 05:02 04/30/22 05:02 Labs: Laboratory Results - last 24 hr 05/07/22 08:09 PT 33.0 H INR 2.8 H Assessment and Plan (1) Psoriatic arthritis: Status: Acute (2) Chronic heart failure: Status: Acute Plan 81yo F with AF (persistent?) + HFpEF, initially was awaiting for LTC placement but became hypotensive and had positive UA concerning for infection, though ultimately grew coag-neg staph from urine and blood determined to be contaminant ankle pain Continue gabapentin to 200 mg b.i.d. Oxycodone 2.5 mg q.i.d. as needed MiraLax for constipation No available sales and marketing associate to help with cutting her toenails UTI finished antibiotic course hypotension asymptomatic, chronic Likely related to decrease body tune and being on beta-tony and?diuretics Chronic AFib Rate controlled on beta blockade Continue warfarin PT/ INR daily Chronic HFpEF Not in exacerbation Bumex dose decreased to 1 mg daily from 3 mg b.i.d. at home continue current therapies Psoriatic arthritis Pain medication as needed adjust as indicated left eye subconjuctval haemorrage asymptomatic, resolved VTE ppx warfarin inpatient need: pending LTC placement, safe disposition Quality Stroke Does the patient have a stroke diagnosis?: No VTE Prior VTE?: No VTE Risk Level:: Medical - moderate - high VTE Device Contraindication: Treatment Not Indicated VTE Drug Contraindication: Treatment Not Indicated
[2022-05-07 16:00] VITALS: BP 124/64; PULSE 90; RESP 18; TEMP 36.9; O2SAT 99
[2022-05-07] MEDS: Nystatin Powder 15 GM BOTTLE 1 APPL TOPICAL ×2 (16:24→21:57)
[2022-05-07] MEDS: Warfarin Sodium 3 MG TABLET PO (18:03)
[2022-05-07 20:00] VITALS: BP 113/70; PULSE 107; RESP 17; TEMP 36.5; O2SAT 93
[2022-05-08] VITALS: BP 101/62; PULSE 74; RESP 17; TEMP 36.2; O2SAT 99
[2022-05-08 04:00] VITALS: BP 103/58; PULSE 79; RESP 17; TEMP 36.2; O2SAT 98
[2022-05-08 07:16] VITALS: BP 138/83; PULSE 91; RESP 16; TEMP 36.1; O2SAT 98
[2022-05-08] MEDS: Acetaminophen 325 MG TABLET 650 MG PO (07:32)
[2022-05-08 09:15] LABS: INTERNATIONAL NORM RATIO 3.4 (0.9-1.1); Prothrombin Time 41.1 SEC (10.0-13.1)
[2022-05-08] MEDS: Gabapentin 100 MG CAPSULE 200 MG PO ×2 (09:41→21:14)
[2022-05-08] MEDS: Lidocaine 4 % Patch ADH..PATCH 1 PATCH TRANSDERMA (09:41)
[2022-05-08] MEDS: Metoprolol Tartrate 12.5 MG HALFTAB PO ×2 (09:41→21:14)
[2022-05-08] MEDS: polyethylene glycoL 3350 17 GM POWD.PACK PO (09:42)
[2022-05-08] MEDS: Bumetanide 1 MG TABLET PO (09:42)
[2022-05-08] MEDS: Escitalopram Oxalate 10 MG TABLET PO (09:42)
[2022-05-08] MEDS: Docusate Sodium 100 MG CAPSULE PO ×2 (09:42→21:14)
[2022-05-08] MEDS: oxyCODONE HCl Immed Release 5 MG TABLET 2.5 MG PO ×3 (09:42→22:47)
[2022-05-08] MEDS: Nystatin Powder 15 GM BOTTLE 1 APPL TOPICAL ×3 (09:43→21:15)
--- NOTE | 2022-05-08 10:30 | P.PNIM_ITS ---
Subjective Subjective Date of Service: 05/08/22 Interval History: the patient was seen and evaluated this morning Laying? in bed, not getting out of the bed, Reporting ankle pain No reported other overnight events. Systemic review: No fever, chills or weakness No chest pain, palpitation No shortness of breath or coughing No abdominal pain, nausea or vomiting No urinary symptoms No rash Physical Exam Vital Signs: Vital Signs: Last Vital Signs Temp 96.9 F 05/08/22 07:16 Pulse 91 05/08/22 07:16 Resp 16 05/08/22 07:16 BP 138/83 05/08/22 07:16 Pulse Ox 98 05/08/22 07:16 O2 Del Method 05/08/22 07:16 O2 Flow Rate 1 05/08/22 07:16 FiO2 99 02/22/22 03:47 BMI result Body Mass Index 28.9 Const: Other: Constitutional : Alert, interactive, not in distress Neck : Normal inspection, Supple Cardiovascular : RRR, no JVP, no lower extremity edema Respiratory : fair bilateral air entry,? no crackles, wheezes or rhonchi, on ro om air Gastrointestinal:? soft, lax, Normal bowel sounds, Non tender Skin : Warm, Dry skin, long nails in her toes specially left big toe Extremities:? no erythema or swelling noted, chronic deformity to left ankle and foot Neurological : Alert & oriented to self and place, weaker on the left lower extremity Objective Data Active Medications Acetaminophen (Acetaminophen 325 Mg Tablet) 650 mg PO Q6H PRN PRN Reason: Pain, Mild (Pain Scale 1-3) Last Admin: 05/08/22 07:32 Dose: 650 mg Documented By: MITCH Artificial Tears (Artificial Tears 15 Ml Drops) 1 drop EYE-BOTH Q4H PRN PRN Reason: Dry Eyes Bumetanide (Bumetanide 1 Mg Tablet) 1 mg PO DAILY [facility]; Protocol Last Admin: 05/08/22 09:42 Dose: 1 mg Documented By: SHARRI Docusate Sodium (Docusate Sodium 100 Mg Capsule) 100 mg PO BID [facility] Last Admin: 05/08/22 09:42 Dose: 100 mg Documented By: SHARRI Escitalopram Oxalate (Escitalopram Oxalate 10 Mg Tablet) 10 mg PO DAILY [facility] Last Admin: 05/08/22 09:42 Dose: 10 mg Documented By: SHARRI Gabapentin (Gabapentin 100 Mg Capsule) 200 mg PO BID [facility] Last Admin: 05/08/22 09:41 Dose: 200 mg Documented By: SHARRI Lidocaine (Lidocaine 4 % Patch Adh..Patch) 1 patch TRANSDERMA DAILY [facility]; Protocol Last Admin: 05/08/22 09:41 Dose: 1 patch Documented By: SHARRI Metoprolol Tartrate (Metoprolol Tartrate 12.5 Mg Halftab) 12.5 mg PO BID [facility]; Protocol Last Admin: 05/08/22 09:41 Dose: 12.5 mg Documented By: SHARRI Nystatin (Nystatin Powder 15 Gm Bottle) 1 appl TOPICAL TID [facility]; Protocol Last Admin: 05/08/22 09:43 Dose: 1 appl Documented By: SHARRI Ondansetron HCl (Ondansetron Odt 4 Mg Tab.Rapdis) 4 mg TRANSLINGU Q6H PRN PRN Reason: Nausea and Vomiting Last Admin: 04/03/22 04:51 Dose: 4 mg Documented By: DANE Oxycodone HCl (Oxycodone Hcl Immed Release 5 Mg Tablet) 2.5 mg PO Q6H PRN PRN Reason: Pain, Severe (Pain Scale 7-10) Last Admin: 05/08/22 09:42 Dose: 2.5 mg Documented By: SHARRI Pharmacy Consult (Consult Rx Perform Med Rec) 1 each MISCELLANE ONCE PRN PRN Reason: Consult order Polyethylene Glycol (Polyethylene Glycol 3350 17 Gm Powd.Pack) 17 gm PO DAILY PRN PRN Reason: constipation Last Admin: 04/26/22 10:58 Dose: 17 gm Documented By: SIERRA Polyethylene Glycol (Polyethylene Glycol 3350 17 Gm Powd.Pack) 17 gm PO DAILY [facility] Last Admin: 05/08/22 09:42 Dose: 17 gm Documented By: SHARRI Quetiapine Fumarate (Quetiapine Fumarate 25 Mg Tablet) 12.5 mg PO BID PRN PRN Reason: anxiety, agitation Last Admin: 05/05/22 21:01 Dose: 12.5 mg Documented By: DANE Warfarin Sodium (Warfarin Sodium 3 Mg Tablet) 3 mg PO DAILY@1800 [facility] Last Admin: 05/07/22 18:03 Dose: 3 mg Documented By: HO.BEIT Labs CBC & Chem 7: 04/30/22 05:02 04/30/22 05:02 Labs: Laboratory Results - last 24 hr 05/08/22 08:55 PT 41.1 H INR 3.4 H Assessment and Plan (1) Psoriatic arthritis: Status: Acute (2) Ankle pain: Status: Acute Plan 81yo F with AF (persistent?) + HFpEF, initially was awaiting for LTC placement but became hypotensive and had positive UA concerning for infection, though ultimately grew coag-neg staph from urine and blood determined to be contaminant ankle pain Continue gabapentin to 200 mg b.i.d. Oxycodone 2.5 mg q.i.d. as needed MiraLax for constipation No available anhydrous ammonia production supervisor to help with cutting her toenails UTI finished antibiotic course hypotension asymptomatic, chronic Likely related to decrease body tune and being on beta-tony and?diuretics Chronic AFib Rate controlled on beta blockade Continue warfarin PT/ INR daily Chronic HFpEF Not in exacerbation Bumex dose decreased to 1 mg daily from 3 mg b.i.d. at home continue current therapies Psoriatic arthritis Pain medication as needed adjust as indicated left eye subconjuctval haemorrage asymptomatic, resolved VTE ppx warfarin inpatient need: pending LTC placement, safe disposition Quality Stroke Does the patient have a stroke diagnosis?: No VTE Prior VTE?: No VTE Risk Level:: Medical - moderate - high VTE Device Contraindication: Treatment Not Indicated VTE Drug Contraindication: Treatment Not Indicated
[2022-05-08 11:09] VITALS: BP 117/60; PULSE 74; RESP 18; TEMP 36.7; O2SAT 98
[2022-05-08] MEDS: bisacodyL 10 MG SUPP.RECT PR (12:59)
[2022-05-08 15:58] VITALS: BP 104/57; PULSE 106; RESP 20; TEMP 36.6; O2SAT 96
[2022-05-08 19:39] VITALS: BP 94/56; PULSE 93; RESP 18; TEMP 36.5; O2SAT 98
[2022-05-09] VITALS (7 sets, daily range): BP systolic 93–116; BP diastolic 53–73; PULSE 62–99; RESP 15–18; TEMP 36.2–36.5; O2SAT 95–99
[2022-05-09] MEDS: QUEtiapine Fumarate 25 MG TABLET 12.5 MG PO ×2 (01:26→22:11)
[2022-05-09 06:16] LABS: INTERNATIONAL NORM RATIO 3.6 (0.9-1.1)
[2022-05-09] MEDS: Metoprolol Tartrate 12.5 MG HALFTAB PO ×2 (09:04→21:32)
[2022-05-09] MEDS: Bumetanide 1 MG TABLET PO (09:04)
[2022-05-09] MEDS: Gabapentin 100 MG CAPSULE 200 MG PO ×2 (09:04→21:32)
[2022-05-09] MEDS: Escitalopram Oxalate 10 MG TABLET PO (09:04)
[2022-05-09] MEDS: Docusate Sodium 100 MG CAPSULE PO ×2 (09:04→21:32)
[2022-05-09] MEDS: Lidocaine 4 % Patch ADH..PATCH 1 PATCH TRANSDERMA (09:05)
[2022-05-09] MEDS: polyethylene glycoL 3350 17 GM POWD.PACK PO (09:05)
[2022-05-09] MEDS: Nystatin Powder 15 GM BOTTLE 1 APPL TOPICAL ×3 (09:33→21:33)
--- NOTE | 2022-05-09 14:32 | MHC.CM.PN ---
EMR REVIEWED, PT REMAINS MEDICALLY STABLE FOR D/C, PER FS BANK STATEMENTS RECEIVED AND FAXED TO ON 05/27, PT HAS BEEN ASSIGNED A JEWELRY SORTER ENRIQUE BIANCHI FROM THE [place] OFFICE, FS AWAITING UPDATE FROM ENRIQUE. CM WILL CONT LTC BED SEARCH AND FOLLOW D/C NEEDS.
--- NOTE | 2022-05-09 16:15 | P.PNIM_ITS ---
Subjective Subjective Date of Service: 05/09/22 Interval History: the patient was seen and evaluated this morning Laying? in bed, Reporting ankle pain No reported other overnight events. Systemic review: No fever, chills or weakness No chest pain, palpitation No shortness of breath or coughing No abdominal pain, nausea or vomiting No urinary symptoms No rash Physical Exam Vital Signs: Vital Signs: Last Vital Signs Temp 97.6 F 05/09/22 15:25 Pulse 92 05/09/22 15:25 Resp 18 05/09/22 15:25 BP 116/57 L 05/09/22 15:25 Pulse Ox 98 05/09/22 15:25 O2 Del Method 05/09/22 15:25 O2 Flow Rate 3 05/09/22 15:25 FiO2 99 02/22/22 03:47 BMI result Body Mass Index 28.9 Const: Other: Constitutional : Alert, interactive, not in distress Neck : Normal inspection, Supple Cardiovascular : RRR, no JVP, no lower extremity edema Respiratory : fair bilateral air entry,? no crackles, wheezes or rhonchi, on room air Gastrointestinal:? soft, lax, Normal bowel sounds, Non tender Skin : Warm, Dry skin, long nails in her toes specially left big toe Extremities:? no erythema or swelling noted, chronic deformity to left ankle and foot Neurological : Alert & oriented to self and place, weaker on the left lower extremity Objective Data Active Medications Acetaminophen (Acetaminophen 325 Mg Tablet) 650 mg PO Q6H PRN PRN Reason: Pain, Mild (Pain Scale 1-3) Last Admin: 05/08/22 07:32 Dose: 650 mg Documented By: MITCH Artificial Tears (Artificial Tears 15 Ml Drops) 1 drop EYE-BOTH Q4H PRN PRN Reason: Dry Eyes Bumetanide (Bumetanide 1 Mg Tablet) 1 mg PO DAILY [facility]; Protocol Last Admin: 05/09/22 09:04 Dose: 1 mg Documented By: DIMPLE Docusate Sodium (Docusate Sodium 100 Mg Capsule) 100 mg PO BID [facility] Last Admin: 05/09/22 09:04 Dose: 100 mg Documented By: DIMPLE Escitalopram Oxalate (Escitalopram Oxalate 10 Mg Tablet) 10 mg PO DAILY [facility] Last Admin: 05/09/22 09:04 Dose: 10 mg Documented By: DIMPLE Gabapentin (Gabapentin 100 Mg Capsule) 200 mg PO BID [facility] Last Admin: 05/09/22 09:04 Dose: 200 mg Documented By: DIMPLE Lidocaine (Lidocaine 4 % Patch Adh..Patch) 1 patch TRANSDERMA DAILY [facility]; Protocol Last Admin: 05/09/22 09:05 Dose: 1 patch Documented By: DIMPLE Metoprolol Tartrate (Metoprolol Tartrate 12.5 Mg Halftab) 12.5 mg PO BID [facility]; Protocol Last Admin: 05/09/22 09:04 Dose: 12.5 mg Documented By: DIMPLE Nystatin (Nystatin Powder 15 Gm Bottle) 1 appl TOPICAL TID [facility]; Protocol Last Admin: 05/09/22 09:33 Dose: 1 appl Documented By: DIMPLE Ondansetron HCl (Ondansetron Odt 4 Mg Tab.Rapdis) 4 mg TRANSLINGU Q6H PRN PRN Reason: Nausea and Vomiting Last Admin: 04/03/22 04:51 Dose: 4 mg Documented By: DANE Oxycodone HCl (Oxycodone Hcl Immed Release 5 Mg Tablet) 2.5 mg PO Q6H PRN PRN Reason: Pain, Severe (Pain Scale 7-10) Last Admin: 05/08/22 22:47 Dose: 2.5 mg Documented By: JASON Pharmacy Consult (Consult Rx Perform Med Rec) 1 each MISCELLANE ONCE PRN PRN Reason: Consult order Polyethylene Glycol (Polyethylene Glycol 3350 17 Gm Powd.Pack) 17 gm PO DAILY PRN PRN Reason: constipation Last Admin: 04/26/22 10:58 Dose: 17 gm Documented By: SIERRA Polyethylene Glycol (Polyethylene Glycol 3350 17 Gm Powd.Pack) 17 gm PO DAILY [facility] Last Admin: 05/09/22 09:05 Dose: 17 gm Documented By: DIMPLE Quetiapine Fumarate (Quetiapine Fumarate 25 Mg Tablet) 12.5 mg PO BID PRN PRN Reason: anxiety, agitation Last Admin: 05/09/22 01:26 Dose: 12.5 mg Documented By: JASON Warfarin Sodium (Warfarin Sodium 3 Mg Tablet) 3 mg PO DAILY@1800 [facility] Last Admin: 05/07/22 18:03 Dose: 3 mg Documented By: HOLLY Labs CBC & Chem 7: 04/30/22 05:02 04/30/22 05:02 Labs: Laboratory Results - last 24 hr 05/09/22 05:52 PT 43.0 H INR 3.6 H Assessment and Plan (1) Ankle pain: Status: Acute (2) Chronic heart failure: Status: Acute Plan 81yo F with AF (persistent?) + HFpEF, initially was awaiting for LTC placement but became hypotensive and had positive UA concerning for infection, though ultimately grew coag-neg staph from urine and blood determined to be contaminant ankle pain Continue gabapentin to 200 mg b.i.d. Oxycodone 2.5 mg q.i.d. as needed MiraLax for constipation No available herpetologist to help with cutting her toenails UTI finished antibiotic course hypotension asymptomatic, chronic Likely related to decrease body tune and being on beta-tony and?diuretics Chronic AFib Rate controlled on beta blockade Continue warfarin PT/ INR daily Chronic HFpEF Not in exacerbation Bumex dose decreased to 1 mg daily from 3 mg b.i.d. at home continue current therapies Psoriatic arthritis Pain medication as needed adjust as indicated left eye subconjuctval haemorrage asymptomatic, resolved VTE ppx warfarin inpatient need: pending LTC placement, safe disposition Quality Stroke Does the patient have a stroke diagnosis?: No VTE Prior VTE?: No VTE Risk Level:: Medical - moderate - high VTE Device Contraindication: Treatment Not Indicated VTE Drug Contraindication: Treatment Not Indicated
[2022-05-09] MEDS: oxyCODONE HCl Immed Release 5 MG TABLET 2.5 MG PO ×2 (16:36→22:09)
[2022-05-10 03:55] VITALS: BP 122/71; PULSE 100; RESP 15; TEMP 36.4; O2SAT 97
[2022-05-10 05:35] LABS: INTERNATIONAL NORM RATIO 3.2 (0.9-1.1); Prothrombin Time 38.2 SEC (10.0-13.1)
[2022-05-10 08:00] VITALS: BP 113/63; PULSE 66; RESP 16; TEMP 37.2; O2SAT 93
[2022-05-10 09:14] LABS: Blood Urea Nitrogen 21 mg/dL (9-16); Calcium 8.5 mg/dL (8.4-10.2); Creatinine Clr Calc Pharmacy 68.1; Estimated Glomerular Filt Rate > 60; Glucose Random 109 mg/dL (60-115)
[2022-05-10 09:35] LABS: Anion Gap 13 (12-20); Carbon Dioxide 41 mmol/L (22-29); Chloride 96 mmol/L (96-108); Potassium 4.1 mmol/L (3.3-5.1); Sodium 146 mmol/L (135-145)
[2022-05-10 11:30] VITALS: BP 113/60; PULSE 90
[2022-05-10] MEDS: Gabapentin 100 MG CAPSULE 200 MG PO ×2 (11:31→20:55)
[2022-05-10] MEDS: Metoprolol Tartrate 12.5 MG HALFTAB PO ×2 (11:31→20:55)
[2022-05-10] MEDS: Docusate Sodium 100 MG CAPSULE PO ×2 (11:32→20:55)
[2022-05-10] MEDS: polyethylene glycoL 3350 17 GM POWD.PACK PO (11:32)
[2022-05-10] MEDS: Escitalopram Oxalate 10 MG TABLET PO (11:32)
--- NOTE | 2022-05-10 11:32 | P.PNIM_ITS ---
Subjective Subjective Date of Service: 05/10/22 Interval History: the patient was seen and evaluated this morning Laying? in bed, Reporting ankle pain Noted to have traction alkalosis with elevated sodium levels No reported other overnight events. Systemic review: No fever, chills or weakness No chest pain, palpitation No shortness of breath or coughing No abdominal pain, nausea or vomiting No urinary symptoms No rash Physical Exam Vital Signs: Vital Signs: Last Vital Signs Temp 98.9 F 05/10/22 08:00 Pulse 90 05/10/22 11:30 Resp 16 05/10/22 08:00 BP 113/60 05/10/22 11:30 Pulse Ox 93 05/10/22 08:00 O2 Del Method 05/10/22 08:00 O2 Flow Rate 3 05/10/22 08:00 FiO2 99 02/22/22 03:47 BMI result Body Mass Index 28.9 Const: Other: Constitutional : Alert, interactive, not in distress Neck : Normal inspection, Supple Cardiovascular : RRR, no JVP, no lower extremity edema Respiratory : fair bilateral air entry,? no crackles, wheezes or rhonchi, on room air Gastrointestinal:? soft, lax, Normal bowel sounds, Non tender Skin : Warm, Dry skin, long nails in her toes specially left big toe Extremities:? no erythema or swelling noted, chronic deformity to left ankle and foot Neurological : Alert & oriented to self and place, weaker on the left lower extremity Objective Data Active Medications Acetaminophen (Acetaminophen 325 Mg Tablet) 650 mg PO Q6H PRN PRN Reason: Pain, Mild (Pain Scale 1-3) Last Admin: 05/08/22 07:32 Dose: 650 mg Documented By: MITCH Artificial Tears (Artificial Tears 15 Ml Drops) 1 drop EYE-BOTH Q4H PRN PRN Reason: Dry Eyes Bumetanide (Bumetanide 1 Mg Tablet) 1 mg PO DAILY [facility]; Protocol Last Admin: 05/09/22 09:04 Dose: 1 mg Documented By: DIMPLE Docusate Sodium (Docusate Sodium 100 Mg Capsule) 100 mg PO BID [facility] Last Admin: 05/09/22 21:32 Dose: 100 mg Documented By: JASON Escitalopram Oxalate (Escitalopram Oxalate 10 Mg Tablet) 10 mg PO DAILY [facility] Last Admin: 05/09/22 09:04 Dose: 10 mg Documented By: DIMPLE Gabapentin (Gabapentin 100 Mg Capsule) 200 mg PO BID [facility] Last Admin: 05/09/22 21:32 Dose: 200 mg Documented By: JASON Lidocaine (Lidocaine 4 % Patch Adh..Patch) 1 patch TRANSDERMA DAILY [facility]; Protocol Last Admin: 05/09/22 09:05 Dose: 1 patch Documented By: DIMPLE Metoprolol Tartrate (Metoprolol Tartrate 12.5 Mg Halftab) 12.5 mg PO BID [facility]; Protocol Last Admin: 05/09/22 21:32 Dose: 12.5 mg Documented By: JASON Nystatin (Nystatin Powder 15 Gm Bottle) 1 appl TOPICAL TID [facility]; Protocol Last Admin: 05/09/22 21:33 Dose: 1 appl Documented By: JASON Ondansetron HCl (Ondansetron Odt 4 Mg Tab.Rapdis) 4 mg TRANSLINGU Q6H PRN PRN Reason: Nausea and Vomiting Last Admin: 04/03/22 04:51 Dose: 4 mg Documented By: DANE Oxycodone HCl (Oxycodone Hcl Immed Release 5 Mg Tablet) 2.5 mg PO Q6H PRN PRN Reason: Pain, Severe (Pain Scale 7-10) Last Admin: 05/09/22 22:09 Dose: 2.5 mg Documented By: JASON Pharmacy Consult (Consult Rx Perform Med Rec) 1 each MISCELLANE ONCE PRN PRN Reason: Consult order Polyethylene Glycol (Polyethylene Glycol 3350 17 Gm Powd.Pack) 17 gm PO DAILY PRN PRN Reason: constipation Last Admin: 04/26/22 10:58 Dose: 17 gm Documented By: SIERRA Polyethylene Glycol (Polyethylene Glycol 3350 17 Gm Powd.Pack) 17 gm PO DAILY [facility] Last Admin: 05/09/22 09:05 Dose: 17 gm Documented By: DIMPLE Quetiapine Fumarate (Quetiapine Fumarate 25 Mg Tablet) 12.5 mg PO BID PRN PRN Reason: anxiety, agitation Last Admin: 05/09/22 22:11 Dose: 12.5 mg Documented By: JASON Warfarin Sodium (Warfarin Sodium 3 Mg Tablet) 3 mg PO DAILY@1800 [facility] Last Admin: 05/07/22 18:03 Dose: 3 mg Documented By: HOLLY Labs CBC & Chem 7: 04/30/22 05:02 05/10/22 05:05 Labs: Laboratory Results - last 24 hr 05/10/22 05/10/22 05:05 05:05 PT 38.2 H INR 3.2 H Anion Gap 13 Estim Creat Clear Calc 68.1 Estimated GFR > 60 Random Glucose 109 Calcium 8.5 D Assessment and Plan (1) Ankle pain: Status: Acute (2) Hypernatremia: Status: Acute (3) Chronic heart failure: Status: Acute Plan 81yo F with AF (persistent?) + HFpEF, initially was awaiting for LTC placement but became hypotensive and had positive UA concerning for infection, though ultimately grew coag-neg staph from urine and blood determined to be contaminant Hypernatremia Hold torsemide today follow BMP contraction alkalosis 2/2 toresmide use Acetzolamide ankle pain Continue gabapentin to 200 mg b.i.d. Oxycodone 2.5 mg q.i.d. as needed MiraLax for constipation No available pcb designer to help with cutting her toenails UTI finished antibiotic course hypotension asymptomatic, chronic Likely related to decrease body tune and being on beta-tony and?diuretics Chronic AFib Rate controlled on beta blockade Continue warfarin PT/ INR daily Chronic HFpEF Not in exacerbation Bumex dose decreased to 1 mg daily from 3 mg b.i.d. at home continue current therapies Psoriatic arthritis Pain medication as needed adjust as indicated left eye subconjuctval haemorrage asymptomatic, resolved VTE ppx warfarin inpatient need: pending LTC placement, safe disposition Quality Stroke Does the patient have a stroke diagnosis?: No VTE Prior VTE?: No VTE Risk Level:: Medical - moderate - high VTE Device Contraindication: Treatment Not Indicated VTE Drug Contraindication: Treatment Not Indicated
[2022-05-10] MEDS: Lidocaine 4 % Patch ADH..PATCH 1 PATCH TRANSDERMA (11:33)
[2022-05-10] MEDS: oxyCODONE HCl Immed Release 5 MG TABLET 2.5 MG PO ×2 (11:38→20:55)
[2022-05-10] MEDS: Nystatin Powder 15 GM BOTTLE 1 APPL TOPICAL ×2 (11:39→20:58)
[2022-05-10] MEDS: acetaZOLAMIDE 250 MG TABLET PO ×2 (14:42→20:55)
[2022-05-10 15:10] VITALS: BP 95/68; PULSE 103; RESP 18; TEMP 36.3; O2SAT 92
[2022-05-10 19:11] VITALS: BP 109/70; PULSE 77; RESP 18; TEMP 36.9; O2SAT 93
[2022-05-10] MEDS: QUEtiapine Fumarate 25 MG TABLET 12.5 MG PO (20:55)
[2022-05-10 23:49] VITALS: BP 108/69; PULSE 84; RESP 16; TEMP 36.2; O2SAT 100
[2022-05-11] VITALS (21 sets, daily range): BP systolic 80–148; BP diastolic 39–85; PULSE 82–156; RESP 15–19; TEMP 35–37.7; O2SAT 90–100
--- NOTE | 2022-05-11 | ECG_ITS ---
Test Reason : afib Blood Pressure : / mmHG Vent. Rate : 138 BPM Atrial Rate : 000 BPM P-R Int : 000 ms QRS Dur : 128 ms QT Int : 336 ms P-R-T Axes : 000 074 175 degrees QTc Int : 509 ms Atrial fibrillation with rapid ventricular response Right bundle branch block T wave abnormality, consider lateral ischemia Abnormal ECG When compared with ECG of 11-MAY-2022 15:44, Nonspecific T wave abnormality Lateral leads is new Referred By: Keren Duque Electronically Signed By:KENDRA HEART MD
[2022-05-11 05:43] LABS: INTERNATIONAL NORM RATIO 3.1 (0.9-1.1); Prothrombin Time 36.7 SEC (10.0-13.1)
--- NOTE | 2022-05-11 10:49 | P.PNIM_ITS ---
Subjective Subjective Date of Service: 05/11/22 Interval History: the patient was seen and evaluated this morning Laying? in bed, Reporting ankle pain Noted to have traction alkalosis with elevated sodium levels No reported other overnight events. Systemic review: No fever, chills or weakness No chest pain, palpitation No shortness of breath or coughing No abdominal pain, nausea or vomiting No urinary symptoms No rash Physical Exam Vital Signs: Vital Signs: Last Vital Signs Temp 96.9 F 05/11/22 08:00 Pulse 96 05/11/22 08:00 Resp 18 05/11/22 08:00 BP 101/61 05/11/22 08:00 Pulse Ox 96 05/11/22 08:00 O2 Del Method 05/11/22 08:00 O2 Flow Rate 3 05/11/22 08:00 FiO2 99 02/22/22 03:47 BMI result Body Mass Index 28.9 Const: Other: Constitutional : Alert, interactive, not in distress Neck : Normal inspection, Supple Cardiovascular : RRR, no JVP, no lower extremity edema Respiratory : fair bilateral air entry,? no crackles, wheezes or rhonchi, on room air Gastrointestinal:? soft, lax, Normal bowel sounds, Non tender Skin : Warm, Dry skin, long nails in her toes specially left big toe Extremities:? no erythema or swelling noted, chronic deformity to left ankle and foot Neurological : Alert & oriented to self and place, weaker on the left lower extremity Objective Data Active Medications Acetaminophen (Acetaminophen 325 Mg Tablet) 650 mg PO Q6H PRN PRN Reason: Pain, Mild (Pain Scale 1-3) Last Admin: 05/08/22 07:32 Dose: 650 mg Documented By: MITCH Acetazolamide (Acetazolamide 250 Mg Tablet) 250 mg PO BID [facility] Last Admin: 05/10/22 20:55 Dose: 250 mg Documented By: CASTILGenevieve Artificial Tears (Artificial Tears 15 Ml Drops) 1 drop EYE-BOTH Q4H PRN PRN Reason: Dry Eyes Bumetanide (Bumetanide 1 Mg Tablet) 1 mg PO DAILY [facility]; Protocol Last Admin: 05/10/22 11:43 Dose: Not Given Documented By: SHARIFA Non-Admin Reason: See Note Comments: on hold per instructions Docusate Sodium (Docusate Sodium 100 Mg Capsule) 100 mg PO BID [facility] Last Admin: 05/10/22 20:55 Dose: 100 mg Documented By: YOVANY Escitalopram Oxalate (Escitalopram Oxalate 10 Mg Tablet) 10 mg PO DAILY [facility] Last Admin: 05/10/22 11:32 Dose: 10 mg Documented By: SHARIFA Gabapentin (Gabapentin 100 Mg Capsule) 200 mg PO BID [facility] Last Admin: 05/10/22 20:55 Dose: 200 mg Documented By: YOVANY Lidocaine (Lidocaine 4 % Patch Adh..Patch) 1 patch TRANSDERMA DAILY [facility]; Protocol Last Admin: 05/10/22 11:33 Dose: 1 patch Documented By: SHARIFA Metoprolol Tartrate (Metoprolol Tartrate 12.5 Mg Halftab) 12.5 mg PO BID [facility]; Protocol Last Admin: 05/10/22 20:55 Dose: 12.5 mg Documented By: YOVANY Nystatin (Nystatin Powder 15 Gm Bottle) 1 appl TOPICAL TID [facility]; Protocol Last Admin: 05/10/22 20:58 Dose: 1 appl Documented By: YOVANY Ondansetron HCl (Ondansetron Odt 4 Mg Tab.Rapdis) 4 mg TRANSLINGU Q6H PRN PRN Reason: Nausea and Vomiting Last Admin: 04/03/22 04:51 Dose: 4 mg Documented By: DANE Oxycodone HCl (Oxycodone Hcl Immed Release 5 Mg Tablet) 2.5 mg PO Q6H PRN PRN Reason: Pain, Severe (Pain Scale 7-10) Last Admin: 05/10/22 20:55 Dose: 2.5 mg Documented By: YOVANY Pharmacy Consult (Consult Rx Perform Med Rec) 1 each MISCELLANE ONCE PRN PRN Reason: Consult order Polyethylene Glycol (Polyethylene Glycol 3350 17 Gm Powd.Pack) 17 gm PO DAILY PRN PRN Reason: constipation Last Admin: 04/26/22 10:58 Dose: 17 gm Documented By: SIERRA Polyethylene Glycol (Polyethylene Glycol 3350 17 Gm Powd.Pack) 17 gm PO DAILY [facility] Last Admin: 05/10/22 11:32 Dose: 17 gm Documented By: SHARIFA Quetiapine Fumarate (Quetiapine Fumarate 25 Mg Tablet) 12.5 mg PO BID PRN PRN Reason: anxiety, agitation Last Admin: 05/10/22 20:55 Dose: 12.5 mg Documented By: MILOILM Warfarin Sodium (Warfarin Sodium 3 Mg Tablet) 3 mg PO DAILY@1800 [facility] Last Admin: 05/07/22 18:03 Dose: 3 mg Documented By: BEIT Labs CBC & Chem 7: 04/30/22 05:02 05/10/22 05:05 Labs: Laboratory Results - last 24 hr 05/11/22 05:06 PT 36.7 H INR 3.1 H Assessment and Plan (1) Hypernatremia: Status: Acute (2) Ankle pain: Status: Acute Plan 81yo F with AF (persistent?) + HFpEF, initially was awaiting for LTC placement but became hypotensive and had positive UA concerning for infection, though ultimately grew coag-neg staph from urine and blood determined to be contaminant Hypernatremia torsemide held follow BMP contraction alkalosis 2/2 toresmide use Acetzolamide follow BMP ankle pain Continue gabapentin to 200 mg b.i.d. Oxycodone 2.5 mg q.i.d. as needed MiraLax for constipation No available associate professor of sociology to help with cutting her toenails UTI finished antibiotic course hypotension asymptomatic, chronic Likely related to decrease body tune and being on beta-tony and?diuretics Chronic AFib Rate controlled on beta blockade Continue warfarin PT/ INR daily Chronic HFpEF Not in exacerbation Bumex dose decreased to 1 mg daily from 3 mg b.i.d. at home continue current therapies Psoriatic arthritis Pain medication as needed adjust as indicated left eye subconjuctval haemorrage asymptomatic, resolved VTE ppx warfarin inpatient need: pending LTC placement, safe disposition Quality Stroke Does the patient have a stroke diagnosis?: No VTE Prior VTE?: No VTE Risk Level:: Medical - moderate - high VTE Device Contraindication: Treatment Not Indicated VTE Drug Contraindication: Treatment Not Indicated
--- NOTE | 2022-05-11 11:00 | PC.NURSE ---
Patient noted to have slightly labored breathing, increased edema +[address] Alba notified. Diamox given and bumex resumed. Patient talkative and o2 sats 96% on 3L.
[2022-05-11] MEDS: polyethylene glycoL 3350 17 GM POWD.PACK PO (11:02)
[2022-05-11] MEDS: Lidocaine 4 % Patch ADH..PATCH 1 PATCH TRANSDERMA (11:02)
[2022-05-11] MEDS: Gabapentin 100 MG CAPSULE 200 MG PO (11:03)
[2022-05-11] MEDS: oxyCODONE HCl Immed Release 5 MG TABLET 2.5 MG PO (11:03)
[2022-05-11] MEDS: acetaZOLAMIDE 250 MG TABLET PO (11:03)
[2022-05-11] MEDS: Escitalopram Oxalate 10 MG TABLET PO (11:03)
[2022-05-11] MEDS: Metoprolol Tartrate 12.5 MG HALFTAB PO (11:03)
[2022-05-11] MEDS: Nystatin Powder 15 GM BOTTLE 1 APPL TOPICAL ×2 (11:04→22:36)
[2022-05-11] MEDS: Docusate Sodium 100 MG CAPSULE PO (11:04)
[2022-05-11] MEDS: Ondansetron ODT 4 MG TAB.RAPDIS TRANSLINGU (11:07)
[2022-05-11 15:52] LABS: ABG Base Excess 23.4 mmol/L; ABG HCO3 60 mmol/L (22-26); ABG pCO2 172 mmHg (32-45); ABG pH 7.14 (7.35-7.45); ABG pO2 99 mmHg (83-108)
--- NOTE | 2022-05-11 15:55 | PC.NURSE ---
15:40 pt unresponsive, unable to wake up to the sternal rub, has some moaning sound ye . INTER[employer]ION[employer] S[employer] CONSULTANT called at 15:40, BP 108/62, hr 98, o2sat 95% on 2 l o2 via NC. EKG afib, ABG gases done, iv access # 20 to LT AC, pt is full code and is going to ICU for the possible incubation. DR Rodriguez to notify the family
[2022-05-11 16:19] LABS: Glucose, Whole Blood 137 mg/dL (60-115)
[2022-05-11] MEDS: Rocuronium Bromide 50 MG/5 ML VIAL IVPUSH (16:23)
[2022-05-11] MEDS: propofoL 200 MG/20 ML VIAL 60 MG IVPUSH (16:23)
[2022-05-11] MEDS: propofoL 1,000 MG/100 ML VIAL 14.63 MG IVCONT ×2 (16:27→22:33)
[2022-05-11] MEDS: Rocuronium Bromide 50 MG/5 ML VIAL 30 MG IVPUSH (17:00)
--- NOTE | 2022-05-11 17:25 | W.PM.CCHP ---
Procedures Date of Service Date of Service: 05/11/22 Central Line Placement Right IJ: Central Line Comments: Due to lack of IV access and the emergent need to intubate utilizing ultrasound guidance and sterile preparation and draping in the usual fashion gained easy entry x1 into the right internal jugular vein passing retrograde with Seldinger technique a J tipped guidewire over which a 16 cm triple-lumen central venous pressure catheter was then passed and noted to be in the right atrium by chest x-ray CVP measurement is pending sterilely dressed Consent for Procedure: Emergent-no informed consent obtained Time out performed: Yes Sterile Technique Used: Yes Patient placed on monitor/pulse ox: Yes prep: mask, gown and gloves Central line prep: Chlorhexidine scrub Ultrasound used for placement: Yes Central line lumen inserted: triple Post procedure: sutured in place, good blood return, all ports aspirated, flushed, capped and sterile dressing applied Post procedure x-ray: tip of catheter in good position and no pneumothorax seen Patient tolerated procedure: well and no complications Complications: none
--- NOTE | 2022-05-11 17:27 | P.PCNCC_ITS ---
Procedures Date of Service Date of Service: 05/11/22 Intubation Intubation Comments: Call of called to a rapid response patient was noted to be unresponsive and I notice marked neck vein distension she had persistent atrial fibrillation as well as right bundle branch block by EKG somewhat diminished bilateral carotid upstrokes and and medially raise concerns the no for respiratory failure stat blood gas revealed pCO2 of 170 with a pH of 7.14 so we transferred downstairs to the ICU and with IV IV propofol and rocuronium and utilizing glide scope we had to use a 6.5 endotracheal tube because nothing else with fit we had excellent visualization of the vocal cords good bilateral breath sounds excellent end- tidal CO2 response tube was secured at 22 cm at the at the lip and chest x-ray shows of that were above the ryan in good position Consent for Procedure: Emergent-no informed consent obtained Time out performed: Yes Sedative: propofol Paralytic: rocuronium Laryngoscope: fiber optic video scope ET tube size: 6.5 ET tube uncuffed: No Tube secured depth (cm): 22 Tube placement confirmation: visualized tube passing through cords, equal breath sounds bilaterally, no breath sounds over epigastrium and confirmation by capnom etry Patient tolerated procedure: well and no complications Intubation complications: none
--- NOTE | 2022-05-11 17:30 | P.CONCC_ITS ---
History of Present Illness Data of Consult Service Date: 05/11/22 Requesting physician: Lizandro Alba Primary Care Provider: Yohana Shirley NP HPI Reason for consult: Patient unresponsive 81-year-old female with very shallow respiration unresponsive normal skin color but marked neck vein distension with mildly reduced bilateral carotid upstrokes and an EKG showing persistent atrial fibrillation with elevated heart rate right bundle branch block and diffuse nonspecific ST-T changes leading me to bedside echo showing a significantly dilated right ventricle and right atrium with hypo kinesis with a hyperdynamic small left ventricle and no primary valve or pericardial disease this raising concerns for some form of lung disease and this is a lady who had been treated with diuresis including 3 diuretics as a diastolic CHF in other words with normal preserved ejection fraction and so I did a stat blood gas which did reveal acute on chronic hypercarbic respiratory failure with a pCO2 of 170 and a pH of 7.14 and a serum bicarb of 59 so I brought her down for urgent intubation which went without complication and ET tube in good position a right internal jugular CVP was placed for is CVP measurement and management after propofol and rocuronium she required Levophed for preservation of her blood pressure and once the she was on assist control her heart rate did come down she had been on metoprolol and also on Coumadin Review of Systems Review of Systems: Yes Unobtainable due to mental status PMFSH Past Medical History Medical History (Updated 05/11/22 @ 17:36 by Keren Duque MD) Afib Anxiety CHF (congestive heart failure) Family History Family history: reviewed and not pertinent Surgical History Surgical History H/O hernia repair History of orthopedic surgery Social History Social History Household Members: Spouse and Children Do you presently have visiting nurse or other home services: No Alcohol intake: never Patient Tobacco Use Status: Never used Tobacco service: No Current occupational status: retired Meds Allergies Allergy/AdvReac Type Severity Reaction Status Date / Time No Known Allergies Allergy Unverified 03/22/20 19:41 [No Known Allergies*] Active Medications: Current Medications Acetaminophen (Acetaminophen 325 Mg Tablet) 650 mg PO Q6H PRN PRN Reason: Pain, Mild (Pain Scale 1-3) Last Admin: 05/08/22 07:32 Dose: 650 mg Artificial Tears (Artificial Tears 15 Ml Drops) 1 drop EYE-BOTH Q4H PRN PRN Reason: Dry Eyes Docusate Sodium (Docusate Sodium 100 Mg Capsule) 100 mg PO BID [facility] Last Admin: 05/11/22 11:04 Dose: 100 mg Gabapentin (Gabapentin 100 Mg Capsule) 200 mg PO BID [facility] Last Admin: 05/11/22 11:03 Dose: 200 mg Propofol (Diprivan) 1,000 mg in 100 mls @ 0 mls/hr IVCONT .Q0M [facility]; Protocol Last Titration: 05/11/22 16:52 Dose: 20 mcg/kg/min, 9.76 mls/hr Norepinephrine Bitartrate (Levophed) 8 mg in 250 mls @ 0 mls/hr IVCONT .Q0M [facility]; Protocol Last Admin: 05/11/22 17:17 Dose: 0.05 mcg/kg/min, 7.62 mls/hr Norepinephrine Bitartrate (Levophed) 8 mg in 250 mls @ 0 mls/hr IVCONT .Q0M [facility]; Protocol Lidocaine (Lidocaine 4 % Patch Adh..Patch) 1 patch TRANSDERMA DAILY [facility]; Protocol Last Admin: 05/11/22 11:02 Dose: 1 patch Metoprolol Tartrate (Metoprolol Tartrate 12.5 Mg Halftab) 12.5 mg PO BID [facility]; Protocol Last Admin: 05/11/22 11:03 Dose: 12.5 mg Nystatin (Nystatin Powder 15 Gm Bottle) 1 appl TOPICAL TID [facility]; Protocol Last Admin: 05/11/22 16:42 Dose: Not Given Ondansetron HCl (Ondansetron Odt 4 Mg Tab.Rapdis) 4 mg TRANSLINGU Q6H PRN PRN Reason: Nausea and Vomiting Last Admin: 05/11/22 11:07 Dose: 4 mg Oxycodone HCl (Oxycodone Hcl Immed Release 5 Mg Tablet) 2.5 mg PO Q6H PRN PRN Reason: Pain, Severe (Pain Scale 7-10) Last Admin: 05/11/22 11:03 Dose: 2.5 mg Pharmacy Consult (Consult Rx Perform Med Rec) 1 each MISCELLANE ONCE PRN PRN Reason: Consult order Polyethylene Glycol (Polyethylene Glycol 3350 17 Gm Powd.Pack) 17 gm PO DAILY PRN PRN Reason: constipation Last Admin: 04/26/22 10:58 Dose: 17 gm Polyethylene Glycol (Polyethylene Glycol 3350 17 Gm Powd.Pack) 17 gm PO DAILY [facility] Last Admin: 05/11/22 11:02 Dose: 17 gm Rocuronium [place] (Rocuronium [place] 50 Mg/5 Ml Vial) 30 mg IVPUSH ONCE ONE Stop: 05/11/22 17:24 Warfarin Sodium (Warfarin Sodium 3 Mg Tablet) 3 mg PO DAILY@1800 [facility] Last Admin: 05/07/22 18:03 Dose: 3 mg Home Medications Medication Instructions Recorded Confirmed Last Taken Type bumetanide 1 mg tablet 3 mg PO BID 11/16/20 02/19/22 02/18/22 History metoprolol tartrate 25 mg tablet 25 mg PO BID 11/16/20 02/19/22 02/18/22 History potassium chloride 20 mEq 3 tab PO DAILY 11/16/20 02/19/22 02/18/22 History tablet,extended release(part/cryst) sertraline 100 mg tablet 1 tab PO BEDTIME 11/16/20 02/19/22 02/18/22 History warfarin 1 mg tablet 1 mg PO MOTUWETHFR@1800 11/16/20 02/19/22 02/18/22 History acetaminophen 325 mg tablet 650 mg PO Q6H PRN Pain 02/19/22 02/19/22 Unknown History (Tylenol) cranberry fruit concentrate 250 mg 250 mg PO TID 02/19/22 02/19/22 Unknown History chewable tablet (Azo Cranberry) loperamide 2 mg tablet 2 mg PO Q6H PRN Diarrhea 02/19/22 02/19/22 Unknown History warfarin 1 mg tablet 2 mg PO SUSA@1800 02/19/22 02/19/22 02/16/22 History Physical Exam Vital Signs: Vital Signs: Last Vital Signs Temp 97.8 F 05/11/22 15:47 Pulse 111 H 05/11/22 17:01 Resp 19 05/11/22 17:01 BP 94/71 05/11/22 17:17 Pulse Ox 97 05/11/22 17:01 O2 Del Method 05/11/22 17:01 O2 Flow Rate 100 05/11/22 17:01 FiO2 40 05/11/22 16:35 BMI result Body Mass Index 28.9 Unresponsive except to painful stimuli Chronic contractures are noted in this bed ridden individual Peripheral acrocyanosis Bedside echo as I described above with predominant right heart failure Abdomen was soft no organomegaly Chest with very poor bilateral excursion no adventitious sounds noted Results Labs CBC & Chem 7: 04/30/22 05:02 05/10/22 05:05 Microbiology Microbiology Results: Microbiology 02/21/22 12:42 Blood - Venous Blood Culture - Final No growth after 5 days. 02/21/22 12:36 Blood - Venous Blood Culture - Final No growth after 5 days. 02/20/22 05:43 Blood - Venous Blood Culture - Final Coag negative Staphylococcus 02/20/22 05:43 Blood - Venous Blood Culture - Final Coag negative Staphylococcus 02/19/22 18:54 Urine clean catch - Urine cardona top Urine Culture - Final Assessment and Plan (1) Hypercarbic cerebral edema: Status: Acute (2) Hypercapnic respiratory failure: Status: Acute (3) Acute hypotension: Status: Acute (4) Acute UTI: Status: Acute (5) Hypomagnesemia: Status: Acute (6) Acute hypokalemia: Status: Acute (7) Anxiety: Status: Acute (8) Gram-positive bacteremia: Status: Acute (9) Afib: Status: Acute (10) Chronic atrial fibrillation: Status: Acute (11) Chronic heart failure: Status: Acute (12) Psoriatic arthritis: Status: Acute (13) Subconjunctival hemorrhage: Status: Acute (14) Ankle pain: Status: Acute (15) Hypernatremia: Status: Acute (16) Cor pulmonale, acute: Status: Acute Plan Given that level of of hypercarbia and severe secondary metabolic and alkalosis we probably should treat her presumptively for cerebral edema once I obtain a CVP and a current chemistry to look at her serum sodium a make a decision between 3% saline and mannitol and continue ventilatory management with follow- up blood gas maintain sedation and in the morning I think evaluate by CT scan the pulmonary anatomy
[2022-05-11 17:42] LABS: VBG Base Excess 25.6 mmol/L; VBG HCO3 54 mmol/L (22-26); VBG pCO2 83 mmHg; VBG pH 7.42 (7.32-7.43); VBG pO2 44 mmHg
[2022-05-11 17:50] LABS: MANUAL DIFF FLAG NO
[2022-05-11 17:55] LABS: Basophils Percent Auto 0.3 % (0-2); Eosinophils Percent Auto 0.5 % (0-4); Hematocrit 37.7 % (37.0-47.0); Hemoglobin 10.7 g/dl (12.0-16.0); Imm Gran Abs Auto 0.05 X10*3/uL (0.00-0.03); Imm Gran Pct Auto 0.7 % (0.0-0.4); Lymphocytes Absolute Auto 0.5 X10*3/uL (1.2-4.9); Lymphocytes Percent Auto 6.1 % (20-40); Mean Corpuscular HGB Conc 28.4 g/dl (31.0-35.0); Mean Corpuscular Hemoglobin 29.2 pg (27.0-33.0); Mean Platelet Volume 9.5 fL (9.4-12.3); Monocytes Absolute Auto 0.4 X10*3/uL (0.1-1.2); Monocytes Percent Auto 5.2 % (2-11); Neutrophils Absolute Auto 6.6 x10*3/uL (2.0-8.3); Neutrophils Percent Auto 87.2 % (45-73); Platelet Count 186 X10*3/uL (160-400); Red Blood Count 3.66 X10*6/uL (4.20-5.50); Red Cell Distribution Width 14.3 % (11.0-16.0); White Blood Count 7.6 X10*3/uL (4.8-10.8)
[2022-05-11] MEDS: Albuterol Sulfate 2.5 MG, Albuterol Sulfate (0.083%) 2.5 MG 5 MG INHALE ×2 (18:03→18:46)
[2022-05-11 18:04] LABS: Lactic Acid 1.2 mmol/L (0.5-2.0)
--- NOTE | 2022-05-11 18:15 | PC.NURSE ---
rapid response called at 15:40. Pt not responsive, to sternal rub pt produced noise yeah but did not open eyes. BP at time 108/62, HR 98 Afib, SaO2 95% 2L NC. EKG showed Afib. Pt opened eyes to sternal rub 15:47, required continuous stimuli to open eyes. ABGs: pH 7.14, pCO2 172, HCO3 60. Pt transferred to ICU for emergent intubation. Meds used for intubation: 60 mg propofol IVP 50 mg Rocuronium IVP and additional dose of 30 mg IVP per MD ET tube placed 6.5 20cm @lip propofol gtt started per MD @ 30 mcg/kg/min Levophed gtt started to maintain MAP > 65 - see EMAR vent settings AC 16/375/5/70% triple lumen central line placed by to right IJ - CXR to confirm placement OG 14F placed by nance placed per MD order for fluid management PT unable to maintain TV, manually bagged by RNs and RT, notified - PRN Rocuronium given: see EMAR Afib on tele - HR 120-160s, notified and no further orders at this time PT given head to toe bath, prevalon system applied, pictures obtained to back and buttock, barrier and pink foams applied Family called and updated by Hospitalist
[2022-05-11] MEDS: methylPREDNISolone Sod Succ 125 MG/2 ML VIAL 80 MG IVPUSH (18:19)
[2022-05-11 18:26] LABS: Anion Gap 15 (12-20); Blood Urea Nitrogen 23 mg/dL (9-16); Calcium 8.7 mg/dL (8.4-10.2); Carbon Dioxide 39 mmol/L (22-29); Chloride 96 mmol/L (96-108); Creatinine Clr Calc Pharmacy 63.7; Estimated Glomerular Filt Rate > 60; Glucose Random 157 mg/dL (60-115); Potassium 3.7 mmol/L (3.3-5.1); Sodium 146 mmol/L (135-145)
[2022-05-11] MEDS: Rocuronium Bromide 50 MG/5 ML VIAL 40 MG IVPUSH (18:31)
--- NOTE | 2022-05-11 19:14 | ECG_ITS ---
Test Reason : rapid responce Blood Pressure : / mmHG Vent. Rate : 108 BPM Atrial Rate : 000 BPM P-R Int : 000 ms QRS Dur : 146 ms QT Int : 368 ms P-R-T Axes : 000 085 067 degrees QTc Int : 493 ms Atrial fibrillation with rapid ventricular response Right bundle branch block Abnormal ECG No significant changes seen Referred By: Katy Leyva Electronically Signed By:KENDRA HEART MD
[2022-05-11] MEDS: Albuterol/Iprat 2.5/0.5MG 3 ML AMPUL.NEB INHALE (19:28)
[2022-05-11] MEDS: dilTIAZem HCL 50 MG/10 ML VIAL 10 MG IVPUSH (19:34)
[2022-05-11] MEDS: dilTIAZem HCL 125 MG in 0.9 % Sodium Chloride 100 ML 10 MG IVCONT (19:50)
[2022-05-11] MEDS: Chlorhexidine Gluc Oral Rinse 15 ML MOUTHWASH BUCCAL (21:48)
[2022-05-11] MEDS: Acetaminophen Oral Liquid 650 MG/20.3 ML SOLUTION PO (21:48)
[2022-05-11 22:01] LABS: Venous Blood Gas Refer to POC result
[2022-05-11 23:46] LABS: Alanine Aminotransferase 16 U/L (0-31); Albumin Level 3.1 g/dL (3.5-5.0); Alkaline Phosphatase 69 U/L (39-117); Anion Gap 17 (12-20); Aspartate Amino Transferase 17 U/L (5-31); Blood Urea Nitrogen 25 mg/dL (9-16); Calcium 8.7 mg/dL (8.4-10.2); Carbon Dioxide 34 mmol/L (22-29); Chloride 96 mmol/L (96-108); Creatinine Clr Calc Pharmacy 60.5; Estimated Glomerular Filt Rate > 60; Glucose Random 218 mg/dL (60-115); Phosphorus 1.7 mg/dL (2.7-4.5); Potassium 2.9 mmol/L (3.3-5.1); Sodium 144 mmol/L (135-145); Total Protein 5.8 g/dL (6.5-8.0)
[2022-05-12] VITALS (34 sets, daily range): BP systolic 80–144; BP diastolic 37–84; PULSE 89–136; RESP 15–17; TEMP 34.8–37.9; O2SAT 91–98; BMI 37.0
[2022-05-12] MEDS: dilTIAZem HCL 125 MG in 0.9 % Sodium Chloride 100 ML 15 MG IVCONT (00:47)
[2022-05-12 01:13] LABS: Appearance Urine Clear; Color Urine Yellow; Glucose Urine UA Negative (Negative); Leukocyte Esterase Urine Small (1+) (Negative); Nitrite Urine Negative (Negative); PH >= 9.0 (5.0-9.0); Specific Gravity - Urine 1.015 (1.005-1.025); UMIC TRIGGER UA YES; Urine Blood Small (1+) (Negative); Urine Ketones 15 mg/dL (Negative); Urine Protein 30 (1+) mg/dL (Neg-Trace)
[2022-05-12 01:22] LABS: Venous Blood Gas Refer to POC result
[2022-05-12 01:36] LABS: Bacteria Urine 1+ (None Seen); Hyaline Casts Urine 0-2 /LPF (0-2); RBC Urine >20 /HPF (0-2); Squamous Epithelial Cell Urine 0-2 /HPF (0-2); WBC Urine 21-50 /HPF (0-5)
[2022-05-12] MEDS: methylPREDNISolone Sod Succ 125 MG/2 ML VIAL 80 MG IVPUSH ×2 (02:31→09:49)
[2022-05-12] MEDS: propofoL 1,000 MG/100 ML VIAL 17.07 MG IVCONT (04:34)
[2022-05-12] MEDS: Pantoprazole Sodium 40 MG/10 ML VIAL IVPUSH (05:20)
[2022-05-12 05:39] LABS: Hematocrit 36.3 % (37.0-47.0); Hemoglobin 11.1 g/dl (12.0-16.0); Imm Gran Abs Auto 0.05 X10*3/uL (0.00-0.03); Imm Gran Pct Auto 0.7 % (0.0-0.4); Lymphocytes Absolute Auto 0.2 X10*3/uL (1.2-4.9); Lymphocytes Percent Auto 2.9 % (20-40); MANUAL DIFF FLAG SCAN; Mean Corpuscular HGB Conc 30.6 g/dl (31.0-35.0); Mean Corpuscular Hemoglobin 29.6 pg (27.0-33.0); Mean Corpuscular Volume 96.8 fL (80.0-98.0); Mean Platelet Volume 9.4 fL (9.4-12.3); Monocytes Absolute Auto 0.1 X10*3/uL (0.1-1.2); Monocytes Percent Auto 1.8 % (2-11); Neutrophils Absolute Auto 6.9 x10*3/uL (2.0-8.3); Neutrophils Percent Auto 94.6 % (45-73); Platelet Count 216 X10*3/uL (160-400); Red Blood Count 3.75 X10*6/uL (4.20-5.50); Red Cell Distribution Width 14.1 % (11.0-16.0); SCAN SMEAR FLAG 1; White Blood Count 7.3 X10*3/uL (4.8-10.8)
[2022-05-12 05:43] LABS: VBG Base Excess 11.7 mmol/L; VBG HCO3 34 mmol/L (22-26); VBG pCO2 37 mmHg; VBG pH 7.56 (7.32-7.43); VBG pO2 64 mmHg
[2022-05-12 05:49] LABS: INTERNATIONAL NORM RATIO 2.5 (0.9-1.1); Prothrombin Time 29.3 SEC (10.0-13.1)
[2022-05-12 05:58] LABS: Alanine Aminotransferase 14 U/L (0-31); Albumin Level 3.2 g/dL (3.5-5.0); Alkaline Phosphatase 70 U/L (39-117); Anion Gap 17 (12-20); Aspartate Amino Transferase 15 U/L (5-31); Bilirubin Total 0.9 mg/dL (0.0-1.0); Blood Urea Nitrogen 24 mg/dL (9-16); Calcium 8.7 mg/dL (8.4-10.2); Carbon Dioxide 33 mmol/L (22-29); Chloride 95 mmol/L (96-108); Creatinine Clr Calc Pharmacy 69.5; Estimated Glomerular Filt Rate > 60; Glucose Random 201 mg/dL (60-115); Phosphorus 1.7 mg/dL (2.7-4.5); Potassium 2.7 mmol/L (3.3-5.1); Sodium 142 mmol/L (135-145); Total Protein 5.8 g/dL (6.5-8.0)
[2022-05-12 06:10] LABS: SLIDE REVIEW VERIFIED
[2022-05-12 06:22] LABS: Venous Blood Gas Refer to POC result
[2022-05-12] MEDS: propofoL 1,000 MG/100 ML VIAL 19.51 MG IVCONT ×5 (08:00→22:34)
[2022-05-12 08:50] LABS: VBG Base Excess 17.7 mmol/L; VBG HCO3 41 mmol/L (22-26); VBG pCO2 46 mmHg; VBG pH 7.56 (7.32-7.43); VBG pO2 45 mmHg
[2022-05-12] MEDS: Albuterol/Iprat 2.5/0.5MG 3 ML AMPUL.NEB INHALE ×4 (09:02→19:33)
--- NOTE | 2022-05-12 09:03 | PM.CCPN ---
Subjective Subjective Date of Service: 05/12/22 Interval History: Mrs. Anguiano was transferred to ICU yesterday bec of acute hypercarbic respiratory failure. The patient is a 81 yo female with hx of afib on coumadin, CHF, and anxiety.? She is bedbound, lives with her daughter who takes care of her and is the HCP. HISTORY OF PRESENT ILLNESS:? According to the ED physician?s note of February 19, 2022, the patient was BIBA to the ED ?requesting help as she is anxious and nervous because her abusive is coming back home and she states she doesn't want to live there anymore. She is asking to be placed.?? Ultimately, the patient was found to have a low-ismael BP and a positive u/a, and she was given fluids and Rocephin and was admitted to Medicine on 02/20.? The patient has been in the hospital ever since then. Notably, CXRs from February 20 show marked loss of LLL volume.? A chest CT on Feb 21 showed significant volume loss in left hemithorax, with shift of the mediastinal structures to the left, with patchy areas of left lower lobe atelectasis and consolidation.? No endobronchial or endotracheal lesion was seen.? I was unable to find any hospitalist comment on those findings.? On those dates, the patient was maintained on room air, w SpO2?s 92-98%. ECHO on 02/21/22 showed normal LV size and systolic function, w mildly increased LV wall thickness.? EF 60-65%.? Severe septal asymmetric hypertrophy.? Normal RV cavity size and systolic function.? Severely dilated LA, mildly dilated RAata.? Normal RA pressure.? Normal IVC with greater than 50% inspiratory collapse.? No PHTN. MOST RECENT MEDICATIONS IN HOSPITAL INCLUDE: Bumetanide 1 mg PO DAILY Escitalopram Oxalate 10 mg PO DAILY Gabapentin 200 mg PO BID Metoprolol Tartrate 12.5 mg PO BID Oxycodone 2.5 mg PO Q6H PRN Quetiapine Fumarate 12.5 mg PO BID prn Coumadin 3 mg PO DAILY MOST RECENT PROBLEM LIST IN HOSPITAL INCLUDED: 1. Hypernatremia.? 2? diuretics. 2. Contraction alkalosis.? 2? diuretics.? Tx w Diamox. 3. Ankle pain.? Tx w gabapentin 200 mg bid and xxycodone 2.5 mg qid prn. 4. UTI.? Finished antibiotic course 5. Hypotension.? Asymptomatic, chronic.? Thought 2? beta-tony and diuretics. 6. Chronic AFib.? On beta blockade and Coumadin 7. Chronic HFpEF.? On Bumex.? Dose decreased to 1 mg daily from 3 mg bid at home. 8. Psoriatic arthritis. ?Tx with pain medication as needed. Yesterday morning, the patient was reported to be alert and oriented to self and place.? Yesterday afternoon, Dr. Duque was called to see the patient bec of unresponsiveness.? On exam the patient was unresponsive except to painful stimuli.? Marked neck vein distention was noted.? His bedside echo showed a significantly dilated right ventricle and right atrium with hypokinesis with a small hyperdynamic LV and no primary valve or pericardial disease.? ABG showed 7.14/172/99/+23.? The patient was tx to ICU and intubated. A RIJV CVL was placed.? CXR (a very rotated film) showed marked loss of volume on the left side, w ? complete LLL collapse.? After she was placed on mechanical ventilation, a subsequent CVBG showed 7.42/83/+25. Today the patient is sedated on propofol 40ug; at lower doses, she shakes fairly vigorously. ?Also on Diltiazem 12 mg/hr and Levophed 0.08ug.? HR 107, afib, BP 143/84.? On AC 16/375/30%/+5, RR is 16, Ve 6.1L, PIP 27cm, ETCO2 37mm, Sat 95%.? CVBG this morn 7.56/37/+11.? Afebrile.? No JVD at about 20?.? Chest is CTA on right, with decreased and tubular BS on the left.? Heart rate and rhythm are irregular, with normal-sounding S1-S2, with no murmur or gallops.? The abdomen is benign.? She has at least 1+ systemic edema; may have mild anasarca.? She has a contracted left ankle. LABORATORY DATA: Below.? Notably, BUN/creatinine 24/0.8 (was 18/0.8 on admission in February), bicarb is 33, potassium 2.7, phosphorus 1.7, albumin 3.2.? Last BNP was 141 on 02/20/2022; that was down from 361 in November of last year. Repeat CXR today, taken with care to avoid rotation, still shows about 75% loss of volume on the left side, along with a probable right pleural effusion, and vascular markings suggestive of CHF. My bedside echo:? Technically very difficult.? LV fxn is normal without question.? RV looks enlarged, RV:LV cavity ratio about 1.5.? No MR.? 1+TR.? IVC measured 1.92cm with no insp collapse. IMPRESSION: 1. Acute hypercarbic resp failure of unclear etiology.? Given the echo findings, in particular compared with the echo that was done on PE has to be ruled out.? No choice but to do a CTPA.? Also needs a troponin and BNP.? Consent for CTPA obtained from daughter Haley ??? Also in the DDx for the etiology would be medication effect -- combination of gabapentin and opioids.? Either way, she has a marked metabolic alkalosis.? Diamox will help bring her pCO2 down. 2. Partial left lung collapse.? Needs a detailed bronchoscopy to figure out the etiology.? The CXRs from admission show that this has been going on for some time.? I suspect that in some or in large part it has to do with the patient always lying on her left side. 3. CHF on CXR (HFpEF).? Needs diuresis. 4. Afib.? Poor rate control.? Add metoprolol.? Could also add digoxin after hypokalemia is corrected.? Continue Coumadin. 5. Hypoxemic respiratory failure.? 2? to above factors. 6. Mild hypotension.? ? 2? RHF and/or above factors. 7. Mild SAKINA with prerenal indices.? Either hypovolemia or cardiorenal syndrome.? But systemically she?s volume overloaded.? We?ll trial diuresis after the CTPA 8. Metabolic alkalosis.? Likely 2? diuresis.? Diamox. 9. Hypokalemia.? Repleting. 10. Hypophosphatemia.? Repleting. Had a long telephone conversation with daughter Haley ([phone]) who is the HCP.? She explained to me a lot of the difficult personal dynamics involved with the family.? It seems that she may want to take her mother off life support; that she thinks her mother would not want this.? She will come in to the hospital tomorrow to talk about it. Had a second telephone conversation to obtain consent. Critical care time (including full chart rev and hospital course summary):? 120+ min Critical Care Time (minutes): 120 Physical Exam Vital Signs: Vital Signs: Last Vital Signs Temp 99.0 F 05/12/22 08:00 Pulse 120 H 05/12/22 08:00 Resp 16 05/12/22 08:00 BP 144/60 H 05/12/22 08:00 Pulse Ox 96 05/12/22 08:00 O2 Del Method 05/12/22 08:00 O2 Flow Rate 100 05/11/22 17:01 FiO2 30 05/12/22 08:13 BMI result Body Mass Index 37.0 Objective Data Labs CBC & Chem 7: 05/12/22 05:25 05/12/22 05:25 Labs: Laboratory Results - last 24 hr 05/11/22 05/11/22 05/11/22 15:42 15:46 17:35 WBC RBC Hgb Hct MCV MCH MCHC RDW Plt Count MPV Immature Gran % (Auto) Neut % (Auto) Lymph % (Auto) [place] % (Auto) Eos % (Auto) Baso % (Auto) Lymph # (Auto) [place] # (Auto) Eos # (Auto) Baso # (Auto) Abs Immat Gran (auto) Absolute Neuts (auto) Absolute Nucleated RBC Nucleated RBC % (auto) Smear Tech's Comments PT INR O2 Saturation 98.0 ABG pH at Pt Temp 7.14 L* ABG pCO2 at Pt Temp 172 H* ABG pO2 at Pt Temp 99 ABG HCO3 60 H ABG Base Excess (Actual) 23.4 VBG pH VBG pCO2 VBG pO2 VBG HCO3 VBG O2 Saturation VBG Base Excess Sodium 146 H Potassium 3.7 Chloride 96 Carbon Dioxide 39 H Anion Gap 15 BUN 23 H Creatinine 0.77 Estim Creat Clear Calc 63.7 Estimated GFR > 60 POC Glucose 137 H Random Glucose 157 H Lactic Acid Calcium 8.7 Phosphorus Magnesium Total Bilirubin AST ALT Alkaline Phosphatase Total Protein Albumin Urine Color Urine Appearance Urine pH Ur Specific [place] Urine Protein Urine Glucose (UA) Urine Ketones Urine Blood Urine Nitrite Ur Leukocyte Esterase Urine RBC Urine WBC Ur Squamous Epith Cells Urine Bacteria Hyaline Casts 05/11/22 05/11/22 05/11/22 17:35 17:35 17:36 WBC 7.6 RBC 3.66 L D Hgb 10.7 L Hct 37.7 D MCV 103.0 H MCH 29.2 MCHC 28.4 L RDW 14.3 Plt Count 186 MPV 9.5 Immature Gran % (Auto) 0.7 H Neut % (Auto) 87.2 H Lymph % (Auto) 6.1 L [place] % (Auto) 5.2 Eos % (Auto) 0.5 Baso % (Auto) 0.3 Lymph # (Auto) 0.5 L [place] # (Auto) 0.4 Eos # (Auto) 0.0 Baso # (Auto) 0.0 Abs Immat Gran (auto) 0.05 H Absolute Neuts (auto) 6.6 Absolute Nucleated RBC 0.000 Nucleated RBC % (auto) 0.0 Smear Tech's Comments PT INR O2 Saturation ABG pH at Pt Temp ABG pCO2 at Pt Temp ABG pO2 at Pt Temp ABG HCO3 ABG Base Excess (Actual) VBG pH 7.42 VBG pCO2 83 VBG pO2 44 VBG HCO3 54 H VBG O2 Saturation 81.0 VBG Base Excess 25.6 Sodium Potassium Chloride Carbon Dioxide Anion Gap BUN Creatinine Estim Creat Clear Calc Estimated GFR POC Glucose Random Glucose Lactic Acid 1.2 Calcium Phosphorus Magnesium Total Bilirubin AST ALT Alkaline Phosphatase Total Protein Albumin Urine Color Urine Appearance Urine pH Ur Specific [place] Urine Protein Urine Glucose (UA) Urine Ketones Urine Blood Urine Nitrite Ur Leukocyte Esterase Urine RBC Urine WBC Ur Squamous Epith Cells Urine Bacteria Hyaline Casts 05/11/22 05/11/22 05/12/22 23:13 23:14 01:03 WBC RBC Hgb Hct MCV MCH MCHC RDW Plt Count MPV Immature Gran % (Auto) Neut % (Auto) Lymph % (Auto) [place] % (Auto) Eos % (Auto) Baso % (Auto) Lymph # (Auto) [place] # (Auto) Eos # (Auto) Baso # (Auto) Abs Immat Gran (auto) Absolute Neuts (auto) Absolute Nucleated RBC Nucleated RBC % (auto) Smear Tech's Comments PT INR O2 Saturation ABG pH at Pt Temp ABG pCO2 at Pt Temp ABG pO2 at Pt Temp ABG HCO3 ABG Base Excess (Actual) VBG pH 7.56 H VBG pCO2 46 VBG pO2 45 VBG HCO3 41 H VBG O2 Saturation 84.0 VBG Base Excess 17.7 Sodium 144 Potassium 2.9 L D Chloride 96 Carbon Dioxide 34 H Anion Gap 17 BUN 25 H Creatinine 0.81 Estim Creat Clear Calc 60.5 Estimated GFR > 60 POC Glucose Random Glucose 218 H Lactic Acid Calcium 8.7 Phosphorus 1.7 L Magnesium 2.0 Total Bilirubin 1.0 AST 17 D ALT 16 Alkaline Phosphatase 69 Total Protein 5.8 L Albumin 3.1 L Urine Color Yellow Urine Appearance Clear Urine pH >= 9.0 Ur Specific [place] 1.015 Urine Protein 30 (1+) H Urine Glucose (UA) Negative Urine Ketones 15 Urine Blood Small (1+) H Urine Nitrite Negative Ur Leukocyte Esterase Small (1+) H Urine RBC >20 H Urine WBC 21-50 H Ur Squamous Epith Cells 0-2 Urine Bacteria 1+ Hyaline Casts 0-2 05/12/22 05/12/22 05/12/22 05:25 05:25 05:25 WBC 7.3 RBC 3.75 L Hgb 11.1 L Hct 36.3 L MCV 96.8 D MCH 29.6 MCHC 30.6 L RDW 14.1 Plt Count 216 MPV 9.4 Immature Gran % (Auto) 0.7 H Neut % (Auto) 94.6 H Lymph % (Auto) 2.9 L [place] % (Auto) 1.8 L Eos % (Auto) 0.0 Baso % (Auto) 0.0 Lymph # (Auto) 0.2 L [place] # (Auto) 0.1 Eos # (Auto) 0.0 Baso # (Auto) 0.0 Abs Immat Gran (auto) 0.05 H Absolute Neuts (auto) 6.9 Absolute Nucleated RBC 0.000 Nucleated RBC % (auto) 0.0 Smear Tech's Comments VERIFIED PT 29.3 H INR 2.5 H O2 Saturation ABG pH at Pt Temp ABG pCO2 at Pt Temp ABG pO2 at Pt Temp ABG HCO3 ABG Base Excess (Actual) VBG pH VBG pCO2 VBG pO2 VBG HCO3 VBG O2 Saturation VBG Base Excess Sodium 142 Potassium 2.7 L Chloride 95 L Carbon Dioxide 33 H Anion Gap 17 BUN 24 H Creatinine 0.80 Estim Creat Clear Calc 69.5 Estimated GFR > 60 POC Glucose Random Glucose 201 H Lactic Acid Calcium 8.7 Phosphorus 1.7 L Magnesium 2.0 Total Bilirubin 0.9 AST 15 ALT 14 Alkaline Phosphatase 70 Total Protein 5.8 L Albumin 3.2 L Urine Color Urine Appearance Urine pH Ur Specific [place] Urine Protein Urine Glucose (UA) Urine Ketones Urine Blood Urine Nitrite Ur Leukocyte Esterase Urine RBC Urine WBC Ur Squamous Epith Cells Urine Bacteria Hyaline Casts 05/12/22 05:38 WBC RBC Hgb Hct MCV MCH MCHC RDW Plt Count MPV Immature Gran % (Auto) Neut % (Auto) Lymph % (Auto) [place] % (Auto) Eos % (Auto) Baso % (Auto) Lymph # (Auto) [place] # (Auto) Eos # (Auto) Baso # (Auto) Abs Immat Gran (auto) Absolute Neuts (auto) Absolute Nucleated RBC Nucleated RBC % (auto) Smear Tech's Comments PT INR O2 Saturation ABG pH at Pt Temp ABG pCO2 at Pt Temp ABG pO2 at Pt Temp ABG HCO3 ABG Base Excess (Actual) VBG pH 7.56 H VBG pCO2 37 VBG pO2 64 VBG HCO3 34 H VBG O2 Saturation 96.0 VBG Base Excess 11.7 Sodium Potassium Chloride Carbon Dioxide Anion Gap BUN Creatinine Estim Creat Clear Calc Estimated GFR POC Glucose Random Glucose Lactic Acid Calcium Phosphorus Magnesium Total Bilirubin AST ALT Alkaline Phosphatase Total Protein Albumin Urine Color Urine Appearance Urine pH Ur Specific [place] Urine Protein Urine Glucose (UA) Urine Ketones Urine Blood Urine Nitrite Ur Leukocyte Esterase Urine RBC Urine WBC Ur Squamous Epith Cells Urine Bacteria Hyaline Casts Microbiology Microbiology Results: Microbiology 02/21/22 12:42 Blood - Venous Blood Culture - Final No growth after 5 days. 02/21/22 12:36 Blood - Venous Blood Culture - Final No growth after 5 days. 02/20/22 05:43 Blood - Venous Blood Culture - Final Coag negative Staphylococcus 02/20/22 05:43 Blood - Venous Blood Culture - Final Coag negative Staphylococcus 02/19/22 18:54 Urine clean catch - Urine cardona top Urine Culture - Final Quality Stroke Does the patient have a stroke diagnosis?: No VTE Prior VTE?: No VTE Risk Level:: Medical - moderate - high VTE Device Contraindication: Treatment Not Indicated VTE Drug Contraindication: Treatment Not Indicated Critical Care Time Critical Care Time (minutes): 120
[2022-05-12] MEDS: Docusate Sodium 100 MG/10 ML LIQUID PO (09:49)
[2022-05-12] MEDS: polyethylene glycoL 3350 17 GM POWD.PACK PO (09:49)
[2022-05-12] MEDS: dilTIAZem HCL 125 MG in 0.9 % Sodium Chloride 100 ML 12 MG IVCONT (09:49)
[2022-05-12] MEDS: Chlorhexidine Gluc Oral Rinse 15 ML MOUTHWASH BUCCAL ×3 (09:49→20:00)
[2022-05-12] MEDS: Nystatin Powder 15 GM BOTTLE 1 APPL TOPICAL ×3 (09:50→21:05)
--- NOTE | 2022-05-12 10:16 | MHC.CM.PN ---
Pt intubated in ICU, CM continues to follow for LTC placement as appropriate.
[2022-05-12] MEDS: acetaZOLAMIDE sodium 500 MG VIAL IVPUSH ×2 (10:39→17:10)
[2022-05-12] MEDS: Metoprolol Tartrate 25 MG TABLET PO ×2 (10:40→19:59)
--- NOTE | 2022-05-12 11:03 | MHC.CLN ---
PT IS CURRENTLY INTUBATED AND SEDATED DIET IS NPO DISCUSSED AT ROUNDS; TO START TF TODAY PER MD RECOMMEND TF PROMOTE AT MAX GOAL RATE 55ML/HR WITH 120ML FREE WATER FLUSHES Q 8 HRS TO PROVIDE 1320KCALS (1835KCALS WITH SEDATION; 31KCALS/KG), 82G PROTEIN (1.4G/KG), 1467ML TOTAL FREE WATER FROM FORMULA AND FLUSHES (25ML/KG) MONITOR TOLERANCE RESIDUALS AND LYTES SEE FULL CLINICAL NUTRITION ASSESSMENT
--- NOTE | 2022-05-12 12:08 | P.CDIC_ITS ---
CDI Concurrent Query Documentation Clarification: PHYSICIAN'S DOCUMENTATION REQUEST Date of Query: 05/12/22 1208 Patient Name: Tobias Anguiano Admit Date: 02/20/22 Dear Doctor, A review of the medical record indicates additional documentation may be needed. Please review below and update the documentation accordingly. Clinical Indicators: The following information is noted in the medical record: Risk Factors/Clinical Indicators/Treatments per MD progress note 05/11/22: rapid response patient was noted to be unresponsive Prior mental status on 05/11/22 per MD note was Alert & oriented to self and place Based on the above, could you clarify in the Progress Notes which, if any of the following, best reflects the patient's level of consciousness? * Unconscious * Comatose * Persistent vegetative state * Transient level of awareness * Other (please specify) * Unable to determine Use of terms such as suspected, likely, concern for, or probable (associated wit h a specific diagnosis that is being evaluated, monitored, or treated as if it exists) are acceptable and can be coded in the inpatient setting, when documented at the time of discharge. Thank you, Sania Dash RN Extension: [phone] Please use your independent medical judgment in providing your response. THIS QUERY IS PART OF THE PERMANENT MEDICAL RECORD Provider Response: Other Other Diagnosis: In response to the query, I wasn't there at the time, but Dr. Duque noted that the patient was 'unresponsive except to painful stimuli.'??That would classify as unconscious .
[2022-05-12] MEDS: dilTIAZem HCL 60 MG TABLET G-TUBE (17:10)
[2022-05-12] MEDS: methylPREDNISolone Sod Succ 40 MG/ML VIAL IVPUSH (17:10)
[2022-05-12] MEDS: Warfarin Sodium 3 MG TABLET PO (17:12)
--- NOTE | 2022-05-12 17:33 | P.CONPL_ITS ---
History of Present Illness History of Present Illness Consult date: 05/12/22 Requesting physician: Dante Varma Chief complaint: Afib Narrative: I was us to see this patient because abnormality on the chest x-ray. This is 81 years old female, initially admitted to the hospital for urinary tract infection, and persistent atrial fibrillation. Since yesterday there was change in mental status and increased respiratory distress. Arterial blood gases showed very severe degree of the respiratory failure with PCO2 of 172, PO2 99 and bicarbonate 60 Patient has been moved to intensive care unit, being managed by Dr. Dante varma , She has been intubated and is on the vent support. Chest x-ray this morning shows diffuse opacification of the right lung, left lung is not visible because of rotation.. This patient does have past history of atrial fibrillation chronic congestive heart failure, but no chronic obstructive pulmonary disease. Review of Systems Review of Systems: Yes Unobtainable due to mental condition (Patient on vent. Support) PMFSH Past Medical History Medical History (Updated 05/12/22 @ 17:44 by Richelle Rapp MD) Acute respiratory distress syndrome (ARDS) Afib Anxiety CHF (congestive heart failure) Family History Family history: reviewed and not pertinent Surgical History Surgical History H/O hernia repair History of orthopedic surgery Social History Social History Household Members: Spouse and Children Do you presently have visiting nurse or other home services: No Alcohol intake: never Patient Tobacco Use Status: Never used Tobacco service: No Current occupational status: retired [employer] Allergies Allergy/AdvReac Type Severity Reaction Status Date / Time No Known Allergies Allergy Unverified 03/22/20 19:41 [No Known Allergies*] Active Medications: Current Medications Acetazolamide (Acetazolamide Sodium 500 Mg Vial) 500 mg IVPUSH Q8H NORM Last Admin: 05/12/22 17:10 Dose: 500 mg Albuterol/Ipratropium (Albuterol/Iprat 2.5/0.5mg 3 Ml Ampul.Neb) 3 ml INHALE RQ4H WHILE AWAKE NORM Last Admin: 05/12/22 15:55 Dose: 3 ml Artificial Tears (Artificial Tears 15 Ml Drops) 1 drop EYE-BOTH Q4H PRN PRN Reason: Dry Eyes Chlorhexidine Gluconate (Chlorhexidine Gluc Oral Rinse 15 Ml Mouthwash) 15 ml BUCCAL TID FORMERLY [facility], 1928–1983 Last Admin: 05/12/22 14:38 Dose: 15 ml Diltiazem HCl (Diltiazem Hcl 30 Mg Tablet) 30 mg G-TUBE Q8H NORM; Protocol Docusate Sodium (Docusate Sodium 100 Mg/10 Ml Liquid) 100 mg PO BID FORMERLY [facility], [facility]1983 Last Admin: 05/12/22 09:49 Dose: 100 mg Gabapentin (Gabapentin 100 Mg Capsule) 200 mg PO BID FORMERLY [facility], [facility]–1983 Last Admin: 05/11/22 21:48 Dose: Not Given Propofol (Diprivan) 1,000 mg in 100 mls @ 0 mls/hr IVCONT .Q0M NORM; Protocol Last Admin: 05/12/22 14:35 Dose: 40 mcg/kg/min, 19.51 mls/hr Norepinephrine Bitartrate (Levophed) 8 mg in 250 mls @ 0 mls/hr IVCONT .Q0M [facility]LY [facility], [facility]–1983; Protocol Last Titration: 05/12/22 17:25 Dose: 0.08 mcg/kg/min, 12.2 mls/hr Diltiazem HCl 125 mg/ Sodium (Chloride) 125 mls @ 0 mls/hr IVCONT .Q0M FOR[facility]LY [facility], [facility]–1983; Protocol Last Titration: 05/12/22 12:00 Dose: 0 mg/hr, 0 mls/hr Lidocaine (Lidocaine 4 % Patch Adh..Patch) 1 patch TRANSDERMA DAILY FOR[facility]LY [facility], [facility]; Protocol Last Admin: 05/11/22 11:02 Dose: 1 patch Methylprednisolone Sodium Succinate (Methylprednisolone Sod Succ 40 Mg/Ml Vial) 40 mg IVPUSH Q8H [facility], [facility] Last Admin: 05/12/22 17:10 Dose: 40 mg Metoprolol Tartrate (Metoprolol Tartrate 25 Mg Tablet) 25 mg PO BID NORM; Protocol Last Admin: 05/12/22 10:40 Dose: 25 mg Nystatin (Nystatin Powder 15 Gm Bottle) 1 appl TOPICAL TID FOR[facility], [facility]; Protocol Last Admin: 05/12/22 15:50 Dose: 1 appl Ondansetron HCl (Ondansetron Odt 4 Mg Tab.Rapdis) 4 mg TRANSLINGU Q6H PRN PRN Reason: Nausea and Vomiting Last Admin: 05/11/22 11:07 Dose: 4 mg Oxycodone HCl (Oxycodone Hcl Immed Release 5 Mg Tablet) 2.5 mg PO Q6H PRN PRN Reason: Pain, Severe (Pain Scale 7-10) Last Admin: 05/11/22 11:03 Dose: 2.5 mg Pantoprazole Sodium (Pantoprazole Sodium 40 Mg/10 Ml Vial) 40 mg IVPUSH DAILY@0630 FOR[facility], [facility] Last Admin: 05/12/22 05:20 Dose: 40 mg Pharmacy Consult (Consult Rx Perform Med Rec) 1 each MISCELLANE ONCE PRN PRN Reason: Consult order Polyethylene Glycol (Polyethylene Glycol 3350 17 Gm Powd.Pack) 17 gm PO DAILY FOR[facility], [facility]–1983 Last Admin: 05/12/22 09:49 Dose: 17 gm Warfarin Sodium (Warfarin Sodium 3 Mg Tablet) 3 mg PO DAILY@1800 FOR[facility], [facility]1983 Last Admin: 05/12/22 17:12 Dose: 3 mg Home Medications Medication Instructions Recorded Confirmed Last Taken Type bumetanide 1 mg tablet 3 mg PO BID 11/16/20 02/19/22 02/18/22 History metoprolol tartrate 25 mg tablet 25 mg PO BID 11/16/20 02/19/22 02/18/22 History potassium chloride 20 mEq 3 tab PO DAILY 11/16/20 02/19/22 02/18/22 History tablet,extended release(part/cryst) sertraline 100 mg tablet 1 tab PO BEDTIME 11/16/20 02/19/22 02/18/22 History warfarin 1 mg tablet 1 mg PO MOTUWETHFR@1800 11/16/20 02/19/22 02/18/22 History acetaminophen 325 mg tablet 650 mg PO Q6H PRN Pain 02/19/22 02/19/22 Unknown History (Tylenol) cranberry fruit concentrate 250 mg 250 mg PO TID 02/19/22 02/19/22 Unknown History chewable tablet (Azo Cranberry) loperamide 2 mg tablet 2 mg PO Q6H PRN Diarrhea 02/19/22 02/19/22 Unknown History warfarin 1 mg tablet 2 mg PO SUSA@1800 02/19/22 02/19/22 02/16/22 History Physical Exam Vital Signs: Vital Signs: Last Vital Signs Temp 99.9 F 05/12/22 17:00 Pulse 120 H 05/12/22 17:00 Resp 16 05/12/22 17:00 BP 80/37 L 05/12/22 17:00 Pulse Ox 93 05/12/22 17:00 O2 Del Method 05/12/22 17:00 O2 Flow Rate 100 05/11/22 17:01 FiO2 30 05/12/22 17:00 BMI result Body Mass Index 37.0 Const: Other: This elderly patient is intubated, on vent support. Had a rotated to the left. Right chest : Percussion note is resonant, there is dullness over the lower 1/3 of the chest. Breath sounds are audible in the upper 2/3 of the chest much decreased over the lower 1/3. No wheezes or crepitations are heard. On the left chest there are good breath sounds except over the basilar area. Results Laboratory Findings CBC and BMP: 05/12/22 05:25 05/12/22 05:25 ABG, PT/INR, D-dimer: PT/INR, D-dimer PT 29.3 SEC (10.0-13.1) H 05/12/22 05:25 INR 2.5 (0.9-1.1) H 05/12/22 05:25 Abnormal lab findings: Abnormal Labs 02/19/22 02/19/22 02/19/22 11:41 11:41 11:41 WBC RBC 4.02 L Hgb Hct 36.6 L MCV MCHC Plt Count MPV 9.2 L Immature Gran % (Auto) Neut % (Auto) 75.4 H Lymph % (Auto) 16.1 L Kerr % (Auto) Lymph # (Auto) 0.9 L Abs Immat Gran (auto) PT 39.3 H INR 3.3 H ABG pH at Pt Temp ABG pCO2 at Pt Temp ABG HCO3 VBG pH VBG HCO3 Sodium Potassium 2.8 L Chloride Carbon Dioxide 33 H Anion Gap BUN 18 H POC Glucose Random Glucose Calcium 7.6 L Phosphorus Magnesium 1.5 L Troponin I High Sens B-Natriuretic Peptide Total Protein 5.5 L Albumin 3.0 L Urine Protein Urine Blood Urine Nitrite Ur Leukocyte Esterase Urine RBC Urine WBC 02/19/22 02/19/22 02/20/22 18:54 21:23 03:27 WBC RBC Hgb Hct MCV MCHC Plt Count MPV Immature Gran % (Auto) Neut % (Auto) Lymph % (Auto) Kerr % (Auto) Lymph # (Auto) Abs Immat Gran (auto) PT INR ABG pH at Pt Temp ABG pCO2 at Pt Temp ABG HCO3 VBG pH VBG HCO3 Sodium Potassium 3.1 L Chloride Carbon Dioxide 30 H Anion Gap BUN 19 H POC Glucose Random Glucose Calcium 7.6 L Phosphorus Magnesium Troponin I High Sens B-Natriuretic Peptide Total Protein Albumin Urine Protein Urine Blood Moderate (2+) H Urine Nitrite Positive H Ur Leukocyte Esterase Moderate (2+) H Urine RBC 11-20 H Urine WBC 21-50 H 02/20/22 02/20/22 02/21/22 05:42 08:28 06:02 WBC RBC Hgb Hct MCV MCHC Plt Count MPV Immature Gran % (Auto) Neut % (Auto) Lymph % (Auto) Kerr % (Auto) Lymph # (Auto) Abs Immat Gran (auto) PT 34.7 H INR 2.9 H ABG pH at Pt Temp ABG pCO2 at Pt Temp ABG HCO3 VBG pH VBG HCO3 Sodium Potassium Chloride Carbon Dioxide 31 H Anion Gap BUN 20 H POC Glucose Random Glucose Calcium 8.1 L D Phosphorus Magnesium Troponin I High Sens 17.2 H B-Natriuretic Peptide 141 H Total Protein Albumin Urine Protein Urine Blood Urine Nitrite Ur Leukocyte Esterase Urine RBC Urine WBC 02/21/22 02/22/22 02/23/22 09:05 06:36 06:17 WBC RBC Hgb Hct MCV MCHC Plt Count MPV Immature Gran % (Auto) Neut % (Auto) Lymph % (Auto) Kerr % (Auto) Lymph # (Auto) Abs Immat Gran (auto) PT 26.1 H 20.0 H 14.9 H INR 2.2 H 1.7 H 1.3 H ABG pH at Pt Temp ABG pCO2 at Pt Temp ABG HCO3 VBG pH VBG HCO3 Sodium Potassium Chloride Carbon Dioxide Anion Gap BUN POC Glucose Random Glucose Calcium Phosphorus Magnesium Troponin I High Sens B-Natriuretic Peptide Total Protein Albumin Urine Protein Urine Blood Urine Nitrite Ur Leukocyte Esterase Urine RBC Urine WBC 02/24/22 02/25/22 02/26/22 06:48 10:28 06:11 WBC RBC Hgb Hct MCV MCHC Plt Count MPV Immature Gran % (Auto) Neut % (Auto) Lymph % (Auto) Kerr % (Auto) Lymph # (Auto) Abs Immat Gran (auto) PT 15.1 H 17.4 H 16.6 H INR 1.3 H 1.5 H 1.4 H ABG pH at Pt Temp ABG pCO2 at Pt Temp ABG HCO3 VBG pH VBG HCO3 Sodium Potassium Chloride Carbon Dioxide Anion Gap BUN POC Glucose Random Glucose Calcium Phosphorus Magnesium Troponin I High Sens B-Natriuretic Peptide Total Protein Albumin Urine Protein Urine Blood Urine Nitrite Ur Leukocyte Esterase Urine RBC Urine WBC 02/27/22 02/28/22 03/01/22 05:51 06:16 09:38 WBC RBC Hgb Hct MCV MCHC Plt Count MPV Immature Gran % (Auto) Neut % (Auto) Lymph % (Auto) Kerr % (Auto) Lymph # (Auto) Abs Immat Gran (auto) PT 19.6 H 19.5 H 19.3 H INR 1.7 H 1.7 H 1.6 H ABG pH at Pt Temp ABG pCO2 at Pt Temp ABG HCO3 VBG pH VBG HCO3 Sodium Potassium Chloride Carbon Dioxide Anion Gap BUN POC Glucose Random Glucose Calcium Phosphorus Magnesium Troponin I High Sens B-Natriuretic Peptide Total Protein Albumin Urine Protein Urine Blood Urine Nitrite Ur Leukocyte Esterase Urine RBC Urine WBC 03/02/22 03/03/22 03/04/22 06:37 05:41 06:52 WBC RBC Hgb Hct MCV MCHC Plt Count MPV Immature Gran % (Auto) Neut % (Auto) Lymph % (Auto) Kerr % (Auto) Lymph # (Auto) Abs Immat Gran (auto) PT 19.0 H 24.8 H 29.0 H INR 1.6 H 2.1 H 2.4 H ABG pH at Pt Temp ABG pCO2 at Pt Temp ABG HCO3 VBG pH VBG HCO3 Sodium Potassium Chloride Carbon Dioxide Anion Gap BUN POC Glucose Random Glucose Calcium Phosphorus Magnesium Troponin I High Sens B-Natriuretic Peptide Total Protein Albumin Urine Protein Urine Blood Urine Nitrite Ur Leukocyte Esterase Urine RBC Urine WBC 03/05/22 03/05/22 03/05/22 06:20 06:20 06:20 WBC RBC 3.29 L Hgb 10.1 L Hct 31.6 L MCV MCHC Plt Count MPV Immature Gran % (Auto) Neut % (Auto) Lymph % (Auto) Kerr % (Auto) Lymph # (Auto) Abs Immat Gran (auto) PT 26.1 H INR 2.2 H ABG pH at Pt Temp ABG pCO2 at Pt Temp ABG HCO3 VBG pH VBG HCO3 Sodium Potassium Chloride Carbon Dioxide 30 H Anion Gap BUN 33 H D POC Glucose Random Glucose 120 H Calcium 8.1 L Phosphorus Magnesium Troponin I High Sens B-Natriuretic Peptide Total Protein Albumin Urine Protein Urine Blood Urine Nitrite Ur Leukocyte Esterase Urine RBC Urine WBC 03/06/22 03/07/22 03/08/22 06:25 06:22 14:19 WBC RBC Hgb Hct MCV MCHC Plt Count MPV Immature Gran % (Auto) Neut % (Auto) Lymph % (Auto) Kerr % (Auto) Lymph # (Auto) Abs Immat Gran (auto) PT 26.6 H 17.6 H INR 2.2 H 1.5 H ABG pH at Pt Temp ABG pCO2 at Pt Temp ABG HCO3 VBG pH VBG HCO3 Sodium Potassium Chloride Carbon Dioxide Anion Gap BUN 34 H POC Glucose Random Glucose Calcium 8.1 L Phosphorus Magnesium Troponin I High Sens B-Natriuretic Peptide Total Protein Albumin Urine Protein Urine Blood Urine Nitrite Ur Leukocyte Esterase Urine RBC Urine WBC 03/09/22 03/09/22 03/10/22 06:35 06:35 06:18 WBC RBC Hgb Hct MCV MCHC Plt Count MPV Immature Gran % (Auto) Neut % (Auto) Lymph % (Auto) Kerr % (Auto) Lymph # (Auto) Abs Immat Gran (auto) PT 18.2 H 19.7 H INR 1.6 H 1.7 H ABG pH at Pt Temp ABG pCO2 at Pt Temp ABG HCO3 VBG pH VBG HCO3 Sodium Potassium Chloride 109 H Carbon Dioxide Anion Gap BUN 28 H POC Glucose Random Glucose Calcium 8.2 L Phosphorus Magnesium Troponin I High Sens B-Natriuretic Peptide Total Protein Albumin Urine Protein Urine Blood Urine Nitrite Ur Leukocyte Esterase Urine RBC Urine WBC 03/11/22 03/12/22 03/13/22 06:29 05:58 05:50 WBC RBC Hgb Hct MCV MCHC Plt Count MPV Immature Gran % (Auto) Neut % (Auto) Lymph % (Auto) Kerr % (Auto) Lymph # (Auto) Abs Immat Gran (auto) PT 23.5 H 29.1 H 38.6 H INR 2.0 H 2.4 H 3.2 H ABG pH at Pt Temp ABG pCO2 at Pt Temp ABG HCO3 VBG pH VBG HCO3 Sodium Potassium Chloride Carbon Dioxide Anion Gap BUN POC Glucose Random Glucose Calcium Phosphorus Magnesium Troponin I High Sens B-Natriuretic Peptide Total Protein Albumin Urine Protein Urine Blood Urine Nitrite Ur Leukocyte Esterase Urine RBC Urine WBC 03/14/22 03/15/22 03/16/22 05:58 06:01 06:01 WBC RBC Hgb Hct MCV MCHC Plt Count MPV Immature Gran % (Auto) Neut % (Auto) Lymph % (Auto) Kerr % (Auto) Lymph # (Auto) Abs Immat Gran (auto) PT 23.9 H 22.3 H 25.3 H INR 2.0 H 1.9 H 2.1 H ABG pH at Pt Temp ABG pCO2 at Pt Temp ABG HCO3 VBG pH VBG HCO3 Sodium Potassium Chloride Carbon Dioxide Anion Gap BUN POC Glucose Random Glucose Calcium Phosphorus Magnesium Troponin I High Sens B-Natriuretic Peptide Total Protein Albumin Urine Protein Urine Blood Urine Nitrite Ur Leukocyte Esterase Urine RBC Urine WBC 03/17/22 03/18/22 03/19/22 05:22 05:44 05:19 WBC RBC Hgb Hct MCV MCHC Plt Count MPV Immature Gran % (Auto) Neut % (Auto) Lymph % (Auto) Kerr % (Auto) Lymph # (Auto) Abs Immat Gran (auto) PT 28.9 H 29.5 H INR 2.4 H 2.5 H ABG pH at Pt Temp ABG pCO2 at Pt Temp ABG HCO3 VBG pH VBG HCO3 Sodium Potassium 5.8 H Chloride Carbon Dioxide Anion Gap BUN 23 H POC Glucose Random Glucose Calcium 8.0 L Phosphorus Magnesium Troponin I High Sens B-Natriuretic Peptide Total Protein Albumin Urine Protein Urine Blood Urine Nitrite Ur Leukocyte Esterase Urine RBC Urine WBC 03/19/22 03/20/22 03/20/22 09:20 05:27 07:51 WBC RBC Hgb Hct MCV MCHC Plt Count MPV Immature Gran % (Auto) Neut % (Auto) Lymph % (Auto) Kerr % (Auto) Lymph # (Auto) Abs Immat Gran (auto) PT 25.2 H 23.8 H INR 2.1 H 2.0 H ABG pH at Pt Temp ABG pCO2 at Pt Temp ABG HCO3 VBG pH VBG HCO3 Sodium Potassium Chloride Carbon Dioxide 32 H Anion Gap 11 L BUN 23 H POC Glucose Random Glucose Calcium 8.2 L Phosphorus Magnesium Troponin I High Sens B-Natriuretic Peptide Total Protein Albumin Urine Protein Urine Blood Urine Nitrite Ur Leukocyte Esterase Urine RBC Urine WBC 03/21/22 03/22/22 03/23/22 05:25 05:58 05:32 WBC RBC Hgb Hct MCV MCHC Plt Count MPV Immature Gran % (Auto) Neut % (Auto) Lymph % (Auto) Kerr % (Auto) Lymph # (Auto) Abs Immat Gran (auto) PT 27.7 H 33.0 H 27.9 H INR 2.3 H 2.8 H 2.3 H ABG pH at Pt Temp ABG pCO2 at Pt Temp ABG HCO3 VBG pH VBG HCO3 Sodium Potassium Chloride Carbon Dioxide Anion Gap BUN POC Glucose Random Glucose Calcium Phosphorus Magnesium Troponin I High Sens B-Natriuretic Peptide Total Protein Albumin Urine Protein Urine Blood Urine Nitrite Ur Leukocyte Esterase Urine RBC Urine WBC 03/24/22 03/25/22 03/26/22 05:22 05:46 05:31 WBC RBC Hgb Hct MCV MCHC Plt Count MPV Immature Gran % (Auto) Neut % (Auto) Lymph % (Auto) Kerr % (Auto) Lymph # (Auto) Abs Immat Gran (auto) PT 27.1 H 30.6 H 32.5 H INR 2.3 H 2.6 H 2.7 H ABG pH at Pt Temp ABG pCO2 at Pt Temp ABG HCO3 VBG pH VBG HCO3 Sodium Potassium Chloride Carbon Dioxide Anion Gap BUN POC Glucose Random Glucose Calcium Phosphorus Magnesium Troponin I High Sens B-Natriuretic Peptide Total Protein Albumin Urine Protein Urine Blood Urine Nitrite Ur Leukocyte Esterase Urine RBC Urine WBC 03/27/22 03/28/22 03/28/22 05:36 05:38 07:46 WBC RBC Hgb Hct MCV MCHC Plt Count MPV Immature Gran % (Auto) Neut % (Auto) Lymph % (Auto) Kerr % (Auto) Lymph # (Auto) Abs Immat Gran (auto) PT 33.9 H 28.6 H INR 2.8 H 2.4 H ABG pH at Pt Temp ABG pCO2 at Pt Temp ABG HCO3 VBG pH VBG HCO3 Sodium Potassium Chloride Carbon Dioxide 32 H Anion Gap BUN 19 H POC Glucose Random Glucose Calcium 8.0 L Phosphorus Magnesium Troponin I High Sens B-Natriuretic Peptide Total Protein Albumin Urine Protein Urine Blood Urine Nitrite Ur Leukocyte Esterase Urine RBC Urine WBC 03/29/22 03/30/22 03/30/22 05:27 06:02 07:49 WBC RBC Hgb Hct MCV MCHC Plt Count MPV Immature Gran % (Auto) Neut % (Auto) Lymph % (Auto) Kerr % (Auto) Lymph # (Auto) Abs Immat Gran (auto) PT 30.4 H 31.6 H 30.0 H INR 2.5 H 2.6 H 2.5 H ABG pH at Pt Temp ABG pCO2 at Pt Temp ABG HCO3 VBG pH VBG HCO3 Sodium Potassium Chloride Carbon Dioxide Anion Gap BUN POC Glucose Random Glucose Calcium Phosphorus Magnesium Troponin I High Sens B-Natriuretic Peptide Total Protein Albumin Urine Protein Urine Blood Urine Nitrite Ur Leukocyte Esterase Urine RBC Urine WBC 03/31/22 04/01/22 04/01/22 05:11 05:20 05:20 WBC RBC Hgb Hct MCV MCHC Plt Count MPV Immature Gran % (Auto) Neut % (Auto) Lymph % (Auto) Kerr % (Auto) Lymph # (Auto) Abs Immat Gran (auto) PT 30.1 H 29.0 H 28.3 H INR 2.5 H 2.4 H 2.4 H ABG pH at Pt Temp ABG pCO2 at Pt Temp ABG HCO3 VBG pH VBG HCO3 Sodium Potassium Chloride Carbon Dioxide Anion Gap BUN POC Glucose Random Glucose Calcium Phosphorus Magnesium Troponin I High Sens B-Natriuretic Peptide Total Protein Albumin Urine Protein Urine Blood Urine Nitrite Ur Leukocyte Esterase Urine RBC Urine WBC 04/02/22 04/03/22 04/04/22 05:26 05:45 05:35 WBC RBC Hgb Hct MCV MCHC Plt Count MPV Immature Gran % (Auto) Neut % (Auto) Lymph % (Auto) Kerr % (Auto) Lymph # (Auto) Abs Immat Gran (auto) PT 37.6 H 25.8 H 27.4 H INR 3.1 H 2.2 H 2.3 H ABG pH at Pt Temp ABG pCO2 at Pt Temp ABG HCO3 VBG pH VBG HCO3 Sodium Potassium Chloride Carbon Dioxide Anion Gap BUN POC Glucose Random Glucose Calcium Phosphorus Magnesium Troponin I High Sens B-Natriuretic Peptide Total Protein Albumin Urine Protein Urine Blood Urine Nitrite Ur Leukocyte Esterase Urine RBC Urine WBC 04/05/22 04/06/22 04/07/22 05:47 05:55 05:39 WBC RBC Hgb Hct MCV MCHC Plt Count MPV Immature Gran % (Auto) Neut % (Auto) Lymph % (Auto) Kerr % (Auto) Lymph # (Auto) Abs Immat Gran (auto) PT 36.0 H 38.3 H 36.2 H INR 3.0 H 3.2 H 3.0 H ABG pH at Pt Temp ABG pCO2 at Pt Temp ABG HCO3 VBG pH VBG HCO3 Sodium Potassium Chloride Carbon Dioxide Anion Gap BUN POC Glucose Random Glucose Calcium Phosphorus Magnesium Troponin I High Sens B-Natriuretic Peptide Total Protein Albumin Urine Protein Urine Blood Urine Nitrite Ur Leukocyte Esterase Urine RBC Urine WBC 04/08/22 04/09/22 04/10/22 05:45 05:25 11:14 WBC RBC Hgb Hct MCV MCHC Plt Count MPV Immature Gran % (Auto) Neut % (Auto) Lymph % (Auto) Kerr % (Auto) Lymph # (Auto) Abs Immat Gran (auto) PT 30.3 H 27.6 H 26.4 H INR 2.5 H 2.3 H 2.2 H ABG pH at Pt Temp ABG pCO2 at Pt Temp ABG HCO3 VBG pH VBG HCO3 Sodium Potassium Chloride Carbon Dioxide Anion Gap BUN POC Glucose Random Glucose Calcium Phosphorus Magnesium Troponin I High Sens B-Natriuretic Peptide Total Protein Albumin Urine Protein Urine Blood Urine Nitrite Ur Leukocyte Esterase Urine RBC Urine WBC 04/11/22 04/11/22 04/12/22 05:21 05:21 10:30 WBC RBC Hgb Hct MCV MCHC Plt Count MPV Immature Gran % (Auto) Neut % (Auto) Lymph % (Auto) Kerr % (Auto) Lymph # (Auto) Abs Immat Gran (auto) PT 28.9 H 27.0 H INR 2.4 H 2.3 H ABG pH at Pt Temp ABG pCO2 at Pt Temp ABG HCO3 VBG pH VBG HCO3 Sodium Potassium Chloride Carbon Dioxide 36 H Anion Gap 11 L BUN 21 H POC Glucose Random Glucose Calcium 8.2 L Phosphorus Magnesium Troponin I High Sens B-Natriuretic Peptide Total Protein Albumin Urine Protein Urine Blood Urine Nitrite Ur Leukocyte Esterase Urine RBC Urine WBC 04/13/22 04/14/22 04/15/22 05:46 10:02 05:55 WBC RBC Hgb Hct MCV MCHC Plt Count MPV Immature Gran % (Auto) Neut % (Auto) Lymph % (Auto) Kerr % (Auto) Lymph # (Auto) Abs Immat Gran (auto) PT 29.3 H 35.3 H 25.1 H INR 2.5 H 2.9 H 2.1 H ABG pH at Pt Temp ABG pCO2 at Pt Temp ABG HCO3 VBG pH VBG HCO3 Sodium Potassium Chloride Carbon Dioxide Anion Gap BUN POC Glucose Random Glucose Calcium Phosphorus Magnesium Troponin I High Sens B-Natriuretic Peptide Total Protein Albumin Urine Protein Urine Blood Urine Nitrite Ur Leukocyte Esterase Urine RBC Urine WBC 04/16/22 04/17/22 04/17/22 06:11 05:13 05:13 WBC 4.5 L RBC 3.03 L Hgb 9.3 L Hct 29.3 L MCV MCHC Plt Count MPV 9.3 L Immature Gran % (Auto) Neut % (Auto) Lymph % (Auto) Kerr % (Auto) Lymph # (Auto) Abs Immat Gran (auto) PT 28.8 H INR 2.4 H ABG pH at Pt Temp ABG pCO2 at Pt Temp ABG HCO3 VBG pH VBG HCO3 Sodium Potassium 3.0 L Chloride Carbon Dioxide 37 H Anion Gap 9 L BUN 21 H POC Glucose Random Glucose Calcium 7.8 L Phosphorus Magnesium Troponin I High Sens B-Natriuretic Peptide Total Protein Albumin Urine Protein Urine Blood Urine Nitrite Ur Leukocyte Esterase Urine RBC Urine WBC 04/17/22 04/18/22 04/19/22 05:13 05:48 05:43 WBC RBC Hgb Hct MCV MCHC Plt Count MPV Immature Gran % (Auto) Neut % (Auto) Lymph % (Auto) Kerr % (Auto) Lymph # (Auto) Abs Immat Gran (auto) PT 32.7 H 28.6 H 26.4 H INR 2.7 H 2.4 H 2.2 H ABG pH at Pt Temp ABG pCO2 at Pt Temp ABG HCO3 VBG pH VBG HCO3 Sodium Potassium Chloride Carbon Dioxide Anion Gap BUN POC Glucose Random Glucose Calcium Phosphorus Magnesium Troponin I High Sens B-Natriuretic Peptide Total Protein Albumin Urine Protein Urine Blood Urine Nitrite Ur Leukocyte Esterase Urine RBC Urine WBC 04/20/22 04/21/22 04/22/22 06:05 05:19 05:20 WBC RBC Hgb Hct MCV MCHC Plt Count MPV Immature Gran % (Auto) Neut % (Auto) Lymph % (Auto) Kerr % (Auto) Lymph # (Auto) Abs Immat Gran (auto) PT 25.5 H 32.8 H 40.7 H INR 2.2 H 2.7 H 3.4 H ABG pH at Pt Temp ABG pCO2 at Pt Temp ABG HCO3 VBG pH VBG HCO3 Sodium Potassium Chloride Carbon Dioxide Anion Gap BUN POC Glucose Random Glucose Calcium Phosphorus Magnesium Troponin I High Sens B-Natriuretic Peptide Total Protein Albumin Urine Protein Urine Blood Urine Nitrite Ur Leukocyte Esterase Urine RBC Urine WBC 04/23/22 04/24/22 04/25/22 05:49 05:29 05:26 WBC RBC Hgb Hct MCV MCHC Plt Count MPV Immature Gran % (Auto) Neut % (Auto) Lymph % (Auto) Kerr % (Auto) Lymph # (Auto) Abs Immat Gran (auto) PT 36.5 H 24.6 H 20.0 H INR 3.0 H 2.1 H 1.7 H ABG pH at Pt Temp ABG pCO2 at Pt Temp ABG HCO3 VBG pH VBG HCO3 Sodium Potassium Chloride Carbon Dioxide Anion Gap BUN POC Glucose Random Glucose Calcium Phosphorus Magnesium Troponin I High Sens B-Natriuretic Peptide Total Protein Albumin Urine Protein Urine Blood Urine Nitrite Ur Leukocyte Esterase Urine RBC Urine WBC 04/26/22 04/27/22 04/28/22 13:12 05:50 05:18 WBC RBC Hgb Hct MCV MCHC Plt Count MPV Immature Gran % (Auto) Neut % (Auto) Lymph % (Auto) Kerr % (Auto) Lymph # (Auto) Abs Immat Gran (auto) PT 19.7 H 21.9 H 25.8 H INR 1.7 H 1.9 H 2.2 H ABG pH at Pt Temp ABG pCO2 at Pt Temp ABG HCO3 VBG pH VBG HCO3 Sodium Potassium Chloride Carbon Dioxide Anion Gap BUN POC Glucose Random Glucose Calcium Phosphorus Magnesium Troponin I High Sens B-Natriuretic Peptide Total Protein Albumin Urine Protein Urine Blood Urine Nitrite Ur Leukocyte Esterase Urine RBC Urine WBC 04/29/22 04/30/22 04/30/22 05:14 05:02 05:02 WBC 3.8 L RBC 3.04 L Hgb 9.2 L Hct 29.5 L MCV MCHC Plt Count 155 L MPV 9.3 L Immature Gran % (Auto) Neut % (Auto) Lymph % (Auto) Kerr % (Auto) Lymph # (Auto) Abs Immat Gran (auto) PT 28.1 H INR 2.4 H ABG pH at Pt Temp ABG pCO2 at Pt Temp ABG HCO3 VBG pH VBG HCO3 Sodium Potassium Chloride 95 L Carbon Dioxide 41 H* Anion Gap 9 L BUN 19 H POC Glucose Random Glucose Calcium 7.9 L Phosphorus Magnesium Troponin I High Sens B-Natriuretic Peptide Total Protein Albumin Urine Protein Urine Blood Urine Nitrite Ur Leukocyte Esterase Urine RBC Urine WBC 04/30/22 05/01/22 05/02/22 05:02 05:43 05:13 WBC RBC Hgb Hct MCV MCHC Plt Count MPV Immature Gran % (Auto) Neut % (Auto) Lymph % (Auto) Kerr % (Auto) Lymph # (Auto) Abs Immat Gran (auto) PT 30.5 H 28.5 H 24.9 H INR 2.6 H 2.4 H 2.1 H ABG pH at Pt Temp ABG pCO2 at Pt Temp ABG HCO3 VBG pH VBG HCO3 Sodium Potassium Chloride Carbon Dioxide Anion Gap BUN POC Glucose Random Glucose Calcium Phosphorus Magnesium Troponin I High Sens B-Natriuretic Peptide Total Protein Albumin Urine Protein Urine Blood Urine Nitrite Ur Leukocyte Esterase Urine RBC Urine WBC 05/03/22 05/04/22 05/05/22 05:48 05:51 05:12 WBC RBC Hgb Hct MCV MCHC Plt Count MPV Immature Gran % (Auto) Neut % (Auto) Lymph % (Auto) Kerr % (Auto) Lymph # (Auto) Abs Immat Gran (auto) PT 24.3 H 24.7 H 26.6 H INR 2.1 H 2.1 H 2.2 H ABG pH at Pt Temp ABG pCO2 at Pt Temp ABG HCO3 VBG pH VBG HCO3 Sodium Potassium Chloride Carbon Dioxide Anion Gap BUN POC Glucose Random Glucose Calcium Phosphorus Magnesium Troponin I High Sens B-Natriuretic Peptide Total Protein Albumin Urine Protein Urine Blood Urine Nitrite Ur Leukocyte Esterase Urine RBC Urine WBC 05/06/22 05/07/22 05/08/22 05:11 08:09 08:55 WBC RBC Hgb Hct MCV MCHC Plt Count MPV Immature Gran % (Auto) Neut % (Auto) Lymph % (Auto) Kerr % (Auto) Lymph # (Auto) Abs Immat Gran (auto) PT 28.7 H 33.0 H 41.1 H INR 2.4 H 2.8 H 3.4 H ABG pH at Pt Temp ABG pCO2 at Pt Temp ABG HCO3 VBG pH VBG HCO3 Sodium Potassium Chloride Carbon Dioxide Anion Gap BUN POC Glucose Random Glucose Calcium Phosphorus Magnesium Troponin I High Sens B-Natriuretic Peptide Total Protein Albumin Urine Protein Urine Blood Urine Nitrite Ur Leukocyte Esterase Urine RBC Urine WBC 05/09/22 05/10/22 05/10/22 05:52 05:05 05:05 WBC RBC Hgb Hct MCV MCHC Plt Count MPV Immature Gran % (Auto) Neut % (Auto) Lymph % (Auto) Kerr % (Auto) Lymph # (Auto) Abs Immat Gran (auto) PT 43.0 H 38.2 H INR 3.6 H 3.2 H ABG pH at Pt Temp ABG pCO2 at Pt Temp ABG HCO3 VBG pH VBG HCO3 Sodium 146 H Potassium Chloride Carbon Dioxide 41 H* Anion Gap BUN 21 H POC Glucose Random Glucose Calcium Phosphorus Magnesium Troponin I High Sens B-Natriuretic Peptide Total Protein Albumin Urine Protein Urine Blood Urine Nitrite Ur Leukocyte Esterase Urine RBC Urine WBC 05/11/22 05/11/22 05/11/22 05:06 15:42 15:46 WBC RBC Hgb Hct MCV MCHC Plt Count MPV Immature Gran % (Auto) Neut % (Auto) Lymph % (Auto) Kerr % (Auto) Lymph # (Auto) Abs Immat Gran (auto) PT 36.7 H INR 3.1 H ABG pH at Pt Temp 7.14 L* ABG pCO2 at Pt Temp 172 H* ABG HCO3 60 H VBG pH VBG HCO3 Sodium Potassium Chloride Carbon Dioxide Anion Gap BUN POC Glucose 137 H Random Glucose Calcium Phosphorus Magnesium Troponin I High Sens B-Natriuretic Peptide Total Protein Albumin Urine Protein Urine Blood Urine Nitrite Ur Leukocyte Esterase Urine RBC Urine WBC 05/11/22 05/11/22 05/11/22 17:35 17:35 17:36 WBC RBC 3.66 L D Hgb 10.7 L Hct MCV 103.0 H MCHC 28.4 L Plt Count MPV Immature Gran % (Auto) 0.7 H Neut % (Auto) 87.2 H Lymph % (Auto) 6.1 L Kerr % (Auto) Lymph # (Auto) 0.5 L Abs Immat Gran (auto) 0.05 H PT INR ABG pH at Pt Temp ABG pCO2 at Pt Temp ABG HCO3 VBG pH VBG HCO3 54 H Sodium 146 H Potassium Chloride Carbon Dioxide 39 H Anion Gap BUN 23 H POC Glucose Random Glucose 157 H Calcium Phosphorus Magnesium Troponin I High Sens B-Natriuretic Peptide Total Protein Albumin Urine Protein Urine Blood Urine Nitrite Ur Leukocyte Esterase Urine RBC Urine WBC 05/11/22 05/11/22 05/12/22 23:13 23:14 01:03 WBC RBC Hgb Hct MCV MCHC Plt Count MPV Immature Gran % (Auto) Neut % (Auto) Lymph % (Auto) Kerr % (Auto) Lymph # (Auto) Abs Immat Gran (auto) PT INR ABG pH at Pt Temp ABG pCO2 at Pt Temp ABG HCO3 VBG pH 7.56 H VBG HCO3 41 H Sodium Potassium 2.9 L D Chloride Carbon Dioxide 34 H Anion Gap BUN 25 H POC Glucose Random Glucose 218 H Calcium Phosphorus 1.7 L Magnesium Troponin I High Sens B-Natriuretic Peptide Total Protein 5.8 L Albumin 3.1 L Urine Protein 30 (1+) H Urine Blood Small (1+) H Urine Nitrite Ur Leukocyte Esterase Small (1+) H Urine RBC >20 H Urine WBC 21-50 H 05/12/22 05/12/22 05/12/22 05:25 05:25 05:25 WBC RBC 3.75 L Hgb 11.1 L Hct 36.3 L MCV MCHC 30.6 L Plt Count MPV Immature Gran % (Auto) 0.7 H Neut % (Auto) 94.6 H Lymph % (Auto) 2.9 L Kerr % (Auto) 1.8 L Lymph # (Auto) 0.2 L Abs Immat Gran (auto) 0.05 H PT 29.3 H INR 2.5 H ABG pH at Pt Temp ABG pCO2 at Pt Temp ABG HCO3 VBG pH VBG HCO3 Sodium Potassium 2.7 L Chloride 95 L Carbon Dioxide 33 H Anion Gap BUN 24 H POC Glucose Random Glucose 201 H Calcium Phosphorus 1.7 L Magnesium Troponin I High Sens B-Natriuretic Peptide Total Protein 5.8 L Albumin 3.2 L Urine Protein Urine Blood Urine Nitrite Ur Leukocyte Esterase Urine RBC Urine WBC 05/12/22 05:38 WBC RBC Hgb Hct MCV MCHC Plt Count MPV Immature Gran % (Auto) Neut % (Auto) Lymph % (Auto) Kerr % (Auto) Lymph # (Auto) Abs Immat Gran (auto) PT INR ABG pH at Pt Temp ABG pCO2 at Pt Temp ABG HCO3 VBG pH 7.56 H VBG HCO3 34 H Sodium Potassium Chloride Carbon Dioxide Anion Gap BUN POC Glucose Random Glucose Calcium Phosphorus Magnesium Troponin I High Sens B-Natriuretic Peptide Total Protein Albumin Urine Protein Urine Blood Urine Nitrite Ur Leukocyte Esterase Urine RBC Urine WBC Microbiology: Microbiology 05/12/22 12:03 Sputum - Suctioned Gram Stain - Final 02/21/22 12:42 Blood - Venous Blood Culture - Final No growth after 5 days. 02/21/22 12:36 Blood - Venous Blood Culture - Final No growth after 5 days. 02/20/22 05:43 Blood - Venous Blood Culture - Final Coag negative Staphylococcus 02/20/22 05:43 Blood - Venous Blood Culture - Final Coag negative Staphylococcus 02/19/22 18:54 Urine clean catch - Urine cardona top Urine Culture - Final Diagnostic Findings Chest x-ray: report reviewed and image reviewed Assessment and Plan (1) Hypercapnic respiratory failure: Status: Acute (2) Cor pulmonale, acute: Status: Acute (3) Chronic atrial fibrillation: Status: Acute (4) Chronic heart failure: Status: Acute (5) Acute respiratory distress syndrome (ARDS): Status: Acute Plan This patient developed acute ventilatory failure with severe hypercapnia, and hypoxemia. Hypercapnia may have been aggravated by severe Alkalosis . Hypercapnia is resolved with the ventilatory support, she still remains alkalotic, this the needs to be corrected. Radiologic picture, is suggestive of congestive heart failure, or may be ARDS due to bacteremia/septicemia. I do not think she has any endobronchial obstruction at this time, so there will be no need to do bronchoscopy and bronchial toilet. She should be treated with gentle diuresis. Again recheck her chest x-ray tomorrow. Dr. Jose Henderson say is also reviewing the x-rays, if there is any worsening tomorrow he might do a bronchoscopy could examination. Procedures Date of Service Date of Service: 05/12/22
[2022-05-12] MEDS: Potassium Chloride/H20 40 MEQ/100 ML PIGGYBACK 50 MEQ IV (19:59)
[2022-05-12 20:03] LABS: Lactic Acid 0.8 mmol/L (0.5-2.0)
[2022-05-12 20:56] LABS: B Type Natriuretic Peptide 392 pg/mL (<100); Troponin-I High Sensitivity 69.2 ng/L (<3.5-17.0)
[2022-05-12] MEDS: Potassium Phosphate/NS 15 MMOL/250 ML PLAST..BAG 62.5 MMOL IV (21:00)
[2022-05-12] MEDS: iohexoL 350 MG/ML 100 ML INFUS..BTL IV (22:00)
[2022-05-13] VITALS (35 sets, daily range): BP systolic 83–132; BP diastolic 47–87; PULSE 75–136; RESP 10–21; TEMP 34.3–37.7; O2SAT 91–99; BMI 37.3
[2022-05-13] MEDS: Metoprolol Tartrate 25 MG TABLET PO ×2 (00:15→07:20)
[2022-05-13] MEDS: dilTIAZem HCL 30 MG TABLET G-TUBE ×3 (00:15→11:53)
[2022-05-13] MEDS: Potassium Phosphate/NS 15 MMOL/250 ML PLAST..BAG 62.5 MMOL IV (00:57)
[2022-05-13] MEDS: propofoL 1,000 MG/100 ML VIAL 19.51 MG IVCONT ×4 (02:20→10:02)
[2022-05-13] MEDS: acetaZOLAMIDE sodium 500 MG VIAL IVPUSH ×3 (02:20→18:10)
[2022-05-13] MEDS: methylPREDNISolone Sod Succ 40 MG/ML VIAL IVPUSH ×3 (02:22→18:10)
[2022-05-13] MEDS: Pantoprazole Sodium 40 MG/10 ML VIAL IVPUSH (05:28)
[2022-05-13 05:33] LABS: VBG Base Excess 7.5 mmol/L; VBG HCO3 30 mmol/L (22-26); VBG pCO2 37 mmHg; VBG pH 7.51 (7.32-7.43); VBG pO2 56 mmHg
[2022-05-13 05:36] LABS: Venous Blood Gas Refer to POC result
[2022-05-13 06:18] LABS: INTERNATIONAL NORM RATIO 1.4 (0.9-1.1); Prothrombin Time 15.9 SEC (10.0-13.1)
[2022-05-13 06:20] LABS: Basophils Percent Auto 0.1 % (0-2); Hematocrit 32.9 % (37.0-47.0); Hemoglobin 10.4 g/dl (12.0-16.0); Imm Gran Abs Auto 0.05 X10*3/uL (0.00-0.03); Imm Gran Pct Auto 0.6 % (0.0-0.4); Lymphocytes Absolute Auto 0.3 X10*3/uL (1.2-4.9); Lymphocytes Percent Auto 3.2 % (20-40); MANUAL DIFF FLAG SCAN; Mean Corpuscular HGB Conc 31.6 g/dl (31.0-35.0); Mean Corpuscular Hemoglobin 29.5 pg (27.0-33.0); Mean Corpuscular Volume 93.5 fL (80.0-98.0); Mean Platelet Volume 9.4 fL (9.4-12.3); Monocytes Absolute Auto 0.3 X10*3/uL (0.1-1.2); Monocytes Percent Auto 3.6 % (2-11); Neutrophils Absolute Auto 8.2 x10*3/uL (2.0-8.3); Neutrophils Percent Auto 92.5 % (45-73); Platelet Count 235 X10*3/uL (160-400); Red Blood Count 3.52 X10*6/uL (4.20-5.50); Red Cell Distribution Width 14.7 % (11.0-16.0); SCAN SMEAR FLAG 1; White Blood Count 8.8 X10*3/uL (4.8-10.8)
[2022-05-13 06:32] LABS: Anion Gap 17 (12-20); Blood Urea Nitrogen 25 mg/dL (9-16); Calcium 8.3 mg/dL (8.4-10.2); Carbon Dioxide 29 mmol/L (22-29); Chloride 97 mmol/L (96-108); Creatinine Clr Calc Pharmacy 70.6; Estimated Glomerular Filt Rate > 60; Glucose Random 197 mg/dL (60-115); Phosphorus 4.3 mg/dL (2.7-4.5); Potassium 2.7 mmol/L (3.3-5.1); Sodium 140 mmol/L (135-145)
--- NOTE | 2022-05-13 06:39 | PC.NURSE ---
ASSUMED CARE OF PT AT 1900. PT ON AC VENT SETTINGS OVERNIGHT WITHOUT COMPLICATION. O2 SATS MID 90'S ON FIO2 OF 30%. BP STABLE ON LEVOPHED. CURRENTLY BEING WEANED. CT SCAN ANGIO OF CHEST DONE WITH COMPLICATION. PROVIDER FLACO AWARE OF RESULTS. MONITOR SHOWS AFIB WITH RATE 110'S-130'S. SPOKE TO SHEILA SAM ABOUT RAPID RATE AND MEDS ADJUSTED. AFEBRILE. U/O GOOD. BLEEDING NOTED FOR TLC INSERTION SITE. DSG CHANGED AND SURGICELL APPLIED. SOME BLEEDING NOTED THROUGH SURGICELL BUT CONTAINED.
[2022-05-13 06:53] LABS: SLIDE REVIEW VERIFIED
[2022-05-13] MEDS: Chlorhexidine Gluc Oral Rinse 15 ML MOUTHWASH BUCCAL ×3 (07:20→20:51)
[2022-05-13] MEDS: Potassium Chloride Packet 20 MEQ PACKET 40 MEQ PO (07:20)
[2022-05-13] MEDS: Nystatin Powder 15 GM BOTTLE 1 APPL TOPICAL ×3 (07:21→20:52)
[2022-05-13] MEDS: Albuterol/Iprat 2.5/0.5MG 3 ML AMPUL.NEB INHALE ×4 (07:59→19:52)
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
[2022-05-13] MEDS: Metoprolol Tartrate 25 MG TABLET G-TUBE (09:03)
[2022-05-13] MEDS: dilTIAZem HCL 60 MG TABLET G-TUBE (09:03)
[2022-05-13] MEDS: Potassium Chloride Packet 20 MEQ PACKET 40 MEQ G-TUBE ×2 (09:03→20:51)
[2022-05-13] MEDS: Famotidine 20 MG TABLET G-TUBE (09:03)
--- NOTE | 2022-05-13 10:17 | MHC.CLN ---
F/U PT REMAINS INTUBATED AND SEDATED DISCUSSED AT ROUNDS TF RUNNING PROMOTE AT 40ML/HR CURRENTLY NSG NOTED BM X4 TODAY-REQUESTED BOWEL MEDS D/C AT THIS TIME RECOMMEND TF PROMOTE AT MAX GOAL RATE 55ML/HR WITH 120ML FREE WATER FLUSHES Q 8 HRS TO PROVIDE 1320KCALS (1835KCALS WITH SEDATION; 31KCALS/KG), 82G PROTEIN (1.4G/KG), 1467ML TOTAL FREE WATER FROM FORMULA AND FLUSHES (25ML/KG) MONITOR TOLERANCE RESIDUALS AND LYTES
--- NOTE | 2022-05-13 11:56 | P.BOP_ITS ---
Brief Operative Note Date of Service: 05/13/22 Pre-op diagnosis: LLL collapse Post-op diagnosis: other (LLL collapse, bronchomalecia, LLL endobronchial polypoid lesion) Procedure: bronchosocpy with washings Implants: Surgeon: Jose Henderson MD Anesthesia: other (sedated and intubated in the ICU) Was an Route Vending Machine Servicer used for this Procedure?: No Estimated blood loss (mL): 0 Pathology: other Condition: stable Disposition: ICU
--- NOTE | 2022-05-13 11:59 | MHC.SHP ---
Pre-Procedural Eval Section A Date of Service: 05/13/22 The patient is an INPATIENT: Yes Section B Chief Complaint: Afib Allergies: Allergies Allergy/AdvReac Type Severity Reaction Status Date / Time No Known Allergies Allergy Unverified 03/22/20 19:41 [No Known Allergies*] Plan I have reviewed the history and physical and performed a pertinent physical examination on my patient. No changes have occurred unless specified.
--- NOTE | 2022-05-13 13:09 | CA_ITS ---
Transthoracic Echocardiogram Patient (Last, First, Middle): Tobias Anguiano, Gender: Female Date of : 1940 Age: 81 Procedure Date: 05/14/2022 Procedure Type: Transthoracic Echocardiogram Location: ICU Height: 167.64 cm Weight: 104.78 kg BSA: 2.13 m2 Heart Rate: 90 bpm BP: 93 / 58 mmHg Trains Service Conductor: Referring MD: Dante Varma MD Symptoms: r/o right heart failuure Study Quality: Technically Difficult ECG Rhythm: Atrial Fibrillation Conclusions: - Limited study. - Limited valvular assessment. - Normal biventricular function. - There is a moderate pleural effusion. - There is severely increased left ventricular wall thickness. Findings Left Ventricle Normal left ventricular size and systolic function. There is severely increased left ventricular wall thickness. The visually estimated ejection fraction is between 60-65%. There is no evidence of regional wall motion abnormalities. Diastolic function is indeterminate on the basis of available data. Right Ventricle Normal right ventricular cavity size and systolic function. Tricuspid Valve Likely normal tricuspid valve structure and function. There is trace tricuspid valve regurgitation. Tricuspid regurgitation envelope is inadequate for calculation of right ventricular systolic pressure. Venous The inferior vena cava is dilated and does not collapse with inspiration. Patient is intubated and cannot assess RA pressure. Pericardium/Pleural There is no evidence of pericardial effusion. There is a moderate pleural effusion. Measurements 2D Linear Measurements IVSd: 1.55 0.6-0.9/0.6-1.0 cm LVIDd: 4.30 3.9-5.3/4.2-5.9 cm LVIDd Index: 2.02 2.4-3.2/2.2-3.1 cm/m2 LVIDs: 2.81 2.0-3.6 cm LVPWd: 1.54 0.7-1.1 cm LV Mass: 337.04 67-162/88-224 g LV Mass Index: 158.23 43-95/49-115 g/m2 2D Systolic Function EF 4C: 50.10 >55% EF 2C: 57.20 >55% EF BiP: 52.90 >55% Right Ventricle TAPSE (mm): 19.10 TVS' Kota: 9.68 Updated in Other Vendor System with Status of Final Dougie Mckeon MD electronically signed on 05/13/2022 3:31:30 PM with status of Final
[2022-05-13] MEDS: propofoL 1,000 MG/100 ML VIAL 14.63 MG IVCONT (14:15)
[2022-05-13 15:29] LABS: Amphetamine Screen Urine Not Detected (Not Detect); Barbiturates, Urine Not Detected (Not Detect); Benzodiazepines Screen Urine Not Detected (Not Detect); Cannabinoid Screen Urine Not Detected (Not Detect); Cocaine Screen Urine Not Detected (Not Detect); Fentanyl, urine Not Detected (Not Detect); Opiate Screen Urine Not Detected (Not Detect); Phencyclidine Screen Urine Not Detected (Not Detect)
[2022-05-13] MEDS: Metoprolol Tartrate 50 MG TABLET PO ×2 (15:56→20:51)
[2022-05-13] MEDS: Warfarin Sodium 5 MG TABLET G-TUBE (18:10)
[2022-05-13] MEDS: propofoL 1,000 MG/100 ML VIAL 9.76 MG IVCONT (18:24)
[2022-05-14] VITALS (33 sets, daily range): BP systolic 90–146; BP diastolic 44–77; PULSE 73–138; RESP 12–20; TEMP 35–37.6; O2SAT 90–99; BMI 38.0
[2022-05-14] MEDS: dilTIAZem HCL 30 MG TABLET G-TUBE ×3 (00:47→12:09)
--- NOTE | 2022-05-14 01:23 | OP_ITS ---
SURGEON: Jose Henderson MD PREOPERATIVE DIAGNOSIS: POSTOPERATIVE DIAGNOSIS: PROCEDURE PERFORMED: Bronchoscopy with washings. ESTIMATED BLOOD LOSS: COMPLICATIONS: No complications. ANESTHESIA: The patient is already sedated in the ICU and also intubated with a 6.[address] ASSISTANTS: None. SPECIMENS: Bilateral lung washings for both cytology and Gram stain and culture. ASA CLASSIFICATION: 4. PREOPERATIVE DIAGNOSES: Left lower lobe collapse and pneumonia. POSTOPERATIVE DIAGNOSES: Left lower lobe collapse, bronchomalacia, left lower lobe endobronchial polypoid lesion. DESCRIPTION OF PROCEDURE: After the patient was adequately sedated, the flexible digital bronchoscope was inserted with a 6.5 ET tube to the level of the main ryan. It was a tight fit, but it was able to move freely get into the airways. Her alarms were going off due to the limited airflow movement around the bronchoscopy. The main ryan appeared to be normal without any significant splaying. The bronchoscope was navigated into the entire tracheobronchial tree. The right-sided airways appeared to be normal, patent, without any foreign bodies. No significant secretions noted. No endobronchial lesions. We navigated down the left mainstem bronchus and also appeared to be normal. Did have some mucoid secretions. The left upper lobe airways were also patent. The left lower lobe airways appeared to have small bronchomalacia with some significant dynamic collapse with the respiratory effort. The patient did have a polypoid lesion in the left lower lobe area. Some more tenacious mucus in the left lower lobe. Therefore, washings with normal saline were introduced into the left lower lobe and the area was clear from the debris and secretions. No foreign bodies appreciated. The bronchoscope was then removed. The total endoscopic time approximately 7 minutes. Patient tolerated the procedure relatively well, though was having hard time due to the lack of ventilation during the procedure. Her vital signs were stable, however. MD JASON Mcnair/DAVID / [id number]
[2022-05-14] MEDS: acetaZOLAMIDE sodium 500 MG VIAL IVPUSH ×2 (01:50→10:44)
[2022-05-14] MEDS: propofoL 1,000 MG/100 ML VIAL 9.76 MG IVCONT ×2 (01:50→13:13)
[2022-05-14] MEDS: methylPREDNISolone Sod Succ 40 MG/ML VIAL IVPUSH ×3 (01:50→18:21)
[2022-05-14] MEDS: Furosemide 40 MG/4 ML VIAL IVPUSH (02:05)
[2022-05-14] MEDS: Furosemide 200 MG in 0.9 % Sodium Chloride 80 ML IVCONT (02:14)
[2022-05-14 05:19] LABS: VBG Base Excess 3.6 mmol/L; VBG HCO3 28 mmol/L (22-26); VBG pCO2 43 mmHg; VBG pH 7.42 (7.32-7.43); VBG pO2 55 mmHg
[2022-05-14 05:32] LABS: INTERNATIONAL NORM RATIO 1.6 (0.9-1.1); Prothrombin Time 18.5 SEC (10.0-13.1)
[2022-05-14 05:44] LABS: Venous Blood Gas Refer to POC result
[2022-05-14 05:54] LABS: Albumin Level 3.3 g/dL (3.5-5.0); Anion Gap 13 (12-20); Blood Urea Nitrogen 32 mg/dL (9-16); Calcium 8.2 mg/dL (8.4-10.2); Carbon Dioxide 30 mmol/L (22-29); Chloride 100 mmol/L (96-108); Creatinine Clr Calc Pharmacy 67.9; Estimated Glomerular Filt Rate > 60; Glucose Random 237 mg/dL (60-115); Potassium 3.4 mmol/L (3.3-5.1); Sodium 140 mmol/L (135-145)
[2022-05-14] MEDS: propofoL 1,000 MG/100 ML VIAL 14.63 MG IVCONT ×2 (07:30→18:20)
[2022-05-14] MEDS: Nystatin Powder 15 GM BOTTLE 1 APPL TOPICAL ×3 (07:50→21:48)
[2022-05-14] MEDS: Chlorhexidine Gluc Oral Rinse 15 ML MOUTHWASH BUCCAL ×3 (07:50→21:47)
[2022-05-14] MEDS: Metoprolol Tartrate 50 MG TABLET PO ×3 (07:50→21:47)
[2022-05-14] MEDS: Famotidine 20 MG TABLET G-TUBE (07:50)
[2022-05-14] MEDS: Albumin Human 25 % 100 ML IV ×2 (07:50→08:40)
[2022-05-14] MEDS: Albuterol/Iprat 2.5/0.5MG 3 ML AMPUL.NEB INHALE ×4 (08:21→19:32)
--- NOTE | 2022-05-14 10:37 | MHC.CLN ---
F/U PT REMAINS INTUBATED AND SEDATED DISCUSSED AT ROUNDS PT RECEIVING TF PROMOTE AT MAX GOAL RATE 55ML/HR WITH 120ML FREE WATER FLUSHES Q 8 HRS PROVIDES 1320KCALS (1706KCALS WITH SEDATION; 29KCALS/KG BASED ON IBW), 82G PROTEIN (1.4G/KG BASED ON IBW), 1467ML TOTAL FREE WATER FROM FORMULA AND FLUSHES (25ML/KG) TF WILL PROMOTE SLOW WOUND HEALING MONITOR TOLERANCE RESIDUALS AND LYTES
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
[2022-05-14] MEDS: Potassium Chloride Packet 20 MEQ PACKET 40 MEQ G-TUBE ×2 (14:31→18:21)
--- NOTE | 2022-05-14 14:32 | MHC.CM.PN ---
This bid writer spoke w/ Dr. Varma regarding daughter's wishes for next steps of care for patient. There are concerns regarding next steps requested from daughter. This bid writer spoke with hospital [employer] Forming Machine Tender- recommendation for family meeting with primary and alternate HCP, for
[2022-05-14] MEDS: Morphine Sulfate 2 MG/ML CARTRIDGE IVPUSH (21:48)
[2022-05-15] VITALS (33 sets, daily range): BP systolic 110–142; BP diastolic 52–83; PULSE 76–112; RESP 10–18; TEMP 36.5–37.4; O2SAT 91–99; BMI 37.5
[2022-05-15] MEDS: propofoL 1,000 MG/100 ML VIAL 12.2 MG IVCONT ×2 (00:35→05:14)
[2022-05-15] MEDS: Furosemide 200 MG in 0.9 % Sodium Chloride 80 ML IVCONT (00:44)
[2022-05-15] MEDS: dilTIAZem HCL 30 MG TABLET G-TUBE ×5 (00:46→23:25)
[2022-05-15] MEDS: Potassium Chloride Packet 20 MEQ PACKET 40 MEQ G-TUBE ×2 (00:46→02:22)
[2022-05-15] MEDS: methylPREDNISolone Sod Succ 40 MG/ML VIAL IVPUSH ×2 (02:21→12:38)
[2022-05-15 05:08] LABS: VBG Base Excess 5.4 mmol/L; VBG HCO3 31 mmol/L (22-26); VBG pCO2 49 mmHg; VBG pO2 57 mmHg
[2022-05-15 05:25] LABS: Hematocrit 32.6 % (37.0-47.0); Hemoglobin 10.3 g/dl (12.0-16.0); Mean Corpuscular HGB Conc 31.6 g/dl (31.0-35.0); Mean Corpuscular Hemoglobin 29.9 pg (27.0-33.0); Mean Corpuscular Volume 94.5 fL (80.0-98.0); Mean Platelet Volume 9.8 fL (9.4-12.3); Platelet Count 186 X10*3/uL (160-400); Red Blood Count 3.45 X10*6/uL (4.20-5.50); Red Cell Distribution Width 14.7 % (11.0-16.0)
[2022-05-15 05:31] LABS: INTERNATIONAL NORM RATIO 1.8 (0.9-1.1); Prothrombin Time 20.9 SEC (10.0-13.1)
[2022-05-15 05:46] LABS: Anion Gap 16 (12-20); B Type Natriuretic Peptide 244 pg/mL (<100); Blood Urea Nitrogen 40 mg/dL (9-16); Calcium 7.8 mg/dL (8.4-10.2); Carbon Dioxide 28 mmol/L (22-29); Chloride 100 mmol/L (96-108); Creatinine Clr Calc Pharmacy 68.3; Estimated Glomerular Filt Rate > 60; Glucose Random 207 mg/dL (60-115); Phosphorus 3.5 mg/dL (2.7-4.5); Potassium 4.2 mmol/L (3.3-5.1); Sodium 140 mmol/L (135-145)
[2022-05-15 05:47] LABS: Venous Blood Gas Refer to POC result
[2022-05-15] MEDS: Albuterol/Iprat 2.5/0.5MG 3 ML AMPUL.NEB INHALE ×4 (07:53→19:08)
[2022-05-15] MEDS: Chlorhexidine Gluc Oral Rinse 15 ML MOUTHWASH BUCCAL ×3 (08:16→19:53)
[2022-05-15] MEDS: Calcium Gluconate/NaCl,Iso-Osm 1 GM/50 ML PLAST..BAG IV (08:16)
[2022-05-15] MEDS: Metoprolol Tartrate 50 MG TABLET PO ×3 (08:16→19:53)
[2022-05-15] MEDS: Famotidine 20 MG TABLET G-TUBE (08:16)
[2022-05-15] MEDS: polyethylene glycoL 3350 17 GM POWD.PACK PO (08:16)
[2022-05-15] MEDS: Nystatin Powder 15 GM BOTTLE 1 APPL TOPICAL ×3 (08:17→19:55)
[2022-05-15] MEDS: acetaZOLAMIDE sodium 500 MG VIAL IVPUSH (08:17)
--- NOTE | 2022-05-15 11:27 | MHC.CM.PN ---
Addendum entered by Ermelinda Leonard 05/15/22 11:41: If pt's dtr Haley calls requesting to have her HCP status reinstated, she should be directed to [facility] risk and legal. If she would like updates, she should be directed to her brother, Rashaad, pt's primary HCP. Original Note: Per conversation with MD at rounds, pt's dtr Haley has relinquished her position of primary health care proxy. Pt has a valid HCP on file listing her son, Rashaad as the alternate. Call placed to Rashaad who is willing to serve as pt's primary (and only) HCP. Rashaad can be reached 26/01 at [phone]. Pt is presently intubated and unable to make wants/needs known. Goals of care today are to try and vent wean. Pt will need LTC placement - payor source in process of being obtained. CM to follow.
--- NOTE | 2022-05-15 12:23 | W.MHC.ACPN ---
Advanced Care Planning Note Problems Discussed (1) Hypercapnic respiratory failure: (2) Cor pulmonale, acute: (3) Chronic atrial fibrillation: (4) Chronic heart failure: (5) Acute respiratory distress syndrome (ARDS):
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
--- NOTE | 2022-05-15 19:03 | PC.NURSE ---
Report given from prior RN. patient assessed noting no waking or sustained consciousness from being on sedation vacation. [employer] foam dressings to back are CDI. At end of shift patient noted to have slight tracking ability with eyes, unable to follow commands at this moment. Patient repositioned Q2hr, routine oral care provided, updated on health status.
[2022-05-15] MEDS: methylPREDNISolone Sod Succ 40 MG/ML VIAL 30 MG IVPUSH (19:54)
[2022-05-15] MEDS: fentaNYL citrate/PF 100 MCG/2 ML VIAL 25 MCG IVPUSH ×2 (20:00→22:08)
[2022-05-15 23:21] LABS: VBG Base Excess 6.8 mmol/L; VBG HCO3 32 mmol/L (22-26); VBG pCO2 49 mmHg; VBG pH 7.42 (7.32-7.43); VBG pO2 50 mmHg
[2022-05-16] VITALS (33 sets, daily range): BP systolic 112–152; BP diastolic 62–90; PULSE 76–116; RESP 14–23; TEMP 34.6–37.4; O2SAT 92–97
[2022-05-16 00:24] LABS: Venous Blood Gas Refer to POC result
[2022-05-16] MEDS: fentaNYL citrate/PF 100 MCG/2 ML VIAL 25 MCG IVPUSH ×2 (01:46→07:12)
[2022-05-16] MEDS: dilTIAZem HCL 30 MG TABLET G-TUBE (05:18)
[2022-05-16 05:23] LABS: VBG Base Excess 5.9 mmol/L; VBG HCO3 30 mmol/L (22-26); VBG pCO2 45 mmHg; VBG pH 7.43 (7.32-7.43); VBG pO2 43 mmHg
[2022-05-16 05:39] LABS: Albumin Level 3.5 g/dL (3.5-5.0); Anion Gap 15 (12-20); Blood Urea Nitrogen 46 mg/dL (9-16); Calcium 8.1 mg/dL (8.4-10.2); Carbon Dioxide 30 mmol/L (22-29); Chloride 100 mmol/L (96-108); Creatinine Clr Calc Pharmacy 68.9; Estimated Glomerular Filt Rate > 60; Glucose Random 204 mg/dL (60-115); Phosphorus 3.2 mg/dL (2.7-4.5); Potassium 3.4 mmol/L (3.3-5.1); Sodium 142 mmol/L (135-145)
[2022-05-16] MEDS: Albuterol/Iprat 2.5/0.5MG 3 ML AMPUL.NEB INHALE ×4 (07:31→19:07)
[2022-05-16] MEDS: Chlorhexidine Gluc Oral Rinse 15 ML MOUTHWASH BUCCAL ×2 (07:38→13:43)
[2022-05-16] MEDS: methylPREDNISolone Sod Succ 40 MG/ML VIAL 30 MG IVPUSH ×2 (07:38→20:05)
[2022-05-16] MEDS: polyethylene glycoL 3350 17 GM POWD.PACK PO (07:38)
[2022-05-16] MEDS: Nystatin Powder 15 GM BOTTLE 1 APPL TOPICAL ×3 (07:38→20:10)
[2022-05-16] MEDS: Metoprolol Tartrate 50 MG TABLET PO (07:39)
[2022-05-16 07:42] LABS: INTERNATIONAL NORM RATIO 1.3 (0.9-1.1); Prothrombin Time 15.1 SEC (10.0-13.1)
[2022-05-16 08:57] LABS: Venous Blood Gas Refer to POC result
--- NOTE | 2022-05-16 10:01 | MHC.CLN ---
F/U DISCUSSED AT MD ROUNDS. PATIENT EXTUBATED AND TUBE FEEDING DISCONTINUED TODAY. FOLLOW FOR DIET TOLERANCE/ADVANCEMENT.
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
[2022-05-16] MEDS: acetaZOLAMIDE sodium 500 MG VIAL IVPUSH (11:01)
[2022-05-16] MEDS: Potassium Chloride/H20 40 MEQ/100 ML PIGGYBACK 50 MEQ IV (11:04)
--- NOTE | 2022-05-16 12:58 | P.CDIC_ITS ---
CDI Concurrent Query Documentation Clarification: PHYSICIAN'S DOCUMENTATION REQUEST Date of Query: 05/16/22 1258 Patient Name: Tobias Anguiano Admit Date: 02/20/22 Dear Doctor, A review of the medical record indicates additional documentation may be needed. Please review below and update the documentation accordingly. Clinical Indicators: Respiratory failure was documented on 05/16/22. Risk Factors/Clinical Indicators/Treatments ?Hypoxemic respiratory failure Extubated without incident.? Doing OK on BiPAP so far. If possible, please further clarify the type and acuity of respiratory failure: Acuity: * Acute * Chronic * Acute on chronic * Unable to determine Use of terms such as suspected, likely, concern for, or probable (associated with a specific diagnosis that is being evaluated, monitored, or treated as if it exists) are acceptable and can be coded in the inpatient setting, when documented at the time of discharge. Thank you, Sania Dash RN Extension: [phone] Please use your independent medical judgment in providing your response. THIS QUERY IS PART OF THE PERMANENT MEDICAL RECORD Provider Response: Acute Respiratory Failure
[2022-05-16 13:06] LABS: VBG Base Excess 5.6 mmol/L; VBG HCO3 31 mmol/L (22-26); VBG pCO2 51 mmHg; VBG pH 7.39 (7.32-7.43); VBG pO2 47 mmHg
--- NOTE | 2022-05-16 13:10 | MHC.CM.PN ---
Pt extubated and doing well on NIPPV. Pt's son Rashaad made HCP after dtr Haley resigned on 05/15. [facility] financial updated to defer any document requests to Rashaad as Haley is no longer involved in pt's d/c planning. Pt will need LTC placement once [facility] has been obtained.
[2022-05-16] MEDS: Potassium Chloride/H20 20 MEQ/100 ML PIGGYBACK 50 MEQ IV ×2 (13:50→20:04)
[2022-05-16] MEDS: Lidocaine HCl 1 % MPF 5 ML VIAL 10 ML SUBCUT (15:26)
--- NOTE | 2022-05-16 16:07 | MHC.CLN ---
F/U CURRENTLY NPO. IF KAOFEED STARTS, RECOMMEND PROMOTE AT MAX GOAL RATE 60 ML PER HOUR. FREE WATER FLUSH 120 ML Q 8 HOURS. PROVIDES 1440 ML FORMULA, 1440 KCALS (24.4 KCALS/KG IBW); 90 G PROTEIN (1.53 G/KG IBW); 1568 ML TOTAL FREE WATER FROM FORMULA AND FLUSHES (26.6 ML/KG IBW) MONITOR TOLERANCE, RESIDUALS AND LYTES. FOLLOW FOR DIET ADVANCEMENT AND INTAKE.
[2022-05-16 16:50] LABS: Hematocrit 35.2 % (37.0-47.0); Mean Corpuscular HGB Conc 31.3 g/dl (31.0-35.0); Mean Corpuscular Hemoglobin 29.3 pg (27.0-33.0); Mean Corpuscular Volume 93.9 fL (80.0-98.0); Mean Platelet Volume 10.2 fL (9.4-12.3); Platelet Count 193 X10*3/uL (160-400); Red Blood Count 3.75 X10*6/uL (4.20-5.50); Red Cell Distribution Width 14.6 % (11.0-16.0); White Blood Count 7.4 X10*3/uL (4.8-10.8)
[2022-05-16 16:54] LABS: INTERNATIONAL NORM RATIO 1.1 (0.9-1.1); Prothrombin Time 13.2 SEC (10.0-13.1)
[2022-05-16 16:57] LABS: Partial Thromboplastin Time 24.7 SEC (26.0-36.4)
--- NOTE | 2022-05-16 18:39 | PC.NURSE ---
Patient switched from PS to AC setting at 0710 per PA order. Patient did not tolerate well and was in pain from vent setting. PRN fentanyl given for pain and vent synchrony at 0713. Per MD patient was switched over to PS setting on the vent, with pressure support eventually being lowered. Patient extubated at 0910 and placed on BIPAP. Restraints removed with extubation and application of BIPAP. Larson discontinued Per MD at 1015 and replaced with Purewick. Patient eventually switched from BIPAP to HighFlow at 1029 on 30L at 30% fiO2 where they remained for the remainder of the day. Thoracentesis at 1500, 500 mL of pleural fluid was removed. Patient bathed, updated on health status, repositioned Q2Hr, with Routine oral care provided.
[2022-05-16] MEDS: Enoxaparin Sodium 100 MG/ML SYRINGE 90 MG SUBCUT (20:04)
[2022-05-17] VITALS (27 sets, daily range): BP systolic 61–145; BP diastolic 33–85; PULSE 75–107; RESP 12–24; TEMP 36.1–36.9; O2SAT 86–97
[2022-05-17 05:17] LABS: Hematocrit 32.3 % (37.0-47.0); Hemoglobin 10.1 g/dl (12.0-16.0); Mean Corpuscular HGB Conc 31.3 g/dl (31.0-35.0); Mean Corpuscular Hemoglobin 29.6 pg (27.0-33.0); Mean Corpuscular Volume 94.7 fL (80.0-98.0); Mean Platelet Volume 9.9 fL (9.4-12.3); Platelet Count 193 X10*3/uL (160-400); Red Blood Count 3.41 X10*6/uL (4.20-5.50); Red Cell Distribution Width 14.3 % (11.0-16.0); White Blood Count 6.2 X10*3/uL (4.8-10.8)
[2022-05-17 05:23] LABS: INTERNATIONAL NORM RATIO 1.2 (0.9-1.1); Prothrombin Time 13.9 SEC (10.0-13.1)
[2022-05-17 05:26] LABS: VBG HCO3 31 mmol/L (22-26); VBG pCO2 54 mmHg; VBG pH 7.36 (7.32-7.43); VBG pO2 57 mmHg
[2022-05-17 05:27] LABS: Venous Blood Gas Refer to POC result
[2022-05-17 05:41] LABS: Anion Gap 12 (12-20); Blood Urea Nitrogen 39 mg/dL (9-16); Calcium 8.2 mg/dL (8.4-10.2); Carbon Dioxide 29 mmol/L (22-29); Chloride 107 mmol/L (96-108); Creatinine Clr Calc Pharmacy 82.2; Estimated Glomerular Filt Rate > 60; Glucose Random 129 mg/dL (60-115); Magnesium 2.1 mg/dL (1.6-2.6); Phosphorus 3.6 mg/dL (2.7-4.5); Potassium 3.6 mmol/L (3.3-5.1); Sodium 144 mmol/L (135-145)
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
[2022-05-17] MEDS: Albuterol/Iprat 2.5/0.5MG 3 ML AMPUL.NEB INHALE ×2 (07:44→12:05)
[2022-05-17] MEDS: Chlorhexidine Gluc Oral Rinse 15 ML MOUTHWASH BUCCAL (09:16)
[2022-05-17] MEDS: Enoxaparin Sodium 100 MG/ML SYRINGE 90 MG SUBCUT (09:16)
[2022-05-17] MEDS: Nystatin Powder 15 GM BOTTLE 1 APPL TOPICAL (09:17)
[2022-05-17] MEDS: fentaNYL citrate/PF 100 MCG/2 ML VIAL 25 MCG IVPUSH ×4 (10:27→20:51)
[2022-05-17] MEDS: HYDROmorphone HCl 0.5 MG/0.5 ML SYRINGE 0.25 MG IVPUSH ×3 (12:16→22:51)
--- NOTE | 2022-05-17 18:10 | PC.NURSE ---
Assumed care at 07:00. Patient initially on high flow 30% and 30 LPM. Lethargic but able to express needs at times in complete and clear sentences about personal care. Patient able to follow commands with a flicker in all four extremities with very limited range of motion and strength with multiple contractures. Patient with pain in left 5th toe and toenails with self-reported interest in podiatry, MD aware. Patient NPO due to aspiration risk. 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 MD ordered change from high flow to 2 LPM, and this was weaned to 1 LPM and off, which was weaned off as SpO2 was 97% this afternoon, and now 91% on RA. Patient denies discomfort t thist time, but was treated with PRN dilaudid this afternoon 0.5 mg at 1218 for left toe pain, then fentanyl 25 mcg was given for WOB and for pain this afternoon. Discussed pain med options with MD, and continuing on dilaudid for pain at this time. Patient's vital signs and interventions have been adjusted per HAND CIGAR MAKING SUPERVISOR standard of care, and MD has addressed non-comfort related medications, including lovenox, discontinued. some mild hematuria noted, and MD aware.
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
[2022-05-18] MEDS: fentaNYL citrate/PF 100 MCG/2 ML VIAL 25 MCG IVPUSH ×4 (01:20→22:00)
[2022-05-18] MEDS: HYDROmorphone HCl 0.5 MG/0.5 ML SYRINGE 0.25 MG IVPUSH ×7 (04:49→19:55)
[2022-05-18 08:00] VITALS: BP 94/50; PULSE 93; RESP 15; O2SAT 86
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
--- NOTE | 2022-05-18 13:10 | MHC.CM.PN ---
CLINICAL UPDATES SENT TO [facility] NEITHER FACILITY ACCEPTS [facility] PENDING STATUS ONCE BENFITS ARE SECURED, CASE MANAGMENT CAN REACH OUT TO FACILITIES IN HOPES OF SECURING A BED
[2022-05-18 15:58] VITALS: BP 95/50; PULSE 108; RESP 15; O2SAT 85
[2022-05-18 20:02] VITALS: TEMP 37.3
[2022-05-18 22:00] VITALS: RESP 30
--- NOTE | 2022-05-19 11:07 | P.PNIM_ITS ---
Subjective Subjective Date of Service: 05/19/22 Interval History: Seen in follow up: ICU step down yesterday for ARDS, hypercapnic respiratory failure, now [facility] Interval history: Pt awake and alert, seating she does not feel well and needs help with breathing Review of Systems Review of Systems: Yes all other systems are reviewed and are negative Physical Exam Vital Signs: Vital Signs: Last Vital Signs Temp 99.2 F 05/18/22 20:02 Pulse 108 H 05/18/22 15:58 Resp 30 H 05/18/22 22:00 BP 95/50 L 05/18/22 15:58 Pulse Ox 85 L 05/18/22 15:58 O2 Del Method 05/18/22 15:58 O2 Flow Rate 2 05/18/22 08:00 FiO2 30 05/17/22 14:00 BMI result Body Mass Index 37.5 Constitutional - Awake and Alert, No apparent distress Eyes - PERRLA, EOMI Cardiovascular - S1S2, RRR, 4+ pitting edema BLE Respiratory - Increased work of breahting with accessory muscle usage, coarse crackles and diffuse rhonchi bilaterally Extremities - no calf tenderness bilaterally Skin - Warm/Dry Neurological - Alert & oriented x3, CN II-XII in tact, 5/5 strength BUE and BLE Psychological - Appropriate affect Objective Data Active Medications Albuterol/Ipratropium (Albuterol/Iprat 2.5/0.5mg 3 Ml Ampul.Neb) 3 ml INHALE RQ4H WHILE AWAKE PRN PRN Reason: SOB or wheezing. Artificial Tears (Artificial Tears 15 Ml Drops) 1 drop EYE-BOTH Q4H PRN PRN Reason: Dry Eyes Fentanyl (Fentanyl Citrate/Pf 100 Mcg/2 Ml Vial) 25 mcg IVPUSH Q5M PRN; Protocol PRN Reason: WOB Last Admin: 05/18/22 22:00 Dose: 25 mcg Documented By: LARS Hydromorphone HCl (Hydromorphone Hcl 0.5 Mg/0.5 Ml Syringe) 0.25 mg IVPUSH Q1H PRN; Protocol PRN Reason: Pain, Moderate (Pain Scale 4-6 Last Admin: 05/18/22 19:55 Dose: 0.25 mg Documented By: LARS Pharmacy Consult (Consult Rx Perform Med Rec) 1 each MISCELLANE ONCE PRN PRN Reason: Consult order Labs CBC & Chem 7: 05/17/22 05:08 05/17/22 05:08 Assessment and Plan (1) Hypernatremia: Status: Acute (2) Ankle pain: Status: Acute Plan 81yo F with AF (persistent?) + HFpEF, and anxiety initially admitted to medicine on 02/20 for hypotension and UTI initially was awaiting for LTC placement but became hypotensive and unresponsive on 05/11 and was tranferred to ICU and had positive UA concerning for infection, though ultimately grew coag-neg staph from urine and blood determined to be contaminant Hypernatremia torsemide held follow BMP contraction alkalosis 08/07 toresmide use Acetzolamide follow BMP ankle pain Continue gabapentin to 200 mg b.i.d. Oxycodone 2.5 mg q.i.d. 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 at home continue current therapies Psoriatic arthritis Pain medication as needed adjust as indicated left eye subconjuctval haemorrage asymptomatic, resolved VTE ppx warfarin inpatient need: pending LTC placement, safe disposition Quality Stroke Does the patient have a stroke diagnosis?: No VTE Prior VTE?: No VTE Risk Level:: Medical - moderate - high VTE Device Contraindication: Treatment Not Indicated VTE Drug Contraindication: Treatment Not Indicated
--- NOTE | 2022-05-19 11:58 | MHC.CM.PN ---
CM was approached by [facility] /Brandi who indicated that Patient is close to having everything in place for the [employer] ezio. CM will follow.
--- NOTE | 2022-05-19 12:11 | MHC.CLN ---
F/U PT IS NOW [facility] DIET RX: NPO-CAN CHANGE TO FEED FROM FLOOR DIET NEEDED FOR [facility] WILL FOLLOW WITH TEAM AND PROVIDE SUPPORT NEEDED RD TO FOLLOW [id number]
--- NOTE | 2022-05-19 12:56 | PM.DDS ---
Discharge Sum: Prov Provider Primary care physician: Yohana Shirley NP Admitting clinician: Willem Grayson Attending physician on admission: Willem Grayson Consults: 02/21/22 09:47 Consult to Infectious Diseases Routine Consulting Provider: Zaynab Pepper Reason for consultation: bacteremia Has provider been notified: No 02/22/22 15:36 Consult to Cardiology Routine Consulting Provider: Dougie cMkeon Reason for consultation: afib rvr Has provider been notified: No 03/05/22 11:16 Consult to Psychiatry Routine Consulting Provider: Sheila Matute Reason for consultation: anxiety Has provider been notified: No 05/12/22 10:23 Consult to Pulmonology Routine Consulting Provider: Richelle Rapp Reason for consultation: ? Left lung collapse Has provider been notified: Yes Pronouncing clinician: Jennifer Muñoz Discharge Sum: Diag PCOD Cause of : Acute respiratory failure Contributing Factors (1) Acute respiratory distress syndrome (ARDS): (2) Cor pulmonale, acute: (3) Hypercapnic respiratory failure: (4) Chronic heart failure: Discharge Sum: Summary Date and Time Date of admission: 02/20/22 11:08 Summary Details: 82-year-old female initially admitted to Medicine on 02/20 for UTI with extended stay for long-term care placement. On 05/11/22 patient was found unresponsive except to painful stimuli with moderate JVD and transferred to ICU. Bedside echo showed significantly dilated right ventricle and right atrium with hypokinesis with a small hyperdynamic LV and no primary valvar pericardial disease with ABG showing pH 7.14/172/99/23 wtih acute hypercapnic respiratory failure /ARDS. The patient was intubated for stabilization and chest x-ray showed marked loss of volume on the left side with question complete LLL collapse. While in the ICU, AFib rate treated with metoprolol and diltiazem. CTA chest ruled out PE. There were small to moderate pleural effusions as well as bolus disease suggestive of COPD. Noted to have cor pulmonale. She underwent bronchoscopy on 05/13 to look at the left lung collapse without any bronchial obstructions or obstructing bronchial lesions noted. No definitive Koss of the LLL collapse was found. Thought to be secondary to positioning. The patient was vigorously diuresed and patient was extubated successfully on 05/15. Right-sided thoracentesis that day drained 500 cc serous fluid and oxygenation did improve. Given her poor prognosis, discussion was had with patient's healthcare proxy, son Rashaad, who was in agreement with ICU provider that patient was in ending phase of life and no aggressive measures were recommended. DNR status, no artificial feeding tubes were agreed upon and goal was comfort measures only. The patient was tapered off supplemental O2 and was started on p.r.n. hydromorphone and fentanyl for increased work of breathing. The patient was found pulseless with pupils unresponsive to light and without breathing by nursing staff and this provider was called to bedside with pronounced at 12:07 after exam revealed patient pulseless, apneic, with fixed dilated pupils nonresponsive to light. Patient's family at bedside. Additional Data Confirmation of as documented by pronouncing clinician: no pulse, no respirations, no heart sounds and pupils fixed and dilated Family: at bedside Attending physician: SHEILA Arce Was code activated?: No Autopsy requested?: No coroner/medical examiner notified?: No Organ bank notified?: No Advance directives: Yes Hospice patient?: No
--- NOTE | 2022-06-05 13:24 | P.CDIR_ITS ---
Documented by User: Sania Dash RN 06/05/22 13:26 Retrospective Query PHYSICIAN'S DOCUMENTATION REQUEST Date of Query: 06/05/22 1324 Patient Name: Tobias Anguiano Admit Date: 02/20/22 Dear Doctor, A review of the medical record indicates additional documentation may be needed. Please review below and update the documentation accordingly. Clinical Indicators: Risk Factors/Clinical Indicators/Treatments Per ICU note 05/17/22: CHF on CXR (HFpEF).? Diastolic heart failure 2? severe LVH.? Needs diuresis. Bilateral pleural effusions 2? heart failure Please provide further specificity regarding the most likely type and acuity of CHF you are evaluating, treating, or monitoring. Examples include: Acuity: * Acute * Chronic * Acute on chronic * Unable to determine Use of terms such as suspected, likely, concern for, or probable (associated with a specific diagnosis that is being evaluated, monitored, or treated as if it exists) are acceptable and can be coded in the inpatient setting, when documented at the time of discharge. Thank you, Sania Dash RN Extension: [phone] Please use your independent medical judgment in providing your response. THIS QUERY IS PART OF THE PERMANENT MEDICAL RECORD Documented by User: Abigail Sawant MD 06/06/22 12:34 Retrospective Query Provider Response: Other (I was not the attending on 05/17/22. pt was in the ICU on 05/17/22)
== END 2022-05-19 16:04 | disposition expired | DRG 308 ==
LOC: HO.ED 02-20 10:05 → HO.EDOVER 02-20 11:25 → HO.IMC 02-21 16:39 → HO.S3 03-16 15:14 → HO.ICU 05-11 15:57 → HO.IMC 05-19 02:39
PROVIDERS: Anesthesiology; Emergency Medicine; Family Medicine; Hospitalist; Internal Medicine; Internal Medicine Cardiovascular Disease; Nurse Practitioner Acute Care; Physician Assistant; Physician Assistant Medical; Student in an Organized Health Care Education/Training Program; Admitting Provider Family Medicine; Emergency Provider Emergency Medicine; PCP Nurse Practitioner Family; Visit Provider Physician Assistant
DX: I48.19 Other persistent atrial fibrillation (principal); G93.6 Cerebral edema; J80 Acute respiratory distress syndrome; I50.33 Acute on chronic diastolic (congestive) heart failure; J98.11 Atelectasis; E87.3 Alkalosis; E87.0 Hyperosmolality and hypernatremia; J98.19 Other pulmonary collapse; N17.9 Acute kidney failure, unspecified; J91.8 Pleural effusion in other conditions classified elsewhere; E86.1 Hypovolemia; R32 Unspecified urinary incontinence; L40.50 Arthropathic psoriasis, unspecified; H11.32 Conjunctival hemorrhage, left eye; Z66 Do not resuscitate; Z51.5 Encounter for palliative care; I95.89 Other hypotension; I11.0 Hypertensive heart disease with heart failure; L89.311 Pressure ulcer of right buttock, stage 1; I45.10 Unspecified right bundle-branch block; E83.39 Other disorders of phosphorus metabolism; R79.1 Abnormal coagulation profile; J98.09 Other diseases of bronchus, not elsewhere classified; F41.9 Anxiety disorder, unspecified; T50.2X5A Adverse effect of carbonic-anhydrase inhibitors, benzothiadiazides and other diuretics, initial encounter; I27.81 Cor pulmonale (chronic); J98.4 Other disorders of lung; E87.6 Hypokalemia; E83.42 Hypomagnesemia; Z20.822 Contact with and (suspected) exposure to COVID-19; Z75.1 Person awaiting admission to adequate facility elsewhere; Z74.01 Bed confinement status; Z79.01 Long term (current) use of anticoagulants; Z79.899 Other long term (current) drug therapy
CPT/HCPCS: 32555; 36415; 71045; 71046; 71250; 71275; 80048; 80053; 80076; 80307; 81001; 81003; 82040; 82565; 82803; 82947; 83605; 83735; 83880; 84100; 84132; 84484; 85025; 85027; 85610; 85730; 87040; 87070; 87086; 87147; 87205; 87635; 88112; 93005; 93306; 93308; 94002; 94003; 94640; 94799; 96361; 96365; 96375; 97110; 97162; 97166; 99285; C1758; J0610; J0696; J1170; J1650; J1940; J2270; J2920; J2930; J3010; J3370; J3475; P9047; Q9967